=== PATIENT | male | born 1945 | race Caucasian/White ===

== ENCOUNTER → 2017-06-14 13:21 | Outpatient (CLI) | payer MEDICARE, SELFPAY ==
--- NOTE | 2017-06-14 13:23 | RAD_ITS ---
STUDY: X-RAY - PELVIS AND RIGHT HIP REASON FOR EXAM: Male, 72 years old. Follow-up after right hip surgery. TECHNIQUE: Radiological exam, hip, unilateral, with pelvis when performed; 2 or 3 views. COMPARISON: January 19, 2017 FINDINGS: There is a non-specific bowel gas pattern. There are phleboliths in the pelvis. There is stable generalized osteopenia. Normal bilateral iliac wings, sacroiliac joints and visualized sacrum. Normal bilateral superior and inferior pubic rami. Normal pubic symphysis. Normal bilateral ischial tuberosities. There is a stable intramedullary rishi within the proximal femur with interlocking femoral nail. No complications are noted. There is minimal callus formation at the previously described fracture site. No complications are noted. RAD/Hip 2-3 Views with Pelvis IMPRESSION: Stable osteopenia and postsurgical changes. No complications. Electronically Signed: Constantino Rucker MD at 10:17 EST , Service support ,
== END ==
PROVIDERS: Family Provider Family Medicine; PCP Family Medicine; Visit Provider Orthopaedic Surgery
DX: M85.89 Other specified disorders of bone density and structure, multiple sites (principal)
CPT/HCPCS: 73502

== ENCOUNTER → 2017-10-29 15:59 | Outpatient (CLI) | payer MEDICARE, SELFPAY ==
[2017-10-29 17:07] LABS: Thyroid Stim Hormone (TSH) 0.54 uIU/mL (0.358-3.74)
== END ==
PROVIDERS: Family Provider Family Medicine; PCP Family Medicine; Visit Provider Family Medicine
DX: R53.83 Other fatigue (principal)
CPT/HCPCS: 36415; 84443

== ENCOUNTER → 2017-12-25 10:07 | Outpatient (CLI) | payer MEDICARE, SELFPAY ==
[2017-12-25 11:46] LABS: PSA,Total- Diagnostic 8.17 ng/mL (0.0-4.0)
== END ==
PROVIDERS: Family Provider Family Medicine; PCP Family Medicine; Visit Provider Nurse Practitioner Adult Health
DX: R97.20 Elevated prostate specific antigen [PSA] (principal)
CPT/HCPCS: 36415; 84153

== ENCOUNTER → 2018-01-28 08:03 | Outpatient (CLI) | payer MEDICARE, SELFPAY ==
--- NOTE | 2018-01-28 | IMM_PTH ---
PATIENT: BERNARDA JOSEPH LOC: [facility] U#:[id number] AGE/SX: 79/M ROOM: RE01/28/[address]: Dr. Claudio Garcia MD : 1945 BED: DIS: SPEC #: [id number] RECD: 01/30/18 13:20 STATUS: FABI REQ #: [id number] ATDEO: 01/28/18 00:[address]: Claudio Garcia DEPT: IMMUNOHISTOCHEMISTRY RECD BY: Cailin Rangel ENTERED: 01/30/18 13:23 SP TYPE: IMMUNO OTHR DR: Dr. Luis Medina MD Tissues: B - PROSTATE RIGHT C - PROSTATE RIGHT E - PROSTATE LEFT F - PROSTATE LEFT Procedures: CK8 (add) 34BE12 (add) P40 (add) 34BE12 (initial) PHYSICIAN & INSTITUTION [place] [id number] SPECIMEN INFORMATION: Tissue Source: B - Right prostate mid, C - Right prostate base, E - Left prostate mid, F - Left prostate base Clinical Info: Elevated PSA Specimen Number: [id number] B, C, E, F CPT code: 42005, 88308 x8 METHODOLOGY: Deparaffinized sections of prefer/formalin-fixed tissue or PAP/DQ stained slides are incubated with monoclonal/polyclonal antibodies/oligonucleotide probes. Localization is made via biotin free immunoperoxidase method. Appropriate controls are performed and reacted as expected. Results on target cell population are indicated in the following table: RESULTS: ANTIBODY / CLONE RESULT Block B P40 (BC28) positive 34BE12 (34BE12) positive Block C P40 (BC28) negative 34BE12 (34BE12) negative Block E P40 (BC28) negative 34BE12 (34BE12) negative Block F P40 (BC28) negative 34BE12 (34BE12) negative CK8 (39uozlO70) positive These tests were developed and their performance characteristics determined by [facility]. They may not have been cleared or approved by the U.S. Food and Drug Administration. The FDA has determined that such clearance or approval is not necessary. INTERPRETATION: B. Right prostate, mid, core biopsy: Negative for adenocarcinoma. C. Right prostate, base, core biopsy: Adenocarcinoma. E. Left prostate, mid, core biopsy: Adenocarcinoma. F. Left prostate, base, core biopsy: Adenocarcinoma. SJ:vangie 01/31/18
--- NOTE | 2018-01-28 08:00 | PROSBIL_PTH ---
PATIENT: BERNARDA JOSEPH LOC: [facility] U#:[id number] AGE/SX: 79/M ROOM: RE01/28/[address]: Dr. Claudio Garcia MD : 1945 BED: DIS: SPEC #: [id number] RECD: 01/28/18 17:01 STATUS: FABI PARKER #: [id number] TADEO: 01/28/18 08:[address]: Claudio Garcia DEPT: SURGICAL PATHOLOGY RECD BY: Juan Mahan ENTERED: 01/29/18 13:26 SP TYPE: PROST BX RADHA DR: Dr. Luis Medina MD Tissues: A - PROSTATE RIGHT B - PROSTATE RIGHT C - PROSTATE RIGHT D - PROSTATE LEFT E - PROSTATE LEFT F - PROSTATE LEFT Procedures: PROSTATE BX HEADER OPERATION: Prostate biopsy PRE-OP DIAGNOSIS: Elevated PSA TISSUE SUBMITTED: A - Right apex, B - Right mid, C - Right base, D - Left apex, E - Left mid, F - Left base MICROSCOPIC DIAGNOSIS A. Right prostate, apex, core biopsy: A fragment of fibromuscular tissue, no pathologic diagnosis. B. Right prostate, mid, core biopsy: Prostatic tissue, negative for malignancy. See comment. C. Right prostate, base, core biopsy: Prostatic adenocarcinoma: [place] grade: 3+3=6 Number of cores involved: 1 out 2 Proportion of tissue involved: <5% Perineural invasion: Not identified. Greatest tumor length: <0.1 cm See comment. D. Left prostate, apex, core biopsy: Prostatic tissue, negative for malignancy. E. Left prostate, mid, core biopsy: Prostatic adenocarcinoma: [place] grade: 3+3=6 Number of cores involved: 1 out of 1 Proportion of tissue involved: ~30% Perineural invasion: Not identified. Greatest tumor length: 0.4 cm See comment. F. Left prostate, base, core biopsy: Prostatic adenocarcinoma: [place] grade: 4+3=7 Number of cores involved: 1 out of 2 Proportion of tissue involved: <5% Perineural invasion: Not identified. Greatest tumor length: 0.1 cm Focal atrophy. See comment. SJ:vangie 01/30/18 COMMENT B, C, E & F - Immunohistochemistry ([id number]) supports the above diagnosis. This case has been reviewed in consultation with Dr. Hoang who concurs with the above diagnosis. MICROSCOPIC DESCRIPTION Slides are reviewed. GROSS DESCRIPTION A - Received is one container designated prostate, right apex. The specimen consists of one elongated fragment of light buchanan-white soft tissue measuring 0.7 cm in length and 0.1 cm in diameter. The specimen is totally submitted in one cassette. B - Received is one container designated prostate, right mid. The specimen consists of two elongated fragments of light buchanan-white soft tissue measuring 1 and 1.5 cm in length and 0.1 cm in diameter. The specimen is totally submitted in one cassette. C - Received is one container designated prostate, right base. The specimen consists of two elongated fragments of light buchanan-white soft tissue measuring 1 and 1.5 cm in length and 0.1 cm in diameter. The specimen is totally submitted in one cassette. D - Received is one container designated prostate, left apex. The specimen consists of two elongated fragments of light buchanan-white soft tissue measuring 1 and 2 cm in length and 0.1 cm in diameter. The specimen is totally submitted in one cassette. E - Received is one container designated prostate, left mid. The specimen consists of one elongated fragment of light buchanan-white soft tissue measuring 1.5 cm in length and 0.1 cm in diameter. The specimen is totally submitted in one cassette. F - Received is one container designated prostate, left base. The specimen consists of two elongated fragments of light buchanan-white soft tissue measuring 1.3 and 2 cm in length and 0.1 cm in diameter. The specimen is totally submitted in one cassette. / SJ:rg 01/29/18 TC:0 CPT: G0146
== END ==
PROVIDERS: Family Provider Family Medicine; PCP Family Medicine; Referring Provider Urology; Visit Provider Urology
DX: R97.20 Elevated prostate specific antigen [PSA] (principal)
CPT/HCPCS: 88305; 88341; 88342; G0416

== ENCOUNTER → 2018-02-08 08:20 | Outpatient (CLI) | payer MEDICARE, SELFPAY ==
--- NOTE | 2018-02-08 08:22 | NM_ITS ---
CLINICAL: 72-year-old male with history of recent diagnosis of primary prostate carcinoma. WHOLE BODY 99m Tc MDP RADIONUCLIDE BONE SCINTIGRAPHY COMPARISON: Previous limited three phase bone scintigraphy study dated 01/24/2017 FINDINGS: Following the intravenous administration of 24.7 mCi of 99m Tc MDP, whole body bone images reveal: 1. Increased radiopharmaceutical concentration is redefined in the right proximal femoral metaphysis-intertrochanteric region, proximal femoral diaphysis. The intensity of uptake on the current examination is significantly reduced when compared to the study dated 01/24/2017. 2. An increase in tracer concentration is identified in the sternoclavicular and acromioclavicular compartments of both shoulders, upper-lower lower cervical spine posteriorly on the left and right, second-10th thoracic vertebra posteriorly on the right, 12th thoracic vertebra posteriorly on the left, fifth lumbar vertebra posteriorly on the right, the right wrist. 3. The remaining skeletal structures are scintigraphically unremarkable with normal-appearing renal images and urinary bladder activity identified. A significant thoracic-lumbar scoliosis is defined. Asymmetric increased uptake is visualized in the region of the right frontal orbital calvarium. NM/Bone Scan Whole Body IMPRESSION: 1. The increase in radiopharmaceutical concentration identified in the right proximal femur remains consistent with osteoblastic turnover attributed to trauma-fracture. 2. 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 3. Facilitated uptake noted in the region of the right frontal calvarium may be further investigated with plain film radiography. 4. Overall compared to the previous 3 phase bone scintigraphy study dated 01/24/2017, there is significant interval improvement in the previously defined right proximal femur fracture. 5. There is no definitive typical scintigraphic evidence of diffuse skeletal metastatic disease on the current examination. Electronically Signed: Juan Mcbride DO at 13:07 EDT Tel , Service support ,
== END ==
PROVIDERS: Family Provider Family Medicine; PCP Family Medicine; Referring Provider Urology; Visit Provider Urology
DX: C61 Malignant neoplasm of prostate (principal)
CPT/HCPCS: 78306

== ENCOUNTER → 2018-05-16 14:30 | Outpatient (CLI) | payer MEDICARE, SELFPAY ==
[2018-05-16 16:48] LABS: PSA,Total- Diagnostic 8.91 ng/mL (0.0-4.0)
== END ==
PROVIDERS: Family Provider Family Medicine; PCP Family Medicine; Referring Provider Urology; Visit Provider Urology
DX: C61 Malignant neoplasm of prostate (principal)
CPT/HCPCS: 36415; 84153

== ENCOUNTER → 2018-11-04 | Outpatient (CLI) | payer MEDICARE, SELFPAY ==
[2018-11-04 14:07] LABS: PSA,Total- Diagnostic 9.28 ng/mL (0.0-4.0)
== END | disposition home or self-care (01) ==
LOC: LAB 13:02
PROVIDERS: Family Provider Family Medicine; PCP Family Medicine; Referring Provider Urology; Visit Provider Urology
DX: C61 Malignant neoplasm of prostate (principal)
CPT/HCPCS: 36415; 84153

== ENCOUNTER → 2018-12-03 13:09 | Outpatient (CLI) | payer MEDICARE, SELFPAY ==
--- NOTE | 2018-12-03 | IMM_PTH ---
PATIENT: BERNARDA JOSEPH LOC: [facility] U#:[id number] AGE/SX: 79/M ROOM: RE12/03/[address]: Dr. Claudio Garcia MD : 1945 BED: DIS: SPEC #: [id number] RECD: 12/04/18 11:38 STATUS: FABI RELiu #: [id number] TADEO: 12/03/18 00:[address]: Claudio Garcia DEPT: IMMUNOHISTOCHEMISTRY RECD BY: Cailin Rangel ENTERED: 12/04/18 11:40 SP TYPE: IMMUNO OTHR DR: Dr. Luis Medina MD Tissues: C - PROSTATE RIGHT E - PROSTATE LEFT Procedures: 34BE12 (add) P40 (add) 34BE12 (initial) PHYSICIAN & INSTITUTION [place] [address] SPECIMEN INFORMATION: Tissue Source: C - Right prostate, base, core biopsy, E - Left prostate, mid, core biopsy Clinical Info: Elevated PSA Specimen Number: [id number] C & E CPT code: 48802 METHODOLOGY: Deparaffinized sections of prefer/formalin-fixed tissue or PAP/DQ stained slides are incubated with monoclonal/polyclonal antibodies/oligonucleotide probes. Localization is made via biotin free immunoperoxidase method. Appropriate controls are performed and reacted as expected. Results on target cell population are indicated in the following table: RESULTS: ANTIBODY / CLONE RESULT Block C P40 (BC28) negative 34BE12 (34BE12) negative Block E P40 (BC28) negative 34BE12 (34BE12) negative These tests were developed and their performance characteristics determined by [facility]. They may not have been cleared or approved by the U.S. Food and Drug Administration. The FDA has determined that such clearance or approval is not necessary. INTERPRETATION: C. Right prostate, base, core biopsy: Adenocarcinoma. E. Left prostate, mid, core biopsy: Adenocarcinoma. SJ:vangie 12/04/18
--- NOTE | 2018-12-03 08:00 | PROSBIL_PTH ---
PATIENT: BERNARDA JOSEPH LOC: [facility] U#:[id number] AGE/SX: 79/M ROOM: RE12/03/[address]: Dr. Claudio Garcia MD : 1945 BED: DIS: SPEC #: [id number] RECD: 12/03/18 12:15 STATUS: FABI PARKER #: [id number] TADEO: 12/03/18 08:[address]: Claudio Garcia DEPT: SURGICAL PATHOLOGY RECD BY: Abdias Santos ENTERED: 12/03/18 13:26 SP TYPE: PROST BX RADHA DR: Dr. Luis Medina MD Tissues: A - PROSTATE RIGHT B - PROSTATE RIGHT C - PROSTATE RIGHT D - PROSTATE LEFT E - PROSTATE LEFT F - PROSTATE LEFT Procedures: PROSTATE BX HEADER OPERATION: Prostate biopsy PRE-OP DIAGNOSIS: Elevated PSA TISSUE SUBMITTED: A - Right apex, B - Right mid, C - Right base, D - Left apex, E - Left mid, F - Left base MICROSCOPIC DIAGNOSIS A. Right prostate, apex, core biopsy: Prostatic tissue, negative for malignancy. B. Right prostate, mid, core biopsy: Prostatic tissue, negative for malignancy. C. Right prostate, base, core biopsy: Prostatic adenocarcinoma: Diana grade: 3+4=7 Number of cores involved: 2/2 Proportion of tissue involved: ~5% Perineural invasion: Not identified. Greatest tumor length: 0.2 cm See comment. D. Left prostate, apex, core biopsy: Prostatic tissue, negative for malignancy. See comment. E. Left prostate, mid, core biopsy: Prostatic adenocarcinoma: Diana grade: 3+3=6 Number of cores involved: 2/4, Proportion of tissue involved: ~10% Perineural invasion: Not identified. Greatest tumor length: 0.4 cm. See comment. F. Left prostate, base, core biopsy: Prostatic adenocarcinoma: Diana grade: 4+5=9 Number of cores involved: 1/2 Proportion of tissue involved: ~20% Perineural invasion: Not identified. Greatest tumor length: 0.5 cm Focal atrophy and chronic inflammation. SJ:vangie 12/04/18 COMMENT C. Immunohistochemistry ([id number]) supports the above diagnosis. D. The specimen predominantly consists of skeletal muscle tissue and stromal tissue. E. Immunohistochemistry ([id number]) supports the above diagnosis. Please make reference to previous specimen ([id number]) right prostate, base, left prostate, mid and left prostate, base with diagnosis of prostatic adenocarcinoma. Case has been reviewed in consultation with Dr. Hoang who concurs with the above diagnosis. IDC:AM MICROSCOPIC DESCRIPTION Slides are reviewed. GROSS DESCRIPTION A - Received is one container designated prostate, right apex. The specimen consists of two elongated fragments of light buchanan-white soft tissue each measuring 1 cm in length and 0.1 cm in diameter. The specimen is totally submitted in one cassette. B - Received is one container designated prostate, right mid. The specimen consists of two elongated fragments of light buchanan-white soft tissue each measuring 1.5 cm in length and 0.1 cm in diameter. The specimen is totally submitted in one cassette. C - Received is one container designated prostate, right base. The specimen consists of two elongated fragments of light buchanan-white soft tissue each measuring 1 cm in length and 0.1 cm in diameter. The specimen is totally submitted in one cassette. D - Received is one container designated prostate, left apex. The specimen consists of two elongated fragments of light buchanan-white soft tissue each measuring 1 cm in length and 0.1 cm in diameter. The specimen is totally submitted in one cassette. E - Received is one container designated prostate, left mid. The specimen consists of four elongated fragments of light buchanan-white soft tissue each measuring 0.8 cm in length and 0.1 cm in diameter. The specimen is totally submitted in one cassette. F - Received is one container designated prostate, left base. The specimen consists of two elongated fragments of light buchanan-white soft tissue each measuring 1.5 cm in length and 0.1 cm in diameter. The specimen is totally submitted in one cassette. / AM:vangie 12/03/18 TC:0 CPT: G0146
== END ==
PROVIDERS: Family Provider Family Medicine; PCP Family Medicine; Referring Provider Urology; Visit Provider Urology
DX: R97.20 Elevated prostate specific antigen [PSA] (principal)
CPT/HCPCS: 88305; 88341; 88342; G0416

== ENCOUNTER 2019-01-15 10:51 | Day surgery (SDC) | payer MEDICARE, SELFPAY ==
[2019-01-15 11:10] VITALS: BP 153/83; PULSE 108; RESP 15; TEMP 37; O2SAT 100; BMI 24.7
[2019-01-15] MEDS: Lactated Ringers 1,000 ML 100 ML IV (11:21)
--- NOTE | 2019-01-15 13:40 | DCINST_ITS ---
Discharge Diet: Light diet - advance as tolerated Discharge Activity: Return to Normal Activity Suture Line Care: Avoid Pulling/Pushing, Avoid Pinching/Bending Allergies/Adverse Reactions: Allergies metronidazole [From Flagyl] Adverse Reaction (Verified 01/15/19 11:04) Nausea/Vom/Diarrhea VOMITING DECONGESTANTS Allergy (Uncoded 01/15/19 11:04) TACHYCARDIA Medications to take at Discharge Tamsulosin HCl 1 tab PO DAILY 07/22/15 Imipramine HCl 25 mg PO QHS 01/02/17 multivitamin tablet 1 tab PO QDAY 04/27/17 oxycodone-acetaminophen 5 mg-325 mg tablet 1 tab PO TID 04/27/17 Bicalutamide [Casodex] 50 mg PO DAILY 01/08/19 L.acidoph,Paracasei, B.lactis [Probiotic] 1 ea PO DAILY 01/08/19 Niacin 1,000 mg PO DAILY 01/08/19 Nifedipine [Nifedipine ER] 30 mg PO DAILY 01/08/19 Sennosides [Senna Lax] 8.6 mg PO DAILY 01/08/19 Sulfamethoxazole/Trimethoprim [Sulfamethoxazole-Tmp Ds Tablet] 1 ea PO PRN PRN 01/08/19 Primary Care Physician: Luis Medina MD [Primary Care Provider] - Test Results: Test results from this visit will be discussed in further detail at your follow- up appointment, if applicable. Please Follow Up With: Claudio Garcia MD When: keep next appt
--- NOTE | 2019-01-15 13:41 | OP.PCM_ITS ---
Report of Operation Date of Procedure: 01/15/19 Pre-Operative Diagnosis: Prostate cancer Post-Operative Diagnosis: Same Surgery/Procedure Performed:: Transperineal placement of gold fiducial markers for radiation planning, and transperineal placement of spacer hydrogel organ at risk. Description of Surgical Findings:: 73-year-old male who was found to have prostate cancer elected for observation initially but the PSA kept rising with a follow-up biopsy that showed higher grade cancer so at this point he is going to undergo treatment of his prostate cancer we talked about options of treatment including surgery to remove the prostate or radiation therapy in consultation with his physician he has not had a second opinion with radiation oncology he discussed with me regarding surgery and after weighing the risk and benefits all the procedures he wishes to proceed with radiation therapy. Today were in place gold fiducial markers of the prostate for treatment planning for the radiation and also venous place a hydrogel spacer gel to hopefully separate the rectum off the prostate to create some space for his radiation treatment to spare the rectum of rectal task to see. He understands the risk of the procedure include bleeding and infection and migration of the hydrogel and the gold markers. 73-year-old male taken back to the operating room after smooth induction of anesthesia he was placed in dorsolithotomy position with the legs in stirrups we then placed the brachytherapy template on the table adjusted the template height to the table we used a biplanar ultrasound by SHAHID to perform ultrasonography of the prostate. Identify the prostate base the apex seminal vesicles the right and left aspect of the prostate the spacer Retzius above the prostate and also the space below the prostate that do not be a space was identified the fat plane below the prostate was also identified. Once identifying the proper landmarks I then used the first gold leaf laborer on a 18-gauge needle was advanced on the patient's right side into the prostate mid and then we pulled off the stopper advanced the plunger and deployed the gold leaf laborer into the mid prostate and pulled back in the needle we then did the same procedure on the left side with 2 markers placed in the prostate base and apex once her markers were placed then the spacer hydrogel was prepared in the back table first we mixed the blue container per the kiln charger's instruction that we mixed the clear container we put the Dopplers together as instructed and after constructing the mix of hydrogel in the back table I then marked the bevel on the long needle we flushed it with saline and then used the bevel tip down to advance underneath the prostate into the fat plane in the space below the prostate above the rectum once we are in the proper plane we injected a puff of normal saline you could see the separation between the rectum and the prostate we confirmed our location by ultrasound both trans-rectal view and also biplanar view after the ultrasound confirmed our position then the hydrogel was injected into that space over course of 12 seconds created a nice separation between the rectum and the prostate. The needle was then removed the ultrasound probe was then removed exam of the prostate was performed he could feel the hydrogen gel right below the prostate pushing down the rectum. There is no extravasation of the hydrogel into the rectum. Patient was then cleaned and antiseizure was reversed he was taken back to PACU in good condition and will see him back as planned after his radiation and continue with ADT Type of Anesthesia:: General Drains: none - Admit VTE Documentation VTE Present on Admission: No VTE Mechan Device Prophylaxis: SCD's
[2019-01-15 13:50] VITALS: BP 126/90; BP 153/83; PULSE 92; RESP 16; TEMP 36.5; O2SAT 93
[2019-01-15 14:00] VITALS: BP 111/82; BP 153/83; PULSE 85; RESP 16; O2SAT 95
[2019-01-15 14:15] VITALS: BP 134/90; BP 153/83; PULSE 95; RESP 16; O2SAT 96
[2019-01-15 14:23] VITALS: BP 137/87; BP 153/83; PULSE 97; RESP 16; TEMP 36.4; O2SAT 94
[2019-01-15 15:12] VITALS: BP 130/81; BP 153/83; PULSE 94; RESP 18; TEMP 36.8; O2SAT 98
== END 2019-01-15 15:15 | disposition home health service (06) ==
LOC: SDC 10:51 → AC 10:52
PROVIDERS: Family Provider Family Medicine; PCP Family Medicine; Referring Provider Urology; Visit Provider Urology
PROC: (CPT 55874; principal; 2019-01-15 12:25)
DX: C61 Malignant neoplasm of prostate (principal); N40.1 Benign prostatic hyperplasia with lower urinary tract symptoms; R35.0 Frequency of micturition; R35.1 Nocturia; I10 Essential (primary) hypertension; E78.5 Hyperlipidemia, unspecified; R97.20 Elevated prostate specific antigen [PSA]; Z87.440 Personal history of urinary (tract) infections; Z79.899 Other long term (current) drug therapy
CPT/HCPCS: 55874; 55876; J7120; J2405

== ENCOUNTER → 2019-01-28 09:08 | Outpatient (CLI) | payer MEDICARE, SELFPAY ==
[2019-01-15 11:10] VITALS: BMI 24.7
[2019-01-27 10:18] LABS: Absolute Lymphocyte Count 1.24 X10^3/uL (0.83-4.51); Absolute Neutrophil Count 5.9 X10^3/uL (2.0-7.7); Basophil# 0.07 X10^3/uL; Basophil% 0.9 % (0-1); Eosinophil# 0.12 X10^3/uL; Eosinophils% 1.5 % (0-5); Hematocrit 48.1 % (40-54); Hemoglobin 15.7 g/dL (13.0-16.5); Lymphocyte # 1.24 X10^3/ul (4.0); Lymphocyte % 15.1 % (19-41); Mean Corp Hgb Conc 32.6 g/dL (32-36); Mean Corpuscular Hgb 29.5 pg (27.0-32.0); Mean Corpuscular Volume 90.4 fL (80-94); Mean Platelet Vol. 9.5 fl (6.2-12.0); Monocyte# 0.83 X10^3/uL; Monocyte% 10.1 % (0-10); NRBC Flagged by Analyzer 0 % (0-5); Neutrophil % 71.9 % (47-70); Platelet Count 298 K/mm3 (150-450); RBC Distribution Width CV 12.9 % (11.6-14.6); RBC Distribution Width SD 42.7 fl (35.1-43.9); Red Blood Count 5.32 M/mm3 (4.6-6.2); White Blood Count 8.2 K/mm3 (4.4-11.0)
[2019-01-27 10:57] LABS: Creatinine, Serum 0.69 mg/dL (0.70-1.30); EST Glomerular Filtration Rate 121 mL/min (>60); Est Glom Filt Rate - Afr Amer 146 mL/min (>60); PSA,Total- Diagnostic 4.65 ng/mL (0.0-4.0)
--- NOTE | 2019-01-28 09:16 | CT_ITS ---
STUDY: CT PELVIS WITH CONTRAST REASON FOR EXAM: Male, 73 years old. Prostate cancer radiation planning. RADIATION DOSAGE (If Supplied By Facility): CTDIvol = ( 24.53 ) mGy, DLP = ( 767.47 ) mGycm TECHNIQUE: Transaxial imaging of the pelvis was performed with oral contrast. IV/Oral 100ML ISOVUE 300 100 was administered intravenously. Individualized dose optimization techniques were used for this CT. COMPARISON: None. FINDINGS: Normal urinary bladder. Enlarged prostate gland with calcifications and metallic markers in the periphery. Catheter other device within the urethra. Normal visualized small intestine. There are multiple colonic diverticula of the sigmoid colon consistent with chronic diverticulosis. There is no pelvic fluid. There is no pelvic lymphadenopathy or mass lesion. Normal visualized pelvic arteries. Small umbilical hernia containing fat. Status post right hip arthroplasty which produces streak artifact. Levoscoliosis of the lumbar spine. CT/Abdomen/Pelvis WITH Contrast IMPRESSION: Prostate cancer radiation planning CT. Electronically Signed: Juan Stephenson MD at 13:52 EDT Tel , Service support ,
== END ==
PROVIDERS: Family Provider Family Medicine; PCP Family Medicine; Referring Provider Radiology Radiation Oncology; Visit Provider Radiology Radiation Oncology
DX: Z01.818 Encounter for other preprocedural examination (principal); C61 Malignant neoplasm of prostate
CPT/HCPCS: 36415; 74177; 82565; 84153; 85025; Q9967

== ENCOUNTER → 2019-02-11 13:02 | Outpatient (CLI) | payer MEDICARE, SELFPAY ==
[2019-01-15 11:10] VITALS: BMI 24.7
[2019-02-11 13:15] LABS: Bacteria 0 SEEN /hpf (None Seen); Mucous, Urine 0 SEEN /hpf (<or=2+); Red Blood Cells-Urine 0 SEEN /hpf (0-5); Squamous Epithelial Cells - UA 0 SEEN /hpf (0-5); White Blood Cells 0 SEEN /hpf (0-5)
[2019-02-11 13:46] LABS: Color, Urine Yellow (Yellow); Glucose, Dipstick Normal (Normal); Ketone-Dipstick Negative (Negative); Leukocyte Esterase-Dipstick Negative /ul (Negative); Nitrite-Dipstick Negative (Negative); Occult Blood-Urine Negative /ul (Negative); Protein-Dipstick Negative (Negative); Specific Gravity, Urine 1.015 (1.002-1.030); Urine Bilirubin Dipstick Negative (Negative); Urine Clarity Clear (Clear); Urine Urobilinogen Normal (Normal); Urine pH 6.5 (5.0 - 8.0)
== END ==
PROVIDERS: Family Provider Family Medicine; PCP Family Medicine; Referring Provider Radiology Radiation Oncology; Visit Provider Radiology Radiation Oncology
DX: C61 Malignant neoplasm of prostate (principal); R30.9 Painful micturition, unspecified
CPT/HCPCS: 81001

== ENCOUNTER → 2019-02-27 14:22 | Outpatient (CLI) | payer MEDICARE, SELFPAY ==
[2019-02-27 15:29] LABS: Absolute Lymphocyte Count 0.41 X10^3/uL (0.83-4.51); Absolute Neutrophil Count 5.5 X10^3/uL (2.0-7.7); Basophil# 0.05 X10^3/uL; Basophil% 0.7 % (0-1); Eosinophil# 0.14 X10^3/uL; Hematocrit 42.8 % (40-54); Hemoglobin 13.8 g/dL (13.0-16.5); Lymphocyte # 0.41 X10^3/ul (4.0); Lymphocyte % 5.9 % (19-41); Mean Corp Hgb Conc 32.2 g/dL (32-36); Mean Corpuscular Hgb 29.9 pg (27.0-32.0); Mean Corpuscular Volume 92.8 fL (80-94); Mean Platelet Vol. 9.9 fl (6.2-12.0); Monocyte# 0.85 X10^3/uL; Monocyte% 12.3 % (0-10); NRBC Flagged by Analyzer 0 % (0-5); Neutrophil # 5.45 X10^3/uL (2.7-7.7); Neutrophil % 78.7 % (47-70); POSITIVE DIFFERENTIAL YES; Platelet Count 256 K/mm3 (150-450); RBC Distribution Width CV 12.9 % (11.6-14.6); RBC Distribution Width SD 43.5 fl (35.1-43.9); Red Blood Count 4.61 M/mm3 (4.6-6.2); White Blood Count 6.9 K/mm3 (4.4-11.0)
[2019-02-27 15:46] LABS: Differential Indicated SCAN CRITERIA MET
[2019-02-27 16:15] LABS: Differential Comment SCANNED
== END ==
PROVIDERS: Family Provider Family Medicine; PCP Family Medicine; Referring Provider Radiology Radiation Oncology; Visit Provider Radiology Radiation Oncology
DX: C61 Malignant neoplasm of prostate (principal)
CPT/HCPCS: 36415; 85025

== ENCOUNTER → 2019-03-07 14:11 | Outpatient (CLI) | payer MEDICARE, SELFPAY ==
--- NOTE | 2019-03-07 14:33 | RAD_ITS ---
STUDY: X-RAY CHEST REASON FOR EXAM: Male, 73 years old. Evidence of breath. TECHNIQUE: PA and lateral views of the chest. COMPARISON: 01/02/2017. FINDINGS: There is poor visualization of the right mid upper lung parenchyma due to severe musculoskeletal dystrophy/deformity of the hemithorax. The visualized right mid lower lung field and left hemithorax are clear. There is no demonstrated pleural abnormality. Normal size heart. Normal mediastinum and adrian. Normal visualized pulmonary arteries. There is atherosclerotic calcification of the aortic arch with tortuosity. There are diffuse degenerative changes of the visualized thoracic spine. There is degenerative osteoarthritis of the bilateral shoulders. There is no demonstrated abnormality of the visualized soft tissue structures of the upper abdomen. RAD/Chest PA and Lateral IMPRESSION: No acute cardiopulmonary process seen. Electronically Signed: Francia Aguilar MD at 3:09 EST , Service support ,
== END ==
PROVIDERS: Family Provider Family Medicine; PCP Family Medicine; Referring Provider Family Medicine; Visit Provider Family Medicine
DX: R06.02 Shortness of breath (principal)
CPT/HCPCS: 71046

== ENCOUNTER → 2019-03-10 14:19 | Outpatient (CLI) | payer MEDICARE, SELFPAY ==
[2019-03-10 14:27] LABS: Bacteria 0 SEEN /hpf (None Seen); Mucous, Urine 0 SEEN /hpf (<or=2+); Squamous Epithelial Cells - UA 0 SEEN /hpf (0-5)
[2019-03-10 14:47] LABS: Color, Urine Amber (Yellow); Glucose, Dipstick Normal (Normal); Ketone-Dipstick Negative (Negative); Leukocyte Esterase-Dipstick 25 /ul (Negative); Nitrite-Dipstick Positive (Negative); Occult Blood-Urine 10 /ul (Negative); Protein-Dipstick Negative (Negative); Urine Clarity Sl. Cloudy (Clear); Urine Urobilinogen 8 mg/dl (Normal)
[2019-03-10 14:50] LABS: Urine Bilirubin Dipstick 3 mg/dL (Negative)
[2019-03-10 14:53] LABS: White Blood Cells 0-5 SEEN /hpf (0-5)
[2019-03-10 14:54] LABS: Red Blood Cells-Urine 0-5 SEEN /hpf (0-5)
== END ==
PROVIDERS: Family Provider Family Medicine; PCP Family Medicine; Referring Provider Radiology Radiation Oncology; Visit Provider Radiology Radiation Oncology
DX: C61 Malignant neoplasm of prostate (principal); R30.9 Painful micturition, unspecified
CPT/HCPCS: 36415; 81001

== ENCOUNTER → 2019-03-14 13:00 | Outpatient (CLI) | payer MEDICARE, SELFPAY ==
--- NOTE | 2019-03-14 13:03 | VDLE_ITS ---
Reason For Study: Edema RIGHT LEFT GSV is normal. GSV is normal. CFV is compressible, spontaneous, phasic, CFV is compressible, spontaneous, phasic, competent and demonstrates normal competent, and demonstrates normal augmentation. augmentation. FV is compressible, spontaneous, phasic, FV is compressible, spontaneous, phasic, competent and demonstrates normal competent and demonstrates normal augmentation. augmentation. POP V is compressible, spontaneous, phasic, POP V is compressible, spontaneous, phasic, competent and demonstrates normal competent and demonstrates normal augmentation. augmentation. T/P Trunk is compressible. T/P Trunk is compressible. PTV is compressible. PTV is compressible. RT PerV is compressible. LT PerV is compressible. Procedure Exam performed in department. A preliminary report was called and/or faxed to [facility]. Interpretation Summary Deep veins of the lower extremities are bilaterally patent and compressible segmentally. There is no evidence of deep vein thrombosis on either side. Valvular competence appears intact within the proximal deep venous systems bilaterally. The great saphenous veins appear bilaterally patent and compressible segmentally. Ordering Physician: Luis Medina Referring Physician: Luis Medina Performed By: Kayla Marks RVT
== END ==
PROVIDERS: Family Provider Family Medicine; PCP Family Medicine; Referring Provider Family Medicine; Visit Provider Family Medicine
DX: R60.0 Localized edema (principal)
CPT/HCPCS: 93970

== ENCOUNTER → 2019-03-19 11:24 | Outpatient (CLI) | payer MEDICARE, SELFPAY ==
[2019-03-19 12:03] LABS: Absolute Lymphocyte Count 0.29 X10^3/uL (0.83-4.51); Absolute Neutrophil Count 5.3 X10^3/uL (2.0-7.7); Basophil# 0.06 X10^3/uL; Basophil% 0.9 % (0-1); Eosinophils% 1.5 % (0-5); Hematocrit 35.3 % (40-54); Hemoglobin 11.4 g/dL (13.0-16.5); Lymphocyte # 0.29 X10^3/ul (4.0); Lymphocyte % 4.5 % (19-41); Mean Corp Hgb Conc 32.3 g/dL (32-36); Mean Corpuscular Hgb 30.9 pg (27.0-32.0); Mean Corpuscular Volume 95.7 fL (80-94); Mean Platelet Vol. 9.6 fl (6.2-12.0); Monocyte# 0.73 X10^3/uL; Monocyte% 11.3 % (0-10); NRBC Flagged by Analyzer 0 % (0-5); Neutrophil # 5.26 X10^3/uL (2.7-7.7); Neutrophil % 81.2 % (47-70); POSITIVE DIFFERENTIAL YES; Platelet Count 261 K/mm3 (150-450); RBC Distribution Width CV 13.8 % (11.6-14.6); RBC Distribution Width SD 48.2 fl (35.1-43.9); Red Blood Count 3.69 M/mm3 (4.6-6.2); White Blood Count 6.5 K/mm3 (4.4-11.0)
[2019-03-19 12:04] LABS: Differential Indicated SCAN CRITERIA MET
== END ==
PROVIDERS: Family Provider Family Medicine; PCP Family Medicine; Referring Provider Radiology Radiation Oncology; Visit Provider Radiology Radiation Oncology
DX: C61 Malignant neoplasm of prostate (principal)
CPT/HCPCS: 36415; 85025

== ENCOUNTER → 2019-08-26 09:47 | Outpatient (CLI) | payer MEDICARE, SELFPAY ==
[2019-08-26 11:01] LABS: PSA,Total- Diagnostic < 0.01 ng/mL (0.0-4.0)
== END ==
PROVIDERS: PCP Family Medicine; Referring Provider Urology; Visit Provider Urology
DX: C61 Malignant neoplasm of prostate (principal)
CPT/HCPCS: 36415; 84153

== ENCOUNTER 2020-02-03 00:42 | Emergency (ER) | payer MEDICARE, SELFPAY ==
[2020-02-03 00:43] VITALS: BP 161/107; PULSE 84; RESP 18; TEMP 36.7; O2SAT 94; BMI 24.7
--- NOTE | 2020-02-03 01:00 | RAD_ITS ---
STUDY: X-RAY - RIGHT KNEE REASON FOR EXAM: Male, 74 years old. S/P FALL -- C/O PAIN AREA OF LT GREAT TOE AND LT 1ST METATARSAL, LT LATERAL MALLEOLUS , ANTERIOR BILAT KNEES WITH RT SIDE MORE PAINFUL THAN LEFT -- HX OF POLIO -- BEST IMAGES POSSIBLE, DUE TO PATIENT''S WEAKNESS IN LEGS TECHNIQUE: 3 view(s) of the knee. COMPARISON: None. FINDINGS: There is hardware transfixing the femur, patella and tibia. There is an avulsion fracture tibial tuberosity. There is prepatellar soft tissue swelling. There is a large joint effusion. RAD/Knee 3 Views IMPRESSION: There is an avulsion fracture tibial tuberosity. There is prepatellar soft tissue swelling. There is a large joint effusion. Electronically Signed: Winston Sherman MD at 1:38 EDT , Service support ,
--- NOTE | 2020-02-03 01:00 | RAD_ITS ---
STUDY: X-RAY - LEFT ANKLE REASON FOR EXAM: Male, 74 years old. S/P FALL -- C/O PAIN AREA OF LT GREAT TOE AND LT 1ST METATARSAL, LT LATERAL MALLEOLUS , ANTERIOR BILAT KNEES WITH RT SIDE MORE PAINFUL THAN LEFT -- HX OF POLIO -- BEST IMAGES POSSIBLE, DUE TO PATIENT''S WEAKNESS IN LEGS TECHNIQUE: 3 view(s) of the ankle. COMPARISON: None. FINDINGS: Normal visualized distal tibia and fibula. Normal medial and lateral malleoli. Normal tibiotalar articulation and ankle mortise. Normal visualized talus and calcaneus. The visualized subtalar, talonavicular, calcaneocuboid and tarsal articulations are normal. The soft tissue structures are unremarkable. RAD/Ankle min 3 Views IMPRESSION: Normal x-ray examination of the ankle. Electronically Signed: Winston Sherman MD at 1:30 EDT , Service support ,
--- NOTE | 2020-02-03 01:00 | RAD_ITS ---
STUDY: X-RAY - LEFT KNEE REASON FOR EXAM: Male, 74 years old. S/P FALL -- C/O PAIN AREA OF LT GREAT TOE AND LT 1ST METATARSAL, LT LATERAL MALLEOLUS , ANTERIOR BILAT KNEES WITH RT SIDE MORE PAINFUL THAN LEFT -- HX OF POLIO -- BEST IMAGES POSSIBLE, DUE TO PATIENT''S WEAKNESS IN LEGS TECHNIQUE: 3 view(s) of the knee. COMPARISON: None. FINDINGS: Normal visualized distal femur. Normal visualized proximal tibia and fibula. Normal proximal tibiofibular articulation. Normal medial femorotibial compartment. Normal lateral femorotibial compartment. Normal patellofemoral articulation. There is prepatellar soft tissue swelling. There is NO joint dislocation. RAD/Knee 3 Views IMPRESSION: There is NO acute bony injury. There is prepatellar soft tissue swelling. There is NO joint dislocation. Electronically Signed: Winston Sherman MD at 1:32 EDT , Service support ,
--- NOTE | 2020-02-03 01:00 | RAD_ITS ---
STUDY: X-RAY - LEFT FOOT CLINICAL: Male, 74 years old. S/P FALL -- C/O PAIN AREA OF LT GREAT TOE AND LT 1ST METATARSAL, LT LATERAL MALLEOLUS , ANTERIOR BILAT KNEES WITH RT SIDE MORE PAINFUL THAN LEFT -- HX OF POLIO -- BEST IMAGES POSSIBLE, DUE TO PATIENT''S WEAKNESS IN LEGS TECHNIQUE: 3 view(s) of the foot. COMPARISON: None. FINDINGS: Normal talus, calcaneus, and tarsal bones. Normal visualized subtalar, talonavicular, calcaneocuboid, tarsal and tarsometatarsal articulations. Normal metatarsi. There is degenerative arthrosis of the metatarsophalangeal joint of the hallux with a hallux valgus deformity. Normal tibial and fibular sesamoid bones. Normal interphalangeal joint of the great toe. Normal phalanges of the great toe. Normal second through fifth metatarsophalangeal joints. Normal interphalangeal joints and phalanges of the lesser toes. The soft tissue structures are unremarkable. RAD/Foot min 3 Views IMPRESSION: There is NO acute injury. Electronically Signed: Winston Sherman MD at 1:34 EDT , Service support ,
--- NOTE | 2020-02-03 02:08 | ED.DCSUM_ITS ---
History of Present Illness Chief Complaint: Fall Narrative: Patient presenting for evaluation secondary to a fall. Patient has a underlying history of past polio. He typically ambulates with crutches. He has had multiple orthopedic surgeries specifically of his right lower extremity. Patient states that he was trying to navigate his bathroom, suffered a mechanical fall where he fell onto his knees bilaterally and then actually bent backwards and fell onto his back. Patient states that he did mildly hit his hea d, but there is no loss of consciousness. He is not on any sort of anticoagulants. His main pain is in his bilateral knees and his left ankle and left foot. Pain is moderate worse with palpation. He does have swelling in the right knee. Review of systems otherwise negative. Past Medical History - Allergies and Home Meds Allergies/Adverse Reactions: Allergies metronidazole [From Flagyl] Adverse Reaction (Verified 02/03/20 00:46) Nausea/Vom/Diarrhea VOMITING DECONGESTANTS Allergy (Uncoded 02/03/20 00:46) TACHYCARDIA Primary Care Physician: Luis Medina MD [Primary Care Provider] - Prior records reviewed: Yes Past Medical History: - - Past history of polio Surgical History: - - Right ankle surgery, spine surgery x 2, ORIF right knee. Smoking Status: Never smoker - Family History Maternal Family History: Family History (Last Reviewed 09/23/18 @ 15:14 by Samantha Garcia) Other CVA (cerebral vascular accident) Myocardial infarction Family History: Reports: No pertinent history Review of Systems All systems negative except as indicated General: Denies: Chills, Fever, Sweats Eyes: Denies: Visual changes - bilaterally, Diplopia ENT: Denies: Rhinorrhea, Sore throat Cardiovascular: Denies: Chest pain, Palpitations Respiratory: Denies: Dyspnea, Cough, Dyspnea on exertion Gastrointestinal: Denies: Abdominal pain, Nausea, Vomiting, Diarrhea, Melena, Hematochezia Genitourinary: Denies: Dysuria, Hematuria, Frequency Musculoskeletal: Reports: Extremity Pain Skin: Denies: Rash, Wounds Neurological: Reports: Weakness - Weakness at baseline secondary to polio. Den ies: Headache, Numbness Physical Exam Vital Signs/Narrative: Vital Signs Temp Pulse Resp BP Pulse Ox 02/03/20 00:43 98.1 F 84 18 161/107 H 94 Inital Vital Signs reviewed: Yes General: Well nourished, Well developed Head: Normocephalic, Atraumatic Eyes: Perrl, EOMI Neck: Nontender, Full ROM. Negative for: Spinal Tenderness Cardiovascular: Regular rate, Regular rhythm, No murmurs Respiratory: No distress, CTA bilaterally, Chest nontender Abdomen: Soft, Nontender, Nondistended, Normal bowel sounds Back: Nontender Extremeties: Examination the patient's lower extremities, left extremity shows no outward signs of trauma, minimal anterior joint line pain of the left knee. Normal range of motion. Patient complains of some minimal lateral malleolus tenderness to palpation of the left ankle, normal range of motion. He also complains of some tenderness to palpation over the first metatarsal without any outward signs of deformity. Examination of the right lower extremity shows a large joint effusion to the right knee with multiple surgical scars present, anterior joint line tenderness to palpation. Limited range of motion secondary to pain. Patient's right foot and ankle are fused, so there is no range of motion there but the patient does not complain of any pain. Diagnostic/Tx/Re-eval Clinical Impression(s) from Imaging Studies Ankle X-Ray 02/03/20 01:00 IMPRESSION: Normal x-ray examination of the ankle. Electronically Signed: Winston Sherman MD at 1:30 EDT , Service support , Foot X-Ray 02/03/20 01:00 IMPRESSION: There is NO acute injury. Electronically Signed: Winston Sherman MD at 1:34 EDT , Service support , Knee X-Ray 02/03/20 01:00 IMPRESSION: There is an avulsion fracture tibial tuberosity. There is prepatellar soft tissue swelling. There is a large joint effusion. Electronically Signed: Winston Sherman MD at 1:38 EDT , Service support , Knee X-Ray 02/03/20 01:00 IMPRESSION: There is NO acute bony injury. There is prepatellar soft tissue swelling. There is NO joint dislocation. Electronically Signed: Winston Sherman MD at 1:32 EDT , Service support , - Medical Decision Making Patient presented secondary to a mechanical fall. Primary and secondary surveys showed only injuries to the patient's lower extremities. Radiographs by my personal interpretation as well as radiology are negative in the left leg and were positive in the right leg for a tibial tuberosity avulsion fracture with large joint effusion. Patient already ambulates on crutches, I informed the patient that he will need to be touchdown weightbearing on that leg. Patient already has some ambulatory issues at baseline, I feel that immobilizing him in a knee immobilizer may set him up for another fall in a worse injury, so he will be immobilized with a [place] wrap. Patient has seen Dr. Goldstein in the past, he will follow-up there for further orthopedic evaluation and management. ED Disposition - Plan for ED Patient: Disposition: Home or Assisted Living Diagnosis: Fracture of tibial tuberosity Instructions: ED Mechanical Fall, ED Fracture Lower Extremity Referrals: Jaylyn Mercedes DO [STAFF PHYSICIAN] - As soon as possible
[2020-02-03 02:30] VITALS: BP 159/80; PULSE 85; RESP 16; O2SAT 97
--- NOTE | 2020-02-03 04:32 | ED.RN ---
see down time charting from 0200 until discharge
== END 2020-02-03 02:30 | disposition home or self-care (01) ==
PROVIDERS: Emergency Provider Emergency Medicine; PCP Family Medicine
DX: S82.154A Nondisplaced fracture of right tibial tuberosity, initial encounter for closed fracture (principal); W18.39XA Other fall on same level, initial encounter; Y93.01 Activity, walking, marching and hiking; Y92.002 Bathroom of unspecified non-institutional (private) residence as the place of occurrence of the external cause; Y99.9 Unspecified external cause status
CPT/HCPCS: 73562; 73610; 73630

== ENCOUNTER 2020-02-03 16:27 | Observation (INO) | payer MEDICARE, SELFPAY ==
[2020-02-03 00:43] VITALS: BMI 24.7
[2020-02-03 16:28] VITALS: BP 146/85; BP 154/88; PULSE 102; RESP 17; TEMP 37.2; O2SAT 96; BMI 24.1
--- NOTE | 2020-02-03 16:36 | CT_ITS ---
CT of the right leg without contrast INDICATION: Fall, leg pain. Next COMPARISON: Knee x-ray 02/03/2020 TECHNIQUE: Multiple thin section axial CT images of the right leg were obtained from the knee to ankle without the administration of intravenous contrast and filmed in soft tissue and bone windows. Furthermore, multiple sagittal and coronal reconstructions were performed. Dose limiting techniques were utilized. The findings: Diffuse edema of the subcutaneous fat likely from passive congestion. No loculated fluid collection to suggest abscess or hematoma. Severe muscular atrophy of all compartments. Lipohemarthrosis of the knee joint consistent with an acute fracture. Screws and wire within the patella. Medial plate and screws within the distal metaphysis of the femur. Acute comminuted nondepressed fracture of the anterior aspect of the lateral tibial plateau with an oblique fracture line extending inferiorly into the proximal metaphysis of the tibia with anterior displacement of the tibial tubercle near the proximal edge of the intramedullary rishi within the tibia. Healed fracture the midshaft of the tibia. IMPRESSION: Acute comminuted nondepressed fracture of the anterior aspect of the lateral tibial plateau extending inferiorly into the metaphysis with avulsion of the tibial tubercle at the proximal margin of the intramedullary rishi within the tibia. Electronically Signed: Juan Stephenson MD at 17:38 EDT Tel , Service support , CT/Extremity Lower without Contra
--- NOTE | 2020-02-03 16:37 | ED.VIS.GEN ---
History of Present Illness Chief Complaint: Lower Extremity Injury Onset: Yesterday Narrative: 74-year-old male with past medical history of polio and hypertension presents with concern for right knee pain. Patient presented this emergency department early this morning with concern for fall. States she struck his bilateral knees on the ground. States he bent backwards and landed on his back. Denies any head injury. Patient uses crutches at baseline given a right-sided deficits secondary to polio as a child. States that the pain is significantly worse in his right knee and is having difficulty ambulating. Past Medical History - Allergies and Home Meds Allergies/Adverse Reactions: Allergies metronidazole [From Flagyl] Adverse Reaction (Verified 02/03/20 16:28) Nausea/Vom/Diarrhea VOMITING DECONGESTANTS Allergy (Uncoded 02/03/20 00:46) TACHYCARDIA Prior records reviewed: Yes Past Medical History: - - polio and HTN Surgical History: - - Right ankle surgery, spine surgery x 2, ORIF right knee. Smoking Status: Never smoker Alcohol: None Drugs: None - Family History Maternal Family History: Family History (Last Reviewed 02/03/20 @ 20:[address] Sedrick Mcadams, DO) Other CVA (cerebral vascular accident) Myocardial infarction Family History: Reports: No pertinent history Review of Systems General: Denies: Chills, Fever, Sweats Eyes: Denies: Visual changes - bilaterally, Diplopia ENT: Denies: Rhinorrhea, Sore throat Cardiovascular: Denies: Chest pain, Palpitations Respiratory: Denies: Dyspnea, Cough, Dyspnea on exertion Gastrointestinal: Denies: Abdominal pain, Nausea, Vomiting, Diarrhea, Melena, Hematochezia Genitourinary: Denies: Dysuria, Hematuria, Frequency Musculoskeletal: Reports: Arthralgias. Denies: Back pain, Extremity Pain Skin: Denies: Rash, Wounds Neurological: Denies: Headache, Weakness, Numbness Physical Exam Vital Signs/Narrative: Vital Signs Temp Pulse Resp BP Pulse Ox 02/03/20 16:28 99.0 F 102 H 17 154/88 H 96 General: Well nourished, Well developed, No Acute Distress Head: Normocephalic, Atraumatic Eyes: Perrl, EOMI ENT: Moist mucous membranes, No rhinorrhea Neck: Supple, Nontender Cardiovascular: Regular rate, Regular rhythm, No murmurs Respiratory: No distress, CTA bilaterally, Chest nontender Abdomen: Soft, Nontender, Nondistended, Normal bowel sounds Back: Nontender, Normal Inspection Extremities: - - Edema and overlying ecchymosis to the right knee. TTP. Extensor mechanism intact. Skin: Normal color, No rash Neurological: Alert, Oriented x3, Cranial nerves II-XII grossly intact, Normal Strength, Normal Sensation Psychological: Normal affect, Normal Mood Diagnostic/Tx/Re-eval Clinical Impression(s) from Imaging Studies Lower Extremity CT 02/03/20 16:36 Laboratory Data 02/03/20 02/03/20 02/03/20 18:25 18:25 18:45 WBC 8.4 RBC 4.36 L Hgb 13.4 Hct 40.5 MCV 92.9 MCH 30.7 MCHC 33.1 RDW Std Deviation 41.8 RDW Coeff of Larry 12.1 Plt Count 239 MPV 9.6 Immature Gran % (Auto) 0.400 Neut % (Auto) 76.8 H Lymph % (Auto) 9.9 L [place] % (Auto) 11.7 H Eos % (Auto) 0.7 Baso % (Auto) 0.5 Absolute Neuts (auto) 6.5 Absolute Lymphs (auto) 0.83 Nucleated RBC % 0 Sodium 140 Potassium 3.5 Chloride 105 Carbon Dioxide 32.0 Anion Gap 3 L BUN 17 Creatinine 0.62 L Estim Creat Clear Calc 58.08 Est GFR (MDRD) Af Amer 163 Est GFR (MDRD) Non-Af 135 BUN/Creatinine Ratio 27.3 H Glucose 105 Calcium 9.2 Vitamin D 25-Hydroxy 27.1 - Medical Decision Making Appears well and nontoxic. Vital signs within normal limits. Patient given subcutaneous morphine. CT was done of the right knee which shows comminuted nondepressed tibial plateau fracture with an oblique fracture that extends to the proximal portion of the tibial rishi. Patient is unable to ambulate. I did speak with orthopedic surgery who advised applying knee immobilizer. [place] this is not emergently surgical. Given the patient's inability to ambulate lab work was done which was within normal limits. Spoke with hospitalist and patient will be admitted for physical therapy and possible rehab placement. Patient stable at time of admission. Impression: 1. Acute right tibial plateau fracture 2. Inability to ambulate ED Disposition - Plan for ED Patient: Disposition: Acute Care [facility]
[2020-02-03] MEDS: Morphine 4 MG/ML Syringe IM (17:32)
[2020-02-03 18:36] LABS: Absolute Lymphocyte Count 0.83 X10^3/uL (0.83-4.51); Absolute Neutrophil Count 6.5 X10^3/uL (2.0-7.7); Basophil# 0.04 X10^3/uL; Basophil% 0.5 % (0-1); Eosinophil# 0.06 X10^3/uL; Eosinophils% 0.7 % (0-5); Hematocrit 40.5 % (40-54); Hemoglobin 13.4 g/dL (13.0-16.5); Lymphocyte # 0.83 X10^3/ul (4.0); Lymphocyte % 9.9 % (19-41); Mean Corp Hgb Conc 33.1 g/dL (32-36); Mean Corpuscular Hgb 30.7 pg (27.0-32.0); Mean Corpuscular Volume 92.9 fL (80-94); Mean Platelet Vol. 9.6 fl (6.2-12.0); Monocyte# 0.98 X10^3/uL; Monocyte% 11.7 % (0-10); NRBC Flagged by Analyzer 0 % (0-5); Neutrophil # 6.46 X10^3/uL (2.7-7.7); Neutrophil % 76.8 % (47-70); Platelet Count 239 K/mm3 (150-450); RBC Distribution Width CV 12.1 % (11.6-14.6); RBC Distribution Width SD 41.8 fl (35.1-43.9); Red Blood Count 4.36 M/mm3 (4.6-6.2); White Blood Count 8.4 K/mm3 (4.4-11.0)
[2020-02-03 19:02] LABS: Anion Gap 3 (5-15); BUN 17 mg/dL (7-18); BUN/Creat Ratio 27.3 RATIO (10-20); Calcium,Total 9.2 mg/dL (8.5-10.1); Chloride 105 mmol/L (98-107); Creatinine, Serum 0.62 mg/dL (0.70-1.30); EST Glomerular Filtration Rate 135 mL/min (>60); Est Glom Filt Rate - Afr Amer 163 mL/min (>60); Estimated Creatinine Clearance 58.08 ml/min; Glucose 105 mg/dL (74-106); Potassium 3.5 mmol/L (3.5-5.1); Sodium Level 140 mmol/L (136-145)
[2020-02-03 19:58] VITALS: BMI 24.1
[2020-02-03 20:01] VITALS: BP 144/63; PULSE 66; RESP 17; TEMP 37.1; O2SAT 96
--- NOTE | 2020-02-03 20:14 | PCM.HP.STD ---
Problem List (1) Fracture of right tibia and fibula Status: Acute (2) Knee effusion Status: Acute (3) Failure to thrive Status: Acute (4) Fracture of tibial tuberosity Status: Acute (5) Segmental and somatic dysfunction of pelvic region Status: Chronic (6) Scoliosis Status: Chronic Qualifiers: Scoliosis type: thoracogenic Spinal region: thoracolumbar Qualified Code(s): M41.35 - Thoracogenic scoliosis, thoracolumbar region (7) Segmental dysfunction of thoracic region Status: Chronic (8) Segmental and somatic dysfunction of lumbar region Status: Chronic (9) Right patella fracture Status: Resolved (10) BPH (benign prostatic hypertrophy) Status: Chronic (11) Osteoporosis Status: Chronic (12) Closed fracture of right distal femur Status: Resolved (13) Hyperlipemia Status: Chronic (14) Polio Status: Chronic (15) Closed intertrochanteric fracture of right hip Status: Resolved Qualifiers: Encounter type: initial encounter Fracture alignment: nondisplaced Qualified Code(s): S72.144A - Nondisplaced intertrochanteric fracture of right femur, initial encounter for closed fracture (16) Sinus tachycardia Status: Resolved (17) 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 Patient was in his bathroom and given three quarters, patient was unable to use his crutches and then lost balance and landed directly on both of his knees. Presented to the emergency room earlier today was concerning for a tibial tuberosity avulsion fracture with joint effusion. Patient was placed in immobilizer and sent home. At home, patient was unable to bear weight on either of his legs and presented again to the emergency room. Patient had a CAT scan of his right lower extremity that showed a right tibial plateau fracture. The case was discussed with Dr. Quinones, of orthopedics, who advised immobilization and stated that fracture would be nonoperable at this point in time. Patient does not feel that he is able to manage at home given the swelling in his knees and significant pain that he is experiencing. [] 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) Obstructive sleep apnea (Chronic) Allergies metronidazole [From Flagyl] Adverse Reaction (Verified 02/03/20 16:28) Nausea/Vom/Diarrhea VOMITING DECONGESTANTS Allergy (Uncoded 02/03/20 00:46) TACHYCARDIA Home Medications: Ambulatory Orders Medication Instructions Recorded oxycodone-acetaminophen 5 mg-325 1 tab PO TID 04/27/17 mg tablet Multivit-Min/FA/Lycopen/Lutein 1 ea PO DAILY 02/03/20 [Centrum Silver Men Tablet] Niacin [Niaspan] 500 mg PO DAILY 02/03/20 Nifedipine [Nifedipine ER] 30 mg PO QHS 02/03/20 Tamsulosin HCl [Flomax] 0.4 mg PO DAILY 02/03/20 Venlafaxine XR [Effexor Xr] 37.5 mg PO DAILY 02/03/20 Surgical History: Surgical History (Last Reviewed 02/03/20 @ 20:[address] Sedrick Mcadams DO) H/O spinal fusion Z98.1 Hip fracture, right S72.001A History of open reduction and internal fixation (ORIF) procedure Z98.890 right patella 07/22/15 Right tibial fracture S82.201A Surgical History: - - Right ankle surgery, spine surgery x 2, ORIF right knee. Psychiatric History: No pertinent psych hx Smoking Status: Never smoker Tobacco Use: Non-smoker Alcohol: None Drugs: None - *Family History Maternal Family History: Family History (Last Reviewed 02/03/20 @ 20:[address] Sedrick Mcadams DO) Other CVA (cerebral vascular accident) Myocardial infarction History Items: No pertinent history Review of Systems Constitutional: Denies: Anorexia, Fever Eyes: Denies: Blurred vision, Double vision HEENT: Denies: Head Aches, Sinus Congestion, Sinus Drainage Cardiovascular: Denies: Chest Pain, Palpitations Respiratory: Denies: Cough, Shortness of breath at rest, Sputum production Gastrointestinal: Denies: Abdominal Pain, Nausea, Vomiting Genitourinary: Denies: Dysuria Musculoskeletal: Reports: Joint swelling, Leg Pain Skin: Denies: Rash, Wounds Neurological: Reports: Balance problems, Focal weakness - Right-sided due to his polio Comment: All review of systems were negative except as mentioned above in the history of present illness and the other review of systems. VTE Information - Inpt Only VTE Present on Admission: No VTE Mechan Device Prophylaxis: SCD's VTE Pharm Prophylaxis ordered?: No Reason prophylaxis not ordered:: Medical Contraindication Patient Problems: Active and Suspected Problems (Last Reviewed 09/23/18 @ 15:14 by Samantha Garcia) Fracture of tibial tuberosity (Acute) Fracture of right tibia and fibula (Acute) Knee effusion (Acute) Failure to thrive (Acute) Fall (Acute) - Physical Exam Vitals/I&O's: Vital Signs Temp Pulse Resp BP Pulse Ox 37.1 C 66 17 144/63 H 96 02/03/20 20:01 02/03/20 20:01 02/03/20 20:01 02/03/20 20:01 02/03/20 20:01 Oxygen Delivery Method Room Air Weight: 65.8 kg Body Mass Index (BMI) 24.1 General: Alert, Cooperative, No apparent distress HEENT: Atraumatic, Normocephalic Oral: Moist Mucosa, No Gingival or Mucosal Lesions/ Ulcerations Neck: No Nodes, Thyroid Normal Size and Texture Lungs: Clear to auscultation, Normal air movement, No rhonchi, No wheeze, No rales Cardiovascular: Regular rate, Regular Rhythm, Normal S1, Normal S2, No murmurs Abdomen: Bowel Sounds Present, Soft, Non Tender, Non-Distended, No Hepato-splenomegaly Extremities: No edema, No Calf Tenderness Skin: No rashes, No breakdown Musculoskeletal: - - Patient has pronounced scoliosis with convexity to the right. Patient has bilateral knee effusions with cephalad extension on the right as compared to the left. Neurological: - - Weakness on the right lower extremity. Psych/Mental Status: Normal Affect, Appropriate Laboratory Results 02/03/20 18:25: WBC 8.4, RBC 4.36 L, Hgb 13.4, Hct 40.5, MCV 92.9, MCH 30.7, MCHC 33.1, RDW Std Deviation 41.8, RDW Coeff of Larry 12.1, Plt Count 239, MPV 9.6, Immature Gran % (Auto) 0.400, Neut % (Auto) 76.8 H, Lymph % (Auto) 9.9 L, [place] % (Auto) 11.7 H, Eos % (Auto) 0.7, Baso % (Auto) 0.5, Absolute Neuts (auto) 6.5, Absolute Lymphs (auto) 0.83, Nucleated RBC % 0 02/03/20 18:25: Sodium 140, Potassium 3.5, Chloride 105, Carbon Dioxide 32.0, Anion Gap 3 L, BUN 17, Creatinine 0.62 L, Estim Creat Clear Calc 58.08, Est GFR (MDRD) Af Amer 163, Est GFR (MDRD) Non-Af 135, BUN/Creatinine Ratio 27.3 H, Glucose 105, Calcium 9.2 Clinical Impression(s) from Imaging Studies Lower Extremity CT 02/03/20 16:36 IMPRESSION: Acute comminuted nondepressed fracture of the anterior aspect of the lateral tibial plateau extending inferiorly into the metaphysis with avulsion of the tibial tubercle at the proximal margin of the intramedullary rishi within the tibia. Assessment/Plan All Active Problems (Last Reviewed 09/23/18 @ 15:14 by Samantha Garcia) Fracture of tibial tuberosity (Acute) Fracture of right tibia and fibula (Acute) Knee effusion (Acute) Failure to thrive (Acute) Right patella fracture (Resolved) Closed fracture of right distal femur (Resolved) Closed intertrochanteric fracture of right hip (Resolved) Sinus tachycardia (Resolved) Fall (Acute) 1. Right tibial plateau fracture: Plan is for conservative management this time with immobilizer and partial weightbearing. Check a 25-hydroxy vitamin D level. 2. Bilateral knee effusions: Status post fall. Patient does have very pronounced knee effusions bilaterally. Will consult orthopedics for evaluation to see if patient could benefit from an arthrocentesis. 3. Failure to thrive: Patient just unable to bear weight due to the effusions on his knees and and certainly the tibial plateau fracture. Patient unable to care for himself at home. Patient be evaluated by physical and Occupational Therapy and Case management to facilitate potential transfer to nursing home facility or inpatient rehab facility. 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 5. VTE prophylaxis: Place patient on SCDs for now in case that patient does not require an arthrocentesis. OBSV E&M: [id number] Initial observation care L3
[2020-02-03 20:19] VITALS: BMI 23.3
[2020-02-03 20:23] VITALS: BP 132/74; PULSE 94; RESP 16; TEMP 36.9; O2SAT 99
[2020-02-03 20:52] LABS: Vitamin D,25 Hydroxy 27.1 ng/mL
[2020-02-03] MEDS: oxyCODONE 5 MG Tablet PO (22:39)
[2020-02-03 22:49] VITALS: BP 103/65; PULSE 94; RESP 18; TEMP 36.7; O2SAT 95
[2020-02-04] MEDS: oxyCODONE 5 MG Tablet PO ×3 (04:08→16:03)
[2020-02-04 04:13] VITALS: BP 114/89; PULSE 86; RESP 18; TEMP 36.7; O2SAT 100
[2020-02-04] MEDS: Venlafaxine XR 37.5 MG Capsule PO (09:09)
[2020-02-04] MEDS: Tamsulosin HCl 0.4 MG Capsule PO (09:09)
[2020-02-04] MEDS: Niacin SA 500 MG Tablet PO (09:09)
[2020-02-04] MEDS: Multivitamins,Ther W-Minerals Tablet 1 TABLET PO (09:09)
[2020-02-04] MEDS: Acetaminophen 325 MG Tablet 650 MG PO ×2 (09:54→16:03)
[2020-02-04 10:12] VITALS: BP 106/42; PULSE 99; RESP 14; TEMP 37.2; O2SAT 98
--- NOTE | 2020-02-04 15:14 | CON.PCM_ITS ---
Reason for Consult Date of Consultation: 02/04/20 Reason for Consultation: right tibial plateau fracture left knee effusion. History of Present Illness: The patient is a 74 year old M very pleasant gentleman with history of polio and right-sided weakness who has had multiple injuries to the right lower extremity including right distal femur right patella ORIF right tibia intramedullary rodding right hip pinning who has had inability to extend the right knee for years secondary to weakness who had a recent fall this past Tober 04/11/2020 landing onto both knees he did present to the emergency room where x-rays were taken which demonstrated tibial tubercle avulsion fracture minimally displaced and a nondisplaced lateral tibial plateau fracture. Patient did have significant pain and hemarthrosis. Patient also landed directly onto the left knee and sustained effusion of the left knee with pain. 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) Obstructive sleep apnea (Chronic) Allergies metronidazole [From Flagyl] Adverse Reaction (Verified 02/03/20 16:28) Nausea/Vom/Diarrhea VOMITING DECONGESTANTS Allergy (Uncoded 02/03/20 00:46) TACHYCARDIA Home Medications: Ambulatory Orders Medication Instructions Recorded oxycodone-acetaminophen 5 mg-325 1 tab PO TID 04/27/17 mg tablet Multivit-Min/FA/Lycopen/Lutein 1 ea PO DAILY 02/03/20 [Centrum Silver Men Tablet] Niacin [Niaspan] 500 mg PO DAILY 02/03/20 Nifedipine [Nifedipine ER] 30 mg PO QHS 02/03/20 Tamsulosin HCl [Flomax] 0.4 mg PO DAILY 02/03/20 Venlafaxine XR [Effexor Xr] 37.5 mg PO DAILY 02/03/20 Surgical History: Surgical History (Last Reviewed 02/03/20 @ 20:[address] Sedrick Mcadams, DO) H/O spinal fusion Z98.1 Hip fracture, right S72.001A History of open reduction and internal fixation (ORIF) procedure Z98.890 right patella 07/22/15 Right tibial fracture S82.201A Surgical History: - - Right ankle surgery, spine surgery x 2, ORIF right knee. Psychiatric History: No pertinent psych hx Smoking Status: Never smoker Tobacco Use: Non-smoker Alcohol: None Drugs: None - *Family History Maternal Family History: Family History (Last Reviewed 02/03/20 @ 20:[address] Sedrick Mcadams, DO) Other CVA (cerebral vascular accident) Myocardial infarction History Items: No pertinent history Patient Problems: Active and Suspected Problems (Last Reviewed 09/23/18 @ 15:14 by Samantha Garcia) Fracture of right tibia and fibula (Acute) Knee effusion (Acute) Failure to thrive (Acute) Fall (Acute) Objective: CT right tib-fib demonstrates nondisplaced lateral tibial plateau fracture and avulsion fracture of tibial tubercle, there is no patella karlie to suggest complete disruption of extensor mechanism - Physical Exam Vitals/I&O's: Vital Signs Temp Pulse Resp BP Pulse Ox 99.0 F 99 14 106/42 L 98 02/04/20 10:12 02/04/20 10:12 02/04/20 10:12 02/04/20 10:12 02/04/20 10:12 Oxygen Flow Rate (L/min) 2 Oxygen Delivery Method Room Air Weight: 140 lb Body Mass Index (BMI) 23.3 Intake and Output for Last 24 Hours 02/02/20 02/03/20 02/04/20 23:59 23:59 23:59 Intake Total 400 / 400 1200 / 1200 Output Total 100 / 100 200 / 200 Balance 300 / 300 1000 / 1000 Extremities: - - Compartments soft no open wounds large joint effusion both knees no erythema he is unable to extend the right knee which is unchanged chronically and he is able to the left without gross cruciate or collateral instability. Laboratory Results 02/03/20 18:25: WBC 8.4, RBC 4.36 L, Hgb 13.4, Hct 40.5, MCV 92.9, MCH 30.7, MCHC 33.1, RDW Std Deviation 41.8, RDW Coeff of Larry 12.1, Plt Count 239, MPV 9.6, Immature Gran % (Auto) 0.400, Neut % (Auto) 76.8 H, Lymph % (Auto) 9.9 L, [place] % (Auto) 11.7 H, Eos % (Auto) 0.7, Baso % (Auto) 0.5, Absolute Neuts (auto) 6.5, Absolute Lymphs (auto) 0.83, Nucleated RBC % 0 02/03/20 18:25: Sodium 140, Potassium 3.5, Chloride 105, Carbon Dioxide 32.0, Anion Gap 3 L, BUN 17, Creatinine 0.62 L, Estim Creat Clear Calc 58.08, Est GFR (MDRD) Af Amer 163, Est GFR (MDRD) Non-Af 135, BUN/Creatinine Ratio 27.3 H, Gluc ose 105, Calcium 9.2 02/03/20 18:45: Vitamin D 25-Hydroxy 27.1 Current Medications Acetaminophen (Acetaminophen 325 Mg Tablet) 650 mg PO Q6H PRN PRN PRN Reason: Pain Score 1-10/Temp > 100.7 F Last Admin: 02/04/20 09:54 Dose: 650 mg Documented by: Ketorolac Tromethamine (Ketorolac 15 Mg/Ml Vial) 15 mg IV Q8H PRN PRN PRN Reason: Pain 1-10 Stop: 02/08/20 20:17 Multivitamins/Minerals (Multivitamins,Ther W-Minerals Tablet) 1 tablet PO DAILY@0800 [facility] Last Admin: 02/04/20 09:09 Dose: 1 tablet Documented by: Niacin (Niacin Sa 500 Mg Tablet) 500 mg PO DAILY@0800 [facility] Last Admin: 02/04/20 09:09 Dose: 500 mg Documented by: Nifedipine (Nifedipine 30 Mg Tablet) 30 mg PO QHS [facility] Last Admin: 02/03/20 22:53 Dose: Not Given Documented by: Ondansetron HCl (Ondansetron 4 Mg/2 Ml Vial) 4 mg IV Q8H PRN PRN PRN Reason: NAUSEA/VOMITING Oxycodone HCl (Oxycodone 5 Mg Tablet) 5 mg PO Q4H PRN PRN PRN Reason: Pain Score 4-5 Last Admin: 02/04/20 09:54 Dose: 5 mg Documented by: Oxycodone HCl (Oxycodone 5 Mg Tablet) 10 mg PO Q4H PRN PRN PRN Reason: Pain Score 6-10 Sodium Chloride (0.9% Saline Lock 10 Ml Syringe) 10 - 40 ml IV UD PRN PRN Reason: SALINE FLUSH Tamsulosin HCl (Tamsulosin Hcl 0.4 Mg Capsule) 0.4 mg PO DAILY@0830 [facility] Last Admin: 02/04/20 09:09 Dose: 0.4 mg Documented by: Venlafaxine HCl (Venlafaxine Xr 37.5 Mg Capsule) 37.5 mg PO DAILY [facility] Last Admin: 02/04/20 09:09 Dose: 37.5 mg Documented by: Assessment/Plan All Active Problems (Last Reviewed 09/23/18 @ 15:14 by Samantha Garcia) Fracture of right tibia and fibula (Acute) Knee effusion (Acute) Failure to thrive (Acute) Right patella fracture (Resolved) Closed fracture of right distal femur (Resolved) Closed intertrochanteric fracture of right hip (Resolved) Sinus tachycardia (Resolved) Fall (Acute) Arthrocentesis of right knee pulled 60 cc of rayn blood aspiration with a little pain Jessee wrap applied patient is to be in knee immobilizer without knee flexion for approximately 4 weeks he may remove the immobilizer while the knee is extended and supported he should ice and elevate the extremity he should attempt as best as possible to be nonweightbearing. Arthrocentesis performed of left knee 60 cc of ryan blood. Discussed this could be secondary to occult fracture versus blood vessel rupture from fall versus ACL or meniscal pathology he is moving the knee well and pain is improved. We will see how patient responds over next 2 weeks and depending on his progress may consider MRI of left knee. fu 2 wks
--- NOTE | 2020-02-04 15:26 | DCINST_ITS ---
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) Fall (Acute) Obstructive sleep apnea (Chronic) You will use the following diet at home:: No restrictions Your food should be the consistency of: Regular Your liquids should be the consistency of: Regular/Thin Discharge Activity: Use Crutches Weight Bearing Status: Weight bearing as tolerated Additional Instructions: Use right knee immobilizer Allergies/Adverse Reactions: Allergies metronidazole [From Flagyl] Adverse Reaction (Verified 02/03/20 16:28) Nausea/Vom/Diarrhea VOMITING [employer]GEST[employer]S Allergy (Uncoded 02/03/20 00:46) TACHYCARDIA Medications to take at Discharge oxycodone-acetaminophen 5 mg-325 mg tablet 1 tab PO TID 04/27/17 Multivit-Min/FA/Lycopen/Lutein [Centrum Silver Men Tablet] 1 ea PO DAILY 02/03/20 Niacin [Niaspan] 500 mg PO DAILY 02/03/20 Nifedipine [Nifedipine ER] 30 mg PO QHS 02/03/20 Tamsulosin HCl [Flomax] 0.4 mg PO DAILY 02/03/20 Venlafaxine XR [Effexor Xr] 37.5 mg PO DAILY 02/03/20 Oxycodone [Oxyir] 10 - 15 mg PO Q4H PRN PRN #40 tablet 02/04/20 The following prescriptions were given: Oxycodone [Oxyir] 10 - 15 mg PO Q4H PRN PRN #40 tablet PRN Reason: Pain Score 6-10 Transmission Status: Received by [facility]AN[facility] Primary Care Physician: Luis Medina MD [Primary Care Provider] - Please follow up with your Primary Care Physician in: as scheduled Test Results: Test results from this visit will be discussed in further detail at your follow- up appointment, if applicable. Please Follow Up With: Burt Quinones DO When: in 2 weeks
[2020-02-04 15:27] VITALS: BP 113/54; PULSE 103; RESP 16; TEMP 36.8; O2SAT 98
--- NOTE | 2020-02-06 07:08 | DS.PCM_ITS ---
Discharge Date and Diagnosis - Problem List Patient Problems: Active and Suspected Problems (Last Reviewed 09/23/18 @ 15:14 by Samantha Garcia) Fracture of right tibia and fibula (Acute) Knee effusion (Acute) Failure to thrive (Acute) Fall (Acute) Date of Admission: 02/03/20 Date of Discharge: 02/04/20 - Primary Discharge Diagnosis Acute Problems: Active Problems (Last Reviewed 09/23/18 @ 15:14 by Samantha Garcia) Fracture of right tibia (Acute) Knee effusion (Acute)-bilateral, traumatic in nature Hyperlipidemia Obstructive sleep apnea - Secondary Discharge Diagnosis Chronic Problems: Chronic Problems (Last Reviewed 09/23/18 @ 15:14 by Samantha Garcia) Segmental and somatic dysfunction of pelvic region (Chronic) Scoliosis (Chronic) Segmental dysfunction of thoracic region (Chronic) Segmental and somatic dysfunction of lumbar region (Chronic) BPH (benign prostatic hypertrophy) (Chronic) Osteoporosis (Chronic) Hyperlipemia (Chronic) Polio (Chronic) 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 He had been seen in the emergency room earlier that day and discharged home but was unable to ambulate and came back in for reevaluation. CT scan was done of the right knee which showed a tibial plateau fracture with an oblique fracture that extends into the proximal portion of the tibial rishi. Orthopedic surgery was contacted and agreed to see the patient in consultation, [facility] he was seen by orthopedic surgery who performed bilateral knee aspirations with removal of grossly bloody fluid. Patient was able to ambulate with physical therapy using crutches and a walker, physical therapy recommended a walker but the patient did not want to have a walker [id number] stated that he had an old walker that he could use if needed and he would rather use his crutches as he was used to using crutches due to a past history of polio. On 02/04/2020, patient was seen and examined: On examination he appeared in good health and spirits. Vital signs as documented. Skin warm and dry and without overt rashes. Neck without JVD, neck was supple, trachea midline, thyroid was normal. Lungs clear bilaterally, normal air movement was noted. Heart exam notable for regular rhythm, normal sounds and absence of murmurs, rubs or gallops. Abdomen unremarkable and without evidence of organomegaly, masses, or abdominal aortic enlargement. Bowel sounds are present, abdomen is not distended. Extremities nonedematous, no cyanosis was noted, no clubbing was noted. There are noted to be bilateral knee effusions which are moderate in nature, the his knees are tender to palpation, he has a knee immobilizer on the right knee. Neuro: Cranial nerves II through XII are grossly intact, no focal motor deficits were noted, sensation to light touch and pinprick intact, motor exam 5/5 throughout. Psych: Patient is alert and oriented x3, he does not appear anxious or depressed, he does not appear agitated. Patient was discharged home on 02/04/2020 in stable condition. Patient Problems: Active and Suspected Problems (Last Reviewed 09/23/18 @ 15:14 by Samantha Garcia) Fracture of right tibia and fibula (Acute) Knee effusion (Acute) Failure to thrive (Acute) Fall (Acute) - Physical Exam Vitals/I&O's: Vital Signs Temp Pulse Resp BP Pulse Ox 98.2 F 103 H 16 113/54 L 98 02/04/20 15:27 02/04/20 15:27 02/04/20 15:27 02/04/20 15:27 02/04/20 15:27 Oxygen Flow Rate (L/min) 2 Oxygen Delivery Method Room Air Weight: 63.503 kg Body Mass Index (BMI) 23.3 Intake and Output for Last 24 Hours 02/04/20 02/05/20 02/06/20 23:59 23:59 23:59 Intake Total 1200 / 1200 Output Total 200 / 200 Balance 1000 / 1000 Discharge Activity: Use Crutches Weight Bearing Status: Weight bearing as tolerated Home Medications: Medications to take at Discharge oxycodone-acetaminophen 5 mg-325 mg tablet 1 tab PO TID 04/27/17 Multivit-Min/FA/Lycopen/Lutein [Centrum Silver Men Tablet] 1 ea PO DAILY 02/03/20 Niacin [Niaspan] 500 mg PO DAILY 02/03/20 Nifedipine [Nifedipine ER] 30 mg PO QHS 02/03/20 Tamsulosin HCl [Flomax] 0.4 mg PO DAILY 02/03/20 Venlafaxine XR [Effexor Xr] 37.5 mg PO DAILY 02/03/20 Oxycodone [Oxyir] 10 - 15 mg PO Q4H PRN PRN #40 tab 02/04/20 Following Prescriptions Were Given to Patient: Oxycodone [Oxyir] 10 - 15 mg PO Q4H PRN PRN #40 tab PRN Reason: Pain Score 6-10 Transmission Status: Received by [facility]1952 [facility] Primary Care Physician: Luis Medina MD [Primary Care Provider] - Please follow up with your Primary Care Physician in: as scheduled Please Follow Up With: Burt Quinones DO When: in 2 weeks Disposition: Home Minutes spent on discharge:: 30 Patient Condition:: Stable Medical Necessity - Tobacco Use Smoking Status: Never smoker Tobacco Use: Non-smoker Meaningful Use Info Meaningful Use Diagnoses (Choose all that apply): None applicable OBSV E&M: 30915 Observation care discharge
== END 2020-02-04 16:25 | disposition home or self-care (01) ==
LOC: ED 17:25 → MS3 21:40
PROVIDERS: Emergency Provider Emergency Medicine; PCP Family Medicine; Visit Provider Internal Medicine
CPT/HCPCS: 73562; 73610; 73630; 73700; 80048; 82306; 85025; 96372; 97162; 97166; 99218; 99283; 99284; A4216; G0378

== ENCOUNTER → 2020-03-02 11:47 | Outpatient (CLI) | payer MEDICARE, SELFPAY ==
[2020-03-02 13:16] LABS: PSA,Total- Diagnostic < 0.01 ng/mL (0.0-4.0)
== END ==
PROVIDERS: PCP Family Medicine; Referring Provider Urology; Visit Provider Urology
DX: C61 Malignant neoplasm of prostate (principal)
CPT/HCPCS: 36415; 84153

== ENCOUNTER → 2020-06-15 14:18 | Outpatient (CLI) | payer MEDICARE, SELFPAY ==
[2020-06-15 15:12] LABS: PSA,Total- Diagnostic < 0.01 ng/mL (0.0-4.0)
== END ==
PROVIDERS: PCP Family Medicine; Referring Provider Urology; Visit Provider Urology
DX: C61 Malignant neoplasm of prostate (principal)
CPT/HCPCS: 36415; 84153

== ENCOUNTER 2020-06-21 17:05 | Outpatient (RCR) | payer MEDICARE, SELFPAY | END 2020-06-21 23:59 | LOC: IMMUN 17:05 | PROVIDERS: PCP Family Medicine; Visit Provider Family Medicine | DX: Z23 Encounter for immunization (principal) | CPT/HCPCS: 0011A; 0012A ==

== ENCOUNTER → 2020-12-16 10:18 | Outpatient (CLI) | payer MEDICARE, SELFPAY ==
[2020-12-16 11:04] LABS: Absolute Lymphocyte Count 0.81 X10^3/uL (0.83-4.51); Absolute Neutrophil Count 3.7 X10^3/uL (2.0-7.7); Basophil# 0.05 X10^3/uL; Eosinophils% 1.9 % (0-5); Hematocrit 42.6 % (40-54); Hemoglobin 14.5 g/dL (13.0-16.5); Lymphocyte # 0.81 X10^3/ul (0.83-4.51); Lymphocyte % 15.4 % (19-41); Mean Corpuscular Volume 91.2 fL (80-94); Mean Platelet Vol. 9.9 fl (6.2-12.0); Monocyte# 0.54 X10^3/uL; Monocyte% 10.3 % (0-10); NRBC Flagged by Analyzer 0 % (0-5); Neutrophil # 3.73 X10^3/uL (2.7-7.7); Platelet Count 284 K/mm3 (150-450); RBC Distribution Width CV 12.5 % (11.6-14.6); RBC Distribution Width SD 41.7 fl (35.1-43.9); Red Blood Count 4.67 M/mm3 (4.6-6.2); White Blood Count 5.3 K/mm3 (4.4-11.0)
[2020-12-16 11:31] LABS: ALB/GLOB Ratio 1.3 RATIO (0.9-2.4); AST(SGOT) 19 U/L (15-37); Alanine Aminotransfer ALT/SGPT 36 U/L (16-61); Albumin, Serum 3.9 g/dL (3.2-5.0); Alkaline Phosphatase 77 U/L (45-117); Anion Gap 5 (5-15); BUN 16 mg/dL (7-18); Calcium,Total 8.9 mg/dL (8.5-10.1); Chloride 104 mmol/L (98-107); Cholesterol 219 mg/dL (200); Creatinine, Serum 0.53 mg/dL (0.70-1.30); EST Glomerular Filtration Rate 161 mL/min (>60); Est Glom Filt Rate - Afr Amer 194 mL/min (>60); Globulin 3.1 g/dL (2.2-4.2); Glucose 96 mg/dL (74-106); High Density Lipoprotein 72 mg/dL; PSA,Total- Diagnostic < 0.01 ng/mL (0.0-4.0); Potassium 3.7 mmol/L (3.5-5.1); Sodium Level 139 mmol/L (136-145); Triglycerides 70 mg/dL; Very Low Density Lipoprotein 14 mg/dL (5-40)
== END ==
PROVIDERS: PCP Family Medicine; Referring Provider Urology; Visit Provider Urology
DX: I10 Essential (primary) hypertension (principal); C61 Malignant neoplasm of prostate
CPT/HCPCS: 36415; 80053; 80061; 84153; 85025

== ENCOUNTER → 2020-12-23 15:04 | Outpatient (CLI) | payer MEDICARE, SELFPAY | PROVIDERS: PCP Family Medicine; Referring Provider Urology; Visit Provider Urology | DX: C61 Malignant neoplasm of prostate (principal) | CPT/HCPCS: 36415; 84403 ==

== ENCOUNTER 2021-01-29 18:18 | Emergency (ER) | payer MEDICARE, SELFPAY ==
[2021-01-29 18:19] VITALS: BP 167/108; PULSE 80; RESP 16; TEMP 36.2; O2SAT 98; BMI 25.4
--- NOTE | 2021-01-29 18:35 | RAD_ITS ---
STUDY: X-RAY - RIGHT KNEE REASON FOR EXAM: Male, 75 years old. injury, pain TECHNIQUE: 4 view(s) of the knee. COMPARISON: 05/03/2020 FINDINGS: Diffuse osteopenia. Operative changes of the distal femur with hardware. Medullary rishi and proximal fixation screws of the proximal tibia. Fusion wires and screws of the patella. Fracture of the anterior proximal tibia at the patellar tendon insertion is stable. Normal proximal tibiofibular articulation. Normal medial femorotibial compartment. Normal lateral femorotibial compartment. Normal patellofemoral articulation. There is a soft tissue prominence in the suprapatellar region suggesting a small volume joint effusion. Diffuse soft tissue swelling. RAD/Knee 4 or More Views IMPRESSION: 1. Small joint effusion. Diffuse soft tissue swelling. 2. No destructive bony process. Osseous structures are not significantly changed. Electronically Signed: Kamaljit Jaimes MD ([place]) at 19:22 EDT , Service support ,
--- NOTE | 2021-01-29 20:08 | EDS_ITS ---
HPI History of Present Illness Chief Complaint: Lower Extremity Injury Informant: patient Narrative Narrative: Patient had a mechanical trip and fall today. He landed on his knees. His right one has some soreness. 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 This causes some certain weakness. He uses crutches. Falling is not an uncommon occurrence. This was not syncope. No other injury. He did not hit his head. No blood thinners. Nothing specifically makes better or worse. He has had multiple surgeries around that knee and leg and is concerned is fractures around those surgical implants. [facility] Medical History Sleep apnea Tonsillectomy planned Home Medications oxycodone-acetaminophen 5 mg-325 mg tablet 1 tab PO TID 04/27/17 [History Last Taken 02/03/20 15:00] bpzbgzqy-kya-FY-lycopen-lutein 1 ea PO DAILY 02/03/20 [History Last Taken 02/03/20] niacin 500 mg PO DAILY 02/03/20 [History Last Taken 02/03/20] nifedipine 30 mg PO QHS 02/03/20 [History Last Taken 02/02/20] tamsulosin 0.4 mg PO DAILY 02/03/20 [History Last Taken 02/03/20] venlafaxine 37.5 mg PO DAILY 02/03/20 [History Last Taken 02/03/20] calcium carbonate-vitamin D3 [Calcium 500 + D (D3)] 1 tab PO DAILY 01/29/21 [History Last Taken Unknown] Allergy/AdvReac Type Severity Reaction Status Date / Time metronidazole [From Flagyl] AdvReac Nausea/Vom/ Verified 01/29/21 18:22 Diarrhea DECONGESTANTS Allergy TACHYCARDIA Uncoded 01/29/21 18:22 Family History Other CVA (cerebral vascular accident) Myocardial infarction Surgical History H/O adenoidectomy H/O spinal fusion Hip fracture, right History of open reduction and internal fixation (ORIF) procedure History of uvulectomy Right tibial fracture Social History Smoking Status: Never smoker ROS ROS ED Constitutional Constitutional ED: Denies chills or fever(s) Respiratory/Chest Respiratory/Chest: Denies dyspnea Gastrointestinal Gastrointestinal: Denies nausea or vomiting Musculoskeletal Musculoskeletal: Reports other Details: See history of present illness ; Denies back pain or neck pain Integumentary Denies abscess or rash Neurologic Neurologic: Reports other Details: Patient has some chronic weakness but no new changes. ; Denies paresthesias or weakness Hematologic/Lymphatic Hematologic/Lymphatic: Denies easy bleeding or easy bruising EXAM Physical Exam Const Vital Signs: 01/29/21 18:19 Temperature 97.2 F L Temperature Source Oral Pulse Rate 80 Respiratory Rate 16 Blood Pressure 167/108 H Blood Pressure Mean 127 Pulse Ox 98 Oxygen Delivery Method Room Air Positive well nourished and well developed General Appearance ED: well developed and NAD HEENT normocephalic and atraumatic Resp normal respiratory effort Back/Spine Cervical Spine: Negative for cervical spine tenderness Thoracic Spine / Upper Back: Negative for thoracic spinal tenderness Lumbar Spine / Lower Back: Negative for lumbar spinal tenderness Extremity Extremity Narrative: Patient has chronic deformities. He has signs of prior surgery. Left knee has a slight contusion and slight effusion but is not painful. Right knee has a very slight can contusion and effusion. There is some mild nonspecific tenderness. No deformities seen. Neuro oriented x3 Sensorium / Orientation: alert Psych mental status grossly normal Skin Skin Narrative: Contusion left knee. MDM MDM MDM Narrative Medical decision making narrative: 4 view x-ray of the knee looked at by me and read by radiology shows no sign of acute fracture. Patient is very familiar with ice rest. He would like to go home. I think this is a reasonable option. Radiography Diagnostic Testing: Clinical Impression(s) from Imaging Studies Knee X-Ray 01/29/21 18:35 IMPRESSION: 1. Small joint effusion. Diffuse soft tissue swelling. 2. No destructive bony process. Osseous structures are not significantly changed. Electronically Signed: Kamaljit Jaimes MD ([place]) at 19:22 EDT , Service support , Discharge Plan Triage Chief Complaint: Lower Extremity Injury ED Provider: Mirza Carmichael Dx/Rx/DC Orders Clinical Impression: Fall, Contusion of right knee Instructions: ED Contusion, Lower Extremity Prescriptions: No Action oxycodone-acetaminophen 5-325 mg tablet 1 tab PO TID RF: 0 venlafaxine 37.5 MG capsule 37.5 mg PO DAILY RF: 0 tamsulosin 0.4 MG capsule 0.4 mg PO DAILY RF: 0 nifedipine 30 MG tablet extended release 24hr 30 mg PO QHS RF: 0 niacin 500 MG tablet extended release 24 hr 500 mg PO DAILY RF: 0 iqsjobax-ycn-DN-lycopen-lutein 1 EACH tablet 1 ea PO DAILY RF: 0 calcium carbonate-vitamin D3 [Calcium 500 + D (D3)] 500 mg(1,250mg) -125 unit Tablet 1 tab PO DAILY RF: 0 Primary Care Provider: Luis Medina Referrals: Luis Medina MD [Primary Care Provider] - 3-5 Days Disposition Disposition: Home, Self Care
== END 2021-01-29 20:21 | disposition home or self-care (01) ==
PROVIDERS: Emergency Provider Emergency Medicine; PCP Family Medicine
DX: S80.01XA Contusion of right knee, initial encounter (principal); W01.0XXA Fall on same level from slipping, tripping and stumbling without subsequent striking against object, initial encounter; Y93.9 Activity, unspecified; Y92.9 Unspecified place or not applicable; Y99.9 Unspecified external cause status; R29.6 Repeated falls
CPT/HCPCS: 73564; 99284

== ENCOUNTER 2021-01-30 01:02 | Emergency (ER) | payer MEDICARE, SELFPAY ==
[2021-01-30 01:02] VITALS: BP 126/63; PULSE 99; RESP 18; TEMP 37.1; O2SAT 93; BMI 24.9
--- NOTE | 2021-01-30 02:15 | RAD_ITS ---
EXAM: XR LEFT KNEE COMPLETE, 4 OR MORE VIEWS : 1945 CLINICAL INDICATION: pain, fall TECHNIQUE: Four or more views of the left knee. This report was created using [employer] report generation technology. COMPARISON: None. FINDINGS: BONES/JOINTS: Unremarkable. No acute fracture. No subluxation. Normal alignment. Preservation of the joint space. No sclerotic or destructive changes observed. SOFT TISSUES: Prepatellar soft tissue swelling. No radiopaque foreign body. RAD/Knee 4 or More Views IMPRESSION: Prepatellar soft tissue swelling. No fractures. at 0301 Reported and signed by: Julian Lockwood MD Electronically Signed: Julian Lockwood MD at 3:01 EDT Tel , Service support ,
[2021-01-30] MEDS: Morphine 4 MG/ML Syringe 6 MG IM (02:20)
[2021-01-30 04:15] VITALS: BP 113/67
[2021-01-30 04:22] LABS: Absolute Lymphocyte Count 0.52 X10^3/uL (0.83-4.51); Absolute Neutrophil Count 9.6 X10^3/uL (2.0-7.7); Basophil# 0.06 X10^3/uL; Basophil% 0.5 % (0-1); Eosinophil# 0.02 X10^3/uL; Eosinophils% 0.2 % (0-5); Hematocrit 42.2 % (40-54); Hemoglobin 13.8 g/dL (13.0-16.5); Lymphocyte # 0.52 X10^3/ul (0.83-4.51); Lymphocyte % 4.7 % (19-41); Mean Corp Hgb Conc 32.7 g/dL (32-36); Mean Corpuscular Hgb 30.4 pg (27.0-32.0); Mean Platelet Vol. 9.2 fl (6.2-12.0); Monocyte# 0.79 X10^3/uL; Monocyte% 7.2 % (0-10); NRBC Flagged by Analyzer 0 % (0-5); Neutrophil # 9.59 X10^3/uL (2.7-7.7); Neutrophil % 87.1 % (47-70); POSITIVE DIFFERENTIAL YES; Platelet Count 261 K/mm3 (150-450); RBC Distribution Width CV 12.4 % (11.6-14.6); RBC Distribution Width SD 42.5 fl (35.1-43.9); Red Blood Count 4.54 M/mm3 (4.6-6.2)
[2021-01-30] MEDS: HYDROmorphone 0.5 MG/0.5 ML SYRINGE IV ×2 (04:23→05:15)
[2021-01-30 04:38] LABS: Anion Gap 5 (5-15); BUN 17 mg/dL (7-18); BUN/Creat Ratio 23.5 RATIO (10-20); Calcium,Total 9.4 mg/dL (8.5-10.1); Chloride 100 mmol/L (98-107); Creatinine, Serum 0.72 mg/dL (0.70-1.30); EST Glomerular Filtration Rate 113 mL/min (>60); Est Glom Filt Rate - Afr Amer 137 mL/min (>60); Estimated Creatinine Clearance 57.23 ml/min; Glucose 159 mg/dL (74-106); Potassium 3.7 mmol/L (3.5-5.1); Sodium Level 138 mmol/L (136-145)
[2021-01-30 05:16] VITALS: RESP 16
--- NOTE | 2021-01-30 05:16 | EDS_ITS ---
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 He has associated swelling of his left knee. He denies any numbness or tingling. Patient was seen and evaluated for mechanical fall earlier today. He states he was at the grocery store when he fell and landed on both his knees. He was complaining of more pain in his right knee at that time. When he got home he started having increased pain in the left knee and is worried that he missed fracture. He took his home Percocet with no relief of his pain so he came back to the emergency room. [facility] Medical History Sleep apnea Tonsillectomy planned Home Medications oxycodone-acetaminophen 5 mg-325 mg tablet 1 tab PO TID 04/27/17 [History Last Taken 02/03/20 15:00] wkmhldnb-pkb-IW-lycopen-lutein 1 ea PO DAILY 02/03/20 [History Last Taken 02/03/20] niacin 500 mg PO DAILY 02/03/20 [History Last Taken 02/03/20] nifedipine 30 mg PO QHS 02/03/20 [History Last Taken 02/02/20] tamsulosin 0.4 mg PO DAILY 02/03/20 [History Last Taken 02/03/20] venlafaxine 37.5 mg PO DAILY 02/03/20 [History Last Taken 02/03/20] calcium carbonate-vitamin D3 [Calcium 500 + D (D3)] 1 tab PO DAILY 01/29/21 [History Last Taken Unknown] Allergy/AdvReac Type Severity Reaction Status Date / Time metronidazole [From Flagyl] AdvReac Nausea/Vom/ Verified 01/30/21 01:05 Diarrhea DECONGESTANTS Allergy TACHYCARDIA Uncoded 01/29/21 18:22 Family History Other CVA (cerebral vascular accident) Myocardial infarction Surgical History H/O adenoidectomy H/O spinal fusion Hip fracture, right History of open reduction and internal fixation (ORIF) procedure History of uvulectomy Right tibial fracture Social History Smoking Status: Never smoker ROS ROS ED Constitutional Constitutional ED: Reports frequent falls; Denies fever(s) Eyes Eyes: Denies change in vision or eye pain ENT ENT ED: Denies dental pain, mouth lesions or nasal trauma Cardiovascular Cardiovascular: Denies chest pain or syncope Respiratory/Chest Respiratory/Chest: Denies cough or dyspnea Gastrointestinal Gastrointestinal: Denies abdominal pain or nausea Genitourinary Genitourinary ED: Denies dysuria or hematuria Musculoskeletal Musculoskeletal: Reports other Details: Bilateral knee pain, left worse than right ; Denies back pain Integumentary Reports Abrasions; Denies wounds Neurologic Neurologic: Denies headache(s), paresthesias or weakness Psychiatric Psychiatric: Denies anxiety or depression Hematologic/Lymphatic Hematologic/Lymphatic: Denies easy bleeding or easy bruising EXAM Physical Exam Const Vital Signs: 01/30/21 01:02 01/30/21 04:15 Temperature 98.7 F Temperature Source Oral Pulse Rate 99 Respiratory Rate 18 Blood Pressure 126/63 H 113/67 Blood Pressure Mean 84 82 Pulse Ox 93 Oxygen Delivery Method Room Air Positive well nourished and well developed General Appearance ED: well developed HEENT normocephalic and atraumatic Chest Wall inspection of chest normal Resp normal respiratory effort and clear to auscultation bilaterally Cardio regular rate, regular rhythm and no murmurs GI non-tender Palpation: soft Extremity Extremity Narrative: Patient is atrophy of his lower extremity muscles likely secondary to post polio syndrome. Bilateral knee swelling present. He has prepatellar edema noted of the left knee. Able to straight raise both legs off the bed. No obvious deformity. 2+ bilateral DP pulses. No palpable cords of the calf. Neuro oriented x3 Sensorium / Orientation: alert Skin Skin Narrative: To the left knee. Ecchymosis of the right proximal tibia area present. Rashes: no rashes MDM MDM MDM Narrative Medical decision making narrative: Patient evaluated for worsening left knee pain. He appears nontoxic in no acute distress. Hemodynamically he is stable. He is neuro vastly intact. Do not suspect any patellar tendon or quadricep tendon injury. X-ray obtained of the left knee does not show any acute fracture. He does have prepatellar soft tissue swelling which is consistent with his physical exam. Patient initially given 6 mg IV morphine with no relief of his pain. He is then given 0.5 mg IV Dilaudid. He does have improvement of pain with this. He is given a final dose of IV Dilaudid and will be discharged home with his regular pain medication to take. He is also given IV Toradol. Patient does have normal kidney function. Patient feels comfortable going home and trying home pain medication again. At this time he does not feel that he needs admission for intractable pain. He is counseled if his pain worsens and he cannot get it under control again he might need to be admitted for pain control. Patient is counseled on signs and symptoms requiring return to the emergency room. Patient verbalizes agreement and understand this plan. Patient discharged home in stable and improved condition. Lab Data Labs: Laboratory Results - last 24 hr 01/30/21 04:20 Sodium 138 Potassium 3.7 Chloride 100 Carbon Dioxide 33.0 H Anion Gap 5 BUN 17 Creatinine 0.72 Estim Creat Clear Calc 57.23 Est GFR (MDRD) Af Amer 137 Est GFR (MDRD) Non-Af 113 BUN/Creatinine Ratio 23.5 H Glucose 159 H Calcium 9.4 Radiography Diagnostic Testing: Clinical Impression(s) from Imaging Studies Knee X-Ray 01/30/21 02:15 IMPRESSION: Prepatellar soft tissue swelling. No fractures. at 0301 Reported and signed by: Julian Lockwood MD Electronically Signed: Julian Lockwood MD at 3:01 EDT Tel , Service support , Discharge Plan Triage Chief Complaint: Lower Extremity Injury ED Provider: Donna Zimmerman Dx/Rx/DC Orders Clinical Impression: Contusion of knee, left, Prepatellar effusion of left knee Instructions: ED Contusion, Lower Extremity Prescriptions: No Action oxycodone-acetaminophen 5-325 mg tablet 1 tab PO TID RF: 0 venlafaxine 37.5 MG capsule 37.5 mg PO DAILY RF: 0 tamsulosin 0.4 MG capsule 0.4 mg PO DAILY RF: 0 nifedipine 30 MG tablet extended release 24hr 30 mg PO QHS RF: 0 niacin 500 MG tablet extended release 24 hr 500 mg PO DAILY RF: 0 smquhihd-rml-WZ-lycopen-lutein 1 EACH tablet 1 ea PO DAILY RF: 0 calcium carbonate-vitamin D3 [Calcium 500 + D (D3)] 500 mg(1,250mg) -125 unit Tablet 1 tab PO DAILY RF: 0 Primary Care Provider: Luis Medina Referrals: Luis Medina MD [Primary Care Provider] - Burt Quinones DO [STAFF PHYSICIAN] - Activity Restrictions/Additional Instructions: Take ibuprofen in addition to your home Percocet. Call your primary care doctor to see if it is okay for you to increase your Percocet temporarily for the next few days to help with your pain. Do not take more than 4 within 24 hours. Disposition Disposition: Home, Self Care
[2021-01-30 05:33] LABS: Differential Indicated SCAN CRITERIA MET
[2021-01-30] MEDS: Ibuprofen 600 MG Tablet PO (05:34)
== END 2021-01-30 05:35 | disposition home or self-care (01) ==
PROVIDERS: Emergency Provider Emergency Medicine; PCP Family Medicine
DX: S80.02XA Contusion of left knee, initial encounter (principal); W18.30XA Fall on same level, unspecified, initial encounter; Y93.9 Activity, unspecified; Y92.512 Supermarket, store or market as the place of occurrence of the external cause; Y99.8 Other external cause status; M25.462 Effusion, left knee; G89.29 Other chronic pain
CPT/HCPCS: 73564; 80048; 85025; 96374; 96375; 96376; 99284; A4216

== ENCOUNTER 2021-04-14 12:30 | Outpatient (RCR) | payer MEDICARE, SELFPAY ==
--- NOTE | 2021-03-15 12:58 | HP.PTEVAL_ITS ---
Patient's Visit Information BERNARDA JOSEPH is a 75 year old M referred to Physical Therapy by Dr. Burt Quinones DO with a diagnosis of Degenerative scoilosis and stenosis. Date of Evaluation: 03/15/21 Physical Therapist: Sedrick Underwood, DPT, OCS, CSCS - Visit Plan Frequency: 2x /Week Duration: 4-6 Weeks Plan: 2x/week for 4-6 weeks for instruction in and progression to HEP in the following. 1. LB ROM mat table. 2. core strength mat table. 3. shoulder elevation ROM and postural strength. 4. LE strength knees and hips. All to progress to HEP as safety allows - Subjective H/o Polio iwth leg weakness at age 6. Born prior to vaccine and it effected mostly R side of body. Had braces as a youngster and had surgery. Had two spinal fusions in 4th grade to stop scoliosis and another R leg surgery in 7th grade. No crutches or braces needed after 3rd grade. 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 Things got harder in his 30s. Had post polio syndrome. At age 67 was getting very weak and fell alot and sustained many broken bones. L foot and R tibia and R femur and patella and R hip in last 10 years. Weakness progresses and is effecting balance. 3-4 years ago started getting R LB and he had MRI and has stenosis. Saw pain management for Basali until a couple years ago. Saw Dr. Gonzalez due to pain and will go back to pain management and have PT. No f/u scheduled with Dr. Gonzalez. Pain is comfortable at rest. Sometimes when he gets up in R LB and hip and leg shooting to 8/10 with trasnfers, reaching for something. Avoids activities on certain days if he is hurting. Last fall 1.5 month ago as legs give out at times. Uses B crutches and 4 point gait pattern. Used them for 4 years. Has not fallen with crutches, stepping out of bathroom without them or grocery cart. Basic ADLs are getting done. Live with in one story and 2 small steps to enter. Not employed. Can rake some leaves with one hand, does heavy work, he does housework. Hobbies include: fishing but unable to do that due to pain. No reguar exercises - Pain R LB/leg Pain Intensity (Out of 10): 0 Pain Intensity Range: 0, 8 - Objective Walks with B crutches and 4 point gait pattern back to [facility] room mod I. Trasnfers bed adn chair I Posture in leaned L. 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 scoliosis L thoracic, r rib hump. R scap elevated, R pelvis lowr one inch vs L.. R leg shorter than L with 1/2 inch heel lift.Pt stays flexed in the lumbar and thoracic spine and head looks down at floor. Can correct with cues. L/S AROM L sb hurts right side, ext mod limited and R sb no pain. Cervical aROM WFL limited to 25 ex and 40 rotations. UE AROM WFL with 140 elevation and 45 ext rotation B, hands behind back easily. reflexes 1/3 bi and tri and sensation WNL to gross light touch. Strength is 3+ R shoulder and 4- L. Elbows 4- R and 4 L. Functional wrist and hand strength. LE reflexes 0/3 patella and achilles. sensation WNL to gross light touch. Strength R LE ankle 1 and it is fused, knee 3 HS nad 1 quad, hip abd 3 R and flexion 3+ and ext 3. L hip 3 abd and ext, 4- flexion, knee is 3+ ext and 4- curl, ankle has AFO due to foot drop and just slight AROM. Healed scars on back form fusion long time ago. toightness palpable R scap muscles. Flexion OK. unable to walk safely without crutches due to R leg weakness. Can stand with crutches for short durations but poor balance dynamically. - Balance/Special Test Scores Oswestry Low Back Score: 24 - Goals Goal 1:: I approp HEP of core strength, UE elevation ROM and postural strength, LE strength to tolerance and LB ROM. Goal Time Frame: 4-6 Weeks Goal 2:: LBP 0-1/10 at most and manageable Goal Time Frame: 4-6 Weeks Goal 3:: Pt feel 50% better in overall mobility and pain levels. Goal Time Frame: 4-6 Weeks Goal 4:: < 20 oswestry score to show improved pain. - Rehabilitation Potential Physical Therapy Diagnosis: Chronic care home postural deficits leading to degneration in LB and core weakness. Rehabilitation Potential: Questionable - Anticipated Interventions Patient/Client Instruction: Educate patient on: Condition, Plan of Care For the Purpose of:: To decrease pain, To increase ROM, To improve muscle performance and motor function, To increase tolerance to activity/condition/position Therapeutic Exercise to Include: Strength training, Postural training, Passive ROM, Active ROM, Dynamic Lumbar Stabilization, Scapular Strength/Stabilization For the Purpose of:: To decrease pain, To increase ROM, To improve muscle performance and motor function, To increase tolerance to activity/condition/position, To improve ability of physical actions for home/community/work/leisure TENS: Yes For the Purpose of:: To decrease pain Thank you for the opportunity to evaluate your patient. For Medicare and Medicare HMO plans, please review the plan of care and approve it. It will need to be FAXED BACK to us at [phone] for Medicare purposes. For Medicare only, by signing this I certify the plan of care. Please let me know if there are questions or concerns regarding this plan of care. Physician Signature: Date:
--- NOTE | 2021-04-14 13:09 | HP.PTREVAL ---
Dr. Burt Quinones, DO, It has been my pleasure to treat BERNARDA JOSEPH over the last 8 visits for Degenerative scoilosis and stenosis. Please see the progress note below for an update on the physical therapy plan of care! Subjective: No pain. Ready to be done and on his own. Will continue via HEP. Movign better adn better strength. No pain lately since injection. Injection was 2 weeks ago. will see Basali on 04/18. Objective/Function: Walks with 2 crutches 4 point pattern I. ROM lowback doing well and not painful. Limited by his weakness and dysfunction, not pain. Moving well without pain,. new goal set and fair prognosis. Plan Plan: 2x/week for 2-4 weeks as needed to get I with machine based gym workout for core, posture adn LE and then d/c to [employer] program. Balance/Gait/Functional tests - Balance/Special Test Scores Oswestry Low Back Score: 14 Goals Goal 1:: I approp HEP of core strength, UE elevation ROM and postural strength, LE strength to tolerance and LB ROM. Goal Time Frame: 4-6 Weeks Goal Progress: Goal Met Goal 2:: LBP 0-1/10 at most and manageable Goal Time Frame: 4-6 Weeks Goal Progress: Goal Met since injection Goal 3:: Pt feel 50% better in overall mobility and pain levels. Goal Time Frame: 4-6 Weeks Goal Progress: 90% Goal 4:: < 20 oswestry score to show improved pain. Goal Progress: Goal Met Goal 5:: I gym ex for [employer] performance. Goal Time Frame: 2-4 Weeks Goal Progress: NEW GOAL Anticipated Interventions Patient/Client Instruction: Educate patient on: Condition, Plan of Care For the Purpose of:: To decrease pain, To increase ROM, To improve muscle performance and motor function, To increase tolerance to activity/condition/position Therapeutic Exercise to Include: Strength training, Postural training, Passive ROM, Active ROM, Dynamic Lumbar Stabilization, Scapular Strength/Stabilization For the Purpose of:: To decrease pain, To increase ROM, To improve muscle performance and motor function, To increase tolerance to activity/condition/position, To improve ability of physical actions for home/community/work/leisure TENS: Yes For the Purpose of:: To decrease pain Please do not hesitate to contact me at [phone] by phone or if you have questions or concerns regarding this new plan of care! Sincerely, Sedrick Underwood, DPT, OCS, CSCS
--- NOTE | 2021-06-07 12:39 | HP.PT.NRP ---
BERNARDA JOSEPH was seen in my office for initial evaluation on 03/15/21. The following Plan of Care was established for this patient: Initial Frequency: 2x /Week Initial Duration: 4-6 Weeks Patient/Client Instruction: Educate patient on: Condition, Plan of Care For the Purpose of:: To decrease pain, To increase ROM, To improve muscle performance and motor function, To increase tolerance to activity/condition/position Therapeutic Exercise to Include: Strength training, Postural training, Passive ROM, Active ROM, Dynamic Lumbar Stabilization, Scapular Strength/Stabilization For the Purpose of:: To decrease pain, To increase ROM, To improve muscle performance and motor function, To increase tolerance to activity/condition/position, To improve ability of physical actions for home/community/work/leisure TENS: Yes For the Purpose of:: To decrease pain This patient was last seen in our office 04/14/21. Pertinent comments regarding their Physical therapy will appear below: Pt seen 8 visits of POC and was 90% better.. The plan was to continue one more month but patient did not schedule or attend. at this point, it has been over 6 weeks and I will discontinue her from my care. At this point I will be discontinuing this patient from physical therapy. I would be happy to see this patient again in the future if found appropriate by the physician. Thank you! Sedrick Underwood, DPT, OCS, CSCS Balance/Gait/Functional tests - Balance/Special Test Scores Oswestry Low Back Score: 14
== END 2021-04-14 19:00 | disposition home or self-care (01) ==
LOC: PT 12:30
PROVIDERS: PCP Family Medicine; Referring Provider Orthopaedic Surgery; Visit Provider Orthopaedic Surgery
DX: M41.9 Scoliosis, unspecified (principal)
CPT/HCPCS: 97110; 97163; 97164

== ENCOUNTER 2021-06-16 10:45 | Emergency (ER) | payer MEDICARE, SELFPAY ==
[2021-06-16 10:46] VITALS: BP 178/89; PULSE 111; RESP 18; TEMP 36.6; O2SAT 98; BMI 24.6
--- NOTE | 2021-06-16 10:56 | RAD_ITS ---
STUDY: X-RAY - RIGHT KNEE REASON FOR EXAM: Male, 76 years old. Injury/Pain TECHNIQUE: 4 view(s) of the knee. COMPARISON: Comparison is made with prior study dated 01/29/2021. FINDINGS: The patient is status post open reduction and internal fixation of the distal femoral fracture. Intramedullary rishi fixation device is seen in the tibia. Old avulsion fracture of the anterior tibial tuberosity. Prior fixation of a patellar fracture. Normal medial femorotibial compartment. Normal lateral femorotibial compartment. Normal patellofemoral articulation. Diffuse soft tissue swelling. RAD/Knee 4 or More Views IMPRESSION: Postoperative changes. Soft tissue swelling. Electronically Signed: Jv Burrows MD at 11:58 EST ,
--- NOTE | 2021-06-16 10:56 | ED.VIS.FALL ---
HPI HPI - Fall History of Present Illness Chief Complaint: Lower Extremity Injury Detail of Chief Complaint: Right knee pain status post fall Informant: patient Occured/Mechanism Occurred: Yesterday Mechanism/Context: Yes same level fall and Yes trip Narrative: Leg gave out and landed on knee Fall from Height (ft): Standing Fall down steps #: Not applicable Usually ambulates: - (Has a brace which she did not wear yesterday) Pain/Injury Pain Location: lower extremity Quality of Pain: Dull and Aching Current Severity: Mild Maximum Severity: Moderate Worsened by: Movement and weightbearing Relieved by: Better if extended Associated Symptoms Associated Symptoms: Negative for Parasthesias, Weakness, Loss of function, Inability to ambulate and Loss of consciousness Narrative Narrative: Patient is a 76-year-old male with history of polio and post polio syndrome who presents with right knee pain status post fall. He has a brace which he did not wear yesterday. Patient states he tripped/lost his balance landed on his knee. He is status post knee surgery. He denies paresthesia, anesthesia or motor weakness. He denies any other injury or pain. Tetanus Immunization: Unknown Prior similar symptoms: No Recent Illness/Hospitalization: No PFSH PFSH Medical History Degenerative scoliosis Lumbar radicular pain Sleep apnea Tonsillectomy planned Home Medications oxycodone-acetaminophen 5 mg-325 mg tablet 1 tab PO TID 04/27/17 [History Last Taken 02/03/20 15:00] qsotqzuf-xsy-RN-lycopen-lutein 1 ea PO DAILY 02/03/20 [History Last Taken 02/03/20] niacin 500 mg PO DAILY 02/03/20 [History Last Taken 02/03/20] nifedipine 30 mg PO QHS 02/03/20 [History Last Taken 02/02/20] tamsulosin 0.4 mg PO DAILY 02/03/20 [History Last Taken 02/03/20] venlafaxine 37.5 mg PO DAILY 02/03/20 [History Last Taken 02/03/20] calcium carbonate-vitamin D3 [Calcium 500 + D (D3)] 1 tab PO DAILY 01/29/21 [History Last Taken Unknown] hydrocodone-acetaminophen 1 tab PO Q6H PRN PRN 3 Days #10 tablet 06/16/21 [Rx Last Taken Unknown] Allergy/AdvReac Type Severity Reaction Status Date / Time metronidazole [From Flagyl] AdvReac Nausea/Vom/ Verified 06/16/21 10:47 Diarrhea DECONGESTANTS Allergy TACHYCARDIA Uncoded 06/16/21 10:47 Family History Other CVA (cerebral vascular accident) Myocardial infarction Surgical History H/O adenoidectomy H/O spinal fusion Hip fracture, right History of open reduction and internal fixation (ORIF) procedure History of uvulectomy Right tibial fracture Social History (Updated 06/16/21 @ 11:[address] Derrick Dawn MD) household members: spouse housing: house Smoking Status: Never smoker substance use type: does not use ROS ROS ED Musculoskeletal Musculoskeletal: Reports other Details: Right knee pain ; Denies arthralgias, back pain, myalgias or neck pain Integumentary Denies abscess, Abrasions or rash Neurologic Neurologic: Reports paresthesias and weakness; Denies headache(s) Hematologic/Lymphatic Hematologic/Lymphatic: Denies easy bleeding or easy bruising EXAM Physical Exam Const Vital Signs: 06/16/21 10:46 Temperature 97.9 F Temperature Source Temporal Pulse Rate 111 H Respiratory Rate 18 Blood Pressure 178/89 H Blood Pressure Mean 118 Pulse Ox 98 Oxygen Delivery Method Room Air Positive well nourished and well developed General Appearance ED: well developed and NAD HEENT Reports normocephalic atraumatic Eyes PERRL and EOMs intact bilaterally Eyes Narrative: Ears normal. Nares patent. General Eye ED: Negative for pale conjunctiva or scleral icterus Neck full ROM and supple Resp normal respiratory effort and clear to auscultation bilaterally Cardio regular rate, regular rhythm, S1 normal heart sound, S2 normal heart sound and no murmurs Extremity normal capillary refill, no clubbing, cyanosis or edema, no calf tenderness and no pedal edema; Negative for normal to inspection, full ROM or no joint enlargement Extremity Narrative: Patient right leg is smaller than the left leg due to polio syndrome. Patient's right knee is larger than the left knee. The patella is not ballotable. There is an effusion. He does have joint line tenderness. The tenderness is greater on the medial side compared to the lateral. Valgus stress testing reveals slight laxity compared to the uninjured side. Varus stress testing elicits no laxity. Josselyn's test does reveal laxity. This may be due to his prior surgeries. Difficult to perform modified Abdifatah's test. There is no pain to palpation of the popliteal fossa. There is slight fullness. There is no palpable mass or pulsatile mass. Neuro oriented x3 and CN's II-XII intact bilaterally [place] Coma Scale: document GCS findings Spontaneous Obeys Commands Oriented 15 Sensorium / Orientation: alert Psych mental status grossly normal and thought process normal Skin Lesions: no lesions Rashes: no rashes MDM MDM MDM Narrative Medical decision making narrative: Patient was medicated with hydrocodone and acetaminophen and x-ray was obtained to determine if patient has fracture. Radiography Diagnostic Testin view x-ray of the right knee reveals prior repairs. There is significant degenerative changes. There is no obvious effusion. There is no evidence of fracture, subluxation or dislocation. Discharge Plan Triage Chief Complaint: Lower Extremity Injury ED Provider: Derrick Dawn Dx/Rx/DC Orders Clinical Impression: Contusion of right knee, initial encounter Instructions: ED Contusion, Lower Extremity Prescriptions: New hydrocodone-acetaminophen [hydrocodone-acetaminophen] 1 TABLET tablet 1 tab PO Q6H PRN PRN (Reason: Pain) 3 Days Qty: 10 RF: 0 No Action oxycodone-acetaminophen 5-325 mg tablet 1 tab PO TID RF: 0 venlafaxine 37.5 MG capsule 37.5 mg PO DAILY RF: 0 tamsulosin 0.4 MG capsule 0.4 mg PO DAILY RF: 0 nifedipine 30 MG tablet extended release 24hr 30 mg PO QHS RF: 0 niacin 500 MG tablet extended release 24 hr 500 mg PO DAILY RF: 0 cbjkfavh-ybf-UO-lycopen-lutein 1 EACH tablet 1 ea PO DAILY RF: 0 calcium carbonate-vitamin D3 [Calcium 500 + D (D3)] 500 mg(1,250mg) -125 unit Tablet 1 tab PO DAILY RF: 0 Primary Care Provider: Luis Medina Referrals: Luis Medina MD [Primary Care Provider] - Disposition Disposition: Home, Self Care
[2021-06-16] MEDS: HYDROcodone Bitartrate/Apap 5/325 Tablet PO (11:04)
== END 2021-06-16 11:46 | disposition home or self-care (01) ==
PROVIDERS: Emergency Provider Emergency Medicine; PCP Family Medicine; Visit Provider Emergency Medicine
DX: S80.01XA Contusion of right knee, initial encounter (principal); W01.0XXA Fall on same level from slipping, tripping and stumbling without subsequent striking against object, initial encounter
CPT/HCPCS: 73564; 99283

== ENCOUNTER 2021-06-21 09:44 | Outpatient (CLI) | payer MEDICARE, SELFPAY | END 2021-06-21 23:59 | disposition home or self-care (01) | LOC: LAB 09:46 | PROVIDERS: PCP Family Medicine; Referring Provider Urology; Visit Provider Urology | DX: C61 Malignant neoplasm of prostate (principal) | CPT/HCPCS: 36415; 84153; 84403 ==

== ENCOUNTER 2021-06-28 07:40 | Outpatient (CLI) | payer MEDICARE, SELFPAY ==
--- NOTE | 2021-06-28 07:43 | CT_ITS ---
STUDY: CT RIGHT KNEE WITHOUT CONTRAST REASON FOR EXAM: Right knee pain, recent fall, evaluate for occult fracture. TECHNIQUE: Transaxial CT imaging of the knee was performed. Coronal, sagittal and 3-D images were reformatted. Individualized dose optimization techniques were used for this CT. COMPARISON: Radiographs 06/16/2021. FINDINGS: There is osteopenia. There is an orthopedic plate and screws transfixing healed fracture deformity of the distal femur. There is an intramedullary rishi and orthopedic screws in the tibia with a remote avulsion fracture of the anterior tibial tubercle without osseous bridging (sagittal reconstructions 13-18). There is orthopedic hardware in the patella with healed patellar fracture. There is osseous bridging at the anterior aspect of the proximal tibiofibular articulation (sagittal reconstructions 14, 15). There is mild joint space narrowing of the patellofemoral articulation (axial image 23). There is preservation of joint space of the medial and lateral femorotibial compartments. There is a small joint effusion. There is a small corticated ossicle at the inferior pole of the patella (sagittal reconstructions 15). There is muscle atrophy. CT/Extremity Lower without Contra IMPRESSION: Postoperative changes of the distal femur, proximal tibia and patella with remote avulsion fracture of the anterior tibial tubercle without demonstrated recent fracture. Mild arthrosis of the patellofemoral articulation. Small joint effusion. Electronically Signed: Bismark Ventura MD at 12:25 EST ,
== END 2021-06-28 23:59 | disposition home or self-care (01) ==
LOC: CT 07:41
PROVIDERS: PCP Family Medicine; Referring Provider Orthopaedic Surgery; Visit Provider Orthopaedic Surgery
DX: M25.469 Effusion, unspecified knee (principal); M25.561 Pain in right knee
CPT/HCPCS: 73700

== ENCOUNTER → 2021-12-20 | Outpatient (CLI) | payer MEDICARE, SELFPAY ==
--- NOTE | 2021-12-20 14:58 | PFTCOMP ---
COMPLETE PULMONARY FUNCTION TEST INTERPRETATION Brief HPI: Patient is a 76-year-old male, currently under the care of Dr. Medina, who presents to [facility] for complete pulmonary function tests secondary to diagnosis of dyspnea. Respiratory therapist reports good effort and reproducible results. Interpretation: Forced expiration spirometry shows no large airways obstructive ventilatory defect with an FEV1 of 42% predicted. There is no significant bronchodilator response by strict ATS criteria. Spirograms are of good quality and plateau normally. The respiratory flow volume loop shows a normal pattern. Lung volumes by body plethysmography show a moderately decreased total lung capacity at 3.59 L, 68% predicted. FRC and RV are elevated out of proportion. Lung volume measurements are consistent with air-trapping. Diffusion capacity by carbon monoxide is normal at 86% predicted. The airway resistance is slightly elevated. No previous pulmonary function tests were available for review. Impression: Moderate restrictive ventilatory defect with some stigmata of possible concomitant small airways disease, and a pattern consistent with musculoskeletal restriction.
== END | disposition home or self-care (01) ==
LOC: PSN 12:50
PROVIDERS: PCP Family Medicine; Referring Provider Family Medicine; Visit Provider Family Medicine
DX: R06.02 Shortness of breath (principal)
CPT/HCPCS: 94060; 94726; 94729

== ENCOUNTER → 2021-12-29 | Outpatient (CLI) | payer MEDICARE, SELFPAY ==
[2021-12-29 14:56] LABS: PSA,Total- Diagnostic 0.17 ng/mL (0.0-4.0)
== END | disposition home or self-care (01) ==
LOC: LAB 14:23
PROVIDERS: PCP Family Medicine; Visit Provider Registered Nurse
DX: C61 Malignant neoplasm of prostate (principal)
CPT/HCPCS: 36415; 84153; 84403

== ENCOUNTER 2022-01-21 13:48 | Emergency (ER) | payer MEDICARE, SELFPAY ==
[2022-01-21] VITALS (9 sets, daily range): BP systolic 144–161; BP diastolic 94–103; PULSE 98–119; RESP 18–35; TEMP 36.6–36.7; O2SAT 91–95; BMI 24.6
--- NOTE | 2022-01-21 14:34 | ED.VIS.DYS ---
HPI History of Present Illness Chief Complaint: Shortness of Breath Informant: patient Onset/Context/Timing Onset: Month(s) Context: gradual Timing: Continuous Quality: Positive for Orthopnea Worsened by: Lying flat Relieved by: Nothing Associated Symptoms Negative for cough, rhinorrhea, post nasal drip, ear pain, fever, sore throat, chills, sweats, clear sputum, white sputum, yellow sputum or green sputum Chest Pain: Positive for Sharp (Left lower chest) Narrative Narrative: Patient presents with shortness of breath that has been getting worse over the past few months. Patient states it is gradually getting worse. Patient states he has a history of polio as a child and that his lungs are approximately half the size that they should be. Patient states his breathing is worse with laying flat. Patient states his breathing is also worse with prolonged sitting. Patient denies any cough. Patient denies any fevers or chills. Patient admits to some left lower chest pain. Patient describes this as sharp. Patient states nothing makes it worse and nothing makes it better. [facility] Medical History Degenerative scoliosis Hypertension Lumbar radicular pain Sleep apnea Tonsillectomy planned Home Medications oxycodone-acetaminophen 5 mg-325 mg tablet 1 tab PO TID pain 04/27/17 [History Last Taken 02/03/20 15:00] cpokqmgc-oeu-lksyw acid 300 mcg-lycopene 600 mcg-lutein 300 mcg tablet 1 ea PO DAILY supplement 02/03/20 [History Last Taken 02/03/20] niacin 500 mg tablet,extended release 24 hr 500 mg PO DAILY supplement 02/03/20 [History Last Taken 02/03/20] nifedipine 30 mg tablet,extended release 24 hr 60 mg PO QHS blood pressure 02/03/20 [History Last Taken 02/02/20] tamsulosin 0.4 mg capsule 0.4 mg PO BID prostate 02/03/20 [History Last Taken 02/03/20] venlafaxine 37.5 mg capsule,extended release 24 hr 75 mg PO DAILY mental health 02/03/20 [History Last Taken 02/03/20] calcium carbonate 500 mg-vitamin D3 3.125 mcg (125 unit) tablet 1 tab PO DAILY 01/29/21 [History Last Taken Unknown] albuterol sulfate 90 mcg/actuation aerosol inhaler (Ventolin HFA) 1 - 2 puff inhalation Q4H PRN PRN Wheezing ##1 01/21/22 [Rx Last Taken Unknown] Allergy/AdvReac Type Severity Reaction Status Date / Time metronidazole [From Flagyl] AdvReac Nausea/Vom/ Verified 01/21/22 13:48 Diarrhea DECONGESTANTS Allergy TACHYCARDIA Uncoded 06/16/21 10:47 Family History Other CVA (cerebral vascular accident) Myocardial infarction Surgical History H/O adenoidectomy H/O spinal fusion Hip fracture, right History of open reduction and internal fixation (ORIF) procedure History of uvulectomy Right tibial fracture Social History household members: spouse housing: house Smoking Status: Never smoker substance use type: does not use ROS ROS ED Constitutional Constitutional ED: Denies chills or fever(s) Eyes Eyes: Denies blurry vision or change in vision ENT ENT ED: Denies rhinorrhea or sore throat Cardiovascular Cardiovascular: Reports chest pain; Denies palpitations Respiratory/Chest Respiratory/Chest: Reports dyspnea; Denies cough Gastrointestinal Gastrointestinal: Reports nausea; Denies vomiting Genitourinary Genitourinary ED: Denies dysuria or hematuria Musculoskeletal Musculoskeletal: Reports back pain and neck pain Integumentary Denies abscess or rash Neurologic Neurologic: Denies headache(s) or weakness Allergic/Immunologic Allergic/Immunologic ED: Denies mouth swelling or urticaria EXAM Physical Exam Const Vital Signs: 01/21/22 13:49 01/21/22 13:51 01/21/22 13:58 Temperature 97.8 F 97.8 F Temperature Source Temporal Temporal Pulse Rate 112 H 112 H Respiratory Rate 18 18 Respiratory Effort Normal Non-Labored Respiratory Depth Normal Respiratory Pattern Normal Blood Pressure 160/98 H 160/98 H Blood Pressure Mean 118 118 Pulse Ox 95 95 Oxygen Delivery Method Room Air Room Air Room Air 01/21/22 14:56 01/21/22 14:56 01/21/22 15:09 Temperature 97.9 F Temperature Source Oral Pulse Rate 104 H 98 Respiratory Rate 26 H 22 H Respiratory Effort Respiratory Depth Respiratory Pattern Blood Pressure 144/101 H Blood Pressure Mean 115 Pulse Ox 94 93 Oxygen Delivery Method Room Air Room Air 01/21/22 15:54 01/21/22 16:14 01/21/22 16:47 Temperature 98.0 F Temperature Source Oral Pulse Rate 119 H 109 H 111 H Respiratory Rate 22 H 20 H 35 H Respiratory Effort Respiratory Depth Respiratory Pattern Blood Pressure 154/102 H 153/97 H 161/94 H Blood Pressure Mean 119 115 116 Pulse Ox 91 91 92 Oxygen Delivery Method Room Air Room Air Room Air Positive well nourished and well developed General Appearance ED: well developed and NAD HEENT Reports moist mucous membranes Neck supple and no JVD Resp normal respiratory effort Auscultation: diminished lung sounds bilateral lower Cardio regular rate, regular rhythm and no murmurs GI normal to inspection, nondistended, normoactive bowel sounds and non-tender Palpation: soft Extremity normal to inspection General Extremety ED: Negative for edema or tenderness General Extremity: Negative for edema Neuro oriented x3, CN's II-XII intact bilaterally and no sensory deficits noted Sensorium / Orientation: alert Motor Exam: strength 5/5 throughout Psych mental status grossly normal Skin no rashes or lesions noted MDM MDM MDM Narrative Medical decision making narrative: Patient was given a DuoNeb aerosol here. Portable 1 view chest x-ray was obtained. On my interpretation, lung maced[place] are clear. There is normal cardiac silhouette. Bony thorax is normal. There is no acute process noted. Radiologist also interpreted the x-ray and agrees. CBC was within normal limits. PT with INR and PTT were within normal limits. D-dimer was normal. Comprehensive metabolic profile was within normal limits. Patient is feeling better on reevaluation. Patient was given a prescription for an albuterol inhaler. Patient was instructed to follow-up with his primary care physician in 5 to 7 days. Patient understood and was agreeable with the plan. All questions were answered. Lab Data Attestation: I reviewed the patient's lab results. Labs: Laboratory Results - last 24 hr 01/21/22 01/21/22 01/21/22 14:52 14:52 14:52 WBC 6.6 RBC 4.97 Hgb 15.0 Hct 46.7 MCV 94.0 MCH 30.2 MCHC 32.1 RDW Std Deviation 46.3 H RDW Coeff of Larry 13.4 Plt Count 282 MPV 9.7 Immature Gran % (Auto) 0.300 Neut % (Auto) 77.1 H Lymph % (Auto) 10.2 L [place] % (Auto) 10.9 H Eos % (Auto) 0.6 Baso % (Auto) 0.9 Absolute Neuts (auto) 5.1 Absolute Lymphs (auto) 0.67 L Nucleated RBC % 0 PT 12.5 INR 1.0 APTT 30.2 D-Dimer Quant (PE/DVT) 0.29 Sodium 142 Potassium 4.1 Chloride 101 Carbon Dioxide 35.0 H Anion Gap 6 BUN 22 H Creatinine 0.63 L Estim Creat Clear Calc 56.38 Est GFR (MDRD) Af Amer 159 Est GFR (MDRD) Non-Af 131 BUN/Creatinine Ratio 34.8 H Glucose 96 Calcium 9.6 Total Bilirubin 0.30 AST 18 ALT 36 Alkaline Phosphatase 69 Troponin I High Sens 14 Total Protein 7.2 Albumin 3.7 Globulin 3.5 Albumin/Globulin Ratio 1.1 Radiography Chest X-Ray - ED: 1 View, Read by ED Physician, Read by Radiologist and No Acute Disease Diagnostic Testing: Clinical Impression(s) from Imaging Studies Chest X-Ray 01/21/22 14:38 IMPRESSION: No acute cardiopulmonary abnormality. No interval change. Electronically Signed: Felton Pavon MD at 15:19 EDT , EKG Initial EKG: Attestation: I personally reviewed and interpreted this EKG as follows: Interpretation: Sinus Tachycardia (104) and Non-Specific ST Changes Prior EKG tracings: available for review Prior: Unchanged (01/02/2017) Discharge Plan Triage Chief Complaint: Shortness of Breath ED Provider: Sedrick Mann Dx/Rx/DC Orders Clinical Impression: Dyspnea, Polio Instructions: ED Dyspnea Prescriptions: New albuterol sulfate [Ventolin HFA] 90 mcg/actuation HFA aerosol inhaler 1 - 2 puff inhalation Q4H PRN PRN (Reason: Wheezing) Qty: 1 0RF No Action oxycodone-acetaminophen 5-325 mg tablet 1 tab PO TID venlafaxine 37.5 MG capsule 75 mg PO DAILY tamsulosin 0.4 MG capsule 0.4 mg PO BID nifedipine 30 MG tablet extended release 24hr 60 mg PO QHS niacin 500 MG tablet extended release 24 hr 500 mg PO DAILY odymibrl-pgt-AX-lycopen-lutein 1 EACH tablet 1 ea PO DAILY calcium carbonate-vitamin D3 [Calcium 500 + D (D3)] 500 mg(1,250mg) -125 unit Tablet 1 tab PO DAILY Primary Care Provider: Luis Medina Referrals: Luis Medina MD [Primary Care Provider] - 3-5 Days Disposition Disposition: Home, Self Care
--- NOTE | 2022-01-21 14:38 | RAD_ITS ---
EXAM: XR CHEST, 1 VIEW CLINICAL INDICATION: Dyspnea TECHNIQUE: Frontal view of the chest. This report was created using [employer] report generation technology. COMPARISON: XR Chest dated 03/07/2019 FINDINGS: LUNGS AND PLEURAL SPACES: Thoracic deformity results in some volume loss change of the right lung. Stable right apical pleural thickening. No pneumothorax. No effusion. HEART: Normal heart size. MEDIASTINUM: No mediastinal or hilar mass. BONES/JOINTS: Deformity of the bony thorax related to severe scoliosis. SOFT TISSUES: Normal. RAD/Chest 1 View (Portable) IMPRESSION: No acute cardiopulmonary abnormality. No interval change. Electronically Signed: Felton Pavon MD at 15:19 EDT ,
--- NOTE | 2022-01-21 14:38 | EKG12_ITS ---
Test Reason : SOB Blood Pressure : / mmHG Vent. Rate : 104 BPM Atrial Rate : 104 BPM P-R Int : 166 ms QRS Dur : 060 ms QT Int : 328 ms P-R-T Axes : 071 -02 063 degrees QTc Int : 431 ms Sinus tachycardia Septal infarct , age undetermined Cannot rule out Inferior infarct , age undetermined Abnormal ECG Confirmed by DENA HERNANDEZ, ALEXIS ([id number]), deputy editor in chief DELMIS CORREA ([id number]) on 01/24/2022 12:39:08 PM Referred By: Confirmed By:ALEXIS FERNANDES MD
[2022-01-21] MEDS: Ipratropium/Albuterol Sulfate 3 ML AMPUL.NEB INHALATION (14:55)
[2022-01-21 15:06] LABS: Absolute Lymphocyte Count 0.67 X10^3/uL (0.83-4.51); Absolute Neutrophil Count 5.1 X10^3/uL (2.0-7.7); Basophil# 0.06 X10^3/uL; Basophil% 0.9 % (0-1); Eosinophil# 0.04 X10^3/uL; Eosinophils% 0.6 % (0-5); Hematocrit 46.7 % (40-54); Lymphocyte # 0.67 X10^3/ul (0.83-4.51); Lymphocyte % 10.2 % (19-41); Mean Corp Hgb Conc 32.1 g/dL (32-36); Mean Corpuscular Hgb 30.2 pg (27.0-32.0); Mean Platelet Vol. 9.7 fl (6.2-12.0); Monocyte# 0.72 X10^3/uL; Monocyte% 10.9 % (0-10); NRBC Flagged by Analyzer 0 % (0-5); Neutrophil # 5.07 X10^3/uL (2.7-7.7); Neutrophil % 77.1 % (47-70); Platelet Count 282 K/mm3 (150-450); RBC Distribution Width CV 13.4 % (11.6-14.6); RBC Distribution Width SD 46.3 fl (35.1-43.9); Red Blood Count 4.97 M/mm3 (4.6-6.2); White Blood Count 6.6 K/mm3 (4.4-11.0)
[2022-01-21 15:15] LABS: D-Dimer Quantitative (DVT/PE) 0.29 FEU/ug/m (0.27-0.49)
[2022-01-21 15:18] LABS: ALB/GLOB Ratio 1.1 RATIO (0.9-2.4); AST(SGOT) 18 U/L (15-37); Alanine Aminotransfer ALT/SGPT 36 U/L (16-61); Albumin, Serum 3.7 g/dL (3.2-5.0); Alkaline Phosphatase 69 U/L (45-117); Anion Gap 6 (5-15); BUN 22 mg/dL (7-18); BUN/Creat Ratio 34.8 RATIO (10-20); Calcium,Total 9.6 mg/dL (8.5-10.1); Chloride 101 mmol/L (98-107); Creatinine, Serum 0.63 mg/dL (0.70-1.30); EST Glomerular Filtration Rate 131 mL/min (>60); Est Glom Filt Rate - Afr Amer 159 mL/min (>60); Estimated Creatinine Clearance 56.38 ml/min; Globulin 3.5 g/dL (2.2-4.2); Glucose 96 mg/dL (74-106); Potassium 4.1 mmol/L (3.5-5.1); Protein, Total 7.2 g/dL (6.4-8.2); Sodium Level 142 mmol/L (136-145); Troponin-I HS 14 pg/mL (3.0-78.0)
[2022-01-21 15:22] LABS: Prothrombin Time (Protime)PT. 12.5 SECONDS (11.7-14.9)
[2022-01-21 15:23] LABS: Partial Thromboplast Time 30.2 Seconds (24.1-36.2)
== END 2022-01-21 17:17 | disposition home or self-care (01) ==
PROVIDERS: Emergency Provider Emergency Medicine; PCP Family Medicine; Visit Provider Emergency Medicine
DX: R06.02 Shortness of breath (principal); I10 Essential (primary) hypertension; Z79.899 Other long term (current) drug therapy; Z86.12 Personal history of poliomyelitis
CPT/HCPCS: 71045; 80053; 84484; 85025; 85379; 85610; 85730; 87428; 93005; 94640; 99285; A4216

== ENCOUNTER → 2022-02-02 | Outpatient (CLI) | payer MEDICARE, SELFPAY ==
[2022-02-02 10:19] LABS: Absolute Lymphocyte Count 0.79 X10^3/uL (0.83-4.51); Absolute Neutrophil Count 4.4 X10^3/uL (2.0-7.7); Basophil# 0.05 X10^3/uL; Basophil% 0.8 % (0-1); Eosinophil# 0.09 X10^3/uL; Eosinophils% 1.5 % (0-5); Hematocrit 46.8 % (40-54); Hemoglobin 15.2 g/dL (13.0-16.5); Lymphocyte # 0.79 X10^3/ul (0.83-4.51); Lymphocyte % 13.3 % (19-41); Mean Corp Hgb Conc 32.5 g/dL (32-36); Mean Corpuscular Hgb 31.1 pg (27.0-32.0); Mean Corpuscular Volume 95.7 fL (80-94); Mean Platelet Vol. 10.3 fl (6.2-12.0); Monocyte# 0.63 X10^3/uL; Monocyte% 10.6 % (0-10); NRBC Flagged by Analyzer 0 % (0-5); Neutrophil # 4.37 X10^3/uL (2.7-7.7); Neutrophil % 73.5 % (47-70); Platelet Count 295 K/mm3 (150-450); RBC Distribution Width CV 13.3 % (11.6-14.6); RBC Distribution Width SD 47.5 fl (35.1-43.9); Red Blood Count 4.89 M/mm3 (4.6-6.2)
[2022-02-02 10:46] LABS: Anion Gap 4 (5-15); BUN 16 mg/dL (7-18); BUN/Creat Ratio 28.4 RATIO (10-20); Calcium,Total 9.2 mg/dL (8.5-10.1); Chloride 100 mmol/L (98-107); Cholesterol 186 mg/dL (200); Creatinine, Serum 0.56 mg/dL (0.70-1.30); EST Glomerular Filtration Rate 150 mL/min (>60); Est Glom Filt Rate - Afr Amer 182 mL/min (>60); Glucose 100 mg/dL (74-106); High Density Lipoprotein 81 mg/dL; Potassium 3.9 mmol/L (3.5-5.1); Sodium Level 140 mmol/L (136-145); Triglycerides 64 mg/dL; Very Low Density Lipoprotein 13 mg/dL (5-40); Vitamin D,25 Hydroxy 43.8 ng/mL
[2022-02-02 13:45] VITALS: PULSE 108; PULSE 114; PULSE 119; PULSE 120; PULSE 75; O2SAT 91; O2SAT 92; O2SAT 93; O2SAT 94; O2SAT 96
--- NOTE | 2022-02-02 14:33 | PCM.PSN.6M ---
PSN 6 Minute Walk Test 6 Minute Walk Test 6 Minute Walk Test: 6 Minute Walk Test PSN:6-Minute Walk Test Start: 02/02/22 14:07 Freq: Status: Active Protocol: [id number].[id number] Document 02/02/22 13:45 EW (Rec: 02/02/22 14:10 EW [id number]) 6 Minute Walk Test Date Performed 02/02/22 Time Performed 13:45 Height 5 ft 5 in Weight: 67.132 kg Weight in Pounds 148.[address]: Luis Medina Assistive device used: Crutches Pre-test Oxygen Delivery Method Room Air Pulse Ox (%) 96 Pulse Rate (60-100 beats/min) 75 Dyspnea Mihir Scale (0-10) 2 Exertion Mihir Scale (6-20) 10 1st minute Oxygen Delivery Method Room Air Pulse Ox (%) 92 Pulse Rate (60-100 beats/min) 114 H 2nd minute Oxygen Delivery Method Room Air Pulse Ox (%) 91 Pulse Rate (60-100 beats/min) 120 H 3rd minute Oxygen Delivery Method Room Air Pulse Ox (%) 91 Pulse Rate (60-100 beats/min) 119 H 4th minute Oxygen Delivery Method Room Air Pulse Ox (%) 93 Pulse Rate (60-100 beats/min) 120 H 5th minute Oxygen Delivery Method Room Air Pulse Ox (%) 94 Pulse Rate (60-100 beats/min) 120 H 6th minute Oxygen Delivery Method Room Air Pulse Ox (%) 92 Pulse Rate (60-100 beats/min) 108 H Post-test Oxygen Delivery Method Room Air Pulse Ox (%) 94 Pulse Rate (60-100 beats/min) 108 H Dyspnea Mihir Scale (0-10) 3 Exertion Mihir Scale (6-20) 11 Full Laps Walked 10 Partial Lap, Number of Tiles Walked 0 Total Distance Walked (ft) 590 Interpretation Interpretation: The patient was able to ambulate only 590 feet over the course of 6 minutes on room air with the assistance of crutches. Patient did have significant tachycardia with a peak heart rate of 120 bpm. Oxygen aarti was noted to be 91%. These findings are consistent with a multifactorial etiology to reduced exercise tolerance. Recommendations Recommendations: No supplemental oxygen is indicated at this time, but patient will need to be followed closely given level of desaturation.
== END | disposition home or self-care (01) ==
PROVIDERS: PCP Family Medicine; Referring Provider Family Medicine; Visit Provider Family Medicine
DX: E55.9 Vitamin D deficiency, unspecified (principal); I10 Essential (primary) hypertension
CPT/HCPCS: 36415; 80048; 80061; 82306; 85025; 94618

== ENCOUNTER → 2022-05-23 | Outpatient (CLI) | payer MEDICARE, SELFPAY ==
--- NOTE | 2022-05-23 15:48 | CT_ITS ---
INDICATION: SOB. PATIENT HAD POLIO AT AGE 6, WAS IN IRON LUNG EXAMINATION: CT CHEST WITHOUT CONTRAST - CT Chest W/O Contrast Injection TECHNIQUE: Helically acquired images were obtained of the chest. A radiation dose optimization technique was used for this scan. IV Contrast dosage and agent: None. COMPARISON: None. FINDINGS: LUNGS, PLEURA AND LARGE AIRWAYS: Bilateral perihilar interstitial thickening more pronounced in the lower lobes. No focal infiltration or pulmonary nodule. No pleural effusion or thickening. No pneumothorax. THYROID: No thyroid lesions. HEART AND PERICARDIUM: Heart is upper normal size and there is a small pericardial effusion as well as mild coronary artery calcification . CORONARY ARTERIES: Coronary artery calcification VESSELS: Atherosclerotic changes of the aorta without evidence for aneurysm. A right-sided descending aorta is observed MEDIASTINUM AND KEVIN: No mediastinal or hilar adenopathy. Esophagus is unremarkable. No hiatal hernia. UPPER ABDOMEN: No acute pathology. BONES: Dorsal spine demonstrates severe dextroscoliosis and degenerative change No suspicious lytic or blastic abnormality. CT/Chest without Contrast IMPRESSION: Mild bilateral interstitial thickening more pronounced the lower lobes.. ASHD without evidence for aortic aneurysm. Electronically Signed: Veto Martin MD at 16:21 EST ,
== END | disposition home or self-care (01) ==
LOC: CT 15:47
PROVIDERS: PCP Family Medicine; Referring Provider Internal Medicine Pulmonary Disease; Visit Provider Internal Medicine Pulmonary Disease
DX: R06.02 Shortness of breath (principal)
CPT/HCPCS: 71250

== ENCOUNTER → 2022-05-25 | Outpatient (CLI) | payer MEDICARE, SELFPAY ==
--- NOTE | 2022-05-25 11:45 | RAD_ITS ---
PROCEDURE: Sniff test. DATE OF EXAMINATION: 05/25/2022. INDICATION: Male, 77 years old. Recent onset of increased shortness of breath. Marked degree of a dextroscoliosis of the thoracic spine and levoscoliosis of the lumbar spine. FLUOROSCOPY TIME (if supplied): (16 seconds.) minutes/seconds. 2 images were obtained. RAD/Chest Sniff Test Fluoro Only IMPRESSION: Normal translation of the right and left hemidiaphragms. No evidence of paralysis. Electronically Signed: Jv Burrows MD at 12:53 EST ,
== END | disposition home or self-care (01) ==
LOC: RAD 11:43
PROVIDERS: PCP Family Medicine; Referring Provider Internal Medicine Pulmonary Disease; Visit Provider Internal Medicine Pulmonary Disease
DX: R06.02 Shortness of breath (principal)
CPT/HCPCS: 76000

== ENCOUNTER → 2022-05-26 | Outpatient (CLI) | payer MEDICARE, SELFPAY ==
--- NOTE | 2022-05-26 12:54 | VDLE_ITS ---
Reason For Study: Shortness of Breath RIGHT LEFT GSV is normal. GSV is normal. CFV is compressible, spontaneous, competent CFV is compressible, spontaneous, competent, and demonstrates pulsatile venous flow. and demonstrates pulsatile venous flow. FV is compressible, spontaneous, competent FV is compressible, spontaneous, competent and demonstrates pulsatile venous flow. and demonstrates pulsatile venous flow. POP V is compressible, spontaneous, competent POP V is compressible, spontaneous, competent and demonstrates pulsatile venous flow. and demonstrates pulsatile venous flow. T/P Trunk is compressible. T/P Trunk is compressible. PTV is compressible. PTV is compressible. RT PerV is compressible. LT PerV is compressible. Procedure This is a venous duplex using B-mode, color flow and spectral Doppler. Exam performed in department. The exam was diagnostic. VL/Venous Duplex US - Vilma Extrem Interpretation Summary Deep veins of the lower extremities are bilaterally patent and compressible seg mentally. There is no evidence of deep vein thrombosis on either side. Valvular competence appears in tact within the proximal deep venous systems bilaterally. The great saphenous veins appear bila terally patent and compressible segmentally. Pulsatile flow is noted in the deep venous system vilma aterally, which may be indicative of elevated central venous pressure (i.e. congestive heart failur e, pulmonary hypertension, etc.). Clinical correlation is advised. Ordering Physician: Vidal Gallagher V Referring Physician: Vidal Gallagher V Performed By: Jung Agarwal RVT
== END | disposition home or self-care (01) ==
LOC: CVS 12:54
PROVIDERS: PCP Family Medicine; Referring Provider Internal Medicine Pulmonary Disease; Visit Provider Internal Medicine Pulmonary Disease
DX: R06.02 Shortness of breath (principal)
CPT/HCPCS: 93970; J7040; A4216

== ENCOUNTER 2022-05-31 11:42 | Inpatient (IN) | payer MEDICARE, SELFPAY ==
[2022-05-31] VITALS (19 sets, daily range): BP systolic 95–183; BP diastolic 59–123; PULSE 99–117; RESP 12–29; TEMP 36.1–36.9; O2SAT 82–100; BMI 25.3; BMI 23.8
--- NOTE | 2022-05-31 12:56 | EKG12_ITS ---
Test Reason : SOB Blood Pressure : / mmHG Vent. Rate : 116 BPM Atrial Rate : 116 BPM P-R Int : 160 ms QRS Dur : 074 ms QT Int : 316 ms P-R-T Axes : 062 -32 070 degrees QTc Int : 439 ms Sinus tachycardia Biatrial enlargement Left axis deviation Inferior infarct , age undetermined Abnormal ECG Confirmed by DENA HERNANDEZ, ALEXIS ([id number]), editor school photograph DELMIS CORREA ([id number]) on 06/02/2022 10:09:33 AM Referred By: GAGANDEEP Confirmed By:ALEXIS FERNANDES MD
[2022-05-31 13:40] LABS: Absolute Lymphocyte Count 0.56 X10^3/uL (0.83-4.51); Absolute Neutrophil Count 4.9 X10^3/uL (2.0-7.7); Basophil# 0.04 X10^3/uL; Basophil% 0.7 % (0-1); Eosinophil# 0.03 X10^3/uL; Eosinophils% 0.5 % (0-5); Hematocrit 44.5 % (40-54); Lymphocyte # 0.56 X10^3/ul (0.83-4.51); Lymphocyte % 9.2 % (19-41); Mean Corp Hgb Conc 31.5 g/dL (32-36); Mean Corpuscular Hgb 30.6 pg (27.0-32.0); Mean Corpuscular Volume 97.2 fL (80-94); Mean Platelet Vol. 9.3 fl (6.2-12.0); Monocyte# 0.54 X10^3/uL; Monocyte% 8.9 % (0-10); NRBC Flagged by Analyzer 0 % (0-5); Neutrophil # 4.91 X10^3/uL (2.7-7.7); Neutrophil % 80.4 % (47-70); POSITIVE DIFFERENTIAL YES; Platelet Count 227 K/mm3 (150-450); RBC Distribution Width SD 50.1 fl (35.1-43.9); Red Blood Count 4.58 M/mm3 (4.6-6.2); White Blood Count 6.1 K/mm3 (4.4-11.0)
--- NOTE | 2022-05-31 13:40 | RAD_ITS ---
STUDY: X-RAY CHEST REASON FOR EXAM: Male, 77 years old. Sob TECHNIQUE: Single AP portable view of the chest. COMPARISON: Comparison is made with prior examination 01/21/2022. FINDINGS: EKG electrodes are seen. Persistent volume loss in the right lung apex with stable mild increased markings at the right lung base. Blunting of the right costophrenic angle. Normal size heart. Normal mediastinum and adrian. Normal visualized pulmonary arteries. Normal visualized aortic arch and descending thoracic aorta. There is a marked degree of a dextroscoliosis of the thoracic spine. Normal visualized ribs, clavicles, and shoulders. There is no demonstrated abnormality of the visualized soft tissue structures of the upper abdomen. RAD/Chest PA and Lateral IMPRESSION: Moderate degree of dextroconvex scoliosis. Stable volume loss in the right hemithorax. Mild increased markings at the right lung base suggestive of atelectasis. Electronically Signed: Jv Burrows MD at 14:05 EST ,
[2022-05-31 13:41] LABS: Differential Indicated SCAN CRITERIA MET
[2022-05-31 13:51] LABS: D-Dimer Quantitative (DVT/PE) 0.33 FEU/ug/m (0.27-0.49)
[2022-05-31 13:58] LABS: Anion Gap 2 (5-15); BUN 17 mg/dL (7-18); BUN/Creat Ratio 32.6 RATIO (10-20); Calcium,Total 9.4 mg/dL (8.5-10.1); Chloride 100 mmol/L (98-107); Creatinine, Serum 0.52 mg/dL (0.70-1.30); EST Glomerular Filtration Rate 164 mL/min (>60); Est Glom Filt Rate - Afr Amer 198 mL/min (>60); Estimated Creatinine Clearance 55.52 ml/min; Glucose 135 mg/dL (74-106); Potassium 4.1 mmol/L (3.5-5.1); Sodium Level 140 mmol/L (136-145); Troponin-I HS 15 pg/mL (3.0-78.0)
--- NOTE | 2022-05-31 15:04 | PCM.HP.STD ---
HPI - General General Date of Admission: 05/31/22 Date of Service: 05/31/22 Chief Complaint: Worsening dyspnea, hypoxia per EMS. 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 Gallagher with outpatient evaluation and again suspected underlying restrictive lung disease secondary to history of poliomyelitis previously with sudden onset on day of presentation while in the shower severe dyspnea and per report increased lower extremity swelling distally especially in his feet prompting EMS call with noted oxygenation at that time 82% prompting transition to the ED for evaluation. Patient denies any recent significant orthopnea or weight gain, cough, upper respiratory type symptoms, fevers or chills. Work-up in the ED included T 98, heart rate 114, BP 134/77, respiratory rate 18, initially 82% on room air with improvement to 97% on 3 L nasal cannula, CBC with WC 6.1, hemoglobin 14, platelet 227 with lymphopenia, D-dimer 0.33, BMP with carbon dioxide 38, BUN/creatinine 17/0.52, glucose 135, troponin 15, BNP 18, chest x-ray with moderate degree dextroconvex scoliosis, stable volume loss of the right hemithorax, mild increased markings at the right lung base suggestive of atelectasis. In the ED patient administered Lasix 40 mg IV x1 secondary to concerns for possible overload although BNP normal range. While in the emergency room just prior to evaluation patient was noted to be more confused than he had been previously although he was able to answer all orientation questions but was frequently leaning forward and rocking and picking in his feet therefore to be cautious especially given increasing hypoxia and oxygen requirement in the ED ABG was obtained and significantly abnormal with pH 7.17, bicarb 43.9, PCO2 120.2, PO2 110 performed on 6 L nasal cannula therefore requested that patient be placed on BiPAP with planned ICU admission instead of initial plan for telemetry. [facility] Medical History Degenerative scoliosis Hypertension Lumbar radicular pain Sleep apnea Tonsillectomy planned Home Medications oxycodone-acetaminophen 5 mg-325 mg tablet 1 tab PO TID pain 04/27/17 [History Last Taken 05/31/22 05:30] snkhsxac-uzq-frxhd acid 300 mcg-lycopene 600 mcg-lutein 300 mcg tablet 1 ea PO DAILY supplement 02/03/20 [History Last Taken 05/31/22] tamsulosin 0.4 mg capsule 0.4 mg PO BID prostate 02/03/20 [History Last Taken 05/31/22 07:30] calcium carbonate 500 mg-vitamin D3 3.125 mcg (125 unit) tablet 1 tab PO DAILY SUPPLEMENT 01/29/21 [History Last Taken 05/31/22] diphenhydramine HCl 25 mg capsule (Benadryl) 25 mg PO QHS PRN Runny Nose 05/31/22 [History Last Taken 05/30/22] losartan 25 mg tablet 25 mg PO DAILY BP 05/31/22 [History Last Taken 05/30/22 22:30] nifedipine 90 mg tablet,extended release 90 mg PO DAILY HEART 05/31/22 [History Last Taken 05/30/22 22:30] venlafaxine 75 mg capsule,extended release 24 hr 75 mg PO DAILY MOOD 05/31/22 [History Last Taken 05/31/22 07:30] Allergy/AdvReac Type Severity Reaction Status Date / Time metronidazole [From Flagyl] AdvReac Nausea/Vom/ Verified 05/31/22 11:43 Diarrhea DECONGESTANTS Allergy TACHYCARDIA Uncoded 05/31/22 11:43 Family History (Updated 05/31/22 @ 21:[address] Stacie Damico MD) Father Myocardial infarction Heart disease Mother Shy-Drager syndrome Other CVA (cerebral vascular accident) Surgical History H/O adenoidectomy H/O spinal fusion Hip fracture, right History of open reduction and internal fixation (ORIF) procedure History of uvulectomy Right tibial fracture Social History household members: spouse housing: house Smoking Status: Never smoker substance use type: does not use ROS ROS Narrative Admission Review of Systems: CONSTITUTIONAL: No weight loss, fever, chills, + weakness or fatigue. HEENT: Eyes: No visual loss, blurred vision, double vision or yellow sclerae. Ears, Nose, Throat: No hearing loss, sneezing, congestion, runny nose or sore throat. SKIN: No rash or itching, lesions, wounds. CARDIOVASCULAR: + Pedal edema. No chest pain, chest pressure or chest discomfort, palpitations, edema, orthopnea, syncopal events. RESPIRATORY: +shortness of breath, No cough or sputum, wheezing, hemoptysis. GASTROINTESTINAL: No anorexia, nausea, vomiting or diarrhea, abdominal pain, melena, BRBPR. GENITOURINARY: No dysuria, frequency, urgency or retention. NEUROLOGICAL: + Confusion. No headache, dizziness, syncope, paralysis, ataxia, numbness or tingling in the extremities, focal weakness, change in bowel or bladder control, seizure. MUSCULOSKELETAL: + muscle, back pain, joint pain or stiffness. HEMATOLOGIC: No anemia, bleeding or bruising. LYMPHATICS: No enlarged nodes. No history of splenectomy. PSYCHIATRIC: No history of depression or anxiety. ENDOCRINOLOGIC: No reports of sweating, cold or heat intolerance. No polyuria or polydipsia. ALLERGIES: No history of asthma, hives, eczema or rhinitis. Vital Signs Vital Signs Vital Signs: 05/31/22 11:43 05/31/22 11:47 05/31/22 11:48 Temperature 98 F Temperature Source Temporal Pulse Rate 114 H Respiratory Rate 18 18 Respiratory Effort Normal Non-Labored Respiratory Depth Normal Respiratory Pattern Normal Blood Pressure 134/77 H Blood Pressure Mean 96 Pulse Ox 82 Oxygen Delivery Method Room Air Room Air Oxygen Flow Rate (L/min) 05/31/22 11:50 Temperature Temperature Source Pulse Rate Respiratory Rate Respiratory Effort Respiratory Depth Respiratory Pattern Blood Pressure Blood Pressure Mean Pulse Ox 97 Oxygen Delivery Method Nasal Cannula Oxygen Flow Rate (L/min) 3 Weight Weight: 152 lb 1.903 oz Body Mass Index (BMI) 25.3 Physical Exam Narrative Physical Examination: General: Awake, alert, oriented x 3 including recent events, person, place, month and year despite hypercapnia but again continued worsening respiratory status with increasing oxygen requirements, remained cooperative, seated upright in the ED bed but was agitated. Skin: Normal color, normal turgor, no icterus, no cyanosis except for mild peripheral stasis skin changes. HEENT: AT/NC, EOMI, PERRLA, dry MM, no carotid bruits or JVD noted. Lungs: Notably diminished, greater bases, mild crackles, no specific rales, rhonchi or wheezing, increased respiratory rate, agitated as noted. Heart: Tachycardic with regular rhythm; no gallop, rub audible. Abdomen: Soft, thin habitus, NTTP, ND, distant normal BS, no HSM. Extremities: No cyanosis, no clubbing, mild distal grajeda and pedal 1+ pitting edema. Neurological: Patient awake, alert, oriented as noted, cognitive function with orientation questions intact however patient acting abnormal compared to his baseline with agitation, rocking and picking; pupils equally reactive to light and accommodation, cranial nerves grossly normal, moving all 4 extremities, no focal deficits, strength severely global decrease secondary to acute presentation and complaints. Psychiatric: Affect appears agitated, no acute evidence of depressive or anxiety feelings. Results Lab / Micro Data Result Diagrams: 05/31/22 13:30 05/31/22 13:30 Labs: Laboratory Results - last 24 hr 05/31/22 13:30: WBC 6.1, RBC 4.58 L, Hgb 14.0, Hct 44.5, MCV 97.2 H, MCH 30.6, MCHC 31.5 L, RDW Std Deviation 50.1 H, RDW Coeff of Larry 14.0, Plt Count 227, MPV 9.3, Immature Gran % (Auto) 0.300, Neut % (Auto) 80.4 H, Lymph % (Auto) 9.2 L, Jay % (Auto) 8.9, Eos % (Auto) 0.5, Baso % (Auto) 0.7, Absolute Neuts (auto) 4.9, Absolute Lymphs (auto) 0.56 L, Nucleated RBC % 0, Differential Comment COMMENT 05/31/22 13:30: D-Dimer Quant (PE/DVT) 0.33 05/31/22 13:30: Sodium 140, Potassium 4.1, Chloride 100, Carbon Dioxide 38.0 H, Anion Gap 2 L, BUN 17, Creatinine 0.52 L, Estim Creat Clear Calc 55.52, Est GFR (MDRD) Af Amer 198, Est GFR (MDRD) Non-Af 164, BUN/Creatinine Ratio 32.6 H, Glucose 135 H, Calcium 9.4, Troponin I High Sens 15 05/31/22 13:30: B-Natriuretic Peptide 18.0 Radiology Impression Chest X-Ray 05/31/22 13:40 IMPRESSION: Moderate degree of dextroconvex scoliosis. Stable volume loss in the right hemithorax. Mild increased markings at the right lung base suggestive of atelectasis. 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 Gallagher with outpatient evaluation and again suspected underlying restrictive lung disease secondary to history of poliomyelitis previously with sudden onset on day of presentation while in the shower severe dyspnea and per report increased lower extremity swelling distally especially in his feet prompting EMS call with noted oxygenation at that time 82% prompting transition to the ED for evaluation. #1. Acute Hypoxic Respiratory Failure, unclear etiology, potentially multifactorial with hypercapnia significantly evident however certainly could be component of progressively worsening restrictive lung disease with severe prior poliomyelitis and significant degenerative scoliosis: Will admit to the ICU, will administer sodium bicarb amps given ABG findings, will maintain BiPAP in place, will plan repeat ABG in approximately 1 hour following transition, given not marked history of orthopnea or recent weight gain we will hold on further IV Lasix but may resume if further concerns arise, will request echocardiogram, although D-dimer is unremarkable we will request CT of the chest to further assess his anatomy, discussed and reviewed case with pulmonary medicine who will evaluate Dr. Monsivais while in the intensive care unit and once patient transitions to the floor when at that time plan placement of consultation with Dr. Gallagher pulmonary medicine whom patient had failed outpatient and is aware of his current presentation and admission, maintain on fall and aspiration precautions, sputum culture if able to produce, urine antigens as well as procalcitonin requested and in addition to full respiratory panel. We will hold on antibiotic therapies however if concerns based on this work-up more notable for potential bacterial infection low threshold to add. #2. Chronic lumbar back pain with radiculopathy, degenerative scoliosis: Greatly likely contributing to patient's underlying restrictive disease, encourage frequent positional changes, therapies will be consulted, case management consulted for discharge planning, will continue patient's home as needed narcotic therapy with hold for sedation. #3. Hypertension: Continue home regimen including losartan, nifedipine, PRN hydralazine. #4. Anxiety and depression: We will continue patient home venlafaxine regimen. #5. LAKISHA: We will continue BiPAP given current present. #6. BPH: We will continue patient on Flomax regimen. #7. GERD: We will maintain on PPI. #8. DVT prophylaxis: SCDs, Lovenox. #9. CODE status: Patient does not have healthcare power of resistor tester nor living will in place. present for discussions. Discussed CODE status at length including difference between FULL code, DNR-CCA and DNR-CC status. Following discussions about the differences in these status, requested Full Code status. Advanced Care Planning Face to Face Time: 17 minutes. Admission Evaluation Time spent evaluating chart, patient history, patient evaluation, care planning and discussion with specialists: 75 minutes. Charges/Coding Visit Charges Inpatient E&M: 50923 Init Hosp L3 Procedures Hospitalists Procedures: 09025 Advncd Care Plan 30 Min
--- NOTE | 2022-05-31 15:16 | ED.VIS.DYS ---
HPI History of Present Illness Chief Complaint: Shortness of Breath Informant: patient and spouse/S.O. Narrative Narrative: Patient is a 77-year-old male with history of restrictive lung disease secondary to polio, scoliosis and obstructive sleep apnea presenting with worsening shortness of breath and leg swelling. Patient states has had some progressive shortness of breath for the past few months and just feels like he cannot get enough air. He is currently undergoing an outpatient work-up with Dr. Frausto, and just had a venous duplex of his legs earlier this week as well as a start of what he describes as an echocardiogram however they had to stop because his heart wall was too thick. While patient was taking a shower today he notes his legs are more swollen and he felt more short of breath. Message was made to call EMS. Patient not wear any home O2. Denies any cough. Is not aware of any weight changes but does not take his weight regularly. No other complaints at this time. [facility] Medical History Degenerative scoliosis Hypertension Lumbar radicular pain Sleep apnea Tonsillectomy planned Home Medications oxycodone-acetaminophen 5 mg-325 mg tablet 1 tab PO TID pain 04/27/17 [History Last Taken 05/31/22 05:30] mvnefqkp-zyc-dovon acid 300 mcg-lycopene 600 mcg-lutein 300 mcg tablet 1 ea PO DAILY supplement 02/03/20 [History Last Taken 05/31/22] tamsulosin 0.4 mg capsule 0.4 mg PO BID prostate 02/03/20 [History Last Taken 05/31/22 07:30] calcium carbonate 500 mg-vitamin D3 3.125 mcg (125 unit) tablet 1 tab PO DAILY SUPPLEMENT 01/29/21 [History Last Taken 05/31/22] diphenhydramine HCl 25 mg capsule (Benadryl) 25 mg PO QHS PRN Runny Nose 05/31/22 [History Last Taken 05/30/22] losartan 25 mg tablet 25 mg PO DAILY BP 05/31/22 [History Last Taken 05/30/22 22:30] nifedipine 90 mg tablet,extended release 90 mg PO DAILY HEART 05/31/22 [History Last Taken 05/30/22 22:30] venlafaxine 75 mg capsule,extended release 24 hr 75 mg PO DAILY MOOD 05/31/22 [History Last Taken 05/31/22 07:30] Allergy/AdvReac Type Severity Reaction Status Date / Time metronidazole [From Flagyl] AdvReac Nausea/Vom/ Verified 05/31/22 11:43 Diarrhea DECONGESTANTS Allergy TACHYCARDIA Uncoded 05/31/22 11:43 Family History Other CVA (cerebral vascular accident) Myocardial infarction Surgical History H/O adenoidectomy H/O spinal fusion Hip fracture, right History of open reduction and internal fixation (ORIF) procedure History of uvulectomy Right tibial fracture Social History household members: spouse housing: house Smoking Status: Never smoker substance use type: does not use ROS ROS ED Constitutional Constitutional ED: Denies chills, fever(s) or sweats Eyes Eyes: Denies change in vision ENT ENT ED: Denies rhinorrhea Cardiovascular Cardiovascular: Denies chest pain or palpitations Respiratory/Chest Respiratory/Chest: Reports dyspnea and dyspnea on exertion; Denies cough Gastrointestinal Gastrointestinal: Denies abdominal pain, nausea or vomiting Musculoskeletal Musculoskeletal: Denies arthralgias or myalgias Integumentary Denies rash Neurologic Neurologic: Denies weakness Hematologic/Lymphatic Hematologic/Lymphatic: Denies easy bleeding or easy bruising EXAM Physical Exam Const Vital Signs: 05/31/22 11:43 05/31/22 11:47 05/31/22 11:48 Temperature 98 F Temperature Source Temporal Pulse Rate 114 H Respiratory Rate 18 18 Respiratory Effort Normal Non-Labored Respiratory Depth Normal Respiratory Pattern Normal Blood Pressure 134/77 H Blood Pressure Mean 96 Pulse Ox 82 Oxygen Delivery Method Room Air Room Air Oxygen Flow Rate (L/min) 05/31/22 11:50 05/31/22 15:04 Temperature Temperature Source Pulse Rate 116 H Respiratory Rate 29 H Respiratory Effort Respiratory Depth Respiratory Pattern Blood Pressure 183/95 H Blood Pressure Mean 124 Pulse Ox 97 93 Oxygen Delivery Method Nasal Cannula Nasal Cannula Oxygen Flow Rate (L/min) 3 3 Positive well nourished and well developed General Appearance ED: well developed and NAD HEENT Reports moist mucous membranes Eyes PERRL and EOMs intact bilaterally Neck supple Neck Narrative: + JVD Chest Wall Chest Narrative: scoliosis and deformity of the thoracic chest wall with significantly diminished movement of the right chest Resp Resp Narrative: Diminished breath sounds at the bases bilaterally. Questionable crackles at the left lung base. Cardio regular rhythm Rate: tachycardic GI non-tender and non-distended Back/Spine no CVA tenderness Extremity General Extremety ED: Yes edema General Extremity: edema Neuro oriented x3 Neuro Narrative: No focal deficits Sensorium / Orientation: alert Motor Exam: Negative for general weakness Psych mental status grossly normal Mood & Affect: anxious Skin no wounds MDM MDM MDM Narrative Medical decision making narrative: Evaluated for increased work of breathing. He has acute hypoxia for EMS. He he does have JVD on exam and differential includes fluid overload, new onset of CHF, cardiomyopathy, pulmonary emboli, restrictive lung disease and pulmonary fibrosis. EMS report independently reviewed and patient was 85% on room air upon arrival. He went up to 96% with supplemental oxygen. He is also tachycardic with a heart rate of 121 and then 115. Patient is requiring 3 L of oxygen in the emergency room well with improvement of his work of breathing and his hypoxia. Patient's venous duplex from 05/26/2022 independently reviewed by myself which did not show any acute process. It looks like he also had a sniff test ordered which showed normal translation of the right and left hemidiaphragm and no evidence of paralysis. I do not see an echocardiogram that was performed. Lab work is largely unremarkable including high-sensitivity troponin, D-dimer, CBC and BMP. His BNP is 18. The patient is diuresed with some IV Lasix. His chest x-ray shows moderate degree of dextro convex scoliosis and mild increased markings in the right lung base suggestive of atelectasis. This is interpreted by myself as well as radiology. Went to reevaluate the patient and go over results and patient is becoming more tachycardic and tachypneic. He is feeling more short of breath. End-tidal CO2 was checked and it is significantly elevated. Patient placed on BiPAP and an ABG was obtained. ABG shows respiratory acidosis. Given patient's significant respiratory acidosis with unknown obvious cause will be admitted to the ICU. Patient is given IV Lasix. Lab Data Attestation: I reviewed the patient's lab results. Labs: Laboratory Results - last 24 hr 05/31/22 05/31/22 05/31/22 13:30 13:30 13:30 WBC 6.1 RBC 4.58 L Hgb 14.0 Hct 44.5 MCV 97.2 H MCH 30.6 MCHC 31.5 L RDW Std Deviation 50.1 H RDW Coeff of Larry 14.0 Plt Count 227 MPV 9.3 Immature Gran % (Auto) 0.300 Neut % (Auto) 80.4 H Lymph % (Auto) 9.2 L Howard % (Auto) 8.9 Eos % (Auto) 0.5 Baso % (Auto) 0.7 Absolute Neuts (auto) 4.9 Absolute Lymphs (auto) 0.56 L Nucleated RBC % 0 Differential Comment COMMENT D-Dimer Quant (PE/DVT) 0.33 Sodium 140 Potassium 4.1 Chloride 100 Carbon Dioxide 38.0 H Anion Gap 2 L BUN 17 Creatinine 0.52 L Estim Creat Clear Calc 55.52 Est GFR (MDRD) Af Amer 198 Est GFR (MDRD) Non-Af 164 BUN/Creatinine Ratio 32.6 H Glucose 135 H Calcium 9.4 Troponin I High Sens 15 B-Natriuretic Peptide 05/31/22 13:30 WBC RBC Hgb Hct MCV MCH MCHC RDW Std Deviation RDW Coeff of Larry Plt Count MPV Immature Gran % (Auto) Neut % (Auto) Lymph % (Auto) Howard % (Auto) Eos % (Auto) Baso % (Auto) Absolute Neuts (auto) Absolute Lymphs (auto) Nucleated RBC % Differential Comment D-Dimer Quant (PE/DVT) Sodium Potassium Chloride Carbon Dioxide Anion Gap BUN Creatinine Estim Creat Clear Calc Est GFR (MDRD) Af Amer Est GFR (MDRD) Non-Af BUN/Creatinine Ratio Glucose Calcium Troponin I High Sens B-Natriuretic Peptide 18.0 Radiography Chest X-Ray - ED: 1 View, Read by ED Physician, Read by Radiologist and No Acute Disease Diagnostic Testing: Clinical Impression(s) from Imaging Studies Chest X-Ray 05/31/22 13:40 IMPRESSION: Moderate degree of dextroconvex scoliosis. Stable volume loss in the right hemithorax. Mild increased markings at the right lung base suggestive of atelectasis. Electronically Signed: Jv Burrows MD at 14:05 EST , Rhythm Strip Rhythm Strip: Sinus Tach Rate: 116 Ectopy: None EKG Initial EKG: Attestation: I personally reviewed and interpreted this EKG as follows: Interpretation: Sinus Tachycardia Comments: Sinus tachycardia rate of 116 bpm Left axis deviation Biatrial enlargement Normal ST segments Compared to prior EKG on 01/21/2022, no significant change Critical Care Time Critical Care Time: Yes Critical care time (excluding procedures): 30-74 minutes, Discussing w/Patient &/or Family/Horse Stud Manager, Arranging Admission or Transfer and Performing Direct Patient Care at Bedside Discharge Plan Triage Chief Complaint: Shortness of Breath ED Provider: Donna Zimmerman Dx/Rx/DC Orders Clinical Impression: Acute on chronic respiratory failure with hypoxia and hypercapnia, Restrictive lung disease due to polio Primary Care Provider: Luis Medina Disposition Disposition: Acute Care Hospital [facility]
[2022-05-31] MEDS: Furosemide 40 MG/4 ML Vial IV (15:28)
--- NOTE | 2022-05-31 15:34 | ED.RN ---
RN CALLED TO ROOM FOR PT NOT ACTING RIGHT. PT A & O X 3 BUT NOW PULLING GOWN OFF AND STATES HE IS JUST TIRED. PER , PT SOMETIMES SLEEPS DURING THE DAY AND USES CPAP. BGS 157, OXYGEN TURNED TO 4L. CAPNOGRAPHY NC APPLIED AND CO2 62. DR HOOVER AND GALLITO MADE AWARE. ABG AND BIPAP ORDERED AT THIS TIME
[2022-05-31 15:50] LABS: Bedside Glucose 157 mg/dL (74-106)
[2022-05-31 15:56] LABS: Allen Test Positive; Base Excess 15 mmol/L (-2 to +2); Bicarbonate 43.9 mmol/L (22-26); Blood Gas Specimen Type ART; O2 Delivery Device Cannula; PO2 110 mmHG (75-100); SITE R Radial; SO2 96 % (95-99); Total Carbon Dioxide 48 mmol/L; pCO2 120.2 mmHg (35-45); pH 7.17 (7.35-7.45)
--- NOTE | 2022-05-31 16:58 | CT_ITS ---
STUDY: CTA CHEST REASON FOR EXAM: Male, 77 years old. He is treated for hypertension prior polio. Dyspnea for 2 months. Now worsening. Question PE. RADIATION DOSAGE (If Supplied By Facility): CTDIvol = ( 16.46 ) mGy, DLP = ( 530.07 ) mGycm TECHNIQUE: The examination was performed with the intravenous administration of IV 100mL Isovue-370. Post-processing of the angiographic images was performed, with multiplanar reformation and 3D reconstruction. Individualized dose optimization techniques were used for this CT. COMPARISON: Chest, May 31, 2022. CT of the chest without contrast, May 13, 2022. FINDINGS: Normal enhancement of the main pulmonary artery and right pulmonary arteries. 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 Normal enhancement of the bilateral peripheral pulmonary arteries. There is no demonstrated pulmonary embolism. Atherosclerotic tortuosity of the thoracic aorta without aneurysm. There is no demonstrated aortic dissection. The heart is normal in size. There is pericardial thickening versus small pericardial effusion. Mediastinum is displaced into the left chest due to scoliosis. Normal mediastinum. Normal hilar regions. Normal visualized trachea and bronchi. The lungs are well expanded. Normal pulmonary parenchyma. Normal pleura. There is deformity of the chest wall due to marked dextroscoliosis of the thoracic spine. Soft tissues and chest wall are grossly normal. Scoliosis and degenerative changes of the thoracic spine. Normal visualized upper abdomen. CT/CTA Chest W/WO Contrast IMPRESSION: 1. No evidence of pulmonary emboli. 2. Again seen is some focal dilatation of the distal left main pulmonary artery unchanged from the prior CT. 3. No aortic dissection or aneurysm. 4. Pericardial effusion. 5. No acute pulmonary disease. 6. Marked abnormality of the chest wall due to severe dextroscoliosis of the thoracic spine. Electronically Signed: Bryon Leal DO at 21:15 EST ,
--- NOTE | 2022-05-31 17:06 | ECHOD_ITS ---
Reason For Study: CHF Procedure This was a 2D Doppler, Color Flow transthoracic echocardiogram. The study was technically difficult. Due to arrhythmia. Exam performed portable in ICU/CCU. Left Ventricle Normal LV size. The estimated ejection fraction is 70 %. No evidence for diastolic dysfunction. No regional wall motion abnormalities noted. Right Ventricle Normal RV size. Normal systolic function. Atria Normal left atrium. Normal right atrium. No doppler evidence for ASD. Mitral Valve There is no mitral valve stenosis. No mitral valve insufficiency. Tricuspid Valve There is no tricuspid stenosis. Trivial tricuspid valve insufficiency. Unable to estimate RV systolic pressure due to insufficient tricuspid regurgitant envelope. Aortic Valve Trisinus/trileaflet aortic valve. There is no aortic stenosis. No aortic valve insufficiency. Pulmonic Valve There is no pulmonic valvular stenosis. No pulmonic valve insufficiency. Great Vessels Normal aortic root. Pericardium/Pleural Small pericardial effusion. MMode/2D Measurements & Calculations LVIDd: 3.8 cm IVSd: 0.95 cm Ao root diam: 3.6 cm LVIDs: 2.5 cm LVPWd: 0.95 cm FS: 35.6 % LAV(MOD-bp): 37.2 ml LA A4 area: 14.4 cm2 LA dimension(2D): 4.2 cm LAV(MOD-bp) Indexed: 21.7 ml/m2 LAV(MOD-sp2): 39.1 ml LAV(MOD-sp4): 34.2 ml RA A4 area: 18.2 cm2 Doppler Measurements & Calculations MV E max sophie: 122.9 cm/sec Ao V2 max: 145.4 cm/sec LV V1 max: 135.3 cm/sec Ao max P.5 mmHg LV V1 max P.3 mmHg Ao V2 mean: 103.9 cm/sec LV V1 mean P.5 mmHg Ao mean P.9 mmHg LV V1 mean: 101.5 cm/sec Ao V2 VTI: 27.2 cm LV V1 VTI: 26.3 cm AV (velocity ratio): 0.97 PA V2 max: 139.0 cm/sec TR max sophie: 291.9 cm/sec TR max P.1 mmHg ECHO/Echo Complete Interpretation Summary The estimated ejection fraction is 70 %. No evidence for diastolic dysfunction. Small pericardial effusion. Ordering Physician: Stacie Damico Referring Physician: Luis Medina Performed By: Kaci Dixon, KATIE, RVT
[2022-05-31] MEDS: Sodium Bicarbonate 8.4% 50 ML Syringe 50 MEQ IV (17:42)
[2022-05-31 18:06] LABS: Magnesium 1.8 mg/dL (1.6-2.6); Troponin-I HS 17 pg/mL (3.0-78.0)
[2022-05-31] MEDS: Ipratropium/Albuterol Sulfate 3 ML AMPUL.NEB INHALATION (18:50)
[2022-05-31 19:11] LABS: Troponin-I HS 16 pg/mL (3.0-78.0)
[2022-05-31 19:17] LABS: Procalcitonin 0.07 ng/mL (0.00-0.09)
[2022-05-31 21:31] LABS: Allen Test Positive; Base Excess 23 mmol/L (-2 to +2); Bicarbonate 49.8 mmol/L (22-26); Blood Gas Specimen Type ART; Comment avaps; FI02 50; PEEP 8; PO2 143 mmHG (75-100); RR 16; SITE L Radial; SO2 99 % (95-99); Total Carbon Dioxide > 50 mmol/L; Vt 450; pCO2 107.4 mmHg (35-45); pH 7.27 (7.35-7.45)
[2022-05-31] MEDS: oxyCODONE 5 MG Tablet PO (22:08)
[2022-05-31] MEDS: NIFEdipine 90 MG Tablet PO (22:08)
[2022-05-31] MEDS: Losartan Potassium 25 MG Tablet PO (22:08)
[2022-05-31] MEDS: Tamsulosin HCl 0.4 MG Capsule PO (22:08)
[2022-05-31] MEDS: Acetaminophen 325 MG Tablet 650 MG PO (22:09)
[2022-06-01] VITALS (15 sets, daily range): BP systolic 90–123; BP diastolic 48–74; PULSE 90–112; RESP 14–29; TEMP 36.7–37.1; O2SAT 22–98
[2022-06-01 04:30] LABS: Absolute Lymphocyte Count 0.54 X10^3/uL (0.83-4.51); Absolute Neutrophil Count 4.6 X10^3/uL (2.0-7.7); Basophil# 0.03 X10^3/uL; Basophil% 0.5 % (0-1); Eosinophil# 0.01 X10^3/uL; Eosinophils% 0.2 % (0-5); Hematocrit 40.9 % (40-54); Hemoglobin 12.6 g/dL (13.0-16.5); Lymphocyte # 0.54 X10^3/ul (0.83-4.51); Lymphocyte % 9.3 % (19-41); Mean Corp Hgb Conc 30.8 g/dL (32-36); Mean Corpuscular Hgb 30.3 pg (27.0-32.0); Mean Corpuscular Volume 98.3 fL (80-94); Mean Platelet Vol. 9.6 fl (6.2-12.0); Monocyte# 0.62 X10^3/uL; Monocyte% 10.6 % (0-10); NRBC Flagged by Analyzer 0 % (0-5); Neutrophil # 4.61 X10^3/uL (2.7-7.7); Neutrophil % 79.1 % (47-70); POSITIVE DIFFERENTIAL YES; Platelet Count 226 K/mm3 (150-450); RBC Distribution Width CV 14.1 % (11.6-14.6); RBC Distribution Width SD 51.3 fl (35.1-43.9); Red Blood Count 4.16 M/mm3 (4.6-6.2); White Blood Count 5.8 K/mm3 (4.4-11.0)
[2022-06-01 04:39] LABS: Differential Indicated SCAN CRITERIA MET
[2022-06-01 04:58] LABS: AST(SGOT) 19 U/L (15-37); Alanine Aminotransfer ALT/SGPT 29 U/L (16-61); Alkaline Phosphatase 52 U/L (45-117); Anion Gap 5 (5-15); BUN 19 mg/dL (7-18); BUN/Creat Ratio 28.5 RATIO (10-20); Calcium,Total 8.5 mg/dL (8.5-10.1); Chloride 95 mmol/L (98-107); Cholesterol 158 mg/dL (200); Creatinine, Serum 0.67 mg/dL (0.70-1.30); EST Glomerular Filtration Rate 124 mL/min (>60); Est Glom Filt Rate - Afr Amer 150 mL/min (>60); Estimated Creatinine Clearance 53.44 ml/min; Globulin 2.9 g/dL (2.2-4.2); Glucose 78 mg/dL (74-106); High Density Lipoprotein 74 mg/dL; Potassium 3.9 mmol/L (3.5-5.1); Protein, Total 5.9 g/dL (6.4-8.2); Sodium Level 142 mmol/L (136-145); Triglycerides 45 mg/dL; Very Low Density Lipoprotein 9 mg/dL (5-40)
--- NOTE | 2022-06-01 06:04 | CON.PCM.CC_ITS ---
Assessment & Plan Assessment/Plan (1) Acute respiratory failure with hypoxia: PLAN: Plan RECOMMENDATIONS: 1. Continue AVAPS therapy with naps and nightly. 2. Obtain echocardiogram. 3. Discontinue scheduled bronchodilators. 4. Continue appropriate DVT prophylaxis. 5. Encourage incentive spirometer use and mobilize patient as tolerated. 6. The patient is medically stable for transfer out of the intensive care unit. IMPRESSIONS: 1. Acute respiratory failure with hypercapnia and hypoxemia The patient does appear to to have baseline CO2 retention in the setting of restrictive lung mechanics, likely related to his significant scoliosis and history of poliomyelitis. He is currently being followed by Dr. Gallagher on an outpatient basis. Recent PFTs confirmed a moderate restrictive impairment. 6- minute walk test failed to demonstrate need for supplemental oxygen with exertion. CT imaging of the chest failed to demonstrate any significant acute cardiopulmonary process. In light of the patient's presenting symptoms, I agree with obtaining an echocardiogram. While the patient does have a history of sleep apnea and is currently prescribed nocturnal CPAP therapy, he may eventually need to be transition to some form of AVAPS therapy to provide additional ventilatory support on an outpatient basis. However, I will defer this decision to his primary land law examiner. I would plan to continue to wean supplemental oxygen as tolerated and encourage incentive spirometer use and early mobilization. 2. History of obstructive sleep apnea Continue nocturnal PAP therapy with naps and nightly. 3. History of chronic lumbar back pain/degenerative scoliosis/anxiety/depression/GERD Complicates care, management, recovery and prognosis. Continue home medications as indicated. This note was generated with qunb dictation software. It may contain incorrect words, spelling, and punctuation that were not noted in checking the note before signing. HPI Consult Data Date of Consult: 06/01/22 HPI Narrative Reason for Consultation: Respiratory failure HPI Narrative: The patient is a 77-year-old male, with a history as outlined below, who presented to the emergency department via EMS on May 31 with shortness of breath. The patient has reported history of restrictive lung disease related to scoliosis and obstructive sleep apnea. The patient is currently being followed by Dr. Gallagher of pulmonary medicine on an outpatient basis with clinical concern for underlying restrictive lung disease related to a history of poliomyelitis and scoliosis. The patient is a lifelong non-smoker without any significant secondhand smoke exposure. He does not utilize supplemental oxygen at his baseline. He does report a history of obstructive sleep apnea, for which he is currently prescribed nocturnal CPAP therapy. He does report compliance with his nocturnal PAP therapy. 6-minute walk test completed in January 2022 failed to demonstrate the need for supplemental oxygen with exertion. Pulmonary function studies from November 2021 demonstrated a moderate restrictive ventilatory impairment. On presentation to the emergency department, the patient was noted to be afebrile and hemodynamically stable. He was initially documented to be saturating 82% on room air. Initial laboratory evaluation revealed no evidence of a leukocytosis. D-dimer was unremarkable. Chemistry profile was notable for a bicarbonate of 38 and normal creatinine. Preliminary arterial blood gas demonstrated a pH of 7.17 with a PCO2 of 120 and PO2 of 110. CTA chest showed no evidence for pulmonary embolism. No active pulmonary disease was identified. BNP and troponin were unremarkable. Prior lower extremity Doppler study from May 26 demonstrated no evidence of DVT. [facility] Medical History Degenerative scoliosis Hypertension Lumbar radicular pain Sleep apnea Tonsillectomy planned Home Medications oxycodone-acetaminophen 5 mg-325 mg tablet 1 tab PO TID pain 04/27/17 [History Last Taken 05/31/22 05:30] ipiswxcr-rue-drsqp acid 300 mcg-lycopene 600 mcg-lutein 300 mcg tablet 1 ea PO DAILY supplement 02/03/20 [History Last Taken 05/31/22] tamsulosin 0.4 mg capsule 0.4 mg PO BID prostate 02/03/20 [History Last Taken 05/31/22 07:30] calcium carbonate 500 mg-vitamin D3 3.125 mcg (125 unit) tablet 1 tab PO DAILY SUPPLEMENT 01/29/21 [History Last Taken 05/31/22] diphenhydramine HCl 25 mg capsule (Benadryl) 25 mg PO QHS PRN Runny Nose 05/31 [History Last Taken 05/30/22] losartan 25 mg tablet 25 mg PO DAILY BP 05/31/22 [History Last Taken 05/30/22 22:30] nifedipine 90 mg tablet,extended release 90 mg PO DAILY HEART 05/31/22 [History Last Taken 05/30/22 22:30] venlafaxine 75 mg capsule,extended release 24 hr 75 mg PO DAILY MOOD 05/31/22 [History Last Taken 05/31/22 07:30] Allergy/AdvReac Type Severity Reaction Status Date / Time metronidazole [From Flagyl] AdvReac Nausea/Vom/ Verified 05/31/22 11:43 Diarrhea DECONGESTANTS Allergy TACHYCARDIA Uncoded 05/31/22 11:43 Family History (Updated 05/31/22 @ 21:[address] Stacie Damico MD) Father Myocardial infarction Heart disease Mother Shy-Drager syndrome Other CVA (cerebral vascular accident) Surgical History H/O adenoidectomy H/O spinal fusion Hip fracture, right History of open reduction and internal fixation (ORIF) procedure History of uvulectomy Right tibial fracture Social History household members: spouse housing: house Smoking Status: Never smoker substance use type: does not use ROS ROS Narrative 10 systems reviewed with pertinent positives as noted in the HPI above. Physical Exam Const alert, oriented x3 and no apparent distress General Appearance: cooperative HEENT normocephalic, head/scalp atraumatic and moist oral mucous membranes Eyes PERRL, EOMs intact bilaterally and conjunctivae normal Neck supple General: trachea midline Resp normal respiratory effort Resp Narrative: Diminished air movement, right greater than left. No wheezes, rales or rhonchi. Cardio regular rate and regular rhythm GI normal to inspection, nondistended, normoactive bowel sounds Back/Spine Back/Spine Narrative: Significant scoliotic curvature of the spine Extremity no clubbing, cyanosis or edema Skin no rashes or lesions noted Neuro oriented x3, CN's II-XII intact bilaterally, moves all extremities and no focal motor deficits Psych cooperative and affect normal Lab / Micro Data Result Diagrams: 06/01/22 04:20 06/01/22 04:20 Labs: Laboratory Results - last 24 hr 05/31/22 13:30: WBC 6.1, RBC 4.58 L, Hgb 14.0, Hct 44.5, MCV 97.2 H, MCH 30.6, MCHC 31.5 L, RDW Std Deviation 50.1 H, RDW Coeff of Larry 14.0, Plt Count 227, MPV 9.3, Immature Gran % (Auto) 0.300, Neut % (Auto) 80.4 H, Lymph % (Auto) 9.2 L, [place] % (Auto) 8.9, Eos % (Auto) 0.5, Baso % (Auto) 0.7, Absolute Neuts (auto) 4.9, Absolute Lymphs (auto) 0.56 L, Nucleated RBC % 0, Differential Comment COMMENT 05/31/22 13:30: D-Dimer Quant (PE/DVT) 0.33 05/31/22 13:30: Sodium 140, Potassium 4.1, Chloride 100, Carbon Dioxide 38.0 H, Anion Gap 2 L, BUN 17, Creatinine 0.52 L, Estim Creat Clear Calc 55.52, Est GFR (MDRD) Af Amer 198, Est GFR (MDRD) Non-Af 164, BUN/Creatinine Ratio 32.6 H, Glucose 135 H, Calcium 9.4, Troponin I High Sens 15 05/31/22 13:30: B-Natriuretic Peptide 18.0 05/31/22 15:29: POC Glucose 157 H 05/31/22 17:35: Magnesium 1.8, Troponin I High Sens 17 05/31/22 18:45: Troponin I High Sens 16 05/31/22 18:45: Procalcitonin 0.07 06/01/22 04:20: WBC 5.8, RBC 4.16 L, Hgb 12.6 L, Hct 40.9, MCV 98.3 H, MCH 30.3, MCHC 30.8 L, RDW Std Deviation 51.3 H, RDW Coeff of Larry 14.1, Plt Count 226, MPV 9.6, Immature Gran % (Auto) 0.300, Neut % (Auto) 79.1 H, Lymph % (Auto) 9.3 L, [place] % (Auto) 10.6 H, Eos % (Auto) 0.2, Baso % (Auto) 0.5, Absolute Neuts (auto) 4.6, Absolute Lymphs (auto) 0.54 L, Nucleated RBC % 0 06/01/22 04:20: Sodium 142, Potassium 3.9, Chloride 95 L, Carbon Dioxide 42.0 H, Anion Gap 5, BUN 19 H, Creatinine 0.67 L, Estim Creat Clear Calc 53.44, Est GFR (MDRD) Af Amer 150, Est GFR (MDRD) Non-Af 124, BUN/Creatinine Ratio 28.5 H, Glucose 78, Calcium 8.5, Total Bilirubin 0.50, AST 19, ALT 29, Alkaline Phosphatase 52, Total Protein 5.9 L, Albumin 3.0 L, Globulin 2.9, Albumin/Globulin Ratio 1.0, Triglycerides 45, Cholesterol 158, LDL Cholesterol 75, VLDL Cholesterol 9, HDL Cholesterol 74, TSH 0.50 Micro: Microbiology 05/31/22 18:50 Mucosa - Nasopharyngeal Respiratory Panel (PCR) - Final ABG Data ABG results: ABG 05/31/22 05/31/22 15:52 17:56 Specimen Type ART ART Sample Site R Radial L Radial pH 7.17 L* 7.27 L Bicarbonate Actual 43.9 H 49.8 H Total CO2 48 > 50 Base Excess 15 H 23 H O2 Saturation 96 99 O2 % 50 ABG pCO2 120.2 H* 107.4 H* ABG pO2 110 H 143 H Stephane Test Positive Positive Respiration Rate 16 O2 Delivery Device Cannula Liter Flow 6.0 Tidal Volume 450 POC PEEP 8 Crit Call To/Read Back Yes Yes Blood Gas Notified Whom laura Betancourt Clinical Comments avaps Rhythm Strip Rhythm Strip: Sinus Tach Rate: 116 Ectopy: None Radiology Impression Chest X-Ray 05/31/22 13:40 IMPRESSION: Moderate degree of dextroconvex scoliosis. Stable volume loss in the right hemithorax. Mild increased markings at the right lung base suggestive of atelectasis. Electronically Signed: Jv Burrows MD at 14:05 EST , Chest CTA 05/31/22 16:58 IMPRESSION: 1. No evidence of pulmonary emboli. 2. Again seen is some focal dilatation of the distal left main pulmonary artery unchanged from the prior CT. 3. No aortic dissection or aneurysm. 4. Pericardial effusion. 5. No acute pulmonary disease. 6. Marked abnormality of the chest wall due to severe dextroscoliosis of the thoracic spine. Electronically Signed: Bryon Leal DO at 21:15 EST , Charges/Coding Visit Charges Inpatient E&M: 03222 Init Hosp L3
[2022-06-01] MEDS: oxyCODONE 5 MG Tablet PO ×2 (06:17→20:53)
[2022-06-01] MEDS: Acetaminophen 325 MG Tablet 650 MG PO (06:17)
[2022-06-01 07:20] LABS: Allen Test Positive; Base Excess 18 mmol/L (-2 to +2); Bicarbonate 44.1 mmol/L (22-26); Blood Gas Specimen Type ART; O2 Delivery Device Cannula; PO2 93 mmHG (75-100); SITE L Radial; SO2 96 % (95-99); Total Carbon Dioxide 47 mmol/L; pCO2 89.3 mmHg (35-45)
[2022-06-01] MEDS: Ipratropium/Albuterol Sulfate 3 ML AMPUL.NEB INHALATION (07:34)
[2022-06-01 09:47] LABS: Hemoglobin A1c 6.1 % (3.8-5.6)
[2022-06-01] MEDS: Tamsulosin HCl 0.4 MG Capsule PO ×2 (10:42→20:54)
[2022-06-01] MEDS: Venlafaxine XR 75 MG Capsule PO (10:42)
[2022-06-01] MEDS: Enoxaparin 40 MG/0.4 ML Syringe SC (10:42)
[2022-06-01] MEDS: Senna Tablet 1 TABLET PO (14:28)
--- NOTE | 2022-06-01 14:38 | PN.HOSP_ITS ---
Reason for Visit Reason for Visit: Diagnoses Acute respiratory failure with hypoxia (05/31/22) Subjective Subjective Patient seen and examined. He was admitted with a complaint of acute shortness of breath. He is off BIPAP and feels much better now. Review of systems is otherwise negative. Objective Data Objective Data Vital Signs: Vital Signs Temp Pulse Resp BP Pulse Ox O2 Del Method O2 Flow Rate 98.5 F 112 H 20 H 116/72 96 Nasal Cannula 2 06/01/22 14:00 06/01/22 14:00 06/01/22 14:00 06/01/22 14:00 06/01/22 14:00 06/01/22 14:00 06/01/22 14:12 FiO2 35 06/01/22 06:00 Oxygen Flow Rate (L/min) 2 Oxygen Delivery Method Nasal Cannula Weight: 142 lb 10.225 oz Body Mass Index (BMI) 23.8 Intake & Output: Intake and Output for Last 24 Hours 05/30/22 05/31/22 06/01/22 23:59 23:59 23:59 Intake Total 260 / 260 470 / 470 Output Total 1100 / 1500 800 / 800 Balance -840 / -1240 -330 / -330 Lab / Micro Data Result Diagrams: 06/01/22 04:20 06/01/22 04:20 Labs: Laboratory Results - last 24 hr 05/31/22 15:29: POC Glucose 157 H 05/31/22 17:35: Magnesium 1.8, Troponin I High Sens 17 05/31/22 18:45: Troponin I High Sens 16 05/31/22 18:45: Procalcitonin 0.07 06/01/22 04:20: WBC 5.8, RBC 4.16 L, Hgb 12.6 L, Hct 40.9, MCV 98.3 H, MCH 30.3, MCHC 30.8 L, RDW Std Deviation 51.3 H, RDW Coeff of Larry 14.1, Plt Count 226, MPV 9.6, Immature Gran % (Auto) 0.300, Neut % (Auto) 79.1 H, Lymph % (Auto) 9.3 L, [place] % (Auto) 10.6 H, Eos % (Auto) 0.2, Baso % (Auto) 0.5, Absolute Neuts (auto) 4.6, Absolute Lymphs (auto) 0.54 L, Nucleated RBC % 0 06/01/22 04:20: Sodium 142, Potassium 3.9, Chloride 95 L, Carbon Dioxide 42.0 H, Anion Gap 5, BUN 19 H, Creatinine 0.67 L, Estim Creat Clear Calc 53.44, Est GFR (MDRD) Af Amer 150, Est GFR (MDRD) Non-Af 124, BUN/Creatinine Ratio 28.5 H, Glucose 78, Calcium 8.5, Total Bilirubin 0.50, AST 19, ALT 29, Alkaline Phosphatase 52, Total Protein 5.9 L, Albumin 3.0 L, Globulin 2.9, Albumin/Globulin Ratio 1.0, Triglycerides 45, Cholesterol 158, LDL Cholesterol 75, VLDL Cholesterol 9, HDL Cholesterol 74, TSH 0.50 06/01/22 04:20: Hemoglobin A1c 6.1 H Micro: Microbiology 05/31/22 18:50 Mucosa - Nasopharyngeal Respiratory Panel (PCR) - Final ABG Data ABG results: ABG 05/31/22 05/31/22 06/01/22 15:52 17:56 07:04 Specimen Type ART ART ART Sample Site R Radial L Radial L Radial pH 7.17 L* 7.27 L 7.30 L Bicarbonate Actual 43.9 H 49.8 H 44.1 H Total CO2 48 > 50 47 Base Excess 15 H 23 H 18 H O2 Saturation 96 99 96 O2 % 50 ABG pCO2 120.2 H* 107.4 H* 89.3 H* ABG pO2 110 H 143 H 93 Stephane Test Positive Positive Positive Respiration Rate 16 O2 Delivery Device Cannula Cannula Liter Flow 6.0 3.0 Tidal Volume 450 POC PEEP 8 Crit Call To/Read Back Yes Yes Yes Blood Gas Notified Whom laura MACK Clinical Comments avaps Radiography Diagnostic Testing: Radiology Impression Chest CTA 05/31/22 16:58 IMPRESSION: 1. No evidence of pulmonary emboli. 2. Again seen is some focal dilatation of the distal left main pulmonary artery unchanged from the prior CT. 3. No aortic dissection or aneurysm. 4. Pericardial effusion. 5. No acute pulmonary disease. 6. Marked abnormality of the chest wall due to severe dextroscoliosis of the thoracic spine. Electronically Signed: Bryon Leal DO at 21:15 EST Reading Location ID and State: [address] [place] [address] Tel [phone], Service support , Echocardiogram 05/31/22 17:06 Interpretation Summary The estimated ejection fraction is 70 %. No evidence for diastolic dysfunction. Small pericardial effusion. Ordering Physician: Stacie Damico Referring Physician: Luis Medina Performed By: Kaci Dixon, KATIE, RVT Rhythm Strip Rhythm Strip: Sinus Tach Rate: 116 Ectopy: None Physical Exam Const alert, oriented x3 and no apparent distress HEENT head/scalp atraumatic and moist oral mucous membranes Head and Scalp: normocephalic Mouth: oral and palatal mucosa normal Eyes PERRL, EOMs intact bilaterally and conjunctivae normal Neck no lymphadenopathy and supple Resp Resp Narrative: mildly diminished breath sounds bibasally, no wheezes or crackles. On 2L of oxygen. Cardio regular rate, regular rhythm, S1 normal heart sound, S2 normal heart sound and no murmurs GI normal to inspection, nondistended, normoactive bowel sounds, soft to palpation, non-tender and non-distended Extremity normal to inspection, full ROM and no clubbing, cyanosis or edema Neuro oriented x3, CN's II-XII intact bilaterally, moves all extremities and no focal motor deficits Sensorium / Orientation: awake and alert Motor Exam: strength 5/5 throughout Psych affect normal Assessment & Plan Assessment/Plan (1) Acute respiratory failure with hypoxia: PLAN: Plan #Acute hypoxic and hypercapnic respiratory failure * patient known to have restrictive lung disease and scoliosis due to history of polio * ABG showed pH of 7.17, pCO2 of 120 and pO2 of 110. * BNP was not elevated and troponins were not elevated. * repeat ABG this morning showed pH of 7.,3, pCO2 of 89.3 and pO2 of 93. * CT chest showed no acute cardiopulmonary process * he was initially on BIPAP on admission, but now off BIPAP and now on 2L of oxygen. * critical care on board * 2D echo ordered and pending * breathing treatment with bronchodilators * titrate oxygen to maintain sats >90% * #History of LAKISHA: on CPAP qhs #History of scoliosis and chronic lumbar back pain * stable. * PT.OT on board * #GERD: on PPI #Hypertension: on losartan and nifedipine. #Anxiety and depression: on venlafaxine DVT prophylaxis:lovenox Charges/Coding Visit Charges Inpatient E&M: 73917 Subs Hosp L2
--- NOTE | 2022-06-01 15:00 | CASEMGMT ---
KRISHNA ABBOTT DC Planning Assessment: Face to Face with patient for initial transition planning/care coordination assessment. Pt alert, Ox4, sitting up in chair. KRISHNA ABBOTT introduced self and role at [facility], pt voices understanding and is agreeable to participating in assessment with his present.? Care providers, pharmacy,?and demographics verified. Admittin dx: Hypoxia, restrictive lung disease PCP: Adam Specialists: Aileen (pulmonology), Zbigniew (pain mgmt), Radha (urology) Preferred Pharmacy: [facility] Insurance: [employer] [facility] Prescription Benefit:?yes Living Will/HPOA: No but is interested in completing these. MARISELA Juan notified LNOK: Karen Living Arrangements: Pt lives with his in single story home with two small steps to enter. Pt is independent with ADLs and uses crutches to ambulate. Pt's assists with household tasks. Transportation: Pt's able to assist with transportation DME: crutches, step in shower, shower chair, grab bars, hand held shower, lift chair, bipap from [employer], pulse oximeter HHC: none SNF: TCU ? Plan: Pt plans to return home with the support of his at discharge. Discussed possible need for home O2. Reviewed O2 providers available and pt and his agree that [facility] is their first choice. Will continue to monitor and assist with DC needs as determined. Beatriz Campos RN CM
[2022-06-01] MEDS: Ensure Plus High Protein 120 ML LIQUID PO (17:29)
[2022-06-01] MEDS: NIFEdipine 90 MG Tablet PO (20:54)
[2022-06-01] MEDS: Losartan Potassium 25 MG Tablet PO (20:54)
[2022-06-02] VITALS (9 sets, daily range): BP systolic 109–145; BP diastolic 54–93; PULSE 98–107; RESP 14–20; TEMP 36.5–36.7; O2SAT 81–97
[2022-06-02] MEDS: Acetaminophen 325 MG Tablet 650 MG PO ×3 (03:03→23:07)
[2022-06-02 03:26] LABS: Absolute Lymphocyte Count 0.81 X10^3/uL (0.83-4.51); Absolute Neutrophil Count 5.5 X10^3/uL (2.0-7.7); Basophil# 0.04 X10^3/uL; Basophil% 0.6 % (0-1); Eosinophil# 0.06 X10^3/uL; Eosinophils% 0.8 % (0-5); Hematocrit 41.9 % (40-54); Hemoglobin 13.2 g/dL (13.0-16.5); Lymphocyte # 0.81 X10^3/ul (0.83-4.51); Lymphocyte % 11.2 % (19-41); Mean Corp Hgb Conc 31.5 g/dL (32-36); Mean Corpuscular Hgb 30.8 pg (27.0-32.0); Mean Corpuscular Volume 97.9 fL (80-94); Mean Platelet Vol. 9.5 fl (6.2-12.0); Monocyte# 0.88 X10^3/uL; Monocyte% 12.1 % (0-10); NRBC Flagged by Analyzer 0 % (0-5); Neutrophil # 5.46 X10^3/uL (2.7-7.7); Neutrophil % 75.2 % (47-70); Platelet Count 225 K/mm3 (150-450); RBC Distribution Width SD 50.6 fl (35.1-43.9); Red Blood Count 4.28 M/mm3 (4.6-6.2); White Blood Count 7.3 K/mm3 (4.4-11.0)
[2022-06-02 03:40] LABS: Anion Gap 3 (5-15); BUN 33 mg/dL (7-18); BUN/Creat Ratio 48.3 RATIO (10-20); Chloride 95 mmol/L (98-107); Creatinine, Serum 0.68 mg/dL (0.70-1.30); EST Glomerular Filtration Rate 120 mL/min (>60); Est Glom Filt Rate - Afr Amer 145 mL/min (>60); Estimated Creatinine Clearance 53.44 ml/min; Glucose 95 mg/dL (74-106); Sodium Level 142 mmol/L (136-145)
[2022-06-02] MEDS: oxyCODONE 5 MG Tablet PO ×3 (05:26→22:59)
--- NOTE | 2022-06-02 08:29 | PN.CC_ITS ---
Assessment & Plan Assessment/Plan (1) Acute on chronic respiratory failure with hypoxia and hypercapnia: PLAN: Sub-acute respiratory failure was likely related to gradually worsening hypoventilation due to a combination of physiologic thoracic restriction from scoliosis and neuromuscular weakness post-polio, it probably resulted in hypoxia at home that spurred the heart failure and leg edema that brought him to the hospital. This has improved on AVAPS at IPAP 22/12 and EPAP 8, respirations 14, FiO2 30%, tidal volume 450. However, he does not tolerate the high pressure or our mask. - Dr. Walker consulted today to resume care as patient transfers out of ICU, for further ventilator adjustments. - Meanwhile, I have empirically changed his AVAPS settings to PS max 18, PS minimum 12, EPAP 4, rate 14. He will have a trial on those settings while awake for NIV acclimatization, ABG, and do further adjustments as needed -Home machine download requested - check TSH, phospnate - ABG in AM on AVAPS, adjust settings as needed - Dr. Walker can arrange a AVAPS titration polysomnography with end tidal CO2 monitoring to be done urgently as an outpatient. - optimize NIV mask for patient comfort and tolerance - NIV download in 30 days post discharge (2) Post-poliomyelitis syndrome: PLAN: as above, stable (3) Scoliosis: QUALIFIERS: Scoliosis type: thoracogenic Spinal region: thoracolumbar Qualified Code(s): M41.35 - Thoracogenic scoliosis, thoracolumbar region PLAN: as above, stable PLAN: Plan [facility] will continue to follow this patient actively until his care is resumed during a visit with Dr. Gallagher Critical care time spent with patient at bedside, review of documentation, lab results, radiology and other test results, discussion with colleagues and ancillary staff, clinical management of patient, bedside ventilator management and direct observation, and updating family if applicable, was 65 minutes. This time does not include any procedures, if performed. Critical care [place] today [place] 59084. Subjective Subjective The patient and his were encountered during today's visit. His 's name is Karen. This pleasant 77-year-old man had polio at age 6 and was in an iron lung for about 2 months. He gradually improved and was able to breathe spontaneously, required multiple surgeries to walk again. He had been doing well and was on CPAP, which was changed to BiPAP about 2 years ago with no adjustment in his settings. His current worsening seem to have been a gradual downward slide, and development of leg edema was what precipitated his presentation. He knew that leg edema is a sign of heart trouble. On presentation his blood gas had a PCO2 of 120. He was placed on noninvasive ventilation at the current settings and his PCO2 was 89. He has awakened and is very conversant, able to hold a conversation. He usually tolerates a full facemask at home, states that the mask care is harder and more rigid and more uncomfortable than at home. He only worked his AVAPS for 3 hours last night. He was sitting up in a chair, confused, he had just taken his oxygen off that the respiratory therapist had put on less than 15 minutes earlier. The cannula was sitting on the floor and his O2 saturation, after I reattached it, was 80%. After a few deep breaths it came up to 88 to 92%. He was unaware he had removed it. This is apparently common during this admission. His said that for perhaps 2 months prior to admission he had periods of being very lethargic and confused, falling asleep in his chair, even though he does wear his noninvasive ventilation every night. There is no compliance information available yet from his DME but was requested today. His current noninvasive settings are IPAP 11 EPAP 7 rate 14. His sleep physician for the past [address] Gallagher. The patient has not had a sleep study in years. He has not had his machine adjusted for possibly 20 years. He stated he has good mask cleaning techniques and described it today. 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 His corroborated that. He stated he does not tolerate the settings in the hospital which are IPAP 22 max 12 minimum EPAP 8 respirations 14. FiO2 30%, tidal volume 450. He thinks the pressure is too much and the leak is too great. Objective Data Objective Data Vital Signs: Vital Signs Temp Pulse Resp BP Pulse Ox O2 Del Method O2 Flow Rate 97.7 F L 98 20 H 109/54 L 97 Nasal Cannula 4 06/02/22 03:00 06/02/22 03:00 06/02/22 03:00 06/02/22 03:00 06/02/22 03:00 06/02/22 03:00 06/02/22 03:00 FiO2 30 06/02/22 02:12 ABG on admission: pH of 7.17 with a PCO2 of 120 and PO2 of 110 Oxygen Flow Rate (L/min) 4 Oxygen Delivery Method Nasal Cannula Weight: 143 lb 11.862 oz Body Mass Index (BMI) 23.8 Today, under direct observation, he had desaturated to 80% on room air after removing his nasal cannula prior to my entering the room. Nursing and respiratory also reported the same issue. He therefore needs to be watched closely to keep his oxygen on, preferably in the ICU or next to a nursing station on the floor. He is not aware that he takes his oxygen off. There is no NIV download available from his [employer] company. This will be requested today. His will bring his machine from home which can be reset with more adequate settings prior to his discharge. Dr. Gallagher has been consulted on this patient today. I called the office p ersonally. Intake & Output: Intake and Output for Last 24 Hours 05/31/22 06/01/22 06/02/22 23:59 23:59 23:59 Intake Total 260 / 260 860 / 860 Output Total 1100 / 1500 1100 / 1450 425 / 425 Balance -840 / -1240 -240 / -590 -425 / -425 Well-developed well-nourished Lab / Micro Data Attestation: I reviewed the patient's lab results. Result Diagrams: 06/02/22 03:10 06/02/22 03:10 Labs: Laboratory Results - last 24 hr 06/01/22 04:20: Hemoglobin A1c 6.1 H 06/02/22 03:10: WBC 7.3, RBC 4.28 L, Hgb 13.2, Hct 41.9, MCV 97.9 H, MCH 30.8, MCHC 31.5 L, RDW Std Deviation 50.6 H, RDW Coeff of Larry 14.0, Plt Count 225, MPV 9.5, Immature Gran % (Auto) 0.100, Neut % (Auto) 75.2 H, Lymph % (Auto) 11.2 L, [place] % (Auto) 12.1 H, Eos % (Auto) 0.8, Baso % (Auto) 0.6, Absolute Neuts (auto) 5.5, Absolute Lymphs (auto) 0.81 L, Nucleated RBC % 0 06/02/22 03:10: Sodium 142, Potassium 4.0, Chloride 95 L, Carbon Dioxide 44.0 H, Anion Gap 3 L, BUN 33 H, Creatinine 0.68 L, Estim Creat Clear Calc 53.44, Est GFR (MDRD) Af Amer 145, Est GFR (MDRD) Non-Af 120, BUN/Creatinine Ratio 48.3 H, Glucose 95, Calcium 9.0 Micro: Microbiology 05/31/22 18:50 Mucosa - Nasopharyngeal Respiratory Panel (PCR) - Final negative for respiratory pathogens Echocardiogram June 01 showed a left ventricular ejection fraction of 70%, normal wall motion, normal right ventricle with trivial tricuspid regurgitation. There was insufficient quantity of tricuspid regurgitation to calculate an RVSP. Patient states his home settings are 02/27. Ambulatory oximetry on O2 by the nursing staff showed no desaturation in the room on 2 L ABG Data Attestation: I personally reviewed and interpreted this ABG as follows: Interpretation: Severe acute on chronic respiratory acidosis on presentation, improved after NIV Radiography Diagnostic Testing: Radiology Impression Echocardiogram 05/31/22 17:06 Interpretation Summary The estimated ejection fraction is 70 %. No evidence for diastolic dysfunction. Small pericardial effusion. Ordering Physician: Stacie Damico Referring Physician: Luis Medina Performed By: Kaci Dixon, RDCS, RVT Rhythm Strip Rhythm Strip: Sinus Tach Rate: 116 Ectopy: None Physical Exam Narrative Initially confused and dusky appearing gentleman sitting restless in his chair with his oxygen cannula on the floor, sitting in his bed. HEENT: His color improved to normal after reapplication of his oxygen cannula with improvement in saturation from 80% to 92%. Mucous membranes are moist, no thrush, speech is articulate. Chest has bibasilar crackles a third [address] the way both lung [place]. No wheezes or rhonchi. Patient is more comfortable sitting up in a slightly tripod position. Posterior chest has surgical scar from previous polio related surgery, unable to take a deep breath due to neuromuscular issues, chronic. Some chronic use of accessory muscles during conversation. Heart normal S1-S2 with no murmurs rubs or gallop , positive bowel sounds , Nondistended, nontender. Extremities have 2+ pitting edema right greater than left. No lesions Neuro is grossly nonfocal, Skin is unremarkable after resolution of initial cyanosis. Charges/Coding Procedures Hospitalists Procedures: 14915 Critial Care 1st Hr
--- NOTE | 2022-06-02 09:51 | PN.HOSP_ITS ---
Reason for Visit Reason for Visit: Diagnoses Acute respiratory failure with hypoxia (05/31/22) Subjective Subjective Patient seen and examined. He has no active complaints. He denies any fever, chills, cough, chest pain, palpitations, dizziness, nausea, vomiting or diarrhea. Review of systems is otherwise negative. Objective Data Objective Data Vital Signs: Vital Signs Temp Pulse Resp BP Pulse Ox O2 Del Method O2 Flow Rate 97.7 F L 98 20 H 109/54 L 97 Nasal Cannula 4 06/02/22 03:00 06/02/22 03:00 06/02/22 03:00 06/02/22 03:00 06/02/22 03:00 06/02/22 03:00 06/02/22 03:00 FiO2 30 06/02/22 02:12 Oxygen Flow Rate (L/min) 4 Oxygen Delivery Method Nasal Cannula Weight: 143 lb 11.862 oz Body Mass Index (BMI) 23.8 Intake & Output: Intake and Output for Last 24 Hours 05/31/22 06/01/22 06/02/22 23:59 23:59 23:59 Intake Total 260 / 260 860 / 860 Output Total 1100 / 1500 1100 / 1450 425 / 425 Balance -840 / -1240 -240 / -590 -425 / -425 Lab / Micro Data Result Diagrams: 06/02/22 03:10 06/02/22 03:10 Labs: Laboratory Results - last 24 hr 06/02/22 03:10: WBC 7.3, RBC 4.28 L, Hgb 13.2, Hct 41.9, MCV 97.9 H, MCH 30.8, MCHC 31.5 L, RDW Std Deviation 50.6 H, RDW Coeff of Larry 14.0, Plt Count 225, MPV 9.5, Immature Gran % (Auto) 0.100, Neut % (Auto) 75.2 H, Lymph % (Auto) 11.2 L, [place] % (Auto) 12.1 H, Eos % (Auto) 0.8, Baso % (Auto) 0.6, Absolute Neuts (auto) 5.5, Absolute Lymphs (auto) 0.81 L, Nucleated RBC % 0 06/02/22 03:10: Sodium 142, Potassium 4.0, Chloride 95 L, Carbon Dioxide 44.0 H, Anion Gap 3 L, BUN 33 H, Creatinine 0.68 L, Estim Creat Clear Calc 53.44, Est GFR (MDRD) Af Amer 145, Est GFR (MDRD) Non-Af 120, BUN/Creatinine Ratio 48.3 H, Glucose 95, Calcium 9.0 Micro: Microbiology 05/31/22 18:50 Mucosa - Nasopharyngeal Respiratory Panel (PCR) - Final Radiography Diagnostic Testing: Radiology Impression Echocardiogram 05/31/22 17:06 Interpretation Summary The estimated ejection fraction is 70 %. No evidence for diastolic dysfunction. Small pericardial effusion. Ordering Physician: Stacie Damico Referring Physician: Luis Medina Performed By: Kaci Dixon, KATIE, RVT Rhythm Strip Rhythm Strip: Sinus Tach Rate: 116 Ectopy: None Physical Exam Const alert, oriented x3 and no apparent distress HEENT head/scalp atraumatic and moist oral mucous membranes Head and Scalp: normocephalic Mouth: oral and palatal mucosa normal Eyes PERRL, EOMs intact bilaterally and conjunctivae normal Neck no lymphadenopathy and supple Resp Resp Narrative: mildly diminished breath sounds bibasally, no wheezes or crackles. On 4L of oxygen. Cardio regular rate, regular rhythm, S1 normal heart sound, S2 normal heart sound and no murmurs GI normal to inspection, nondistended, normoactive bowel sounds, soft to palpation, non-tender and non-distended Extremity normal to inspection, full ROM and no clubbing, cyanosis or edema Neuro oriented x3, CN's II-XII intact bilaterally, moves all extremities and no focal motor deficits Sensorium / Orientation: awake and alert Motor Exam: strength 5/5 throughout Psych affect normal Assessment & Plan Assessment/Plan (1) Acute respiratory failure with hypoxia: PLAN: Plan #Acute hypoxic and hypercapnic respiratory failure * feels much better. 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 * PT.OT on board * #GERD: on PPI #Hypertension: on losartan and nifedipine. #Anxiety and depression: on venlafaxine DVT prophylaxis:lovenox Disposition: for likely Dc home tomorrow. Will need walking pulse ox prior to discharge. Charges/Coding Visit Charges Inpatient E&M: 41478 Subs Hosp L2
[2022-06-02] MEDS: Venlafaxine XR 75 MG Capsule PO (10:56)
[2022-06-02] MEDS: Enoxaparin 40 MG/0.4 ML Syringe SC (10:56)
[2022-06-02] MEDS: Tamsulosin HCl 0.4 MG Capsule PO ×2 (10:58→22:59)
--- NOTE | 2022-06-02 13:24 | CASEMGMT ---
KRISHNA ABBOTT Follow-up: Face to face with pt. Pt has been transferred from ICU to Med/Surg. Discussed continued O2 need with expected discharge with O2. Pt continues to request this be setup with [facility]. Pt states they are to adjust his CPAP settings tonight. Pt denies any additional dc needs or concerns at this time. Green sheet placed on chart for weekend oxygen set-up. Beatriz Campos RN CM
[2022-06-02 15:10] LABS: Allen Test Positive; Base Excess 17 mmol/L (-2 to +2); Bicarbonate 42.4 mmol/L (22-26); Blood Gas Specimen Type ART; O2 Delivery Device BiPAP; PO2 68 mmHG (75-100); SITE R Radial; SO2 91 % (95-99); Total Carbon Dioxide 45 mmol/L; pCO2 75.5 mmHg (35-45); pH 7.36 (7.35-7.45)
--- NOTE | 2022-06-02 15:53 | PCM.PN.INT ---
Assessment & Plan Assessment/Plan (1) Acute on chronic respiratory failure with hypoxia and hypercapnia: PLAN: The patient's BiPAP download suggest that he has been chronically hypoventilated at night, possibly at least partially explaining his severe hypercarbia. PLAN: Plan Today's adjusted meds and his trilogy machine have met at goal of pH 7.35-7.45. To improve comfort and tolerance of his higher pressure settings, I will adjust to IPAP 14, EPAP 4, rate 22, and titrate oxygen to keep saturation greater than 90% at all times. ABG in the morning just before discontinuing NIV for the night I have contacted [facility] to get the above information, we will contact them again to make the final changes on his home machine prior to discharge. He will need to have supplemental oxygen arranged NIV titration polysomnography as an outpatient Subjective Subjective Today was spent optimizing his NIV settings, with improved ABG of 7.35, PCO2 75, PO2 68 on settings of IPAP 18 maximum, 12 minimum, and EPAP 4. FiO2 is 30%, tidal volume 450 on the hospital trilogy machine. Unfortunately, he hates the machine and the pressure his brought the machine from home, but the tubing is incompatible, so he cannot use his mask with our machine. The next goal in optimizing his machine is to decrease the pressures, increased rate, giving the same minute ventilation, improve comfort and slightly improved ABG. My goal is a pH in the normal range and mild further reduction in his PCO2 while maintaining adequate oxygenation. The patient's Karen stated that they both want to switch his pulmonary/sleep care to [facility], and switch to [facility] [place] for DME equipment. I recommended she advise Dr. Medina and her hospitalist of this, and appropriate arrangements can be made at discharge. I would be happy to accept him in my practice. Objective Data Objective Data Vital Signs: Vital Signs Temp Pulse Resp BP Pulse Ox O2 Del Method O2 Flow Rate 98.0 F 104 H 18 133/72 H 94 Nasal Cannula 2 06/02/22 13:50 06/02/22 13:51 06/02/22 13:50 06/02/22 13:50 06/02/22 13:50 06/02/22 13:51 06/02/22 13:51 FiO2 30 06/02/22 02:12 Oxygen Flow Rate (L/min) 2 Oxygen Delivery Method Nasal Cannula Weight: 143 lb 11.862 oz Body Mass Index (BMI) 23.8 Intake & Output: Intake and Output for Last 24 Hours 05/31/22 06/01/22 06/02/22 23:59 23:59 23:59 Intake Total 260 / 260 860 / 860 310 / 310 Output Total 1100 / 1500 1100 / 1450 425 / 425 Balance -840 / -1240 -240 / -590 -115 / -115 Lab / Micro Data Result Diagrams: 06/02/22 03:10 06/02/22 03:10 Labs: Laboratory Results - last 24 hr 06/02/22 03:10: WBC 7.3, RBC 4.28 L, Hgb 13.2, Hct 41.9, MCV 97.9 H, MCH 30.8, MCHC 31.5 L, RDW Std Deviation 50.6 H, RDW Coeff of Larry 14.0, Plt Count 225, MPV 9.5, Immature Gran % (Auto) 0.100, Neut % (Auto) 75.2 H, Lymph % (Auto) 11.2 L, [place] % (Auto) 12.1 H, Eos % (Auto) 0.8, Baso % (Auto) 0.6, Absolute Neuts (auto) 5.5, Absolute Lymphs (auto) 0.81 L, Nucleated RBC % 0 06/02/22 03:10: Sodium 142, Potassium 4.0, Chloride 95 L, Carbon Dioxide 44.0 H, Anion Gap 3 L, BUN 33 H, Creatinine 0.68 L, Estim Creat Clear Calc 53.44, Est GFR (MDRD) Af Amer 145, Est GFR (MDRD) Non-Af 120, BUN/Creatinine Ratio 48.3 H, Glucose 95, Calcium 9.0 Micro: Microbiology 05/31/22 18:50 Mucosa - Nasopharyngeal Respiratory Panel (PCR) - Final ABG Data ABG results: ABG 06/02/22 15:05 Specimen Type ART Sample Site R Radial pH 7.36 Bicarbonate Actual 42.4 H Total CO2 45 Base Excess 17 H O2 Saturation 91 L ABG pCO2 75.5 H* ABG pO2 68 L Stephane Test Positive O2 Delivery Device BiPAP Crit Call To/Read Back Yes Blood Gas Notified Whom LANCE Clinical Comments BiPAP compliance report from [facility] [employer] (DME for [facility]), [employer], 30-day BiPAP download, between 05/01/2022 and 05/30/2022, the machine is a Resmed air curve 10 S BiPAP machine on spontaneous mode. Settings are IPAP 11 EPAP 7 Excellent compliance: Days used more than 4 hours: 100%. average usage, 7 hours 20 minutes, median usage 7 hours 30 minutes. Acceptable leak: Median is 4.1 L/min maximum 16.7 on his current full face mask. AHI was 3.3 with 1.2 apneas and 2.1 hypopneas. There was a 0.7 central apnea index and obstructive apnea index 0.4. Review of his [place] timelines show that his use was very consistent. The AHI was also fairly consistent between the range reported. Maximum AHI was 8 or less Tidal volume averaged 211 cc, with a 95th percentile 303 cc. His average respiratory rate was 30, with a maximum of 39 and the 95th percentile of 36 breaths/min. The minute ventilation median was 6.6 L/min, with a maximum of 11 point 3-1/95 percentile of 8.2. This test is suggestive of chronic nocturnal hypoventilation while on BiPAP which is used with excellent compliance, with low tidal volumes and compensatory tachypnea and a machine that does not Initiate breaths. Interpretation: Severe chronic respiratory acidosis, with Adequate metabolic compensation, and adequate oxygenation. The blood gas was done while on trilogy AVAPS mode, full facemask, with IPAP 12-18, EPAP 4, rate 14, FiO2 30%. Rhythm Strip Rhythm Strip: Sinus Tach Rate: 116 Ectopy: None
--- NOTE | 2022-06-02 16:56 | CASEMGMT ---
Social Work SW met with pt and assisted in completing HCPOA naming his Karen Ervin. Pt choosing not to complete living will at this time but did accept information to take and consider. Copy of HCPOA on chart and original given to pt. MARISELA Boo
[2022-06-02] MEDS: NIFEdipine 90 MG Tablet PO (22:59)
[2022-06-02] MEDS: Pantoprazole Sodium 40 MG Tablet PO (22:59)
[2022-06-02] MEDS: Losartan Potassium 25 MG Tablet PO (22:59)
[2022-06-02] MEDS: 0.9% Saline Lock 10 ML Syringe IV (23:13)
[2022-06-03] VITALS (20 sets, daily range): BP systolic 105–148; BP diastolic 62–92; PULSE 64–104; RESP 18–29; TEMP 36.4–37.1; O2SAT 79–95
[2022-06-03 04:10] LABS: Allen Test Positive; Base Excess 19 mmol/L (-2 to +2); Bicarbonate 44.1 mmol/L (22-26); Blood Gas Specimen Type ART; FI02 30; O2 Delivery Device BiPAP; PO2 92 mmHG (75-100); SITE R Radial; SO2 96 % (95-99); Total Carbon Dioxide 47 mmol/L; pH 7.35 (7.35-7.45)
--- NOTE | 2022-06-03 04:11 | CPS ---
Based on ABG results, Bilevel settings increased to 16/6 due to CO2 reading 80.0mmHg.
[2022-06-03] MEDS: oxyCODONE 5 MG Tablet PO ×3 (06:07→21:50)
[2022-06-03] MEDS: Acetaminophen 325 MG Tablet 650 MG PO ×3 (06:07→21:50)
[2022-06-03 07:48] LABS: Absolute Lymphocyte Count 0.48 X10^3/uL (0.83-4.51); Absolute Neutrophil Count 4.1 X10^3/uL (2.0-7.7); Basophil# 0.03 X10^3/uL; Basophil% 0.5 % (0-1); Eosinophil# 0.09 X10^3/uL; Eosinophils% 1.6 % (0-5); Hematocrit 39.5 % (40-54); Hemoglobin 12.3 g/dL (13.0-16.5); Lymphocyte # 0.48 X10^3/ul (0.83-4.51); Lymphocyte % 8.8 % (19-41); Mean Corp Hgb Conc 31.1 g/dL (32-36); Mean Corpuscular Hgb 30.5 pg (27.0-32.0); Monocyte% 14.7 % (0-10); NRBC Flagged by Analyzer 0 % (0-5); Neutrophil # 4.05 X10^3/uL (2.7-7.7); Neutrophil % 74.2 % (47-70); POSITIVE DIFFERENTIAL YES; Platelet Count 196 K/mm3 (150-450); RBC Distribution Width CV 13.7 % (11.6-14.6); RBC Distribution Width SD 50.4 fl (35.1-43.9); Red Blood Count 4.03 M/mm3 (4.6-6.2); White Blood Count 5.5 K/mm3 (4.4-11.0)
[2022-06-03 08:09] LABS: Differential Indicated SCAN CRITERIA MET
[2022-06-03 08:24] LABS: Anion Gap 4 (5-15); BUN 23 mg/dL (7-18); BUN/Creat Ratio 45.1 RATIO (10-20); Calcium,Total 8.7 mg/dL (8.5-10.1); Chloride 93 mmol/L (98-107); Creatinine, Serum 0.51 mg/dL (0.70-1.30); EST Glomerular Filtration Rate 168 mL/min (>60); Est Glom Filt Rate - Afr Amer 204 mL/min (>60); Estimated Creatinine Clearance 53.44 ml/min; Glucose 103 mg/dL (74-106); Potassium 4.1 mmol/L (3.5-5.1); Sodium Level 139 mmol/L (136-145)
[2022-06-03] MEDS: Tamsulosin HCl 0.4 MG Capsule PO ×2 (08:36→21:51)
[2022-06-03] MEDS: Pantoprazole Sodium 40 MG Tablet PO ×2 (08:36→21:51)
[2022-06-03] MEDS: Venlafaxine XR 75 MG Capsule PO (08:36)
[2022-06-03] MEDS: Enoxaparin 40 MG/0.4 ML Syringe SC (08:36)
[2022-06-03] MEDS: Ensure Plus High Protein 120 ML LIQUID PO ×2 (08:36→13:59)
--- NOTE | 2022-06-03 08:47 | PN.CC_ITS ---
Assessment & Plan Assessment/Plan (1) Post-poliomyelitis syndrome: PLAN: No acute worsening of neuromuscular weakness; the patient's deterioration was gradual and likely caused by onset of hypoxia related acute right heart failure, which caused his hypoxemia to spiral and developed respiratory failure requiring hospitalization. (2) Acute on chronic respiratory failure with hypoxia and hypercapnia: PLAN: As above (3) Scoliosis: QUALIFIERS: Scoliosis type: thoracogenic Spinal region: thoracolumbar Qualified Code(s): M41.35 - Thoracogenic scoliosis, thoracolumbar region PLAN: Chronic (4) Segmental dysfunction of thoracic region: PLAN: Chronic (5) On mechanically assisted ventilation: PLAN: 16/4 with a respiratory rate of 24 and decrease FiO2 to 25% with goal SPO2 88% or more. [facility] can change his home vent settings to the above as soon as they are available, probably Sunday. Check for home oxygen needs just prior to discharge Overnight titration showed that the patient is stable and improved on BiPAP alone and does not need AVAPS. Therefore he can return to using his own machine and be discharged as soon as his DME can change the settings on his machine to those above. If he must stay over the weekend due to logistical problems -I ordered 20 mg of Lasix IV x1 now - I ordered have him get another blood gas tomorrow morning on the above settings. Subjective Subjective Patient tolerated BiPAP at 14/4 and respiratory rate 22, 30% FiO2 overnight. Arterial blood gas this morning at 5 AM was 7.35/80/90 1.8. I recommended changing to 16/4 with a respiratory rate of 24 and decrease FiO2 to 25% with goal SPO2 88% or more. Patient tolerated the machine mask and settings much better last night. He slept until the blood gas was drawn at about 5 AM, then put his mask back on and slept for another 4 hours! Objective Data Objective Data Vital Signs: Vital Signs Temp Pulse Resp BP Pulse Ox O2 Del Method O2 Flow Rate 97.9 F 83 22 H 131/69 H 92 Bi-pap 2 06/03/22 06:05 06/03/22 06:41 06/03/22 06:41 06/03/22 06:05 06/03/22 06:41 06/03/22 06:41 06/03/22 04:34 FiO2 30 06/03/22 06:41 Oxygen Flow Rate (L/min) 2 Oxygen Delivery Method Bi-pap Weight: 144 lb 13.499 oz Body Mass Index (BMI) 23.8 Intake & Output: Intake and Output for Last 24 Hours 06/01/22 06/02/22 06/03/22 23:59 23:59 23:59 Intake Total 860 / 860 1060 / 1060 Output Total 1100 / 1450 425 / 425 Balance -240 / -590 635 / 635 Lab / Micro Data Attestation: I reviewed the patient's lab results. Result Diagrams: 06/03/22 06:34 06/03/22 06:34 Labs: Laboratory Results - last 24 hr 06/03/22 06:34: WBC 5.5, RBC 4.03 L, Hgb 12.3 L, Hct 39.5 L, MCV 98.0 H, MCH 30.5, MCHC 31.1 L, RDW Std Deviation 50.4 H, RDW Coeff of Larry 13.7, Plt Count 196, MPV 10.0, Immature Gran % (Auto) 0.200, Neut % (Auto) 74.2 H, Lymph % (Auto) 8.8 L, [place] % (Auto) 14.7 H, Eos % (Auto) 1.6, Baso % (Auto) 0.5, Absolute Neuts (auto) 4.1, Absolute Lymphs (auto) 0.48 L, Nucleated RBC % 0 06/03/22 06:34: Sodium 139, Potassium 4.1, Chloride 93 L, Carbon Dioxide 42.0 H, Anion Gap 4 L, BUN 23 H, Creatinine 0.51 L, Estim Creat Clear Calc 53.44, Est GFR (MDRD) Af Amer 204, Est GFR (MDRD) Non-Af 168, BUN/Creatinine Ratio 45.1 H, Glucose 103, Calcium 8.7 Micro: Microbiology 05/31/22 18:50 Mucosa - Nasopharyngeal Respiratory Panel (PCR) - Final ABG Data ABG results: ABG 06/02/22 06/03/22 15:05 03:59 Specimen Type ART ART Sample Site R Radial R Radial pH 7.36 7.35 Bicarbonate Actual 42.4 H 44.1 H Total CO2 45 47 Base Excess 17 H 19 H O2 Saturation 91 L 96 O2 % 30 ABG pCO2 75.5 H* 80.0 H* ABG pO2 68 L 92 Stephane Test Positive Positive O2 Delivery Device BiPAP BiPAP Crit Call To/Read Back Yes Yes Blood Gas Notified Whom LANCE BALL Clinical Comments 04/08 RR18 30% This was done at 04/08 FiO2 30%. Recommended new settings 5:30 AM: NIV nightly 06/08 with a respiratory rate of 24 and decrease FiO2 to 25% with goal SPO2 88% or more. Patient may use his own machine and be discharged as soon as [facility], his usual DME, can be onsite to make the changes. Prior to discharge. Attestation: I personally reviewed and interpreted this ABG as follows: Interpretation: Severe chronic respiratory acidosis, with adequate metabolic compensation and adequate external respiratory compensation by use of noninvasive ventilation; normal oxygenation on 30% FiO2. Rhythm Strip Rhythm Strip: Sinus Tach Rate: 116 Ectopy: None Physical Exam Narrative Well-developed well-nourished developed, no acute distress. Neuro: Alert oriented, well rested. No focality except for chronic weakness from his polio, unchanged. Chest: He did use accessory muscles of respiration when moving and with conversation, on 1 L/min. This is his norm. No cough, sputum. Lungs are clear bilaterally Extremities: His leg edema is still present and still more than at home. He will get some Lasix this evening. Cardiac exam is normal Otherwise unchanged. Skin warm and dry Charges/Coding Visit Charges Inpatient E&M: 09634 Init Hosp L3
[2022-06-03 10:03] LABS: Differential Comment SCANNED
--- NOTE | 2022-06-03 12:07 | PN.HOSP_ITS ---
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 was by his bedside. He became hypercapnic yesterday and had to be placed on BIPAP. He was off BIPAP this morning. He denied feeling short of breath and denied any fever, chills, cough, chest pain, palpitations, dizziness, nausea, vomiting or diarrhea. Review of systems is otherwise negative. Objective Data Objective Data Vital Signs: Vital Signs Temp Pulse Resp BP Pulse Ox O2 Del Method O2 Flow Rate 98.7 F 98 22 H 105/62 95 Nasal Cannula 3 06/03/22 09:40 06/03/22 11:48 06/03/22 11:13 06/03/22 09:40 06/03/22 11:48 06/03/22 11:48 06/03/22 11:48 FiO2 30 06/03/22 06:41 Oxygen Flow Rate (L/min) 3 Oxygen Delivery Method Nasal Cannula Weight: 144 lb 13.499 oz Body Mass Index (BMI) 23.8 Intake & Output: Intake and Output for Last 24 Hours 06/01/22 06/02/22 06/03/22 23:59 23:59 23:59 Intake Total 860 / 860 1060 / 1060 Output Total 1100 / 1450 425 / 425 Balance -240 / -590 635 / 635 Lab / Micro Data Result Diagrams: 06/03/22 06:34 06/03/22 06:34 Labs: Laboratory Results - last 24 hr 06/03/22 06:34: WBC 5.5, RBC 4.03 L, Hgb 12.3 L, Hct 39.5 L, MCV 98.0 H, MCH 30.5, MCHC 31.1 L, RDW Std Deviation 50.4 H, RDW Coeff of Larry 13.7, Plt Count 196, MPV 10.0, Immature Gran % (Auto) 0.200, Neut % (Auto) 74.2 H, Lymph % (Auto) 8.8 L, [place] % (Auto) 14.7 H, Eos % (Auto) 1.6, Baso % (Auto) 0.5, Absolute Neuts (auto) 4.1, Absolute Lymphs (auto) 0.48 L, Nucleated RBC % 0, Differential Comment SCANNED 06/03/22 06:34: Sodium 139, Potassium 4.1, Chloride 93 L, Carbon Dioxide 42.0 H, Anion Gap 4 L, BUN 23 H, Creatinine 0.51 L, Estim Creat Clear Calc 53.44, Est GFR (MDRD) Af Amer 204, Est GFR (MDRD) Non-Af 168, BUN/Creatinine Ratio 45.1 H, Glucose 103, Calcium 8.7 Micro: Microbiology 05/31/22 18:50 Mucosa - Nasopharyngeal Respiratory Panel (PCR) - Final ABG Data ABG results: ABG 06/02/22 06/03/22 15:05 03:59 Specimen Type ART ART Sample Site R Radial R Radial pH 7.36 7.35 Bicarbonate Actual 42.4 H 44.1 H Total CO2 45 47 Base Excess 17 H 19 H O2 Saturation 91 L 96 O2 % 30 ABG pCO2 75.5 H* 80.0 H* ABG pO2 68 L 92 Stephane Test Positive Positive O2 Delivery Device BiPAP BiPAP Crit Call To/Read Back Yes Yes Blood Gas Notified Whom LANCE BALL Clinical Comments 04/08 RR18 30% Rhythm Strip Rhythm Strip: Sinus Tach Rate: 116 Ectopy: None Physical Exam Const alert, oriented x3 and no apparent distress HEENT head/scalp atraumatic and moist oral mucous membranes Head and Scalp: normocephalic Mouth: oral and palatal mucosa normal Eyes PERRL, EOMs intact bilaterally and conjunctivae normal Neck no lymphadenopathy and supple Resp Resp Narrative: mildly diminished breath sounds bibasally, no wheezes or crackles. On 3L of oxygen. Cardio regular rate, regular rhythm, S1 normal heart sound, S2 normal heart sound and no murmurs GI normal to inspection, nondistended, normoactive bowel sounds, soft to palpation, non-tender and non-distended Extremity normal to inspection, full ROM and no clubbing, cyanosis or edema Neuro oriented x3, CN's II-XII intact bilaterally, moves all extremities and no focal motor deficits Sensorium / Orientation: awake and alert Motor Exam: strength 5/5 throughout Psych affect normal Assessment & Plan Assessment/Plan (1) Acute respiratory failure with hypoxia: PLAN: Plan #Acute hypoxic and hypercapnic respiratory failure * feels much better. 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 this needs to be adjusted to a setting of 16/4 with a respiratory rate of 24 and decrease FiO2 to 25% with goal SpO2 of at least 88%. This will help with his breathing and help prevent any such recurrence of hypercapnia and hypoxia. * * #History of LAKISHA: on CPAP qhs #History of scoliosis and chronic lumbar back pain * stable. * PT.OT on board * #GERD: on PPI #Hypertension: on losartan and nifedipine. #Anxiety and depression: on venlafaxine DVT prophylaxis:lovenox Disposition:for DC home once home CPAP has been recalibrated by the company that supplies the machine Charges/Coding Visit Charges Inpatient E&M: 48541 Subs Hosp L2
--- NOTE | 2022-06-03 16:14 | NURSING ---
MARISOL in [facility] informed of need for sputum induction for this pt
--- NOTE | 2022-06-03 18:28 | NURSING ---
awaiting [facility]PS for sputum induction per policy
[2022-06-03] MEDS: NIFEdipine 90 MG Tablet PO (21:50)
[2022-06-03] MEDS: Losartan Potassium 25 MG Tablet PO (22:06)
[2022-06-04] VITALS (16 sets, daily range): BP systolic 113–157; BP diastolic 59–85; PULSE 88–106; RESP 18–28; TEMP 36.5–37.2; O2SAT 2–98
[2022-06-04 06:07] LABS: Absolute Lymphocyte Count 0.59 X10^3/uL (0.83-4.51); Absolute Neutrophil Count 3.8 X10^3/uL (2.0-7.7); Basophil# 0.04 X10^3/uL; Basophil% 0.8 % (0-1); Eosinophil# 0.12 X10^3/uL; Eosinophils% 2.3 % (0-5); Hematocrit 41.3 % (40-54); Hemoglobin 12.6 g/dL (13.0-16.5); Lymphocyte # 0.59 X10^3/ul (0.83-4.51); Lymphocyte % 11.2 % (19-41); Mean Corp Hgb Conc 30.5 g/dL (32-36); Mean Corpuscular Hgb 29.9 pg (27.0-32.0); Mean Corpuscular Volume 98.1 fL (80-94); Mean Platelet Vol. 9.9 fl (6.2-12.0); Monocyte# 0.74 X10^3/uL; Monocyte% 14.1 % (0-10); NRBC Flagged by Analyzer 0 % (0-5); Neutrophil # 3.75 X10^3/uL (2.7-7.7); Neutrophil % 71.2 % (47-70); POSITIVE DIFFERENTIAL YES; Platelet Count 203 K/mm3 (150-450); RBC Distribution Width CV 13.8 % (11.6-14.6); RBC Distribution Width SD 49.6 fl (35.1-43.9); Red Blood Count 4.21 M/mm3 (4.6-6.2); White Blood Count 5.3 K/mm3 (4.4-11.0)
[2022-06-04 06:22] LABS: Differential Indicated SCAN CRITERIA MET
[2022-06-04 06:33] LABS: Anion Gap 2 (5-15); BUN 19 mg/dL (7-18); BUN/Creat Ratio 30.3 RATIO (10-20); Calcium,Total 8.7 mg/dL (8.5-10.1); Chloride 97 mmol/L (98-107); Creatinine, Serum 0.63 mg/dL (0.70-1.30); EST Glomerular Filtration Rate 133 mL/min (>60); Est Glom Filt Rate - Afr Amer 161 mL/min (>60); Estimated Creatinine Clearance 53.44 ml/min; Glucose 98 mg/dL (74-106); Potassium 4.2 mmol/L (3.5-5.1); Sodium Level 141 mmol/L (136-145)
[2022-06-04] MEDS: oxyCODONE 5 MG Tablet PO ×3 (06:39→21:22)
[2022-06-04] MEDS: Acetaminophen 325 MG Tablet 650 MG PO ×3 (06:39→21:22)
[2022-06-04] MEDS: Furosemide 20 MG/2 ML VIAL IV (06:42)
[2022-06-04] MEDS: 0.9% Saline Lock 10 ML Syringe IV ×2 (06:45→19:58)
[2022-06-04 06:46] LABS: Differential Comment SCANNED
[2022-06-04 06:51] LABS: Allen Test Positive; Base Excess 18 mmol/L (-2 to +2); Bicarbonate 43.7 mmol/L (22-26); Blood Gas Specimen Type ART; Comment 16/4; FI02 30; Mode BiLevel; O2 Delivery Device BiPAP; PEEP 4; PO2 70 mmHG (75-100); RR 22; SITE L Radial; SO2 92 % (95-99); Total Carbon Dioxide 46 mmol/L; pCO2 75.8 mmHg (35-45); pH 7.37 (7.35-7.45)
--- NOTE | 2022-06-04 09:55 | PN_ITS ---
- Physical Exam Vitals/I&O's: Vital Signs Temp Pulse Resp BP Pulse Ox O2 Del Method O2 Flow Rate 97.9 F 92 28 H 118/74 95 Bi-pap 2 06/04/22 06:32 06/04/22 06:32 06/04/22 06:32 06/04/22 06:32 06/04/22 06:32 06/04/22 06:32 06/03/22 21:58 FiO2 30 06/04/22 03:29 Oxygen Flow Rate (L/min) 2 Oxygen Delivery Method Bi-pap Weight: 66.2 kg Body Mass Index (BMI) 23.8 Intake and Output for Last 24 Hours 06/02/22 06/03/22 06/04/22 23:59 23:59 23:59 Intake Total 1060 / 1060 904 / 1104 200 / 200 Output Total 425 / 425 200 / 200 Balance 635 / 635 904 / 1104 0 / 0 General: Alert, Oriented x3, Cooperative HEENT: Atraumatic, PERRLA, EOMI, Normocephalic Oral: Moist Mucosa Neck: Supple, No JVD, Negative Carotid Bruits Lungs: Clear to auscultation, No rhonchi, No wheeze - resolved egophony post r base. Cardiovascular: No murmurs, Irregular Rate Abdomen: Bowel Sounds Present, Soft, Non Tender Extremities: No edema, Capillary Refill Less than 3 Seconds Skin: No rashes, No breakdown Musculoskeletal: No Tenderness to Palpation of Joints or Extremities Neurological: Cranial nerves II-XII grossly intact Psych/Mental Status: Normal Affect, Appropriate Laboratory Results 06/03/22 06:34: Differential Comment SCANNED 06/04/22 05:37: WBC 5.3, RBC 4.21 L, Hgb 12.6 L, Hct 41.3, MCV 98.1 H, MCH 29.9, MCHC 30.5 L, RDW Std Deviation 49.6 H, RDW Coeff of Larry 13.8, Plt Count 203, MPV 9.9, Immature Gran % (Auto) 0.400, Neut % (Auto) 71.2 H, Lymph % (Auto) 11.2 L, [place] % (Auto) 14.1 H, Eos % (Auto) 2.3, Baso % (Auto) 0.8, Absolute Neuts (auto) 3.8, Absolute Lymphs (auto) 0.59 L, Nucleated RBC % 0, Differential Comment SCANNED 06/04/22 05:37: Sodium 141, Potassium 4.2, Chloride 97 L, Carbon Dioxide 42.0 H, Anion Gap 2 L, BUN 19 H, Creatinine 0.63 L, Estim Creat Clear Calc 53.44, Est GFR (MDRD) Af Amer 161, Est GFR (MDRD) Non-Af 133, BUN/Creatinine Ratio 30.3 H, Glucose 98, Calcium 8.7 06/04/22 06:43: Specimen Type ART, Sample Site L Radial, pH 7.37, Bicarbonate Actual 43.7 H, Total CO2 46, Base Excess 18 H, O2 Saturation 92 L, O2 % 30, ABG pCO2 75.8 H*, ABG pO2 70 L, Stephane Test Positive, Respiration Rate 22, O2 Delivery Device BiPAP, Vent Mode BiLevel, POC PEEP 4, Crit Call To/Read Back Yes, Blood Gas Notified Whom Harsh, Clinical Comments 06/08 Current Medications Acetaminophen (Acetaminophen 650 Mg Suppository) 650 mg RC Q4H PRN PRN PRN Reason: Fever, pain 1-10 Acetaminophen (Acetaminophen 325 Mg Tablet) 650 mg PO Q4H PRN PRN PRN Reason: Fever, pain 1-10 Last Admin: 06/04/22 06:39 Dose: 650 mg Albuterol Sulfate (Albuterol 2.5 Mg/3 Ml Vial.Neb.) 2.5 mg INHALATION Q2H PRN PRN PRN Reason: Dyspnea, wheezing Enoxaparin Sodium (Enoxaparin 40 Mg/0.4 Ml Syringe) 40 mg SC DAILY [facility] Last Admin: 06/03/22 08:36 Dose: 40 mg Hydralazine HCl (Hydralazine 20 Mg/Ml Vial) 10 mg IV Q4H PRN PRN PRN Reason: SBP > 160 Sodium Chloride () 250 mls @ 15 mls/hr IV .[id number] PRN PRN Reason: Saline Flush Sodium Chloride () 250 mls @ 15 mls/hr IV .[id number] PRN PRN Reason: Additional IVPB Infusion Losartan Potassium (Losartan Potassium 25 Mg Tablet) 25 mg PO HS [facility] Last Admin: 06/03/22 22:06 Dose: 25 mg Nifedipine (Nifedipine 90 Mg Tablet) 90 mg PO QHS [facility] Last Admin: 06/03/22 21:50 Dose: 90 mg Nutritional Formula (Lactose Free) (Ensure Plus High Protein 120 Ml Liquid) 120 ml PO 4X/DAY [facility] Last Admin: 06/03/22 21:43 Dose: Not Given Ondansetron HCl (Ondansetron 4 Mg/2 Ml Vial) 4 mg IV Q8H PRN PRN PRN Reason: NAUSEA/VOMITING Oxycodone HCl (Oxycodone 5 Mg Tablet) 5 mg PO TID [facility] Last Admin: 06/04/22 06:39 Dose: 5 mg Pantoprazole Sodium (Pantoprazole Sodium 40 Mg Tablet) 40 mg PO BID [facility] Last Admin: 06/03/22 21:51 Dose: 40 mg Prochlorperazine Edisylate (Prochlorperazine 10 Mg/2 Ml Vial) 5 mg IV Q4H PRN PRN PRN Reason: Breakthrough Nausea/Vomiting Senna (Senna Tablet) 1 tablet PO DAILY PRN PRN PRN Reason: CONSTIPATION Last Admin: 06/01/22 14:28 Dose: 1 tablet Sodium Chloride (0.9% Saline Lock 10 Ml Syringe) 10 - 40 ml IV UD PRN PRN Reason: SALINE FLUSH Last Admin: 06/04/22 06:45 Dose: 10 ml Tamsulosin HCl (Tamsulosin Hcl 0.4 Mg Capsule) 0.4 mg PO BID [facility] Last Admin: 06/03/22 21:51 Dose: 0.4 mg Venlafaxine HCl (Venlafaxine Xr 75 Mg Capsule) 75 mg PO DAILY [facility] Last Admin: 06/03/22 08:36 Dose: 75 mg Patient Problems: Active and Suspected Problems (Last Updated 06/03/22 @ 08:[address] Serafin Moreno MD) On mechanically assisted ventilation (Acute) BiPAP ventilator settings as of 06/03/2022 after in-hospital titration of settings with ABG guidance: 16/4 with a respiratory rate of 24 and FiO2 to 25% with goal SPO2 88% or more Post-poliomyelitis syndrome (Acute) Acute respiratory failure with hypoxia (Acute) Medical Necessity - Tobacco Use Smoking Status: Never smoker Tobacco Use: Non-smoker Assessment/Plan Resp failure, REstriction Pt is having improved dysnpea pt is using bipap pt has improved ventilation Pt had partial w/u as out patient but is planning on f/u w/ Dr Sosa Call for questions. All Active Problems (Last Updated 06/03/22 @ 08:[address] Serafin Moreno MD) On mechanically assisted ventilation (Acute) Post-poliomyelitis syndrome (Acute) Acute respiratory failure with hypoxia (Acute) Right patella fracture (Resolved) Closed fracture of right distal femur (Resolved) Closed intertrochanteric fracture of right hip (Resolved) Sinus tachycardia (Resolved) Fall (Acute) Fracture of right tibia and fibula (Acute) Knee effusion (Acute) Failure to thrive (Acute) Prepatellar effusion of left knee (Acute) Right knee pain (Acute) Right knee injury (Acute) Contusion of right knee (Acute) Edema of right lower leg (Acute) Knee effusion, right (Acute) Muscle spasm (Acute) Lumbar radicular pain (Acute) Degenerative scoliosis (Acute)
[2022-06-04] MEDS: Venlafaxine XR 75 MG Capsule PO (10:19)
[2022-06-04] MEDS: Pantoprazole Sodium 40 MG Tablet PO ×2 (10:19→21:21)
[2022-06-04] MEDS: Enoxaparin 40 MG/0.4 ML Syringe SC (10:19)
[2022-06-04] MEDS: Tamsulosin HCl 0.4 MG Capsule PO ×2 (10:19→21:21)
--- NOTE | 2022-06-04 10:28 | PN.HOSP_ITS ---
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 He had no active complaints and had an uneventful night. Review of systems is otherwise negative. He is awaiting the recalibration of his CPAP machine by the CPAP company tomorrow. Objective Data Objective Data Vital Signs: Vital Signs Temp Pulse Resp BP Pulse Ox O2 Del Method O2 Flow Rate 97.9 F 92 28 H 118/74 95 Bi-pap 2 06/04/22 06:32 06/04/22 06:32 06/04/22 06:32 06/04/22 06:32 06/04/22 06:32 06/04/22 06:32 06/03/22 21:58 FiO2 30 06/04/22 03:29 Oxygen Flow Rate (L/min) 2 Oxygen Delivery Method Bi-pap Weight: 145 lb 15.136 oz Body Mass Index (BMI) 23.8 Intake & Output: Intake and Output for Last 24 Hours 06/02/22 06/03/22 06/04/22 23:59 23:59 23:59 Intake Total 1060 / 1060 904 / 1104 200 / 200 Output Total 425 / 425 200 / 200 Balance 635 / 635 904 / 1104 0 / 0 Lab / Micro Data Result Diagrams: 06/04/22 05:37 06/04/22 05:37 Labs: Laboratory Results - last 24 hr 06/04/22 05:37: WBC 5.3, RBC 4.21 L, Hgb 12.6 L, Hct 41.3, MCV 98.1 H, MCH 29.9, MCHC 30.5 L, RDW Std Deviation 49.6 H, RDW Coeff of Larry 13.8, Plt Count 203, MPV 9.9, Immature Gran % (Auto) 0.400, Neut % (Auto) 71.2 H, Lymph % (Auto) 11.2 L, [place] % (Auto) 14.1 H, Eos % (Auto) 2.3, Baso % (Auto) 0.8, Absolute Neuts (auto) 3.8, Absolute Lymphs (auto) 0.59 L, Nucleated RBC % 0, Differential Comment SCANNED 06/04/22 05:37: Sodium 141, Potassium 4.2, Chloride 97 L, Carbon Dioxide 42.0 H, Anion Gap 2 L, BUN 19 H, Creatinine 0.63 L, Estim Creat Clear Calc 53.44, Est GFR (MDRD) Af Amer 161, Est GFR (MDRD) Non-Af 133, BUN/Creatinine Ratio 30.3 H, Glucose 98, Calcium 8.7 Micro: Microbiology 05/31/22 18:50 Mucosa - Nasopharyngeal Respiratory Panel (PCR) - Final ABG Data ABG results: ABG 06/04/22 06:43 Specimen Type ART Sample Site L Radial pH 7.37 Bicarbonate Actual 43.7 H Total CO2 46 Base Excess 18 H O2 Saturation 92 L O2 % 30 ABG pCO2 75.8 H* ABG pO2 70 L Stephane Test Positive Respiration Rate 22 O2 Delivery Device BiPAP Vent Mode BiLevel POC PEEP 4 Crit Call To/Read Back Yes Blood Gas Notified Whom Geovannytt Clinical Comments 06/08 Rhythm Strip Rhythm Strip: Sinus Tach Rate: 116 Ectopy: None Physical Exam Const alert, oriented x3 and no apparent distress HEENT head/scalp atraumatic and moist oral mucous membranes Eyes PERRL, EOMs intact bilaterally and conjunctivae normal Neck no lymphadenopathy and supple Resp Resp Narrative: mildly diminished breath sounds bibasally, no wheezes or crackles. On 3L of oxygen. Cardio regular rate, regular rhythm, S1 normal heart sound, S2 normal heart sound and n o murmurs GI normal to inspection, nondistended, normoactive bowel sounds, soft to palpation, non-tender and non-distended Extremity normal to inspection, full ROM and no clubbing, cyanosis or edema Neuro oriented x3, CN's II-XII intact bilaterally, moves all extremities and no focal motor deficits Neuro Narrative: Scoliosis of the spine Sensorium / Orientation: awake and alert Motor Exam: strength 5/5 throughout Psych affect normal Assessment & Plan Assessment/Plan (1) Acute respiratory failure with hypoxia: PLAN: Plan #Acute hypoxic and hypercapnic respiratory failure due to 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 this needs to be adjusted to a setting of 16/4 with a respiratory rate of 24 and decrease FiO2 to 25% with goal SpO2 of at least 88%. This will help with his breathing and help prevent any such recurrence of hypercapnia and hypoxia. * CPAP to be adjusted by CPAP company tomorrow * * #History of LAKISHA: on CPAP qhs #History of scoliosis and chronic lumbar back pain * stable. * PT.OT on board * #GERD: on PPI #Hypertension: on losartan and nifedipine. #Anxiety and depression: on venlafaxine DVT prophylaxis:lovenox Disposition:for DC home once home CPAP has been recalibrated by the company that supplies the machine, likely tomorrow Charges/Coding Visit Charges Inpatient E&M: 69134 Subs Hosp L2
[2022-06-04] MEDS: Ensure Plus High Protein 120 ML LIQUID PO (13:39)
--- NOTE | 2022-06-04 14:14 | PN.CC_ITS ---
Assessment & Plan Assessment/Plan (1) On mechanically assisted ventilation: PLAN: The patient has decided to change to [facility] for his oxygen and sleep needs. - The patient and his have requested to change their DME to [employer] which can provide both oxygen and NIV - He will use his own BiPAP machine with the settings changed to16/4 with a respiratory rate of 24 and decrease FiO2 to 25% until his sleep study can be completed - Oxygen 2 L/min at rest and sleep, 4 L/min with exertion - Follow-up in [facility] within a month after discharge I will arrange the appointment. - Dr. Gallagher has signed off. (2) Post-poliomyelitis syndrome: PLAN: Stable (3) Acute on chronic respiratory failure with hypoxia and hypercapnia: PLAN: ABG is now at goal on BiPAP at the above settings. (4) Scoliosis: QUALIFIERS: Scoliosis type: thoracogenic Spinal region: thoracolumbar Qualified Code(s): M41.35 - Thoracogenic scoliosis, thoracolumbar region PLAN: Chronic PLAN: Plan The patient may be discharged as soon as his home BiPAP machine settings can be changed to the above settings (16/4 with a respiratory rate of 24 and decrease FiO2 to 25%; note that 25% is about 1-1/4 L/min bled in or nasal O2.). He will need a machine that provides at least 24 breaths/min, however his previous download shows his spontaneous respiratory rate at night is not compromised. Subjective Subjective Patient stated that he slept well on his BiPAP last night. ABG on those settings were at goal. Objective Data Objective Data Patient was encountered standing up with his usual crutches walking to his room chair, present. On 1 L/min his O2 saturation was 83%. He was increased to 4 L/min which improved his saturation to 89% with ambulating in the room. He will likely need to be discharged on supplemental oxygen, 2 L at rest and 4 L with exertion. I will defer to respiratory's final evaluation just prior to discharge. Vital Signs: Vital Signs Temp Pulse Resp BP Pulse Ox O2 Del Method O2 Flow Rate 98.1 F 94 20 H 125/59 H 94 Nasal Cannula 2 06/04/22 11:00 06/04/22 11:00 06/04/22 12:00 06/04/22 11:00 06/04/22 12:00 06/04/22 12:00 06/04/22 12:00 FiO2 30 06/04/22 03:29 Oxygen Flow Rate (L/min) 2 Oxygen Delivery Method Nasal Cannula Weight: 145 lb 15.136 oz Body Mass Index (BMI) 23.8 Intake & Output: Intake and Output for Last 24 Hours 06/02/22 06/03/22 06/04/22 23:59 23:59 23:59 Intake Total 1060 / 1060 904 / 1104 800 / 800 Output Total 425 / 425 600 / 600 Balance 635 / 635 904 / 1104 200 / 200 Lab / Micro Data Result Diagrams: 06/04/22 05:37 06/04/22 05:37 Labs: Laboratory Results - last 24 hr 06/04/22 05:37: WBC 5.3, RBC 4.21 L, Hgb 12.6 L, Hct 41.3, MCV 98.1 H, MCH 29.9, MCHC 30.5 L, RDW Std Deviation 49.6 H, RDW Coeff of Larry 13.8, Plt Count 203, MPV 9.9, Immature Gran % (Auto) 0.400, Neut % (Auto) 71.2 H, Lymph % (Auto) 11.2 L, [place] % (Auto) 14.1 H, Eos % (Auto) 2.3, Baso % (Auto) 0.8, Absolute Neuts (auto) 3.8, Absolute Lymphs (auto) 0.59 L, Nucleated RBC % 0, Differential Comment SCANNED 06/04/22 05:37: Sodium 141, Potassium 4.2, Chloride 97 L, Carbon Dioxide 42.0 H, Anion Gap 2 L, BUN 19 H, Creatinine 0.63 L, Estim Creat Clear Calc 53.44, Est G FR (MDRD) Af Amer 161, Est GFR (MDRD) Non-Af 133, BUN/Creatinine Ratio 30.3 H, Glucose 98, Calcium 8.7 Micro: Microbiology 05/31/22 18:50 Mucosa - Nasopharyngeal Respiratory Panel (PCR) - Final ABG Data ABG results: ABG 06/04/22 06:43 Specimen Type ART Sample Site L Radial pH 7.37 Bicarbonate Actual 43.7 H Total CO2 46 Base Excess 18 H O2 Saturation 92 L O2 % 30 ABG pCO2 75.8 H* ABG pO2 70 L Stephane Test Positive Respiration Rate 22 O2 Delivery Device BiPAP Vent Mode BiLevel POC PEEP 4 Crit Call To/Read Back Yes Blood Gas Notified Whom Harsh Clinical Comments 06/08 Interpretation: BiPAP settings are at goal indicated by the above ABG, on settings of16/4 with a respiratory rate of 24 and decrease FiO2 to 25%, which should be arranged as an outpatient. Radiography Diagnostic Testing: Reviewed Rhythm Strip Rhythm Strip: Sinus Tach Rate: 116 Ectopy: None Physical Exam Narrative No change from yesterday. Charges/Coding Visit Charges Inpatient E&M: 32541 Subs Hosp L2
[2022-06-04] MEDS: NIFEdipine 90 MG Tablet PO (21:21)
[2022-06-04] MEDS: Losartan Potassium 25 MG Tablet PO (21:21)
[2022-06-05] VITALS (8 sets, daily range): BP systolic 134–146; BP diastolic 75–91; PULSE 82–105; RESP 12–24; TEMP 36.5–36.8; O2SAT 77–95
--- NOTE | 2022-06-05 03:45 | NURSING ---
Continued education given to patient regarding putting nasal canula on when up to the bathroom after removing BiPap.
[2022-06-05 06:23] LABS: Absolute Lymphocyte Count 0.66 X10^3/uL (0.83-4.51); Absolute Neutrophil Count 3.8 X10^3/uL (2.0-7.7); Basophil# 0.05 X10^3/uL; Basophil% 0.9 % (0-1); Eosinophil# 0.14 X10^3/uL; Eosinophils% 2.6 % (0-5); Hematocrit 41.2 % (40-54); Hemoglobin 12.6 g/dL (13.0-16.5); Lymphocyte # 0.66 X10^3/ul (0.83-4.51); Lymphocyte % 12.1 % (19-41); Mean Corp Hgb Conc 30.6 g/dL (32-36); Mean Corpuscular Hgb 30.1 pg (27.0-32.0); Mean Corpuscular Volume 98.6 fL (80-94); Mean Platelet Vol. 10.4 fl (6.2-12.0); Monocyte# 0.83 X10^3/uL; Monocyte% 15.2 % (0-10); NRBC Flagged by Analyzer 0 % (0-5); Neutrophil # 3.77 X10^3/uL (2.7-7.7); Platelet Count 209 K/mm3 (150-450); RBC Distribution Width CV 13.9 % (11.6-14.6); RBC Distribution Width SD 50.6 fl (35.1-43.9); Red Blood Count 4.18 M/mm3 (4.6-6.2); White Blood Count 5.5 K/mm3 (4.4-11.0)
[2022-06-05] MEDS: oxyCODONE 5 MG Tablet PO (06:35)
[2022-06-05] MEDS: Acetaminophen 325 MG Tablet 650 MG PO (06:36)
[2022-06-05 06:48] LABS: Anion Gap 2 (5-15); BUN 18 mg/dL (7-18); BUN/Creat Ratio 31.3 RATIO (10-20); Calcium,Total 9.1 mg/dL (8.5-10.1); Chloride 95 mmol/L (98-107); Creatinine, Serum 0.58 mg/dL (0.70-1.30); EST Glomerular Filtration Rate 147 mL/min (>60); Est Glom Filt Rate - Afr Amer 177 mL/min (>60); Estimated Creatinine Clearance 53.44 ml/min; Glucose 104 mg/dL (74-106); Sodium Level 139 mmol/L (136-145)
--- NOTE | 2022-06-05 08:34 | PN.CC_ITS ---
Assessment & Plan Assessment/Plan (1) Post-poliomyelitis syndrome: (2) Acute on chronic respiratory failure with hypoxia and hypercapnia: (3) Scoliosis: QUALIFIERS: Scoliosis type: thoracogenic Spinal region: thoracolumbar Qualified Code(s): M41.35 - Thoracogenic scoliosis, thoracolumbar region PLAN: Plan RECOMMENDATIONS: 1. Confirm exertional oxygen requirements 2. Verify BiPAP at home prior to discharge 3. Follow-up in 2 weeks with nurse practitioner 4. Okay to continue with baseline medications 5. Okay to discharge from a pulmonary perspective once home support is in place IMPRESSIONS: 1. 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 This is complicated by patient's concomitant scoliosis. Patient appears to be responding well to BiPAP 16 over 4 cm of water with a backup rate of 24. This is being arranged as an outpatient. Patient will likely need an ABG in the future to ensure that the CO2 retention is improving. Patient had a walking oximetry yesterday showing 2 L at rest and 4 L with exertion. Patient likely can be discharged from a pulmonary perspective with follow-up in 2 weeks with nurse practitioner. Patient is requesting transfer to our office. 2. Osteoporosis/history of fractures and falls/scoliosis/advanced age Complicates care, management, recovery and prognosis. Okay to continue with baseline medications. Patient would likely benefit from ongoing therapies to avoid falls. Opiates will complicate problem #1 and should be limited if possible. Subjective Subjective Patient did okay overnight. No acute issues were reported. Patient subjectively feels slightly improved compared to yesterday. Patient did have a walking oximetry yesterday requiring 3 L/min. Did verify with the outpatient office and they are working on home respiratory equipment. Objective Data Objective Data Vital Signs: Vital Signs Temp Pulse Resp BP Pulse Ox O2 Del Method O2 Flow Rate 36.8 C 105 H 20 H 134/91 H 93 Nasal Cannula 2 06/05/22 08:00 06/05/22 08:00 06/05/22 08:00 06/05/22 08:00 06/05/22 08:14 06/05/22 08:14 06/05/22 08:14 FiO2 30 06/05/22 04:36 Oxygen Flow Rate (L/min) [ 3 AMBULATING with Oxygen #2] Oxygen Flow Rate (L/min) [ 2 AMBULATING with Oxygen #1] Oxygen Flow Rate (L/min) [At 94 REST with Oxygen] Oxygen Flow Rate (L/min) 2 Oxygen Delivery Method Nasal Cannula Weight: 65.9 kg Body Mass Index (BMI) 23.8 Intake & Output: Intake and Output for Last 24 Hours 06/03/22 06/04/22 06/05/22 23:59 23:59 23:59 Intake Total 904 / 1104 1150 / 1150 Output Total 600 / 600 Balance 904 / 1104 550 / 550 Lab / Micro Data Attestation: I reviewed the patient's lab results. Result Diagrams: 06/05/22 05:25 06/05/22 05:25 Labs: Laboratory Results - last 24 hr 06/05/22 05:25: WBC 5.5, RBC 4.18 L, Hgb 12.6 L, Hct 41.2, MCV 98.6 H, MCH 30.1, MCHC 30.6 L, RDW Std Deviation 50.6 H, RDW Coeff of Larry 13.9, Plt Count 209, MPV 10.4, Immature Gran % (Auto) 0.200, Neut % (Auto) 69.0, Lymph % (Auto) 12.1 L, [place] % (Auto) 15.2 H, Eos % (Auto) 2.6, Baso % (Auto) 0.9, Absolute Neuts (auto) 3.8, Absolute Lymphs (auto) 0.66 L, Nucleated RBC % 0 06/05/22 05:25: Sodium 139, Potassium 4.0, Chloride 95 L, Carbon Dioxide 42.0 H, Anion Gap 2 L, BUN 18, Creatinine 0.58 L, Estim Creat Clear Calc 53.44, Est GFR (MDRD) Af Amer 177, Est GFR (MDRD) Non-Af 147, BUN/Creatinine Ratio 31.3 H, Glucose 104, Calcium 9.1 Micro: Microbiology 05/31/22 18:50 Mucosa - Nasopharyngeal Respiratory Panel (PCR) - Final Rhythm Strip Rhythm Strip: Sinus Rhythm Rate: 82 Ectopy: None Physical Exam Const alert, oriented x3 and no apparent distress HEENT head/scalp atraumatic and moist oral mucous membranes Eyes PERRL, EOMs intact bilaterally and conjunctivae normal Neck no lymphadenopathy and supple Resp Auscultation: diminished lung sounds; Negative for rales, rhonchi or wheezes Cardio regular rate, regular rhythm, S1 normal heart sound and S2 normal heart sound Heart Sounds: murmur systolic III/ crescendo mid right sternal border GI normal to inspection, nondistended, normoactive bowel sounds, soft to palpation, non-tender and non-distended Extremity normal to inspection, full ROM and no clubbing, cyanosis or edema Neuro oriented x3, CN's II-XII intact bilaterally, moves all extremities and no focal motor deficits Neuro Narrative: Scoliosis of the spine Sensorium / Orientation: awake and alert Psych cooperative and affect normal Charges/Coding Visit Charges Inpatient E&M: 89032 Subs Hosp L2
--- NOTE | 2022-06-05 10:08 | DCINST_ITS ---
Discharge Instructions Diet Discharge Diet: Low fat / Low cholesterol Activity Discharge Activity: Return to Normal Activity Dressing / Incision Call your doctor if you observe: Fever of 101 or Higher, Shortness of breath, Dizziness, Fainting spells, Swelling in the ankles, Chest pain and Increased palpitations (irregular heartbeat) Follow Up Care Test Results: Test results from this visit will be discussed in further detail at your follow- up appointment, if applicable. Discharge Plan Admission Admit Date/Time: 05/31/22 15:13 Attending Provider: Lorenzo Kitchen Primary Care Provider: Luis Medina Consulting Providers: Stacie Damico ; Eron Monsivais ; Johana Bryant Discharge Orders/Prescriptions Prescriptions: Continued oxycodone-acetaminophen 5-325 mg tablet 1 tab PO TID tamsulosin 0.4 MG capsule 0.4 mg PO BID pfxedkun-qej-FR-lycopen-lutein 1 EACH tablet 1 ea PO DAILY calcium carbonate-vitamin D3 500 mg(1,250mg) -125 unit Tablet 1 tab PO DAILY losartan 25 mg Tablet 25 mg PO DAILY diphenhydramine HCl [Benadryl] 25 mg Capsule 25 mg PO QHS PRN (Reason: Runny Nose) venlafaxine 75 mg capsule,extended release 24hr 75 mg PO DAILY nifedipine 90 mg tablet extended release 90 mg PO DAILY Referrals / Follow Up: Luis Medina MD [Primary Care Provider] - 06/15/22 11:00 am Serafin Moreno MD [Med Staff - Active Staff] - 07/04/22 7:00 am Disposition Disposition (needs filled in before D/C Order can be placed): Home, Self Care
[2022-06-05] MEDS: Venlafaxine XR 75 MG Capsule PO (10:09)
[2022-06-05] MEDS: Tamsulosin HCl 0.4 MG Capsule PO (10:10)
[2022-06-05] MEDS: Pantoprazole Sodium 40 MG Tablet PO (10:10)
[2022-06-05] MEDS: Enoxaparin 40 MG/0.4 ML Syringe SC (10:10)
--- NOTE | 2022-06-05 10:19 | PHA.DC.MR ---
Pharmacy Service has performed discharge medication reconciliation for this patient. The patient's discharge medication list was reviewed for discrepancies and discrepancies were resolved. Home Medications oxycodone-acetaminophen 5 mg-325 mg tablet 1 tab PO TID pain 04/27/17 gqqcmzpv-nqy-qdtzn acid 300 mcg-lycopene 600 mcg-lutein 300 mcg tablet 1 ea PO DAILY supplement 02/03/20 tamsulosin 0.4 mg capsule 0.4 mg PO BID prostate 02/03/20 calcium carbonate 500 mg-vitamin D3 3.125 mcg (125 unit) tablet 1 tab PO DAILY SUPPLEMENT 01/29/21 diphenhydramine HCl 25 mg capsule (Benadryl) 25 mg PO QHS PRN Runny Nose 05/31/22 losartan 25 mg tablet 25 mg PO DAILY BP 05/31/22 nifedipine 90 mg tablet,extended release 90 mg PO DAILY HEART 05/31/22 venlafaxine 75 mg capsule,extended release 24 hr 75 mg PO DAILY MOOD 05/31/22
--- NOTE | 2022-06-05 11:33 | CASEMGMT ---
Addendum entered by Severiano Dee 06/05/22 13:10: TC to Ivone @ [employer]. She will deliver portable O2 tank to pt's room shortly. Original Note: KRISHNA ABBOTT NOTE: Per Jaylene @ Dr Moreno's office/pulmonary, she has received a script for updated BIPAP settings and will fax to [facility] today. KRISHNA ABBOTT spoke w/Valencia @ [facility]. She states they will change the settings on pt's BIPAP remotely once they receive the script and they will notify pt once it has been done. Pt made aware. Pt also qualifies for O2 @ 2 l/m continuously. Script for O2 received from Dr Kitchen and referral sent to [facility] via [employer]. KRISHNA ABBOTT spoke w/Osmar @ [facility]. He was made aware pt discharging home today w/O2 and has a BIPAP from [facility] and has new order w/new BIPAP settings. Osmar asked for new BIPAP settings be sent to [facility] as well. Script w/updated BIPAP settings obtained from Jaylene @ Dr Moreno's office and sent to [facility] via [employer] at this time. Francisco BARROS RN, CM
--- NOTE | 2022-06-05 13:54 | DS.PCM_ITS ---
Providers Date of Admission: 05/31/22 Primary Care Physician: Dr. Luis Medina MD Consultations 05/31/22 17:06 Consult: Recreation Director / Pulmonary Medicine Routine Consulting Provider: Eron Monsivais Reason for Consult: Hypoxia, acute, underlying restrictive airway disease EMERGENT Consult: No MD Notified: Yes Date Notified: 05/31/22 Time Notified: 16:50 Method of Notification: Text Reason For Visit: HYPOXIA, RESTRICTIVE LUNG DISEASE Diagnosis Discharge Diagnosis (1) Post-poliomyelitis syndrome: Status: Acute Code(s): G14 - Postpolio syndrome (2) Acute on chronic respiratory failure with hypoxia and hypercapnia: Status: Chronic Code(s): J96.21 - Acute and chronic respiratory failure with hypoxia; J96.22 - Acute and chronic respiratory failure with hypercapnia (3) Scoliosis: Status: Chronic Code(s): M41.9 - Scoliosis, unspecified Qualifiers: Scoliosis type: thoracogenic Spinal region: thoracolumbar Qualified Co de(s): M41.35 - Thoracogenic scoliosis, thoracolumbar region Medications at Discharge Home Medications oxycodone-acetaminophen 5 mg-325 mg tablet 1 tab PO TID pain 04/27/17 aqmcvuiy-bzk-ioikb acid 300 mcg-lycopene 600 mcg-lutein 300 mcg tablet 1 ea PO DAILY supplement 02/03/20 tamsulosin 0.4 mg capsule 0.4 mg PO BID prostate 02/03/20 calcium carbonate 500 mg-vitamin D3 3.125 mcg (125 unit) tablet 1 tab PO DAILY SUPPLEMENT 01/29/21 diphenhydramine HCl 25 mg capsule (Benadryl) 25 mg PO QHS PRN Runny Nose 05/31/22 losartan 25 mg tablet 25 mg PO DAILY BP 05/31/22 nifedipine 90 mg tablet,extended release 90 mg PO DAILY HEART 05/31/22 venlafaxine 75 mg capsule,extended release 24 hr 75 mg PO DAILY MOOD 05/31/22 Hospital Course Operations None Procedures 2-D Echocardiogram Summary of Care Provided Minutes Spent on Discharge: 42 Hospital Course: Per HPI: The patient is a 77 y/o M w/ PMHx: Anxiety and Depression, LAKISHA, HTN, Chronic lumbar back pain with radiculopathy and degenerative scoliosis, BPH, 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 Gallagher with outpatient evaluation and again suspected underlying restrictive lung disease secondary to history of poliomyelitis previously with sudden onset on day of presentation while in the shower severe dyspnea and per report increased lower extremity swelling distally especially in his feet prompting EMS call with noted oxygenation at that time 82% prompting transition to the ED for evaluation.? Patient denies any recent significant orthopnea or weight gain, cough, upper respiratory type symptoms, fevers or chills. Work-up in the ED included T 98, heart rate 114, BP 134/77, respiratory rate 18, initially 82% on room air with improvement to 97% on 3 L nasal cannula, CBC with WC 6.1, hemoglobin 14, platelet 227 with lymphopenia, D- dimer 0.33, BMP with carbon dioxide 38, BUN/creatinine 17/0.52, glucose 135, troponin 15, BNP 18, chest x-ray with moderate degree dextroconvex scoliosis, stable volume loss of the right hemithorax, mild increased markings at the right lung base suggestive of atelectasis.? In the ED patient administered Lasix 40 mg IV x1 secondary to concerns for possible overload although BNP normal range.? While in the emergency room just prior to evaluation patient was noted to be more confused than he had been previously although he was able to answer all orientation questions but was frequently leaning forward and rocking and picking in his feet therefore to be cautious especially given increasing hypoxia and oxygen requirement in the ED ABG was obtained and significantly abnormal with pH 7.17, bicarb 43.9, PCO2 120.2, PO2 110 performed on 6 L nasal cannula therefore requested that patient be placed on BiPAP with planned ICU admission instead of initial plan for telemetry. Hospital Course: 1. Acute hypoxic and hypercapnic respiratory failure secondary to restrictive lung disease from childhood polio/LAKISHA?77-year-old male presented to the hospital with shortness of breath. He has been having worsening dyspnea over the last 2 months following with his news correspondent. He is now currently on 2 to 3 L nasal cannula which she is tolerating fairly well and he needs increased oxygen with ambulation. The news correspondent here recommended changing his home CPAP settings and will follow him as an outpatient. I discussed with him the possibility for discharge today he expressed understanding of the risks and benefits of going home and he would like to go home today. Of note there is no signs of infection and his respiratory panel was unremarkable. 2. History of scoliosis, chronic lumbar back pain, GERD, hypertension, anxiety, depression all chronic medical conditions which complicate her. His home medications were continued where appropriate Physical Exam Narrative General: Alert, Oriented x3, Cooperative, No apparent distress HEENT: Atraumatic, PERRLA, EOMI, Normocephalic Oral: Moist Mucosa Neck: Supple, No JVD Lungs: Diminished, Normal air movement, No rhonchi, No wheeze, No rales Cardiovascular: Regular rate, Regular Rhythm, Normal S1, Normal S2, No murmurs Abdomen: Soft, Non Tender, Non-Distended, No Hepato-splenomegaly Extremities: No edema, Capillary Refill Less than 3 Seconds Skin: No rashes, No breakdown Musculoskeletal: No Tenderness to Palpation of Joints or Extremities Neurological: Cranial nerves II-XII grossly intact, Motor Exam 5/5 strength throughout, Sensory exam intact to light touch and pain Psych/Mental Status: Normal Affect, Appropriate Weight / BMI Weight Weight: 145 lb 4.554 oz Body Mass Index (BMI) 23.8 ABG / Lab / Microbiology Data Result Diagrams: 06/05/22 05:25 06/05/22 05:25 Laboratory: Laboratory Results - last 24 hr 06/05/22 05:25: WBC 5.5, RBC 4.18 L, Hgb 12.6 L, Hct 41.2, MCV 98.6 H, MCH 30.1, MCHC 30.6 L, RDW Std Deviation 50.6 H, RDW Coeff of Larry 13.9, Plt Count 209, MPV 10.4, Immature Gran % (Auto) 0.200, Neut % (Auto) 69.0, Lymph % (Auto) 12.1 L, Johnson % (Auto) 15.2 H, Eos % (Auto) 2.6, Baso % (Auto) 0.9, Absolute Neuts (auto) 3.8, Absolute Lymphs (auto) 0.66 L, Nucleated RBC % 0 06/05/22 05:25: Sodium 139, Potassium 4.0, Chloride 95 L, Carbon Dioxide 42.0 H, Anion Gap 2 L, BUN 18, Creatinine 0.58 L, Estim Creat Clear Calc 53.44, Est GFR (MDRD) Af Amer 177, Est GFR (MDRD) Non-Af 147, BUN/Creatinine Ratio 31.3 H, Glucose 104, Calcium 9.1 Microbiology: Microbiology 05/31/22 18:50 Mucosa - Nasopharyngeal Respiratory Panel (PCR) - Final D/C Instructions Discharge Diet: Low fat / Low cholesterol Call your doctor if you observe: Fever of 101 or Higher, Shortness of breath, Dizziness, Fainting spells, Swelling in the ankles, Chest pain and Increased palpitations (irregular heartbeat) Meaningful Use Info Meaningful Use Diagnoses (Choose all that apply): None applicable Discharge Plan Admission Admit Date/Time: 05/31/22 15:13 Attending Provider: Lorenzo Kitchen Primary Care Provider: Luis Medina Consulting Providers: Stacie Damico ; Eron Monsivais ; Johana Bryant Discharge Orders/Prescriptions Prescriptions: Continued oxycodone-acetaminophen 5-325 mg tablet 1 tab PO TID tamsulosin 0.4 MG capsule 0.4 mg PO BID lambrhof-pjw-QD-lycopen-lutein 1 EACH tablet 1 ea PO DAILY calcium carbonate-vitamin D3 500 mg(1,250mg) -125 unit Tablet 1 tab PO DAILY losartan 25 mg Tablet 25 mg PO DAILY diphenhydramine HCl [Benadryl] 25 mg Capsule 25 mg PO QHS PRN (Reason: Runny Nose) venlafaxine 75 mg capsule,extended release 24hr 75 mg PO DAILY nifedipine 90 mg tablet extended release 90 mg PO DAILY Referrals / Follow Up: Luis Medina MD [Primary Care Provider] - 06/15/22 11:00 am Serafin Moreno MD [Med Staff - Active Staff] - 07/04/22 7:00 am Disposition Disposition (needs filled in before D/C Order can be placed): Home, Self Care Charges/Coding Visit Charges Inpatient E&M: 10460 Disch Hosp >30min
--- NOTE | 2022-06-28 14:28 | CASEMGMT ---
KRISHNA CM: Pt returned previously left VM from discharge follow-up call made by KRISHNA Cole. Pt states he was set up with his O2 thru [employer] without any issues and he attended his f/u appointment with Dr. Moreno yesterday. Pt denies any questions or concerns related to his discharge and states he has been doing well. Beatriz Campos RN CM
== END 2022-06-05 13:51 | disposition home or self-care (01) | DRG 91 ==
LOC: ED 14:47 → ICU 18:08 → MS3 06-02 12:25
PROVIDERS: Student in an Organized Health Care Education/Training Program; Admitting Provider Family Medicine; Emergency Provider Emergency Medicine; PCP Family Medicine; Visit Provider Family Medicine
DX: G14 Postpolio syndrome (principal); J96.01 Acute respiratory failure with hypoxia; J96.02 Acute respiratory failure with hypercapnia; M41.35 Thoracogenic scoliosis, thoracolumbar region; I10 Essential (primary) hypertension; K21.9 Gastro-esophageal reflux disease without esophagitis; G47.33 Obstructive sleep apnea (adult) (pediatric); F41.9 Anxiety disorder, unspecified; N40.0 Benign prostatic hyperplasia without lower urinary tract symptoms; F32.A Depression, unspecified; G89.29 Other chronic pain; R29.6 Repeated falls; Z79.899 Other long term (current) drug therapy
CPT/HCPCS: 36415; 36600; 71046; 71275; 80048; 80053; 80061; 82803; 82962; 83036; 83735; 83880; 84145; 84443; 84484; 85025; 85379; 87633; 93005; 93306; 94002; 94003; 94640; 94668; 94762; 97162; 97165; 97530; 97802; 99252; 99285; Q9967; A4216; G0463; J1940

== ENCOUNTER → 2022-07-04 | Outpatient (CLI) | payer MEDICARE, SELFPAY ==
[2022-07-04 16:23] LABS: PSA,Total- Diagnostic 0.15 ng/mL (0.0-4.0)
== END | disposition home or self-care (01) ==
LOC: LAB 14:57
PROVIDERS: PCP Family Medicine; Visit Provider Registered Nurse
DX: C61 Malignant neoplasm of prostate (principal)
CPT/HCPCS: 36415; 84153

== ENCOUNTER → 2022-07-05 | Outpatient (CLI) | payer MEDICARE, SELFPAY ==
--- NOTE | 2022-07-06 10:14 | PFTCOMP_ITS ---
COMPLETE PULMONARY FUNCTION TEST INTERPRETATION Brief HPI: Patient is a 77-year-old male, currently under the care of Dr. Moreno, who presents to [facility] for complete pulmonary function tests secondary to diagnosis of postpolio syndrome. Respiratory therapist reports good effort and reproducible results. Interpretation: Lung volumes by body plethysmography show a severely decreased total lung capacity at 2.34 L, 45% predicted. All other lung volumes are reduced symmetrically. MIP and MEP are significantly reduced at 46 and 55% predicted No previous pulmonary function tests were available for review. Impression: Severe restrictive ventilatory defect with evidence of proportional muscle weakness
== END | disposition home or self-care (01) ==
PROVIDERS: PCP Family Medicine; Referring Provider Internal Medicine; Visit Provider Internal Medicine
DX: J96.11 Chronic respiratory failure with hypoxia (principal); J96.12 Chronic respiratory failure with hypercapnia; G14 Postpolio syndrome; G47.33 Obstructive sleep apnea (adult) (pediatric)
CPT/HCPCS: 94726; 97162

== ENCOUNTER → 2022-07-31 | Outpatient (CLI) | payer MEDICARE, SELFPAY | END | disposition home or self-care (01) | LOC: SL 21:02 | PROVIDERS: PCP Family Medicine; Referring Provider Internal Medicine; Visit Provider Internal Medicine | DX: G47.33 Obstructive sleep apnea (adult) (pediatric) (principal) | CPT/HCPCS: 95811 ==

== ENCOUNTER → 2022-08-15 | Outpatient (CLI) | payer MEDICARE, SELFPAY | END | disposition home or self-care (01) | PROVIDERS: PCP Family Medicine; Referring Provider Urology; Visit Provider Urology | DX: R31.29 Other microscopic hematuria (principal) | CPT/HCPCS: 87086 ==

== ENCOUNTER → 2022-08-23 | Outpatient (CLI) | payer MEDICARE, SELFPAY ==
--- NOTE | 2022-08-23 17:03 | CT_ITS ---
STUDY: CT ABDOMEN AND PELVIS WITHOUT CONTRAST REASON FOR EXAM: Male, 77 years old. HEMATURIA RADIATION DOSAGE (If Supplied By Facility): CTDIvol = ( 17.63 ) mGy, DLP = ( 717.83 ) mGycm TECHNIQUE: Transaxial images were obtained from the dome of the diaphragm to the symphysis pubis without oral contrast, and without intravenous contrast. Sagittal and coronal images were reconstructed. Individualized dose optimization techniques were used for this CT. COMPARISON: None. FINDINGS: Minor bibasilar atelectasis.. The visualized portions of the heart are within normal limits. Mild coronary artery calcification and small pericardial effusion. Normal liver. Contracted thick-walled gallbladder without calcified stones likely no significance.. Normal spleen. Normal pancreas. Normal bilateral adrenal glands. No evidence for renal obstruction or definitive evidence for renal mass given the limited unenhanced nature of the study . Nonspecific diffuse gastric distention and ileus with fecal retention in the colon. Diverticular disease of the descending and sigmoid colon without evidence for acute diverticulitis. No evidence for acute appendicitis. . . Mild atherosclerotic change of the aorta without evidence for. Normal inferior vena cava. Normal retroperitoneum. There is diffusely thick-walled bladder in association with prostatic enlargement There are multiple layering tiny left renal calculi or calcification of the dependent portion of the bladder wall. Normal abdominal wall. Lumbar spine demonstrates scoliosis and degenerative change. Postsurgical changes of the right hip No significant change since prior exam CT/Abdomen/Pelvis without Cont IMPRESSION: Tiny calcifications along the dependent wall of the bladder or possibly bladder wall calcification. No evidence for renal obstruction or ureteral calculus Nonspecific gastric distention and diffuse ileus.. Diverticular disease of the colon without evidence for acute diverticulitis Electronically Signed: Veto Martin MD at 22:30 EDT Reading Location ID and State: [facility] / [place] , Service support ,
== END | disposition home or self-care (01) ==
PROVIDERS: PCP Family Medicine; Referring Provider Urology; Visit Provider Urology
DX: R31.29 Other microscopic hematuria (principal)
CPT/HCPCS: 74176

== ENCOUNTER → 2022-09-01 | Outpatient (CLI) | payer MEDICARE, SELFPAY ==
[2022-09-01 09:06] LABS: Allen Test Positive; Base Excess 17 mmol/L (-2 to +2); Bicarbonate 41.8 mmol/L (22-26); Blood Gas Specimen Type ART; O2 Delivery Device Cannula; PO2 51 mmHG (75-100); SITE R Brach; SO2 84 % (95-99); Total Carbon Dioxide 44 mmol/L; pCO2 67.5 mmHg (35-45)
== END | disposition home or self-care (01) ==
LOC: PSN 08:24
PROVIDERS: PCP Family Medicine; Referring Provider Internal Medicine; Visit Provider Internal Medicine
DX: J96.11 Chronic respiratory failure with hypoxia (principal); J96.12 Chronic respiratory failure with hypercapnia; G14 Postpolio syndrome; G47.33 Obstructive sleep apnea (adult) (pediatric)
CPT/HCPCS: 36600; 82803

== ENCOUNTER 2022-10-11 06:21 | Day surgery (SDC) | payer MEDICARE, SELFPAY ==
[2022-10-11] VITALS (7 sets, daily range): BP systolic 111–137; BP diastolic 66–91; PULSE 89–101; RESP 16–19; TEMP 36–36.6; O2SAT 95–100; BMI 22.7
[2022-10-11] MEDS: Lactated Ringers 1,000 ML 15 ML IV (07:03)
--- NOTE | 2022-10-11 08:03 | HP.PCM_ITS ---
HPI - General General Date of Service: 10/11/22 Chief Complaint: Bladder stones HPI Narrative BERNARDA JOSEPH, is a 77 M who presents for removal of multiple large bladder stones [facility] Medical History (Updated 10/04/22 @ 10:23 by Fior Roa) Acute on chronic respiratory failure with hypoxia and hypercapnia Alcohol use Anxiety Arthritis Back pain BiPAP (biphasic positive airway pressure) dependence Bladder disease Cancer Chronic respiratory failure with hypoxia and hypercapnia Claustrophobia Degenerative scoliosis Depression History of CHF (congestive heart failure) History of diverticulitis History of echocardiogram History of edema History of pain when walking History of stress test Hypertension Lumbar radicular pain Non-smoker On home oxygen therapy On mechanically assisted ventilation Post-polio syndrome Post-poliomyelitis syndrome Redness of skin Scoliosis Segmental dysfunction of thoracic region Uses crutches Wears glasses Home Medications oxycodone-acetaminophen 5 mg-325 mg tablet 1 tab PO TID pain 04/27/17 [History Last Taken 05/31/22 05:30] etglrtyf-hpp-bddal acid 300 mcg-lycopene 600 mcg-lutein 300 mcg tablet 1 ea PO DAILY supplement 02/03/20 [History Last Taken 05/31/22] tamsulosin 0.4 mg capsule 0.4 mg PO BID prostate 02/03/20 [History Last Taken 05/31/22 07:30] calcium carbonate 500 mg-vitamin D3 3.125 mcg (125 unit) tablet 1 tab PO DAILY SUPPLEMENT 01/29/21 [History Last Taken 05/31/22] diphenhydramine HCl 25 mg capsule (Benadryl) 25 mg PO QHS PRN Runny Nose 05/31/22 [History Last Taken 05/30/22] losartan 25 mg tablet 25 mg PO QHS BP 05/31/22 [History Last Taken 05/30/22 22:30] nifedipine 90 mg tablet,extended release 90 mg PO QHS HEART 05/31/22 [History Last Taken 05/30/22 22:30] venlafaxine 75 mg capsule,extended release 24 hr 75 mg PO DAILY MOOD 05/31/22 [History Last Taken 05/31/22 07:30] Allergy/AdvReac Type Severity Reaction Status Date / Time metronidazole [From Flagyl] AdvReac Nausea/Vom/ Verified 10/11/22 07:01 Diarrhea DECONGESTANTS Allergy TACHYCARDIA Uncoded 10/04/22 10:05 Family History Father Myocardial infarction Heart disease Mother Shy-Drager syndrome Other CVA (cerebral vascular accident) Surgical History (Updated 10/04/22 @ 10:23 by Fior Roa) H/O adenoidectomy H/O spinal fusion Hip fracture, right History of cardiac catheterization History of open reduction and internal fixation (ORIF) procedure History of uvulectomy Hx of cystoscopy Hx of lithotripsy Right tibial fracture Social History household members: spouse housing: house Smoking Status: Never smoker substance use type: does not use Vital Signs Vital Signs Vital Signs: 10/11/22 07:04 10/11/22 07:04 Temperature 96.8 F L Temperature Source Temporal Pulse Rate 89 Respiratory Rate 19 H Respiratory Pattern Normal Blood Pressure 131/77 H Blood Pressure Mean 95 Blood Pressure Source Monitor Blood Pressure Position Semi-Fowlers Blood Pressure Location Left Arm Pulse Ox 95 Oxygen Delivery Method Room Air Weight Weight: 62 kg Body Mass Index (BMI) 22.7
--- NOTE | 2022-10-11 08:04 | DCINST_ITS ---
Discharge Instructions Diet Discharge Diet: No restrictions Activity Discharge Activity: Return to Normal Activity Follow Up Care Please Follow Up With: Claudio Garcia MD When: 4 weeks for post op check Test Results: Test results from this visit will be discussed in further detail at your follow- up appointment, if applicable. Discharge Plan Admission Primary Reason for Your Visit: Removal of bladder stones Attending Provider: Claudio Garcia Primary Care Provider: Luis Medina Discharge Orders/Prescriptions Prescriptions: Continued oxycodone-acetaminophen 5-325 mg tablet 1 tab PO TID tamsulosin 0.4 MG capsule 0.4 mg PO BID ayrxjdgx-gia-KN-lycopen-lutein 1 EACH tablet 1 ea PO DAILY calcium carbonate-vitamin D3 500 mg(1,250mg) -125 unit Tablet 1 tab PO DAILY losartan 25 mg Tablet 25 mg PO QHS diphenhydramine HCl [Benadryl] 25 mg Capsule 25 mg PO QHS PRN (Reason: Runny Nose) venlafaxine 75 mg capsule,extended release 24hr 75 mg PO DAILY nifedipine 90 mg tablet extended release 90 mg PO QHS Referrals / Follow Up: Luis Medina MD [Primary Care Provider] - Claudio Garcia MD [Med Staff - Active Staff] - Disposition Disposition (needs filled in before D/C Order can be placed): Home, Self Care
[2022-10-11] MEDS: Cefazolin 2 GM in 0.9% Normal Saline 100 ML IV (08:25)
--- NOTE | 2022-10-11 08:50 | PCM.OPRPT ---
Report of Operation Date of Procedure: 10/11/22 Pre-Operative Diagnosis: Bladder stones BPH with obstruction and trabeculated bladder Post-Operative Diagnosis: The same Surgery/Procedure Performed:: Cystoscopy and cystolitholapaxy Description of Surgical Findings:: This is a 77-year-old male with a history of BPH with obstruction history of prostate cancer treated with radiation therapy in the past who presents with difficulty with urination frequency recurrent infections. On cystoscopy examination he was found to have multiple stones within the base of the bladder. 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 So discussing risk and benefits we decided not to do a TURP and is can do a cystolitholapaxy Patient was taken back to the operating room at a smooth induction of MAC local he was placed in dorsolithotomy position. Went to the bladder with a 21 Japanese rigid cystourethroscope the penis and testicles were prepped and draped in usual sterile fashion he was in dorsolithotomy position along the course of the urethra I went in when a 21 Japanese cystoscope little bit tight in the beginning but then it was opened up but there was no strictures along the channel. 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 Is very possible he can get more stones again if he does we could consider doing a like a limited TURP to open up the prostate channel. Bladder was drained the cystoscope scope was removed cystolitholapaxy with was performed all the stones were removed and he was taken back to the PACU in good condition he will follow-up in about a month for checkup. Surgeon: Claudio Garcia Type of Anesthesia: General Drains: none Estimated Blood Loss (mL): 0 Admit VTE Documentation VTE Present on Admission: No VTE Mechan Device Prophylaxis: SCD's VTE Pharm Prophylaxis ordered?: No
== END 2022-10-11 10:25 | disposition home or self-care (01) ==
LOC: SDC 06:22 → AC 06:23
PROVIDERS: PCP Family Medicine; Referring Provider Urology; Visit Provider Urology
PROC: (CPT 52317; principal; 2022-10-11 08:15)
DX: N21.0 Calculus in bladder (principal); I11.0 Hypertensive heart disease with heart failure; I50.9 Heart failure, unspecified; N40.1 Benign prostatic hyperplasia with lower urinary tract symptoms; N13.8 Other obstructive and reflux uropathy; N32.89 Other specified disorders of bladder; M41.80 Other forms of scoliosis, site unspecified; F41.9 Anxiety disorder, unspecified; F32.A Depression, unspecified; Z79.899 Other long term (current) drug therapy; Z99.81 Dependence on supplemental oxygen
CPT/HCPCS: 52317; 00910; J7120; J2405

== ENCOUNTER → 2022-10-31 | Outpatient (CLI) | payer MEDICARE, SELFPAY ==
[2022-10-31 13:55] LABS: PSA,Total- Diagnostic 0.19 ng/mL (0.0-4.0)
== END | disposition home or self-care (01) ==
PROVIDERS: PCP Family Medicine; Referring Provider Registered Nurse; Visit Provider Registered Nurse
DX: C61 Malignant neoplasm of prostate (principal)
CPT/HCPCS: 36415; 84153

== ENCOUNTER 2023-04-19 08:19 | Day surgery (SDC) | payer MEDICARE, SELFPAY ==
--- NOTE | 2023-04-18 09:47 | NURSING ---
anesthesia aware that pt may need bipap after colonoscopy- dr rodríguez wanted resp therapy to be called and they were called and made aware that a bipap may be needed
--- OUTSIDE RECORDS SUMMARY | 2023-04-19 08:22 | XMS RPT_ITS | CCD ---
Author Name Unknown Address [address] [place] [address] Organization [facility] Care Team Providers Care Classroom Instructor Name Role Phone Jo Bartlett Unavailable Jo Bartlett Unavailable Jaylyn Mercedes Unavailable Adam Luis Armando Unavailable Unavailable Adam, Luis Armando L Unavailable Unavailable Adam, Luis Armando Unavailable Unavailable Brian Saucedo Unavailable Unavailable Adam, Luis Armando L Unavailable Unavailable Unavailable Unavailable Unavailable Adam Luis Armando Serafin Primary Care Unavailable Adam, Luis Armando Serafin Attending Unavailable Adam, Luis Armando Serafin Referring Unavailable Adam, Luis Armando Serafin Primary Care Unavailable Adam, Luis Armando Serafin Attending Unavailable Adam, Luis Armando Serafin Referring Unavailable Adam, Luis Armando Serafin Primary Care Unavailable Adam, Luis Armando Serafin Attending Unavailable Adam, Luis Armando Serafin Referring Unavailable Adam, Luis Armando Serafin Primary Care Unavailable Adam, Luis Armando Serafin Attending Unavailable Adam, Luis Armando Serafin Referring Unavailable Adam, Luis Armando Serafin Primary Care Unavailable Adam, Luis Armando Serafin Attending Unavailable Adam, Luis Armando Serafin Referring Unavailable Luis Armando Medina MD Primary Care Provider Luis Armando Medina MD Unavailable [phone] ADAMJERSON RANKINLAS L Attending Unavailable ADAM, LUIS ARMANDO L Referring Unavailable ADAM, LUIS ARMANDO L Primary Care Unavailable JERSON MEDINALAS L Attending Unavailable ADAM, LUIS ARMANDO L Primary Care Unavailable ADAM, LUIS ARMANDO L Attending Unavailable LUIS ARMANDO MEDINA Primary Care Unavailable Allergies Allergy Classification Reported Allergen(s) Allergy Type Date of Onset Reaction(s) Facility Nitroimidazoles (antibiotic) (5 sources) metroNIDAZOLE; Translations: [Flagyl] Drug Allergy Nausea [facility] Work Phone: NSAIDs (5 sources) meloxicam; Translations: [meloxicam] Drug Allergy Chest Pain [facility] Work Phone: (7 sources) metroNIDAZOLE Drug Allergy 6 Nausea [facility] Work Phone: (20 sources) meloxicam; Translations: [meloxicam] Drug Allergy 3 Chest Pain, Other [facility] (20 sources) metroNIDAZOLE; Translations: [Flagyl] Drug Allergy 3 Nausea Only [facility] Work Phone: (1 source) metroNIDAZOLE; Translations: [METRONIDAZOLE] Drug Allergy 3 [facility] 3 Repository Medications Current Medications Medication Drug Class(es) Dates Sig (Normalized) Sig (Original) acetaminophen 325 mg / oxyCODONE hydrochloride 5 mg oral tablet (20 sources) Opioid Agonist Start: 12-05-2022 take 1 tablet by mouth three times daily oxyCODONE-acetami nophen (Percocet) 5-325 mg tablet Indications: Post-polio syndrome Take 1 tablet by mouth 3 times a day. 90 tablet 0 12/05/2022 Active Completed/Discontinued Medications Medication Drug Class(es) Dates Sig (Normalized) Sig (Original) [id number] 200 actuat albuterol 0.09 mg/actuat metered dose inhaler (6 sources) beta2-Adrenergic Agonist Start: 01-21-2022 Albuterol Sulfate HFA 108 (90 Base) MCG/ACT Inhalation Aerosol Solution Quantity: 8 Refills: 0 Ordered: 22-Jan-2022 DO Start : 21-Jan-2022 Active bicalutamide 50 mg oral tablet (1 source) Androgen Receptor Inhibitor take 1 tablet by mouth once daily Bicalutamide 50 MG Oral Tablet Take 1 tablet daily Refills: 0 DO Active ZyrTEC Allergy TABS (3 sources) Histamine-1 Receptor Antagonist ZyrTEC Allergy TABS Take 1 tablet daily Refills: 0 DO Active Disability Placard (20 sources) Start: 02-24-2020 End: 03-22-2022 Disability Placard new requisition for 5 years Quantity: 1 Refills: 0 Ordered: 24-Feb-2020 Luis Armando Medina MD Start : 24-Feb-2020 End : 22-Mar-2022 Complete Problems Active Problems Problem Classification Problem Date Documented Date Episodic/Chronic Cancer of prostate (20 sources) Malignant tumor of prostate; Translations: [Malignant neoplasm of prostate] Chronic Disorders of lipid metabolism (20 sources) Serum cholesterol raised ; Translations: [Unspecified disorder of lipoid metabolism] Chronic Diverticulosis and diverticulitis (20 sources) Diverticulitis of colon; Translations: [Diverticulitis of colon (without mention of hemorrhage)] Chronic Essential hypertension (20 sources) Hypertensive disorder; Translations: [Unspecified essential hypertension] Onset: 09-07-2022 12-15-2022 Chronic Mood disorders (20 sources) Mild major depression, single episode; Translations: [Major depressive affective disorder, single episode, mild] Onset: 09-07-2022 09-07-2022 Chronic Nutritional deficiencies (20 sources) Vitamin D deficiency; Translations: [Unspecified vitamin D deficiency] Chronic Osteoporosis (4 sources) Osteoporosis; Translations: [Age-related osteoporosis without current pathological fracture] Onset: 08-13-2015 08-13-2015 Chronic Other acquired deformities (4 sources) Scoliosis deformity of spine; Translations: [Other forms of scoliosis, thoracolumbar region] Onset: 12-06-2015 12-06-2015 Chronic Other circulatory disease (20 sources) Raynaud's disease; Translations: [Raynaud's syndrome] Chronic Other [employer] infection and poliomyelitis (20 sources) Post poliomyelitis syndrome; 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] Onset: 12-15-2022 12-15-2022 Chronic Other connective tissue disease (20 sources) Triggering of digit; Translations: [Trigger finger (acquired)] Episodic Other diseases of bladder and urethra (20 sources) Spasm of bladder; Translations: [Other specified disorders of bladder] Onset: 09-07-2022 09-07-2022 Chronic Other diseases of bladder and urethra (2 sources) Other specified disorders of bladder; Translations: [Other specified disorders of bladder] Onset: 09-07-2022 Chronic Other diseases of bladder and urethra (3 sources) Spasm of bladder; Translations: [Spastic bladder] Episodic Other hereditary and degenerative nervous system conditions (2 sources) Hereditary essential tremor; Translations: [Essential and other specified forms of tremor] Chronic Other injuries and conditions due to external causes (20 sources) H/O: fracture; Translations: [Personal history of traumatic fracture] Episodic Other lower respiratory disease (11 sources) Dyspnea; Translations: [Shortness of breath] Episodic Other lower respiratory disease (8 sources) Restrictive lung disease; Translations: [Other diseases of lung, not elsewhere classified] Episodic Other male genital disorders (2 sources) Impotence; Translations: [Erectile dysfunction] Chronic Other male genital disorders (20 sources) Male erectile dysfunction, unspecified; Translations: [Erectile dysfunction] Chronic Other screening for suspected conditions (not mental disorders or infectious disease) (20 sources) Patient encounter status; Translations: [Special screening for malignant neoplasms of colon] Onset: 12-15-2022 12-15-2022 Episodic Other upper respiratory disease (20 sources) Allergic rhinitis; Translations: [Allergic rhinitis, cause unspecified] Chronic Residual codes; unclassified (20 sources) Obstructive sleep apnea syndrome; Translations: [Obstructive sleep apnea (adult)(pediatric)] Chronic Residual codes; unclassified (20 sources) Body mass index 20-24 - normal; Translations: [Body Mass Index between 19-24, adult] Episodic Unclassified (8 sources) Aftercare ; Translations: [Encounter for other orthopedic aftercare] Onset: 08-13-2015 08-25-2015 Unclassified (4 sources) Postoperative physical examination; Translations: [Encounter for other specified surgical aftercare] Onset: 01-30-2017 01-30-2017 Past or Other Problems Problem Classification Problem Date Documented Date Episodic/Chronic Complication of device; implant or graft (4 sources) Other mechanical complication of other internal orthopedic devices, implants and grafts, initial encounter; Translations: [Other mechanical complication of other internal orthopedic devices, implants and grafts, initial encounter] Onset: 6 01-06-2016 Episodic Fracture of lower limb (8 sources) Nondisplaced fracture of medial condyle of right femur, initial encounter for closed fracture; Translations: [Displaced transverse fracture of right patella, initial encounter for closed fracture] Onset: 6 07-21-2015 Episodic Fracture of neck of femur (hip) (8 sources) Displaced intertrochanteric fracture of right femur, subsequent encounter for closed fracture with routine healing; Translations: [Displaced intertrochanteric fracture of right femur, initial encounter for closed fracture] Onset: 7 01-30-2017 Episodic Joint disorders and dislocations; trauma-related (8 sources) Subluxation complex (vertebral); Translations: [Subluxation complex (vertebral) of lumbar region] Onset: 6 Resolved: 6 03-02-2016 Episodic Other aftercare (2 sources) Encounter for therapeutic drug level monitoring; Translations: [Encounter for therapeutic drug level monitoring] Onset: 3 Episodic Other bone disease and musculoskeletal deformities (12 sources) Segmental and somatic dysfunction; Translations: [Segmental and somatic dysfunction of lumbar region] Onset: 6 03-02-2016 Episodic Other [employer] infection and poliomyelitis (4 sources) H/O: poliomyelitis; Translations: [Personal history of poliomyelitis] Onset: 6 07-21-2015 Episodic Other connective tissue disease (4 sources) Bursitis of knee; Translations: [Other bursitis of knee, right knee] Onset: 6 01-06-2016 Episodic Other non-traumatic joint disorders (8 sources) Knee pain; Translations: [Hip pain] Onset: 6 12-23-2015 Episodic Spondylosis; intervertebral disc disorders; other back problems (4 sources) Low back pain; Translations: [Low back pain] Onset: 7 01-25-2017 Episodic Unclassified (4 sources) Patient encounter status; Translations: [Medicare annual wellness visit, initial] Unclassified (1 source) Onset: 3 09-07-2022 NEGATED: Highlighted row has not occurred!Residual codes; unclassified (18 sources) Disease Episodic Results Test Name Value Interpretation Reference Range Facil ity Vital Signs Date Time Vital Sign Value Performing Clinician Facility 12-15-2022 15:31-0400 Body height 162.6 cm Luis Armando Medina MD Work Phone: [facility] 12-15-2022 15:31-0400 Body mass index (BMI) [Ratio] 24.37 kg/m2 Luis Armando Medina MD Work Phone: [facility] 12-15-2022 15:31-0400 Body weight 64.41 kg Luis Armando Medina MD Work Phone: [facility] 12-15-2022 15:31-0400 Diastolic blood pressure 90 mm[Hg] Luis Armando Medina MD Work Phone: [facility] 12-15-2022 15:31-0400 Heart rate 103 /min Luis Armando Medina MD Work Phone: [facility] 12-15-2022 15:31-0400 SaO2% (BldA) [Mass fraction] 93 % Luis Armando Medina MD Work Phone: [facility] 12-15-2022 15:31-0400 Systolic blood pressure 162 mm[Hg] Luis Armando Medina MD Work Phone: [facility] 06-08-2022 15:10-0500 Body height 165.1 cm Luis Armando L Adam Work Phone: [facility] Work Phone: 06-08-2022 15:10-0500 Body mass index (BMI) [Ratio] 24.91 kg/m2 Luis Armando Smith Adam Work Phone: [facility] Work Phone: 06-08-2022 15:10-0500 Body surface area Derived from formula 1.75 m2 Luis Armando Medina Work Phone: [facility] Work Phone: 06-08-2022 15:10-0500 Body weight 67.9 kg Luis Armando L Adam Work Phone: [facility] Work Phone: 06-08-2022 15:10-0500 Diastolic blood pressure 80 mm[Hg] Luis Armando Medina Work Phone: [facility] Work Phone: 06-08-2022 15:10-0500 Heart rate 102 /min Luis Armando L Adam Work Phone: [facility] Work Phone: 06-08-2022 15:10-0500 Systolic blood pressure 128 mm[Hg] Luis Armando L Adam Work Phone: [facility] Work Phone: 03-09-2022 15:14-0500 Body height 165.1 cm Luis Aramndo L Adam Work Phone: [facility] Work Phone: 03-09-2022 15:14-0500 Body mass index (BMI) [Ratio] 24.73 kg/m2 Luis Armando L Adam Work Phone: [facility] Work Phone: 03-09-2022 15:14-0500 Body surface area Derived from formula 1.74 m2 Luis Armando L Adam Work Phone: [facility] Work Phone: 03-09-2022 15:14-0500 Body weight 67.4 kg Luis Armando L Adam Work Phone: [facility] Work Phone: 03-09-2022 15:14-0500 Diastolic blood pressure 100 mm[Hg] Luis Armando L Adam Work Phone: [facility] Work Phone: 03-09-2022 15:14-0500 Heart rate 78 /min Luis Armando L Adam Work Phone: [facility] Work Phone: 03-09-2022 15:14-0500 Systolic blood pressure 138 mm[Hg] Luis Armando L Adam Work Phone: [facility] Work Phone: 01-24-2022 13:53-0400 Body height 165.1 cm Luis Armando L Adam Work Phone: [facility] Work Phone: 01-24-2022 13:53-0400 Body mass index (BMI) [Ratio] 25.13 kg/m2 Luis Armando L Adam Work Phone: [facility] Work Phone: 01-24-2022 13:53-0400 Body surface area Derived from formula 1.76 m2 Luis Armando L Adam Work Phone: [facility] Work Phone: 01-24-2022 13:53-0400 Body weight 68.49 kg Luis Armando L Adam Work Phone: [facility] Work Phone: 01-24-2022 13:53-0400 Diastolic blood pressure 90 mm[Hg] Luis Armando L Adam Work Phone: [facility] Work Phone: 01-24-2022 13:53-0400 Heart rate 98 /min Luis Armando L Adam Work Phone: [facility] Work Phone: 01-24-2022 13:53-0400 Systolic blood pressure 148 mm[Hg] Luis Armando L Adam Work Phone: [facility] Work Phone: 12-08-2021 14:32-0400 Body height 165.1 cm Luis Armando L Adam Work Phone: [facility] Work Phone: 12-08-2021 14:32-0400 Body mass index (BMI) [Ratio] 25.19 kg/m2 Luis Armando L Adam Work Phone: [facility] Work Phone: 12-08-2021 14:32-0400 Body surface area Derived from formula 1.76 m2 Luis Armando L Adam Work Phone: [facility] Work Phone: 12-08-2021 14:32-0400 Body weight 68.67 kg Luis Armando L Adam Work Phone: [facility] Work Phone: 12-08-2021 14:32-0400 Diastolic blood pressure 90 mm[Hg] Luis Armando L Adam Work Phone: [facility] Work Phone: 12-08-2021 14:32-0400 Heart rate 73 /min Luis Armando L Adam Work Phone: [facility] Work Phone: 12-08-2021 14:32-0400 Systolic blood pressure 140 mm[Hg] Luis Armando L Adam Work Phone: [facility] Work Phone: 07-29-2021 14:39-0400 Body height 165.1 cm Luis Armando L Adam Work Phone: [facility] Work Phone: 07-29-2021 14:39-0400 Body mass index (BMI) [Ratio] 24.83 kg/m2 Luis Armando L Adam Work Phone: [facility] Work Phone: 07-29-2021 14:39-0400 Body surface area Derived from formula 1.75 m2 Luis Armando L Adam Work Phone: [facility] Work Phone: 07-29-2021 14:39-0400 Body weight 67.67 kg Luis Armando L Adam Work Phone: [facility] Work Phone: 07-29-2021 14:39-0400 Diastolic blood pressure 90 mm[Hg] Luis Armando L Adam Work Phone: [facility] Work Phone: 07-29-2021 14:39-0400 Heart rate 98 /min Luis Armando L Adam Work Phone: [facility] Work Phone: 07-29-2021 14:39-0400 Systolic blood pressure 162 mm[Hg] Luis Armando L Adam Work Phone: [facility] Work Phone: 04-29-2021 15:19-0500 Body height 165.1 cm Luis Armando L Adam Work Phone: [facility] Work Phone: 04-29-2021 15:19-0500 Body mass index (BMI) [Ratio] 24.76 kg/m2 Luis Armando L Adam Work Phone: [facility] Work Phone: 04-29-2021 15:19-0500 Body surface area Derived from formula 1.74 m2 Luis Armando L Adam Work Phone: [facility] Work Phone: 04-29-2021 15:19-0500 Body temperature 96 [degF] Luis Armando L Adam Work Phone: [facility] Work Phone: 04-29-2021 15:19-0500 Body weight 67.49 kg Luis Armando L Adam Work Phone: [facility] Work Phone: 04-29-2021 15:19-0500 Diastolic blood pressure 80 mm[Hg] Luis Armando L Adam Work Phone: [facility] Work Phone: 04-29-2021 15:19-0500 Heart rate 98 /min Luis Armando L Adam Work Phone: [facility] Work Phone: 04-29-2021 15:19-0500 Systolic blood pressure 128 mm[Hg] Luis Armando L Adam Work Phone: [facility] Work Phone: 01-21-2021 15:22-0400 Body height 165.1 cm Luis Armando L Adam Work Phone: [facility] Work Phone: 01-21-2021 15:22-0400 Body mass index (BMI) [Ratio] 24.46 kg/m2 Luis Armando L Adam Work Phone: [facility] Work Phone: 01-21-2021 15:22-0400 Body surface area Derived from formula 1.74 m2 Luis Armando L Adam Work Phone: [facility] Work Phone: 01-21-2021 15:22-0400 Body temperature 97.1 [degF] Luis Armando L Adam Work Phone: [facility] Work Phone: 01-21-2021 15:22-0400 Body weight 66.68 kg Luis Armando L Adam Work Phone: [facility] Work Phone: 01-21-2021 15:22-0400 Diastolic blood pressure 93 mm[Hg] Luis Armando L Adam Work Phone: [facility] Work Phone: 01-21-2021 15:22-0400 Heart rate 84 /min Luis Armando L Adam Work Phone: [facility] Work Phone: 01-21-2021 15:22-0400 Systolic blood pressure 138 mm[Hg] Luis Armando L Adam Work Phone: [facility] Work Phone: 11-12-2020 15:38-0400 Body height 165.1 cm Luis Armando L Adam Work Phone: [facility] Work Phone: 11-12-2020 15:38-0400 Body mass index (BMI) [Ratio] 25.24 kg/m2 Luis Armando L Adam Work Phone: [facility] Work Phone: 11-12-2020 15:38-0400 Body surface area Derived from formula 1.76 m2 Luis Armando L Adam Work Phone: [facility] Work Phone: 11-12-2020 15:38-0400 Body temperature 96.5 [degF] Luis Armando Smither Work Phone: [facility] Work Phone: 11-12-2020 15:38-0400 Body weight 68.81 kg Luisa Rmando L Adam Work Phone: [facility] Work Phone: 11-12-2020 15:38-0400 Diastolic blood pressure 90 mm[Hg] Luis Armando Smith Adam Work Phone: [facility] Work Phone: 11-12-2020 15:38-0400 Heart rate 91 /min Luis Armando Smith Adam Work Phone: [facility] Work Phone: 11-12-2020 15:38-0400 Systolic blood pressure 142 mm[Hg] Luis Armando L Adam Work Phone: [facility] Work Phone: 05-14-2020 16:40-0500 BMI (Body Mass Index) 24.89 kg/m2 Luis Armando Adam [facility] Work Phone: 05-14-2020 16:40-0500 Body weight 67.84 kg Luis Armando Smither [facility] Work Phone: 05-14-2020 16:40-0500 BP Diastolic 100 mm[Hg] Luis Armando Smither [facility] Work Phone: 05-14-2020 16:40-0500 BP Systolic 166 mm[Hg] Luis Armando Medina [facility] Work Phone: 05-14-2020 16:40-0500 BSA (Body Surface Area) 1.75 m2 Luis Armando Medina [facility] Work Phone: 05-14-2020 16:40-0500 Height 165.1 cm Luis Armando Medina [facility] Work Phone: 05-14-2020 16:40-0500 Pulse (Heart Rate) 105 /min Luis Armando Medina [facility] Work Phone: 07-21-2015 15:47-0400 BMI (Body Mass Index) 22.59 kg/m2 [facility] Work Phone: 07-21-2015 15:47-0400 Height 167.64 cm [facility] Work Phone: 07-21-2015 15:47-0400 Weight 63.5 kg [facility] Work Phone: Encounters Encounter Date Encounter Type Care Provider Facility Start: 03-22-2023 End: 03-22-2023 ambulatory [facility] Start: 12-15-2022 End: 12-15-2022 ambulatory [facility] Start: 12-15-2022 End: 12-15-2022 Office outpatient visit 25 minutes Luis Armando Medina MD Work Phone: [facility] Procedures Date Procedure Procedure Detail Performing Clinician Start: 12-15-2022 OPIATE/OPIOID/BENZO EXTENDED PRESCRIPTION COMPLIANCE LUIS ARMANDO MEDINA Start: 12-15-2022 OPIATE/OPIOID/BENZO PRESCRIPTION COMPLIANCE LUIS ARMANDO MEDINA Start: 12-15-2022 FOLLOW UP IN FAMILY MEDICINE LUIS ARMANDO MEDINA Start: 09-12-2019 Lipid 1996 panel - S rut or Plasma Luis Armando Medina MD Work Phone: Start: 08-09-2018 [object Object] Plan of Treatment Date Care Activity Detail Author Start: 09-11-2024 Lipid panel Lipid Panel [facility] Start: 06-09-2023 Medicare Annual Wellness Visit Medicare Annual Wellness Visit (AWV) [facility] Start: 12-22-2022 Influenza vaccination Influenza Vacc ine (#1) [facility] Start: 12-15-2022 End: 12-16-2023 CBC panel - Blood by Automated count CBC Lab Routine Hypertension, unspecified type Expected: 12/15/2022 (Approximate), Expires: 12/16/2023 [facility] Work Phone: Immunizations Immunization Date Immunization Notes Care Provider Fa cili 02-20-2022 Fluad Quadrivalent 0 .5 ML Intramuscular Prefilled Syringe Luis Armando Medina Work Phone: [facility] Work Phone: 02-20-2022 influenza virus vaccine, unspecified formulation Luis Armando Medina MD Work Phone: [facility] Work Phone: 02-06-2022 Pfizer COVID-19 Vac Bivalent 30 MCG/0.3ML Intramuscular Suspension Luis Armando Medina Work Phone: [facility] Work Phone: Payers Date Payer Category Payer Medicare [employer] MEDICARE A ETNA HANDLEY MEDICARE [id number] 2021-Present [address] [place] [address] [id number] 2021 Private Health Insurance 101 [id number] 1945 Unknown [id number] 1945 Unknown [id number] 1945 Unknown [id number] 1945 Unknown [id number] 1945 Unknown [id number] 1945 Unknown [id number] 1945 Unknown [id number] 1945 Unknown [id number] Unknown [employer] Social History Date Type Detail Facility Assertion Tobacco smoking consumption unknown (finding) [facility] Work Phone: Start: 09-07-2022 Occasional alcohol use Occasional al cohol use [facility] Work Phone: Functional Status Date Assessment Result Facility NEGATED: Highlighted row Functional performance Functional status health issues are not documented Disease [facility] Work Phone: Mental Status Date Assessment Result Facility NEGATED: Highlighted row Cognitive function [Interpretation] Cognitive status health issues are not documented Disease [facility] Work Phone: History of Present illness Narrative 12-15-2022 Luis Armando Medina MD - 12/15/2022 3:20 PM EDT Note Date & Type Note Facility 12-15-2022 History of Present illness Narrative Subjective Patient ID: Bernarda Ervin is a 77 y.o. male who presents for 90 days.. OARRS: Luis Armando Medina MD on 12/15/22 Yes, I feel it is clincially indicated to continue the medication and have discussed with the patient risks/benefits/alternatives. Is the patient prescribed a combination of a benzodiazepine and opioid? No Last Urine Drug Screen / ordered today: yes last percocet 3 ago Recent Results Recent Results (from the past 07299 hour(s)) OPIATE/OPIOID/BENZO PRESCRIPTION COMPLIANCE Collection Time: 12/08/21 3:12 PM Result Value Ref Range DRUG SCREEN COMMENT URINE SEE BELOW Creatine, Urine 56.9 mg/dL Amphetamine Screen, Urine PRESUMPTIVE NEGATIVE NEGATIVE Barbiturate Screen, Urine PRESUMPTIVE NEGATIVE NEGATIVE Cannabinoid Screen, Urine PRESUMPTIVE NEGATIVE NEGATIVE Cocaine Screen, Urine PRESUMPTIVE NEGATIVE NEGATIVE PCP Screen, Urine PRESUMPTIVE NEGATIVE NEGATIVE 7-Aminoclonazepam <25 Cutoff <25 ng/mL Alpha-Hydroxyalprazolam <25 Cutoff <25 ng/mL Alpha-Hydroxymidazolam <25 Cutoff <25 ng/mL Alprazolam <25 Cutoff <25 ng/mL Chlordiazepoxide <25 Cutoff <25 ng/mL Clonazepam <25 Cutoff <25 ng/mL Diazepam <25 Cutoff <25 ng/mL Lorazepam <25 Cutoff <25 ng/mL Midazolam <25 Cutoff <25 ng/mL Nordiazepam <25 Cutoff <25 ng/mL Oxazepam <25 Cutoff <25 ng/mL Temazepam <25 Cutoff <25 ng/mL Zolpidem <25 Cutoff <25 ng/mL Zolpidem Metabolite (ZCA) <25 Cutoff <25 ng/mL 6-Acetylmorphine <25 Cutoff <25 ng/mL Codeine <50 Cutoff <50 ng/mL Hydrocodone <25 Cutoff <25 ng/mL Hydromorphone <25 Cutoff <25 ng/mL Morphine Urine <50 Cutoff <50 ng/mL Norhydrocodone <25 Cutoff <25 ng/mL Noroxycodone >1000 (A) Cutoff <25 ng/mL Oxycodone 325 (A) Cutoff <25 ng/mL Oxymorphone 644 (A) Cutoff <25 ng/mL Tramadol <50 Cutoff <50 ng/mL O-Desmethyltramadol <50 Cutoff <50 ng/mL Fentanyl <2.5 Cutoff<2.5 ng/mL Norfentanyl <2.5 Cutoff<2.5 ng/mL METHADONE CONFIRMATION,URINE <25 Cutoff <25 ng/mL EDDP <25 Cutoff <25 ng/mL Results are as expected. Controlled Substance Agreement: Date of the Last Agreement: September 07, 2022 Reviewed Controlled Substance Agreement including but not limited to the benefits, risks, and alternatives to treatment with a Controlled Substance medication(s). Opioids: What is the patient's goal of therapy? 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 Yes I have calculated the patient's Morphine Dose Equivalent (MED): I have considered referral to Pain Management and/or a specialist, and do not feel it is necessary at this time. I feel that it is clinically indicated to continue this current medication regimen after consideration of alternative therapies, and other non-opioid treatment. Opioid Risk Screening: Family History of Substance Abuse Alcohol: 0 (09/07/2022 3:00 PM) Illegal Drugs: 0 (09/07/2022 3:00 PM) Prescription Drugs: 0 (09/07/2022 3:00 PM) Personal History of Substance Abuse Alcohol: 0 (09/07/2022 3:00 PM) Illegal Drugs: 0 (09/07/2022 3:00 PM) Prescription Drugs: 0 (09/07/2022 3:00 PM) Patient Age (16-45) Age (16-45): 0 (09/07/2022 3:00 PM) History of Preadolescent Sexual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 form and reviewed each line item with the patient and the patient has verbalized understanding.Date of the last Controlled Substance Agreement: 12/08/21OPIOIDWhat is the patient s goal of therapy? to pain free to function better.Is this being achieved with current treatment? yes.Attestation statement: I feel that it is clinically indicated to continue this current medication regimen after consideration of alternative therapies, and other non-opioid treatments.Opioid Risk Screening:Opioid Risk Tool-OUDLast opioid risk screening date/ordered today: 05/14/2020Family history of substance abuse: Alcohol = 0, Illegal Drugs = 0, Prescription Drugs = 0Personal history of substance abuse: Alcohol = 0, Illegal Drugs = 0, Prescription Drugs = 0Age: is between 16-45 years old = 0History of preadolescent sexual abuse: Positive History = 0Psychological disease: Positive History of Attention Deficit Disorder/Obsessive Compulsive Disorder/Bipolar/Schizophrenia = 0, Positive History of Depression = 0Patient's total score is 0, within range of Low Risk (0-2).Pain Scale Screening:Pain Assessment and Documentation Tool (PADT)Date of Assessment: 12/08/2021nalgesia:Patient reports his pain level on average during the past week is 3 on a 0 - 10 scale.Patient reports that his pain level at its worst during the past week was 8 on a 0 -10 scale.90 % of pain has been relieved during the past week per patientPatient states that the amount of pain relief he is now obtaining from his current pain reliever(s) is enough to make a real difference in his life.Query to clinician: Is the patient's pain relief clinically significant? YesActivities of Daily Living:Physical functioning: BetterFamily relationships: SameSocial relationships: SameMood: BetterSleep patterns: BetterOverall functioning: BetterAdverse Events:No, BERNARDA JAKE is experiencing following side effects from current pain reliever.a. Nausea: Noneb. Vomiting: Nonec. Constipation: Milde. Mental cloudiness: NonePatients overall severity of side effect: NoneIs your overall impression that this patient is benefiting (e.g., benefits, such as pain relief, outweigh side effects) from opioid therapy? YesSpecific Analgesic Plan: Continue present regimen. 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 [facility] Work Phone: History of Present illness Narrative Note Date & Type Note Facility History of Present illness Narrative The patient is being seen for the subsequent annual wellness visit.Past Medical, Surgical and Family History: reviewed and updated in chart.Medications and Supplements: Review of all medications by a prescribing practitioner or clinical pharmacist (such as prescriptions, OTCs, herbal therapies and supplements) documented in the medical record.Yes, the patient is using opioids.Patient Self Assessment of Health Status: poor.Tobacco use: Non-UserAlcohol use: Non-UserIllicit drug use: Non-UserCurrent diet: does consume caffeine.Exercise Frequency: the patient does not exercise.Depression/Suicide Screening: Patient has a current diagnosis of depression .During the past 2 weeks, the patient felt down, depressed or hopeless.During the past 2 weeks, the patient felt little interest or pleasure in doing things.PHQ-9 Depression Scale:1. Little interest or pleasure in doing things - more than half the days2. Feeling down, depressed or hopeless - more than half the days3. Trouble falling asleep or sleeping too much - not at all4. Feeling tired or having little energy - nearly every day5. Poor appetite or overeating - not at all6. Feeling bad about self or failure or letting others down - several days7. Trouble concentrating on things - nearly every day8. Moving / speaking slowly or fidgety / restless - nearly every day9. Thought would be better off or hurting self - not at allTotal Score: 14Severity of depression is moderate.How difficult have these problems made it for you to do your work, take care of things at home, or get along with people? Very Difficult.Hearing Impairment: Patient has slight hearing impairment, bilaterally.Cognitive Impairment: No cognitive impairment observed.Bathing: performs independently.Dressing: performs independently.Walking: needs assistance.Bladder: continent.Managing Finances: performs independently.Shopping: performs independently.Managing Medications: performs independently.Housework / Basic Home Maintenance: performs independently.Falls Risk Screening:. His fall did not result in injury.Home safety risk factors: none.Advance directives:. Advanced Care Planning discussed and documented advance care plan or surrogate decision maker documented in the medical record. Patient has living will. Patient has healthcare POA.Patient's End of Life Decisions: End of life decisions were reviewed with the patient. I agree to follow the patient's decisions. Concerns with the patient's end of life decisions: Full code.HTN with raynaudswill add losartanno cp no palpitationsrecent Dr Bar longer seeing Dr Askew was 11/7hosp did not show any reason for resp distresswas taking longer and longer to get things donehad swelling in legs and had echo and no chfchronic constipation takes otc senokotdepressionhas been on 6 monthsprostate cancer remissioncurrently no treatmentwooster comm now part of the [facility] Dr Garcia and sees in marchtremor in hands and lipsworse with shavingand holding a glassconcerns about parkinsonswhile sitting has joltsmay consider primidonefxhx mother had shy dragerrough patch of skinnot itcingwears aforestrictive lung disease2 l nc continuousbut the bipap does not fit well over oxygenOARRS Report Last Screening Date: 06/08/22I have personally reviewed the OARRS report for EBRNARDA ERVIN. I have considered the risks of abuse, dependence, addiction and diversion.I have calculated the patient's Morphine Dose Equivalent (MED):I have considered referral to Pain Management and/or a specialist, and do not feel it is necessary at this time.Is the patient prescribed a combination of a benzodiazepine and opioid? No.Last urine drug screening date/ordered today: 12/08/2021ontrolled Substance Agreement:I have printed this form and reviewed each line item with the patient and the patient has verbalized understanding.Date of the last Controlled Substance Agreement: 12/08/21OPIOIDWhat is the patient s goal of therapy? to pain free to function better.Is this being achieved with current treatment? yes.Attestation statement: I feel that it is clinically indicated to continue this current medication regimen after consideration of alternative therapies, and other non-opioid treatments.Opioid Risk Screening:Opioid Risk Tool-OUDLast opioid risk screening date/ordered today: 05/14/2020Family history of substance abuse: Alcohol = 0, Illegal Drugs = 0, Prescription Drugs = 0Personal history of substance abuse: Alcohol = 0, Illegal Drugs = 0, Prescription Drugs = 0Age: is between 16-45 years old = 0History of preadolescent sexual abuse: Positive History = 0Psychological disease: Positive History of Attention Deficit Disorder/Obsessive Compulsive Disorder/Bipolar/Schizophrenia = 0, Positive History of Depression = 0Patient's total score is 0, within range of Low Risk (0-2).Pain Scale Screening:Pain Assessment and Documentation Tool (PADT)Date of Assessment: 06/08/22Analgesia:Patient reports his pain level on average during the past week is 2 on a 0 - 10 scale.Patient reports that his pain level at its worst during the past week was 8 on a 0 -10 scale.100 % of pain has been relieved during the past week per patientPatient states that the amount of pain relief he is now obtaining from his current pain reliever(s) is enough to make a real difference in his life.Query to clinician: Is the patient's pain relief clinically significant? YesActivities of Daily Living:Physical functioning: BetterMood: BetterSleep patterns: BetterOverall functioning: BetterAdverse Events:No, BERNARDA ERVIN is experiencing following side effects from current pain reliever.c. Constipation: ModeratePatients overall severity of side effect: NoneIs your overall impression that this patient is benefiting (e.g., benefits, such as pain relief, outweigh side effects) from opioid therapy? YesSpecific Analgesic Plan: Continue present regimen. 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 [facility] Work Phone: History of Present illness Narrative Note Date & Type Note Facility History of Present illness Narrative The patient is being seen for the subsequent annual wellness visit.Past Medical, Surgical and Family History: reviewed and updated in chart.Medications and Supplements: Review of all medications by a prescribing practitioner or clinical pharmacist (such as prescriptions, OTCs, herbal therapies and supplements) documented in the medical record.Yes, the patient is using opioids.Patient Self Assessment of Health Status: poor.Tobacco use: Non-UserAlcohol use: Non-UserIllicit drug use: Non-UserCurrent diet: does consume caffeine.Exercise Frequency: the patient does not exercise.Depression/Suicide Screening: Patient has a current diagnosis of depression .During the past 2 weeks, the patient felt down, depressed or hopeless.During the past 2 weeks, the patient felt little interest or pleasure in doing things.PHQ-9 Depression Scale:1. Little interest or pleasure in doing things - more than half the days2. Feeling down, depressed or hopeless - more than half the days3. Trouble falling asleep or sleeping too much - not at all4. Feeling tired or having little energy - nearly every day5. Poor appetite or overeating - not at all6. Feeling bad about self or failure or letting others down - several days7. Trouble concentrating on things - nearly every day8. Moving / speaking slowly or fidgety / restless - nearly every day9. Thought would be better off or hurting self - not at allTotal Score: 14/27Severity of depression is moderate.How difficult have these problems made it for you to do your work, take care of things at home, or get along with people? Very Difficult.Hearing Impairment: Patient has slight hearing impairment, bilaterally.Cognitive Impairment: No cognitive impairment observed.Bathing: performs independently.Dressing: performs independently.Walking: needs assistance.Bladder: continent.Managing Finances: performs independently.Shopping: performs independently.Managing Medications: performs independently.Housework / Basic Home Maintenance: performs independently.Falls Risk Screening:. His fall did not result in injury.Home safety risk factors: none.Advance directives:. Advanced Care Planning discussed and documented advance care plan or surrogate decision maker documented in the medical record. Patient has living will. Patient has healthcare POA.Patient's End of Life Decisions: End of life decisions were reviewed with the patient. I agree to follow the patient's decisions. Concerns with the patient's end of life decisions: Full code.HTN with raynaudswill add losartanno cp no palpitationsrecent Dr Karina torres Dr, AM and stats able to bleed in o2 to bipapno longer seeing Dr Askew was 11/7hosp did not show any reason for resp distresswas taking longer and longer to get things donehad swelling in legs and had echo and no chfchronic constipation takes otc senokotdepressionhas been on 6 monthsprostate cancer remissioncurrently no treatmentwooster comm now part of the [facility] Dr Garcia and sees in marchtremor in hands and lipsworse with shavingand holding a glassconcerns about parkinsonswhile sitting has joltsmay consider primidonefxhx mother had shy dragerrough patch of skinnot itcingwears aforestrictive lung disease2 l nc continuousbut the bipap does not fit well over oxygenOARRS Report Last Screening Date: 06/08/22I have personally reviewed the OARRS report for BERNARDA ERVIN. I have considered the risks of abuse, dependence, addiction and diversion.I have calculated the patient's Morphine Dose Equivalent (MED):I have considered referral to Pain Management and/or a specialist, and do not feel it is necessary at this time.Is the patient prescribed a combination of a benzodiazepine and opioid? No.Last urine drug screening date/ordered today: 2Controlled Substance Agreement:I have printed this form and reviewed each line item with the patient and the patient has verbalized understanding.Date of the last Controlled Substance Agreement: 12/08/21OPIOIDWhat is the patient s goal of therapy? to pain free to function better.Is this being achieved with current treatment? yes.Attestation statement: I feel that it is clinically indicated to continue this current medication regimen after consideration of alternative therapies, and other non-opioid treatments.Opioid Risk Screening:Opioid Risk Tool-OUDLast opioid risk screening date/ordered today: 05/14/2020Family history of substance abuse: Alcohol = 0, Illegal Drugs = 0, Prescription Drugs = 0Personal history of substance abuse: Alcohol = 0, Illegal Drugs = 0, Prescription Drugs = 0Age: is between 16-45 years old = 0History of preadolescent sexual abuse: Positive History = 0Psychological disease: Positive History of Attention Deficit Disorder/Obsessive Compulsive Disorder/Bipolar/Schizophrenia = 0, Positive History of Depression = 0Patient's total score is 0, within range of Low Risk (0-2).Pain Scale Screening:Pain Assessment and Documentation Tool (PADT)Date of Assessment: 06/08/22Analgesia:Patient reports his pain level on average during the past week is 2 on a 0 - 10 scale.Patient reports that his pain level at its worst during the past week was 8 on a 0 -10 scale.100 % of pain has been relieved during the past week per patientPatient states that the amount of pain relief he is now obtaining from his current pain reliever(s) is enough to make a real difference in his life.Query to clinician: Is the patient's pain relief clinically significant? YesActivities of Daily Living:Physical functioning: BetterMood: BetterSleep patterns: BetterOverall functioning: BetterAdverse Events:No, BERNARDA ERVIN is experiencing following side effects from current pain reliever.c. Constipation: ModeratePatients overall severity of side effect: NoneIs your overall impression that this patient is benefiting (e.g., benefits, such as pain relief, outweigh side effects) from opioid therapy? YesSpecific Analgesic Plan: Continue present regimen. 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 [facility] Work Phone: Summary Purpose Family History No Family History Records FoundUnknown Family Member Name Dates Details Family history of hypothyroi dism(V18.19, Z83.49) Comments:Other Status:Active Sibling Name Dates Details Family history of thyroid di sease(V18.19, Z83.49) Status:Active Father Name Dates Details Family history of cardiac di sorder(V17.49, Z82.49) Status:Active Brother Name Dates Details Family history of hypothyroi dism(V18.19, Z83.49) Status:Active Unknown Family Member Name Dates Details Family history of hypothyroi dism(V18.19, Z83.49) Comments:Other Status:Active Sibling Name Dates Details Family history of thyroid di sease(V18.19, Z83.49) Status:Active Father Name Dates Details Family history of cardiac di sorder(V17.49, Z82.49) Status:Active Brother Name Dates Details Family history of hypothyroi dism(V18.19, Z83.49) Status:Active Unknown Family Member Name Dates Details Family history of hypothyroi dism(V18.19, Z83.49) Comments:Other Status:Active Sibling Name Dates Details Family history of thyroid di sease(V18.19, Z83.49) Status:Active Father Name Dates Details Family history of cardiac di sorder(V17.49, Z82.49) Status:Active Brother Name Dates Details Family history of hypothyroi dism(V18.19, Z83.49) Status:Active Unknown Family Member Name Dates Details Family history of cardiac di sorder: Father(V17.49, Z82.49) Status:Active Family history of thyroid di sease: Sibling(V18.19, Z83.49) Status:Active Family history of hypothyroi dism: Brother, Other(V18.19, Z83.49) Status:Active Unknown Family Member Name Dates Details Family history of hypothyroi dism: Brother, Other(V18.19, Z83.49) Status:Active Family history of thyroid di sease: Sibling(V18.19, Z83.49) Status:Active Family history of cardiac di sorder: Father(V17.49, Z82.49) Status:Active Unknown Family Member Name Dates Details Family history of cardiac di sorder: Father(V17.49, Z82.49) Status:Active Family history of thyroid di sease: Sibling(V18.19, Z83.49) Status:Active Family history of hypothyroi dism: Brother, Other(V18.19, Z83.49) Status:Active Unknown Family Member Name Dates Details Family history of cardiac di sorder: Father(V17.49, Z82.49) Status:Active Family history of thyroid di sease: Sibling(V18.19, Z83.49) Status:Active Family history of hypothyroi dism: Brother, Other(V18.19, Z83.49) Status:Active Unknown Family Member Name Dates Details Family history of cardiac di sorder: Father(V17.49, Z82.49) Status:Active Family history of thyroid di sease: Sibling(V18.19, Z83.49) Status:Active Family history of hypothyroi dism: Brother, Other(V18.19, Z83.49) Status:Active Unknown Family Member Name Dates Details Family history of cardiac di sorder: Father(V17.49, Z82.49) Status:Active Family history of thyroid di sease: Sibling(V18.19, Z83.49) Status:Active Family history of hypothyroi dism: Brother, Other(V18.19, Z83.49) Status:Active Unknown Family Member Name Dates Details Family history of cardiac di sorder: Father(V17.49, Z82.49) Status:Active Family history of thyroid di sease: Sibling(V18.19, Z83.49) Status:Active Family history of hypothyroi dism: Brother, Other(V18.19, Z83.49) Status:Active Unknown Family Member Name Dates Details Family history of cardiac di sorder: Father(V17.49, Z82.49) Status:Active Family history of thyroid di sease: Sibling(V18.19, Z83.49) Status:Active Family history of hypothyroi dism: Brother, Other(V18.19, Z83.49) Status:Active Unknown Family Member Name Dates Details Family history of hypothyroi dism: Brother, Other(V18.19, Z83.49) Status:Active Family history of thyroid di sease: Sibling(V18.19, Z83.49) Status:Active Family history of cardiac di sorder: Father(V17.49, Z82.49) Status:Active Unknown Family Member Name Dates Details Family history of hypothyroi dism: Brother, Other(V18.19, Z83.49) Status:Active Family history of thyroid di sease: Sibling(V18.19, Z83.49) Status:Active Family history of cardiac di sorder: Father(V17.49, Z82.49) Status:Active Unknown Family Member Name Dates Details Family history of hypothyroi dism: Brother, Other(V18.19, Z83.49) Status:Active Family history of thyroid di sease: Sibling(V18.19, Z83.49) Status:Active Family history of cardiac di sorder: Father(V17.49, Z82.49) Status:Active Unknown Family Member Name Dates Details Family history of hypothyroi dism: Brother, Other(V18.19, Z83.49) Status:Active Family history of thyroid di sease: Sibling(V18.19, Z83.49) Status:Active Family history of cardiac di sorder: Father(V17.49, Z82.49) Status:Active Unknown Family Member Name Dates Details Family history of cardiac di sorder: Father(V17.49, Z82.49) Status:Active Family history of thyroid di sease: Sibling(V18.19, Z83.49) Status:Active Family history of hypothyroi dism: Brother, Other(V18.19, Z83.49) Status:Active Unknown Family Member Name Dates Details Family history of cardiac di sorder: Father(V17.49, Z82.49) Status:Active Family history of thyroid di sease: Sibling(V18.19, Z83.49) Status:Active Family history of hypothyroi dism: Brother, Other(V18.19, Z83.49) Status:Active Unknown Family Member Name Dates Details Family history of cardiac di sorder: Father(V17.49, Z82.49) Status:Active Family history of thyroid di sease: Sibling(V18.19, Z83.49) Status:Active Family history of hypothyroi dism: Brother, Other(V18.19, Z83.49) Status:Active Unknown Family Member Name Dates Details Family history of hypothyroi dism: Brother, Other(V18.19, Z83.49) Status:Active Family history of thyroid di sease: Sibling(V18.19, Z83.49) Status:Active Family history of cardiac di sorder: Father(V17.49, Z82.49) Status:Active Unknown Family Member Name Dates Details Family history of cardiac di sorder: Father(V17.49, Z82.49) Status:Active Family history of thyroid di sease: Sibling(V18.19, Z83.49) Status:Active Family history of hypothyroi dism: Brother, Other(V18.19, Z83.49) Status:Active Unknown Family Member Name Dates Details Family history of hypothyroi dism: Brother, Other(V18.19, Z83.49) Status:Active Family history of thyroid di sease: Sibling(V18.19, Z83.49) Status:Active Family history of cardiac di sorder: Father(V17.49, Z82.49) Status:Active Unknown Family Member Name Dates Details Family history of hypothyroi dism: Brother, Other(V18.19, Z83.49) Status:Active Family history of thyroid di sease: Sibling(V18.19, Z83.49) Status:Active Family history of cardiac di sorder: Father(V17.49, Z82.49) Status:Active Unknown Family Member Name Dates Details Family history of hypothyroi dism: Brother, Other(V18.19, Z83.49) Status:Active Family history of thyroid di sease: Sibling(V18.19, Z83.49) Status:Active Family history of cardiac di sorder: Father(V17.49, Z82.49) Status:Active Unknown Family Member Name Dates Details Family history of hypothyroi dism: Brother, Other(V18.19, Z83.49) Status:Active Family history of thyroid di sease: Sibling(V18.19, Z83.49) Status:Active Family history of cardiac di sorder: Father(V17.49, Z82.49) Status:Active Unknown Family Member Name Dates Details Family history of hypothyroi dism: Brother, Other(V18.19, Z83.49) Status:Active Family history of thyroid di sease: Sibling(V18.19, Z83.49) Status:Active Family history of cardiac di sorder: Father(V17.49, Z82.49) Status:Active Unknown Family Member Name Dates Details Family history of cardiac di sorder: Father(V17.49, Z82.49) Status:Active Family history of thyroid di sease: Sibling(V18.19, Z83.49) Status:Active Family history of hypothyroi dism: Brother, Other(V18.19, Z83.49) Status:Active Unknown Family Member Name Dates Details Family history of hypothyroi dism: Brother, Other(V18.19, Z83.49) Status:Active Family history of thyroid di sease: Sibling(V18.19, Z83.49) Status:Active Family history of cardiac di sorder: Father(V17.49, Z82.49) Status:Active Unknown Family Member Name Dates Details Family history of cardiac di sorder: Father(V17.49, Z82.49) Status:Active Family history of thyroid di sease: Sibling(V18.19, Z83.49) Status:Active Family history of hypothyroi dism: Brother, Other(V18.19, Z83.49) Status:Active Unknown Family Member Name Dates Details Family history of hypothyroi dism: Brother, Other(V18.19, Z83.49) Status:Active Family history of thyroid di sease: Sibling(V18.19, Z83.49) Status:Active Family history of cardiac di sorder: Father(V17.49, Z82.49) Status:Active Unknown Family Member Name Dates Details Family history of cardiac di sorder: Father(V17.49, Z82.49) Status:Active Family history of thyroid di sease: Sibling(V18.19, Z83.49) Status:Active Family history of hypothyroi dism: Brother, Other(V18.19, Z83.49) Status:Active Unknown Family Member Name Dates Details Family history of hypothyroi dism: Brother, Other(V18.19, Z83.49) Status:Active Family history of thyroid di sease: Sibling(V18.19, Z83.49) Status:Active Family history of cardiac di sorder: Father(V17.49, Z82.49) Status:Active Unknown Family Member Name Dates Details Family history of hypothyroi dism: Brother, Other(V18.19, Z83.49) Status:Active Family history of thyroid di sease: Sibling(V18.19, Z83.49) Status:Active Family history of cardiac di sorder: Father(V17.49, Z82.49) Status:Active Unknown Family Member Name Dates Details Family history of cardiac di sorder: Father(V17.49, Z82.49) Status:Active Family history of thyroid di sease: Sibling(V18.19, Z83.49) Status:Active Family history of hypothyroi dism: Brother, Other(V18.19, Z83.49) Status:Active Advance Directives No Advanced Directives Records FoundNo Advanced Directives Records FoundNo Advanced Directives Records FoundNo Advanced Directives Records FoundNo Advanced Directives Records Found Chief Complaint 90 days.10-11 WK OV, MED CHK90 days,.ER f/u SOB.3 mth ov* 90 days. * AWV * 90 days. * AWV Additional Source Comments (unrecognized sect ion and content) No Status Records FoundNo Status Records FoundNo Status Records FoundNo Status Records FoundNo Status Records Found INFORMATION SOURCE (unrecogn ized section and content) DATE CREATED AUTHOR AUTHOR'S ORGANIZ ATION 11/18/2020 [facility] DATE CREATED AUTHOR AUTHOR'S ORGANIZ ATION 06/09/2022 [facility] DATE CREATED AUTHOR AUTHOR'S ORGANIZ ATION 06/09/2022 [facility] DATE CREATED AUTHOR AUTHOR'S ORGANIZ ATION 03/25/2023 [facility] Ambulatory Reason for Visit (unrecogniz ed section and content) Specialty Diagnoses / Procedures Referred By Contac t Referred To Contact Primary Care Procedures Follow Up In Primary Care Luis Armando Medina MD [address] [facility], [place] [id number] Referral ID Status Reason Start Date Expiration Date V isits Requested Visits Authorized [id number] Authorized 09/07/2022 03/06/2023 1 1 Care Teams (unrecognized sec tion and content) FOR RECORDS PERTAINING TO PATIENTS WHO ARE OR HAVE BEEN ENROLLED IN A CHEMICAL DEPENDENCY/SUBSTANCEABUSE PROGRAM, SOME INFORMATION MAY BE OMITTED. This clinical summary was aggregated from multiple sources. Caution should be exercised in using it in the provision of clinical care. This summary normalizes information from multiple sources, and as a consequence, information in this document may materially change the coding, format and clinical context of patient data. In addition, data may be omitted in some cases. CLINICAL DECISIONS SHOULD BE BASED ON THE PRIMARY CLINICAL RECORDS. [facility] [employer] [facility]. provides no warranty or guarantee of the accuracy or completeness of information in this document.
[2023-04-19 08:43] VITALS: BP 130/79; PULSE 116; RESP 16; TEMP 37.1; O2SAT 100; BMI 23.4
[2023-04-19] MEDS: Lactated Ringers 1,000 ML 15 ML IV (08:47)
--- NOTE | 2023-04-19 08:49 | PCM.HP.BLA ---
History and Physical Date of Admission: 04/19/23 Visit Reasons: SCREENING COLONOSCOPY Chief Complaint: increased gas, change in bowel habits Buzzle Buffer Required: No Is patient in pain?: No Allergies metronidazole [From Flagyl] Adverse Reaction (Verified 02/08/23 14:33) Nausea/Vom/DiarrheaDECONGESTANTS Adverse Reaction (Uncoded 02/08/23 14:33) TACHYCARDIA Medications oxycodone-acetaminophen 5 mg-325 mg tablet 1 tab PO TID pain 04/27/17 [History Confirmed 02/08/23] gfvqzyzj-ce-rvwye 300 mcg-K 60 mcg-lycop 600 mcg-lutein 300 mcg tablet 1 ea PO DAILY supplement 02/03/20 [History Confirmed 02/08/23] tamsulosin 0.4 mg capsule 0.4 mg PO BID prostate 02/03/20 [History Confirmed 02/08/23] diphenhydramine HCl 25 mg capsule (Benadryl) 25 mg PO QHS PRN Runny Nose 05/31/22 [History Confirmed 02/08/23] nifedipine 90 mg tablet,extended release 90 mg PO QHS HEART 05/31/22 [History Confirmed 02/08/23] venlafaxine 75 mg capsule,extended release 24 hr 75 mg PO DAILY MOOD 05/31/22 [History Confirmed 02/08/23] losartan 25 mg tablet 50 mg PO QHS BP 02/08/23 [History Confirmed 02/08/23] PFSH Medical History Acute on chronic respiratory failure with hypoxia and hypercapnia Alcohol use Anxiety Arthritis Back pain BiPAP (biphasic positive airway pressure) dependence Bladder disease Cancer Chronic respiratory failure with hypoxia and hypercapnia Claustrophobia Degenerative scoliosis 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 Depression History of CHF (congestive heart failure) History of diverticulitis History of echocardiogram History of edema History of pain when walking History of stress test Hypertension Lumbar radicular pain Non-smoker On home oxygen therapy On mechanically assisted ventilation Post-polio syndrome Post-poliomyelitis syndrome Redness of skin Scoliosis Segmental dysfunction of thoracic region Uses crutches Wears glasses Surgical History H/O adenoidectomy H/O spinal fusion Hip fracture, right History of cardiac catheterization History of open reduction and internal fixation (ORIF) procedure History of uvulectomy Hx of cystoscopy Hx of lithotripsy Right tibial fracture Family History Father Myocardial infarction Heart diseaseMother Shy-Drager syndromeOther CVA (cerebral vascular accident) Social History household members: spouse housing: house Smoking Status: Never smoker substance use type: does not use HPI HPI HPI: 77-year-old gentleman is being referred by Dr. Luis Medina for surgical consultation regarding screening colonoscopy and a written copy of my surgical consult recommendations will return to him. The patient presents and his main concern is excessive flatus. He goes on to tell me that at age 6 he had polio. He has had decreased pulmonary functions since that time. Currently he is on 5 L/min of nasal prong oxygen. This was increased in June 2022 when he claims he had an episode of hospitalization when he had hypercarbia. He was started on CPAP. He has not had a recent check but states that he likely still runs high. He does note that he has had significant decreased pulmonary function. Regarding his bowel habits he claims that throughout the day he will have excessive gas. Sometimes he cannot tell the difference doing that and moving his bowels. Sometimes the bowel movements will be formed and other times not. Going back through charting it was evident that he had a colonoscopy January 2009 which was unremarkable at that time. 2019 he had prostate cancer diagnosed and he was treated with radiation therapy. He thinks that some of his bowel changes may have started at that time. I have records from most recent pulmonary office visit on December 20, 2002 regarding central sleep apnea. The patient is using oxygen to maintain 89 to 92%. He denies any bright red blood per rectum or melena ROS General General: Yes fatigue; No weight change, appetite, colon cancer, breast cancer or weakness HEENT HEENT: No difficulty swallowing, eye injury, eye surgery, swollen glands or hoarseness Endo Endocrine: No thyroid disease, diabetes mellitus, thyroid cancer, Hair loss, heat intolerance or cold intolerance Skin Skin: No rash or changing moles Musc Musculoskeletal: Yes back problems and arthritis; No rheumatoid arthritis, gout or joint pain Cardio Cardiovascular: Yes high blood pressure; No murmur, pacemaker, heart disease, atrial fibrillation, heart attack, heart stent, palpitations, shortness of breat with exertion or chest pain Psych Psychiatric: Yes depression and anxiety; No hearing voices Resp Respiratory: Yes shortness of breath, Yes sleep apnea, No cough, No COPD, No asthma, No emphysema and No wheezing Gastro Gastrointestinal: No abdominal pain, No nausea or vomiting, No diarrhea, Yes constipation, No blood in stool, No acid reflux, No hemorrhoids, No ulcers, No gallbladder problem and No black,tarry stools Walter Hematologic: No blood thinners, No blood disorders, No bleeding, No anemia and No blood clots Neuro Neurologic: No weakness Exam Const General: cooperative HENMT Head: normal to inspection Eyes General: appearance normal, both eyes and all related structures Neck Other: Evidence of accessory muscle respiration Chest Other: Scoliotic chest with diminished breath sounds right base Resp Other: Exaggerated respiratory expansion Cardio Rate: regular rate Rhythm: regular rhythm GI Other: Soft, nontender Skin General: no rashes or lesions noted Neuro General: patient alert, patient awake and patient oriented x3 Extrem General: no calf tenderness Psych Appearance: grossly normal Assessment and Plan Assessment and Plan (1) Screening for intestinal cancer: Status: Acute Plan: The patient is complaining of a change in bowel habits with increased flatulence. I suspect this may be due to the now the high flow nasal prong oxygen and air aphasia. Unfortunately he describes what sounds like episode of hypercarbia requiring hospitalization. This point we discussed the technique benefit risk complications of a colonoscopy. He states that if he has had a remote awake colonoscopy would not pursue that. However I do have significant concerns about IV sedation to pursue a colonoscopy at this setting. I have requested him that we have him again follow-up with pulmonology Dr. Erno Monsivais with the [place] question in mind as to whether this patient could tolerate sedation to proceed with a colonoscopy. He is aware that I consider him high risk. If he is not felt to be a candidate then might consider getting CT enterography with oral contrast. He has had an opportunity to ask and have questions answered. We will await pulmonary review and recommendations. I appreciate the ongoing assistance. Copy: Dr. Luis Medina and Dr. Eron Pinto M.D., F.A.C.S. (2) Flatulence: The patient was evaluated by pulmonology Dr. Eron Monsivais and has been cleared to proceed with colonoscopy with monitored anesthesia care. The patient is aware of the technique, benefit, risk, alternatives. Health is otherwise remained steady. We will proceed as noted. Vidal Pinto M.D., F.A.C.S.
--- NOTE | 2023-04-19 09:30 | COLBX_PTH ---
PATHOLOGY RESULTS PATIENT: BERNARDA JOSEPH LOC: EN U#:[id number] AGE/SX: 77/M ROOM: RE04/19/[address]: Dr. Vidal Pinto MD : 1945 BED: DIS: 04/19/2023 SPEC #: [id number] RECD: 04/19/23 11:00 STATUS: FABI CANALES #: [id number] TADEO: 04/19/23 09:[address]: Vidal Pinto DEPT: SURGICAL PATHOLOGY RECD BY: Antonette Gregg ENTERED: 04/19/23 11:00 SP TYPE: COLON BX OTHR DR: Dr. Luis Medina MD Tissues: SPLENIC FLEXURE Descending colon Sigmoid colon biopsy Procedures: Surgery Specimen Level IV HEADER OPERATION: Colonoscopy with biopsies and polypectomy PRE-OP DIAGNOSIS: Screening for intestinal cancer TISSUE SUBMITTED: A - Splenic flexure polyp pelvic lymph node x2, B - Descending colon polyp biopsy, C - Proximal sigmoid polyp MICROSCOPIC DIAGNOSIS A. Colonic polyp at splenic flexure, biopsy: Tubular adenoma. B. Descending colon polyp, biopsy: Tubular adenoma. C. Proximal sigmoid colon polyp, biopsy: Tubular adenoma. AM:vangie 04/20/2023 MICROSCOPIC DESCRIPTION Slides are reviewed. GROSS DESCRIPTION A - Received in fixative is one container labeled with the patient's name and designated splenic flexure polyp x2 biopsy. The specimen consists of two irregular fragments of light buchanan soft tissue that in aggregate measure 0.4 x 0.3 x 0.1 cm. The specimen is totally submitted in one cassette. B - Received in fixative is one container labeled with the patient's name and designated descending colon polyp biopsy. The specimen consists of one irregular fragment of light buchanan soft tissue that measures 0.3 x 0.3 x 0.1 cm. The specimen is totally submitted in one cassette. C - Received in fixative is one container labeled with the patient's name and designated proximal sigmoid polyp. The specimen consists of a buchanan-pink polyp measuring 0.6 x 0.7 x 0.3 cm. The specimen is totally submitted in one cassette. / AALIYAH:vangie 04/19/2023 TC:5 CPT: 49006 x3
[2023-04-19 09:55] VITALS: BP 121/69; BP 130/79; PULSE 106; RESP 16; TEMP 36.3; O2SAT 97
--- NOTE | 2023-04-19 09:55 | OP.COLON_ITS ---
Patient Name: Andrew Ervin Procedure Date: 04/19/2023 9:24 AM Date of : 1945 Age: 77 Procedure: Colonoscopy Indications: Screening for colorectal malignant neoplasm Providers: Vidal Pinto MD Medicines: See the Anesthesia note for documentation of the administered medications Patient Profile: Last Colonoscopy: 2008. Complications: No immediate complications. Procedure: Pre-Anesthesia Assessment: - Prior to the procedure, a History and Physical was performed, and patient medications and allergies were reviewed. The patient's tolerance of previous anesthesia was also reviewed. The risks and benefits of the procedure and the sedation options and risks were discussed with the patient. All questions were answered, and informed consent was obtained. Prior Anticoagulants: The patient has taken no anticoagulant or antiplatelet agents. ASA Grade Assessment: III - A patient with severe systemic disease. After reviewing the risks and benefits, the patient was deemed in satisfactory condition to undergo the procedure. After I obtained informed consent, the scope was passed under direct vision. Throughout the procedure, the patient's blood pressure, pulse, and oxygen saturations were monitored continuously. The colonoscope was introduced through the anus and advanced to the cecum, identified by appendiceal orifice and ileocecal valve. The colonoscopy was performed without difficulty. The patient tolerated the procedure well. The quality of the bowel preparation was good. The ileocecal valve and the appendiceal orifice were photographed. Scope In: 9:30:02 AM Scope Withdrawal Time 0 hours 13 minutes 25 seconds Scope Out: 9:47:12 AM Total Procedure Duration Time 0 hours 17 minutes 10 seconds Findings: The digital rectal exam findings include decreased sphincter tone, non-thrombosed external hemorrhoids, non-thrombosed internal hemorrhoids and internal hemorrhoids that prolapse with straining, but spontaneously regress to the resting position (Grade II). Two sessile polyps were found in the splenic flexure. The polyps were 2 to 3 mm in size. These polyps were removed with a cold biopsy forceps. Resection and retrieval were complete. A 3 mm polyp was found in the mid descending colon. The polyp was sessile. The polyp was removed with a cold biopsy forceps. Resection and retrieval were complete. An 8 mm polyp was found in the proximal sigmoid colon. The polyp was semi-pedunculated. The polyp was removed with a hot snare. Resection and retrieval were complete. Multiple diverticula were found in the sigmoid colon. Impression: - Decreased sphincter tone, non-thrombosed external hemorrhoids, non-thrombosed internal hemorrhoids and internal hemorrhoids that prolapse with straining, but spontaneously regress to the resting position (Grade II) found on digital rectal exam. - Two 2 to 3 mm polyps at the splenic flexure, removed with a cold biopsy forceps. Resected and retrieved. - One 3 mm polyp in the mid descending colon, removed with a cold biopsy forceps. Resected and retrieved. - One 8 mm polyp in the proximal sigmoid colon, removed with a hot snare. Resected and retrieved. - Diverticulosis in the sigmoid colon. Recommendation: - Discharge patient to home. - Resume previous diet. - Continue present medications. - Repeat colonoscopy in 5 years for surveillance based on pathology results. - Telephone my office for pathology results in 1 week. I suspect the patient's increased flatus is secondary to his supplemental oxygen therapy. He has change of bowel habits likely also secondary to COPD and dietary changes. Increased fiber and fiber supplementation will be recommended. Procedure Code(s): --- Professional --- 14644, Colonoscopy, flexible; with removal of tumor(s), polyp(s), or other lesion(s) by snare technique 86131, 59, Colonoscopy, flexible; with biopsy, single or multiple Diagnosis Code(s): --- Professional --- Z12.11, Encounter for screening for malignant neoplasm of colon K62.89, Other specified diseases of anus and rectum D12.3, Benign neoplasm of transverse colon (hepatic flexure or splenic flexure) D12.4, Benign neoplasm of descending colon D12.5, Benign neoplasm of sigmoid colon K64.1, Second degree hemorrhoids K64.4, Residual hemorrhoidal skin tags K57.30, Diverticulosis of large intestine without perforation or abscess without bleeding CPT copyright 2021 [employer]. All rights reserved. The codes documented in this report are preliminary and upon mental health aide review may be revised to meet current compliance requirements. Vidal Pinto MD 04/19/2023 9:55:28 AM This report has been signed electronically. Number of Addenda: 0 Note Initiated On: 04/19/2023 9:24 AM
--- NOTE | 2023-04-19 09:55 | OP.CCLET_ITS ---
04/19/2023 Luis Medina Md Re : Colonoscopy procedure for Andrew Ervin Dear Adam This procedure was performed on March. My impressions and recommendations are as follows: Impressions : - Decreased sphincter tone, non-thrombosed external hemorrhoids, non-thrombosed internal hemorrhoids and internal hemorrhoids that prolapse with straining, but spontaneously regress to the resting position (Grade II) found on digital rectal exam. - Two 2 to 3 mm polyps at the splenic flexure, removed with a cold biopsy forceps. Resected and retrieved. - One 3 mm polyp in the mid descending colon, removed with a cold biopsy forceps. Resected and retrieved. - One 8 mm polyp in the proximal sigmoid colon, removed with a hot snare. Resected and retrieved. - Diverticulosis in the sigmoid colon. Recommendations : - Discharge patient to home. - Resume previous diet. - Continue present medications. - Repeat colonoscopy in 5 years for surveillance based on pathology results. - Telephone my office for pathology results in 1 week. I suspect the patient's increased flatus is secondary to his supplemental oxygen therapy. He has change of bowel habits likely also secondary to COPD and dietary changes. Increased fiber and fiber supplementation will be recommended. My findings are described in the full procedure note, which is enclosed. If I can be of further assistance, please feel free to contact me at Doctor phone number(s): Work: . Sincerely, Vidal Pinto MD 04/19/2023 9:55:28 AM This report has been signed electronically.
[2023-04-19 10:00] VITALS: BP 121/65; BP 130/79; PULSE 106; RESP 16; O2SAT 99
[2023-04-19 10:05] VITALS: BP 111/74; BP 130/79; PULSE 103; RESP 16; O2SAT 100
[2023-04-19 10:10] VITALS: BP 113/73; BP 130/79; PULSE 100; RESP 16; TEMP 37.1; O2SAT 100
[2023-04-19 10:23] VITALS: BP 130/79
== END 2023-04-19 10:57 | disposition home or self-care (01) ==
LOC: EN 08:19 → AC 08:23
PROVIDERS: PCP Family Medicine; Referring Provider Family Medicine; Visit Provider Surgery
PROC: 0DJD8ZZ Inspection of Lower Intestinal Tract, Via Natural or Artificial Opening Endoscopic (ICD-10-PCS; CPT 45378; principal; 2023-04-19 09:25)
DX: Z12.11 Encounter for screening for malignant neoplasm of colon (principal); J96.21 Acute and chronic respiratory failure with hypoxia; J96.22 Acute and chronic respiratory failure with hypercapnia; D12.3 Benign neoplasm of transverse colon; D12.4 Benign neoplasm of descending colon; D12.5 Benign neoplasm of sigmoid colon; K64.1 Second degree hemorrhoids; K64.4 Residual hemorrhoidal skin tags; K57.30 Diverticulosis of large intestine without perforation or abscess without bleeding; K62.89 Other specified diseases of anus and rectum; I10 Essential (primary) hypertension; G47.31 Primary central sleep apnea; G14 Postpolio syndrome; F32.A Depression, unspecified; R19.4 Change in bowel habit; Z99.81 Dependence on supplemental oxygen; Z79.899 Other long term (current) drug therapy; Z85.46 Personal history of malignant neoplasm of prostate
CPT/HCPCS: 45380; 45385; 88305; J7120; J2405

== ENCOUNTER → 2023-05-04 | Outpatient (CLI) | payer MEDICARE, SELFPAY ==
--- OUTSIDE RECORDS SUMMARY | 2023-05-04 11:42 | XMS RPT_ITS | CCD ---
Author Name Unknown Address [email or web address] [place] [address] Organization [facility] Care Team Providers Care Combo Welder Name Role Phone Jo Bartlett Unavailable Jo Bartlett Unavailable Jaylyn Mercedes Unavailable [phone] Adam Luis Armando Unavailable Unavailable Adam, Luis [...] Care Provider Luis Armando Medina MD Unavailable DAAMJERSON RANKINLAS L Attending Unavailable ADAM, LUIS ARMANDO L Referring Unavailable ADAM, LUIS ARMANDO L Primary Care Unavailable JERSON MEDINALAS L Attending Unavailable ADAM, LUIS ARMANDO L Primary Care Unavailable ADAM, LUIS ARMANDO L Attending Unavailable LUIS ARMANDO MEDINA Primary Care Unavailable Allergies Allergy Classification Reported Allergen(s) Allergy Type Date of Onset Reaction(s) Facility Nitroimidazoles (antibiotic) (5 sources) metroNIDAZOLE; Translations: [Flagyl] Drug Allergy Nausea [facility] Work Phone: NSAIDs (5 sources) meloxicam; Translations: [meloxicam] Drug Allergy Chest Pain [facility] Work Phone: (7 sources) metroNIDAZOLE Drug Allergy 6 Nausea [facility] Work Phone: (20 sources) meloxicam; Translations: [meloxicam] Drug Allergy 3 Chest Pain, Other [facility] (20 sources) metroNIDAZOLE; Translations: [Flagyl] Drug Allergy 3 Nausea Only [facility] Work Phone: (1 source) metroNIDAZOLE; Translations: [METRONIDAZOLE] Drug Allergy 3 [facility] 3 Repository Medications Current Medications Medication [...] Drug Class(es) Dates Sig (Normalized) Sig (Original) [id number] 200 actuat albuterol 0.09 mg/actuat metered dose [...] Raynaud's disease; Translations: [Raynaud's syndrome] Chronic 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 and poliomyelitis (20 sources) Post poliomyelitis [...] lumbar region] Onset: 6 03-02-2016 Episodic 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 and poliomyelitis (4 sources) H/O: poliomyelitis; [...] cm Luis Armando Medina MD Work Phone: [facility] 12-15-2022 15:31-0400 Body mass index (BMI) [Ratio] 24.37 kg/m2 Luis Armando Medina MD Work Phone: [facility] 12-15-2022 15:31-0400 Body weight 64.41 kg Luis Armando Medina MD Work Phone: [facility] 12-15-2022 15:31-0400 Diastolic blood pressure 90 mm[Hg] Luis Armando Medina MD Work Phone: [facility] 12-15-2022 15:31-0400 Heart rate 103 /min Luis Armando Medina MD Work Phone: [facility] 12-15-2022 15:31-0400 SaO2% (BldA) [Mass fraction] 93 % Luis Armando Medina MD Work Phone: [facility] 12-15-2022 15:31-0400 Systolic blood pressure 162 mm[Hg] Luis Armando Medina MD Work Phone: [facility] 06-08-2022 15:10-0500 Body height 165.1 cm Luis Armando L Adam Work Phone: [facility] Work Phone: 06-08-2022 15:10-0500 Body mass index (BMI) [Ratio] 24.91 kg/m2 Luis Armando Smith Adam Work Phone: [facility] Work Phone: 06-08-2022 15:10-0500 Body surface area Derived from formula 1.75 m2 Luis Armando Medina Work Phone: [facility] Work Phone: 06-08-2022 15:10-0500 Body weight 67.9 kg Luis Armando L Adam Work Phone: [facility] Work Phone: 06-08-2022 15:10-0500 Diastolic blood pressure 80 mm[Hg] Luis Armando Medina Work Phone: [facility] Work Phone: 06-08-2022 15:10-0500 Heart rate 102 /min Luis Armando L Adam Work Phone: [facility] Work Phone: 06-08-2022 15:10-0500 Systolic blood pressure 128 mm[Hg] Luis Armando L Adam Work Phone: [facility] Work Phone: 03-09-2022 15:14-0500 Body height 165.1 cm Luis Armando L Adam Work Phone: [facility] Work Phone: 03-09-2022 15:14-0500 Body mass index (BMI) [Ratio] 24.73 kg/m2 Luis Armando L Adam Work Phone: [facility] Work Phone: 03-09-2022 15:14-0500 Body surface area Derived from formula 1.74 m2 Luis Armando L Adam Work Phone: [facility] Work Phone: 03-09-2022 15:14-0500 Body weight 67.4 kg Luis Armando L Adam Work Phone: [facility] Work Phone: 03-09-2022 15:14-0500 Diastolic blood pressure 100 mm[Hg] Luis Armando L Adam Work Phone: [facility] Work Phone: 03-09-2022 15:14-0500 Heart rate 78 /min Luis Armando L Adam Work Phone: [facility] Work Phone: 03-09-2022 15:14-0500 Systolic blood pressure 138 mm[Hg] Luis Armando L Adam Work Phone: [facility] Work Phone: 01-24-2022 13:53-0400 Body height 165.1 cm Luis Armando L Adam Work Phone: [facility] Work Phone: 01-24-2022 13:53-0400 Body mass index (BMI) [Ratio] 25.13 kg/m2 Luis Armando L Adam Work Phone: [facility] Work Phone: 01-24-2022 13:53-0400 Body surface area Derived from formula 1.76 m2 Luis Armando L Adam Work Phone: [facility] Work Phone: 01-24-2022 13:53-0400 Body weight 68.49 kg Luis Armando L Adam Work Phone: [facility] Work Phone: 01-24-2022 13:53-0400 Diastolic blood pressure 90 mm[Hg] Luis Armando L Adam Work Phone: [facility] Work Phone: 01-24-2022 13:53-0400 Heart rate 98 /min Luis Armando L Adam Work Phone: [facility] Work Phone: 01-24-2022 13:53-0400 Systolic blood pressure 148 mm[Hg] Luis Armando L Adam Work Phone: [facility] Work Phone: 12-08-2021 14:32-0400 Body height 165.1 cm Luis Armando L Adam Work Phone: [facility] Work Phone: 12-08-2021 14:32-0400 Body mass index (BMI) [Ratio] 25.19 kg/m2 Luis Armando L Adam Work Phone: [facility] Work Phone: 12-08-2021 14:32-0400 Body surface area Derived from formula 1.76 m2 Luis Armando L Adam Work Phone: [facility] Work Phone: 12-08-2021 14:32-0400 Body weight 68.67 kg Luis Armando L Adam Work Phone: [facility] Work Phone: 12-08-2021 14:32-0400 Diastolic blood pressure 90 mm[Hg] Luis Armando L Adam Work Phone: [facility] Work Phone: 12-08-2021 14:32-0400 Heart rate 73 /min Luis Armando L Adam Work Phone: [facility] Work Phone: 12-08-2021 14:32-0400 Systolic blood pressure 140 mm[Hg] Luis Armando L Adam Work Phone: [facility] Work Phone: 07-29-2021 14:39-0400 Body height 165.1 cm Luis Armando L Adam Work Phone: [facility] Work Phone: 07-29-2021 14:39-0400 Body mass index (BMI) [Ratio] 24.83 kg/m2 Luis Armando L Adam Work Phone: [facility] Work Phone: 07-29-2021 14:39-0400 Body surface area Derived from formula 1.75 m2 Luis Armando L Adam Work Phone: [facility] Work Phone: 07-29-2021 14:39-0400 Body weight 67.67 kg Luis Armando L Adam Work Phone: [facility] Work Phone: 07-29-2021 14:39-0400 Diastolic blood pressure 90 mm[Hg] Luis Armando L Adam Work Phone: [facility] Work Phone: 07-29-2021 14:39-0400 Heart rate 98 /min Luis Armando L Adam Work Phone: [facility] Work Phone: 07-29-2021 14:39-0400 Systolic blood pressure 162 mm[Hg] Luis Armando L Adam Work Phone: [facility] Work Phone: 04-29-2021 15:19-0500 Body height 165.1 cm Luis Armando L Adam Work Phone: [facility] Work Phone: 04-29-2021 15:19-0500 Body mass index (BMI) [Ratio] 24.76 kg/m2 Luis Armando L Adam Work Phone: [facility] Work Phone: 04-29-2021 15:19-0500 Body surface area Derived from formula 1.74 m2 Luis Armando L Adam Work Phone: [facility] Work Phone: 04-29-2021 15:19-0500 Body temperature 96 [degF] Luis Armando L Adam Work Phone: [facility] Work Phone: 04-29-2021 15:19-0500 Body weight 67.49 kg Luis Armando L Adam Work Phone: [facility] Work Phone: 04-29-2021 15:19-0500 Diastolic blood pressure 80 mm[Hg] Luis Armando L Adam Work Phone: [facility] Work Phone: 04-29-2021 15:19-0500 Heart rate 98 /min Luis Armando L Adam Work Phone: [facility] Work Phone: 04-29-2021 15:19-0500 Systolic blood pressure 128 mm[Hg] Luis Armando L Adam Work Phone: [facility] Work Phone: 01-21-2021 15:22-0400 Body height 165.1 cm Luis Armando L Adam Work Phone: [facility] Work Phone: 01-21-2021 15:22-0400 Body mass index (BMI) [Ratio] 24.46 kg/m2 Luis Armando L Adam Work Phone: [facility] Work Phone: 01-21-2021 15:22-0400 Body surface area Derived from formula 1.74 m2 Luis Armando L Adam Work Phone: [facility] Work Phone: 01-21-2021 15:22-0400 Body temperature 97.1 [degF] Luis Armando L Adam Work Phone: [facility] Work Phone: 01-21-2021 15:22-0400 Body weight 66.68 kg Luis Armando L Adam Work Phone: [facility] Work Phone: 01-21-2021 15:22-0400 Diastolic blood pressure 93 mm[Hg] Luis Armando L Adam Work Phone: [facility] Work Phone: 01-21-2021 15:22-0400 Heart rate 84 /min Luis Armando L Adam Work Phone: [facility] Work Phone: 01-21-2021 15:22-0400 Systolic blood pressure 138 mm[Hg] Luis Armando L Adam Work Phone: [facility] Work Phone: 11-12-2020 15:38-0400 Body height 165.1 cm Luis Armando L Adam Work Phone: [facility] Work Phone: 11-12-2020 15:38-0400 Body mass index (BMI) [Ratio] 25.24 kg/m2 Luis Armando L Adam Work Phone: [facility] Work Phone: 11-12-2020 15:38-0400 Body surface area Derived from formula 1.76 m2 Luis Armando L Adam Work Phone: [facility] Work Phone: 11-12-2020 15:38-0400 Body temperature 96.5 [degF] Luis Armando Smither Work Phone: [facility] Work Phone: 11-12-2020 15:38-0400 Body weight 68.81 kg Luis Armando L Adam Work Phone: [facility] Work Phone: 11-12-2020 15:38-0400 Diastolic blood pressure 90 mm[Hg] Luis Armando Smith Adam Work Phone: [facility] Work Phone: 11-12-2020 15:38-0400 Heart rate 91 /min Luis Armando Smith Adam Work Phone: [facility] Work Phone: 11-12-2020 15:38-0400 Systolic blood pressure 142 mm[Hg] Luis Armando L Adam Work Phone: [facility] Work Phone: 05-14-2020 16:40-0500 BMI (Body Mass Index) 24.89 kg/m2 Luis Armando Adam [facility] Work Phone: 05-14-2020 16:40-0500 Body weight 67.84 kg Luis Armando Smither [facility] Work Phone: 05-14-2020 16:40-0500 BP Diastolic 100 mm[Hg] Luis Armando Smither [facility] Work Phone: 05-14-2020 16:40-0500 BP Systolic 166 mm[Hg] Luis Armando Medina [facility] Work Phone: 05-14-2020 16:40-0500 BSA (Body Surface Area) 1.75 m2 Luis Armando Medina [facility] Work Phone: 05-14-2020 16:40-0500 Height 165.1 cm Luis Armando Medina [facility] Work Phone: 05-14-2020 16:40-0500 Pulse (Heart Rate) 105 /min Luis Armando Medina [facility] Work Phone: 07-21-2015 15:47-0400 BMI (Body Mass Index) 22.59 kg/m2 [facility] Work Phone: 07-21-2015 15:47-0400 Height 167.64 cm [facility] Work Phone: 07-21-2015 15:47-0400 Weight 63.5 kg [facility] Work Phone: Encounters Encounter Date Encounter Type Care Provider Facility Start: 03-22-2023 End: 03-22-2023 ambulatory [facility] Ambulatory Start: 12-15-2022 End: 12-15-2022 ambulatory [facility] Ambulatory Start: 12-15-2022 End: 12-15-2022 Office outpatient visit 25 minutes Luis Armando Medina MD Work Phone: [facility] Procedures Date Procedure Procedure Detail Performing [...] Author Start: 09-11-2024 Lipid panel Lipid Panel [facility] Start: 06-09-2023 Medicare Annual Wellness Visit Medicare Annual Wellness Visit (AWV) [facility] Start: 12-22-2022 Influenza vaccination Influenza Vacc ine (#1) [facility] Start: 12-15-2022 End: 12-16-2023 CBC panel - Blood by Automated count CBC Lab Routine Hypertension, unspecified type Expected: 12/15/2022 (Approximate), Expires: 12/16/2023 [facility] Work Phone: Immunizations Immunization Date Immunization Notes Care Provider Fa cili 02-20-2022 Fluad Quadrivalent 0 .5 ML Intramuscular Prefilled Syringe Luis Armando Medina Work Phone: [facility] Work Phone: 02-20-2022 influenza virus vaccine, unspecified formulation Luis Armando Medina MD Work Phone: [facility] Work Phone: 02-06-2022 Pfizer COVID-19 Vac Bivalent 30 MCG/0.3ML Intramuscular Suspension Luis Armando Medina Work Phone: [facility] Work Phone: Payers Date Payer Category Payer Medicare [employer] MEDICARE A ETNA HANDLEY MEDICARE [id number] 2021-Present [address] [place] [address] [id number] 2021 Private Health Insurance 101 [id number] 1945 Unknown [id number] 1945 Unknown [id number] 1945 Unknown [id number] 1945 Unknown [id number] 56 1945 Unknown [id number] 56 1945 Unknown [id number] 1945 Unknown [id number] 1947 Unknown [id number] Unknown [employer] Social History Date Type Detail Facility Assertion Tobacco smoking consumption unknown (finding) [facility] Work Phone: Start: 09-07-2022 Occasional alcohol use Occasional al cohol use [facility] Work Phone: Functional Status Date Assessment Result Facility NEGATED: Highlighted row Functional performance Functional status health issues are not documented Disease [facility] Work Phone: Mental Status Date Assessment Result Facility NEGATED: Highlighted row Cognitive function [Interpretation] Cognitive status health issues are not documented Disease [facility] Work Phone: History of Present illness [...] Recent Results Recent Results (from the past 85878 hour(s)) OPIATE/OPIOID/BENZO PRESCRIPTION COMPLIANCE Collection Time: 12/08/21 [...] In Primary Care documented in this encounter [facility] Work Phone: History of Present illness [...] productiveon cpap no pnd no orthopneano edema [facility] Work Phone: History of Present illness [...] oskar malagonDr Carlos HERNANDEZ ortho met in [id number] welldoubled vitamin d and calicumwalks permanently with [...] 2020may need to go to 90[place] after [id number] mintues after eatingMedicare questionsPatient takes medications regularlyAlcohol: [...] Medication: NSAID, Antihistamines, Gabapentin, Tricyclic Antidepressant (TCA). -[facility] Work Phone: History of Present illness [...] or strengthno oskar HERNANDEZ ortho met in [id number] welldoubled vitamin d and calicumwalks permanently with [...] no better after fodmaps and gluten will [id number] mintues after eatingMedicare questionsPatient takes medications regularlyAlcohol: [...] Assessment and Documentation Tool (PADT)Date of Assessment: [id number]:Patient reports his pain level on average during [...] Medication: NSAID, Antihistamines, Gabapentin, Tricyclic Antidepressant (TCA). [facility] Work Phone: History of Present illness [...] Medication: NSAID, Antihistamines, Gabapentin, Tricyclic Antidepressant (TCA). [facility] Work Phone: Evaluation note Note Date & Type Note Facility documented in this encounter [facility] Work Phone: History of Present illness [...] no better after fodmaps and gluten will [id number] mintues after eatingno n/v no abd painbm [...] Medication: NSAID, Antihistamines, Gabapentin, Tricyclic Antidepressant (TCA). [facility] Work Phone: History of Present illness [...] Medication: NSAID, Antihistamines, Gabapentin, Tricyclic Antidepressant (TCA). [facility] Work Phone: History of Present illness [...] no treatmentwooster comm now part of the [facility] Dr Garcia and sees in marchtremor in [...] Medication: NSAID, Antihistamines, Gabapentin, Tricyclic Antidepressant (TCA). [facility] Work Phone: History of Present illness [...] no treatmentwooster comm now part of the [facility] Dr Garcia and sees in marchtremor in [...] Medication: NSAID, Antihistamines, Gabapentin, Tricyclic Antidepressant (TCA). [facility] Work Phone: Summary Purpose Family History [...] DATE CREATED AUTHOR AUTHOR'S ORGANIZ ATION 11/18/2020 [facility] DATE CREATED AUTHOR AUTHOR'S ORGANIZ ATION 06/09/2022 [facility] DATE CREATED AUTHOR AUTHOR'S ORGANIZ ATION 06/09/2022 [facility] DATE CREATED AUTHOR AUTHOR'S ORGANIZ ATION 03/25/2023 [facility] Ambulatory Reason for Visit (unrecogniz ed section and content) Specialty Diagnoses / Procedures Referred By Contac t Referred To Contact Primary Care Procedures Follow Up In Primary Care Luis Armando Medina MD [address] [facility] [place], [place] [address] [id number] Referral ID Status Reason Start Date Expiration Date V isits Requested Visits Authorized [id number] Authorized 09/07/2022 03/06/2023 1 1 Care Teams [...] BE BASED ON THE PRIMARY CLINICAL RECORDS. [facility]. provides no warranty or guarantee of the accuracy or completeness of information in this document.
[2023-05-04 13:23] LABS: PSA,Total- Diagnostic 0.26 ng/mL (0.0-4.0)
== END | disposition home or self-care (01) ==
PROVIDERS: PCP Family Medicine; Referring Provider Nurse Practitioner; Visit Provider Nurse Practitioner
DX: C61 Malignant neoplasm of prostate (principal)
CPT/HCPCS: 36415; 84153

== ENCOUNTER 2023-07-17 10:29 | Outpatient (CLI) | payer MEDICARE, SELFPAY ==
[2023-07-17 10:54] LABS: Allen Test Positive; Base Excess 15 mmol/L (-2 to +2); Bicarbonate 38.2 mmol/L (22-26); Blood Gas Specimen Type ART; Mode Not entered; O2 Delivery Device Cannula; PO2 71 mmHG (75-100); SITE L Radial; SO2 95 % (95-99); Total Carbon Dioxide 40 mmol/L; pCO2 51.4 mmHg (35-45); pH 7.48 (7.35-7.45)
== END 2023-07-17 23:59 | disposition home or self-care (01) ==
LOC: PSN 10:30
PROVIDERS: PCP Family Medicine; Referring Provider Nurse Practitioner Acute Care; Visit Provider Nurse Practitioner Acute Care
DX: Z00.00 Encounter for general adult medical examination without abnormal findings (principal)
CPT/HCPCS: 36600; 82803

== ENCOUNTER → 2023-11-13 | Outpatient (CLI) | payer MEDICARE, SELFPAY ==
[2023-11-13 11:33] LABS: PSA,Total- Diagnostic 0.26 ng/mL (0.0-4.0)
== END | disposition home or self-care (01) ==
LOC: LAB 10:25
PROVIDERS: PCP Family Medicine; Referring Provider Urology; Visit Provider Urology
DX: C61 Malignant neoplasm of prostate (principal)
CPT/HCPCS: 36415; 84153

== ENCOUNTER 2024-03-24 13:55 | Outpatient (RCR) | payer MEDICARE, SELFPAY ==
--- NOTE | 2024-03-24 15:20 | HP.SP.EV_ITS ---
Visit History Visit Info Date of Eval: 03/24/24 Visit: 1 Bruise Trimmer: [facility] History Attending Doctor: Referring Doctor: Reason for Referral: SWALLOW TEST. RX HERE Medical Diagnosis: Dysphagia Date of Onset of Diagnosis: December 2023 Previous speech therapy: No Other Relevant Medical History/Diagnoses/Surgery: Polio as a child. Patient has had respiratory issues since then with reduced capacity. 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 Surgeries in 3 and 4th grade for right leg and two spinal fusions/surgeries in 4th grade. Patient is currently on oxygen and has been the last two years. Tonsillectomy and adenoidectomy along with uvula removed due to breathing issues. In the last two months patient reported that he has had 2-3 choking episodes where he had difficulty with coughing while eating/drinking. One time he had a greater time in catching his breath. MBS is pending. Medications related to this diagnosis: Percocet (pain) , Nifedipine ( blood pressure), Venlafaxine ( depression), Losartan ( blood pressure), Flomax. Smoking Status: Never smoker Diagnosis Diagnosis: Dysphagia Pain Is pain an issue with your current prescribed condition?: No Personal Preferred language: Cambodian Patient Allergies Allergies Allergies: Allergies metronidazole (From Flagyl) Adverse Reaction (Verified 03/03/24 13:51) Nausea/Vom/Diarrhea VOMITING DECONGESTANTS Adverse Reaction (Uncoded 03/03/24 13:51) TACHYCARDIA Subjective Dysphagia Symptoms Reported Symptoms/Problems with: Choking Current Diet Solids Current Diet: Regular Current Diet Liquids Current Liquids: Thin Objective Dysphagia Administered by Administered by: Self Thin Liquids Administred via: Cup Oral Transit: WNL Bolus clearance: significant clearance/minimal residue Gagging: No Cough: none observed/unable to assess Patient Report: Patient had no complaints today. Pureed Oral Preparation: WNL Oral Transit: WNL Bolus clearance: fully cleared Gagging: No Cough: none observed/unable to assess Patient Report: Patient had no complaints today. Regular Oral Preparation: WNL Oral Transit: WNL Bolus clearance: significant clearance/minimal residue Gagging: No Cough: none observed/unable to assess Patient Report: Patient had no complaints today. Objective Oral Motor Oral Status Dentition: WNL Labial Impairment: WNL Closure: WNL Pucker: WNL Retraction: WNL Alternating Pucker/Retraction: WNL Involuntary Movement noted: No Lingual Impairment: WNL Protrusion: WNL Retraction: WNL Lateralization: WNL Involuntary Movement: No Jaw Impairment: WNL Opening: WNL Closing: WNL Involuntary Movement: No Respiratory Status Respiratory Status: Nasal Cannula Comments: Last two years. Swallowing Performance Scale Swallowing Performance Scale Swallowing Performance Scale Result: 2 Within Functional Limit Reference: Neuro-QoL instrument Radiation Oncology Patient Plan Plan Plan: No deficits observed today, however, question whether pt is having intermittent aspiration/penetration due to weakness that is unable to be obs erved at bedside. Patient has reported coughing episodes while eating/drinking. MBSS is pending and patient requested to call himself to schedule. Goals will be added after MBS as warranted. Goal #1-5 Goal #1: Goals are pending after MBS. Education Patient has Indicated that the Following Identified Educational Needs: None The Patient has indicated that they have no educational or learning abilities that may effect their care.: Yes Patient Instruction Patient Education: Diagnosis and Treatment Plan Person Taught: Patient Teaching Method: Discussion Response to teaching: Verbalize Understanding
== END 2024-03-24 19:00 | disposition home or self-care (01) ==
LOC: SP 13:55
PROVIDERS: PCP Family Medicine; Referring Provider Family Medicine; Visit Provider Family Medicine
DX: R13.10 Dysphagia, unspecified (principal)
CPT/HCPCS: 92610

== ENCOUNTER → 2024-05-20 | Outpatient (CLI) | payer MEDICARE, SELFPAY ==
[2024-05-20 18:50] LABS: PSA,Total- Diagnostic 0.22 ng/mL (0.0-4.0)
== END | disposition home or self-care (01) ==
LOC: LAB 15:47
PROVIDERS: PCP Family Medicine; Referring Provider Nurse Practitioner; Visit Provider Nurse Practitioner
DX: C61 Malignant neoplasm of prostate (principal)
CPT/HCPCS: 36415; 84153

== ENCOUNTER 2024-07-10 09:20 | Emergency (ER) | payer MEDICARE, SELFPAY ==
[2024-07-10 09:21] VITALS: BP 117/65; PULSE 108; RESP 16; TEMP 36.7; O2SAT 97
[2024-07-10 09:32] VITALS: BMI 23.6
--- NOTE | 2024-07-10 09:50 | EKG12_ITS ---
Test Reason : Blood Pressure : */* mmHG Vent. Rate : 108 BPM Atrial Rate : 108 BPM P-R Int : 166 ms QRS Dur : 60 ms QT Int : 314 ms P-R-T Axes : 62 -1 58 degrees QTcB Int : 420 ms Sinus tachycardia with Premature atrial complexes Possible Left atrial enlargement Borderline ECG When compared with ECG of 31-May-2022 13:13, Premature atrial complexes are now Present QRS axis Shifted right Criteria for Inferior infarct are no longer Present Confirmed by DENA HERNANDEZ, ALEXIS ([id number]), web editor DELMIS CORREA ([id number]) on 07/14/2024 7:33:02 AM Referred By: MISHA Confirmed By: ALEXIS FERNANDES MD
--- NOTE | 2024-07-10 09:51 | RAD_ITS ---
PROCEDURE: CHEST PA AND LATERAL 07/10/2024 REASON FOR EXAM: SOB Dizziness and weakness. TECHNIQUE: AP and lateral views of the chest were obtained. COMPARISON: Comparison is made with prior study dated May 31, 2022. FINDINGS: EKG electrodes are seen. Stable loss of volume in the right hemithorax with shift of the heart and mediastinal structures towards the right hemithorax. Stable increased markings at the left lung base suggestive of atelectasis. Marked degree of dextroscoliosis with deformity of the chest. RAD/Chest PA and Lateral IMPRESSION: Stable examination. Marked degree of dextroconvex scoliosis with volume loss i n the right hemithorax with shift of the heart and mediastinal structures into the right hemithorax. Stable mild increased markings at the lung bases. Reading Location: [place] [address]
--- NOTE | 2024-07-10 09:51 | EX.ED.DYSGE1 ---
HPI History of Present Illness Chief Complaint: Abn Labs Narrative Narrative: Patient is a 79-year-old male with a past medical history of acute on chronic respiratory failure chronically wears 5 L nasal cannula, CHF, polio, anxiety, hypertension, scoliosis who presents to the emergency department from the outpatient setting with concern for elevated carbon dioxide level. Patient states that for the past several weeks he has felt lightheaded and had not been feeling well. He states that he followed up with his pulmonology team and they kumar a blood gas and notes that they called him after a short period time advised him to go to the emergency department as his CO2 level was high. Patient states that he was admitted in the past. Patient states that he feels overall weak but this has been going on for several weeks as well. In the triage noted states that the patient was complaining of dizziness he is not complaining of dizziness after discussion with him he states that he is lightheaded and things are not spinning and he is not spinning. 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 Wears glasses Cancer Depression Claustrophobia Anxiety Alcohol use Redness of skin Uses crutches Arthritis Bladder disease Back pain History of edema History of diverticulitis Post-polio syndrome Non-smoker BiPAP (biphasic positive airway pressure) dependence History of CHF (congestive heart failure) On home oxygen therapy History of pain when walking History of stress test History of echocardiogram Chronic respiratory failure with hypoxia and hypercapnia On mechanically assisted ventilation Post-poliomyelitis syndrome Acute on chronic respiratory failure with hypoxia and hypercapnia Hypertension Lumbar radicular pain Degenerative scoliosis Scoliosis Segmental dysfunction of thoracic region Home Medications ?Medication ?Instructions ?Recorded ?Last Taken ?Type tamsulosin 0.4 mg capsule 0.4 mg PO BID prostate 02/03/20 04/18/23 History diphenhydramine HCl 25 mg capsule 25 mg PO QHS PRN Runny Nose 05/31/22 04/18/23 History (Benadryl) nifedipine 90 mg tablet,extended 90 mg PO QHS HEART 05/31/22 04/18/23 History release venlafaxine 75 mg capsule,extended 75 mg PO DAILY MOOD 05/31/22 04/18/23 History release 24 hr losartan 25 mg tablet 50 mg PO QHS BP 02/08/23 04/18/23 History cyanocobalamin (vitamin B-12) 500 500 mcg PO QDAY 07/10/24 Unknown History mcg tablet Allergy/AdvReac Type Severity Reaction Status Date / Time metronidazole (From Flagyl) AdvReac Nausea/Vom/ Verified 07/10/24 09:21 Diarrhea DECONGESTANTS AdvReac TACHYCARDIA Uncoded 07/10/24 07:42 Family History Father Myocardial infarction Heart disease Mother Shy-Drager syndrome Other CVA (cerebral vascular accident) Surgical History History of selective injection of anesthetic agent around lumbar nerve root Hx of lithotripsy History of cardiac catheterization Hx of cystoscopy H/O adenoidectomy History of uvulectomy Hip fracture, right History of open reduction and internal fixation (ORIF) procedure Right tibial fracture H/O spinal fusion Social History household members: spouse housing: house Smoking Status: Never smoker substance use type: does not use ROS ROS ED ROS Narrative Constitutional: Complains of lightheadedness as noted above denies headache, dizziness, fevers or chills Eyes: Denies change in vision double vision blurry vision Cardiovascular: Denies chest pain palpitations Respiratory: Denies cough or wheezing shortness of breath Abdomen: Denies abdominal pain nausea vomit diarrhea : Denies urinary symptoms Neurological: Complains of generalized weakness as noted above denies numbness or tingling Skin: Denies rashes or lesions EXAM Physical Exam Narrative Exam Narrative: General: Patient is lying bed rest comfortably did not appear to be in acute distress Head: Atraumatic, normocephalic Eyes: PERRL bilaterally, EOMI bilateral, no conjunctival injection noted Neck: Soft, supple, trachea midline Cardiovascular: Regular rate and rhythm no murmurs gallops rubs noted Respiratory: Clear to auscultation bilaterally Abdomen: Soft, distended, nontender to palpation Extremities: +3/5 strength noted in bilateral lower extremities, +4/5 strength noted in the bilateral upper extremities, no pedal edema on exam. NIH of 0 GCS 15 Neurological: Patient following commands knew that he was at [facility] year is 2024 Skin: Warm, dry, intact no rashes or lesions noted Const Vital Signs: 07/10/24 09:21 07/10/24 09:33 07/10/24 09:50 Temperature 98.1 F Temperature Source Temporal Pulse Rate 108 H Respiratory Rate 16 Respiratory Effort Short of Breath Respiratory Pattern Normal Blood Pressure 117/65 Blood Pressure Mean 82 Pulse Ox 97 Oxygen Delivery Method Nasal Cannula Room Air Oxygen Flow Rate (L/min) 07/10/24 11:21 07/10/24 13:00 Temperature Temperature Source Pulse Rate 104 H 103 H Respiratory Rate 16 18 Respiratory Effort Respiratory Pattern Blood Pressure 103/57 L 123/55 H Blood Pressure Mean 72 77 Pulse Ox 98 97 Oxygen Delivery Method Nasal Cannula Nasal Cannula Oxygen Flow Rate (L/min) 5 5 MDM MDM MDM Narrative Medical decision making narrative: Patient is a 79-year-old male who presented to the emergency department with concern for hypercapnia after a arterial blood gas was obtained in the outpatient setting. On the differential diagnose includes but O2 acute on chronic hypoxic hypercapnic respiratory failure, UTI, pneumonia, ACS, CHF exacerbation. Once workup is obtained reviewed he will be reevaluated. Patient's arterial blood gas was reviewed that was obtained earlier today that showed a normal pH 7.38 with a pCO2 of 68. Patient's echocardiogram from 06/01/2022 was reviewed as well which showed ejection fraction of 70% with no evidence of diastolic dysfunction. Patient's echocardiogram from 01/03/2017 was reviewed that showed a ejection fraction of 65 to 75% with stage I diastolic dysfunction which was likely his diagnosis of CHF at that point time, but based on last echo as noted above here his EF normalized and no diastolic dysfunction was noted. Patient is CBC was largely unremarkable no evidence leukocytosis white blood count 5.6, hemoglobin stable 13.4, plate count was noted be 255. Patient's sodium normal 141, potassium normal 4.2, creatinine normal at 0.48. Patient's AST and ALT were 24 and 27 respectively. Patient troponin was noted be 25 with a delta troponin obtained at 20. Patient proBNP normal at 38. Patient's EKG showed sinus tachycardia with premature atrial complexes at a rate of 108 beats per minutes. Patient's TSH normal at 0.68 with a free T4 and T3 of 1.10 and 3 respectively. Patient urinalysis showed no evidence of infection. Patient chest x-ray reviewed by myself and by radiology which showed stable exam marked degree of dextroconvex scoliosis with volume loss in the right hemithorax with shift of the heart and mediastinal structures into the right hemithorax stable mild increased markings of the lung bases. I reached out to the nurse practitioner at Dr. Monsivais's office that sent the patient in and she states that they will see him early next week. We had discussion that with the patient's pH normal and his pCO2 of 68 and this been going on for several weeks the patient is compensated and does not require admission for hypercapnia. Patient does have a sleep study on Sunday as well. Patient got up and ambulated to the bathroom few times while in the emergency department without any difficulty. Discussed results with the patient and family members at bedside they like to go home at this point time all question concerns answered he was discharged home in stable condition. Lab Data Labs: Laboratory Results - last 24 hr 07/10/24 07/10/24 07/10/24 10:10 12:22 12:45 WBC 5.6 RBC 4.44 L Hgb 13.4 Hct 41.9 MCV 94.4 H MCH 30.2 MCHC 32.0 RDW Std Deviation 44.1 H RDW Coeff of Larry 12.8 Plt Count 255 MPV 9.7 Immature Gran % (Auto) 0.400 Neut % (Auto) 73.0 H Lymph % (Auto) 11.6 L [place] % (Auto) 11.1 H Eos % (Auto) 3.2 Baso % (Auto) 0.7 Absolute Neuts (auto) 4.1 Absolute Lymphs (auto) 0.65 L Nucleated RBC % 0 Sodium 141 Potassium 4.2 Chloride 99 Carbon Dioxide 34.3 H Anion Gap 9 BUN 23 H Creatinine 0.48 L Estim Creat Clear Calc 67.27 Est GFR (MDRD) Non-Af 106 BUN/Creatinine Ratio 47.7 H Glucose 116 H Calcium 9.7 Total Bilirubin 0.31 Direct Bilirubin 0.13 AST 24 ALT 27 Alkaline Phosphatase 67 Troponin T High Sens 25 H Troponin T Hi Sens 2 Hr 20 NT pro BNP II 38 Total Protein 7.0 Albumin 4.4 Globulin 2.6 TSH 0.688 Free T4 1.10 Free T3 pg/dL 3.0 Urine Color Yellow Urine Clarity Clear Urine pH 6.5 Ur Specific Almond 1.015 Urine Protein 30 H Urine Glucose (UA) Normal Urine Ketones Negative Urine Occult Blood 10 H Urine Nitrite Negative Urine Bilirubin Negative Urine Urobilinogen Normal Ur Leukocyte Esterase 25 H Urine RBC 0 SEEN Urine WBC 0-5 SEEN Ur Squamous Epith Cells 0 SEEN Urine Bacteria 0 SEEN Urine Mucus 0 SEEN Radiography Diagnostic Testing: Clinical Impression(s) from Imaging Studies Chest X-Ray 07/10/24 09:51 IMPRESSION: Stable examination. Marked degree of dextroconvex scoliosis with volume loss in the right hemithorax with shift of the heart and mediastinal structures into the right hemithorax. Stable mild increased markings at the lung bases. Reading Location: [id number] Discharge Plan Triage Chief Complaint: Abn Labs ED Provider: Gareth Dent Dx/Rx/DC Orders Clinical Impression: Generalized weakness, Light-headed Prescriptions: No Action cyanocobalamin (vitamin B-12) 500 mcg tablet 500 mcg PO QDAY tamsulosin 0.4 MG capsule 0.4 mg PO BID diphenhydramine HCl [Benadryl] 25 mg Capsule 25 mg PO QHS PRN (Reason: Runny Nose) venlafaxine 75 mg capsule,extended release 24hr 75 mg PO DAILY nifedipine 90 mg tablet extended release 90 mg PO QHS losartan 25 mg tablet 50 mg PO QHS Primary Care Provider: Luis Medina Referrals: Luis Medina MD [Primary Care Provider] - Activity Restrictions/Additional Instructions: Follow-up with Dr. Monsivais and team at your next scheduled appointment. Return with worsening symptoms or other concerns. Chest x-ray today did not show any evidence of pneumonia. Your CO2 was elevated however it is chronically elevated based on your underlying lung pathology your pH was normal. Print Language: Kinyarwanda Disposition Disposition: Home, Self Care
[2024-07-10 10:28] LABS: Absolute Lymphocyte Count 0.65 X10^3/uL (0.83-4.51); Absolute Neutrophil Count 4.1 X10^3/uL (2.0-7.7); Basophil# 0.04 X10^3/uL; Basophil% 0.7 % (0-1); Eosinophil# 0.18 X10^3/uL; Eosinophils% 3.2 % (0-5); Hematocrit 41.9 % (40-54); Hemoglobin 13.4 g/dL (13.0-16.5); Lymphocyte # 0.65 X10^3/ul (0.83-4.51); Lymphocyte % 11.6 % (19-41); Mean Corpuscular Hgb 30.2 pg (27.0-32.0); Mean Corpuscular Volume 94.4 fL (80-94); Mean Platelet Vol. 9.7 fl (6.2-12.0); Monocyte# 0.62 X10^3/uL; Monocyte% 11.1 % (0-10); NRBC Flagged by Analyzer 0 % (0-5); Neutrophil # 4.08 X10^3/uL (2.7-7.7); Platelet Count 255 K/mm3 (150-450); RBC Distribution Width CV 12.8 % (11.6-14.6); RBC Distribution Width SD 44.1 fl (35.1-43.9); Red Blood Count 4.44 M/mm3 (4.6-6.2); White Blood Count 5.6 K/mm3 (4.4-11.0)
[2024-07-10 11:00] LABS: AST(SGOT) 24 U/L (<=37); Alanine Aminotransfer ALT/SGPT 27 U/L (<=46); Albumin, Serum 4.4 g/dL (3.4-4.8); Alkaline Phosphatase 67 U/L (40-129); Anion Gap 9 (5-15); BUN 23 mg/dL (4-19); BUN/Creat Ratio 47.7 RATIO (10-20); Bilirubin, Direct 0.13 mg/dL (0.00-0.30); Calcium,Total 9.7 mg/dL (7.6-11.0); Carbon Dioxide 34.3 mmol/L (21.0-32.0); Chloride 99 mmol/L (98-108); Creatinine, Serum 0.48 mg/dL (0.70-1.20); EST Glomerular Filtration Rate 106 (>60); Estimated Creatinine Clearance 67.27 ml/min (50-250); Globulin 2.6 g/dL (2.2-4.2); Glucose 116 mg/dL (70-99); Potassium 4.2 mmol/L (3.3-5.1); Sodium Level 141 mmol/L (133-145); Total Bilirubin 0.31 mg/dL (0.00-1.30)
[2024-07-10 11:21] VITALS: BP 103/57; PULSE 104; RESP 16; O2SAT 98
[2024-07-10 11:37] LABS: Pro- Brain NATRIURETIC PEPTIDE 38 pg/mL (<=1800); Thyroid Stim Hormone (TSH) 0.688 uIU/mL (0.300-4.200); Troponin T High Sensitivity 25 ng/L (<=22)
[2024-07-10 12:57] LABS: Bacteria 0 SEEN /hpf (None Seen); Color, Urine Yellow (Yellow); Glucose, Dipstick Normal (Normal); Ketone-Dipstick Negative (Negative); Leukocyte Esterase-Dipstick 25 /ul (Negative); Mucous, Urine 0 SEEN /hpf (<or=2+); Nitrite-Dipstick Negative (Negative); Occult Blood-Urine 10 /ul (Negative); Protein-Dipstick 30 mg/dl (Negative); Specific Gravity, Urine 1.015 (1.002-1.030); Squamous Epithelial Cells - UA 0 SEEN /hpf (0-5); Urine Bilirubin Dipstick Negative (Negative); Urine Clarity Clear (Clear); Urine Urobilinogen Normal (Normal); Urine pH 6.5 (5.0 - 8.0)
[2024-07-10 13:00] VITALS: BP 123/55; PULSE 103; RESP 18; O2SAT 97
[2024-07-10 13:03] LABS: Red Blood Cells-Urine 0 SEEN /hpf (0-5); White Blood Cells 0-5 SEEN /hpf (0-5)
[2024-07-10 13:25] LABS: Troponin T High Sens 2 HR 20 ng/L (<=22)
[2024-07-10 14:25] VITALS: BP 120/76; PULSE 107; RESP 25; TEMP 36.2; O2SAT 97
== END 2024-07-10 14:26 | disposition home or self-care (01) ==
PROVIDERS: Emergency Provider Emergency Medicine; PCP Family Medicine; Visit Provider Emergency Medicine
DX: R53.1 Weakness (principal); I50.9 Heart failure, unspecified; I11.0 Hypertensive heart disease with heart failure; R42 Dizziness and giddiness
CPT/HCPCS: 71046; 80048; 80076; 81001; 83880; 84439; 84443; 84481; 84484; 85025; 87086; 93005; 99284; A4216

== ENCOUNTER → 2024-07-10 | Outpatient (CLI) | payer MEDICARE, SELFPAY ==
[2024-07-10 09:00] LABS: Allen Test Positive; Base Excess 15 mmol/L (-2 to +2); Bicarbonate 40.4 mmol/L (22-26); Blood Gas Specimen Type ART; Mode Not entered; O2 Delivery Device Cannula; PO2 53 mmHG (75-100); SITE L Radial; SO2 85 % (95-99); Total Carbon Dioxide 43 mmol/L; pH 7.38 (7.35-7.45)
== END | disposition home or self-care (01) ==
LOC: PSN 08:35
PROVIDERS: PCP Family Medicine; Referring Provider Nurse Practitioner Acute Care; Visit Provider Nurse Practitioner Acute Care
DX: J96.11 Chronic respiratory failure with hypoxia (principal)
CPT/HCPCS: 36600; 82803

== ENCOUNTER → 2024-07-15 | Outpatient (CLI) | payer MEDICARE, SELFPAY | END | disposition home or self-care (01) | LOC: SL 12:01 | PROVIDERS: PCP Family Medicine; Referring Provider Nurse Practitioner Acute Care; Visit Provider Nurse Practitioner Acute Care | DX: Z46.89 Encounter for fitting and adjustment of other specified devices (principal); J96.11 Chronic respiratory failure with hypoxia; J96.12 Chronic respiratory failure with hypercapnia | CPT/HCPCS: 98960; G0463 ==

== ENCOUNTER 2024-07-20 23:29 | Emergency (ER) | payer MEDICARE, SELFPAY ==
[2024-07-20 23:30] VITALS: BP 123/106; PULSE 111; RESP 20; TEMP 36.9; O2SAT 93
[2024-07-20 23:31] VITALS: BMI 23.7
[2024-07-21] VITALS (11 sets, daily range): BP systolic 75–131; BP diastolic 40–75; PULSE 90–111; RESP 12–28; TEMP 36.2–36.8; O2SAT 96–99
--- NOTE | 2024-07-21 | EKG12_ITS ---
Test Reason : DYSP Blood Pressure : */* mmHG Vent. Rate : 114 BPM Atrial Rate : 114 BPM P-R Int : 146 ms QRS Dur : 72 ms QT Int : 306 ms P-R-T Axes : 14 -4 61 degrees QTcB Int : 421 ms Sinus tachycardia with Premature atrial complexes Possible Left atrial enlargement Borderline ECG Confirmed by DENA HERNANDEZ, ALEXIS ([id number]), managing editor DELMIS CORREA ([id number]) on 07/22/2024 8:29:06 AM Referred By: Confirmed By: ALEXIS FERNANDES MD
--- NOTE | 2024-07-21 00:01 | RAD_ITS ---
PROCEDURE: CHEST 1 VIEW (PORTABLE) 07/21/2024 REASON FOR EXAM: DYSPNEA TECHNIQUE: Frontal view of the chest. COMPARISON: 07/10/[address] of the chest 05/31/2022 FINDINGS: Marked rightward curvature, scoliosis with resulting deformity of the right hemithorax and shift of mediastinal structures to the right again noted. Mild streaky retrocardiac markings noted at the left base not significantly changed and may represent atelectasis. The lungs otherwise appear clear. Atherosclerotic changes again noted at the aortic arch. RAD/Chest 1 View (Portable) IMPRESSION: No evidence of acute disease. Reading Location: [id number]
[2024-07-21 00:17] LABS: Absolute Lymphocyte Count 0.83 X10^3/uL (0.83-4.51); Absolute Neutrophil Count 6.6 X10^3/uL (2.0-7.7); Basophil# 0.05 X10^3/uL; Basophil% 0.6 % (0-1); Eosinophil# 0.09 X10^3/uL; Eosinophils% 1.1 % (0-5); Hematocrit 39.4 % (40-54); Hemoglobin 12.8 g/dL (13.0-16.5); Lymphocyte # 0.83 X10^3/ul (0.83-4.51); Lymphocyte % 9.8 % (19-41); Mean Corp Hgb Conc 32.5 g/dL (32-36); Mean Corpuscular Hgb 30.5 pg (27.0-32.0); Mean Corpuscular Volume 93.8 fL (80-94); Mean Platelet Vol. 9.1 fl (6.2-12.0); Monocyte# 0.92 X10^3/uL; Monocyte% 10.8 % (0-10); NRBC Flagged by Analyzer 0 % (0-5); Neutrophil # 6.56 X10^3/uL (2.7-7.7); Neutrophil % 77.2 % (47-70); Platelet Count 208 K/mm3 (150-450); RBC Distribution Width CV 12.8 % (11.6-14.6); RBC Distribution Width SD 43.8 fl (35.1-43.9); White Blood Count 8.5 K/mm3 (4.4-11.0)
[2024-07-21 00:22] LABS: Blood Gas Specimen Type VEN; O2 Delivery Device Cannula; SITE Not entered; VBG BASE EXCESS 15 mmol/L (-1.0-3.5); VBG Bicarbonate 40 mmol/L (22-26); VBG PO2 114 mmHg (25-40); VBG SO2 98 % (50-70); VBG TCO2 42 mmol/L (23-33); VBG pH 7.36 (7.32-7.42)
[2024-07-21 00:39] LABS: Anion Gap 12 (5-15); BUN 22 mg/dL (4-19); BUN/Creat Ratio 43.4 RATIO (10-20); Calcium,Total 9.3 mg/dL (7.6-11.0); Carbon Dioxide 30.7 mmol/L (21.0-32.0); Chloride 97 mmol/L (98-108); EST Glomerular Filtration Rate 105 (>60); Estimated Creatinine Clearance 67.27 ml/min (50-250); Glucose 103 mg/dL (70-99); Magnesium 1.9 mg/dL (1.5-2.2); Potassium 4.1 mmol/L (3.3-5.1); Sodium Level 140 mmol/L (133-145)
[2024-07-21 00:41] LABS: Pro- Brain NATRIURETIC PEPTIDE < 36 pg/mL (<=1800)
[2024-07-21 01:49] LABS: Blood Gas Specimen Type VEN; O2 Delivery Device BiPAP; SITE Not entered; VBG BASE EXCESS 13 mmol/L (-1.0-3.5); VBG Bicarbonate 37 mmol/L (22-26); VBG PO2 37 mmHg (25-40); VBG SO2 72 % (50-70); VBG TCO2 39 mmol/L (23-33); VBG pCO2 53.2 mmHg (41-51); VBG pH 7.45 (7.32-7.42)
--- NOTE | 2024-07-21 02:00 | EDS_ITS ---
HPI History of Present Illness Chief Complaint: Shortness of Breath Informant: patient and spouse/S.O. Narrative Narrative: Patient is a 79-year-old male with past medical history of polio and severe scoliosis leading to restrictive lung disease and need for chronic supplemental oxygen. He states he wears 5 L by nasal cannula throughout the day. He states he wears BiPAP at night. He states that in the past his CO2 climbed to a max of 135. Since that time he states that when he begins to feel short of breath he is concerned that his CO2 is elevating. He states has been wearing his BiPAP as directed but he also reports that he believes he needs a better fitting mask. 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 Wears glasses Cancer Depression Claustrophobia Anxiety Alcohol use Redness of skin Uses crutches Arthritis Bladder disease Back pain History of edema History of diverticulitis Post-polio syndrome Non-smoker BiPAP (biphasic positive airway pressure) dependence History of CHF (congestive heart failure) On home oxygen therapy History of pain when walking History of stress test History of echocardiogram Chronic respiratory failure with hypoxia and hypercapnia On mechanically assisted ventilation Post-poliomyelitis syndrome Acute on chronic respiratory failure with hypoxia and hypercapnia Hypertension Lumbar radicular pain Degenerative scoliosis Scoliosis Segmental dysfunction of thoracic region Home Medications ?Medication ?Instructions ?Recorded ?Last Taken ?Type tamsulosin 0.4 mg capsule 0.4 mg PO BID prostate 02/0204/18/23 History diphenhydramine HCl 25 mg capsule 25 mg PO QHS PRN Run ny Nose 05/31/22 04/18/23 History (Benadryl) nifedipine 90 mg tablet,extended 90 mg PO QHS HEART 04/18/23 History release venlafaxine 75 mg capsule,extended 75 mg PO DAILY MOOD 05/31/22 04/18/23 History release 24 hr losartan 25 mg tablet 50 mg PO QHS BP 02/08/23 History cyanocobalamin (vitamin B-12) 500 500 mcg PO QDAY 06/22 Unknown History mcg tablet Allergy/AdvReac Type Severity Reaction Status Date / Time metronidazole (From Flagyl) AdvReac Nausea/Vom/ Verified 07/20/24 23:30 Diarrhea DECONGESTANTS AdvReac TACHYCARDIA Uncoded 07/10/24 07:42 Family History Father Myocardial infarction Heart disease Mother Shy-Drager syndrome Other CVA (cerebral vascular accident) Surgical History History of selective injection of anesthetic agent around lumbar nerve root Hx of lithotripsy History of cardiac catheterization Hx of cystoscopy H/O adenoidectomy History of uvulectomy Hip fracture, right History of open reduction and internal fixation (ORIF) procedure Right tibial fracture H/O spinal fusion Social History household members: spouse housing: house Smoking Status: Never smoker substance use type: does not use ROS ROS ED Constitutional Constitutional ED: Denies chills or fever(s) Eyes Eyes: Denies blurry vision or change in vision ENT ENT ED: Denies rhinorrhea or sore throat Cardiovascular Cardiovascular: Reports racing heartbeat; Denies chest pain or palpitations Respiratory/Chest Respiratory/Chest: Reports dyspnea; Denies cough Gastrointestinal Gastrointestinal: Denies abdominal pain, diarrhea, nausea or vomiting Genitourinary Genitourinary ED: Denies dysuria Musculoskeletal Musculoskeletal: Denies myalgias Integumentary Denies rash Neurologic Neurologic: Denies headache(s) Hematologic/Lymphatic Hematologic/Lymphatic: Denies easy bleeding or easy bruising Allergic/Immunologic Allergic/Immunologic ED: Denies mouth swelling or tongue swelling EXAM Physical Exam Const Vital Signs: 07/20/24 23:30 07/21/24 00:30 07/21/24 00:30 Temperature 98.5 F Temperature Source Temporal Pulse Rate 111 H 109 H 111 H Respiratory Rate 20 H 21 H 27 H Respiratory Pattern Blood Pressure 123/106 H 125/71 H 125/71 H Blood Pressure Mean 111 89 89 Pulse Ox 93 98 97 Oxygen Delivery Method Nasal Cannula Bi-pap Oxygen Flow Rate (L/min) 5 30 Fraction of Inspired Oxygen (FIO2) 07/21/24 00:31 07/21/24 00:35 07/21/24 00:45 Temperature 97.2 F L Temperature Source Temporal Pulse Rate 102 H 105 H 100 Respiratory Rate 20 H 22 H 18 Respiratory Pattern Tachypnea Blood Pressure 125/71 H 93/43 L Blood Pressure Mean 89 59 Pulse Ox 98 97 96 Oxygen Delivery Method Bi-pap Oxygen Flow Rate (L/min) 30 Fraction of Inspired Oxygen (FIO2) 30 07/21/24 01:00 07/21/24 01:00 07/21/24 01:15 Temperature 98.0 F Temperature Source Temporal Pulse Rate 106 H 101 H Respiratory Rate 23 H 28 H Respiratory Pattern Blood Pressure 131/70 H 131/70 H 75/40 L Blood Pressure Mean 90 90 51 Pulse Ox 96 98 Oxygen Delivery Method Bi-pap Oxygen Flow Rate (L/min) 30 Fraction of Inspired Oxygen (FIO2) 07/21/24 01:31 07/21/24 01:45 Temperature Temperature Source Pulse Rate 90 91 Respiratory Rate 19 H Respiratory Pattern Blood Pressure 79/47 L 76/48 L Blood Pressure Mean 57 57 Pulse Ox 98 Oxygen Delivery Method Bi-pap Bi-pap Oxygen Flow Rate (L/min) Fraction of Inspired Oxygen (FIO2) Positive well nourished Constitutional Narrative: Chronic lower extremity changes secondary to history of polio General Appearance ED: Negative for pallor HEENT HEENT Narrative: No tongue or lip swelling no oral lesions no airway edema or compromise No secondary findings in the posterior pharynx to suggest infection Eyes PERRL and EOMs intact bilaterally General Eye ED: Negative for pale conjunctiva or scleral icterus Neck supple and no JVD Neck Narrative: No nuchal rigidity or meningeal signs Chest Wall palpation of chest normal Chest Narrative: No subcutaneous emphysema noted Resp Resp Narrative: Breath sounds are diminished throughout with faint rhonchi mainly in the right lower lobe. There is slight accessory muscle use as well. No nasal flaring or retractions. No dyspnea with speech Cardio regular rhythm Rate: tachycardic and other Other Details: Tachycardic rate with regular rhythm Radial and carotid pulses are equal and symmetric GI normal to inspection, nondistended, normoactive bowel sounds, non-tender, non- distended and no masses Auscultation: normoactive bowel sounds Palpation: soft Back/Spine Back/Spine Narrative: Patient has severe dextroscoliosis which is chronic in nature Extremity Extremity Narrative: Chronic changes to the bilateral lower extremities secondary to history of polio but no asymmetric edema or pitting edema and negative Homans' sign bilaterally Neuro oriented x3 and CN's II-XII intact bilaterally Sensorium / Orientation: alert Psych Mood & Affect: anxious Skin no rashes or lesions noted and no wounds General Skin Exam: Negative for jaundice or pallor MDM MDM MDM Narrative Medical decision making narrative: Patient arrived to the ER tachycardic but otherwise was satting 93 to 95% on his normal 5 L. He reported concern for hypercarbia. With his report of shortness of breath there is potential for pneumonia versus congestive heart failure exacerbation versus viral infection such as COVID influenza or RSV. Patient also could have acute blood loss anemia or cardiac dysrhythmia. An EKG was obtained which showed sinus tachycardia without ischemic findings or dysrhythmia finding. Lab work showed a stable H&H without signs of acute kidney injury or elevation to his proBNP. COVID test was negative. Chest x-ray confirmed his scoliosis without obvious infiltrate. VBG showed his CO2 was elevated at 70 the chart review reveals that on July 10 he was in the ER for similar event and his CO2 at that time was 68. He was placed on BiPAP at settings of 16/8 and a proper fitting mask. While this is on his pulse ox remained 95 to 100%. After wearing it for approximately 2 hours repeat VBG was performed which shows a CO2 of 53. Therefore at this time we approved the patient that a proper fitting mask and settings of 16/8 will control his hypercarbia. He has BiPAP at home as well as oxygen he does not have signs of pneumonia or sepsis or CHF/volume overload therefore there is no need for admission and he is otherwise safe for discharge with outpatient follow-up History & Record Review Discussion w/independent historian: Patient and Significant other Lab Data Attestation: I reviewed the patient's lab results. Labs: Laboratory Results - last 24 hr 07/21/24 00:12 WBC 8.5 RBC 4.20 L Hgb 12.8 L Hct 39.4 L MCV 93.8 MCH 30.5 MCHC 32.5 RDW Std Deviation 43.8 RDW Coeff of Larry 12.8 Plt Count 208 MPV 9.1 Immature Gran % (Auto) 0.500 Neut % (Auto) 77.2 H Lymph % (Auto) 9.8 L [place] % (Auto) 10.8 H Eos % (Auto) 1.1 Baso % (Auto) 0.6 Absolute Neuts (auto) 6.6 Absolute Lymphs (auto) 0.83 Nucleated RBC % 0 Sodium 140 Potassium 4.1 Chloride 97 L Carbon Dioxide 30.7 Anion Gap 12 BUN 22 H Creatinine 0.50 L Estim Creat Clear Calc 67.27 Est GFR (MDRD) Non-Af 105 BUN/Creatinine Ratio 43.4 H Glucose 103 H Calcium 9.3 Magnesium 1.9 NT pro BNP II < 36 ABG Data ABG results: ABG 07/21/24 07/21/24 00:19 01:45 Specimen Type ROMINA ROMINA Sample Site Not entered Not entered O2 % 5.0 30.0 VBG pH 7.36 7.45 H VBG pO2 114 H 37 VBG HCO3 40 H 37 H VBG Total CO2 42 H 39 H VBG O2 Sat (Calc) 98 H 72 H VBG Base Excess 15 H 13 H POC Mix VBG pCO2 Pt Tmp 70.0 H 53.2 H O2 Delivery Device Cannula BiPAP Clinical Comments 16. 8. 30% Radiography Diagnostic Testing: Clinical Impression(s) from Imaging Studies Chest X-Ray 07/21/24 00:01 IMPRESSION: No evidence of acute disease. 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, Restrictive airway disease, Scoliosis Instructions: ED Dyspnea Prescriptions: No Action cyanocobalamin (vitamin B-12) 500 mcg tablet 500 mcg PO QDAY tamsulosin 0.4 MG capsule 0.4 mg PO BID diphenhydramine HCl [Benadryl] 25 mg Capsule 25 mg PO QHS PRN (Reason: Runny Nose) venlafaxine 75 mg capsule,extended release 24hr 75 mg PO DAILY nifedipine 90 mg tablet extended release 90 mg PO QHS losartan 25 mg tablet 50 mg PO QHS Primary Care Provider: Luis Medina Referrals: Luis Medina MD [Primary Care Provider] - Activity Restrictions/Additional Instructions: Your workup today displayed that with BiPAP settings of 16/8 and a proper fitting mask that you are elevated CO2 is essentially normal after use. The remainder of your testing revealed no clinically significant changes from your evaluation on July 10. Talk to your family doctor about changing the BiPAP settings and ensuring that you have a proper fitting mask and return to the ER should you have any further concerns Print Language: Estonian Disposition Disposition: Home, Self Care
== END 2024-07-21 02:44 | disposition home or self-care (01) ==
PROVIDERS: Emergency Provider Emergency Medicine; PCP Family Medicine; Visit Provider Emergency Medicine
DX: G47.31 Primary central sleep apnea (principal); I11.0 Hypertensive heart disease with heart failure; I50.9 Heart failure, unspecified; M41.9 Scoliosis, unspecified; J98.4 Other disorders of lung; Z79.899 Other long term (current) drug therapy
CPT/HCPCS: 99283; 71045; 80048; 82803; 83735; 83880; 85025; 87631; 93005; 94002; A4216

== ENCOUNTER 2024-07-22 12:43 | Observation (INO) | payer MEDICARE, SELFPAY ==
[2024-07-22] VITALS (9 sets, daily range): BP systolic 89–116; BP diastolic 65–80; PULSE 66–107; RESP 17–24; TEMP 36.6–36.9; O2SAT 91–99; BMI 21.4; BMI 20.7
--- NOTE | 2024-07-22 13:04 | EKG12_ITS ---
Test Reason : SOB Blood Pressure : */* mmHG Vent. Rate : 116 BPM Atrial Rate : 116 BPM P-R Int : 158 ms QRS Dur : 60 ms QT Int : 294 ms P-R-T Axes : 28 -2 59 degrees QTcB Int : 408 ms Sinus tachycardia with Premature atrial complexes with Aberrant conduction Possible Left atrial enlargement Cannot rule out Inferior infarct , age undetermined Abnormal ECG Confirmed by Matt Machado ([id number]), video tape editor ОЛЬГА MARQUEZ ([id number]) on 07/23/2024 7:50:11 AM Referred By: Confirmed By: Matt Machado
--- NOTE | 2024-07-22 13:04 | EKG12_ITS ---
Test Reason : SOB Blood Pressure : */* mmHG Vent. Rate : 179 BPM Atrial Rate : 159 BPM P-R Int : 192 ms QRS Dur : 70 ms QT Int : 262 ms P-R-T Axes : -67 -7 67 degrees QTcB Int : 452 ms Critical Test Result: High HR afib with RVR Nonspecific ST and T wave abnormality Abnormal ECG Confirmed by Matt Machado ([id number]), group sales manager ОЛЬГА MARQUEZ ([id number]) on 07/23/2024 7:48:18 AM Referred By: Confirmed By: Matt Machado
--- NOTE | 2024-07-22 13:07 | EDS_ITS ---
HPI History of Present Illness Chief Complaint: Dizziness Detail of Chief Complaint: Dizziness/syncope Informant: patient and spouse/S.O. Onset/Context/Timing Onset: Today Context: Sudden Onset Timing: Intermittent Quality: Was getting close out of a drawer when he passed out Location: Home Current Severity: Mild Maximum Severity: Severe Worsened by: Suspect due to narrow complex tachycardia rate 150-2 30 Relieved by: Spontaneous resolution Associated Symptoms Associated Symptoms: Lightheadedness Narrative Narrative: Patient is a 79-year-old male. He has history of hypertension on nifedipine 90 mg at nighttime and losartan 25 mg in the morning 50 mg at nighttime. He presents because of syncopal episode. He does not have history of coronary disease, dysrhythmia and presently denies chest pain. 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 He denies infectious symptoms. He does have history of inflammatory bowel disorder. He has had 2 episodes of diarrhea since yesterday. He noted mucus in his stool. He denies any new medications or change in doses of his present medications. He denies headache, visual, ocular auditory symptoms. No trouble speech or swallowing. He denies abdominal pain. He denies nausea or vomiting. He denies dysuria, frequency, urgency or hematuria. 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 Wears glasses Cancer Depression Claustrophobia Anxiety Alcohol use Redness of skin Uses crutches Arthritis Bladder disease Back pain History of edema History of diverticulitis Post-polio syndrome Non-smoker BiPAP (biphasic positive airway pressure) dependence History of CHF (congestive heart failure) On home oxygen therapy History of pain when walking History of stress test History of echocardiogram Chronic respiratory failure with hypoxia and hypercapnia On mechanically assisted ventilation Post-poliomyelitis syndrome Acute on chronic respiratory failure with hypoxia and hypercapnia Hypertension Lumbar radicular pain Degenerative scoliosis Scoliosis Segmental dysfunction of thoracic region Home Medications ?Medication ?Instructions ?Recorded ?Last Taken ?Type tamsulosin 0.4 mg capsule 0.4 mg PO BID prostate 02/0204/18/23 History nifedipine 90 mg tablet,extended 90 mg PO QHS HEART 02 /08/23 12/27/23 History release venlafaxine 75 mg capsule,extended 75 mg PO DAILY MOOD 05/31/22 04/18/23 History release 24 hr losartan 25 mg tablet 50 mg PO QHS BP 02/08/23 History cyanocobalamin (vitamin B-12) 500 500 mcg PO QDAY 06/22 Unknown History mcg tablet Allergy/AdvReac Type Severity Reaction Status Date / Time metronidazole (From Flagyl) AdvReac Nausea/Vom/ Verified 07/22/24 12:52 Diarrhea Family History Father Myocardial infarction Heart disease Mother Shy-Drager syndrome Other CVA (cerebral vascular accident) Surgical History History of selective injection of anesthetic agent around lumbar nerve root Hx of lithotripsy History of cardiac catheterization Hx of cystoscopy H/O adenoidectomy History of uvulectomy Hip fracture, right History of open reduction and internal fixation (ORIF) procedure Right tibial fracture H/O spinal fusion Social History household members: spouse housing: house Smoking Status: Never smoker substance use type: does not use ROS ROS ED Constitutional Constitutional ED: Denies chills, fever(s), subjective or sweats Eyes Eyes: Denies blurry vision or change in vision ENT ENT ED: Denies ear pain, rhinorrhea or sore throat Cardiovascular Cardiovascular: Denies chest pain, palpitations, paroxysmal nocturnal dyspnea or racing heartbeat Respiratory/Chest Respiratory/Chest: Denies cough, dyspnea, dyspnea on exertion or paroxysmal nocturnal dyspnea Gastrointestinal Gastrointestinal: Reports diarrhea; Denies abdominal pain, nausea or vomiting Genitourinary Genitourinary ED: Denies dysuria, hematuria or urinary frequency Musculoskeletal Musculoskeletal: Denies arthralgias or neck pain Integumentary Denies rash Neurologic Neurologic: Reports weakness; Denies headache(s) or paresthesias Psychiatric Psychiatric: Reports anxiety Endocrine Endocrinology: Denies cold intolerance or heat intolerance Hematologic/Lymphatic Hematologic/Lymphatic: Reports systems reviewed and no addt'l complaints, except as documented EXAM Physical Exam Const Vital Signs: 07/22/24 12:44 07/22/24 12:47 07/22/24 13:44 Temperature 98.0 F Temperature Source Oral Pulse Rate 107 H 102 H 96 Respiratory Rate 18 17 24 H Blood Pressure 114/65 114/65 103/79 Blood Pressure Mean 81 81 87 Pulse Ox 92 96 97 Oxygen Delivery Method Room Air Room Air Nasal Cannula Oxygen Flow Rate (L/min) 5 Positive well nourished and well developed Constitutional Narrative: Patient appears tachypneic. This is due to his restrictive lung disease. General Appearance ED: well developed; Negative for NAD or pallor HEENT Reports moist mucous membranes HEENT Narrative: Head is atraumatic normocephalic. Ears normal. Nares patent Eyes PERRL and EOMs intact bilaterally General Eye ED: Negative for pale conjunctiva or scleral icterus Neck no lymphadenopathy and no JVD Chest Wall inspection of chest normal and palpation of chest normal Resp No normal respiratory effort and clear to auscultation bilaterally Resp Narrative: Diminished breath sounds. Breath sounds are symmetric. Cardio regular rate, regular rhythm, S1 normal heart sound, S2 normal heart sound and no murmurs Rate: tachycardic and other Other Details: Rhythm changes. He has a narrow complex tachycardia. At times it appears to be A-fib. At times uncertain. GI normal to inspection, nondistended, normoactive bowel sounds, non-tender, non- distended and no masses; Negative for hepatosplenomegaly Back/Spine no CVA tenderness Extremity normal to inspection Neuro oriented x3, CN's II-XII intact bilaterally and no sensory deficits noted Sensorium / Orientation: alert Motor Exam: strength 5/5 throughout Psych Mood & Affect: anxious Skin no rashes or lesions noted, no wounds and skin turgor normal General Skin Exam: Negative for jaundice or pallor MDM MDM MDM Narrative Medical decision making narrative: Patient with narrow complex symptomatic tachycardia. This may represent a PSVT versus A-fib with RVR, which would be new onset, question of a flutter since at 1 point the monitor revealed a rate of 150. In light of his pulmonary disease due to polio amiodarone is not recommended. Case was discussed with Dr. Matt thompson. Plan is sotalol 80 mg twice daily. He will receive his first dose in the emergency department. He states patient will need to be admitted. Lab Data Attestation: I reviewed the patient's lab results. Lab results narrative: CBC reveals an elevated white count with slight shift. Electrolyte panel is remarked for CO2 of 33.1. Troponin is elevated 25 which is his baseline. Labs: Laboratory Results - last 24 hr 07/22/24 07/22/24 07/22/24 12:59 12:59 13:20 WBC Cancelled 14.1 H Corrected WBC Cancelled RBC Cancelled 4.28 L Hgb Cancelled 12.9 L Hct Cancelled 40.3 MCV Cancelled 94.2 H MCH Cancelled 30.1 MCHC Cancelled 32.0 RDW Std Deviation Cancelled 44.2 H RDW Coeff of Larry Cancelled 12.9 Plt Count Cancelled 205 MPV Cancelled 10.1 Immature Gran % (Auto) Cancelled 0.700 Neut % (Auto) Cancelled 85.4 H Lymph % (Auto) Cancelled 3.6 L [place] % (Auto) Cancelled 9.6 Eos % (Auto) Cancelled 0.3 Baso % (Auto) Cancelled 0.4 Absolute Neuts (auto) Cancelled 12.0 H Absolute Lymphs (auto) Cancelled 0.51 L Total Counted Cancelled Neutrophils % (Manual) Cancelled Band Neutrophils % Cancelled Lymphocytes % (Manual) Cancelled Monocytes % (Manual) Cancelled Eosinophils % (Manual) Cancelled Basophils % (Manual) Cancelled Metamyelocytes % Cancelled Myelocytes % Cancelled Promyelocytes % Cancelled Blast Cells % Cancelled Plasma Cell % (Manual) Cancelled Other Cells % Cancelled Nucleated RBC % Cancelled 0 Nucleated RBCs/100 WBC Cancelled Differential Comment Cancelled Diff Path Review Cancelled Hypersegmented Neuts Cancelled Atypical Lymphocytes Cancelled Reactive Lymphocytes Cancelled Smudge Cells Cancelled Toxic Granulation Cancelled Toxic Vacuolation Cancelled Dohle Bodies Cancelled Alondra Rods Cancelled Platelet Estimate Cancelled Plt Morphology Comment Cancelled RBC Morphology Cancelled Cancelled Polychromasia Cancelled Hypochromasia Cancelled Basophilic Stippling Cancelled Anisocytosis Cancelled Microcytosis Cancelled Macrocytosis Cancelled Spherocytes Cancelled Sickle Cells Cancelled Target Cells Cancelled Tear Drop Cells Cancelled Ovalocytes Cancelled Stomatocytes Cancelled Kaplan-[place] Bodies Cancelled Hayley Cells Cancelled Bite Cells Cancelled Crenated Cell Cancelled Acanthocytes (Spur) Cancelled Rouleaux Cancelled Schistocytes Cancelled Sodium 141 Potassium 4.3 Chloride 96 L Carbon Dioxide 33.1 H Anion Gap 12 BUN 17 Creatinine 0.55 L Estim Creat Clear Calc 63.90 Est GFR (MDRD) Non-Af 102 BUN/Creatinine Ratio 31.0 H Glucose 114 H Calcium 9.5 Troponin T High Sens 25 H Radiography Chest X-Ray - ED: 1 View, Read by ED Physician (Chronic changes and unchanged from July 21. Patient's lung volume is significantly restricted on the right. There are some chronic changes noted. There is some evidence of degenerative change of the osseous structures.) and Chronic Changes Diagnostic Testing: Clinical Impression(s) from Imaging Studies Chest X-Ray 07/22/24 13:25 IMPRESSION: Stable examination. Reading Location: [facility] EKG Initial EKG: Attestation: I personally reviewed and interpreted this EKG as follows: Interpretation: Sinus Tachycardia (Rate is 116. There are premature atrial complexes. Parables under 58 ms. Cures duration 60 ms. QT duration 294 ms. [place] is normal. There may be left atrial enlargement.) Follow-up EKG: Attestation: I personally reviewed and interpreted this EKG as follows: Interpretation: - (Narrow complex tachycardia rate of 179. This probably represents A-fib. QRS duration 70 ms. QT duration 262 ms. [place] is normal. There is no obvious ischemic changes.) Management Discussion w/another healthcare provider: Hospitalist (History physical and discussion had with Dr. Feng use was related to the hospitalist Dr. Bryant. Full admit PCU) and Director Channel (Spoke with Dr. Jung Machado regarding patient's history, physical and findings. After discussion recommended sotalol. He recommended 80 mg twice daily. 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
--- NOTE | 2024-07-22 13:25 | RAD_ITS ---
PROCEDURE: CHEST 1 VIEW (PORTABLE) 07/22/2024 REASON FOR EXAM: DYSPNEA TECHNIQUE: Frontal view of the chest. COMPARISON: Comparison is made with prior study dated July 21, 2024. FINDINGS: Hardware: EKG electrodes are seen. Heart: Heart size is mildly enlarged. Lungs: There is loss of volume in the right hemithorax due to the marked degree of dextroconvex scoliosis. Stable mild linear atelectasis at the lung bases slightly more prominent on the left side. Bones: Marked dextroconvex scoliosis. Other: Calcification of the aortic arch. RAD/Chest 1 View (Portable) IMPRESSION: Stable examination. Reading Location: [facility]
[2024-07-22] MEDS: Sotalol Hydrochloride 80 MG Tablet PO ×2 (13:27→20:32)
[2024-07-22 13:44] LABS: Absolute Lymphocyte Count 0.51 X10^3/uL (0.83-4.51); Basophil# 0.06 X10^3/uL; Basophil% 0.4 % (0-1); Eosinophil# 0.04 X10^3/uL; Eosinophils% 0.3 % (0-5); Hematocrit 40.3 % (40-54); Hemoglobin 12.9 g/dL (13.0-16.5); Lymphocyte # 0.51 X10^3/ul (0.83-4.51); Lymphocyte % 3.6 % (19-41); Mean Corpuscular Hgb 30.1 pg (27.0-32.0); Mean Corpuscular Volume 94.2 fL (80-94); Mean Platelet Vol. 10.1 fl (6.2-12.0); Monocyte# 1.35 X10^3/uL; Monocyte% 9.6 % (0-10); NRBC Flagged by Analyzer 0 % (0-5); Neutrophil % 85.4 % (47-70); POSITIVE DIFFERENTIAL YES; Platelet Count 205 K/mm3 (150-450); RBC Distribution Width CV 12.9 % (11.6-14.6); RBC Distribution Width SD 44.2 fl (35.1-43.9); Red Blood Count 4.28 M/mm3 (4.6-6.2); White Blood Count 14.1 K/mm3 (4.4-11.0)
[2024-07-22 13:46] LABS: Anion Gap 12 (5-15); BUN 17 mg/dL (4-19); Calcium,Total 9.5 mg/dL (7.6-11.0); Carbon Dioxide 33.1 mmol/L (21.0-32.0); Chloride 96 mmol/L (98-108); Creatinine, Serum 0.55 mg/dL (0.70-1.20); EST Glomerular Filtration Rate 102 (>60); Glucose 114 mg/dL (70-99); Potassium 4.3 mmol/L (3.3-5.1); Sodium Level 141 mmol/L (133-145); Troponin T High Sensitivity 25 ng/L (<=22)
--- NOTE | 2024-07-22 14:13 | HP.PCM.HOS_ITS ---
HPI - General General Date of Admission: 07/22/24 Date of Service: 07/22/24 Chief Complaint: dizziness HPI Narrative BERNARDA JOSEPH, is a 79 M with a PMH as outlined who presents via the ED on 07/22/2024 with a complaint of dizziness and syncope. He denied any chest pain, nausea, vomiting or any other symptoms. He does have a history of restrictive lung disease due to polio and also does inflammatory bowel disorder. He admitted to diarrhea also x 2 since yesterday. Review of systems was otherwise negative. He has not had such dizziness or lightheadedness in the past before. Vitals in the ED were BP of 103/79, [place] of 96, RR of 24 and he was saturating at 97% on 5L of oxygen. CBC showed Hb of 12.9, wbc of 14.1 qnd platelets of 205. Chemistry showed sodium of 141, potassium of 4.3, bicarb of 33.1 and Cr of 0.55. Initial high sensitivity troponin was 25. Chest xray showed loss of volume in right hemithorax due to dextroconvex scoliosis, but showed no acute pathology. He was noted to be in narrow complex tachycardia in the ED. He was given sotalol in the ED per cardiology rec's, and he is being admitted to be managed for syncope due to narrow complex tachycardia. 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 Wears glasses Cancer Depression Claustrophobia Anxiety Alcohol use Redness of skin Uses crutches Arthritis Bladder disease Back pain History of edema History of diverticulitis Post-polio syndrome Non-smoker BiPAP (biphasic positive airway pressure) dependence History of CHF (congestive heart failure) On home oxygen therapy History of pain when walking History of stress test History of echocardiogram Chronic respiratory failure with hypoxia and hypercapnia On mechanically assisted ventilation Post-poliomyelitis syndrome Acute on chronic respiratory failure with hypoxia and hypercapnia Hypertension Lumbar radicular pain Degenerative scoliosis Scoliosis Segmental dysfunction of thoracic region Home Medications ?Medication ?Instructions ?Recorded ?Last Taken ?Type tamsulosin 0.4 mg capsule 0.4 mg PO BID prostate 02/0207/22/24 History nifedipine 90 mg tablet,extended 90 mg PO QHS HEART 07/21/24 History release venlafaxine 75 mg capsule,extended 75 mg PO DAILY MOOD 05/31/22 07/22/24 History release 24 hr cyanocobalamin (vitamin B-12) 500 500 mcg PO DAILY sup plement 07/10/24 07/22/24 History mcg tablet diphenhydramine HCl 25 mg capsule 25 mg PO QHS allergi es 07/22/24 07/21/24 History (Allergy (diphenhydramine)) losartan 50 mg tablet 50 mg PO QHS blood pressure 07/22/24 07/21/24 History Allergy/AdvReac Type Severity Reaction Status Date / Time metronidazole (From Flagyl) AdvReac Nausea/Vom/ Verified 07/22/24 12:52 Diarrhea Family History Father Myocardial infarction Heart disease Mother Shy-Drager syndrome Other CVA (cerebral vascular accident) Surgical History History of selective injection of anesthetic agent around lumbar nerve root Hx of lithotripsy History of cardiac catheterization Hx of cystoscopy H/O adenoidectomy History of uvulectomy Hip fracture, right History of open reduction and internal fixation (ORIF) procedure Right tibial fracture H/O spinal fusion Social History household members: spouse housing: house Smoking Status: Never smoker substance use type: does not use ROS Constitutional Constitutional: Reports fatigue, malaise and weakness; Denies anorexia, chills or fever(s) Eyes Eyes: Denies change in vision ENT HEENT: Denies dysphagia or headache(s) Cardiovascular Cardiovascular: Reports dyspnea on exertion, lightheadedness, palpitations, rapid heart rate and syncope; Denies chest pain, edema, orthopnea or paroxysmal nocturnal dyspnea Respiratory/Chest Respiratory/Chest: Reports shortness of breath at rest and shortness of breath with exertion; Denies cough, dyspnea, productive cough or wheezing Gastrointestinal Gastrointestinal: Denies abdominal pain, nausea or vomiting Genitourinary Genitourinary: Denies burning urination or dysuria Neurologic Neurologic: Denies confusion, dizziness, focal weakness, headache(s), seizure- like activity or seizures Psychiatric Psychiatric: Denies anxiety or depression Vital Signs Vital Signs Vital Signs: 07/22/24 12:44 07/22/24 12:47 07/22/24 13:44 Temperature 98.0 F Temperature Source Oral Pulse Rate 107 H 102 H 96 Respiratory Rate 18 17 24 H Blood Pressure 114/65 114/65 103/79 Blood Pressure Mean 81 81 87 Pulse Ox 92 96 97 Oxygen Delivery Method Room Air Room Air Nasal Cannula Oxygen Flow Rate (L/min) 5 Weight Weight: 128 lb 12.8 oz Body Mass Index (BMI) 21.4 Physical Exam Const alert, oriented x3 and no apparent distress General Appearance: Negative for cooperative HEENT normocephalic, hearing grossly normal bilaterally, moist oral mucous membranes and oropharynx normal Mouth: oral and palatal mucosa normal Eyes PERRL, EOMs intact bilaterally and conjunctivae normal Neck no lymphadenopathy, supple and no JVD Resp Resp Narrative: mildly diminished breath sounds bibasally, worse on the right side. no wheezes or crackles. On 4L of oxygen by nasal canula Cardio regular rate, regular rhythm, S1 normal heart sound, S2 normal heart sound and no murmurs Cardio Narrative: episodic tachycardia GI normal to inspection, nondistended, normoactive bowel sounds, soft to palpation, non-tender and non-distended Extremity normal to inspection, full ROM and no clubbing, cyanosis or edema Extremity Narrative: has scoliosis of the spine Neuro oriented x3, CN's II-XII intact bilaterally, moves all extremities and no focal motor deficits Motor Exam: strength 5/5 throughout Psych affect normal Results Lab / Micro Data 07/22/24 13:20 07/22/24 12:59 Labs: Laboratory Results - last 24 hr 07/22/24 12:59: WBC Cancelled, Corrected WBC Cancelled, RBC Cancelled, Hgb Cancelled, Hct Cancelled, MCV Cancelled, MCH Cancelled, MCHC Cancelled, RDW Std Deviation Cancelled, RDW Coeff of Larry Cancelled, Plt Count Cancelled, MPV Cancelled, Immature Gran % (Auto) Cancelled, Neut % (Auto) Cancelled, Lymph % (Auto) Cancelled, [place] % (Auto) Cancelled, Eos % (Auto) Cancelled, Baso % (Auto) Cancelled, Absolute Neuts (auto) Cancelled, Absolute Lymphs (auto) Cancelled, Total Counted Cancelled, Neutrophils % (Manual) Cancelled, Band Neutrophils % Cancelled, Lymphocytes % (Manual) Cancelled, Monocytes % (Manual) Cancelled, Eosinophils % (Manual) Cancelled, Basophils % (Manual) Cancelled, Metamyelocytes % Cancelled, Myelocytes % Cancelled, Promyelocytes % Cancelled, Blast Cells % Cancelled, Plasma Cell % (Manual) Cancelled, Other Cells % Cancelled, Nucleated RBC % Cancelled, Nucleated RBCs/100 WBC Cancelled, Differential Comment Cancelled, Diff Path Review Cancelled, Hypersegmented Neuts Cancelled, Atypical Lymphocytes Cancelled, Reactive Lymphocytes Cancelled, Smudge Cells Cancelled, Toxic Granulation Cancelled, Toxic Vacuolation Cancelled, Dohle Bodies Cancelled, Alondra Rods Cancelled, Platelet Estimate Cancelled, Plt Morphology Comment Cancelled, RBC Morphology Cancelled 07/22/24 12:59: RBC Morphology Cancelled, Polychromasia Cancelled, Hypochromasia Cancelled, Basophilic Stippling Cancelled, Anisocytosis Cancelled, Microcytosis Cancelled, Macrocytosis Cancelled, Spherocytes Cancelled, Sickle Cells Cancelled, Target Cells Cancelled, Tear Drop Cells Cancelled, Ovalocytes Cancelled, Stomatocytes Cancelled, Kaplan-[place] Bodies Cancelled, Hayley Cells Cancelled, Bite Cells Cancelled, Crenated Cell Cancelled, Acanthocytes (Spur) Cancelled, Rouleaux Cancelled, Schistocytes Cancelled, Sodium 141, Potassium 4.3, Chloride 96 L, Carbon Dioxide 33.1 H, Anion Gap 12, BUN 17, Creatinine 0.55 L, Estim Creat Clear Calc 63.90, Est GFR (MDRD) Non-Af 102, BUN/Creatinine Ratio 31.0 H, Glucose 114 H, Calcium 9.5, Troponin T High Sens 25 H 07/22/24 13:20: WBC 14.1 H, RBC 4.28 L, Hgb 12.9 L, Hct 40.3, MCV 94.2 H, MCH 30.1, MCHC 32.0, RDW Std Deviation 44.2 H, RDW Coeff of Larry 12.9, Plt Count 205, MPV 10.1, Immature Gran % (Auto) 0.700, Neut % (Auto) 85.4 H, Lymph % (Auto) 3.6 L, [place] % (Auto) 9.6, Eos % (Auto) 0.3, Baso % (Auto) 0.4, Absolute Neuts (auto) 12.0 H, Absolute Lymphs (auto) 0.51 L, Nucleated RBC % 0 Imaging Radiology Impression Chest X-Ray 07/22/24 13:25 IMPRESSION: Stable examination. Reading Location: [facility] Assessment & Plan Assessment/Plan (1) Syncope, cardiogenic: (2) Narrow complex tachycardia: PLAN: Plan #Syncope probably due to narrow complex tachycardia * admit to PCU * Admitted with a complaint of syncope and palpitations. Was found to be narrow complex ventricular tachycardia on admission. * EKG showed no acute ST changes. Chest x-ray showed no acute cardiopulmonary pathology. * Cardiology was consulted from ED recommended that patient be started on sotalol 80 mg twice daily. He did receive a dose of sotalol in the ED and heart rate has improved. * Order 2D echo. Consult cardiology. * Cycle troponins. * #Hypertension: On losartan and nifedipine. Hold these due to BP running low after he received the sotalol #BPH: On Flomax #History of restrictive lung disease due to childhood polio * Wears oxygen at home. Titrate oxygen to maintain saturation above 90%. * says he has an external ventilator device that he uses at home at night to help with his respiration and prevent CO2 buildup. Patient advised to have the external ventilator brought in to be used in the hospital. * Says he was told about a week ago when he came into the ED with similar symptoms that the settings on his external ventilator will need to be adjusted to prevent buildup of his CO2. Patient counseled that he could follow-up with pulmonology for this but if during the hospital stay he was noticed that his CO2 had gone up then pulmonology could be consulted. #History of degenerative scoliosis: due to childhood polio. Has the external ventilator device he uses at night. DVT prophylaxis: Lovenox Code status: full code * Patient counseled extensively about different types of CODE STATUS including full code, DNR CCA and DNR CCA. Patient elects to be full code. * Total [id number] time 17 minutes. Charges/Coding Visit Charges Inpatient E&M: 65698 Init Hosp L3 Procedures Hospitalists Procedures: 19179 Advncd Care Plan 30 Min
[2024-07-22] MEDS: APIXABAN 5 MG TABLET PO ×2 (14:30→20:37)
--- NOTE | 2024-07-22 15:23 | ECHOCS_ITS ---
Reason For Study Reason For Study: Arrhythmia Procedure This was a 2D Doppler, Color Flow transthoracic echocardiogram. Contrast injection was performed. Exam performed portable in patient room. Left Ventricle Normal LV size. Left ventricular systolic function is normal. The left ventricular ejection fraction is 55 %. No regional wall motion abnormalities noted. Right Ventricle Normal RV size. Normal systolic function. Atria Normal left atrium. Normal right atrium. Mitral Valve Normal mitral valve. Tricuspid Valve Normal tricuspid valve. Mild (1+) tricuspid valve insufficiency. Pulmonary artery systolic pressure is 35 mmHg. Aortic Valve Trisinus/trileaflet aortic valve. Pulmonic Valve Normal pulmonic valve. Great Vessels Normal aortic root. The pulmonary artery is normal size. Inferior vena cava collapse with sniff. Pericardium/Pleural No pericardial effusion. Medication Diluted definity 1ml given slow IV push to enhance endocardial definition. MMode/2D Measurements & Calculations LVIDd: 3.3 cm IVSd: 0.74 cm Ao root diam: 3.4 cm LVIDs: 2.7 cm LVPWd: 0.70 cm RVDd: 4.0 cm FS: 18.9 % LAV(MOD-bp): 52.3 ml LVAd ap4: 30.2 cm2 SV(MOD-sp4): 46.6 ml LAV(MOD-bp) Indexed: 31.8 ml/m2 LVLd ap4: 8.4 cm SI(MOD-sp4): 28.4 ml/m2 LAV(MOD-sp2): 46.3 ml EDV(MOD-sp4): 92.8 ml LAV(MOD-sp4): 59.9 ml EDV(sp4-el): 92.0 ml LVAs ap4: 19.1 cm2 LVLs ap4: 7.0 cm ESV(MOD-sp4): 46.2 ml ESV(sp4-el): 44.3 ml EF(MOD-sp4): 50.2 % EF(sp4-el): 51.9 % SV(sp4-el): 47.8 ml LA A4 area: 19.9 cm2 LA dimension(2D): 3.3 cm RA A4 area: 18.9 cm2 TAPSE: 1.5 cm Time Measurements MV dec time: 0.20 sec Doppler Measurements & Calculations MV E max jensen: 86.7 cm/sec Lat Peak E' Jensen: 14.1 cm/sec Med Peak E' Jensen: 12.3 cm/sec MV A max jensen: 76.0 cm/sec E/E' lat: 6.2 E/E' med: 7.1 MV E/A: 1.1 MV V2 max: 95.2 cm/sec MV P1/2t max jensen: 95.8 cm/sec Ao V2 max: 107.2 cm/sec MV max P.6 mmHg MV P1/2t: 67.9 msec Ao max P.7 mmHg MV V2 mean: 61.3 cm/sec MV dec slope: 413.3 cm/sec2 MV mean P.7 mmHg MVA(P1/2t): 3.2 cm2 MV V2 VTI: 26.5 cm LV V1 max: 77.7 cm/sec TR max jensen: 284.2 cm/sec LV V1 max P.4 mmHg TR max P.3 mmHg ECHO/Echo Complete W/ Contrast Interpretation Summary Normal LV size. Left ventricular systolic function is normal. The left ventricular ejection fraction is 55 %. Pulmonary artery systolic pressure is 35 mmHg. Contrast injection was performed. Ordering Physician: Johana Bryant Performed By: Clayton Hsieh RCS
--- NOTE | 2024-07-22 16:11 | PCM.CONS.C ---
Assessment & Plan Assessment/Plan (1) Syncope, cardiogenic: PLAN: Patient's syncope was preceded by a dizzy sensation and a hot sensation in his face. He has been having multiple episodes like this 8-10 today prior to his admission. The one that prompted his admission as he was standing on his crutches and did not get into a seated position and fell back onto a carpeted floor. He did not lose consciousness and did not have any significant head trauma or other physical trauma. This was witnessed by his . The patient presented to the emergency department in atrial fibrillation with a heart rate of 177 on his EKG. He subsequently converted to sinus rhythm with PACs. But had recurrent episodes of atrial fibrillation in the emergency department associated with dizziness. Patient was given a dose of Eliquis 5 mg and sotalol 80 mg. The patient has remained in sinus rhythm on telemetry QT interval was approximately 400 ms on his sinus rhythm ECG after he spontaneously converted from the atrial fibrillation in the ED. Recommend we continue the Eliquis 5 mg twice daily and the sotalol 80 mg twice daily. Will check QT interval every morning x 2 days. (2) History of hypertension: PLAN: Patient's blood pressure is on the low side since his admission. He is on nifedipine 90 mg daily. And losartan 50 mg daily. We will hold both of these medicines until we can adjudicate his rate control and rhythm control with sotalol. (3) Chronic respiratory failure with hypoxia and hypercapnia: PLAN: Patient is on BiPAP with 5 L nasal cannula at night and is on nasal cannula during the day continuous oxygen at home. (4) Central sleep apnea: PLAN: Treated with BiPAP. (5) Paroxysmal atrial fibrillation: PLAN: Patient is new onset paroxysmal atrial fibrillation was documented in the ER today and it coincided with the dizzy hot sensations he was feeling in the home environment. These have been going on for some time but lasting only 30 seconds at a time. PLAN: Plan 1. Continue sotalol 80 mg twice daily. 2. Check daily ECG for QT interval. 3. Recommend start Eliquis 5 mg twice daily and monitor closely for fall risk. 4. Recommend hold nifedipine and losartan. Will reintroduce losartan as blood pressure tolerates and then nifedipine and/or diltiazem depending on the echo results and heart rate response. 5. Will check echocardiogram for LV function and any occult valvular heart disease as well as atrial sizes. HPI Consult Data Date of Consult: 07/22/24 HPI Narrative Reason for Consultation: Paroxysmal atrial fibrillation and syncope HPI Narrative: BERNARDA JOSEPH, is a 79 M who presents to [facility] after a syncopal episode this morning. The patient reports that he has been having dizzy spells for some time that last about 30 seconds and resolve spontaneously. Today while standing in the bathroom door he had one of the spells and lost consciousness and fell back onto a carpeted floor. He did not have any significant trauma. He does walk with crutches due to having polio at age 6 and progressive weakness of his lower extremities over the last several years. 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 He had prior history of syncope related to hypercapnia. He has been on home oxygen therapy since that episode 2 years ago. Patient is treated with nocturnal BiPAP and 5 L nasal cannula. The patient was documented to be in atrial fibrillation with a rapid ventricular rate of 170 bpm when he was symptomatic with dizziness in the emergency department. He was episodically going in and out of atrial fibrillation. His blood pressure was 90?115 systolic. He was primarily in sinus rhythm with frequent PACs in the emergency department. The patient does not have any history of heart failure denies any prior history of coronary artery disease or ischemic events. There is no family history of coronary artery disease or cardiac issues. The patient reports that he has chronic pain that had been controlled for about 12 years with Percocet but he stopped this about 2 years ago to try and live without it. The patient has no history of GI bleeds or any type of bleeding risk. He does have a risk of falls. Patient denies any history of diabetes. [facility], [facility] Medical History 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 Wears glasses Cancer Depression Claustrophobia Anxiety Alcohol use Redness of skin Uses crutches Arthritis Bladder disease Back pain History of edema History of diverticulitis Post-polio syndrome Non-smoker BiPAP (biphasic positive airway pressure) dependence History of CHF (congestive heart failure) On home oxygen therapy History of pain when walking History of stress test History of echocardiogram Chronic respiratory failure with hypoxia and hypercapnia On mechanically assisted ventilation Post-poliomyelitis syndrome Acute on chronic respiratory failure with hypoxia and hypercapnia Hypertension Lumbar radicular pain Degenerative scoliosis Scoliosis Segmental dysfunction of thoracic region Home Medications ?Medication ?Instructions ?Recorded ?Last Taken ?Type tamsulosin 0.4 mg capsule 0.4 mg PO BID prostate 02/03/20 07/22/24 History nifedipine 90 mg tablet,extended 90 mg PO QHS HEART 05/31/22 07/21/24 History release venlafaxine 75 mg capsule,extended 75 mg PO DAILY MOOD 05/31/22 07/22/24 History release 24 hr cyanocobalamin (vitamin B-12) 500 500 mcg PO DAILY supplement 07/10/24 07/22/24 History mcg tablet diphenhydramine HCl 25 mg capsule 25 mg PO QHS allergies 07/22/24 07/21/24 History (Allergy (diphenhydramine)) losartan 50 mg tablet 50 mg PO QHS blood pressure 07/22/24 07/21/24 History Allergy/AdvReac Type Severity Reaction Status Date / Time metronidazole (From Flagyl) AdvReac Nausea/Vom/ Verified 07/22/24 12:52 Diarrhea Family History Father Myocardial infarction Heart disease Mother Shy-Drager syndrome Other CVA (cerebral vascular accident) Surgical History History of selective injection of anesthetic agent around lumbar nerve root Hx of lithotripsy History of cardiac catheterization Hx of cystoscopy H/O adenoidectomy History of uvulectomy Hip fracture, right History of open reduction and internal fixation (ORIF) procedure Right tibial fracture H/O spinal fusion Social History household members: spouse housing: house Smoking Status: Never smoker substance use type: does not use ROS Constitutional Constitutional: Reports as per HPI Eyes Eyes: Reports systems reviewed and no addt'l complaints, except as documented ENT HEENT: Reports systems reviewed and no addt'l complaints, except as documented Cardiovascular Cardiovascular: Reports as per HPI Respiratory/Chest Respiratory/Chest: Reports as per HPI Gastrointestinal Gastrointestinal: Reports as per HPI Genitourinary Genitourinary: Reports systems reviewed and no addt'l complaints, except as documented Musculoskeletal Musculoskeletal: Reports as per HPI Integumentary Integumentary: Reports systems reviewed and no addt'l complaints, except as documented Neurologic Neurologic: Reports as per HPI Psychiatric Psychiatric: Reports systems reviewed and no addt'l complaints, except as documented Endocrine Endocrinology: Reports as per HPI Hematologic/Lymphatic Hematologic/Lymphatic: Reports systems reviewed and no addt'l complaints, except as documented Allergic/Immunologic Allergic/Immunologic: Reports systems reviewed and no addt'l complaints, except as documented Physical Exam Const alert and oriented x3 HEENT normocephalic Neck no JVD and no carotid bruits Chest Chest Narrative: Patient is has significant scoliosis and deformation of his thoracic cavity. Resp Resp Narrative: Decreased breath sounds on the right side and some scant crackles in the bases bilaterally. Auscultation: crackles bilateral base Cardio Cardio Narrative: Distant heart tones Rate: regular rate Rhythm: regular rhythm and other Other Details: Occasional extrasystole Heart Sounds: S1 normal and S2 normal; Negative for click, gallop or murmur GI soft to palpation Extremity no pedal edema Extremity Narrative: Decreased muscle tone in the lower extremities Neuro Neuro Narrative: Alert and oriented x 3 Psych mental status grossly normal Risk Stratification Risk Stratification Applicable: Yes Age >/= 65: Yes >/= 3 CAD Risk Factors (HTN, HLD, DM, family hx of CAD, or current smoker): No Aspirin Use in the Past 7 Days: No Severe Angina (>/= episodes in 24 hours): No EKG ST Changes >/= 0.5mm: No Positive Cardiac Marker: Yes YUDITH Risk Stratification Score: 2 YUDITH % Risk: 8% Risk Charges/Coding Visit Charges Inpatient E&M: 63384 Init Hosp L3 Objective Data Vital Signs: Vital Signs Temp Pulse Resp BP Pulse Ox O2 Del Method O2 Flow Rate 98.4 F 81 18 89/71 L 98 Nasal Cannula 4 07/22/24 15:20 07/22/24 15:20 07/22/24 15:20 07/22/24 15:20 07/22/24 15:20 07/22/24 15:47 07/22/24 15:47 Oxygen Flow Rate (L/min) 4 Oxygen Delivery Method Nasal Cannula Weight: 124 lb 8.979 oz Body Mass Index (BMI) 20.7 Lab / Micro Data Attestation: I reviewed the patient's lab results. 07/22/24 13:20 07/22/24 12:59 Labs: Laboratory Results - last 24 hr 07/22/24 12:59: WBC Cancelled, Corrected WBC Cancelled, RBC Cancelled, Hgb Cancelled, Hct Cancelled, MCV Cancelled, MCH Cancelled, MCHC Cancelled, RDW Std Deviation Cancelled, RDW Coeff of Larry Cancelled, Plt Count Cancelled, MPV Cancelled, Immature Gran % (Auto) Cancelled, Neut % (Auto) Cancelled, Lymph % (Auto) Cancelled, Mcdonough % (Auto) Cancelled, Eos % (Auto) Cancelled, Baso % (Auto) Cancelled, Absolute Neuts (auto) Cancelled, Absolute Lymphs (auto) Cancelled, Total Counted Cancelled, Neutrophils % (Manual) Cancelled, Band Neutrophils % Cancelled, Lymphocytes % (Manual) Cancelled, Monocytes % (Manual) Cancelled, Eosinophils % (Manual) Cancelled, Basophils % (Manual) Cancelled, Metamyelocytes % Cancelled, Myelocytes % Cancelled, Promyelocytes % Cancelled, Blast Cells % Cancelled, Plasma Cell % (Manual) Cancelled, Other Cells % Cancelled, Nucleated RBC % Cancelled, Nucleated RBCs/100 WBC Cancelled, Differential Comment Cancelled, Diff Path Review Cancelled, Hypersegmented Neuts Cancelled, Atypical Lymphocytes Cancelled, Reactive Lymphocytes Cancelled, Smudge Cells Cancelled, Toxic Granulation Cancelled, Toxic Vacuolation Cancelled, Dohle Bodies Cancelled, Alondra Rods Cancelled, Platelet Estimate Cancelled, Plt Morphology Comment Cancelled, RBC Morphology Cancelled 07/22/24 12:59: RBC Morphology Cancelled, Polychromasia Cancelled, Hypochromasia Cancelled, Basophilic Stippling Cancelled, Anisocytosis Cancelled, Microcytosis Cancelled, Macrocytosis Cancelled, Spherocytes Cancelled, Sickle Cells Cancelled, Target Cells Cancelled, Tear Drop Cells Cancelled, Ovalocytes Cancelled, Stomatocytes Cancelled, [place] Bodies Cancelled, [place] Cells Cancelled, Bite Cells Cancelled, Crenated Cell Cancelled, Acanthocytes (Spur) Cancelled, Rouleaux Cancelled, Schistocytes Cancelled, Sodium 141, Potassium 4.3, Chloride 96 L, Carbon Dioxide 33.1 H, Anion Gap 12, BUN 17, Creatinine 0.55 L, Estim Creat Clear Calc 63.90, Est GFR (MDRD) Non-Af 102, BUN/Creatinine Ratio 31.0 H, Glucose 114 H, Calcium 9.5, Troponin T High Sens 25 H 07/22/24 13:20: WBC 14.1 H, RBC 4.28 L, Hgb 12.9 L, Hct 40.3, MCV 94.2 H, MCH 30.1, MCHC 32.0, RDW Std Deviation 44.2 H, RDW Coeff of Larry 12.9, Plt Count 205, MPV 10.1, Immature Gran % (Auto) 0.700, Neut % (Auto) 85.4 H, Lymph % (Auto) 3.6 L, Mcdonough % (Auto) 9.6, Eos % (Auto) 0.3, Baso % (Auto) 0.4, Absolute Neuts (auto) 12.0 H, Absolute Lymphs (auto) 0.51 L, Nucleated RBC % 0 Rhythm Strip Rhythm Strip: Sinus Rhythm Rate: 80 Ectopy: PAC(s) Cardiology Labs/Tests 07/22/24 12:59: WBC Cancelled, Corrected WBC Cancelled, RBC Cancelled, Hgb Cancelled, Hct Cancelled, MCV Cancelled, MCH Cancelled, MCHC Cancelled, Plt Count Cancelled, MPV Cancelled, Immature Gran % (Auto) Cancelled, Neut % (Auto) Cancelled, Lymph % (Auto) Cancelled, Mcdonough % (Auto) Cancelled, Eos % (Auto) Cancelled, Baso % (Auto) Cancelled, Absolute Neuts (auto) Cancelled, Total Counted Cancelled, Neutrophils % (Manual) Cancelled, Band Neutrophils % Cancelled, Lymphocytes % (Manual) Cancelled, Monocytes % (Manual) Cancelled, Eosinophils % (Manual) Cancelled, Basophils % (Manual) Cancelled, Metamyelocytes % Cancelled, Myelocytes % Cancelled, Promyelocytes % Cancelled, Blast Cells % Cancelled, Plasma Cell % (Manual) Cancelled, Other Cells % Cancelled, Nucleated RBC % Cancelled, Sodium 141, Potassium 4.3, Chloride 96 L, Carbon Dioxide 33.1 H, Anion Gap 12, BUN 17, Creatinine 0.55 L, Est GFR (MDRD) Non-Af 102, BUN/Creatinine Ratio 31.0 H, Glucose 114 H, Calcium 9.5 07/22/24 13:20: WBC 14.1 H, RBC 4.28 L, Hgb 12.9 L, Hct 40.3, MCV 94.2 H, MCH 30.1, MCHC 32.0, Plt Count 205, MPV 10.1, Immature Gran % (Auto) 0.700, Neut % (Auto) 85.4 H, Lymph % (Auto) 3.6 L, Mcdonough % (Auto) 9.6, Eos % (Auto) 0.3, Baso % (Auto) 0.4, Absolute Neuts (auto) 12.0 H, Nucleated RBC % 0 Rhythm: EKG: ECHO: Stress Test: Cardiac Cath: PCI: CT Surgery: Holter monitor: EPS: PPM: CXR: Chest CT Scan: Radiography Diagnostic Testing: Radiology Impression Chest X-Ray 07/22/24 13:25 IMPRESSION: Stable examination. Reading Location: [facility] EKG Initial EKG: Attestation: I personally reviewed and interpreted this EKG as follows: (Heart rate was 177 bpm with a narrow complex QRS consistent with atrial fibrillation.)
--- NOTE | 2024-07-22 16:38 | CASEMGMT ---
Care Management Face to Face with patient for initial transition planning/care coordination assessment in the ED.? This sheet writer introduced self and role at [facility]. Patient alert and oriented. Patient willing to participate in assessment and is able to answer all questions appropriately.? Care providers, pharmacy, and demographics verified. Admitting Diagnosis:? dizziness and syncope Other diagnosis history: ?cancer, arthritis, back pain, CHF, hypertension PCP: belinda Specialists: santi gomez Preferred Pharmacy: [facility] Insurance: [employer] Prescription Benefit: yes Living Will/HPOA: ?yes, family to bring in LNOK: Living Arrangements: Lives with in one story, independent with ADLS and IADLS Transportation: drives DME: grab bars, shower bench, blood pressure cuff, pulse ox Oxygen :? 5 Lts continuous, has concentrator and portable.? Supplies through [employer] HHC: ?None SNF/Rehab: TCU Community Resources: ?None Behavioral Health History: ?Depression , takes Effexor Patient goals: Patient wishes to discharge home. Disposition Plan: admission to acute; RN CM/SW to follow for discharge planning needs that may arise. Claudine Condon, OLEOMARGARINE MAKER, ENGLISH TUTOR
[2024-07-22] MEDS: oxyCODONE 5 MG Tablet PO (18:14)
[2024-07-22] MEDS: Acetaminophen 325 MG Tablet 650 MG PO (18:15)
[2024-07-22] MEDS: Tamsulosin HCl 0.4 MG Capsule PO (20:32)
[2024-07-22] MEDS: DiphenhydrAMINE 25 MG Capsule PO (20:32)
[2024-07-22] MEDS: Losartan Potassium 50 MG Tablet PO (20:32)
--- NOTE | 2024-07-22 21:46 | CPS ---
Pt brought in NIV from home for night time use. It is set up and ready for use with O2 bled in @ 4L.
[2024-07-23] VITALS (8 sets, daily range): BP systolic 91–136; BP diastolic 46–86; PULSE 66–93; RESP 16–18; TEMP 36.6–37.1; O2SAT 94–99
[2024-07-23] MEDS: oxyCODONE 5 MG Tablet PO ×3 (03:24→22:18)
[2024-07-23 06:59] LABS: Absolute Lymphocyte Count 0.52 X10^3/uL (0.83-4.51); Absolute Neutrophil Count 7.2 X10^3/uL (2.0-7.7); Basophil# 0.06 X10^3/uL; Basophil% 0.7 % (0-1); Eosinophils% 1.1 % (0-5); Hemoglobin 12.2 g/dL (13.0-16.5); Lymphocyte # 0.52 X10^3/ul (0.83-4.51); Lymphocyte % 5.8 % (19-41); Mean Corp Hgb Conc 31.3 g/dL (32-36); Mean Corpuscular Hgb 30.1 pg (27.0-32.0); Mean Corpuscular Volume 96.3 fL (80-94); Mean Platelet Vol. 10.1 fl (6.2-12.0); Monocyte# 1.04 X10^3/uL; Monocyte% 11.7 % (0-10); NRBC Flagged by Analyzer 0 % (0-5); Neutrophil # 7.18 X10^3/uL (2.7-7.7); Neutrophil % 80.5 % (47-70); POSITIVE DIFFERENTIAL YES; Platelet Count 235 K/mm3 (150-450); RBC Distribution Width CV 12.9 % (11.6-14.6); RBC Distribution Width SD 45.8 fl (35.1-43.9); Red Blood Count 4.05 M/mm3 (4.6-6.2); White Blood Count 8.9 K/mm3 (4.4-11.0)
[2024-07-23 07:23] LABS: Anion Gap 11 (5-15); BUN 30 mg/dL (4-19); BUN/Creat Ratio 35.1 RATIO (10-20); Calcium,Total 8.7 mg/dL (7.6-11.0); Carbon Dioxide 31.4 mmol/L (21.0-32.0); Chloride 94 mmol/L (98-108); Creatinine, Serum 0.86 mg/dL (0.70-1.20); EST Glomerular Filtration Rate 89 (>60); Estimated Creatinine Clearance 57.49 ml/min (50-250); Glucose 113 mg/dL (70-99); Potassium 4.8 mmol/L (3.3-5.1); Sodium Level 137 mmol/L (133-145)
--- NOTE | 2024-07-23 07:48 | EKG12_ITS ---
Test Reason : ARRYTH Blood Pressure : */* mmHG Vent. Rate : 72 BPM Atrial Rate : 72 BPM P-R Int : 160 ms QRS Dur : 76 ms QT Int : 402 ms P-R-T Axes : 53 30 64 degrees QTcB Int : 440 ms Sinus rhythm with Premature atrial complexes Possible Left atrial enlargement Borderline ECG When compared with ECG of 22-Jul-2024 13:00, Previous ECG has undetermined rhythm, needs review Confirmed by Matt Machado ([id number]), supervising film or videotape editor ОЛЬГА MARQUEZ ([id number]) on 07/24/2024 7:53:10 AM Referred By: Confirmed By: Matt Machado
--- NOTE | 2024-07-23 08:18 | PCM.PN.CARD ---
Subjective Subjective Patient reports that he slept very well last evening. He is on his BiPAP machine. He did have 2 short episodes around 1930 and 1999 hrs. of SVT which appeared to be 8-10 beats. He did not have any symptoms. The patient's blood pressure remains low in the 95 systolic range he did receive his losartan tablet last evening. His losartan and amlodipine have now been placed on hold. He continues with sotalol 80 mg twice daily. We are awaiting EKG despond to check his QT interval. Objective Data Vital Signs: Vital Signs Temp Pulse Resp BP Pulse Ox O2 Del Method O2 Flow Rate 97.8 F 67 16 93/62 96 Nasal Cannula 4 07/23/24 06:00 07/23/24 06:00 07/23/24 06:00 07/23/24 06:00 07/23/24 06:00 07/23/24 06:00 07/23/24 06:00 Oxygen Flow Rate (L/min) 4 Oxygen Delivery Method Nasal Cannula Weight: 124 lb 8.979 oz Body Mass Index (BMI) 20.7 Intake & Output: Intake and Output for Last 24 Hours 07/21/24 07/22/24 07/23/24 23:59 23:59 23:59 Intake Total 440 / 540 100 / 100 Output Total 0 / 0 Balance 440 / 540 100 / 100 Lab / Micro Data Attestation: I reviewed the patient's lab results. 07/23/24 06:08 07/23/24 06:08 Labs: Laboratory Results - last 24 hr 07/22/24 12:59: WBC Cancelled, Corrected WBC Cancelled, RBC Cancelled, Hgb Cancelled, Hct Cancelled, MCV Cancelled, MCH Cancelled, MCHC Cancelled, RDW Std Deviation Cancelled, RDW Coeff of Larry Cancelled, Plt Count Cancelled, MPV Cancelled, Immature Gran % (Auto) Cancelled, Neut % (Auto) Cancelled, Lymph % (Auto) Cancelled, [place] % (Auto) Cancelled, Eos % (Auto) Cancelled, Baso % (Auto) Cancelled, Absolute Neuts (auto) Cancelled, Absolute Lymphs (auto) Cancelled, Total Counted Cancelled, Neutrophils % (Manual) Cancelled, Band Neutrophils % Cancelled, Lymphocytes % (Manual) Cancelled, Monocytes % (Manual) Cancelled, Eosinophils % (Manual) Cancelled, Basophils % (Manual) Cancelled, Metamyelocytes % Cancelled, Myelocytes % Cancelled, Promyelocytes % Cancelled, Blast Cells % Cancelled, Plasma Cell % (Manual) Cancelled, Other Cells % Cancelled, Nucleated RBC % Cancelled, Nucleated RBCs/100 WBC Cancelled, Differential Comment Cancelled, Diff Path Review Cancelled, Hypersegmented Neuts Cancelled, Atypical Lymphocytes Cancelled, Reactive Lymphocytes Cancelled, Smudge Cells Cancelled, Toxic Granulation Cancelled, Toxic Vacuolation Cancelled, Dohle Bodies Cancelled, Alondra Rods Cancelled, Platelet Estimate Cancelled, Plt Morphology Comment Cancelled, RBC Morphology Cancelled 07/22/24 12:59: RBC Morphology Cancelled, Polychromasia Cancelled, Hypochromasia Cancelled, Basophilic Stippling Cancelled, Anisocytosis Cancelled, Microcytosis Cancelled, Macrocytosis Cancelled, Spherocytes Cancelled, Sickle Cells Cancelled, Target Cells Cancelled, Tear Drop Cells Cancelled, Ovalocytes Cancelled, Stomatocytes Cancelled, Kaplan-Hazen Bodies Cancelled, Hayley Cells Cancelled, Bite Cells Cancelled, Crenated Cell Cancelled, Acanthocytes (Spur) Cancelled, Rouleaux Cancelled, Schistocytes Cancelled, Sodium 141, Potassium 4.3, Chloride 96 L, Carbon Dioxide 33.1 H, Anion Gap 12, BUN 17, Creatinine 0.55 L, Estim Creat Clear Calc 63.90, Est GFR (MDRD) Non-Af 102, BUN/Creatinine Ratio 31.0 H, Glucose 114 H, Calcium 9.5, Troponin T High Sens 25 H 07/22/24 13:20: WBC 14.1 H, RBC 4.28 L, Hgb 12.9 L, Hct 40.3, MCV 94.2 H, MCH 30.1, MCHC 32.0, RDW Std Deviation 44.2 H, RDW Coeff of Larry 12.9, Plt Count 205, MPV 10.1, Immature Gran % (Auto) 0.700, Neut % (Auto) 85.4 H, Lymph % (Auto) 3.6 L, [place] % (Auto) 9.6, Eos % (Auto) 0.3, Baso % (Auto) 0.4, Absolute Neuts (auto) 12.0 H, Absolute Lymphs (auto) 0.51 L, Nucleated RBC % 0 07/23/24 06:08: WBC 8.9, RBC 4.05 L, Hgb 12.2 L, Hct 39.0 L, MCV 96.3 H, MCH 30.1, MCHC 31.3 L, RDW Std Deviation 45.8 H, RDW Coeff of Larry 12.9, Plt Count 235, MPV 10.1, Immature Gran % (Auto) 0.200, Neut % (Auto) 80.5 H, Lymph % (Auto) 5.8 L, [place] % (Auto) 11.7 H, Eos % (Auto) 1.1, Baso % (Auto) 0.7, Absolute Neuts (auto) 7.2, Absolute Lymphs (auto) 0.52 L, Nucleated RBC % 0, Sodium 137, Potassium 4.8, Chloride 94 L, Carbon Dioxide 31.4, Anion Gap 11, BUN 30 H, Creatinine 0.86, Estim Creat Clear Calc 57.49, Est GFR (MDRD) Non-Af 89, BUN/Creatinine Ratio 35.1 H, Glucose 113 H, Calcium 8.7 Rhythm Strip Rhythm Strip: Sinus Rhythm Rate: 70 Ectopy: PAC(s) and - (2 short runs of SVT lasting 8-10 beats last evening.) Cardiology Labs/Tests 07/22/24 12:59: WBC Cancelled, Corrected WBC Cancelled, RBC Cancelled, Hgb Cancelled, Hct Cancelled, MCV Cancelled, MCH Cancelled, MCHC Cancelled, Plt Count Cancelled, MPV Cancelled, Immature Gran % (Auto) Cancelled, Neut % (Auto) Cancelled, Lymph % (Auto) Cancelled, [place] % (Auto) Cancelled, Eos % (Auto) Cancelled, Baso % (Auto) Cancelled, Absolute Neuts (auto) Cancelled, Total Counted Cancelled, Neutrophils % (Manual) Cancelled, Band Neutrophils % Cancelled, Lymphocytes % (Manual) Cancelled, Monocytes % (Manual) Cancelled, Eosinophils % (Manual) Cancelled, Basophils % (Manual) Cancelled, Metamyelocytes % Cancelled, Myelocytes % Cancelled, Promyelocytes % Cancelled, Blast Cells % Cancelled, Plasma Cell % (Manual) Cancelled, Other Cells % Cancelled, Nucleated RBC % Cancelled, Sodium 141, Potassium 4.3, Chloride 96 L, Carbon Dioxide 33.1 H, Anion Gap 12, BUN 17, Creatinine 0.55 L, Est GFR (MDRD) Non-Af 102, BUN/Creatinine Ratio 31.0 H, Glucose 114 H, Calcium 9.5 07/22/24 13:20: WBC 14.1 H, RBC 4.28 L, Hgb 12.9 L, Hct 40.3, MCV 94.2 H, MCH 30.1, MCHC 32.0, Plt Count 205, MPV 10.1, Immature Gran % (Auto) 0.700, Neut % (Auto) 85.4 H, Lymph % (Auto) 3.6 L, [place] % (Auto) 9.6, Eos % (Auto) 0.3, Baso % (Auto) 0.4, Absolute Neuts (auto) 12.0 H, Nucleated RBC % 0 07/23/24 06:08: WBC 8.9, RBC 4.05 L, Hgb 12.2 L, Hct 39.0 L, MCV 96.3 H, MCH 30.1, MCHC 31.3 L, Plt Count 235, MPV 10.1, Immature Gran % (Auto) 0.200, Neut % (Auto) 80.5 H, Lymph % (Auto) 5.8 L, [place] % (Auto) 11.7 H, Eos % (Auto) 1.1, Baso % (Auto) 0.7, Absolute Neuts (auto) 7.2, Nucleated RBC % 0, Sodium 137, Potassium 4.8, Chloride 94 L, Carbon Dioxide 31.4, Anion Gap 11, BUN 30 H, Creatinine 0.86, Est GFR (MDRD) Non-Af 89, BUN/Creatinine Ratio 35.1 H, Glucose 113 H, Calcium 8.7 Rhythm: EKG: ECHO: Stress Test: Cardiac Cath: PCI: CT Surgery: Holter monitor: EPS: PPM: CXR: Chest CT Scan: Radiography Diagnostic Testing: Radiology Impression Chest X-Ray 07/22/24 13:25 IMPRESSION: Stable examination. Reading Location: [facility] Physical Exam Const alert and oriented x3 HEENT normocephalic Eyes EOMs intact bilaterally Neck Neck Narrative: BiPAP machine in place Chest Chest Narrative: Significant scoliosis and thoracic deformity noted. Resp clear to auscultation bilaterally Cardio regular rate, regular rhythm, S1 normal heart sound, S2 normal heart sound, no murmurs, no rub and no gallops Cardio Narrative: Distant heart tones. 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 Extremity no pedal edema Psych mental status grossly normal Assessment & Plan Assessment/Plan (1) Paroxysmal atrial fibrillation: PLAN: Patient's had no recurrence of his paroxysmal atrial fibrillation since his initial dose of sotalol. EKG this morning is pending. Provide the QTc remains acceptable he will continue with sotalol 80 mg twice daily. From an antiarrhythmic loading perspective he should be able to be discharged tomorrow morning provided his blood pressure is stabilized. (2) Syncope, cardiogenic: PLAN: Patient's syncope may be multifactorial. He has lost significant muscle tone over the last several years related to his polio. He is now having to walk with crutches. His blood pressures been persistently low even avoiding some of his antihypertensives since admission. It raises the possibility that the paroxysmal atrial fibrillation may have been part of the reason of his syncope yesterday. I would recommend we continue to hold all of his antihypertensives as sotalol does have a mild antihypertensive effect. Patient should be cautiously ambulated with his crutches as tolerated. (3) History of hypertension: PLAN: Patient's blood pressure has been low his antihypertensives are on hold at this point in time. (4) Chronic respiratory failure with hypoxia and hypercapnia: PLAN: Patient is tolerating his BiPAP without incident. 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 PLAN: Plan 1. Continue to hold amlodipine and losartan. 2. Monitor blood pressure for rebound. 3. Continue with sotalol 80 mg twice daily as long as QT interval is acceptable. 4. The patient should be able to be discharged tomorrow morning provided his QT interval remains acceptable. This should be less than 450 ms. 5. Patient should follow-up in the [facility] office in 7 to 10 days with our advanced practitioner for an EKG and blood pressure heart rate monitoring. Charges/Coding Visit Charges Inpatient E&M: 69617 Subs Hosp L2
[2024-07-23] MEDS: Sotalol Hydrochloride 80 MG Tablet PO ×2 (09:01→22:19)
[2024-07-23] MEDS: Tamsulosin HCl 0.4 MG Capsule PO ×2 (09:01→22:20)
[2024-07-23] MEDS: Venlafaxine XR 75 MG Capsule PO (09:01)
[2024-07-23] MEDS: APIXABAN 5 MG TABLET PO ×2 (09:01→22:20)
[2024-07-23] MEDS: Cyanocobalamin 500 MCG Tablet PO (09:01)
--- NOTE | 2024-07-23 09:21 | PN.HOSP_ITS ---
Reason for Visit Reason for Visit: Diagnoses Primary central sleep apnea (07/22/24) Other supraventricular tachycardia (07/22/24) Paroxysmal atrial fibrillation (07/22/24) Chronic respiratory failure with hypoxia (07/22/24) Chronic respiratory failure with hypercapnia (07/22/24) Syncope and collapse (07/22/24) Personal history of other diseases of the circulatory system (07/22/24) Subjective Subjective Patient is a 79-year-old gentleman who presented with syncopal episode EKG did showed a narrow complex tachycardia. Patient was later found to be in A-fib with RVR converted to sinus rhythm with PACs admitted to monitored bed for further management Objective Data Objective Data Vital Signs: Vital Signs Temp Pulse Resp BP Pulse Ox O2 Del Method O2 Flow Rate 98.2 F 79 17 119/75 98 Nasal Cannula 4 07/23/24 08:57 07/23/24 08:57 07/23/24 08:57 07/23/24 08:57 07/23/24 08:57 07/23/24 08:57 07/23/24 08:57 Oxygen Flow Rate (L/min) 4 Oxygen Delivery Method Nasal Cannula Weight: 56.5 kg Body Mass Index (BMI) 20.7 Intake & Output: Intake and Output for Last 24 Hours 07/21/24 07/22/24 07/23/24 23:59 23:59 23:59 Intake Total 440 / 540 100 / 100 Output Total 0 / 0 Balance 440 / 540 100 / 100 Lab / Micro Data 07/23/24 06:08 07/23/24 06:08 Labs: Laboratory Results - last 24 hr 07/22/24 12:59: WBC Cancelled, Corrected WBC Cancelled, RBC Cancelled, Hgb Cancelled, Hct Cancelled, MCV Cancelled, MCH Cancelled, MCHC Cancelled, RDW Std Deviation Cancelled, RDW Coeff of Larry Cancelled, Plt Count Cancelled, MPV Cancelled, Immature Gran % (Auto) Cancelled, Neut % (Auto) Cancelled, Lymph % (Auto) Cancelled, [place] % (Auto) Cancelled, Eos % (Auto) Cancelled, Baso % (Auto) Cancelled, Absolute Neuts (auto) Cancelled, Absolute Lymphs (auto) Cancelled, Total Counted Cancelled, Neutrophils % (Manual) Cancelled, Band Neutrophils % Cancelled, Lymphocytes % (Manual) Cancelled, Monocytes % (Manual) Cancelled, Eosinophils % (Manual) Cancelled, Basophils % (Manual) Cancelled, Metamyelocytes % Cancelled, Myelocytes % Cancelled, Promyelocytes % Cancelled, Blast Cells % Cancelled, Plasma Cell % (Manual) Cancelled, Other Cells % Cancelled, Nucleated RBC % Cancelled, Nucleated RBCs/100 WBC Cancelled, Differential Comment Cancelled, Diff Path Review Cancelled, Hypersegmented Neuts Cancelled, Atypical Lymphocytes Cancelled, Reactive Lymphocytes Cancelled, Smudge Cells Cancelled, Toxic Granulation Cancelled, Toxic Vacuolation Cancelled, Dohle Bodies Cancelled, Alondra Rods Cancelled, Platelet Estimate Cancelled, Plt Morphology Comment Cancelled, RBC Morphology Cancelled 07/22/24 12:59: RBC Morphology Cancelled, Polychromasia Cancelled, Hypochromasia Cancelled, Basophilic Stippling Cancelled, Anisocytosis Cancelled, Microcytosis Cancelled, Macrocytosis Cancelled, Spherocytes Cancelled, Sickle Cells Cancelled, Target Cells Cancelled, Tear Drop Cells Cancelled, Ovalocytes Cancelled, Stomatocytes Cancelled, Kaplan-Mabscott Bodies Cancelled, Hayley Cells Cancelled, Bite Cells Cancelled, Crenated Cell Cancelled, Acanthocytes (Spur) Cancelled, Rouleaux Cancelled, Schistocytes Cancelled, Sodium 141, Potassium 4.3, Chloride 96 L, Carbon Dioxide 33.1 H, Anion Gap 12, BUN 17, Creatinine 0.55 L, Estim Creat Clear Calc 63.90, Est GFR (MDRD) Non-Af 102, BUN/Creatinine Ratio 31.0 H, Glucose 114 H, Calcium 9.5, Troponin T High Sens 25 H 07/22/24 13:20: WBC 14.1 H, RBC 4.28 L, Hgb 12.9 L, Hct 40.3, MCV 94.2 H, MCH 30.1, MCHC 32.0, RDW Std Deviation 44.2 H, RDW Coeff of Larry 12.9, Plt Count 205, MPV 10.1, Immature Gran % (Auto) 0.700, Neut % (Auto) 85.4 H, Lymph % (Auto) 3.6 L, [place] % (Auto) 9.6, Eos % (Auto) 0.3, Baso % (Auto) 0.4, Absolute Neuts (auto) 12.0 H, Absolute Lymphs (auto) 0.51 L, Nucleated RBC % 0 07/23/24 06:08: WBC 8.9, RBC 4.05 L, Hgb 12.2 L, Hct 39.0 L, MCV 96.3 H, MCH 30.1, MCHC 31.3 L, RDW Std Deviation 45.8 H, RDW Coeff of Larry 12.9, Plt Count 235, MPV 10.1, Immature Gran % (Auto) 0.200, Neut % (Auto) 80.5 H, Lymph % (Auto) 5.8 L, [place] % (Auto) 11.7 H, Eos % (Auto) 1.1, Baso % (Auto) 0.7, Absolute Neuts (auto) 7.2, Absolute Lymphs (auto) 0.52 L, Nucleated RBC % 0, Sodium 137, Potassium 4.8, Chloride 94 L, Carbon Dioxide 31.4, Anion Gap 11, BUN 30 H, Creatinine 0.86, Estim Creat Clear Calc 57.49, Est GFR (MDRD) Non-Af 89, B UN/Creatinine Ratio 35.1 H, Glucose 113 H, Calcium 8.7 Radiography Diagnostic Testing: Radiology Impression Chest X-Ray 07/22/24 13:25 IMPRESSION: Stable examination. Reading Location: [facility] Rhythm Strip Rhythm Strip: Sinus Rhythm Rate: 70 Ectopy: PAC(s) and - (2 short runs of SVT lasting 8-10 beats last evening.) Physical Exam Narrative GENERAL: cooperative HEENT: Atraumatic; normocephalic EYES; Anicteric, Normal Conjunctiva NECK; supple, normal thyroid, RESPIRATORY: Diminished to auscultation CARDIOVASCULAR: Regular S1 S2, GI: soft, normoactive bowel sounds, : No Renal angle tenderness; EXTREMITIES: No edema, no clubbing, MUSCULOSKELETAL: Dextroscoliosis NEURO: Awake; no lateralizing signs. SKIN: No Rash PSYCH; Flat affect Assessment & Plan Assessment/Plan (1) Syncope, cardiogenic: (2) Narrow complex tachycardia: PLAN: Plan Patient is a 79-year-old gentleman who presented with syncopal episode EKG did showed a narrow complex tachycardia. Patient was later found to be in A-fib with RVR converted to sinus rhythm with PACs admitted to monitored bed for further management 1. Paroxysmal A-fib with RVR ? Patient was started on antiarrhythmic?sotalol placed on telemetry with daily QT monitoring. Was also started on systemic anticoagulation with apixaban 2. Essential hypertension ? Patient antihypertensives held patient blood pressure was apparently on the low side on admission we will continue with monitoring and reintroduce when blood pressure allows 3. BPH with lower urinary obstructive symptoms - Patient treated with tamsulosin 4. 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 5. Depression ? Patient is on venlafaxine 6. Central sleep apnea ? Patient uses BiPAP at night 7. Chronic hypoxic and hypercapnic respiratory failure ? Patient is on continuous home oxygen during the day 8. DVT prophylaxis ? On enoxaparin Time spent in the patient's overall evaluation,decision-making process, review of diagnostic data, adjustment of management, discussion with other providers, nursing nursing and ancillary staff involved in patient's care documentation, 52 minutes Charges/Coding Visit Charges Inpatient E&M: 87862 [facility] Hosp L3
[2024-07-23] MEDS: Ensure Plus High Protein 120 ML LIQUID PO ×2 (14:58→18:38)
--- NOTE | 2024-07-23 17:00 | CASEMGMT ---
RN CM note: Therapy evals reviewed. Pt ambulated 200 ft w/therapy today w/use of crutches, which is pt's baseline d/t polio. No additional therapy recommended. RN CM to room. Pt sitting up in chair, @ bedside. Introduced self and role. Discussed dc planning. Pt wishes to get any new Rx's from [facility] retail pharmacy @ dc. He wears O2 @ 5 L/M continuously and bleeds-in via [employer]. can bring in portable O2 tank @ dc. Pt has a pulse ox @ home. Pt sees Dr Eron Monsivais, pulmonology as an OP. Pt qualifies for palliative referral per [facility] screening tool. Discussed palliative care w/pt and and information provided. Pt interested in a referral. Order received from Dr Michel and referral sent to [facility] [employer] [employer] via secure e-mail. Pt and deny having any further discharge needs/concerns at this time. Instructed to ask for CM if any needs arise. Francisco BARROS RN CM
[2024-07-23] MEDS: Acetaminophen 325 MG Tablet 650 MG PO (22:18)
[2024-07-23] MEDS: DiphenhydrAMINE 25 MG Capsule PO (22:19)
[2024-07-24] VITALS (8 sets, daily range): BP systolic 110–141; BP diastolic 64–95; PULSE 74–95; RESP 15–20; TEMP 36.4–37.1; O2SAT 88–99
--- NOTE | 2024-07-24 01:30 | NURSING ---
pt found on floor at approx 0125. denies loc. denies hitting head. denies syncopal episode. believes his crutch slipped on the floor. pt denies any injury or pain outside of baseline. assessment neg. no wounds, no change in mentation, no bruising or swelling noted. neuro assessment consistent with assessment completed prior to the fall. pt reminded to call for assistance to bathroom. bed exit turned on. md and hs notified. pt refused to have notified.
[2024-07-24 01:54] LABS: Bedside Glucose 122 mg/dL (74-106)
--- NOTE | 2024-07-24 01:58 | PCM.HOSP.N ---
Hospitalist Note Patient accidentally lost balance and slid to his bottom, no trauma, no pain, stable VS and BS.
--- NOTE | 2024-07-24 05:31 | EKG12_ITS ---
Test Reason : AM EKG Blood Pressure : */* mmHG Vent. Rate : 76 BPM Atrial Rate : 76 BPM P-R Int : 166 ms QRS Dur : 80 ms QT Int : 388 ms P-R-T Axes : 67 11 60 degrees QTcB Int : 436 ms Normal sinus rhythm Possible Left atrial enlargement Borderline ECG No previous ECGs available Confirmed by DENA HERNADNEZ, ALEXIS ([id number]), editorial clerk ОЛЬГА MARQUEZ ([id number]) on 07/25/2024 11:23:44 AM Referred By: LILLIANA Confirmed By: ALEXIS FERNANDES MD
--- NOTE | 2024-07-24 05:32 | NURSING ---
pt's o2 79-83% on 5L w/home bipap and asleep. RT notified. bipap o2 increase to 15L, pt now@93%
[2024-07-24 05:40] LABS: Absolute Lymphocyte Count 0.54 X10^3/uL (0.83-4.51); Absolute Neutrophil Count 5.7 X10^3/uL (2.0-7.7); Basophil# 0.05 X10^3/uL; Basophil% 0.7 % (0-1); Eosinophil# 0.23 X10^3/uL; Eosinophils% 3.1 % (0-5); Hematocrit 38.8 % (40-54); Hemoglobin 12.1 g/dL (13.0-16.5); Lymphocyte # 0.54 X10^3/ul (0.83-4.51); Lymphocyte % 7.2 % (19-41); Mean Corp Hgb Conc 31.2 g/dL (32-36); Mean Corpuscular Hgb 30.2 pg (27.0-32.0); Mean Corpuscular Volume 96.8 fL (80-94); Mean Platelet Vol. 9.8 fl (6.2-12.0); Monocyte# 0.84 X10^3/uL; Monocyte% 11.3 % (0-10); NRBC Flagged by Analyzer 0 % (0-5); Neutrophil # 5.74 X10^3/uL (2.7-7.7); POSITIVE DIFFERENTIAL YES; Platelet Count 201 K/mm3 (150-450); RBC Distribution Width CV 12.6 % (11.6-14.6); RBC Distribution Width SD 45.5 fl (35.1-43.9); Red Blood Count 4.01 M/mm3 (4.6-6.2); White Blood Count 7.5 K/mm3 (4.4-11.0)
[2024-07-24 06:05] LABS: Anion Gap 7 (5-15); BUN 38 mg/dL (4-19); Calcium,Total 9.4 mg/dL (7.6-11.0); Carbon Dioxide 36.3 mmol/L (21.0-32.0); Chloride 96 mmol/L (98-108); Creatinine, Serum 0.78 mg/dL (0.70-1.20); EST Glomerular Filtration Rate 92 (>60); Glucose 130 mg/dL (70-99); Magnesium 2.2 mg/dL (1.5-2.2); Sodium Level 139 mmol/L (133-145)
--- NOTE | 2024-07-24 08:57 | PCM.PN.CARD ---
Subjective Subjective Patient seen and evaluated. Appears to doing well. No complaints at this time. Objective Data Vital Signs: Vital Signs Temp Pulse Resp BP Pulse Ox O2 Del Method O2 Flow Rate 98.2 F 74 16 124/69 H 98 CPAP 8 07/24/24 05:12 07/24/24 05:12 07/24/24 05:12 07/24/24 05:12 07/24/24 08:00 07/24/24 08:00 07/24/24 08:00 Oxygen Flow Rate (L/min) 8 Oxygen Delivery Method CPAP Weight: 124 lb 8.979 oz Body Mass Index (BMI) 20.7 Intake & Output: Intake and Output for Last 24 Hours 07/22/24 07/23/24 07/24/24 23:59 23:59 23:59 Intake Total 440 / 540 1100 / 1100 400 / 400 Output Total 0 / 0 Balance 440 / 540 1100 / 1100 400 / 400 Lab / Micro Data 07/24/24 05:22 07/24/24 05:22 Labs: Laboratory Results - last 24 hr 07/24/24 01:32: POC Glucose 122 H 07/24/24 05:22: WBC 7.5, RBC 4.01 L, Hgb 12.1 L, Hct 38.8 L, MCV 96.8 H, MCH 30.2, MCHC 31.2 L, RDW Std Deviation 45.5 H, RDW Coeff of Larry 12.6, Plt Count 201, MPV 9.8, Immature Gran % (Auto) 0.700, Neut % (Auto) 77.0 H, Lymph % (Auto) 7.2 L, [place] % (Auto) 11.3 H, Eos % (Auto) 3.1, Baso % (Auto) 0.7, Absolute Neuts (auto) 5.7, Absolute Lymphs (auto) 0.54 L, Nucleated RBC % 0, Sodium 139, Potassium 5.0, Chloride 96 L, Carbon Dioxide 36.3 H, Anion Gap 7, BUN 38 H, Creatinine 0.78, Estim Creat Clear Calc 61.80, Est GFR (MDRD) Non-Af 92, BUN/Creatinine Ratio 49.0 H, Glucose 130 H, Calcium 9.4, Phosphorus 3.0, Magnesium 2.2 Rhythm Strip Rhythm Strip: Sinus Rhythm Rate: 70 Ectopy: PAC(s) and - (2 short runs of SVT lasting 8-10 beats last evening.) Cardiology Labs/Tests 07/24/24 05:22: WBC 7.5, RBC 4.01 L, Hgb 12.1 L, Hct 38.8 L, MCV 96.8 H, MCH 30.2, MCHC 31.2 L, Plt Count 201, MPV 9.8, Immature Gran % (Auto) 0.700, Neut % (Auto) 77.0 H, Lymph % (Auto) 7.2 L, [place] % (Auto) 11.3 H, Eos % (Auto) 3.1, Baso % (Auto) 0.7, Absolute Neuts (auto) 5.7, Nucleated RBC % 0, Sodium 139, Potassium 5.0, Chloride 96 L, Carbon Dioxide 36.3 H, Anion Gap 7, BUN 38 H, Creatinine 0.78, Est GFR (MDRD) Non-Af 92, BUN/Creatinine Ratio 49.0 H, Glucose 130 H, Calcium 9.4, Phosphorus 3.0, Magnesium 2.2 Rhythm: EKG: ECHO: Stress Test: Cardiac Cath: PCI: CT Surgery: Holter monitor: EPS: PPM: CXR: Chest CT Scan: Radiography Diagnostic Testing: Radiology Impression Echocardiogram 07/22/24 15:23 Interpretation Summary Normal LV size. Left ventricular systolic function is normal. The left ventricular ejection fraction is 55 %. Pulmonary artery systolic pressure is 35 mmHg. Contrast injection was performed. Ordering Physician: Johana Bryant Performed By: Clayton Hsieh RCS Physical Exam Const alert, oriented x3 and no apparent distress General Appearance: cooperative HEENT hearing grossly normal bilaterally Head and Scalp: atraumatic Eyes EOMs intact bilaterally Neck General: normal visual inspection Chest inspection of chest normal and palpation of chest normal Resp normal respiratory effort Auscultation: clear to auscultation bilaterally Cardio regular rate, regular rhythm, S1 normal heart sound and S2 normal heart sound Jugular Venous Distention: JVD GI normal to inspection, nondistended, normoactive bowel sounds Extremity normal capillary refill and no pedal edema Peripheral Pulses: Yes pulses 2+ throughout and femoral pulses present Skin no rashes or lesions noted Neuro oriented x3 and CN's II-XII intact bilaterally Psych Appearance: grossly normal and appropriate Assessment & Plan Assessment/Plan (1) Paroxysmal atrial fibrillation: PLAN: He does have a history of paroxysmal atrial fibrillation. He is maintaining sinus rhythm at this time. EKG done today demonstrated a corrected QT interval of 438 ms. The above is acceptable. He can continue home on his sotalol as previously prescribed and follow-up at the [facility] offices in 7 to 10 days. He will also continue his anticoagulation. (2) History of hypertension: PLAN: His blood pressure is under good control at this time. We will continue to hold his losartan and amlodipine. This can be added on as an outpatient. His ejection fraction was noted to be normal.
[2024-07-24] MEDS: Ensure Plus High Protein 120 ML LIQUID PO ×2 (09:35→14:11)
[2024-07-24] MEDS: Sotalol Hydrochloride 80 MG Tablet PO ×2 (09:36→21:27)
[2024-07-24] MEDS: Cyanocobalamin 500 MCG Tablet PO (09:36)
[2024-07-24] MEDS: APIXABAN 5 MG TABLET PO ×2 (09:36→21:28)
[2024-07-24] MEDS: Tamsulosin HCl 0.4 MG Capsule PO ×2 (09:36→21:28)
[2024-07-24] MEDS: Venlafaxine XR 75 MG Capsule PO (09:36)
--- NOTE | 2024-07-24 10:39 | DS.PCM_ITS ---
Providers Date of Admission: 07/22/24 Date of Discharge: 07/24/24 Primary Care Physician: Dr. Luis Medina MD Consultations 07/22/24 15:23 Consult: Cardiology Routine Consulting Provider: Matt Machado Reason for Consult: syncope, narrow complex v tach. EMERGENT Consult: No MD Notified: Yes Date Notified: 07/22/24 Time Notified: 14:29 Method of Notification: Text Reason For Visit: SYNCOPE, NARROW COMPLEX V TACH Diagnosis Discharge Diagnosis (1) Paroxysmal atrial fibrillation: Status: Acute Code(s): I48.0 - Paroxysmal atrial fibrillation (2) History of hypertension: Status: Acute Code(s): Z86.79 - Personal history of other diseases of the circulatory system Plan Patient is a 79-year-old gentleman who presented with syncopal episode EKG did showed a narrow complex tachycardia. Patient was later found to be in A-fib with RVR converted to sinus rhythm with PACs admitted to monitored bed for further management 1. Paroxysmal A-fib with RVR ? Patient was started on antiarrhythmic?sotalol placed on telemetry with daily QT monitoring. Was also started on systemic anticoagulation with apixaban ? 07/24/2024; patient did remain in sinus rhythm QTc at the time of discharge was 438. Plans for patient to follow-up with cardiology and primary care physician as 2. Essential hypertension ? Patient antihypertensives held patient blood pressure was apparently on the low side on admission we will continue with monitoring and reintroduce when blood pressure allows 3. BPH with lower urinary obstructive symptoms - Patient treated with tamsulosin 4. 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 5. Depression ? Patient is on venlafaxine 6. Central sleep apnea ? Patient uses BiPAP at night 7. Chronic hypoxic and hypercapnic respiratory failure ? Patient is on continuous home oxygen during the day 8. DVT prophylaxis ? On enoxaparin Time spent in the patient's overall evaluation,decision-making process, review of diagnostic data, adjustment of management, discussion with other providers, nursing nursing and ancillary staff involved in patient's care documentation, 36 minutes Medications at Discharge Home Medications tamsulosin 0.4 mg capsule 0.4 mg PO BID prostate 02/03/20 venlafaxine 75 mg capsule,extended release 24 hr 75 mg PO DAILY MOOD 05/31/22 cyanocobalamin (vitamin B-12) 500 mcg tablet 500 mcg PO DAILY supplement 07/10/24 diphenhydramine HCl 25 mg capsule (Allergy (diphenhydramine)) 25 mg PO QHS allergies 07/22/24 apixaban 5 mg tablet (Eliquis) 5 mg PO BID 60 days #120 tabs 07/24/24 sotalol 80 mg tablet 80 mg PO BID 60 days #120 tabs 07/24/24 Physical Exam Narrative GENERAL: cooperative HEENT: Atraumatic; normocephalic EYES; Anicteric, Normal Conjunctiva NECK; supple, normal thyroid, RESPIRATORY: Diminished to auscultation CARDIOVASCULAR: Regular S1 S2, GI: soft, normoactive bowel sounds, : No Renal angle tenderness; EXTREMITIES: No edema, no clubbing, MUSCULOSKELETAL: Dextroscoliosis NEURO: Awake; no lateralizing signs. SKIN: No Rash PSYCH; Flat affect Weight / BMI Weight Weight: 56.5 kg Body Mass Index (BMI) 20.7 ABG / Lab / Microbiology Data 07/24/24 05:22 07/24/24 05:22 Laboratory: Laboratory Results - last 24 hr 07/24/24 01:32: POC Glucose 122 H 07/24/24 05:22: WBC 7.5, RBC 4.01 L, Hgb 12.1 L, Hct 38.8 L, MCV 96.8 H, MCH 30.2, MCHC 31.2 L, RDW Std Deviation 45.5 H, RDW Coeff of Larry 12.6, Plt Count 201, MPV 9.8, Immature Gran % (Auto) 0.700, Neut % (Auto) 77.0 H, Lymph % (Auto) 7.2 L, [place] % (Auto) 11.3 H, Eos % (Auto) 3.1, Baso % (Auto) 0.7, Absolute Neuts (auto) 5.7, Absolute Lymphs (auto) 0.54 L, Nucleated RBC % 0, Sodium 139, Potassium 5.0, Chloride 96 L, Carbon Dioxide 36.3 H, Anion Gap 7, BUN 38 H, Creatinine 0.78, Estim Creat Clear Calc 61.80, Est GFR (MDRD) Non-Af 92, B UN/Creatinine Ratio 49.0 H, Glucose 130 H, Calcium 9.4, Phosphorus 3.0, Magnesium 2.2 Radiography Diagnostic Testing: Radiology Impression Echocardiogram 07/22/24 15:23 Interpretation Summary Normal LV size. Left ventricular systolic function is normal. The left ventricular ejection fraction is 55 %. Pulmonary artery systolic pressure is 35 mmHg. Contrast injection was performed. Ordering Physician: Johana Bryant Performed By: Clayton Hsieh RCS D/C Instructions Discharge Diet: No restrictions Discharge Activity: Return to Normal Activity Call your doctor if you observe: Fever of 101 or Higher, Shortness of breath, Fainting spells and Chest pain DC O2, CPAP, BIPAP Needs Home O2 Discharge instructions: Yes Type of respiratory needs?: Oxygen Oxygen frequency: Continuous Continuous oxygen liters per minute: 4 DC home with Oxygen: Yes Home O2 MD Review: I have reviewed the oxygen testing, and the patient qualifies for home oxygen equipment and portability. The patient is mobile in the home and the community. Meaningful Use Info Meaningful Use Meaningful Use Diagnoses (Choose all that apply): None applicable Ischemic Stroke Statin Dosing Therapy Reference: STATIN DOSE THERAPY REFERENCE: * Patients > 75 years receive moderate or high dose statin therapy. * Patients 75 years or YOUNGER should receive HIGH intensity statin dose unless contraindicated. You will be required to document reason for non-treatment if statin daily dose does not meet guidelines. HIGH DOSE STATIN THERAPY DAILY Atorvastatin > than or = to 40 mg Rosuvastatin > than or = to 20 mg Amlodipine + Atorvastatin > than or = to 2.5/40 mg Ezetimibe + Simvastatin 10/80 mg Simvastatin 80mg Discharge Plan Admission Admit Date/Time: 07/22/24 14:26 Attending Provider: Familia Michel Primary Care Provider: Luis Medina Consulting Providers: Matt Machado; Johana Bryant Discharge Orders/Prescriptions Prescriptions: New sotalol 80 mg Tablet 80 mg PO BID 60 Days Qty: 120 0RF Eliquis 5 mg Tablet 5 mg PO BID 60 Days Qty: 120 0RF Continued cyanocobalamin (vitamin B-12) 500 mcg tablet 500 mcg PO DAILY tamsulosin 0.4 MG capsule 0.4 mg PO BID venlafaxine 75 mg capsule,extended release 24hr 75 mg PO DAILY diphenhydramine HCl [Allergy (diphenhydramine)] 25 mg capsule 25 mg PO QHS Discontinued nifedipine 90 mg tablet extended release 90 mg PO QHS losartan 50 mg tablet 50 mg PO QHS Referrals / Follow Up: Luis Medina MD [Primary Care Provider] - Within 2 Weeks Matt Machado MD [Med Staff - Active Staff] - Within 2 Weeks Disposition Disposition (needs filled in before D/C Order can be placed): Home, Self Care Charges/Coding Visit Charges Inpatient E&M: 55575 Disch Hosp >30min
--- NOTE | 2024-07-24 12:20 | CASEMGMT ---
Addendum entered by Severiano Dee 07/24/24 13:23: Pt had an appt scheduled w/PCP, Dr Luis Medina for tomorrow morning. KRISHNA ABBOTT placed call to their office and appt cx'd. Addendum entered by Severiano Dee 07/24/24 13:11: Discharge has been cancelled. Original Note: KRISHNA ABBOTT NOTE: Discharge order is in. KRISHNA ABBOTT to room. Pt sitting up in chair in room. He is aware he is being discharged home today. He states is feeling tired and would like to sleep for a little while before going home, stating he is falling asleep in his chair. Fior KELLER, made aware. Staff will assist pt to lay down for awhile. Home o2 amb testing to be completed prior to dc. KRISHNA Childress, aware. Eliquis and Sotalol have been e-scribed to [facility] retail pharmacy. Call placed to Vianca in the pharmacy. Eliquis 30-day free-trial offer card will be applied. Pt made aware this is a [id number]-lifetime use card and to f/u with PCP or cardiology if refills are not affordable to discuss possible options. He voices understanding. Cost of Sotalol is $19.79. Pt made aware and states this is affordable. Pt would like meds delivered to delivered to his room. [facility] pharmacy made aware. Pt states feels that his strength is @ his baseline. He denies need of HHC, stating he is just feeling tired today. Pt denies having any other discharge needs or concerns. Francisco BARROS RN, CM
--- NOTE | 2024-07-24 14:00 | PHA.DC.MC.R ---
Pharmacy [facility] has performed discharge medication reconciliation and counseling for this patient. The patient's discharge medication list was reviewed for discrepancies and discrepancies were resolved. The patient was counseled on the following discharge medications and changes in medications for homegoing were reviewed. 1. ELIQUIS 2. SOTALOL 3. DC LOSARTAN, NIFEDIPINE The Reason for Use, instructions for use, and potential side effects were reviewed for all new medications. The patient's questions regarding all of their medications were answered. The patient was able to verbally demonstrate an understanding of their discharge medications. patient counselled by Moise Tate PharmD candidate Medications at Discharge Home Medications tamsulosin 0.4 mg capsule 0.4 mg PO BID prostate 02/03/20 venlafaxine 75 mg capsule,extended release 24 hr 75 mg PO DAILY MOOD 05/31/22 cyanocobalamin (vitamin B-12) 500 mcg tablet 500 mcg PO DAILY supplement 07/10/24 diphenhydramine HCl 25 mg capsule (Allergy (diphenhydramine)) 25 mg PO QHS allergies 07/22/24 apixaban 5 mg tablet (Eliquis) 5 mg PO BID 60 days #120 tabs 07/24/24 sotalol 80 mg tablet 80 mg PO BID 60 days #120 tabs 07/24/24
[2024-07-24] MEDS: Acetaminophen 325 MG Tablet 650 MG PO (14:23)
[2024-07-24] MEDS: oxyCODONE 5 MG Tablet PO (14:23)
--- NOTE | 2024-07-24 14:56 | PN.HOSP_ITS ---
Reason for Visit Reason for Visit: Diagnoses Primary central sleep apnea (07/22/24) Other supraventricular tachycardia (07/22/24) Paroxysmal atrial fibrillation (07/22/24) Chronic respiratory failure with hypoxia (07/22/24) Chronic respiratory failure with hypercapnia (07/22/24) Syncope and collapse (07/22/24) Personal history of other diseases of the circulatory system (07/22/24) Subjective Subjective Plan was for patient will be discharged home he however complained of not feeling well and significantly weak. Subsequently ordered urinalysis checks x- ray viral respiratory panel and SARS-CoV-2 assay patient discharged subsequently discontinued Objective Data Objective Data Vital Signs: Vital Signs Temp Pulse Resp BP Pulse Ox O2 Del Method O2 Flow Rate 98.2 F 78 15 141/64 H 99 Nasal Cannula 4 07/24/24 09:31 07/24/24 12:30 07/24/24 12:30 07/24/24 12:30 07/24/24 12:30 07/24/24 14:43 07/24/24 14:43 Oxygen Flow Rate (L/min) 4 Oxygen Delivery Method Nasal Cannula Weight: 56.5 kg Body Mass Index (BMI) 20.7 Intake & Output: Intake and Output for Last 24 Hours 07/22/24 07/23/24 07/24/24 23:59 23:59 23:59 Intake Total 440 / 540 1100 / 1100 800 / 800 Output Total 0 / 0 Balance 440 / 540 1100 / 1100 800 / 800 Lab / Micro Data 07/24/24 05:22 07/24/24 05:22 Labs: Laboratory Results - last 24 hr 07/24/24 01:32: POC Glucose 122 H 07/24/24 05:22: WBC 7.5, RBC 4.01 L, Hgb 12.1 L, Hct 38.8 L, MCV 96.8 H, MCH 30.2, MCHC 31.2 L, RDW Std Deviation 45.5 H, RDW Coeff of Larry 12.6, Plt Count 201, MPV 9.8, Immature Gran % (Auto) 0.700, Neut % (Auto) 77.0 H, Lymph % (Auto) 7.2 L, [place] % (Auto) 11.3 H, Eos % (Auto) 3.1, Baso % (Auto) 0.7, Absolute Neuts (auto) 5.7, Absolute Lymphs (auto) 0.54 L, Nucleated RBC % 0, Sodium 139, Potassium 5.0, Chloride 96 L, Carbon Dioxide 36.3 H, Anion Gap 7, BUN 38 H, Creatinine 0.78, Estim Creat Clear Calc 61.80, Est GFR (MDRD) Non-Af 92, B UN/Creatinine Ratio 49.0 H, Glucose 130 H, Calcium 9.4, Phosphorus 3.0, Magnesium 2.2 Radiography Diagnostic Testing: Radiology Impression Echocardiogram 07/22/24 15:23 Interpretation Summary Normal LV size. Left ventricular systolic function is normal. The left ventricular ejection fraction is 55 %. Pulmonary artery systolic pressure is 35 mmHg. Contrast injection was performed. Ordering Physician: Johana Bryant Performed By: Clayton Hsieh RCS Rhythm Strip Rhythm Strip: Sinus Rhythm Rate: 70 Ectopy: PAC(s) and - (2 short runs of SVT lasting 8-10 beats last evening.) Physical Exam Narrative GENERAL: cooperative HEENT: Atraumatic; normocephalic EYES; Anicteric, Normal Conjunctiva NECK; supple, normal thyroid, RESPIRATORY: Diminished to auscultation CARDIOVASCULAR: Regular S1 S2, GI: soft, normoactive bowel sounds, : No Renal angle tenderness; EXTREMITIES: No edema, no clubbing, MUSCULOSKELETAL: Dextroscoliosis NEURO: Awake; no lateralizing signs. SKIN: No Rash PSYCH; Flat affect Assessment & Plan Assessment/Plan (1) Paroxysmal atrial fibrillation: (2) History of hypertension: PLAN: Plan Patient is a 79-year-old gentleman who presented with syncopal episode EKG did showed a narrow complex tachycardia. Patient was later found to be in A-fib with RVR converted to sinus rhythm with PACs admitted to monitored bed for further management 1. Paroxysmal A-fib with RVR ? Patient was started on antiarrhythmic?sotalol placed on telemetry with daily QT monitoring. Was also started on systemic anticoagulation with apixaban ? 07/24/2024; patient did remain in sinus rhythm QTc at the time of discharge was 438. Plans for patient to follow-up with cardiology and primary care physician as 2. Essential hypertension ? Patient antihypertensives held patient blood pressure was apparently on the low side on admission we will continue with monitoring and reintroduce when blood pressure allows 3. BPH with lower urinary obstructive symptoms - Patient treated with tamsulosin 4. 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 5. Depression ? Patient is on venlafaxine 6. Central sleep apnea ? Patient uses BiPAP at night 7. Chronic hypoxic and hypercapnic respiratory failure ? Patient is on continuous home oxygen during the day 8. DVT prophylaxis ? On enoxaparin 9. Lethargy ? Ordered chest x-ray, urinalysis, viral respiratory panel as well as SARS-CoV-2 to rule out infectious etiology Time spent in the patient's overall evaluation,decision-making process, review of diagnostic data, adjustment of management, discussion with other providers, nursing nursing and ancillary staff involved in patient's care documentation, 36 minutes
--- NOTE | 2024-07-24 15:00 | RAD_ITS ---
PROCEDURE: CHEST 1 VIEW (PORTABLE) 07/24/2024 REASON FOR EXAM: SOB TECHNIQUE: Frontal view of the chest. COMPARISON: Chest radiograph 07/22/24. FINDINGS: Hardware: None Heart: Heart size is mildly enlarged.Calcific plaque of the aortic arch. Lungs: There is stable volume loss in the right hemithorax due to severe degree of dextroconvex scoliosis. Stable mild linear atelectasis at the lung bases slightly more prominent on the left side. Bones: Marked dextroconvex scoliosis. RAD/Chest 1 View (Portable) IMPRESSION: Stable examination. Reading Location: [id number]
--- NOTE | 2024-07-24 15:13 | CHAPLAIN ---
Type of Pastoral Visit _x__ Initial Visit ___ Follow-up Visit ___ On-call Visit ___ General Patient Visit ___ Spiritual Assessment ___ Family Conference ___ Bereavement ___ Rapid Response ___ Code Blue ___ Other (describe below) Pastoral Care Referral From _x__ Patient ___ Family ___ Nurse ___ Physician ___ Front Office Coordinator ___ Entry Level Sales Consultant ___ Other (describe below) Sacrament/Intervention _x__ Active listening ___ Anointing ___ Congregation ___ Bereavement ___ Communion ___ Rossi exploration ___ ___ Life review _x__ Prayer ___ Reconciliation ___ Sacrament of Sick _x__ Supportive presence ___ Wedding ___ Other (describe below) Pastoral Comments patient is sitting in a chair but fidgeting and acknowledging pain; spouse is with him in the room; pt describes his situation; pt cannot think of anything that would help him at this time; prayer is offered and accepted
[2024-07-24 18:48] LABS: Color, Urine Yellow (Yellow); Glucose, Dipstick Normal (Normal); Ketone-Dipstick Negative (Negative); Leukocyte Esterase-Dipstick 25 /ul (Negative); Nitrite-Dipstick Negative (Negative); Occult Blood-Urine 150 /ul (Negative); Protein-Dipstick 30 mg/dl (Negative); Urine Bilirubin Dipstick Negative (Negative); Urine Clarity Sl. Cloudy (Clear); Urine Urobilinogen Normal (Normal)
[2024-07-24 19:28] LABS: Red Blood Cells-Urine 50-100 SEEN /hpf (0-5)
[2024-07-24 19:29] LABS: Hyaline Cast 0-5 SEEN /lpf (0-5); Mucous, Urine 1+ /hpf (<or=2+); Squamous Epithelial Cells - UA 0-5 SEEN /hpf (0-5); White Blood Cells 0-5 SEEN /hpf (0-5)
[2024-07-24 19:31] LABS: Bacteria 1+ /hpf (None Seen)
[2024-07-24] MEDS: 0.9% Saline Lock 10 ML Syringe IV (21:28)
[2024-07-24] MEDS: DiphenhydrAMINE 25 MG Capsule PO (21:28)
[2024-07-25] MEDS: Acetaminophen 325 MG Tablet 650 MG PO ×2 (02:40→22:53)
[2024-07-25] MEDS: oxyCODONE 5 MG Tablet PO ×2 (02:40→22:53)
[2024-07-25 02:45] VITALS: BP 99/62; PULSE 81; RESP 20; TEMP 36.9; O2SAT 96
[2024-07-25 05:55] VITALS: BP 115/72; PULSE 73; RESP 16; TEMP 36.4; O2SAT 94
[2024-07-25 05:57] LABS: Absolute Lymphocyte Count 0.62 X10^3/uL (0.83-4.51); Absolute Neutrophil Count 4.5 X10^3/uL (2.0-7.7); Basophil# 0.02 X10^3/uL; Basophil% 0.3 % (0-1); Eosinophil# 0.15 X10^3/uL; Eosinophils% 2.4 % (0-5); Hemoglobin 11.3 g/dL (13.0-16.5); Lymphocyte # 0.62 X10^3/ul (0.83-4.51); Lymphocyte % 9.9 % (19-41); Mean Corp Hgb Conc 30.5 g/dL (32-36); Mean Corpuscular Volume 98.1 fL (80-94); Mean Platelet Vol. 9.8 fl (6.2-12.0); Monocyte# 0.98 X10^3/uL; Monocyte% 15.7 % (0-10); NRBC Flagged by Analyzer 0 % (0-5); Neutrophil # 4.45 X10^3/uL (2.7-7.7); Neutrophil % 71.2 % (47-70); Platelet Count 202 K/mm3 (150-450); RBC Distribution Width CV 12.6 % (11.6-14.6); RBC Distribution Width SD 45.5 fl (35.1-43.9); Red Blood Count 3.77 M/mm3 (4.6-6.2); White Blood Count 6.3 K/mm3 (4.4-11.0)
[2024-07-25 06:53] LABS: Anion Gap 5 (5-15); BUN 30 mg/dL (4-19); BUN/Creat Ratio 47.4 RATIO (10-20); Calcium,Total 9.4 mg/dL (7.6-11.0); Carbon Dioxide 39.9 mmol/L (21.0-32.0); Chloride 97 mmol/L (98-108); Creatinine, Serum 0.64 mg/dL (0.70-1.20); EST Glomerular Filtration Rate 98 (>60); Glucose 113 mg/dL (70-99); Sodium Level 142 mmol/L (133-145)
[2024-07-25 07:16] VITALS: O2SAT 97
--- NOTE | 2024-07-25 09:07 | PN.HOSP_ITS ---
Reason for Visit Reason for Visit: Diagnoses Primary central sleep apnea (07/22/24) Other supraventricular tachycardia (07/22/24) Paroxysmal atrial fibrillation (07/22/24) Chronic respiratory failure with hypoxia (07/22/24) Chronic respiratory failure with hypercapnia (07/22/24) Syncope and collapse (07/22/24) Personal history of other diseases of the circulatory system (07/22/24) Subjective Subjective Plan was for patient to be discharged the day prior he however complained of lethargy subsequent evaluation demonstrated presence of UTI started on ceftriaxone awaiting culture result Objective Data Objective Data Vital Signs: Vital Signs Temp Pulse Resp BP Pulse Ox O2 Del Method O2 Flow Rate 97.6 F L 73 16 115/72 97 Nasal Cannula 4 07/25/24 05:55 07/25/24 05:55 07/25/24 05:55 07/25/24 05:55 07/25/24 07:16 07/25/24 07:16 07/25/24 07:16 Oxygen Flow Rate (L/min) 4 Oxygen Delivery Method Nasal Cannula Weight: 56.5 kg Body Mass Index (BMI) 20.7 Intake & Output: Intake and Output for Last 24 Hours 07/23/24 07/24/24 07/25/24 23:59 23:59 23:59 Intake Total 1100 / 1100 1780 / 1780 240 / 240 Output Total 0 / 0 Balance 1100 / 1100 1780 / 1780 240 / 240 Lab / Micro Data 07/25/24 05:07 07/25/24 05:07 Labs: Laboratory Results - last 24 hr 07/24/24 18:30: Urine Color Yellow, Urine Clarity Sl. Cloudy, Urine pH 6.0, Ur Specific [place] 1.020, Urine Protein 30 H, Urine Glucose (UA) Normal, Urine Ketones Negative, Urine Occult Blood 150 H, Urine Nitrite Negative, Urine Bilirubin Negative, Urine Urobilinogen Normal, Ur Leukocyte Esterase 25 H, Urine RBC 50-100 SEEN, Urine WBC 0-5 SEEN, Ur Squamous Epith Cells 0-5 SEEN, Urine Bacteria 1+, Hyaline Casts 0-5 SEEN, Urine Mucus 1+ 07/25/24 05:07: WBC 6.3, RBC 3.77 L, Hgb 11.3 L, Hct 37.0 L, MCV 98.1 H, MCH 30.0, MCHC 30.5 L, RDW Std Deviation 45.5 H, RDW Coeff of Larry 12.6, Plt Count 202, MPV 9.8, Immature Gran % (Auto) 0.500, Neut % (Auto) 71.2 H, Lymph % (Auto) 9.9 L, [place] % (Auto) 15.7 H, Eos % (Auto) 2.4, Baso % (Auto) 0.3, Absolute Neuts (auto) 4.5, Absolute Lymphs (auto) 0.62 L, Nucleated RBC % 0, Sodium 142, Potassium 5.0, Chloride 97 L, Carbon Dioxide 39.9 H, Anion Gap 5, BUN 30 H, C reatinine 0.64 L, Estim Creat Clear Calc 61.80, Est GFR (MDRD) Non-Af 98, B UN/Creatinine Ratio 47.4 H, Glucose 113 H, Calcium 9.4 Micro: Microbiology 07/24/24 15:58 Mucosa - Nasopharyngeal Respiratory Panel (PCR) - Final 07/24/24 17:36 Mucosa - Nasopharyngeal Coronavirus COVID-19 PCR - Final Radiography Diagnostic Testing: Radiology Impression Chest X-Ray 07/24/24 15:00 IMPRESSION: Stable examination. Reading Location: [facility] Rhythm Strip Rhythm Strip: Sinus Rhythm Rate: 70 Ectopy: PAC(s) and - (2 short runs of SVT lasting 8-10 beats last evening.) Physical Exam Narrative GENERAL: cooperative HEENT: Atraumatic; normocephalic EYES; Anicteric, Normal Conjunctiva NECK; supple, normal thyroid, RESPIRATORY: Diminished to auscultation CARDIOVASCULAR: Regular S1 S2, GI: soft, normoactive bowel sounds, : No Renal angle tenderness; EXTREMITIES: No edema, no clubbing, MUSCULOSKELETAL: Dextroscoliosis NEURO: Awake; no lateralizing signs. SKIN: No Rash PSYCH; Flat affect Resp Resp Narrative: mildly diminished breath sounds bibasally, worse on the right side. no wheezes or crackles. On 4L of oxygen by nasal canula Cardio Cardio Narrative: episodic tachycardia Extremity Extremity Narrative: has scoliosis of the spine Assessment & Plan Assessment/Plan (1) Paroxysmal atrial fibrillation: (2) History of hypertension: PLAN: Plan Patient is a 79-year-old gentleman who presented with syncopal episode EKG did showed a narrow complex tachycardia. Patient was later found to be in A-fib with RVR converted to sinus rhythm with PACs admitted to monitored bed for further management 1. Paroxysmal A-fib with RVR ? Patient was started on antiarrhythmic?sotalol placed on telemetry with daily QT monitoring. Was also started on systemic anticoagulation with apixaban ? 07/24/2024; patient did remain in sinus rhythm QTc at the time of discharge was 438. Plans for patient to follow-up with cardiology and primary care physician as 2. Essential hypertension ? Patient antihypertensives held patient blood pressure was apparently on the low side on admission we will continue with monitoring and reintroduce when blood pressure allows 3. BPH with lower urinary obstructive symptoms - Patient treated with tamsulosin 4. 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 5. Depression ? Patient is on venlafaxine 6. Central sleep apnea ? Patient uses BiPAP at night 7. Chronic hypoxic and hypercapnic respiratory failure ? Patient is on continuous home oxygen during the day 8. DVT prophylaxis ? On enoxaparin 9. Acute cystitis ? Patient urinalysis obtained came back positive following workup for lethargy came back positive subsequently started on ceftriaxone awaiting culture result Time spent in the patient's overall evaluation,decision-making process, review of diagnostic data, adjustment of management, discussion with other providers, nursing nursing and ancillary staff involved in patient's care documentation, 36 minutes Charges/Coding Visit Charges Inpatient E&M: 40351 Subs Hosp L2
[2024-07-25] MEDS: APIXABAN 5 MG TABLET PO ×2 (10:38→22:53)
[2024-07-25] MEDS: Venlafaxine XR 75 MG Capsule PO (10:38)
[2024-07-25] MEDS: Tamsulosin HCl 0.4 MG Capsule PO ×2 (10:38→22:53)
[2024-07-25] MEDS: Sotalol Hydrochloride 80 MG Tablet PO ×2 (10:38→22:53)
[2024-07-25] MEDS: Cyanocobalamin 500 MCG Tablet PO (10:39)
[2024-07-25] MEDS: 0.9% Saline Lock 10 ML Syringe IV ×2 (10:40→22:54)
[2024-07-25] MEDS: Ceftriaxone 1 GM/50 ML BAG IV (10:54)
[2024-07-25] MEDS: 0.9% Normal Saline (100mL Bag) 100 ML 15 ML IV (10:55)
[2024-07-25 11:55] VITALS: BP 139/76; PULSE 86; RESP 18; TEMP 36.6; O2SAT 96
--- NOTE | 2024-07-25 16:31 | CASEMGMT ---
Addendum entered by Severiano Dee 07/25/24 16:43: KRISHNA ABBOTT spoke w/Meron @ [facility]. She is not sure if they will be able to accept pt. They will f/u with either L[employer] INDUSTRI[employer] SUPERVISOR CM, Kayla, on Sunday or dl Alexander dental assistant instructor on Sunday. Pt made aware. Original Note: KRISHNA ABBOTT NOTE: Pt states he is feeling weaker than usual and is not at his baseline physically. Discussed HHC and OP therapy & questions answered. Pt and both made aware of [facility]'s criteria of being homebound. Pt states he will be homebound for awhile, stating even for the past couple weeks before coming to the hospital he has not been getting around as well and is feeling even more weak today. Pt asked for KRISHNA ABBOTT to call his to discuss this w/her as well. KRISHNA ABBOTT call while in the room w/pt. Pt and both feel pt would benefit from therapy and would like C. Pt and would like [facility] and decline wanting list of other HHC options unless [facility] unable to accept him. Call placed to Meron @ [facility] and referral made. She was made aware anticipate pt will be medically ready to discharge home tomorrow. Francisco BARROS RN, CM
[2024-07-25 16:40] VITALS: BP 134/74; PULSE 76; RESP 16; TEMP 36.9; O2SAT 99
[2024-07-25 22:45] VITALS: BP 128/90; PULSE 87; RESP 16; TEMP 36.9; O2SAT 97
[2024-07-25] MEDS: DiphenhydrAMINE 25 MG Capsule PO (22:52)
[2024-07-26] VITALS (8 sets, daily range): BP systolic 117–151; BP diastolic 83–94; PULSE 72–86; RESP 14–20; TEMP 36.5–36.9; O2SAT 95–98
[2024-07-26 06:37] LABS: NRBC Flagged by Analyzer 0 % (0-5)
[2024-07-26 07:09] LABS: Anion Gap 8 (5-15); BUN 21 mg/dL (4-19); BUN/Creat Ratio 33.4 RATIO (10-20); Calcium,Total 9.8 mg/dL (7.6-11.0); Carbon Dioxide 41.2 mmol/L (21.0-32.0); Chloride 92 mmol/L (98-108); Creatinine, Serum 0.64 mg/dL (0.70-1.20); EST Glomerular Filtration Rate 98 (>60); Glucose 101 mg/dL (70-99); Potassium 4.7 mmol/L (3.3-5.1); Sodium Level 141 mmol/L (133-145)
--- NOTE | 2024-07-26 07:50 | PN.HOSP_ITS ---
Reason for Visit Reason for Visit: Diagnoses Primary central sleep apnea (07/22/24) Other supraventricular tachycardia (07/22/24) Paroxysmal atrial fibrillation (07/22/24) Chronic respiratory failure with hypoxia (07/22/24) Chronic respiratory failure with hypercapnia (07/22/24) Syncope and collapse (07/22/24) Personal history of other diseases of the circulatory system (07/22/24) Subjective Subjective Patient seen complaining of shortness of breath and asking for breathing treatment. Ordered chest x-ray for subsequent eval. Objective Data Objective Data Vital Signs: Vital Signs Temp Pulse Resp BP Pulse Ox O2 Del Method O2 Flow Rate 97.7 F L 73 20 H 137/94 H 95 CPAP 4 07/26/24 04:30 07/26/24 04:30 07/26/24 04:30 07/26/24 04:30 07/26/24 04:30 07/26/24 04:36 07/25/24 23:02 Oxygen Flow Rate (L/min) 4 Oxygen Delivery Method CPAP Weight: 56.5 kg Body Mass Index (BMI) 20.7 Intake & Output: Intake and Output for Last 24 Hours 07/24/24 07/25/24 07/26/24 23:59 23:59 23:59 Intake Total 1780 / 1780 1635.25 / 1635.25 0 / 0 Output Total 3 / 3 Balance 1780 / 1780 1632.25 / 1632.25 0 / 0 Lab / Micro Data 07/26/24 05:00 07/26/24 05:00 Labs: Laboratory Results - last 24 hr 07/26/24 05:00: WBC 4.2 L, RBC 5.28, Hgb 16.2, Hct 50.6, MCV 95.8 H, MCH 30.7, MCHC 32.0, RDW Std Deviation 44.1 H, RDW Coeff of Larry 12.3, Plt Count 151, MPV 10.6, Immature Gran % (Auto) 0.500, Neut % (Auto) 71.4 H, Lymph % (Auto) 12.3 L, [place] % (Auto) 11.8 H, Eos % (Auto) 3.1, Baso % (Auto) 0.9, Absolute Neuts (auto) 3.0, Absolute Lymphs (auto) 0.52 L, Nucleated RBC % 0, Sodium 141, Potassium 4.7, Chloride 92 L, Carbon Dioxide 41.2 H, Anion Gap 8, BUN 21 H, Creatinine 0.64 L, Estim Creat Clear Calc 61.80, Est GFR (MDRD) Non-Af 98, BUN/Creatinine Ratio 33.4 H, Glucose 101 H, Calcium 9.8 Micro: Microbiology 07/24/24 15:58 Mucosa - Nasopharyngeal Respiratory Panel (PCR) - Final 07/24/24 17:36 Mucosa - Nasopharyngeal Coronavirus COVID-19 PCR - Final Rhythm Strip Rhythm Strip: Sinus Rhythm Rate: 70 Ectopy: PAC(s) and - (2 short runs of SVT lasting 8-10 beats last evening.) Physical Exam Narrative GENERAL: cooperative HEENT: Atraumatic; normocephalic EYES; Anicteric, Normal Conjunctiva NECK; supple, normal thyroid, RESPIRATORY: Diminished to auscultation CARDIOVASCULAR: Regular S1 S2, GI: soft, normoactive bowel sounds, : No Renal angle tenderness; EXTREMITIES: No edema, no clubbing, MUSCULOSKELETAL: Dextroscoliosis NEURO: Awake; no lateralizing signs. SKIN: No Rash PSYCH; Flat affect Assessment & Plan Assessment/Plan (1) Paroxysmal atrial fibrillation: (2) History of hypertension: PLAN: Plan Patient is a 79-year-old gentleman who presented with syncopal episode EKG did showed a narrow complex tachycardia. Patient was later found to be in A-fib with RVR converted to sinus rhythm with PACs admitted to monitored bed for further management 1. Paroxysmal A-fib with RVR ? Patient was started on antiarrhythmic?sotalol placed on telemetry with daily QT monitoring. Was also started on systemic anticoagulation with apixaban ? 07/24/2024; patient did remain in sinus rhythm QTc at the time of discharge was 438. Plans for patient to follow-up with cardiology and primary care physician as 2. Essential hypertension ? Patient antihypertensives held patient blood pressure was apparently on the low side on admission we will continue with monitoring and reintroduce when blood pressure allows 3. BPH with lower urinary obstructive symptoms - Patient treated with tamsulosin 4. 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 5. Depression ? Patient is on venlafaxine 6. Central sleep apnea ? Patient uses BiPAP at night 7. Chronic hypoxic and hypercapnic respiratory failure ? Patient is on continuous home oxygen during the day 8. DVT prophylaxis ? On enoxaparin 9. Acute cystitis ? Patient urinalysis obtained came back positive following workup for lethargy came back positive subsequently started on ceftriaxone awaiting culture result ? 07/26/2024; urine cultures pending 10. Acute dyspnea ? Patient treated symptomatically with albuterol as needed ordered chest x-ray for subsequent eval Time spent in the patient's overall evaluation,decision-making process, review of diagnostic data, adjustment of management, discussion with other providers, nursing nursing and ancillary staff involved in patient's care documentation, 36 minutes Charges/Coding Visit Charges Inpatient E&M: 40040 Subs Hosp L2
[2024-07-26] MEDS: 0.9% Saline Lock 10 ML Syringe IV ×3 (09:03→20:30)
[2024-07-26] MEDS: Ceftriaxone 1 GM/50 ML BAG IV (09:03)
[2024-07-26] MEDS: Sotalol Hydrochloride 80 MG Tablet PO ×2 (09:05→21:55)
[2024-07-26] MEDS: Tamsulosin HCl 0.4 MG Capsule PO ×2 (09:05→21:55)
[2024-07-26] MEDS: Venlafaxine XR 75 MG Capsule PO (09:06)
[2024-07-26] MEDS: Cyanocobalamin 500 MCG Tablet PO (09:06)
[2024-07-26] MEDS: APIXABAN 5 MG TABLET PO ×2 (09:07→21:55)
[2024-07-26 09:18] LABS: White Blood Count 5.6 K/mm3 (4.4-11.0)
[2024-07-26 09:19] LABS: Hematocrit 40.4 % (40-54); Hemoglobin 12.6 g/dL (13.0-16.5); Mean Corpuscular Hgb 29.9 pg (27.0-32.0); Red Blood Count 4.21 M/mm3 (4.6-6.2)
[2024-07-26 09:20] LABS: Mean Corp Hgb Conc 31.2 g/dL (32-36); Mean Platelet Vol. 10.3 fl (6.2-12.0); POSITIVE DIFFERENTIAL NO; Platelet Count 225 K/mm3 (150-450); RBC Distribution Width CV 12.4 % (11.6-14.6); RBC Distribution Width SD 43.5 fl (35.1-43.9)
[2024-07-26 09:21] LABS: Basophil% 1.2 % (0-1); Eosinophils% 2.9 % (0-5); Lymphocyte % 12.8 % (19-41); Monocyte% 14.4 % (0-10); Neutrophil % 68.3 % (47-70)
[2024-07-26 09:22] LABS: Absolute Lymphocyte Count 0.72 X10^3/uL (0.83-4.51); Absolute Neutrophil Count 3.8 X10^3/uL (2.0-7.7); Basophil# 0.07 X10^3/uL; Eosinophil# 0.16 X10^3/uL; Lymphocyte # 0.72 X10^3/ul (0.83-4.51); Monocyte# 0.81 X10^3/uL; Neutrophil # 3.83 X10^3/uL (2.7-7.7)
[2024-07-26] MEDS: Albuterol 2.5 MG/3 ML VIAL.NEB. INHALATION (09:33)
--- NOTE | 2024-07-26 11:40 | RAD_ITS ---
PROCEDURE: CHEST 1 VIEW (PORTABLE) 07/26/2024 REASON FOR EXAM: DYSPNEA TECHNIQUE: Frontal view of the chest. COMPARISON: 07/24/2024 chest radiograph FINDINGS: Hardware: None Heart: Upper limits normal size. Lungs: Diffuse haziness without focal airspace consolidation Bones: Scoliosis and deformity of the thoracic cage limits sensitivity of the exam Other: RAD/Chest 1 View (Portable) IMPRESSION: Possible pneumonia manifested as diffuse haziness without focal airspace consol idation Reading [facility]
--- NOTE | 2024-07-26 12:05 | CT_ITS ---
PROCEDURE: CT CHEST, ABD, PEL W/CONTRAST 07/26/2024 REASON FOR EXAM: 79 yo M, PMH restrictive lung disease, LEFT FLANK PAIN TECHNIQUE: Chest, abdomen and pelvis CT with intravenous contrast. Coronal and Sagittal reconstruction series were provided. One or more dose reduction techniques were used (e.g., Automated exposure control, adjustment of the mA and/or kV according to patient size, use of iterative reconstruction technique. PATIENT PREPARATION: Per protocol ORAL CONTRAST TYPE: None. CONTRAST: Isovue 370 VOLUME: 100mL RADIATION DOSE SUMMARY: CTDlvol: 60 mGy DLP: 1400 mGycm COMPARISON: CTA chest 05/31/2022 FINDINGS: CT CHEST: Hardware: None. Lymph nodes: No axillary, mediastinal or hilar lymphadenopathy. Heart and Vasculature: The heart is normal in size without pericardial effusion. Minimal coronary artery calcifications. 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 Aberrant right subclavian artery. Lungs and Airways: The central airways are patent. Bibasilar atelectasis/scarring. Mild consolidation along the right major fissure and within the right upper lobe, likely secondary to severe chest deformity. No pleural effusion or pneumothorax. Bones: Stable severe deformity of the chest wall due to marked dextroscoliosis of the thoracic spine. CT ABDOMEN/PELVIS: Liver: The liver is normal in size without obvious hepatic mass. The major portal veins are patent. No intrahepatic biliary ductal dilation. Mild extrahepatic biliary ductal dilation. Gallbladder: No radiopaque stones within the decompressed gallbladder. Spleen: Unremarkable. Pancreas: Unremarkable. Adrenals: No adrenal mass. Kidneys: Left mid pole indeterminate renal lesion measuring 1.8 x 1.7 cm (series 3, image 38). No hydronephrosis or nephrolithiasis. Bladder: Distended with small diverticula along the bladder dome. Reproductive Organs: Enlarged prostate with brachytherapy seeds. Bowel: The bowel loops are normal in caliber. No ascites or pneumoperitoneum. Normal appendix. Moderate distal colonic diverticulosis. Lymph nodes: No suspicious lymphadenopathy. Vasculature: Mild calcific plaque of the aortoiliac vessels. Bones: There is reciprocal leftward curvature of the upper lumbar spine. Thoracolumbar spondylosis. Prior ORIF of the right femur. Sclerotic lesion within the superior aspect of the right iliac bone, likely benign. Diffuse osseous demineralization. CT/CT Chest, Abd, Pel w/Contrast IMPRESSION: CT chest: 1. No acute thoracic abnormality. 2. Stable chronic findings as described. CT abdomen pelvis: 1. No acute abdominopelvic finding. 2. Indeterminate left renal lesion. Nonemergent, outpatient CT abdomen (renal protocol) is recommended for further evaluation if not recently performed. Reading Location: [id number]
[2024-07-26] MEDS: oxyCODONE 5 MG Tablet PO (20:30)
[2024-07-26] MEDS: Acetaminophen 325 MG Tablet 650 MG PO (20:30)
[2024-07-26] MEDS: DiphenhydrAMINE 25 MG Capsule PO (21:55)
[2024-07-27] VITALS (7 sets, daily range): BP systolic 118–163; BP diastolic 74–100; PULSE 62–92; RESP 14–18; TEMP 36.1–36.6; O2SAT 92–100
--- NOTE | 2024-07-27 08:57 | PCM.PN.HOSP ---
Reason for Visit Reason for Visit: Diagnoses Primary central sleep apnea (07/22/24) Other supraventricular tachycardia (07/22/24) Paroxysmal atrial fibrillation (07/22/24) Chronic respiratory failure with hypoxia (07/22/24) Chronic respiratory failure with hypercapnia (07/22/24) Syncope and collapse (07/22/24) Personal history of other diseases of the circulatory system (07/22/24) Subjective Subjective Patient seen complains of being fatigued this a.m. He also did complain of left flank pain the day prior, CT of the abdomen and pelvis obtained did show Left mid pole indeterminate renal lesion measuring 1.8 x 1.7 cm . No hydronephrosis or nephrolithiasis.. Patient urine culture still pending Objective Data Objective Data Vital Signs: Vital Signs Temp Pulse Resp BP Pulse Ox O2 Del Method O2 Flow Rate 97.9 F 76 16 118/74 92 Nasal Cannula 4 07/27/24 02:25 07/27/24 05:16 07/27/24 02:25 07/27/24 02:25 07/27/24 02:25 07/27/24 02:25 07/27/24 02:25 Oxygen Flow Rate (L/min) 4 Oxygen Delivery Method Nasal Cannula Weight: 56.5 kg Body Mass Index (BMI) 20.7 Intake & Output: Intake and Output for Last 24 Hours 07/25/24 07/26/24 07/27/24 23:59 23:59 23:59 Intake Total 1635.25 / 1635.25 920.5 / 920.5 300 / 300 Output Total / 3 / Balance 1632.25 / 1632.25 917.5 / 917.5 300 / 300 Lab / Micro Data 07/26/24 05:00 07/26/24 05:00 Labs: Laboratory Results - last 24 hr 07/26/24 05:00: WBC 5.6, RBC 4.21 L, Hgb 12.6 L, Hct 40.4, MCV 96.0 H, MCH 29.9, MCHC 31.2 L, RDW Std Deviation 43.5, RDW Coeff of Larry 12.4, Plt Count 225, MPV 10.3, Immature Gran % (Auto) 0.400, Neut % (Auto) 68.3, Lymph % (Auto) 12.8 L, [place] % (Auto) 14.4 H, Eos % (Auto) 2.9, Baso % (Auto) 1.2 H, Absolute Neuts (auto) 3.8, Absolute Lymphs (auto) 0.72 L Micro: Microbiology 07/24/24 15:58 Mucosa - Nasopharyngeal Respiratory Panel (PCR) - Final 07/24/24 17:36 Mucosa - Nasopharyngeal Coronavirus COVID-19 PCR - Final Radiography Diagnostic Testing: Radiology Impression Chest X-Ray 07/26/24 11:40 IMPRESSION: Possible pneumonia manifested as diffuse haziness without focal airspace consolidation Reading [facility] Chest/Abdomen/Pelvis CT 07/26/24 12:05 IMPRESSION: CT chest: 1. No acute thoracic abnormality. 2. Stable chronic findings as described. CT abdomen pelvis: 1. No acute abdominopelvic finding. 2. Indeterminate left renal lesion. Nonemergent, outpatient CT abdomen (renal protocol) is recommended for further evaluation if not recently performed. Reading Location: [facility] Rhythm Strip Rhythm Strip: Sinus Rhythm Rate: 70 Ectopy: PAC(s) and - (2 short runs of SVT lasting 8-10 beats last evening.) Physical Exam Narrative GENERAL: cooperative HEENT: Atraumatic; normocephalic EYES; Anicteric, Normal Conjunctiva NECK; supple, normal thyroid, RESPIRATORY: Diminished to auscultation CARDIOVASCULAR: Regular S1 S2, GI: soft, normoactive bowel sounds, : No Renal angle tenderness; EXTREMITIES: No edema, no clubbing, MUSCULOSKELETAL: Dextroscoliosis NEURO: Awake; no lateralizing signs. SKIN: No Rash PSYCH; Flat affect Assessment & Plan Assessment/Plan (1) Paroxysmal atrial fibrillation: (2) History of hypertension: PLAN: Plan Patient is a 79-year-old gentleman who presented with syncopal episode EKG did showed a narrow complex tachycardia. Patient was later found to be in A-fib with RVR converted to sinus rhythm with PACs admitted to monitored bed for further management 1. Paroxysmal A-fib with RVR ? Patient was started on antiarrhythmic?sotalol placed on telemetry with daily QT monitoring. Was also started on systemic anticoagulation with apixaban ? 07/24/2024; patient did remain in sinus rhythm QTc at the time of discharge was 438. Plans for patient to follow-up with cardiology and primary care physician as outpatient 2. Essential hypertension ? Patient antihypertensives held patient blood pressure was apparently on the low side on admission we will continue with monitoring and reintroduce when blood pressure allows 3. BPH with lower urinary obstructive symptoms - Patient treated with tamsulosin 4. 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 5. Depression ? Patient is on venlafaxine 6. Central sleep apnea ? Patient uses BiPAP at night 7. Chronic hypoxic and hypercapnic respiratory failure ? Patient is on continuous home oxygen during the day 8. DVT prophylaxis ? On enoxaparin 9. Acute cystitis ? Patient urinalysis obtained came back positive following workup for lethargy came back positive subsequently started on ceftriaxone awaiting culture result ? 07/26/2024; urine cultures pending - 07/27/2024; Patient urine culture still pending 10. Acute dyspnea ? Patient treated symptomatically with albuterol as needed ordered chest x-ray for subsequent eval ? Checks x-ray was questionable for pneumonia patient is already on antibiotic therapy 11. Left flank pain Patient did complain of left flank pain. CT of the abdomen and pelvis obtained did show Left mid pole indeterminate renal lesion measuring 1.8 x 1.7 cm . No hydronephrosis or nephrolithiasis. Plan is for patient to undergo subsequent outpatient evaluation with a nonemergent CT renal protocol Time spent in the patient's overall evaluation,decision-making process, review of diagnostic data, adjustment of management, discussion with other providers, nursing nursing and ancillary staff involved in patient's care documentation, 36 minutes Charges/Coding Visit Charges Inpatient E&M: 42400 Subs Hosp L2
[2024-07-27] MEDS: Cyanocobalamin 500 MCG Tablet PO (08:59)
[2024-07-27] MEDS: Ceftriaxone 1 GM/50 ML BAG IV (08:59)
[2024-07-27] MEDS: Sotalol Hydrochloride 80 MG Tablet PO ×2 (09:00→21:11)
[2024-07-27] MEDS: Tamsulosin HCl 0.4 MG Capsule PO ×2 (09:00→21:11)
[2024-07-27] MEDS: Venlafaxine XR 75 MG Capsule PO (09:00)
[2024-07-27] MEDS: APIXABAN 5 MG TABLET PO ×2 (09:01→21:11)
[2024-07-27] MEDS: oxyCODONE 5 MG Tablet PO ×2 (15:43→22:13)
[2024-07-27] MEDS: Acetaminophen 325 MG Tablet 650 MG PO ×2 (15:46→22:13)
[2024-07-27] MEDS: DiphenhydrAMINE 25 MG Capsule PO (21:11)
--- NOTE | 2024-07-28 01:48 | CPS ---
patient wears 5L oxygen bled in through ASV machine HS
[2024-07-28 03:20] VITALS: BP 127/60; PULSE 78; RESP 18; TEMP 36.1; O2SAT 96
[2024-07-28 08:10] VITALS: O2SAT 99
[2024-07-28 08:33] VITALS: BP 150/84; PULSE 80; RESP 18; TEMP 36.9; O2SAT 100
[2024-07-28] MEDS: Ensure Plus High Protein 120 ML LIQUID PO (08:44)
[2024-07-28] MEDS: 0.9% Saline Lock 10 ML Syringe IV (08:44)
[2024-07-28] MEDS: Tamsulosin HCl 0.4 MG Capsule PO (08:45)
[2024-07-28] MEDS: Venlafaxine XR 75 MG Capsule PO (08:45)
[2024-07-28] MEDS: Ceftriaxone 1 GM/50 ML BAG IV (08:45)
[2024-07-28] MEDS: Sotalol Hydrochloride 80 MG Tablet PO (08:45)
[2024-07-28] MEDS: APIXABAN 5 MG TABLET PO (08:45)
[2024-07-28] MEDS: Cyanocobalamin 500 MCG Tablet PO (08:46)
[2024-07-28 09:20] VITALS: BP 150/84; PULSE 80; RESP 18; TEMP 36.9; O2SAT 100
--- NOTE | 2024-07-28 10:22 | CASEMGMT ---
Discharge Planning A list of?SNF providers including quality and resource use data and consistent with the patient's preferred geographic region, medical needs, and insurance network was created in [employer] Guide.? This list was provided to the SW. Catherine Bridges Discharge Planning Asst.
--- NOTE | 2024-07-28 10:32 | CASEMGMT ---
SW was informed that patient was interested in SNF and in completing advance directives. SW met with patient. Introduced self and role at [facility]. Patient confirmed he and his spoke and they would like patient to go to a SNF. SW explained SW can print a list of facilities that take his insurance. He and his can look over the list and choose 3-4 preferences. SW also notified patient that he has a Healthcare Power of [employer] on file. SW will print patient a copy so he can review it to make sure it is accurate. PERRY asked Catherine for a SNF list. SW went back to patient's room and gave him a copy of his Healthcare Power of [employer] and he said it was accurate. SW gave patient the SNF list. Patient said his will be in to see him in a little bit and he asked if SW could return. SW told patient to use his call button and ask for SW when his gets here. Graciela ROBERTS
--- NOTE | 2024-07-28 12:05 | CASEMGMT ---
Addendum entered by Graciela Gaxiola 07/28/24 14:58: PERRY notified patient that [facility] can take him pending approval by his insurance. Graciela ROBERTS Original Note: SW spoke with patient and his Karen. Introduced self to Karen. SW explained the process for going to a prison. SW also went over the Healthcare Living Will and patient would like to complete the document. SW assisted patient in completing the document. Copies made and given to patient. Patient and his chose 3 facilities [facility], [facility] and [facility]. SW made a referral to TCU. TCU can take patient. SW will notify patient. Graciela ROBERTS
[2024-07-28 13:52] VITALS: BP 130/69; PULSE 81; RESP 18; TEMP 36.4; O2SAT 97
--- NOTE | 2024-07-28 15:06 | TREXTCAR_ITS ---
Diet Diet Order/Speech Therapy: 07/28/24 14:23 Diet: Regular - General Dietary Modifications:: No Added Salt Routine Orders/Code Status Suppository Type: Dulcolax 10mg Suppository Frequency: Daily PRN Code Status: Full Code DC O2, CPAP, BIPAP needs Home O2 Discharge instructions: Yes Type of respiratory needs?: Oxygen Oxygen frequency: Continuous Continuous oxygen liters per minute: 4 and BiPAP BiPAP instructions: Pt wears bipap chronically Therapies Physical Therapy: Eval and Treat Occupational Therapy: Eval and Treat Problem/Diagnosis (1) Paroxysmal atrial fibrillation: Status: Acute Code(s): I48.0 - Paroxysmal atrial fibrillation (2) History of hypertension: Status: Acute Code(s): Z86.79 - Personal history of other diseases of the circulatory system Plan # syncope secondary to A-fib with RVR #Chronic hypoxic respiratory failure secondary to due to polio # hypertension # BPH # degenerative scoliosis #Central sleep apnea 79-year-old male with history as above presented to [facility] ED 07/22/2024 with multiple syncopal episodes. He was noted to be in A-fib with RVR with rate up in the 170s and was given a dose of sotalol by cardiology which improved this and converted him to sinus rhythm with PACs. Patient admitted and monitored on sotalol 80 mg twice daily and Eliquis 5 mg twice daily. He had echocardiogram which showed PASP of 35 and an LVEF of 55%. Ultimately patient improved however on plan day of discharge 08/20/2024 patient became very altered and somnolent, CT of the abdomen and pelvis showed a left kidney lesion recommended nonemergent outpatient scan but was otherwise negative, UA with mixed organisms suspected be contaminant. Did have chest x-ray concerning for pneumonia and was started on antibiotics, mental status did improve and patient overall did much better. On day of discharge patient reported that he was feeling generally weak and requiring assistance getting around since he been in the hospital for multiple days and was worried about going home, he was agreeable to placement and had no new or acute complaints, patient accepted to TCU and discharged to TCU 07/28/2024 in stable condition. Discharge instructions as follows: DISCHARGE INSTRUCTIONS PLEASE READ *Please take this with you to your next doctors appointment* - You will be discharged on Eliquis and sotalol -Please follow-up with cardiology upon discharge. You have an appointment scheduled on 08/07/2024 in the cardiology office at 11:30 AM -You will be discharged on 4 more days of antibiotics, Augmentin, for suspected pneumonia -You had a CT scan done during your admission that showed a small spot on your left kidney and it is recommended that you follow-up with your primary care physician for an outpatient nonemergent CT with kidney protocol - Your losartan has been resumed but due to somewhat lower blood pressures your nifedipine has been held on discharge, ultimately this may need to be added back but would hold at this time -Please call your primary care provider's office upon discharge to schedule a hospital follow up within 1 week. -For any concerning signs or symptoms please call 911 or proceed to the nearest emergency department Allergies/Procedures Done in Hospital Allergies metronidazole (From Flagyl) Adverse Reaction (Verified 07/22/24 12:52) Nausea/Vom/Diarrhea VOMITING Type of Care/Length of Stay Estimated LOS: Convalescent Care Less Than 30 days Type of Care Needed: Skilled Rehab Potential: Fair Prognosis: Fair Additional Orders/Day of Discharge Day of Discharge: 07/28/24 Dietary and Speech Recommendations Dietitian Recommendations/Changes: Adjust to liberal regular, no added salt diet due to decreased PO intake. Continue 120ml EPHP 4x daily with medpass, prefers strawberry or vanilla. Will monitor weight trends. Discharge Plan Admission Admit Date/Time: 07/22/24 14:26 Primary Reason for Your Visit: Dizziness Attending Provider: Zakiya Frausto Primary Care Provider: Luis Medina Consulting Providers: Matt Machado; Johana Bryant; Familia Michel Instructions Patient Instructions: Sotalol, AFib Dc Additional Instructions / Restrictions: DISCHARGE INSTRUCTIONS PLEASE READ *Please take this with you to your next doctors appointment* - You will be discharged on Eliquis and sotalol -Please follow-up with cardiology upon discharge. You have an appointment scheduled on 08/07/2024 in the cardiology office at 11:30 AM -You will be discharged on 4 more days of antibiotics, Augmentin, for suspected pneumonia -You had a CT scan done during your admission that showed a small spot on your left kidney and it is recommended that you follow-up with your primary care physician for an outpatient nonemergent CT with kidney protocol - Your losartan has been resumed but due to somewhat lower blood pressures your nifedipine has been held on discharge, ultimately this may need to be added back but would hold at this time -Please call your primary care provider's office upon discharge to schedule a hospital follow up within 1 week. -For any concerning signs or symptoms please call 911 or proceed to the nearest emergency department Discharge Orders/Prescriptions Prescriptions: New sotalol 80 mg Tablet 80 mg PO BID 60 Days Qty: 120 0RF Eliquis 5 mg Tablet 5 mg PO BID 60 Days Qty: 120 0RF amoxicillin-pot clavulanate 875-125 mg tablet 1 tab PO BID 4 Days Qty: 8 0RF losartan 50 mg Tablet 50 mg PO QHS Qty: 0 0RF Continued cyanocobalamin (vitamin B-12) 500 mcg tablet 500 mcg PO DAILY tamsulosin 0.4 MG capsule 0.4 mg PO BID venlafaxine 75 mg capsule,extended release 24hr 75 mg PO DAILY diphenhydramine HCl [Allergy (diphenhydramine)] 25 mg capsule 25 mg PO QHS Discontinued nifedipine 90 mg tablet extended release 90 mg PO QHS losartan 50 mg tablet 50 mg PO QHS Referrals / Follow Up: Luis Medina MD [Primary Care Provider] - Matt Machado MD [Med Staff - Active Staff] - 08/07/24 11:30 am (Appt will be with Roberta Foreman NP. ) Disposition Disposition (needs filled in before D/C Order can be placed): [facility]
--- NOTE | 2024-07-28 15:09 | CASEMGMT ---
Patient was approved to go to TCU today. SW notified physician and patient that patient was approved and can go to TCU today. Plan: d/c to [facility] under skilled level of care. Graciela ROBERTS
[2024-07-28 15:18] VITALS: BP 148/84; PULSE 80; RESP 18; TEMP 36.5; O2SAT 99
--- NOTE | 2024-07-28 15:22 | DS.PCM_ITS ---
Providers Date of Admission: 07/22/24 Date of Discharge: 07/28/24 Primary Care Physician: Dr. Luis Medina MD Consultations 07/22/24 15:23 Consult: Cardiology Routine Consulting Provider: Matt Machado Reason for Consult: syncope, narrow complex v tach. 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 # hypertension # BPH # degenerative scoliosis #Central sleep apnea Medications at Discharge Home Medications tamsulosin 0.4 mg capsule 0.4 mg PO BID prostate 02/03/20 venlafaxine 75 mg capsule,extended release 24 hr 75 mg PO DAILY MOOD 05/31/22 cyanocobalamin (vitamin B-12) 500 mcg tablet 500 mcg PO DAILY supplement 07/10/24 diphenhydramine HCl 25 mg capsule (Allergy (diphenhydramine)) 25 mg PO QHS allergies 07/22/24 apixaban 5 mg tablet (Eliquis) 5 mg PO BID 60 days #120 tabs 07/24/24 sotalol 80 mg tablet 80 mg PO BID 60 days #120 tabs 07/24/24 amoxicillin 875 mg-potassium clavulanate 125 mg tablet 1 tab PO BID 4 days #8 tabs 07/28/24 losartan 50 mg tablet 50 mg PO QHS #0 tabs 07/28/24 Hospital Course Procedures Transthoracic echo Summary of Care Provided Minutes Spent on Discharge: 33 Hospital Course: # syncope secondary to A-fib with RVR #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 He was noted to be in A-fib with RVR with rate up in the 170s and was given a dose of sotalol by cardiology which improved this and converted him to sinus rhythm with PACs. Patient admitted and monitored on sotalol 80 mg twice daily and Eliquis 5 mg twice daily. He had echocardiogram which showed PASP of 35 and an LVEF of 55%. Ultimately patient improved however on plan day of discharge 08/20/2024 patient became very altered and somnolent, CT of the abdomen and pelvis showed a left kidney lesion recommended nonemergent outpatient scan but was otherwise negative, UA with mixed organisms suspected be contaminant. Did have chest x-ray concerning for pneumonia and was started on antibiotics, mental status did improve and patient overall did much better. On day of discharge patient reported that he was feeling generally weak and requiring assistance getting around since he been in the hospital for multiple days and was worried about going home, he was agreeable to placement and had no new or acute complaints, patient accepted to TCU and discharged to TCU 07/28/2024 in stable condition. Discharge instructions as follows: DISCHARGE INSTRUCTIONS PLEASE READ *Please take this with you to your next doctors appointment* - You will be discharged on Eliquis and sotalol -Please follow-up with cardiology upon discharge. You have an appointment scheduled on 08/07/2024 in the cardiology office at 11:30 AM -You will be discharged on 4 more days of antibiotics, Augmentin, for suspected pneumonia -You had a CT scan done during your admission that showed a small spot on your left kidney and it is recommended that you follow-up with your primary care physician for an outpatient nonemergent CT with kidney protocol - Your losartan has been resumed but due to somewhat lower blood pressures your nifedipine has been held on discharge, ultimately this may need to be added back but would hold at this time -Please call your primary care provider's office upon discharge to schedule a hospital follow up within 1 week. -For any concerning signs or symptoms please call 911 or proceed to the nearest emergency department Physical Exam Narrative General: Alert, oriented, no apparent distress HEENT: Atraumatic, normocephalic Eyes: Anicteric, normal conjunctiva, extraocular movements grossly intact Neck: Supple Respiratory: Clear to auscultation bilaterally, normal respiratory effort Cardiovascular: Regular rate and rhythm GI: Soft, nontender, nondistended Extremities: No edema Musculoskeletal: Moving all extremities, has an obvious scoliosis Neuro: No overt focal neurological deficits Skin: No rashes appreciated Psych: Cooperative Weight / BMI Weight Weight: 56.5 kg Body Mass Index (BMI) 20.7 ABG / Lab / Microbiology Data 07/26/24 05:00 07/26/24 05:00 Microbiology: Microbiology 07/24/24 18:30 Urine, Clean Catch Urine Culture - Final Mixed Gram Positive Organisms 07/24/24 15:58 Mucosa - Nasopharyngeal Respiratory Panel (PCR) - Final 07/24/24 17:36 Mucosa - Nasopharyngeal Coronavirus COVID-19 PCR - Final D/C Instructions Discharge Diet: No restrictions Call your doctor if you observe: Fever of 101 or Higher, Shortness of breath, Fainting spells and Chest pain DC O2, CPAP, BIPAP Needs Home O2 Discharge instructions: Yes Type of respiratory needs?: Oxygen Oxygen frequency: Continuous Continuous oxygen liters per minute: 4 and BiPAP BiPAP instructions: Pt wears bipap chronically DC home with Oxygen: Yes Home O2 MD Review: I have reviewed the oxygen testing, and the patient qualifies for home oxygen equipment and portability. The patient is mobile in the home and the community. Meaningful Use Info Meaningful Use Meaningful Use Diagnoses (Choose all that apply): None applicable Ischemic Stroke Statin Dosing Therapy Reference: STATIN DOSE THERAPY REFERENCE: * Patients > 75 years receive moderate or high dose statin therapy. * Patients 75 years or YOUNGER should receive HIGH intensity statin dose unless contraindicated. You will be required to document reason for non-treatment if statin daily dose does not meet guidelines. HIGH DOSE STATIN THERAPY DAILY Atorvastatin > than or = to 40 mg Rosuvastatin > than or = to 20 mg Amlodipine + Atorvastatin > than or = to 2.5/40 mg Ezetimibe + Simvastatin 10/80 mg Simvastatin 80mg Discharge Plan Admission Admit Date/Time: 07/22/24 14:26 Primary Reason for Your Visit: Dizziness Attending Provider: Zakiya Frausto Primary Care Provider: Luis Medina Consulting Providers: Matt Machado; Johana Bryant; Familia Michel Instructions Patient Instructions: Sotalol, AFib Dc Additional Instructions / Restrictions: DISCHARGE INSTRUCTIONS PLEASE READ *Please take this with you to your next doctors appointment* - You will be discharged on Eliquis and sotalol -Please follow-up with cardiology upon discharge. You have an appointment scheduled on 08/07/2024 in the cardiology office at 11:30 AM -You will be discharged on 4 more days of antibiotics, Augmentin, for suspected pneumonia -You had a CT scan done during your admission that showed a small spot on your left kidney and it is recommended that you follow-up with your primary care physician for an outpatient nonemergent CT with kidney protocol - Your losartan has been resumed but due to somewhat lower blood pressures your nifedipine has been held on discharge, ultimately this may need to be added back but would hold at this time -Please call your primary care provider's office upon discharge to schedule a hospital follow up within 1 week. -For any concerning signs or symptoms please call 911 or proceed to the nearest emergency department Discharge Orders/Prescriptions Prescriptions: New sotalol 80 mg Tablet 80 mg PO BID 60 Days Qty: 120 0RF Eliquis 5 mg Tablet 5 mg PO BID 60 Days Qty: 120 0RF amoxicillin-pot clavulanate 875-125 mg tablet 1 tab PO BID 4 Days Qty: 8 0RF losartan 50 mg Tablet 50 mg PO QHS Qty: 0 0RF Continued cyanocobalamin (vitamin B-12) 500 mcg tablet 500 mcg PO DAILY tamsulosin 0.4 MG capsule 0.4 mg PO BID venlafaxine 75 mg capsule,extended release 24hr 75 mg PO DAILY diphenhydramine HCl [Allergy (diphenhydramine)] 25 mg capsule 25 mg PO QHS Discontinued nifedipine 90 mg tablet extended release 90 mg PO QHS losartan 50 mg tablet 50 mg PO QHS Referrals / Follow Up: Luis Medina MD [Primary Care Provider] - Matt Machado MD [Med Staff - Active Staff] - 08/07/24 11:30 am (Appt will be with Roberta Foreman NP. ) Disposition Disposition (needs filled in before D/C Order can be placed): [facility] Facility Charges/Coding Multi Select Codes Visit Charges Visit Charges: 02681 Disch Hosp
--- NOTE | 2024-07-28 15:22 | PHA.DC.MR.R ---
Pharmacy [place] Med Reconciliation Pharmacy Service has performed discharge medication reconciliation for this patient. The patient's discharge medication list was reviewed for discrepancies and discrepancies were resolved. Medications at Discharge Home Medications tamsulosin 0.4 mg capsule 0.4 mg PO BID prostate 02/03/20 venlafaxine 75 mg capsule,extended release 24 hr 75 mg PO DAILY MOOD 05/31/22 cyanocobalamin (vitamin B-12) 500 mcg tablet 500 mcg PO DAILY supplement 07/10/24 diphenhydramine HCl 25 mg capsule (Allergy (diphenhydramine)) 25 mg PO QHS allergies 07/22/24 apixaban 5 mg tablet (Eliquis) 5 mg PO BID 60 days #120 tabs 07/24/24 sotalol 80 mg tablet 80 mg PO BID 60 days #120 tabs 07/24/24 amoxicillin 875 mg-potassium clavulanate 125 mg tablet 1 tab PO BID 4 days #8 tabs 07/28/24 losartan 50 mg tablet 50 mg PO QHS #0 tabs 07/28/24
--- NOTE | 2024-07-28 16:32 | NURSING ---
Report called to TCU
== END 2024-07-28 18:12 | disposition skilled nursing facility (03) ==
LOC: ED 14:21 → PCU 07-23 06:16
PROVIDERS: Internal Medicine; Admitting Provider Student in an Organized Health Care Education/Training Program; Emergency Provider Emergency Medicine; PCP Family Medicine; Visit Provider Internal Medicine
DX: I48.0 Paroxysmal atrial fibrillation (principal); G14 Postpolio syndrome; J96.12 Chronic respiratory failure with hypercapnia; J96.11 Chronic respiratory failure with hypoxia; I11.0 Hypertensive heart disease with heart failure; I50.9 Heart failure, unspecified; I47.29 Other ventricular tachycardia; N30.00 Acute cystitis without hematuria; M41.44 Neuromuscular scoliosis, thoracic region; F32.A Depression, unspecified; G47.31 Primary central sleep apnea; N40.1 Benign prostatic hyperplasia with lower urinary tract symptoms; Z79.899 Other long term (current) drug therapy; R55 Syncope and collapse; N13.8 Other obstructive and reflux uropathy; Z99.81 Dependence on supplemental oxygen; N28.9 Disorder of kidney and ureter, unspecified; J18.9 Pneumonia, unspecified organism
CPT/HCPCS: 36415; 71045; 71260; 74177; 80048; 81001; 82803; 82962; 83735; 83880; 84100; 84484; 85025; 87086; 87088; 87631; 87633; 87635; 93005; 93306; 94002; 94640; 96365; 96366; 97116; 97162; 97166; 97168; 97530; 97802; 97803; 99221; 99283; 99285; Q9957; Q9967; A4216; C8929; G0378

== ENCOUNTER 2024-07-28 18:49 | Inpatient (IN) | payer MEDICARE, SELFPAY ==
[2024-07-28 18:36] VITALS: BP 165/80; PULSE 81; RESP 18; TEMP 36.8; O2SAT 98
[2024-07-28 18:38] VITALS: BMI 23.7
--- NOTE | 2024-07-28 19:56 | HP.PCM_ITS ---
HPI - General General Date of Admission: 07/28/24 Date of Service: 07/29/24 Chief Complaint: Here for rehabilitation. HPI Narrative BERNARDA JOSEPH, is a 79 Male who presents with followin07/22/2024 [facility] ED dizziness/syncope. Syncope, chronic shortness of breath 2/2 restrictive lung disease, polio. Diarrhea x 2 episodes yesterday, mucous in stool. PSVT versus atrial fibrillation with RVR, Sotalol 80mg bid started. 07/22/2024 Admit [facility]. Syncope 2/2 narrow complex tachycardia. Sotalol 80mg po bid, Echo, Cycle troponins, cardiology consult for narrow complex tachycardia. Hold Losartan, Hold Nifedipine for hypotension fro Sotalol. 07/22/2024 Dr. Machado syncope 22 new onset atrial fibrillation with RVR. Start Sotalol 80mg po bid, Eliquis 5mg bid. 07/23/2024 Echo LVSF normal. LVEF 55%. PASP 35mm HG. 07/24/2024 Lost balance, slid to bottom, no injury. 07/24/2024 Not feeling well, weak. Check Chest X-ray urinalysis, respiratory panel, covid-19. 07/25/2024 Urinalysis c/w UTI, Rocephin IV given, urine culture pending. Sotalol 80mg bid, Eliquis 5mg bid for atrial fibrillation with RVR. 07/26/2024 short of breath, asking for aerosol treatment, check CXR. 07/27/2024 CT A/P showed left kidney indeterminate lesion 1.8cm x 1.7cm. Rocephin IV for UTI, urine culture pending. Chest X-ray showed pneumonia, already on Rocephin IV. 07/28/2024 Admit to TCU with debility, here for rehabilitation, strengthening, prior to discharge home with . [facility] Medical History (Updated 07/29/24 @ 00:01 by Background Mauricio) 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 Wears glasses Cancer Depression Claustrophobia Anxiety Alcohol use Redness of skin Uses crutches Arthritis Bladder disease Back pain History of edema History of diverticulitis Post-polio syndrome Non-smoker BiPAP (biphasic positive airway pressure) dependence History of CHF (congestive heart failure) On home oxygen therapy History of pain when walking History of stress test History of echocardiogram Chronic respiratory failure with hypoxia and hypercapnia On mechanically assisted ventilation Post-poliomyelitis syndrome Acute on chronic respiratory failure with hypoxia and hypercapnia Hypertension Lumbar radicular pain Degenerative scoliosis Scoliosis Segmental dysfunction of thoracic region Home Medications ?Medication ?Instructions ?Recorded ?Last Taken ?Type tamsulosin 0.4 mg capsule 0.4 mg PO BID prostate 02/0207/28/24 History venlafaxine 75 mg capsule,extended 75 mg PO DAILY MOOD 05/31/22 07/28/24 History release 24 hr cyanocobalamin (vitamin B-12) 500 500 mcg PO DAILY sup plement 07/10/24 07/28/24 History mcg tablet diphenhydramine HCl 25 mg capsule 25 mg PO QHS allergi es 07/22/24 07/21/24 History (Allergy (diphenhydramine)) Held on 07/28/24. Instructions: MD Ordered apixaban 5 mg tablet (Eliquis) 5 mg PO BID Blood thinn er 60 days 07/24/24 Rx #120 tabs sotalol 80 mg tablet 80 mg PO BID BP 60 days #120 tabs 07/24/24 07/28/24 Rx amoxicillin 875 mg-potassium 1 tab PO BID Antibiotic 4 days #8 07/28/24 Unknown Rx clavulanate 125 mg tablet tabs losartan 50 mg tablet 50 mg PO QHS BP #0 tabs 11/14 Unknown Rx Allergy/AdvReac Type Severity Reaction Status Date / Time metronidazole (From Flagyl) AdvReac Nausea/Vom/ Verified 07/22/24 12:52 Diarrhea Family History Father Myocardial infarction Heart disease Mother Shy-Drager syndrome Other CVA (cerebral vascular accident) Surgical History History of selective injection of anesthetic agent around lumbar nerve root Hx of lithotripsy History of cardiac catheterization Hx of cystoscopy H/O adenoidectomy History of uvulectomy Hip fracture, right History of open reduction and internal fixation (ORIF) procedure Right tibial fracture H/O spinal fusion Social History household members: spouse housing: house Smoking Status: Never smoker substance use type: does not use ROS Constitutional Constitutional: Reports weakness; Denies chills, fever(s) or weight gain ENT HEENT: Denies headache(s), nasal congestion or nasal discharge Cardiovascular Cardiovascular: Denies chest pain or palpitations Respiratory/Chest Respiratory/Chest: Denies cough, excessive phlegm production or shortness of breath with exertion Gastrointestinal Gastrointestinal: Denies abdominal pain, nausea or vomiting Genitourinary Genitourinary: Denies dysuria Musculoskeletal Musculoskeletal: Denies joint pain or joint swelling Integumentary Integumentary: Denies rash or wounds Neurologic Neurologic: Denies focal weakness, numbness or tingling Psychiatric Psychiatric: Denies anxiety, auditory hallucinations, depression, homicidal ideation or suicidal ideation Vital Signs Vital Signs Vital Signs: 07/28/24 18:36 07/28/24 18:48 Temperature 98.3 F Temperature Source Temporal Pulse Rate 81 Pulse Strength Normal (2+) Respiratory Rate 18 Blood Pressure 165/80 H Blood Pressure Mean 108 Blood Pressure Source Monitor Blood Pressure Position Sitting Blood Pressure Location Left Arm Pulse Ox 98 Oxygen Delivery Method Nasal Cannula Oxygen Flow Rate (L/min) 5 Weight Weight: 64.728 kg Body Mass Index (BMI) 23.7 Physical Exam Const alert General Appearance: cooperative HEENT normocephalic Eyes PERRL and EOMs intact bilaterally Neck supple, no JVD and no carotid bruits Resp normal respiratory effort, normal air movement and clear to auscultation bilaterally Cardio regular rate and regular rhythm GI normal to inspection, nondistended, normoactive bowel sounds, non-tender and non-distended Extremity normal capillary refill General Extremity: Negative for edema Skin no rashes or lesions noted General Skin Exam: no breakdown Psych affect normal Appearance: appropriate Assessment & Plan Assessment/Plan (1) Debility: (2) Syncope, cardiogenic: (3) Atrial fibrillation with rapid ventricular response: (4) Urinary tract infection: (5) Pneumonia: (6) Obstructive sleep apnea: (7) BPH (benign prostatic hypertrophy): (8) Vitamin D deficiency: (9) Essential (primary) hypertension: (10) Hypokalemia: (11) Restrictive lung disease: (12) Post-poliomyelitis syndrome: (13) Depression: PLAN: Plan 79 year old male with below past medical history hospitalized for syncope 2/2 atrial fibrillation with rapid ventricular response, complicated by urinary tract infection, pneumonia, admitted to TCU with debility, here for amando abilitation, strengthening, prior to discharge home with . * Debility - PT/OT. * Pain - Tylenol 1000mg q6 prn pain (1-10). * Bowel - senna/colace 1 tablet bid, Magnesium citrate 300mL daily prn. * Adult immunization - Administer pneumonia vaccine, covid vaccine, flu vaccine as appropriate. * DVT prophylaxis - Eliquis. * UTI/Pneumonia - Augmentin 875ng bid thru 08/01/2024. * Atrial fibrillation - Sotalol 80mg bid, Eliquis 5mg bid. * Vitamin B12 deficiency - B12 500mcg daily * Nutrition - Ensure Plus 120mL 4x/day. * Hypertension - Sotalol 80mg bid, Losartan 50mg qhs. * BPH - Tamsulosin 0.4mg bid. 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
[2024-07-28 21:52] VITALS: BP 154/76; PULSE 83; RESP 16
[2024-07-28] MEDS: Ensure Plus High Protein 120 ML LIQUID PO (21:54)
[2024-07-28] MEDS: APIXABAN 5 MG TABLET PO (21:54)
[2024-07-28] MEDS: Tamsulosin HCl 0.4 MG Capsule PO (21:54)
[2024-07-28] MEDS: Amox/Clavulanate 875 MG Tablet PO (21:54)
[2024-07-28] MEDS: Losartan Potassium 50 MG Tablet PO (21:54)
[2024-07-28] MEDS: Sotalol Hydrochloride 80 MG Tablet PO (21:54)
[2024-07-29 08:21] VITALS: BP 138/88; PULSE 88; RESP 18; TEMP 36.9; O2SAT 99
--- NOTE | 2024-07-29 08:23 | PCM.PN.DRR ---
Documented by User: Haseeb Ray 07/29/24 08:48 TCU RX Drug Regimen Review Subjective/Objective Subjective/Objective Subjective: TCU admission note. 79 year old male with below past medical history hospitalized for syncope 2/2 atrial fibrillation with rapid ventricular response, complicated by urinary tract infection, pneumonia, admitted to TCU with debility, here for rehabilitation, strengthening, prior to discharge home with . Objective: Allergies metronidazole (From Flagyl) Adverse Reaction (Verified 07/22/24 12:52) Nausea/Vom/Diarrhea VOMITING Current Medications Generic Name Dose Route Start Last Admin Trade Name Freq PRN Reason Stop Dose Admin Acetaminophen 1,000 mg 07/28/24 20:09 Acetaminophen 500 Mg Tablet PO Q6H PRN PRN Pain Score 1-10 Amoxicillin/Clavulanate Potassium 875 mg 07/28/24 22:00 07/28/24 21:54 Amox/Clavulanate 875 Mg Tablet PO 08/01/24 08:01 875 mg BIDCM NIURKA Administration Apixaban 5 mg 07/28/24 22:00 07/28/24 21:54 Apixaban 5 Mg Tablet PO 5 mg BID NIURKA Administration Cyanocobalamin 500 mcg 07/29/24 10:00 Cyanocobalamin 500 Mcg Tablet PO DAILY NIURKA Losartan Potassium 50 mg 07/28/24 22:00 07/28/24 21:54 Losartan Potassium 50 Mg Tablet PO 50 mg QHS NIURKA Administration Protocol Magnesium Citrate 300 ml 07/28/24 20:09 Magnesium Citrate 300 Ml PO DAILY PRN Constipation Nutritional Formula (Lactose Free) 120 ml 07/28/24 22:00 07/29/24 05:17 Ensure Plus High Protein 120 Ml Liquid PO Not Given 4X/DAY NIURKA Senna/Docusate Sodium 1 tablet 07/28/24 22:00 07/28/24 21:54 Senna/Docusate Sodium 1 Tablet PO Not Given BID NIURKA Sodium Chloride 10 - 40 ml 07/28/24 18:40 0.9% Saline Lock 10 Ml Syringe IV UD PRN SALINE FLUSH Sotalol HCl 80 mg 07/28/24 22:00 07/28/24 21:54 Sotalol Hydrochloride 80 Mg Tablet PO 80 mg BID NIURKA Administration Protocol Tamsulosin HCl 0.4 mg 07/28/24 22:00 07/28/24 21:54 Tamsulosin Hcl 0.4 Mg Capsule PO 0.4 mg BID NIURKA Administration Tuberculin PPD 0.1 ml 07/29/24 10:00 Tuberculin,Purif.Prot.Deriv. 50 Tu/Ml Vial ID 07/29/24 10:01 X1 ONE Tuberculin PPD 0.1 ml 08/05/24 10:00 Tuberculin,Purif.Prot.Deriv. 50 Tu/Ml Vial ID 08/05/24 10:01 X1 ONE Venlafaxine HCl 75 mg 07/29/24 10:00 Venlafaxine Xr 75 Mg Capsule PO DAILY [facility] Problem List Depression (Acute) Restrictive lung disease (Acute) Hypokalemia (Acute) Essential (primary) hypertension (Acute) Vitamin D deficiency (Acute) Pneumonia (Acute) Urinary tract infection (Acute) Atrial fibrillation with rapid ventricular response (Acute) Debility (Acute) Obstructive sleep apnea (Chronic) BPH (benign prostatic hypertrophy) (Chronic) Post-poliomyelitis syndrome (Chronic) Vital Signs Temp Pulse Resp BP Pulse Ox O2 Del Method O2 Flow Rate 98.3 F 83 16 154/76 H 98 Nasal Cannula 5 07/28/24 18:36 07/28/24 21:52 07/28/24 21:52 07/28/24 21:52 07/28/24 18:36 07/28/24 22:00 07/28/24 22:00 Oxygen Flow Rate (L/min) 5 Oxygen Delivery Method Nasal Cannula Weight: 64.728 kg Body Mass Index (BMI) 23.7 Assessment/Plan: 1. Pain: acetaminophen 1000 mg PO Q6H PRN pain (1-10). The patient has not required any PRN doses of acetaminophen so far this admission. Please continue to monitor for PRN medication usage, pain levels, and LFTs (AST/ALT = 24/27 U/L on 07/10/24). 2. Bowel: senna/docusate 1 tablet PO BID, magnesium citrate 300 mL PO daily PRN constipation. The patient has not required any PRN uses of magnesium citrate so far this admission and the patient's last bowel movement was on 07/29/24. Please continue to monitor for bowel movements, PRN medication usage, constipation and diarrhea. 3. UTI/Pneumonia: amoxicillin/clavulanate 875 mg PO BID with meals through 08/01/24. Please continue to monitor for s/s of UTI/PNA including dysuria, frequency, shortness of breath, fevers (Temp = 98.1 F on 07/29/24), chills, diarrhea, renal function (serum creatinine = 0.64 mg/dL with creatinine clearance ~ 62 mL/min on 07/26/24), WBC counts (WBC = 5.6 K/mm3 on 07/26/24), and for GI distress with Augmentin administration. 4. Atrial fibrillation: sotalol 80mg PO BID, apixaban 5 mg PO BID. Please continue to monitor for s/s of stroke, for bleeding/excessive bruising, serum creatinine (creatinine = 0.64 mg/dL on 07/26/24), hemoglobin levels (Hgb = 12.6 mg/dL on 07/26/24), platelet counts (plt = 225 K/mm3 on 07/26/24), QTC levels (QTc = 436 ms), and heart rates (recent range = 78-92 beats/min). 5. Hypertension: losartan 50 mg PO QHS. Please continue to monitor blood pressures (recent range = 127-165/60-100 mmHg), renal function (serum creatinine = 0.64 mg/dL with creatinine clearance ~ 62 mL/min on 07/26/24), potassium levels (K = 4.7 mmol/L on 07/26/24), and sodium levels (Na = 141 mmol/L on 07/26/24). The patient's blood pressures have been elevated over the past couple days, please consider increasing the patient's losartan to 100 mg PO daily. 6. BPH: tamsulosin 0.4 mg PO BID. Please continue to monitor for urinary retention, and for s/s of orthostasis. 7. Vitamin B12 deficiency: cyanocobalamin 500 mcg PO daily. Please continue to monitor for s/s of vitamin B12 deficiency, as well as vitamin B12 levels (no recent vitamin B12 levels documented). 8. Nutrition: ensure plus high protein 120 mL PO 4x/day. Please continue to monitor overall nutritional status. Assessment/Plan for indications treated with psychotropic medications: 1. Depression: venlafaxine 75 mg XR PO daily. Please see provider note regarding stable chronic long-term use, GDR recommended. Please continue to monitor for depression, SI, s/s of serotonin syndrome, blood pressures (recent range = 127-165/60-100 mmHg), sodium levels (Na = 141 mmol/L on 07/26/24), and nausea/dry mouth. Medical chart and medication regimen reviewed. The following medication irregularities or issues were identified: 1. Hypertension: losartan 50 mg PO QHS. The patient's blood pressures have been elevated over the past couple days, please consider increasing the patient's losartan to 100 mg PO daily. Date Date of Note: 07/29/24 Documented by User: Dr. Ezekiel Fitch MD 07/29/24 09:07 TCU RX Drug Regimen Review Provider Comments Provider responsibility Provider Comments to Recommendations by Pharmacy Agree
[2024-07-29 08:24] VITALS: BP 154/74; PULSE 87; RESP 18; TEMP 36.7; O2SAT 100
[2024-07-29] MEDS: Amox/Clavulanate 875 MG Tablet PO ×2 (08:26→17:21)
[2024-07-29] MEDS: Cyanocobalamin 500 MCG Tablet PO (08:26)
[2024-07-29] MEDS: Venlafaxine XR 75 MG Capsule PO (08:26)
[2024-07-29] MEDS: Tamsulosin HCl 0.4 MG Capsule PO ×2 (08:26→21:24)
[2024-07-29] MEDS: Sotalol Hydrochloride 80 MG Tablet PO ×2 (08:26→21:23)
[2024-07-29] MEDS: APIXABAN 5 MG TABLET PO ×2 (08:27→21:24)
[2024-07-29 09:48] LABS: Absolute Lymphocyte Count 0.44 X10^3/uL (0.83-4.51); Absolute Neutrophil Count 5.6 X10^3/uL (2.0-7.7); Basophil# 0.04 X10^3/uL; Basophil% 0.6 % (0-1); Eosinophil# 0.08 X10^3/uL; Eosinophils% 1.2 % (0-5); Hematocrit 40.5 % (40-54); Hemoglobin 13.1 g/dL (13.0-16.5); Lymphocyte # 0.44 X10^3/ul (0.83-4.51); Lymphocyte % 6.4 % (19-41); Mean Corp Hgb Conc 32.3 g/dL (32-36); Mean Corpuscular Hgb 30.6 pg (27.0-32.0); Mean Corpuscular Volume 94.6 fL (80-94); Mean Platelet Vol. 9.5 fl (6.2-12.0); Monocyte# 0.65 X10^3/uL; Monocyte% 9.4 % (0-10); NRBC Flagged by Analyzer 0 % (0-5); Neutrophil # 5.63 X10^3/uL (2.7-7.7); Neutrophil % 81.7 % (47-70); POSITIVE DIFFERENTIAL YES; Platelet Count 228 K/mm3 (150-450); RBC Distribution Width CV 12.4 % (11.6-14.6); RBC Distribution Width SD 42.8 fl (35.1-43.9); Red Blood Count 4.28 M/mm3 (4.6-6.2); White Blood Count 6.9 K/mm3 (4.4-11.0)
[2024-07-29] MEDS: Tuberculin,Purif.prot.deriv. 50 TU/ML Vial 0.1 ML ID (10:34)
--- NOTE | 2024-07-29 10:55 | NURSING ---
Concern from resident that external ventilator system not working correctly. Per our RT they don't manage those. Called [facility] number on device, RN spoke with rep and explained situation then let resident explain his concerns. Per rep they can see the settings and all looks good form their end, nothing has changed. They will send him a new mask.
[2024-07-29 11:47] LABS: Anion Gap 10 (5-15); BUN 13 mg/dL (4-19); Carbon Dioxide 40.1 mmol/L (21.0-32.0); Chloride 92 mmol/L (98-108); Creatinine, Serum 0.51 mg/dL (0.70-1.20); EST Glomerular Filtration Rate 104 (>60); Estimated Creatinine Clearance 67.27 ml/min (50-250); Glucose 188 mg/dL (70-99); Potassium 3.9 mmol/L (3.3-5.1); Sodium Level 142 mmol/L (133-145)
[2024-07-29 14:03] VITALS: O2SAT 96
--- NOTE | 2024-07-29 15:42 | CHAPLAIN ---
Type of Pastoral Visit _x__ Initial Visit ___ Follow-up Visit ___ On-call Visit ___ General Patient Visit ___ Spiritual Assessment ___ Family Conference ___ Bereavement ___ Rapid Response ___ Code Blue ___ Other (describe below) Pastoral Care Referral From _x__ Patient ___ Family ___ Nurse ___ Physician ___ K 12 Principal ___ Business Writer ___ Other (describe below) Sacrament/Intervention _x__ Active listening ___ Anointing ___ Druze ___ Bereavement ___ Communion ___ Rossi exploration ___ _x__ Life review ___ Prayer ___ Reconciliation ___ Sacrament of Sick _x__ Supportive presence ___ Wedding ___ Other (describe below) Pastoral Comments patient was seen last week in the PCU; pt is more involved in conversation today and speaks of his health history and of the current events that led to this hospitalization and now therapy; pt speaks of good support from family and friends; pt is somewhat embarrassed that he was setting off the bed alarm by mistake earlier in his admission; pt is receptive to visit but declines any other interventions at this time
[2024-07-29 15:45] VITALS: BP 132/83; PULSE 75; RESP 18; TEMP 37; O2SAT 5
[2024-07-29] MEDS: Ensure Plus High Protein 120 ML LIQUID PO ×2 (17:22→21:23)
[2024-07-29] MEDS: Losartan Potassium 100 MG Tablet PO (21:24)
[2024-07-29 21:29] VITALS: PULSE 79; RESP 16; O2SAT 96
[2024-07-30 08:15] VITALS: BP 186/98; PULSE 84; RESP 20; O2SAT 95
[2024-07-30 08:54] VITALS: BP 142/62; PULSE 82; RESP 16; TEMP 37; O2SAT 94
[2024-07-30] MEDS: APIXABAN 5 MG TABLET PO ×2 (08:58→20:36)
[2024-07-30] MEDS: Amox/Clavulanate 875 MG Tablet PO ×2 (08:58→17:21)
[2024-07-30] MEDS: Tamsulosin HCl 0.4 MG Capsule PO ×2 (08:59→20:36)
[2024-07-30] MEDS: Venlafaxine XR 75 MG Capsule PO (08:59)
[2024-07-30] MEDS: Cyanocobalamin 500 MCG Tablet PO (08:59)
[2024-07-30] MEDS: Sotalol Hydrochloride 80 MG Tablet PO ×2 (09:03→20:36)
--- NOTE | 2024-07-30 12:10 | NS ---
Res only wanting vanilla EPHP - currently out of stock with this flavor. Will provide 8 oz vanilla CIB w/ breakfast and dinner for increased nutrition if consumed.
[2024-07-30 13:36] VITALS: O2SAT 94
--- NOTE | 2024-07-30 13:36 | CASEMGMT ---
Social Work- SW met with pt to complete initial assessment. SW introduced self and role; pt agreeable to meeting. Pt was pleasant and conversive, fully engaged in conversation with normal affect and free speech. Pt frequently paused to recall names of streets, reporting that he has recently noticed that he needs to make an effort with recall, whereas that has not typically been an issue for him prior. Pt was observed to be a reliable historian and shared information freely. Pt confirmed code status. SW verified contacts. Pt scored 14/15 on BIMS and 0/2 on PHQ9. Pt reports that he lives with his in a single story home with two small dogs that they keep in a three-seasons room. Pt has six siblings, all alive and whom live within a short radius of pt. Pt spoke reportedly of how much he values his family and the time they have spent together. Pt reports that he is uncertain if he will be able to return home, but would like to if safely possible. Pt is open to discharge to an assisted living if needed. SW will continue to follow for discharge planning needs. MARISELA Lara
[2024-07-30] MEDS: Losartan Potassium 100 MG Tablet PO (20:36)
[2024-07-30 20:40] VITALS: BP 117/49; PULSE 70
[2024-07-31] MEDS: Acetaminophen 500 MG Tablet 1000 MG PO (02:04)
[2024-07-31 08:57] VITALS: BP 129/68; RESP 18; TEMP 36.4; O2SAT 99
[2024-07-31] MEDS: Amox/Clavulanate 875 MG Tablet PO ×2 (09:00→17:48)
[2024-07-31] MEDS: Sotalol Hydrochloride 80 MG Tablet PO ×2 (09:00→21:22)
[2024-07-31] MEDS: Cyanocobalamin 500 MCG Tablet PO (09:01)
[2024-07-31] MEDS: APIXABAN 5 MG TABLET PO ×2 (09:01→21:22)
[2024-07-31] MEDS: Tamsulosin HCl 0.4 MG Capsule PO ×2 (09:01→21:22)
[2024-07-31] MEDS: Venlafaxine XR 75 MG Capsule PO (09:01)
--- NOTE | 2024-07-31 10:00 | NURSING ---
Addendum entered by Kristina Denis 07/31/24 17:27: dr kent ordered xray of abdomen & PRN imodium Original Note: pt c/o loose stools since admit to hospital. stool softeners held d/t pt refusing them. message left with dr kent.
[2024-07-31 11:57] VITALS: PULSE 88; RESP 18; O2SAT 99
--- NOTE | 2024-07-31 12:52 | NURSING ---
Benzene Worker Note; Activity Asset: Dejah Morales prefers to be called David. He is independent in his choice of daily activities. will bring him items he may need or want. St this time he is good w/tv and reading the paper. Staff will remind him of weekly activities and respect his right o say no.
[2024-07-31 13:41] VITALS: O2SAT 94
--- NOTE | 2024-07-31 17:22 | NURSING ---
pt off floor to xray at this time.
--- NOTE | 2024-07-31 17:25 | RAD_ITS ---
PROCEDURE: ABDOMEN SINGLE VIEW 07/31/2024 REASON FOR EXAM: LOOSE STOOLS. TECHNIQUE: Single view abdomen. COMPARISON: CT of the abdomen/pelvis dated 07/26/2024. FINDINGS: Status post right transfemoral nailing. There are scattered phleboliths within the pelvis. Moderate colonic stool is present. There is no evidence of bowel obstruction. S shaped scoliosis is present. Atheromatous calcification seen within the thoracoabdominal aorta. RAD/Abdomen Single View IMPRESSION: No evidence to suggest bowel obstruction at this time. Reading Location: [id number]
[2024-07-31] MEDS: Magnesium Citrate 300 ML PO (18:57)
--- NOTE | 2024-07-31 18:59 | NURSING ---
dr kent notified of xray results, new order to DC imodium. pt drinking PRN mag citrate 300ml now
--- NOTE | 2024-07-31 20:19 | CPS ---
Patient set up with own PAP machine brought in from home for the night.
[2024-07-31] MEDS: Losartan Potassium 100 MG Tablet PO (21:22)
[2024-07-31 21:26] VITALS: BP 160/91; PULSE 85
[2024-08-01 09:09] VITALS: BP 136/73; PULSE 86; RESP 18; TEMP 36.4; O2SAT 98
[2024-08-01] MEDS: Tamsulosin HCl 0.4 MG Capsule PO ×2 (09:11→21:17)
[2024-08-01] MEDS: APIXABAN 5 MG TABLET PO ×2 (09:11→21:17)
[2024-08-01] MEDS: Amox/Clavulanate 875 MG Tablet PO (09:11)
[2024-08-01] MEDS: Sotalol Hydrochloride 80 MG Tablet PO ×2 (09:11→21:17)
[2024-08-01] MEDS: Cyanocobalamin 500 MCG Tablet PO (09:11)
[2024-08-01] MEDS: Venlafaxine XR 75 MG Capsule PO (09:11)
--- NOTE | 2024-08-01 09:44 | NURSING ---
pt did get mag citrate 300ml late evening yesterday and states he did have 2 good bowel movements, pt very tired today.
--- NOTE | 2024-08-01 10:00 | NURSING ---
night shift supervisor left message for dr kent that pt c/o not sleeping well, new order for doxepin, pt updated.
--- NOTE | 2024-08-01 10:11 | CASEMGMT ---
Social Work SW completed BIMS () and PHQ-9 () for MDS assessment. SW explored positive responses. pt reports lack of ability to sleep, lack of energy, and feeling depressed d/t those reasons. Pt reports to taking antidepressant. SW inquired about asking Dr for medication to help with sleep. Pt agreed. Pt had to use the restroom and discussion was cut short. SW offered ongoing support as pt needs. - SW left written communication for Dr. Bárbara Perez INTERRELATED SPECIAL EDUCATION TEACHER MEDICAL LABORATORY SPECIALIST
[2024-08-01 11:59] VITALS: PULSE 86; RESP 16; O2SAT 98
[2024-08-01 13:13] VITALS: O2SAT 95
[2024-08-01 13:30] VITALS: O2SAT 95
[2024-08-01 21:15] VITALS: BP 143/72; PULSE 75; O2SAT 98
[2024-08-01] MEDS: Doxepin Hydrochloride 10 MG Capsule PO (21:17)
[2024-08-01] MEDS: Losartan Potassium 100 MG Tablet PO (21:17)
[2024-08-02] VITALS (9 sets, daily range): BP systolic 121–153; BP diastolic 72–85; PULSE 65–88; RESP 15–22; TEMP 36.4; O2SAT 90–98
[2024-08-02] MEDS: Sotalol Hydrochloride 80 MG Tablet PO ×2 (09:28→22:33)
[2024-08-02] MEDS: Venlafaxine XR 75 MG Capsule PO (09:28)
[2024-08-02] MEDS: APIXABAN 5 MG TABLET PO ×2 (09:29→22:34)
[2024-08-02] MEDS: Tamsulosin HCl 0.4 MG Capsule PO ×2 (09:29→22:34)
[2024-08-02] MEDS: Cyanocobalamin 500 MCG Tablet PO (09:29)
--- NOTE | 2024-08-02 14:50 | NURSING ---
Addendum entered by Kiah Alvarez 08/02/24 18:18: Patient off bipap for dinner. O2 decreased to 3L via NC. Patient at 92-93%. Patient O2 decreased to 2L via NC. Will monitor. Addendum entered by Kiah Alvarez 08/02/24 17:15: Updated Dr. Fitch on ABG results. CO2 remains critical however decreased from previous draw. Per Dr. Fitch, continue with bipap. Recheck ABG in 2 hours. VORB. Addendum entered by Kiah Alvarez 08/02/24 15:49: Call placed to Dr. Fitch with critical CO2. Per Dr. Fitch wean to 90% on NC and recheck ABG. Patient was then placed on bipap by respiratory per respiratory orders. Updated Dr. Fitch via secure text, and new order to repeat ABG in 1 hour. Order confirmed by secure text. Original Note: Patient called nurse to room to assess. Patient stating he's feeling off. Patient states he has retained CO2 in the past and he feels that same way. Patient requesting ABG. Call placed to Dr. Fitch, new order for ABG, d/c doxepin, add melatonin 10mg PO PRN QHS for sleep. VORB.
[2024-08-02 15:16] LABS: Allen Test Positive; Base Excess 21 mmol/L (-2 to +2); Bicarbonate 47.7 mmol/L (22-26); Blood Gas Specimen Type ART; Mode Not entered; O2 Delivery Device Cannula; PO2 155 mmHG (75-100); SITE L Radial; SO2 99 % (95-99); Time Given 15:14:41; Total Carbon Dioxide > 50 mmol/L; pCO2 97.5 mmHg (35-45)
[2024-08-02 16:56] LABS: Allen Test Positive; Base Excess 25 mmol/L (-2 to +2); Bicarbonate 49.6 mmol/L (22-26); Blood Gas Specimen Type ART; Mode Not entered; O2 Delivery Device BiPAP; PO2 61 mmHG (75-100); RR 15; SITE L Radial; SO2 89 % (95-99); Time Given 16:54:36; Total Carbon Dioxide > 50 mmol/L; pCO2 83.1 mmHg (35-45); pH 7.38 (7.35-7.45)
--- NOTE | 2024-08-02 19:29 | CPS ---
talked to nurse and pt -abg not done because pt off bipap at this time-sats 92% on 2.5 l/m-pt wants to wear own machine with o2 bleed in tonight.
--- NOTE | 2024-08-02 19:36 | NURSING ---
Patient declined BiPAP. Respiratory aware.
[2024-08-02] MEDS: Losartan Potassium 100 MG Tablet PO (22:34)
[2024-08-02] MEDS: MELATONIN 10 MG TABLET PO (22:38)
--- NOTE | 2024-08-03 00:49 | NURSING ---
Patient has own CPAP on with O2 bleed in of 3L.
[2024-08-03 07:36] VITALS: O2SAT 93
[2024-08-03] MEDS: Venlafaxine XR 75 MG Capsule PO (07:59)
[2024-08-03] MEDS: Sotalol Hydrochloride 80 MG Tablet PO ×2 (07:59→21:53)
[2024-08-03] MEDS: Cyanocobalamin 500 MCG Tablet PO (08:00)
[2024-08-03] MEDS: Tamsulosin HCl 0.4 MG Capsule PO ×2 (08:00→21:54)
[2024-08-03] MEDS: APIXABAN 5 MG TABLET PO ×2 (08:00→21:54)
[2024-08-03 14:29] VITALS: BP 138/70; PULSE 75; RESP 20; TEMP 36.7; O2SAT 91
--- NOTE | 2024-08-03 16:45 | NURSING ---
Patient request to walk in [place] this afternoon. This nurse walks with patient and he remains on 1L and lowest SP02 89%. Reports being SOB after walking, but no drop in SPO2.
[2024-08-03 21:45] VITALS: BP 160/89; PULSE 87; O2SAT 93
[2024-08-03] MEDS: Losartan Potassium 100 MG Tablet PO (21:53)
[2024-08-03 22:00] VITALS: PULSE 88; O2SAT 93
[2024-08-04 06:52] VITALS: PULSE 72; O2SAT 93
[2024-08-04 07:05] VITALS: O2SAT 93
--- NOTE | 2024-08-04 07:05 | CPS ---
Pt on own NIV w/2lpm O2 bled-in.
--- NOTE | 2024-08-04 08:41 | NURSING ---
Electric Spot Welder Note; MDS for 08/04/2024 Complete
[2024-08-04] MEDS: Tamsulosin HCl 0.4 MG Capsule PO ×2 (08:44→22:29)
[2024-08-04] MEDS: Venlafaxine XR 75 MG Capsule PO (08:44)
[2024-08-04] MEDS: Cyanocobalamin 500 MCG Tablet PO (08:44)
[2024-08-04] MEDS: Sotalol Hydrochloride 80 MG Tablet PO ×2 (08:44→22:29)
[2024-08-04] MEDS: APIXABAN 5 MG TABLET PO ×2 (08:44→22:29)
[2024-08-04 11:08] VITALS: O2SAT 93
[2024-08-04] MEDS: Acetaminophen 500 MG Tablet 1000 MG PO (11:47)
[2024-08-04 16:00] VITALS: BP 157/90; PULSE 77; RESP 24; TEMP 36.7; O2SAT 91
[2024-08-04 22:28] VITALS: BP 175/75; PULSE 83
[2024-08-04] MEDS: Losartan Potassium 100 MG Tablet PO (22:28)
[2024-08-04] MEDS: MELATONIN 10 MG TABLET PO (22:29)
[2024-08-04 23:33] VITALS: BP 156/88; PULSE 66
--- NOTE | 2024-08-05 02:52 | NURSING ---
Patient reports to this nurse he feels his external ventilator device is not giving him enough pressure to be effective. This nurse had STATE TROOPER call respiratory while this nurse assessed patient. Patient's SpO2 94% on 2L O2. Lung sounds clear. Patient not as responsive and alert as previous round. Patient states I don't know how I can be restless yet also lethargic. Respiratory spoke with patient, checked external ventilator device settings, and educated patient on settings and reasons he may feel it's not as pressurized. Respiratory stressed to patient that sleep is super important and that the external ventilator device should provide him adequate pressure throughout his sleep. Patient stated to respiratory and this nurse that he had not been getting enough sleep during his hospitalization here. Patient stated, I used to take percocet at home, have been for 12 years. Patient understands that medication is not a reasonable solution, however he feels the PRN melatonin is not working for him. Patient reports he has been anxious here and that is contributing to him not being able to rest, he is scared he is not getting enough sleep. This nurse consulted Dr. Fitch via telephone. New order for Ativan 1mg PO Q4H PRN for anxiety/restlessness/sleep. Telephone order read back and verified via Dr. Fitch.
[2024-08-05] MEDS: LORazepam 1 MG Tablet PO (03:16)
[2024-08-05 05:58] LABS: Absolute Lymphocyte Count 0.72 X10^3/uL (0.83-4.51); Absolute Neutrophil Count 8.6 X10^3/uL (2.0-7.7); Basophil# 0.08 X10^3/uL; Basophil% 0.8 % (0-1); Eosinophil# 0.18 X10^3/uL; Eosinophils% 1.7 % (0-5); Hematocrit 42.5 % (40-54); Hemoglobin 13.5 g/dL (13.0-16.5); Lymphocyte # 0.72 X10^3/ul (0.83-4.51); Lymphocyte % 6.8 % (19-41); Mean Corp Hgb Conc 31.8 g/dL (32-36); Mean Corpuscular Hgb 30.1 pg (27.0-32.0); Mean Corpuscular Volume 94.7 fL (80-94); Mean Platelet Vol. 9.7 fl (6.2-12.0); Monocyte% 8.5 % (0-10); NRBC Flagged by Analyzer 0 % (0-5); Neutrophil # 8.61 X10^3/uL (2.7-7.7); Neutrophil % 81.5 % (47-70); Platelet Count 304 K/mm3 (150-450); RBC Distribution Width CV 12.7 % (11.6-14.6); RBC Distribution Width SD 43.7 fl (35.1-43.9); Red Blood Count 4.49 M/mm3 (4.6-6.2); White Blood Count 10.6 K/mm3 (4.4-11.0)
[2024-08-05 08:17] LABS: Anion Gap 11 (5-15); BUN 16 mg/dL (4-19); BUN/Creat Ratio 35.7 RATIO (10-20); Calcium,Total 9.3 mg/dL (7.6-11.0); Carbon Dioxide 37.7 mmol/L (21.0-32.0); Chloride 92 mmol/L (98-108); Creatinine, Serum 0.46 mg/dL (0.70-1.20); EST Glomerular Filtration Rate 108 (>60); Estimated Creatinine Clearance 67.27 ml/min (50-250); Glucose 151 mg/dL (70-99); Potassium 4.4 mmol/L (3.3-5.1); Sodium Level 140 mmol/L (133-145)
[2024-08-05 08:48] LABS: Bedside Glucose 163 mg/dL (74-106)
--- NOTE | 2024-08-05 08:49 | NURSING ---
0825-Went in room to check on resident, unable to arouse even to sternal rub. 02 sat 96% on 2L NC, BP 152/103. Rapid response called, medical team to room. Determined he needed transferred to ER d/t inability to arouse. Taken to ER, handoff given at bedside to RN and physician. SW reached out to resident's .
[2024-08-05 08:53] LABS: Base Excess 18 mmol/L (-2 to +2); Bicarbonate 46.5 mmol/L (22-26); Blood Gas Specimen Type ART; Mode Not entered; O2 Delivery Device Cannula; PO2 73 mmHG (75-100); SITE R Radial; SO2 87 % (95-99); Total Carbon Dioxide > 50 mmol/L; pCO2 130.6 mmHg (35-45); pH 7.16 (7.35-7.45)
[2024-08-05 09:04] VITALS: BP 111/68
--- NOTE | 2024-08-05 09:20 | DS.PCM_ITS ---
Providers Date of Admission: 07/28/24 Primary Care Physician: Dr. Luis Medina MD Reason For Visit: SYNCOPE Diagnosis Discharge Diagnosis (1) Debility: Status: Acute Code(s): R53.81 - Other malaise (2) Syncope, cardiogenic: Status: Resolved Code(s): R55 - Syncope and collapse (3) Atrial fibrillation with rapid ventricular response: Status: Acute Code(s): I48.91 - Unspecified atrial fibrillation (4) Urinary tract infection: Status: Acute Code(s): N39.0 - Urinary tract infection, site not specified (5) Pneumonia: Status: Acute Code(s): J18.9 - Pneumonia, unspecified organism (6) Obstructive sleep apnea: Status: Chronic Code(s): G47.33 - Obstructive sleep apnea (adult) (pediatric) (7) BPH (benign prostatic hypertrophy): Status: Chronic Code(s): N40.0 - Benign prostatic hyperplasia without lower urinary tract symptoms (8) Vitamin D deficiency: Status: Acute Code(s): E55.9 - Vitamin D deficiency, unspecified (9) Essential (primary) hypertension: Status: Acute Code(s): I10 - Essential (primary) hypertension (10) Hypokalemia: Status: Acute Code(s): E87.6 - Hypokalemia (11) Restrictive lung disease: Status: Acute Code(s): J98.4 - Other disorders of lung (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 * Debility - PT/OT. * Pain - Tylenol 1000mg q6 prn pain (1-10). * Bowel - senna/colace 1 tablet bid, Magnesium citrate 300mL daily prn. * Adult immunization - Administer pneumonia vaccine, covid vaccine, flu vaccine as appropriate. * DVT prophylaxis - Eliquis. * UTI/Pneumonia - Augmentin 875ng bid thru 08/01/2024. * Atrial fibrillation - Sotalol 80mg bid, Eliquis 5mg bid. * Vitamin B12 deficiency - B12 500mcg daily * Nutrition - Ensure Plus 120mL 4x/day. * Hypertension - Sotalol 80mg bid, Losartan 50mg qhs. * BPH - Tamsulosin 0.4mg bid. * Depression - Venlafaxine xr 75mg daily, stable chronic usp use, GDR not recommended. Medications at Discharge Home Medications tamsulosin 0.4 mg capsule 0.4 mg PO BID prostate 02/03/20 venlafaxine 75 mg capsule,extended release 24 hr 75 mg PO DAILY MOOD 05/31/22 cyanocobalamin (vitamin B-12) 500 mcg tablet 500 mcg PO DAILY supplement 07/10/24 diphenhydramine HCl 25 mg capsule (Allergy (diphenhydramine)) 25 mg PO QHS allergies 07/22/24 Held on 07/28/24. Instructions: Ordered apixaban 5 mg tablet (Eliquis) 5 mg PO BID Blood thinner 60 days #120 tabs 07/24/24 sotalol 80 mg tablet 80 mg PO BID BP 60 days #120 tabs 07/24/24 amoxicillin 875 mg-potassium clavulanate 125 mg tablet 1 tab PO BID Antibiotic 4 days #8 tabs 07/28/24 losartan 50 mg tablet 50 mg PO QHS BP #0 tabs 07/28/24 Hospital Course Operations None Procedures None Summary of Care Provided Minutes Spent on Discharge: 15 Hospital Course: 79 year old male with below past medical history hospitalized for syncope 2/2 atrial fibrillation with rapid ventricular response, complicated by urinary tract infection, pneumonia, admitted to TCU with debility, here for rehabilitation, strengthening, prior to discharge home with . 08/05/2024 2:46AM Resident c/o inability to sleep, he has not slept for 3 days, failed Melatonin 10mg qhs, failed Doxepin 10mg qhs, Lorazepam 1mg po given. 08/05/2024 Resident unresponsive, SOUVENIR ASSEMBLER called, resident has history of CO2 retention. Discharge to [facility] ED 08/05/2024 for evaluation, admission to hospital. Weight / BMI Weight Weight: 64.728 kg Body Mass Index (BMI) 23.7 ABG / Lab / Microbiology Data 08/05/24 05:40 08/05/24 05:40 Laboratory: Laboratory Results - last 24 hr 08/05/24 05:40: WBC 10.6, RBC 4.49 L, Hgb 13.5, Hct 42.5, MCV 94.7 H, MCH 30.1, MCHC 31.8 L, RDW Std Deviation 43.7, RDW Coeff of Larry 12.7, Plt Count 304, MPV 9.7, Immature Gran % (Auto) 0.700, Neut % (Auto) 81.5 H, Lymph % (Auto) 6.8 L, Hart % (Auto) 8.5, Eos % (Auto) 1.7, Baso % (Auto) 0.8, Absolute Neuts (auto) 8.6 H, Absolute Lymphs (auto) 0.72 L, Nucleated RBC % 0, Sodium 140, Potassium 4.4, Chloride 92 L, Carbon Dioxide 37.7 H, Anion Gap 11, BUN 16, Creatinine 0.46 L, Estim Creat Clear Calc 67.27, Est GFR (MDRD) Non-Af 108, BUN/Creatinine Ratio 35.7 H, Glucose 151 H, Calcium 9.3 08/05/24 08:30: POC Glucose 163 H ABG: ABG 08/05/24 08:48 Specimen Type ART Sample Site R Radial pH 7.16 L* Bicarbonate Actual 46.5 H Total CO2 > 50 Base Excess 18 H O2 Saturation 87 L O2 % 2.0 ABG pCO2 130.6 H* ABG pO2 73 L Stephane Test N/A O2 Delivery Device Cannula Vent Mode Not entered Crit Call To/Read Back Yes Blood Gas Notified Whom Dawn Blood Gas Notified Time 08:50:58 D/C Instructions Discharge Diet: No restrictions Discharge Activity: Return to Normal Activity, May Shower and Use Walker Weight Bearing Status: Weight bearing as tolerated Call your doctor if you observe: Fever of 101 or Higher, Inability to urinate, Inability to have a bowel movement, Shortness of breath, Dizziness, Fainting spells, Swelling in the ankles, Chest pain and Uncontrolled pain DC O2, CPAP, BIPAP Needs Home O2 Discharge instructions: No Additional Instructions: Discharge to [facility] ED 08/05/2024 for evaluation, admission to hospital. Please Follow Up With: Dr Freedman Meaningful Use Info Meaningful Use Meaningful Use Diagnoses (Choose all that apply): None applicable Ischemic Stroke Statin Dosing Therapy Reference: STATIN DOSE THERAPY REFERENCE: * Patients > 75 years receive moderate or high dose statin therapy. * Patients 75 years or YOUNGER should receive HIGH intensity statin dose unless contraindicated. You will be required to document reason for non-treatment if statin daily dose does not meet guidelines. HIGH DOSE STATIN THERAPY DAILY Atorvastatin > than or = to 40 mg Rosuvastatin > than or = to 20 mg Amlodipine + Atorvastatin > than or = to 2.5/40 mg Ezetimibe + Simvastatin 10/80 mg Simvastatin 80mg Discharge Plan Admission Admit Date/Time: 07/28/24 18:49 Primary Reason for Your Visit: Debility. Attending Provider: Ezekiel Fitch Chi Primary Care Provider: Luis Medina Instructions Additional Instructions / Restrictions: Discharge to [facility] ED 08/05/2024 for evaluation, admission to hospital. Discharge Orders/Prescriptions Prescriptions: No Action cyanocobalamin (vitamin B-12) 500 mcg tablet 500 mcg PO DAILY tamsulosin 0.4 MG capsule 0.4 mg PO BID venlafaxine 75 mg capsule,extended release 24hr 75 mg PO DAILY diphenhydramine HCl [Allergy (diphenhydramine)] 25 mg capsule 25 mg PO QHS sotalol 80 mg Tablet 80 mg PO BID 60 Days Qty: 120 0RF Eliquis 5 mg Tablet 5 mg PO BID 60 Days Qty: 120 0RF amoxicillin-pot clavulanate 875-125 mg tablet 1 tab PO BID 4 Days Qty: 8 0RF losartan 50 mg Tablet 50 mg PO QHS Qty: 0 0RF Referrals / Follow Up: Luis Medina MD [Primary Care Provider] - Disposition Disposition (needs filled in before D/C Order can be placed): Acute Care Hospital [facility]
--- NOTE | 2024-08-05 09:27 | CASEMGMT ---
Social Work SW responded to PRODUCE MANAGER. Pt unresponsive to this worker and staff. Responding decided pt admit to ED. SW phoned to notify pt had a change in condition, will be transferring to the ED, and requested to present to the ED. agreed. - SW met in the ED. Provided ongoing emotional support. Educated to change in condition within this worker's scope. contacted several other family members, including brother and sister. SW provided ongoing emotional support to family. Provided ongoing medical updates from treating staff to family. Assisted with family visiting pt at bedside once appropriate. Plan: Admit to ICU - SW provided written hand off to acute SW/CM Updated appropriate IDT. Bárbara Perez ELECTRIC METER INSPECTOR CHANGE MANAGEMENT LEAD
--- NOTE | 2024-08-06 08:51 | MDS.RN ---
Information for the MDS was obtained from review of the clinical record, interview of resident, staff, and direct observation of resident?s care.
== END 2024-08-05 08:40 | disposition short-term general hospital (02) | DRG 308 ==
PROVIDERS: Admitting Provider Family Medicine Geriatric Medicine; PCP Family Medicine; Referring Provider Family Medicine Geriatric Medicine; Visit Provider Family Medicine Geriatric Medicine
DX: I48.91 Unspecified atrial fibrillation (principal); J18.9 Pneumonia, unspecified organism; J96.12 Chronic respiratory failure with hypercapnia; E87.29 Other acidosis; J96.11 Chronic respiratory failure with hypoxia; N39.0 Urinary tract infection, site not specified; I11.0 Hypertensive heart disease with heart failure; I50.9 Heart failure, unspecified; F32.A Depression, unspecified; G14 Postpolio syndrome; G47.33 Obstructive sleep apnea (adult) (pediatric); E53.8 Deficiency of other specified B group vitamins; E55.9 Vitamin D deficiency, unspecified; J98.4 Other disorders of lung; F41.9 Anxiety disorder, unspecified; Z99.81 Dependence on supplemental oxygen; N40.0 Benign prostatic hyperplasia without lower urinary tract symptoms; N28.9 Disorder of kidney and ureter, unspecified; Z79.899 Other long term (current) drug therapy; G47.00 Insomnia, unspecified
CPT/HCPCS: 36415; 36600; 74018; 80048; 82803; 82962; 85025; 94002; 94762; 97110; 97116; 97162; 97166; 97530; 97535

== ENCOUNTER 2024-08-05 08:42 | Inpatient (IN) | payer MEDICARE, SELFPAY ==
[2024-08-05] VITALS (27 sets, daily range): BP systolic 83–238; BP diastolic 50–185; PULSE 58–86; RESP 12–27; TEMP 35.9–38.4; O2SAT 84–100; BMI 26.5; BMI 23.8
--- NOTE | 2024-08-05 08:44 | EKG12_ITS ---
Test Reason : UNRESPONSIVE Blood Pressure : */* mmHG Vent. Rate : 63 BPM Atrial Rate : 63 BPM P-R Int : 166 ms QRS Dur : 58 ms QT Int : 424 ms P-R-T Axes : 59 40 66 degrees QTcB Int : 433 ms Sinus rhythm with Premature atrial complexes Possible Left atrial enlargement Low voltage QRS Early repolarization Nonspecific ST abnormality Abnormal ECG Confirmed by Matt Machado ([id number]), video editor DELMIS CORREA ([id number]) on 08/08/2024 6:50:00 AM Referred By: GORDO Confirmed By: Matt Machado
[2024-08-05] MEDS: Succinylcholine Chloride 200 MG/10 ML Vial 75 MG IV (08:46)
--- NOTE | 2024-08-05 08:48 | CT_ITS ---
PROCEDURE: BRAIN/HEAD WITHOUT CONTRAST 08/05/2024 REASON FOR EXAM: GCS 3, PINPOINT PUPILS, ON ANTICOAGULANT TECHNIQUE: Head CT without intravenous contrast. Coronal and Sagittal reconstruction series were provided. One or more dose reduction techniques were used (e.g., Automated exposure control, adjustment of the mA and/or kV according to patient size, use of iterative reconstruction technique. RADIATION DOSE SUMMARY: CTDlvol: 44.99 mGy DLP: 745.49 mGycm COMPARISON: None FINDINGS: Brain: No intracranial hemorrhage, mass effect, midline shift. Mendoza-white matter differentiation maintained without CT findings of acute infarct. No cerebral edema or sulcal effacement. CSF Spaces: Normal Sinuses/Mastoids: Clear at visualized levels Bones: Calvarium appears intact. CT/Brain/Head without Contrast IMPRESSION: NO ACUTE FINDINGS Reading Location: [facility]
--- NOTE | 2024-08-05 08:55 | EX.ED.DYSGE1 ---
HPI History of Present Illness Chief Complaint: Unresponsive Detail of Chief Complaint: Patient arrived unresponsive from TCU. Informant: other (Surgical Instrument Repair Specialist and nurse from TCU) Onset/Context/Timing Onset: Hours Context: Sudden Onset Timing: Continuous Quality: GCS 3 Location: Not applicable Current Severity: Severe Maximum Severity: Severe Worsened by: Unknown, could be due to Ativan that was administered at 0300 Relieved by: Nothing Associated Symptoms Associated Symptoms: Patient with pinpoint pupils Narrative Narrative: Patient is a 79-year-old male. He was admitted to [facility] on July 22 for dizziness/syncope. 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 He also was noted to have PSVT versus atrial fibrillation with rapid response treated with sotalol. Reading Dr. Machado note patient was diagnosed with atrial fibrillation with RVR. He agreed with sotalol. Patient had an echo on July 23 which revealed ejection fraction 55%. Pulmonary arterial systolic pressure was 35. He was admitted on July 28 for debility. Review of the recent labs indicate patient has hypercapnia. He has history of depression, claustrophobia, anxiety, alcohol use, postpolio syndrome, he is BiPAP dependent, history of congestive heart failure, on chronic oxygen at home. I was informed the patient received a dose of Ativan, 1 mg at 0300 for insomnia. He has not slept well for the past couple of days. Patient does have history of obstructive sleep apnea. He has a trilogy device which he has not been using. This probably contributed to his hypercapnia. Prior similar symptoms: No Recent Illness/Hospitalization: Yes [facility] Medical History 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 Wears glasses Cancer Depression Claustrophobia Anxiety Alcohol use Redness of skin Uses crutches Arthritis Bladder disease Back pain History of edema History of diverticulitis Post-polio syndrome Non-smoker BiPAP (biphasic positive airway pressure) dependence History of CHF (congestive heart failure) On home oxygen therapy History of pain when walking History of stress test History of echocardiogram Chronic respiratory failure with hypoxia and hypercapnia On mechanically assisted ventilation Post-poliomyelitis syndrome Acute on chronic respiratory failure with hypoxia and hypercapnia Hypertension Lumbar radicular pain Degenerative scoliosis Scoliosis Segmental dysfunction of thoracic region Home Medications ?Medication ?Instructions ?Recorded ?Last Taken ?Type tamsulosin 0.4 mg capsule 0.4 mg PO BID prostate 02/03/20 07/28/24 History venlafaxine 75 mg capsule,extended 75 mg PO DAILY MOOD 05/31/22 07/28/24 History release 24 hr cyanocobalamin (vitamin B-12) 500 500 mcg PO DAILY supplement 07/10/24 07/28/24 History mcg tablet diphenhydramine HCl 25 mg capsule 25 mg PO QHS allergies 07/22/24 07/21/24 History (Allergy (diphenhydramine)) Held on 07/28/24. Instructions: MD Ordered apixaban 5 mg tablet (Eliquis) 5 mg PO BID Blood thinner 60 days 07/24/24 07/28/24 Rx #120 tabs sotalol 80 mg tablet 80 mg PO BID BP 60 days #120 tabs 07/24/24 07/28/24 Rx amoxicillin 875 mg-potassium 1 tab PO BID Antibiotic 4 days #8 07/28/24 Unknown Rx clavulanate 125 mg tablet tabs losartan 50 mg tablet 50 mg PO QHS BP #0 tabs 07/28/24 Unknown Rx Allergy/AdvReac Type Severity Reaction Status Date / Time metronidazole (From Flagyl) AdvReac Nausea/Vom/ Verified 07/22/24 12:52 Diarrhea Family History Father Myocardial infarction Heart disease Mother Shy-Drager syndrome Other CVA (cerebral vascular accident) Surgical History History of selective injection of anesthetic agent around lumbar nerve root Hx of lithotripsy History of cardiac catheterization Hx of cystoscopy H/O adenoidectomy History of uvulectomy Hip fracture, right History of open reduction and internal fixation (ORIF) procedure Right tibial fracture H/O spinal fusion Social History household members: spouse housing: house Smoking Status: Never smoker substance use type: does not use ROS ROS ED Review of Systems ROS Unobtainable: due to mental status EXAM Physical Exam Const Vital Signs: 08/05/24 08:43 08/05/24 08:46 08/05/24 08:49 Temperature 97.9 F Temperature Source Temporal Pulse Rate 86 Respiratory Rate 27 H Respiratory Depth Respiratory Pattern Grunting Blood Pressure Blood Pressure Mean Pulse Ox 94 Oxygen Delivery Method Nasal Cannula Oxygen Flow Rate (L/min) 2 Fraction of Inspired Oxygen (FIO2) 30 08/05/24 08:52 08/05/24 08:53 08/05/24 09:13 Temperature Temperature Source Core Pulse Rate 63 59 L Respiratory Rate 18 18 Respiratory Depth Shallow Respiratory Pattern Gasping Normal Blood Pressure 126/102 H Blood Pressure Mean 110 Pulse Ox 97 97 96 Oxygen Delivery Method Mechanical Ventilator Mechanical Ventilator Oxygen Flow Rate (L/min) Fraction of Inspired Oxygen (FIO2) 30 30 08/05/24 09:30 Temperature Temperature Source Pulse Rate 62 Respiratory Rate 18 Respiratory Depth Respiratory Pattern Blood Pressure 118/91 H Blood Pressure Mean 100 Pulse Ox 96 Oxygen Delivery Method Mechanical Ventilator Oxygen Flow Rate (L/min) Fraction of Inspired Oxygen (FIO2) Positive well nourished and well developed Constitutional Narrative: Patient is tachypneic and has Akarpine like respiratory effort. General Appearance ED: well developed, NAD and other; Negative for cyanotic, diaphoretic or pallor HEENT Reports dry mucous membranes HEENT Narrative: Head is atraumatic normocephalic. Ears normal. Nares patent. Posterior pharynx is normal Mouth ED: Yes dry mucous membranes Mouth: dry mucous membranes Eyes PERRL and EOMs intact bilaterally Eyes Narrative: Pupils are pinpoint. He does not have a corneal reflex. General Eye ED: Yes scleral icterus; Negative for pale conjunctiva Neck no lymphadenopathy, supple and no JVD Chest Wall inspection of chest normal and palpation of chest normal Resp No normal respiratory effort and No clear to auscultation bilaterally Auscultation: rales bilateral base and diminished lung sounds diffuse Cardio regular rhythm and no murmurs Rhythm: abnormal rhythm irregularly irregular GI normal to inspection, nondistended, normoactive bowel sounds, non-tender, non-distended and no masses; Negative for hepatosplenomegaly GI Narrative: There is a reducible umbilical hernia. Extremity Extremity Narrative: There is no clubbing or cyanosis. Neuro Neuro Narrative: GCS is 3. Patient does not have any response to noxious stimuli (pressure on the supraorbital nerve) Skin no rashes or lesions noted and no wounds General Skin Exam: Negative for jaundice or pallor MDM MDM MDM Narrative Medical decision making narrative: With pinpoint pupils unresponsiveness and the fact that he is on anticoagulant need to entertain possibility of intracranial hemorrhage or other intracranial pathology. With history of hypercapnia will obtain ABG to assess his CO2 and pH. With patient having a GCS of 3 he is not a candidate for BiPAP. He was prepped for orotracheal ovation. Since he has GSF 3 he received 75 mg succinylcholine. He was not placed on sedation medication. Will obtain chest x-ray to confirm ET placement/position. Appropriate blood work was ordered. He will require admission to ICU. History & Record Review Discussion w/independent historian: Family Additional record(s) reviewed:: Prior inpatient record and Prior labs Lab Data Attestation: I reviewed the patient's lab results. Lab results narrative: CBC is unremarkable and unchanged from prior. This would not explain his altered mental status. Labs: Laboratory Results - last 24 hr 08/05/24 08/05/24 08:46 08:49 WBC 10.1 RBC 4.70 Hgb 14.3 Hct 45.0 MCV 95.7 H MCH 30.4 MCHC 31.8 L RDW Std Deviation 45.1 H RDW Coeff of Larry 12.7 Plt Count 288 MPV 9.2 Immature Gran % (Auto) 0.900 Neut % (Auto) 86.1 H Lymph % (Auto) 5.1 L Beauregard % (Auto) 6.6 Eos % (Auto) 0.7 Baso % (Auto) 0.6 Absolute Neuts (auto) 8.7 H Absolute Lymphs (auto) 0.51 L Nucleated RBC % 0 Sodium 139 Potassium 4.6 Chloride 92 L Carbon Dioxide 41.4 H Anion Gap 7 BUN 18 Creatinine 0.55 L Estim Creat Clear Calc 67.27 Est GFR (MDRD) Non-Af 102 BUN/Creatinine Ratio 31.8 H Glucose 175 H Lactic Acid < 1.0 Calcium 9.5 Total Bilirubin 0.31 AST 15 ALT 16 Alkaline Phosphatase 118 Total Protein 7.1 Albumin 4.3 Globulin 2.8 Albumin/Globulin Ratio 1.6 ABG Data Attestation: I personally reviewed and interpreted this ABG as follows: Interpretation: ABG reveals a pH of 7.15, pCO2 130.6, PO2 72.6, bicarb of 46.5, base excess 17.8 with an 86.5% saturation. This is close to what the pulse ox was reading. ABG is consistent with acute on chronic CO2 retention/respiratory acidosis with secondary metabolic alkalosis. Radiography Chest X-Ray - ED: 1 View (Single view portable chest x-ray reveals scoliosis with loss of lung volume on the right small pleural effusion on the left. Endotracheal tube is in proper position. OG is noted. This is unchanged from July 26, 2024.), Read by ED Physician and - (Single view KUB reveals proper position of the orogastric tube.) Diagnostic Testing: Clinical Impression(s) from Imaging Studies Chest X-Ray 08/05/24 09:15 IMPRESSION: The tip of the endotracheal tube is at 3.6 cm proximal to the gail. Orogastric tube is seen with the tip in the stomach. Stable appearance of the lungs as well as the marked dextroscoliosis. Reading Location: [facility] KUB X-Ray 08/05/24 09:15 IMPRESSION: The tip of the nasogastric tube is in the distal portion of the stomach. Reading Location: [facility] CT of the head without contrast reveals no evidence of subdural hematoma, epidural hematoma, subarachnoid hemorrhage or intraparenchymal bleed. In light of this hospitalist was paged for admission to ICU. Rhythm Strip Rhythm Strip: Sinus Rhythm Rate: 86 Ectopy: None Management Discussion w/another healthcare provider: Hospitalist (Case discussed with Dr. Familia Leung. Patient be admitted to ICU. He request that I contact Dr. Monsivais to notify him of the patient) Treatment and Re-Evaluation :: Nurse informed me at 09 with patient starting to move. To help facilitate placement of OG, Ruma he will receive 40 mg of propofol since his blood pressure is stable. Procedures Intubations Intubation Method: orotracheal Intubation Verification: Positive color change and Bilateral breath sounds confirmed Intubation Complications: no complications Critical Care Time Critical Care Time: Yes Critical care time (excluding procedures): 30-74 minutes (32), Including time spent: (History, physical, documentation, review of recent admission, TCU admission and progress notes), Discussing w/Patient &/or Family/Regional Project Manager (Discussion with ) and - (Discussion with TCU nurse, harvest crew supervisor) Discharge Plan Triage Chief Complaint: Unresponsive ED Provider: Derrick Dawn Dx/Rx/DC Orders Clinical Impression: Acute on chronic respiratory failure with hypoxia and hypercapnia, Obstructive sleep apnea, Restrictive lung disease, Hyperlipemia, Central sleep apnea, Post-poliomyelitis syndrome Prescriptions: No Action cyanocobalamin (vitamin B-12) 500 mcg tablet 500 mcg PO DAILY tamsulosin 0.4 MG capsule 0.4 mg PO BID venlafaxine 75 mg capsule,extended release 24hr 75 mg PO DAILY diphenhydramine HCl [Allergy (diphenhydramine)] 25 mg capsule 25 mg PO QHS sotalol 80 mg Tablet 80 mg PO BID 60 Days Qty: 120 0RF Eliquis 5 mg Tablet 5 mg PO BID 60 Days Qty: 120 0RF amoxicillin-pot clavulanate 875-125 mg tablet 1 tab PO BID 4 Days Qty: 8 0RF losartan 50 mg Tablet 50 mg PO QHS Qty: 0 0RF Primary Care Provider: Luis Medina Referrals: Luis Medina MD [Primary Care Provider] - Print Language: Portuguese Disposition Disposition: Acute Care Hospital [facility] [place]
--- NOTE | 2024-08-05 08:57 | ED.RN ---
PT BROUGHT FROM TCU FOR UNRESPONSIVE AFTER RR TEAM CALLED
[2024-08-05 09:04] LABS: Absolute Lymphocyte Count 0.51 X10^3/uL (0.83-4.51); Absolute Neutrophil Count 8.7 X10^3/uL (2.0-7.7); Basophil# 0.06 X10^3/uL; Basophil% 0.6 % (0-1); Eosinophil# 0.07 X10^3/uL; Eosinophils% 0.7 % (0-5); Hemoglobin 14.3 g/dL (13.0-16.5); Lymphocyte # 0.51 X10^3/ul (0.83-4.51); Lymphocyte % 5.1 % (19-41); Mean Corp Hgb Conc 31.8 g/dL (32-36); Mean Corpuscular Hgb 30.4 pg (27.0-32.0); Mean Corpuscular Volume 95.7 fL (80-94); Mean Platelet Vol. 9.2 fl (6.2-12.0); Monocyte# 0.66 X10^3/uL; Monocyte% 6.6 % (0-10); NRBC Flagged by Analyzer 0 % (0-5); Neutrophil # 8.68 X10^3/uL (2.7-7.7); Neutrophil % 86.1 % (47-70); POSITIVE DIFFERENTIAL YES; Platelet Count 288 K/mm3 (150-450); RBC Distribution Width CV 12.7 % (11.6-14.6); RBC Distribution Width SD 45.1 fl (35.1-43.9); White Blood Count 10.1 K/mm3 (4.4-11.0)
[2024-08-05] MEDS: Propofol 200 MG/20 ML Vial 40 MG IV BOLUS ×2 (09:06→11:11)
--- NOTE | 2024-08-05 09:15 | RAD_ITS ---
PROCEDURE: ABDOMEN SINGLE VIEW 08/05/2024 REASON FOR EXAM: NG PLACEMENT TECHNIQUE: Single view abdomen. COMPARISON: None FINDINGS: The tip of the nasogastric tube is in the distal portion of the stomach. Bones: Levoscoliosis of the thoracic spine. Other: RAD/Abdomen Single View IMPRESSION: The tip of the nasogastric tube is in the distal portion of the stomach. Reading Location: [facility]
--- NOTE | 2024-08-05 09:15 | RAD_ITS ---
PROCEDURE: CHEST 1 VIEW (PORTABLE) 08/05/2024 REASON FOR EXAM: RESPIRATORY DISTRESS Endotracheal tube and nasogastric tube placement. TECHNIQUE: Frontal view of the chest. COMPARISON: Comparison is made with prior study dated July 26, 2024. FINDINGS: Hardware: An endotracheal tube is in-situ with the tip at 3.6 cm proximal to the gail. A nasogastric tube is seen with the tip in the body of the stomach. Heart: Cardiac and mediastinal contours are stable. Lungs: Marked degree of dextroconvex scoliosis of the thoracic spine with the loss of volume in the right hemithorax. Stable mild increased markings at the right lung base. Stable mild increased markings at the left lung base. Bones: Marked degree of dextroconvex scoliosis of the thoracic spine. Other: RAD/Chest 1 View (Portable) IMPRESSION: The tip of the endotracheal tube is at 3.6 cm proximal to the gail. Orogastr ic tube is seen with the tip in the stomach. Stable appearance of the lungs as well as the marked dextroscoliosis. Reading Location: [place] [id number]
[2024-08-05 09:37] LABS: ALB/GLOB Ratio 1.6 RATIO (0.9-2.4); AST(SGOT) 15 U/L (<=37); Alanine Aminotransfer ALT/SGPT 16 U/L (<=46); Albumin, Serum 4.3 g/dL (3.4-4.8); Alkaline Phosphatase 118 U/L (40-129); Anion Gap 7 (5-15); BUN 18 mg/dL (4-19); BUN/Creat Ratio 31.8 RATIO (10-20); Calcium,Total 9.5 mg/dL (7.6-11.0); Carbon Dioxide 41.4 mmol/L (21.0-32.0); Chloride 92 mmol/L (98-108); Creatinine, Serum 0.55 mg/dL (0.70-1.20); EST Glomerular Filtration Rate 102 (>60); Estimated Creatinine Clearance 67.27 ml/min (50-250); Globulin 2.8 g/dL (2.2-4.2); Glucose 175 mg/dL (70-99); Potassium 4.6 mmol/L (3.3-5.1); Protein, Total 7.1 g/dL (5.9-8.4); Sodium Level 139 mmol/L (133-145); Total Bilirubin 0.31 mg/dL (0.00-1.30)
[2024-08-05 09:38] LABS: Lactic Acid < 1.0 mmol/L (0.0-2.0)
--- NOTE | 2024-08-05 10:23 | PCM.HP.STD ---
HPI - General General Date of Admission: 08/05/24 Date of Service: 08/05/24 Chief Complaint: Altered mental status HPI Narrative BERNARDA JOSEPH, is a 79 M with past medical history significant for polio with significant complications including severe scoliokyphosis and restrictive lung disease with recent prolonged hospitalization following admission for cystitis and syncopal episode. Patient was discharged to the transitional care unit to continue with recovery. Patient was apparently found barely responsive on the morning of his admission was at the transitional care unit rapid response was called patient was transferred to the ED. Per documentation from the TCU patient had complained of not being able to sleep he did receive lorazepam and apparently did not wear his nightly BiPAP.Workup in the emergency department did show significant hypercarbia with PCO2 of 131. Patient was intubated and subsequently admitted to the intensive care unit [facility] Medical History 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 Wears glasses Cancer Depression Claustrophobia Anxiety Alcohol use Redness of skin Uses crutches Arthritis Bladder disease Back pain History of edema History of diverticulitis Post-polio syndrome Non-smoker BiPAP (biphasic positive airway pressure) dependence History of CHF (congestive heart failure) On home oxygen therapy History of pain when walking History of stress test History of echocardiogram Chronic respiratory failure with hypoxia and hypercapnia On mechanically assisted ventilation Post-poliomyelitis syndrome Acute on chronic respiratory failure with hypoxia and hypercapnia Hypertension Lumbar radicular pain Degenerative scoliosis Scoliosis Segmental dysfunction of thoracic region Home Medications ?Medication ?Instructions ?Recorded ?Last Taken ?Type tamsulosin 0.4 mg capsule 0.4 mg PO BID prostate 02/03/20 07/28/24 History venlafaxine 75 mg capsule,extended 75 mg PO DAILY MOOD 05/31/22 07/28/24 History release 24 hr cyanocobalamin (vitamin B-12) 500 500 mcg PO DAILY supplement 07/10/24 07/28/24 History mcg tablet diphenhydramine HCl 25 mg capsule 25 mg PO QHS allergies 07/22/24 07/21/24 History (Allergy (diphenhydramine)) Held on 07/28/24. Instructions: Ordered apixaban 5 mg tablet (Eliquis) 5 mg PO BID Blood thinner 60 days 07/24/24 07/28/24 Rx #120 tabs sotalol 80 mg tablet 80 mg PO BID BP 60 days #120 tabs 07/24/24 07/28/24 Rx amoxicillin 875 mg-potassium 1 tab PO BID Antibiotic 4 days #8 07/28/24 Unknown Rx clavulanate 125 mg tablet tabs losartan 50 mg tablet 50 mg PO QHS BP #0 tabs 07/28/24 Unknown Rx Allergy/AdvReac Type Severity Reaction Status Date / Time metronidazole (From Flagyl) AdvReac Nausea/Vom/ Verified 07/22/24 12:52 Diarrhea Family History Father Myocardial infarction Heart disease Mother Shy-Drager syndrome Other CVA (cerebral vascular accident) Surgical History History of selective injection of anesthetic agent around lumbar nerve root Hx of lithotripsy History of cardiac catheterization Hx of cystoscopy H/O adenoidectomy History of uvulectomy Hip fracture, right History of open reduction and internal fixation (ORIF) procedure Right tibial fracture H/O spinal fusion Social History household members: spouse housing: house Smoking Status: Never smoker substance use type: does not use ROS ROS Narrative Unable to obtain patient on the vent Vital Signs Vital Signs Vital Signs: 08/05/24 08:43 08/05/24 08:46 08/05/24 08:49 Temperature 97.9 F Temperature Source Temporal Pulse Rate 86 Respiratory Rate 27 H Respiratory Depth Respiratory Pattern Grunting Blood Pressure Blood Pressure Mean Pulse Ox 94 Oxygen Delivery Method Nasal Cannula Oxygen Flow Rate (L/min) 2 Fraction of Inspired Oxygen (FIO2) 30 08/05/24 08:52 08/05/24 08:53 08/05/24 09:13 Temperature Temperature Source Core Pulse Rate 63 59 L Respiratory Rate 18 18 Respiratory Depth Shallow Respiratory Pattern Gasping Normal Blood Pressure 126/102 H Blood Pressure Mean 110 Pulse Ox 97 97 96 Oxygen Delivery Method Mechanical Ventilator Mechanical Ventilator Oxygen Flow Rate (L/min) Fraction of Inspired Oxygen (FIO2) 30 30 08/05/24 09:30 Temperature Temperature Source Pulse Rate 62 Respiratory Rate 18 Respiratory Depth Respiratory Pattern Blood Pressure 118/91 H Blood Pressure Mean 100 Pulse Ox 96 Oxygen Delivery Method Mechanical Ventilator Oxygen Flow Rate (L/min) Fraction of Inspired Oxygen (FIO2) Weight Weight: 72.4 kg Body Mass Index (BMI) 26.5 Physical Exam Narrative GENERAL: Sedated on the vent HEENT: Atraumatic; normocephalic EYES; Anicteric, Normal Conjunctiva NECK; supple, normal thyroid, RESPIRATORY: Diminished to auscultation CARDIOVASCULAR: Regular S1 S2, GI: soft, normoactive bowel sounds, : No Renal angle tenderness; EXTREMITIES: No edema, no clubbing, MUSCULOSKELETAL: scolikyphosis NEURO: Sedated on the vent SKIN: No Rash Results Lab / Micro Data 08/05/24 08:49 08/05/24 08:49 Labs: Laboratory Results - last 24 hr 08/05/24 08:46: Lactic Acid < 1.0 08/05/24 08:49: WBC 10.1, RBC 4.70, Hgb 14.3, Hct 45.0, MCV 95.7 H, MCH 30.4, MCHC 31.8 L, RDW Std Deviation 45.1 H, RDW Coeff of Larry 12.7, Plt Count 288, MPV 9.2, Immature Gran % (Auto) 0.900, Neut % (Auto) 86.1 H, Lymph % (Auto) 5.1 L, Centre % (Auto) 6.6, Eos % (Auto) 0.7, Baso % (Auto) 0.6, Absolute Neuts (auto) 8.7 H, Absolute Lymphs (auto) 0.51 L, Nucleated RBC % 0, Sodium 139, Potassium 4.6, Chloride 92 L, Carbon Dioxide 41.4 H, Anion Gap 7, BUN 18, Creatinine 0.55 L, Estim Creat Clear Calc 67.27, Est GFR (MDRD) Non-Af 102, BUN/Creatinine Ratio 31.8 H, Glucose 175 H, Calcium 9.5, Total Bilirubin 0.31, AST 15, ALT 16, Alkaline Phosphatase 118, Total Protein 7.1, Albumin 4.3, Globulin 2.8, Albumin/Globulin Ratio 1.6 Rhythm Strip Rhythm Strip: Sinus Rhythm Rate: 86 Ectopy: None Imaging Radiology Impression Chest X-Ray 08/05/24 09:15 IMPRESSION: The tip of the endotracheal tube is at 3.6 cm proximal to the gail. Orogastric tube is seen with the tip in the stomach. Stable appearance of the lungs as well as the marked dextroscoliosis. Reading Location: [facility]--1 KUB X-Ray 08/05/24 09:15 IMPRESSION: The tip of the nasogastric tube is in the distal portion of the stomach. Reading Location: [facility]--1 Assessment & Plan Assessment/Plan (1) Acute on chronic respiratory failure with hypoxia and hypercapnia: (2) Restrictive lung disease: PLAN: Plan Patient is a 79-year-old gentleman admitted with altered mental status 1. Acute metabolic encephalopathy ? Secondary to acute hypoxic and hypercapnic respiratory failure. Patient was intubated in the emergency department admitted to the intensive care unit repeat ABGs ordered for initial response to intubation 2. Acute hypercapnic and hypoxic respiratory failure ? Patient was intubated in the emergency department subsequently admitted to the intensive care unit. Initial vent settings written in consultation placed to pulmonary/intensive medicine for ICU management. Repeat checks x-ray ordered for tube placement as well as NG tube position 3. Recently diagnosed A-fib with RVR ? Patient was discharged on sotalol as well as systemic anticoagulation with apixaban. With the patient being on the vent apixaban held 4. 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 Patient has significant complications including restrictive lung disease 5. Essential hypertension ? Patient blood pressure prior to admission was relatively low 83/56. Antihypertensive subsequently held. Admitted to the intensive care unit for close monitoring 6. Depression ? Patient is on venlafaxine, plan is to resume once of the event 7.. Central sleep apnea ? Patient uses BiPAP at night will resume when patient is extubated 8.. Chronic hypoxic and hypercapnic respiratory failure ? Patient is on continuous home oxygen during the day 9. BPH with lower urinary obstructive symptoms - Patient treated with tamsulosin, will resume following extubation 10. DVT prophylaxis ? On enoxaparin Advance planning; had a discussion with patient's family ( and brother) regarding advanced directives as well as CODE STATUS. Did explain the various scenarios involved ( FULL CODE, DNR CCA, DNR CCA with no intubation, and DNR CC and what each meant) patient is already intubated. Patient's did express a desire for CPR in an event of cardiopulmonary arrest. Order placed. Time spent on discussion 16 minutes. Charges/Coding Multi Select Codes Visit Charges Visit Charges: 25831 Init [address]' Procedures Procedures: 72104 Advncd Care Plan 30 Min
--- NOTE | 2024-08-05 10:24 | ED.RN ---
DR CARO MADE AWARE OF A FEW HIGH BP'S BEFORE AND FOLLOWING CT SCAN. PT WAS AGITATED AT CT AND GIVEN 40MG OF PROPOFOL BY VERBAL ORDER. DR CARO PUTTING IN FOR FENTANYL DRIP
[2024-08-05 10:27] LABS: Allen Test Positive; Base Excess 14 mmol/L (-2 to +2); Bicarbonate 34.4 mmol/L (22-26); Blood Gas Specimen Type ART; Mode AC; O2 Delivery Device Adult Vent; PEEP 5; PO2 135 mmHG (75-100); SITE R Radial; SO2 100 % (95-99); Time Given 10:24:54; Total Carbon Dioxide 35 mmol/L; pCO2 31.3 mmHg (35-45); pH 7.65 (7.35-7.45)
[2024-08-05] MEDS: fentaNYL 100 MCG/2 ML Ampul 50 MCG IV (10:28)
[2024-08-05] MEDS: fentaNYL drip 100 ML 5 MCG CONT INF (10:36)
--- NOTE | 2024-08-05 11:08 | ED.RN ---
titrated fentanyl drip to 75 mcg before transport to the icu. pt able to respond to yes and no with pain question and bp elevating again
[2024-08-05] MEDS: Propofol 10MG/Ml 1,000 MG/100 ML Bottle 4.3 MG CONT INF (11:30)
--- NOTE | 2024-08-05 11:35 | EX.PCM.CONCC ---
Assessment & Plan Assessment/Plan (1) Acute on chronic respiratory failure with hypoxia and hypercapnia: PLAN: Plan RECOMMENDATIONS: 1. Continue assist-control mode mechanical ventilation. Wean FiO2 and PEEP as tolerated. 2. Obtain follow-up ABG. 3. Continue fentanyl and propofol for sedation. 4. Continue Lovenox and Protonix for ICU prophylaxis. 5. Plan for spontaneous awakening and breathing trials beginning tomorrow. IMPRESSIONS: 1. Acute on chronic combined respiratory failure Most likely secondary to noncompliance with prescribed PAP therapy coupled with administration of benzodiazepine, leading to CO2 narcosis and need for intubation. The patient has a known medical history significant for chronic respiratory failure with hypoxemia and hypercapnia in the setting of restrictive lung disease due to excessive kyphoscoliosis and history of poliomyelitis. At his baseline, he is prescribed an astral noninvasive ventilator. There were no significant infiltrates or consolidation on chest x-ray to suggest pneumonia. Plan to continue assist-control mode of mechanical ventilation. Wean FiO2 and PEEP as tolerated. Continue fentanyl and propofol for sedation. Plan for paired spontaneous awakening and breathing trials beginning tomorrow. 2. Metabolic encephalopathy Related to acute CO2 retention in the setting of noncompliance with PAP therapy and administration of benzodiazepines. CT head was unremarkable. Continue supportive care as noted above. 3. History of syncope secondary to atrial fibrillation with RVR/hypertension/BPH/sleep apnea Complicates care, management, recovery and prognosis. Continue supportive measures as noted above. TIME: 34 minutes of critical care time, independent of procedures, was spent addressing the patient's acute on chronic combined respiratory failure, metabolic encephalopathy, review of all data and collaboration with the care team. HPI Consult Data Date of Consult: 08/05/24 HPI Narrative Reason for Consultation: Respiratory failure HPI Narrative: The patient is a 79-year-old male, with a history as outlined below, who presented to the emergency department from the transitional care unit in an unresponsive state. The patient has a known medical history significant for chronic respiratory failure with hypoxemia and hypercapnia in the setting of restrictive lung disease due to excessive kyphoscoliosis and history of poliomyelitis. The patient was last seen in the pulmonary medicine office in June 2024. The patient had been hospitalized in July 2024 with syncope related to atrial fibrillation with RVR. He was subsequently discharged to the transitional care unit on July 28 in stable condition. According to TCU documentation, the patient was complaining of an inability to sleep during the manufacturing engineering technician hours of August 05, for which she was given lorazepam 1 mg p.o. A short time later, the patient was found unresponsive and a rapid response team was initiated. He was subsequently taken to the emergency department for evaluation. According to respiratory therapy report, the patient has been noncompliant with his prescribed PAP therapy over the course of the last several days. At his baseline, the patient is maintained on astral noninvasive ventilator. On presentation to the emergency department, the patient was noted to be afebrile and hemodynamically stable. Laboratory evaluation revealed a normal white blood cell count. Arterial blood gas was notable for a pH of 7.16 with a PCO2 of 130 and pO2 of 73. Chemistry profile was notable for a chronically elevated bicarbonate at 41. Given that the patient was obtunded on arrival, the patient was emergently intubated. He was subsequently admitted to the medical intensive care unit for further management. [facility] Medical History 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 Wears glasses Cancer Depression Claustrophobia Anxiety Alcohol use Redness of skin Uses crutches Arthritis Bladder disease Back pain History of edema History of diverticulitis Post-polio syndrome Non-smoker BiPAP (biphasic positive airway pressure) dependence History of CHF (congestive heart failure) On home oxygen therapy History of pain when walking History of stress test History of echocardiogram Chronic respiratory failure with hypoxia and hypercapnia On mechanically assisted ventilation Post-poliomyelitis syndrome Acute on chronic respiratory failure with hypoxia and hypercapnia Hypertension Lumbar radicular pain Degenerative scoliosis Scoliosis Segmental dysfunction of thoracic region Home Medications ?Medication ?Instructions ?Recorded ?Last Taken ?Type tamsulosin 0.4 mg capsule 0.4 mg PO BID prostate 02/03/20 07/28/24 History venlafaxine 75 mg capsule,extended 75 mg PO DAILY MOOD 05/31/22 07/28/24 History release 24 hr cyanocobalamin (vitamin B-12) 500 500 mcg PO DAILY supplement 07/10/24 07/28/24 History mcg tablet diphenhydramine HCl 25 mg capsule 25 mg PO QHS allergies 07/22/24 07/21/24 History (Allergy (diphenhydramine)) Held on 07/28/24. Instructions: Ordered apixaban 5 mg tablet (Eliquis) 5 mg PO BID Blood thinner 60 days 07/24/24 07/28/24 Rx #120 tabs sotalol 80 mg tablet 80 mg PO BID BP 60 days #120 tabs 07/24/24 07/28/24 Rx amoxicillin 875 mg-potassium 1 tab PO BID Antibiotic 4 days #8 07/28/24 Unknown Rx clavulanate 125 mg tablet tabs losartan 50 mg tablet 50 mg PO QHS BP #0 tabs 07/28/24 Unknown Rx Allergy/AdvReac Type Severity Reaction Status Date / Time metronidazole (From Flagyl) AdvReac Nausea/Vom/ Verified 07/22/24 12:52 Diarrhea Family History Father Myocardial infarction Heart disease Mother Shy-Drager syndrome Other CVA (cerebral vascular accident) Surgical History History of selective injection of anesthetic agent around lumbar nerve root Hx of lithotripsy History of cardiac catheterization Hx of cystoscopy H/O adenoidectomy History of uvulectomy Hip fracture, right History of open reduction and internal fixation (ORIF) procedure Right tibial fracture H/O spinal fusion Social History household members: spouse housing: house Smoking Status: Never smoker substance use type: does not use ROS Review of Systems ROS Unobtainable: due to endotracheal tube and due to mental status Physical Exam Const Constitutional Narrative: Intubated, sedated and mechanically ventilated. HEENT normocephalic and head/scalp atraumatic Mouth: endotracheal tube in place Eyes PERRL, EOMs intact bilaterally and conjunctivae normal Neck supple General: trachea midline Chest inspection of chest normal Resp normal respiratory effort Auscultation: rhonchi Cardio regular rate and regular rhythm GI normal to inspection, nondistended, normoactive bowel sounds Extremity no clubbing, cyanosis or edema Skin no rashes or lesions noted Neuro Sensorium / Orientation: sedated on vent Lab / Micro Data 08/05/24 08:49 08/05/24 08:49 Labs: Laboratory Results - last 24 hr 08/05/24 08:46: Lactic Acid < 1.0 08/05/24 08:49: WBC 10.1, RBC 4.70, Hgb 14.3, Hct 45.0, MCV 95.7 H, MCH 30.4, MCHC 31.8 L, RDW Std Deviation 45.1 H, RDW Coeff of Larry 12.7, Plt Count 288, MPV 9.2, Immature Gran % (Auto) 0.900, Neut % (Auto) 86.1 H, Lymph % (Auto) 5.1 L, [place] % (Auto) 6.6, Eos % (Auto) 0.7, Baso % (Auto) 0.6, Absolute Neuts (auto) 8.7 H, Absolute Lymphs (auto) 0.51 L, Nucleated RBC % 0, Sodium 139, Potassium 4.6, Chloride 92 L, Carbon Dioxide 41.4 H, Anion Gap 7, BUN 18, Creatinine 0.55 L, Estim Creat Clear Calc 67.27, Est GFR (MDRD) Non-Af 102, BUN/Creatinine Ratio 31.8 H, Glucose 175 H, Calcium 9.5, Total Bilirubin 0.31, AST 15, ALT 16, Alkaline Phosphatase 118, Total Protein 7.1, Albumin 4.3, Globulin 2.8, Albumin/Globulin Ratio 1.6 ABG Data ABG results: ABG 08/05/24 10:23 Specimen Type ART Sample Site R Radial pH 7.65 H* Bicarbonate Actual 34.4 H Total CO2 35 Base Excess 14 H O2 Saturation 100 H O2 % 30.0 ABG pCO2 31.3 L ABG pO2 135 H Stephane Test Positive Respiration Rate 450 O2 Delivery Device Adult Vent Vent Mode AC Tidal Volume 18.0 POC PEEP 5 Crit Call To/Read Back Yes Blood Gas Notified Whom soria Blood Gas Notified Time 10:24:54 Rhythm Strip Rhythm Strip: Sinus Rhythm Rate: 86 Ectopy: None Imaging Radiology Impression Brain CT 08/05/24 08:48 IMPRESSION: NO ACUTE FINDINGS [facility] Chest X-Ray 08/05/24 09:15 IMPRESSION: The tip of the endotracheal tube is at 3.6 cm proximal to the gail. Orogastric tube is seen with the tip in the stomach. Stable appearance of the lungs as well as the marked dextroscoliosis. Reading Location: [facility]-1 KUB X-Ray 08/05/24 09:15 IMPRESSION: The tip of the nasogastric tube is in the distal portion of the stomach. Reading Location: [facility]--1 Charges/Coding Procedures Hospitalists Procedures: [id number] Critical Care 1st Hr
[2024-08-05 11:56] LABS: Allen Test Positive; Base Excess 19 mmol/L (-2 to +2); Bicarbonate 41.5 mmol/L (22-26); Blood Gas Specimen Type ART; Mode AC; O2 Delivery Device Adult Vent; PEEP 5; PO2 101 mmHG (75-100); RR 12; SITE R Radial; SO2 99 % (95-99); Total Carbon Dioxide 43 mmol/L; pCO2 46.5 mmHg (35-45); pH 7.56 (7.35-7.45)
[2024-08-05] MEDS: Pantoprazole Sodium 40 MG in 0.9% Normal Saline (100mL MB+) 100 ML 330 MG IV (12:44)
[2024-08-05] MEDS: 0.9% Normal Saline (1000mL) 1,000 ML 75 ML IV (12:44)
[2024-08-05] MEDS: Chlorhexidine 15 ML PO ×2 (12:44→21:12)
[2024-08-05] MEDS: fentaNYL drip 100 ML 15 MCG CONT INF ×2 (17:18→23:45)
[2024-08-05] MEDS: Ipratropium/Albuterol Sulfate 3 ML AMPUL.NEB INHALATION ×2 (19:16→22:25)
[2024-08-05] MEDS: Acetaminophen 325 MG Tablet 650 MG PO (21:12)
[2024-08-06] VITALS (28 sets, daily range): BP systolic 91–184; BP diastolic 49–108; PULSE 66–124; RESP 12–26; TEMP 37–38.1; O2SAT 88–100; BMI 23.9
[2024-08-06] MEDS: 0.9% Normal Saline (1000mL) 1,000 ML 75 ML IV (02:28)
[2024-08-06] MEDS: Propofol 10MG/Ml 1,000 MG/100 ML Bottle 4.3 MG CONT INF (03:08)
[2024-08-06 03:25] LABS: Absolute Lymphocyte Count 1.12 X10^3/uL (0.83-4.51); Basophil# 0.05 X10^3/uL; Basophil% 0.4 % (0-1); Eosinophil# 0.03 X10^3/uL; Eosinophils% 0.3 % (0-5); Hematocrit 33.4 % (40-54); Hemoglobin 11.1 g/dL (13.0-16.5); Lymphocyte # 1.12 X10^3/ul (0.83-4.51); Lymphocyte % 9.6 % (19-41); Mean Corp Hgb Conc 33.2 g/dL (32-36); Mean Corpuscular Hgb 30.6 pg (27.0-32.0); Mean Platelet Vol. 9.7 fl (6.2-12.0); Monocyte# 1.39 X10^3/uL; NRBC Flagged by Analyzer 0 % (0-5); Neutrophil # 8.98 X10^3/uL (2.7-7.7); Neutrophil % 77.2 % (47-70); Platelet Count 243 K/mm3 (150-450); RBC Distribution Width CV 13.2 % (11.6-14.6); RBC Distribution Width SD 45.2 fl (35.1-43.9); Red Blood Count 3.63 M/mm3 (4.6-6.2); White Blood Count 11.6 K/mm3 (4.4-11.0)
[2024-08-06] MEDS: Ipratropium/Albuterol Sulfate 3 ML AMPUL.NEB INHALATION ×6 (03:42→23:25)
[2024-08-06 04:04] LABS: Magnesium 1.3 mg/dL (1.5-2.2)
[2024-08-06 04:06] LABS: Anion Gap 10 (5-15); BUN 24 mg/dL (4-19); BUN/Creat Ratio 33.8 RATIO (10-20); Calcium,Total 7.6 mg/dL (7.6-11.0); Chloride 101 mmol/L (98-108); Creatinine, Serum 0.72 mg/dL (0.70-1.20); EST Glomerular Filtration Rate 94 (>60); Estimated Creatinine Clearance 64.75 ml/min (50-250); Glucose 75 mg/dL (70-99); Potassium 3.3 mmol/L (3.3-5.1); Sodium Level 140 mmol/L (133-145)
[2024-08-06 06:36] LABS: RR 18
[2024-08-06] MEDS: fentaNYL drip 100 ML 15 MCG CONT INF (06:46)
--- NOTE | 2024-08-06 07:26 | PCM.PN.HOSP ---
Reason for Visit Reason for Visit: Diagnoses Acute and chronic respiratory failure with hypoxia (08/05/24) Acute and chronic respiratory failure with hypercapnia (08/05/24) Other disorders of lung (08/05/24) Subjective Subjective Patient is a 79-year-old gentleman admitted with altered mental status and assessment of Acute metabolic encephalopathy secondary to acute hypoxic and hypercapnic respiratory failure. Patient was intubated in the emergency department admitted to the intensive care unit Objective Data Objective Data Vital Signs: Vital Signs Temp Pulse Resp BP Pulse Ox O2 Del Method O2 Flow Rate 99.7 F H 87 24 H 112/77 96 Mechanical Ventilator 2 08/06/24 05:00 08/06/24 07:00 08/06/24 07:00 08/06/24 07:00 08/06/24 07:00 08/06/24 07:00 08/05/24 08:43 FiO2 24 08/06/24 07:00 Oxygen Flow Rate (L/min) 2 Oxygen Delivery Method Mechanical Ventilator Weight: 65.091 kg Body Mass Index (BMI) 23.9 Intake & Output: Intake and Output for Last 24 Hours 08/04/24 08/05/24 08/06/24 23:59 23:59 23:59 Intake Total 738.15 / 746.20 744.15 / 744.15 Output Total 200 / 200 150 / 150 Balance 538.15 / 546.20 594.15 / 594.15 Lab / Micro Data 08/06/24 03:15 08/06/24 03:15 Labs: Laboratory Results - last 24 hr 08/05/24 08:46: Lactic Acid < 1.0 08/05/24 08:49: WBC 10.1, RBC 4.70, Hgb 14.3, Hct 45.0, MCV 95.7 H, MCH 30.4, MCHC 31.8 L, RDW Std Deviation 45.1 H, RDW Coeff of Larry 12.7, Plt Count 288, MPV 9.2, Immature Gran % (Auto) 0.900, Neut % (Auto) 86.1 H, Lymph % (Auto) 5.1 L, [place] % (Auto) 6.6, Eos % (Auto) 0.7, Baso % (Auto) 0.6, Absolute Neuts (auto) 8.7 H, Absolute Lymphs (auto) 0.51 L, Nucleated RBC % 0, Sodium 139, Potassium 4.6, Chloride 92 L, Carbon Dioxide 41.4 H, Anion Gap 7, BUN 18, Creatinine 0.55 L, Estim Creat Clear Calc 67.27, Est GFR (MDRD) Non-Af 102, BUN/Creatinine Ratio 31.8 H, Glucose 175 H, Calcium 9.5, Total Bilirubin 0.31, AST 15, ALT 16, Alkaline Phosphatase 118, Total Protein 7.1, Albumin 4.3, Globulin 2.8, Albumin/Globulin Ratio 1.6 08/06/24 03:15: WBC 11.6 H, RBC 3.63 L, Hgb 11.1 L, Hct 33.4 L, MCV 92.0, MCH 30.6, MCHC 33.2, RDW Std Deviation 45.2 H, RDW Coeff of Larry 13.2, Plt Count 243, MPV 9.7, Immature Gran % (Auto) 0.500, Neut % (Auto) 77.2 H, Lymph % (Auto) 9.6 L, [place] % (Auto) 12.0 H, Eos % (Auto) 0.3, Baso % (Auto) 0.4, Absolute Neuts (auto) 9.0 H, Absolute Lymphs (auto) 1.12, Nucleated RBC % 0, Sodium 140, Potassium 3.3, Chloride 101, Carbon Dioxide 29.0, Anion Gap 10, BUN 24 H, Creatinine 0.72, Estim Creat Clear Calc 64.75, Est GFR (MDRD) Non-Af 94, BUN/Creatinine Ratio 33.8 H, Glucose 75, Calcium 7.6, Magnesium 1.3 L ABG Data ABG results: ABG 08/05/24 08/05/24 10:23 11:51 Specimen Type ART ART Sample Site R Radial R Radial pH 7.65 H* 7.56 H Bicarbonate Actual 34.4 H 41.5 H Total CO2 35 43 Base Excess 14 H 19 H O2 Saturation 100 H 99 O2 % 30.0 30.0 ABG pCO2 31.3 L 46.5 H ABG pO2 135 H 101 H Stephane Test Positive Positive Respiration Rate 18 12 O2 Delivery Device Adult Vent Adult Vent Vent Mode AC AC Tidal Volume 450.0 450.0 POC PEEP 5 5 Crit Call To/Read Back Yes Blood Gas Notified Whom soria Blood Gas Notified Time 10:24:54 Radiography Diagnostic Testing: Radiology Impression Brain CT 08/05/24 08:48 IMPRESSION: NO ACUTE FINDINGS Reading Location: [facility] Chest X-Ray 08/05/24 09:15 IMPRESSION: The tip of the endotracheal tube is at 3.6 cm proximal to the gail. Orogastric tube is seen with the tip in the stomach. Stable appearance of the lungs as well as the marked dextroscoliosis. Reading Location: [facility]-IR-1 KUB X-Ray 08/05/24 09:15 IMPRESSION: The tip of the nasogastric tube is in the distal portion of the stomach. Reading Location: [facility]-1 Rhythm Strip Rhythm Strip: Sinus Rhythm Rate: 86 Ectopy: None Physical Exam Narrative GENERAL: Interactive HEENT: Atraumatic; normocephalic EYES; Anicteric, Normal Conjunctiva NECK; supple, normal thyroid, RESPIRATORY: Diminished to auscultation CARDIOVASCULAR: Regular S1 S2, GI: soft, normoactive bowel sounds, : No Renal angle tenderness; EXTREMITIES: No edema, no clubbing, MUSCULOSKELETAL: scolikyphosis NEURO: No lateralizing signs SKIN: No Rash Assessment & Plan Assessment/Plan (1) Acute on chronic respiratory failure with hypoxia and hypercapnia: (2) Restrictive lung disease: PLAN: Plan Patient is a 79-year-old gentleman admitted with altered mental status 1. Acute metabolic encephalopathy ? Secondary to acute hypoxic and hypercapnic respiratory failure. Patient was intubated in the emergency department admitted to the intensive care unit repeat ABGs ordered for initial response to intubation ?; patient level of sensorium improving following mechanical ventilation and subsequent extubation 2. Acute hypercapnic and hypoxic respiratory failure ? Patient was intubated in the emergency department subsequently admitted to the intensive care unit. Initial vent settings written in consultation placed to pulmonary/intensive medicine for ICU management. Repeat checks x-ray ordered for tube placement as well as NG tube position ?; patient successfully weaned off the vent 3. Recently diagnosed A-fib with RVR ? Patient was discharged on sotalol as well as systemic anticoagulation with apixaban. With the patient being on the vent apixaban held 4. 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 Patient has significant complications including restrictive lung disease 5. Essential hypertension ? Patient blood pressure prior to admission was relatively low 83/56. Antihypertensive subsequently held. Admitted to the intensive care unit for close monitoring 6. Depression ? Patient is on venlafaxine, plan is to resume once of the event 7.. Central sleep apnea ? Patient uses BiPAP at night will resume when patient is extubated 8.. Chronic hypoxic and hypercapnic respiratory failure ? Patient is on continuous home oxygen during the day 9. BPH with lower urinary obstructive symptoms - Patient treated with tamsulosin, will resume following extubation 10. Hypokalemia - Potassium this a.m. is 3.3. Corrected per protocol, repeat labs ordered for monitoring unit 11. Hypomagnesemia ? Magnesium 1.3 corrected per protocol repeat labs ordered in a.m. for monitor 12. DVT prophylaxis ? On enoxaparin ?08/06/2024 with patient having been weaned off the vent patient will be started on his apixaban with discontinuation of the Doxy prior Time spent in the patient's overall evaluation,decision-making process, review of diagnostic data, adjustment of management, discussion with other providers, nursing nursing and ancillary staff involved in patient's care documentation, 52 Minutes Charges/Coding Visit Charges Inpatient E&M: 50073 [facility] Hosp L3
--- NOTE | 2024-08-06 07:36 | PCM.PN.INT ---
Assessment & Plan Assessment/Plan (1) Acute on chronic respiratory failure with hypoxia and hypercapnia: PLAN: Plan RECOMMENDATIONS: 1. Proceed with a trial of extubation. 2. Once extubated, wean supplemental oxygen to maintain saturations at or above 90%. 3. Speech therapy evaluation prior to advancement of diet. 4. Continue Lovenox for DVT prophylaxis. 5. Encourage incentive spirometer use and mobilize patient as tolerated. 6. Resume AVAPS therapy with naps and nightly. IMPRESSIONS: 1. Acute on chronic combined respiratory failure Most likely secondary to noncompliance with prescribed PAP therapy coupled with administration of benzodiazepine, leading to CO2 narcosis and need for intubation. The patient has a known medical history significant for chronic respiratory failure with hypoxemia and hypercapnia in the setting of restrictive lung disease due to excessive kyphoscoliosis and history of poliomyelitis. At his baseline, he is prescribed an astral noninvasive ventilator. There were no significant infiltrates or consolidation on chest x-ray to suggest pneumonia. With invasive mechanical ventilatory support, the patient's CO2 retention improved and he was able to be extubated on August 06. Supplemental oxygen will be weaned to maintain saturations at or above 90%. Recommend speech therapy evaluation prior to advancement of diet. 2. Metabolic encephalopathy Resolved. Related to acute CO2 retention in the setting of noncompliance with PAP therapy and administration of benzodiazepines. CT head was unremarkable. Continue supportive care as noted above. 3. History of syncope secondary to atrial fibrillation with RVR/hypertension/BPH/sleep apnea Complicates care, management, recovery and prognosis. Continue supportive measures as noted above. Resume AVAPS therapy with naps and nightly. TIME: 32 minutes of critical care time, independent of procedures, was spent addressing the patient's acute on chronic combined respiratory failure, metabolic encephalopathy, review of all data and collaboration with the care team. Subjective Subjective The patient was seen and examined at the bedside this morning. Events from the last 24 hours have been reviewed. The patient is currently afebrile, hemodynamically stable and maintaining appropriate oxygen saturations on assist-control mode of mechanical ventilation with an FiO2 requirement of 30% and PEEP of 5. After my initial evaluation of the patient, he was placed on a spontaneous breathing trial, which he ultimately completed. Accordingly, the patient was extubated. Blood blood cell count is stable at 11,000. Hemoglobin and platelet count are stable. Creatinine is within normal limits. Objective Data Objective Data The patient's most recent lab work, culture data and imaging studies have all been personally reviewed. Sputum culture is pending. Vital Signs: Vital Signs Temp Pulse Resp BP Pulse Ox O2 Del Method O2 Flow Rate 99.7 F H 87 24 H 112/77 96 Mechanical Ventilator 2 08/06/24 05:00 08/06/24 07:00 08/06/24 07:00 08/06/24 07:00 08/06/24 07:00 08/06/24 07:00 08/05/24 08:43 FiO2 24 08/06/24 07:00 Oxygen Flow Rate (L/min) 2 Oxygen Delivery Method Mechanical Ventilator Weight: 143 lb 8 oz Body Mass Index (BMI) 23.9 Intake & Output: Intake and Output for Last 24 Hours 08/04/24 08/05/24 08/06/24 23:59 23:59 23:59 Intake Total 738.15 / 746.20 744.15 / 744.15 Output Total 200 / 200 150 / 150 Balance 538.15 / 546.20 594.15 / 594.15 Lab / Micro Data Attestation: I reviewed the patient's lab results. 08/06/24 03:15 08/06/24 03:15 Labs: Laboratory Results - last 24 hr 08/05/24 08:46: Lactic Acid < 1.0 08/05/24 08:49: WBC 10.1, RBC 4.70, Hgb 14.3, Hct 45.0, MCV 95.7 H, MCH 30.4, MCHC 31.8 L, RDW Std Deviation 45.1 H, RDW Coeff of Larry 12.7, Plt Count 288, MPV 9.2, Immature Gran % (Auto) 0.900, Neut % (Auto) 86.1 H, Lymph % (Auto) 5.1 L, [place] % (Auto) 6.6, Eos % (Auto) 0.7, Baso % (Auto) 0.6, Absolute Neuts (auto) 8.7 H, Absolute Lymphs (auto) 0.51 L, Nucleated RBC % 0, Sodium 139, Potassium 4.6, Chloride 92 L, Carbon Dioxide 41.4 H, Anion Gap 7, BUN 18, Creatinine 0.55 L, Estim Creat Clear Calc 67.27, Est GFR (MDRD) Non-Af 102, BUN/Creatinine Ratio 31.8 H, Glucose 175 H, Calcium 9.5, Total Bilirubin 0.31, AST 15, ALT 16, Alkaline Phosphatase 118, Total Protein 7.1, Albumin 4.3, Globulin 2.8, Albumin/Globulin Ratio 1.6 08/06/24 03:15: WBC 11.6 H, RBC 3.63 L, Hgb 11.1 L, Hct 33.4 L, MCV 92.0, MCH 30.6, MCHC 33.2, RDW Std Deviation 45.2 H, RDW Coeff of Larry 13.2, Plt Count 243, MPV 9.7, Immature Gran % (Auto) 0.500, Neut % (Auto) 77.2 H, Lymph % (Auto) 9.6 L, [place] % (Auto) 12.0 H, Eos % (Auto) 0.3, Baso % (Auto) 0.4, Absolute Neuts (auto) 9.0 H, Absolute Lymphs (auto) 1.12, Nucleated RBC % 0, Sodium 140, Potassium 3.3, Chloride 101, Carbon Dioxide 29.0, Anion Gap 10, BUN 24 H, Creatinine 0.72, Estim Creat Clear Calc 64.75, Est GFR (MDRD) Non-Af 94, BUN/Creatinine Ratio 33.8 H, Glucose 75, Calcium 7.6, Magnesium 1.3 L ABG Data ABG results: ABG 08/05/24 08/05/24 10:23 11:51 Specimen Type ART ART Sample Site R Radial R Radial pH 7.65 H* 7.56 H Bicarbonate Actual 34.4 H 41.5 H Total CO2 35 43 Base Excess 14 H 19 H O2 Saturation 100 H 99 O2 % 30.0 30.0 ABG pCO2 31.3 L 46.5 H ABG pO2 135 H 101 H Stephane Test Positive Positive Respiration Rate 18 12 O2 Delivery Device Adult Vent Adult Vent Vent Mode AC AC Tidal Volume 450.0 450.0 POC PEEP 5 5 Crit Call To/Read Back Yes Blood Gas Notified Whom soria Blood Gas Notified Time 10:24:54 Radiography Diagnostic Testing: Radiology Impression Brain CT 08/05/24 08:48 IMPRESSION: NO ACUTE FINDINGS [facility]-Ray 08/05/24 09:15 IMPRESSION: The tip of the endotracheal tube is at 3.6 cm proximal to the gail. Orogastric tube is seen with the tip in the stomach. Stable appearance of the lungs as well as the marked dextroscoliosis. Reading Location: [facility]-1 KUB X-Ray 08/05/24 09:15 IMPRESSION: The tip of the nasogastric tube is in the distal portion of the stomach. Reading Location: [facility]-1 Rhythm Strip Rhythm Strip: Sinus Rhythm Rate: 86 Ectopy: None Physical Exam Const Constitutional Narrative: Remains intubated and mechanically ventilated. Alert and able to follow commands. HEENT normocephalic and head/scalp atraumatic Mouth: endotracheal tube in place Eyes PERRL, EOMs intact bilaterally and conjunctivae normal Neck supple General: trachea midline Chest inspection of chest normal Resp Auscultation: diminished lung sounds; Negative for rales, rhonchi or wheezes Cardio regular rate and regular rhythm GI normal to inspection, nondistended, normoactive bowel sounds Extremity no clubbing, cyanosis or edema Skin no rashes or lesions noted Neuro CN's II-XII intact bilaterally and moves all extremities Psych Mood & Affect: anxious Charges/Coding Procedures Hospitalists Procedures: [id number] Critical Care 1st Hr
[2024-08-06] MEDS: Chlorhexidine 15 ML PO (07:53)
[2024-08-06] MEDS: Enoxaparin 40 MG/0.4 ML Syringe SC (07:53)
--- NOTE | 2024-08-06 08:10 | NURSING ---
Patient on breathing trial with propofol and fentanyl drips still running per Dr. Mireles request. Dr Monsivais said to turn the drips off right before extubation. Patient extremely restless and agitated swinging at staff and pinching refusing to follow commands. Dr Monsivais aware. Plan is to extubate patient this AM.
--- NOTE | 2024-08-06 08:35 | NURSING ---
Patient extubated at this time still very restless and agitated, however following more commands and responding more appropriately.
[2024-08-06] MEDS: Potassium Chloride 10mEq/100mL 10 MEQ/100 ML IV.SOLN. 100 MEQ IV BOLUS ×4 (09:24→12:44)
[2024-08-06] MEDS: Magnesium Sulfate 2 GM in Dextrose 5%-Water (100mL Bag) 100 ML IV (09:24)
[2024-08-06 10:48] LABS: Phosphorus 1.5 mg/dL (2.7-4.5)
[2024-08-06 11:00] LABS: CPK Total, Creatine Kinase 42 U/L (24-195); Triglycerides 93 mg/dL
--- NOTE | 2024-08-06 12:09 | CHAPLAIN ---
Type of Pastoral Visit ___ Initial Visit _x__ Follow-up Visit ___ On-call Visit ___ General Patient Visit ___ Spiritual Assessment ___ Family Conference ___ Bereavement ___ Rapid Response ___ Code Blue ___ Other (describe below) Pastoral Care Referral From ___ Patient _x__ Family ___ Nurse ___ Physician ___ Liquor Grinder Mill Operator ___ Ironworker Foreman ___ Other (describe below) Sacrament/Intervention _x__ Active listening ___ Anointing ___ Tenriism ___ Bereavement ___ Communion ___ Rossi exploration ___ ___ Life review _x__ Prayer ___ Reconciliation ___ Sacrament of Sick _x__ Supportive presence ___ Wedding ___ Other (describe below) Pastoral Comments after a significant episode yesterday the patient had been intubated and admitted to ICU from the TCU where he was last seen by this dog daycare provider; this morning the patient was extubated and he is able to sit up and talk; pt is welcoming but does appear to be a bit more deliberate in speaking due to his breathing and maybe some inability to grasp all that he went through in the last 24 hours; pt is however appropriate in answering questions; pt is able to state that he has good family support from and siblings; pt acknowledges that he feels some better today than yesterday although does not explain what that means; pt accepts presence and prayer for his support today
--- NOTE | 2024-08-06 12:11 | RAD_ITS ---
PROCEDURE: CHEST 1 VIEW (PORTABLE) 08/06/2024 REASON FOR EXAM: FEVER TECHNIQUE: Frontal view of the chest. COMPARISON: Comparison is made with prior study dated August 05, 2024. FINDINGS: Hardware: EKG electrodes. The endotracheal tube and orogastric tube have been removed. Heart: Heart size is mildly enlarged. Lungs: Stable mild increased markings at the lung bases suggestive of atelectasis. Volume loss in the right hemithorax due to the marked degree of dextroscoliosis. Bones: Marked dextroscoliosis of the thoracic spine. Other: Calcification of the aortic arch. RAD/Chest 1 View (Portable) IMPRESSION: Interval removal of the endotracheal tube and nasogastric tube. Mild bibasilar atelectasis. Cardiomegaly. Marked dextroscoliosis of the thoracic spine. Reading Location: [place] [address]
--- NOTE | 2024-08-06 12:15 | SEPSISATNOTE ---
Sepsis Attestation Sepsis Alert: Yes Sepsis Attestation: Agree w/Sepsis Date exam was performed: 08/06/24 Time exam was performed: 08:00 Possible Source of Sepsis: Unknown Sepsis Organ Dysfunction Criteria Present: Acute Respiratory Failure (New need for BiPAP/CPAP or MV) Supportive Findings: Patient did not require fluid resuscitation since lactic acid levels came back within normal Fluid Resuscitation Fluid resuscitation indicated?: Yes (Not indicated normal lactic acid) Fluid Resuscitation ordered: Fluids not indicated Reason for lesser fluid bolus:: BP Responded to a lesser volume
[2024-08-06 13:46] LABS: Lactic Acid 1.1 mmol/L (0.0-2.0)
[2024-08-06] MEDS: Pantoprazole Sodium 40 MG in 0.9% Normal Saline (100mL MB+) 100 ML 330 MG IV (14:01)
[2024-08-06] MEDS: Potassium Phosphate 40 MM in 0.9% Normal Saline (500mL Bag) 500 ML 62.5 MM IV (14:27)
--- NOTE | 2024-08-06 15:35 | CASEMGMT ---
Social Work Pt admitted from TCU. PERRY attempted to meet with pt to discuss discharge plan. Pt sleeping soundly at this time. PERRY will follow up tomorrow. MARISELA Boo
--- NOTE | 2024-08-06 16:01 | CASEMGMT ---
Addendum entered by Kelly Caicedo 08/06/24 16:44: TC to [employer] who states that the pt current order states 5L continuous and 3L via NIV in which the pt rents from [employer]. Original Note: Readmission Note: Index: 07/22/24-07/28/24. Dx: Syncope, AFIB RVR Readmission: 08/05/24. Dx: Acute RF The pt has a past medical history significant for polio with significant complications including severe scoliokyphosis and restrictive lung disease. From index admission, the pt was discharged to [facility] TCU. Per the TCU SW, the pt had not slept in days then around 0300 he received a dose of Ativan. The pt was off his oxygen. About 0820 he became unresponsive. A Rapid Response was called and the pt was brought to the ED. Workup in the emergency department did show significant hypercarbia with PCO2 of 131. Patient was intubated and subsequently admitted to the intensive care unit. Moving forward, the plan is TBD. Pt is now extubated and SW attempted to discuss a potential return to the TCU if warranted but the pt was comfortably asleep. Care Management to continue to follow. Joi CAICEDO RN CM
[2024-08-06] MEDS: Sotalol Hydrochloride 80 MG Tablet PO (22:24)
[2024-08-06] MEDS: APIXABAN 5 MG TABLET PO (22:25)
[2024-08-07] VITALS (17 sets, daily range): BP systolic 97–158; BP diastolic 63–113; PULSE 57–93; RESP 10–27; TEMP 35.5–37.2; O2SAT 89–100; BMI 24.5
[2024-08-07] MEDS: Ipratropium/Albuterol Sulfate 3 ML AMPUL.NEB INHALATION ×5 (02:53→23:12)
[2024-08-07 06:22] LABS: Absolute Neutrophil Count 10.6 X10^3/uL (2.0-7.7); Basophil# 0.06 X10^3/uL; Basophil% 0.5 % (0-1); Eosinophil# 0.07 X10^3/uL; Eosinophils% 0.5 % (0-5); Hematocrit 35.1 % (40-54); Hemoglobin 11.4 g/dL (13.0-16.5); Mean Corp Hgb Conc 32.5 g/dL (32-36); Mean Corpuscular Hgb 30.2 pg (27.0-32.0); Mean Corpuscular Volume 93.1 fL (80-94); Mean Platelet Vol. 10.2 fl (6.2-12.0); Monocyte# 1.71 X10^3/uL; Monocyte% 12.8 % (0-10); NRBC Flagged by Analyzer 0 % (0-5); Neutrophil # 10.59 X10^3/uL (2.7-7.7); Neutrophil % 79.6 % (47-70); POSITIVE DIFFERENTIAL YES; Platelet Count 253 K/mm3 (150-450); RBC Distribution Width CV 13.8 % (11.6-14.6); RBC Distribution Width SD 46.4 fl (35.1-43.9); Red Blood Count 3.77 M/mm3 (4.6-6.2); White Blood Count 13.3 K/mm3 (4.4-11.0)
[2024-08-07 06:41] LABS: Differential Indicated SCAN CRITERIA MET
[2024-08-07 06:43] LABS: Anion Gap 11 (5-15); BUN 19 mg/dL (4-19); BUN/Creat Ratio 30.4 RATIO (10-20); Calcium,Total 8.7 mg/dL (7.6-11.0); Carbon Dioxide 32.1 mmol/L (21.0-32.0); Chloride 99 mmol/L (98-108); Creatinine, Serum 0.63 mg/dL (0.70-1.20); EST Glomerular Filtration Rate 98 (>60); Estimated Creatinine Clearance 64.75 ml/min (50-250); Glucose 98 mg/dL (70-99); Potassium 4.5 mmol/L (3.3-5.1); Sodium Level 142 mmol/L (133-145)
[2024-08-07 06:55] LABS: Phosphorus 3.6 mg/dL (2.7-4.5)
--- NOTE | 2024-08-07 07:10 | PCM.PN.HOSP ---
Reason for Visit Reason for Visit: Diagnoses Acute and chronic respiratory failure with hypoxia (08/05/24) Acute and chronic respiratory failure with hypercapnia (08/05/24) Other disorders of lung (08/05/24) Subjective Subjective Patient seen. Appears to be back to his baseline. Apparently did with his Pap therapy gave him n.p.o. sepsis workup undertaken the day prior so far negative to date. WBC count however remains elevated. Plan is for patient to be transferred from ICU to progressive care unit Objective Data Objective Data Vital Signs: Vital Signs Temp Pulse Resp BP Pulse Ox O2 Del Method O2 Flow Rate 99 F 80 21 H 102/82 H 99 Nasal Cannula 4 08/07/24 06:00 08/07/24 06:00 08/07/24 06:00 08/07/24 06:00 08/07/24 06:00 08/07/24 06:00 08/07/24 06:00 FiO2 25 08/07/24 05:18 Oxygen Flow Rate (L/min) 4 Oxygen Delivery Method Nasal Cannula Weight: 66.905 kg Body Mass Index (BMI) 24.5 Intake & Output: Intake and Output for Last 24 Hours 08/05/24 08/06/24 08/07/24 23:59 23:59 23:59 Intake Total 738.15 / 746.20 2764.1833 / 2814.1833 50 / 50 Output Total 200 / 200 975 / 995 90 / 90 Balance 538.15 / 546.20 1789.1833 / 1819.1833 -40 / -40 Lab / Micro Data 08/07/24 05:00 08/07/24 05:00 Labs: Laboratory Results - last 24 hr 08/05/24 08:49: Total Creatine Kinase 42, Triglycerides 93 08/06/24 03:15: Phosphorus 1.5 L 08/06/24 12:54: Lactic Acid 1.1 08/07/24 05:00: WBC 13.3 H, RBC 3.77 L, Hgb 11.4 L, Hct 35.1 L, MCV 93.1, MCH 30.2, MCHC 32.5, RDW Std Deviation 46.4 H, RDW Coeff of Larry 13.8, Plt Count 253, MPV 10.2, Immature Gran % (Auto) 0.600, Neut % (Auto) 79.6 H, Lymph % (Auto) 6.0 L, [place] % (Auto) 12.8 H, Eos % (Auto) 0.5, Baso % (Auto) 0.5, Absolute Neuts (auto) 10.6 H, Absolute Lymphs (auto) 0.80 L, Nucleated RBC % 0, Sodium 142, Potassium 4.5, Chloride 99, Carbon Dioxide 32.1 H, Anion Gap 11, BUN 19, Creatinine 0.63 L, Estim Creat Clear Calc 64.75, Est GFR (MDRD) Non-Af 98, BUN/Creatinine Ratio 30.4 H, Glucose 98, Calcium 8.7, Phosphorus 3.6, Magnesium 2.0 Micro: Microbiology 08/06/24 13:49 Mucosa - Nasopharyngeal Coronavirus COVID-19 PCR - Final 08/06/24 13:49 Mucosa - Nasopharyngeal Respiratory Panel (PCR) - Final 08/05/24 11:40 Sputum, Induced/Lukens Gram Stain - Final 08/05/24 11:40 Sputum, Induced/Lukens Respiratory Culture - Preliminary Appears to be normal respiratory rogelio. Further studies to follow. Radiography Diagnostic Testing: Radiology Impression Chest X-Ray 08/06/24 12:11 IMPRESSION: Interval removal of the endotracheal tube and nasogastric tube. Mild bibasilar atelectasis. Cardiomegaly. Marked dextroscoliosis of the thoracic spine. Reading Location: [place] [address] Rhythm Strip Rhythm Strip: Sinus Rhythm Rate: 86 Ectopy: None Physical Exam Narrative GENERAL: Interactive HEENT: Atraumatic; normocephalic EYES; Anicteric, Normal Conjunctiva NECK; supple, normal thyroid, RESPIRATORY: Diminished to auscultation CARDIOVASCULAR: Regular S1 S2, GI: soft, normoactive bowel sounds, : No Renal angle tenderness; EXTREMITIES: No edema, no clubbing, MUSCULOSKELETAL: scolikyphosis NEURO: No lateralizing signs SKIN: No Rash Assessment & Plan Assessment/Plan (1) Acute on chronic respiratory failure with hypoxia and hypercapnia: (2) Restrictive lung disease: PLAN: Plan Patient is a 79-year-old gentleman admitted with altered mental status 1. Acute metabolic encephalopathy ? Secondary to acute hypoxic and hypercapnic respiratory failure. Patient was intubated in the emergency department admitted to the intensive care unit repeat ABGs ordered for initial response to intubation ?08/06/2024; patient level of sensorium improving following mechanical ventilation and subsequent extubation ? 08/07/2024Patient seen. Appears to be back to his baseline. Apparently did with his Pap therapy gave him n.p.o. sepsis workup undertaken the day prior so far negative to date. WBC count however remains elevated. Plan is for patient to be transferred from ICU to progressive care unit 2. Acute hypercapnic and hypoxic respiratory failure ? Patient was intubated in the emergency department subsequently admitted to the intensive care unit. Initial vent settings written in consultation placed to pulmonary/intensive medicine for ICU management. Repeat checks x-ray ordered for tube placement as well as NG tube position ?08/06/2024; patient successfully weaned off the vent ? 08/07/2024; patient did not wear his PAP therapy during the night. Currently on 4 L flow per minute 3. Recently diagnosed A-fib with RVR ? Patient was discharged on sotalol as well as systemic anticoagulation with apixaban. With the patient being on the vent apixaban held 4. 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 Patient has significant complications including restrictive lung disease 5. Essential hypertension ? Patient blood pressure prior to admission was relatively low 83/56. Antihypertensive subsequently held. Admitted to the intensive care unit for close monitoring 6. Depression ? Patient is on venlafaxine, plan is to resume once of the event 7.. Central sleep apnea ? Patient uses BiPAP at night will resume when patient is extubated 8.. Chronic hypoxic and hypercapnic respiratory failure ? Patient is on continuous home oxygen during the day 9. BPH with lower urinary obstructive symptoms - Patient treated with tamsulosin, will resume following extubation 10. Hypokalemia - Potassium this a.m. is 3.3. Corrected per protocol, repeat labs ordered for monitoring unit 11. Hypomagnesemia ? Magnesium 1.3 corrected per protocol repeat labs ordered in a.m. for monitor 12. DVT prophylaxis ? On enoxaparin ?08/06/2024 with patient having been weaned off the vent patient will be started on his apixaban with discontinuation of the Lovenox Charges/Coding Visit Charges Inpatient E&M: 72220 Subs Hosp L2
--- NOTE | 2024-08-07 07:33 | PN.CC_ITS ---
Assessment & Plan Assessment/Plan (1) Acute on chronic respiratory failure with hypoxia and hypercapnia: PLAN: Plan RECOMMENDATIONS: 1. Supplemental oxygen to maintain saturations at or above 90%. 2. Continue AVAPS therapy with naps and nightly. 3. Dietary advancement per speech therapy. 4. Continue Lovenox for DVT prophylaxis. 5. Encourage incentive spirometer use and mobilize patient as tolerated. 6. The patient is medically stable for transfer out of the intensive care unit. 7. Follow-up in the pulmonary medicine clinic on September 03, as scheduled. IMPRESSIONS: 1. Acute on chronic combined respiratory failure Most likely secondary to noncompliance with prescribed PAP therapy coupled with administration of benzodiazepine, leading to CO2 narcosis and need for intubation. The patient has a known medical history significant for chronic respiratory failure with hypoxemia and hypercapnia in the setting of restrictive lung disease due to excessive kyphoscoliosis and history of poliomyelitis. At his baseline, he is prescribed an astral noninvasive ventilator. There were no significant infiltrates or consolidation on chest x-ray to suggest pneumonia. With invasive mechanical ventilatory support, the patient's CO2 retention improved and he was able to be extubated on August 06. Supplemental oxygen will be weaned to maintain saturations at or above 90%. Recommend dietary advancement per speech therapy recommendations. The patient will be maintained on AVAPS therapy on an ongoing basis with naps and nightly. 2. Metabolic encephalopathy Resolved. Related to acute CO2 retention in the setting of noncompliance with PAP therapy and administration of benzodiazepines. CT head was unremarkable. Continue supportive care as noted above. 3. History of syncope secondary to atrial fibrillation with RVR/hypertension/BPH/sleep apnea Complicates care, management, recovery and prognosis. Continue supportive measures as noted above. Resume AVAPS therapy with naps and nightly. This note was generated with [employer] dictation software. It may contain incorrect words, spelling, and punctuation that were not noted in checking the note before signing. Subjective Subjective The patient was seen and examined at the bedside this morning. Events from the last 24 hours have been reviewed. The patient is currently afebrile, hemodynamically stable and maintaining appropriate oxygen saturations on 4 L/min via nasal cannula. The patient has done well from a respiratory perspective following extubation yesterday. The patient tolerated AVAPS therapy overnight. The patient is currently documented to be overall net +2.2 L for the hospitalization. Objective Data Objective Data The patient's most recent lab work, culture data and imaging studies have all been personally reviewed. Sputum culture has not demonstrated any growth to date. Vital Signs: Vital Signs Temp Pulse Resp BP Pulse Ox O2 Del Method O2 Flow Rate 99 F 81 22 H 149/113 H 99 Nasal Cannula 4 08/07/24 07:00 08/07/24 07:00 08/07/24 07:00 08/07/24 07:00 08/07/24 07:00 08/07/24 07:00 08/07/24 07:00 FiO2 25 08/07/24 05:18 Oxygen Flow Rate (L/min) 4 Oxygen Delivery Method Nasal Cannula Weight: 147 lb 8 oz Body Mass Index (BMI) 24.5 Intake & Output: Intake and Output for Last 24 Hours 08/05/24 08/06/24 08/07/24 23:59 23:59 23:59 Intake Total 738.15 / 746.20 2764.1833 / 2814.1833 50 / 50 Output Total 200 / 200 975 / 995 90 / 90 Balance 538.15 / 546.20 1789.1833 / 1819.1833 -40 / -40 Lab / Micro Data Attestation: I reviewed the patient's lab results. 08/07/24 05:00 08/07/24 05:00 Labs: Laboratory Results - last 24 hr 08/05/24 08:49: Total Creatine Kinase 42, Triglycerides 93 08/06/24 03:15: Phosphorus 1.5 L 08/06/24 12:54: Lactic Acid 1.1 08/07/24 05:00: WBC 13.3 H, RBC 3.77 L, Hgb 11.4 L, Hct 35.1 L, MCV 93.1, MCH 30.2, MCHC 32.5, RDW Std Deviation 46.4 H, RDW Coeff of Larry 13.8, Plt Count 253, MPV 10.2, Immature Gran % (Auto) 0.600, Neut % (Auto) 79.6 H, Lymph % (Auto) 6.0 L, [place] % (Auto) 12.8 H, Eos % (Auto) 0.5, Baso % (Auto) 0.5, Absolute Neuts (auto) 10.6 H, Absolute Lymphs (auto) 0.80 L, Nucleated RBC % 0, Sodium 142, Potassium 4.5, Chloride 99, Carbon Dioxide 32.1 H, Anion Gap 11, BUN 19, C reatinine 0.63 L, Estim Creat Clear Calc 64.75, Est GFR (MDRD) Non-Af 98, B UN/Creatinine Ratio 30.4 H, Glucose 98, Calcium 8.7, Phosphorus 3.6, Magnesium 2.0 Micro: Microbiology 08/06/24 13:49 Mucosa - Nasopharyngeal Coronavirus COVID-19 PCR - Final 08/06/24 13:49 Mucosa - Nasopharyngeal Respiratory Panel (PCR) - Final 08/05/24 11:40 Sputum, Induced/Lukens Gram Stain - Final 08/05/24 11:40 Sputum, Induced/Lukens Respiratory Culture - Preliminary Appears to be normal respiratory rogelio. Further studies to follow. ABG Data ABG results: ABG 08/05/24 08/05/24 10:23 11:51 Specimen Type ART ART Sample Site R Radial R Radial pH 7.65 H* 7.56 H Bicarbonate Actual 34.4 H 41.5 H Total CO2 35 43 Base Excess 14 H 19 H O2 Saturation 100 H 99 O2 % 30.0 30.0 ABG pCO2 31.3 L 46.5 H ABG pO2 135 H 101 H Stephane Test Positive Positive Respiration Rate 18 12 O2 Delivery Device Adult Vent Adult Vent Vent Mode AC AC Tidal Volume 450.0 450.0 POC PEEP 5 5 Crit Call To/Read Back Yes Blood Gas Notified Whom soria Blood Gas Notified Time 10:24:54 Radiography Diagnostic Testing: Radiology Impression Chest X-Ray 08/06/24 12:11 IMPRESSION: Interval removal of the endotracheal tube and nasogastric tube. Mild bibasilar atelectasis. Cardiomegaly. Marked dextroscoliosis of the thoracic spine. Reading Location: [place] [address] Rhythm Strip Rhythm Strip: Sinus Rhythm Rate: 86 Ectopy: None Physical Exam Const alert and no apparent distress General Appearance: cooperative HEENT normocephalic, head/scalp atraumatic and moist oral mucous membranes Eyes PERRL, EOMs intact bilaterally and conjunctivae normal Neck supple General: trachea midline Chest inspection of chest normal Resp Auscultation: diminished lung sounds; Negative for rales, rhonchi or wheezes Cardio regular rate and regular rhythm GI normal to inspection, nondistended, normoactive bowel sounds Extremity no clubbing, cyanosis or edema Skin no rashes or lesions noted Neuro CN's II-XII intact bilaterally, moves all extremities and no focal motor deficits Psych Mood & Affect: flat affect Charges/Coding Visit Charges Inpatient E&M: 93235 Subs Hosp L3
[2024-08-07] MEDS: Sotalol Hydrochloride 80 MG Tablet PO ×2 (08:15→22:10)
[2024-08-07] MEDS: Venlafaxine XR 75 MG Capsule PO (08:15)
[2024-08-07] MEDS: Tamsulosin HCl 0.4 MG Capsule PO ×2 (08:15→17:36)
[2024-08-07] MEDS: APIXABAN 5 MG TABLET PO ×2 (08:16→22:10)
[2024-08-07] MEDS: Pantoprazole Sodium 40 MG in 0.9% Normal Saline (100mL MB+) 100 ML 330 MG IV (08:19)
--- NOTE | 2024-08-07 10:18 | CASEMGMT ---
Social Work SW met with pt and discussed discharge plan. Pt states that he would like to return to TCU to continue his rehab at time of discharge from the hospital. Referral to [facility] in TCU and TCU is able to accept back. Pt will need precert prior to return to TCU and this will be started when pt is medically ready for discharge. Plan: Return to TCU, precert will be needed. MARISELA Aldridge
--- NOTE | 2024-08-07 15:44 | ST.MBS ---
Modified Barium Swallow Patient Information Study Date: 08/07/24 Study Time: 13:45 Direct Billable Minutes: 107 Total Minutes procedure & reportin Diagnosis: Acute respiratory failure w/ hypoxia & hypercapnia J96.21,J96.22 Referring Physician: Familia Michel Reason for Referral: Assess swallow function, assess risk for aspiration, and determine recommendations for least restrictive diet textures and dysphagia interventions. 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 See EMR for full PMH. 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 He had a recent prolonged hospitalization due to cystitis and a syncopal episode, after which he was discharged to the TCU for continued recovery. On the morning of this admission, the patient was found to be minimally responsive, prompting a rapid response and transfer to the emergency department. He was found to have significant hypercarbia, with a PCO2 level of 131 and was subsequently intubated on 08/05/2024. He was admitted to ICU. Pt extubated on 08/06/2024. Chest x-ray did not show any significant infiltrates or consolidation to suggest pneumonia. Speech therapy evaluation was recommended prior to advancing the diet, with speech therapy orders placed for dysphagia assessment. ST recommended Regular textures / Thin liquids w/ plan for MBSS to further assess swallow function and aspiration risk given pt reports of choking on foods, drinks, or even his own spit. He reported his had to give him the Heimlich in the past 1-2 months w/ food ejected. He was unable to recall [employer] what food he choked on. Current Diet Ordered: Regular textures / Thin liquids Dentition: Natural Teeth Mental Status: WNL (Able to follow commands for evaluation w/o difficulty, but unable to recall food from recent choking episode) Respiratory Status: Oxygenating on 4L/M nasal cannula Penetration-Aspiration Scale Penetration-Aspiration Scale: OBJECTIVE ASSESSMENT OF SWALLOW FUNCTION (QUANTITATIVE ? PER TRIAL): PENETRATION / ASPIRATION SCALE (ROBISON): 1 = does not enter airway 2 = enters airway/above vocal folds/ejected 3 = enters airway/above vocal folds/not ejected 4 = enters airway/contacts vocal folds/ejected 5 = enters airway/contacts vocal folds/not ejected 6 = enters airway/below vocal folds/ejected 7 = enters airway/below vocal folds/not ejected despite effort 8 = enters airway/below vocal folds/no effort VIDEOFLOROSCOPIC SCALE SCORE (ROBISON): Grade I = aspiration of material that has penetrated into the laryngeal vestibule, intact cough reflex Grade II = aspiration < 10 % of the bolus, intact cough reflex Grade III = aspiration of < 10 % of the bolus, reduced cough reflex or aspiration of > 10 % of the bolus, intact cough reflex Grade IV = aspiration of > 10 % of the bolus, reduced cough reflex Penetration-Aspiration Scale Score Thin Liquid via teaspoon: Result: 1= does not enter airway Thin Liquid via teaspoon Trial 2: Result: 3= enters airways/above vocal folds/not ejected Thin Liquid via sequential sips: cup: Result: 3= enters airways/above vocal folds/not ejected Thin via small single sip: cup, cued swallow hard and fast: Result: 2= enter airway/above vocal folds/ejected [place] Thick Liquid via small single sip: cup: Result: 2= enter airway/above vocal folds/ejected Pudding via teaspoon: Result: 1= does not enter airway Comment: Esophageal screen - Esophageal retention in the middle and lower esophagus. Thin Liquid via single sip: straw: Result: 3= enters airways/above vocal folds/not ejected Comment: Esophageal screen - Esophageal retention of barium pudding and liquid wash throughout the esophagus w/ retrograde flow of thin liquid barium through the UES to the pyriform sinuses. [employer] discontinued study due to concerns for reflux aspiration and/or regurgitation. Oral Phase Labial Seal: No Labial Escape Tongue Control During Bolus Hold: Posterior escape of less than half of bolus Bolus Transport/Lingual Motion: Delayed initiation of tongue motion Oral Residue: Trace residue lining oral structures Pharyngeal Phase Initiation of Pharyngeal Swallow: Bolus head in pyriforms Soft Palate Elevation: Trace column of contrast/air between soft palate and pharyngeal wall Laryngeal Elevation: Partial superior movement thyroid cart/partial apprx aryt-epig petiole (trace retention in the UES) Anterior Hyoid Excursion: Complete anterior movement Epiglottic Movement: Complete inversion Laryngeal Vestibule Closure at Height of Swallow: Incomplete; narrow column of air/contrast in laryngeal vestibule Pharyngeal Stripping Wave: Present - complete Pharyngoesophageal Segment Opening: Parital distension and partial duration; parital obstruction of flow Tongue Base Retraction: Trace column of contrast between tongue base & post. pharyngeal wall Pharyngeal Residue: Trace residue within or on pharyngeal structures Esophageal Phase Esophageal Clearance: Esophageal retention w/ retrograde flow through pharyngoesophageal seg Diagnosis/Impression Diagnosis: Mild oropharyngeal dysphagia R13.12; Esophageal dysphagia R13.14 Impression: The oral phase is primarily marked by... -Premature posterior loss of <1/2 of thin liquids to the pyriforms prior to swallow onset. -Delayed tongue motion for A-P transport. -Did not assess mastication due to poor esophageal clearance of pudding and thin liquid trials. The pharyngeal phase is primarily marked by... -Mild delay initiating the swallow. -Decreased airway closure during the swallow due to decreased laryngeal elevation. Consistent laryngeal penetration of thin liquids that did not fully eject from the laryngeal vestibule; however, swallowing hard and fast improved timeliness of swallow and ejected penetrated barium from the laryngeal vestibule. No aspiration observed. The esophageal phase is primarily marked by... -Esophageal retention of pudding and thin liquids throughout the esophagus w/ retrograde flow of thin liquid barium through the UES to the pyriform sinuses. [employer] discontinued study due to concerns for reflux aspiration and/or regurgitation. Recommendations Diet: Thin Liquids (Clear liquids prior to GI consult) Comment: Advance diet as recommended by GI following intervention. [employer] to follow for ongoing assessment of diet tolerance. Compensatory Strategies: Small Sips (Swallow hard and fast), Slow Rate, Alternate bites/solids and sips/liquids, Sitting upright and Remain sitting upright for 30 minutes after PO intake Supervision: Distant Supervision Recommend Repeat Modified Barium Swallow: TBD Need for Skilled Speech Therapy Services: Yes Comment: -Train the patient in use of strategies to decrease risk for aspiration and reflux aspiration. -Ongoing assessment of diet tolerance of recommended textures. Ok to advance diet as recommended by GI following GI interventions. -Train the patient in oropharyngeal exercise program (lingual resistance, Sherry, effortful). Recommended Referrals: GI Consult Education Completed: 1. Described result of evaluation., 2. Pt understands evaluation & agrees with goals and treatment plan. and 4. Family/caregivers understand evaluation & agree w/ goals & tx plan. Status Active ST Patient: Active Contact Information [facility] Speech Therapy:: Deborah Fowler M.A. CCC-[employer]? Speech-Language Pathologist?? [facility] [address] [place] [address]? [email or web address]?? [phone]
[2024-08-07] MEDS: Acetaminophen 325 MG Tablet 650 MG PO (22:08)
[2024-08-08] VITALS (13 sets, daily range): BP systolic 90–157; BP diastolic 50–98; PULSE 41–80; RESP 15–30; TEMP 36.6–36.8; O2SAT 95–99; BMI 24.3
[2024-08-08] MEDS: Ipratropium/Albuterol Sulfate 3 ML AMPUL.NEB INHALATION ×5 (02:44→22:50)
[2024-08-08 04:47] LABS: Absolute Lymphocyte Count 0.77 X10^3/uL (0.83-4.51); Absolute Neutrophil Count 6.9 X10^3/uL (2.0-7.7); Basophil# 0.05 X10^3/uL; Basophil% 0.5 % (0-1); Eosinophil# 0.21 X10^3/uL; Eosinophils% 2.3 % (0-5); Hematocrit 33.1 % (40-54); Hemoglobin 10.7 g/dL (13.0-16.5); Lymphocyte # 0.77 X10^3/ul (0.83-4.51); Lymphocyte % 8.3 % (19-41); Mean Corp Hgb Conc 32.3 g/dL (32-36); Mean Corpuscular Hgb 30.1 pg (27.0-32.0); Mean Platelet Vol. 9.9 fl (6.2-12.0); Monocyte# 1.27 X10^3/uL; Monocyte% 13.8 % (0-10); NRBC Flagged by Analyzer 0 % (0-5); Neutrophil # 6.88 X10^3/uL (2.7-7.7); Neutrophil % 74.6 % (47-70); Platelet Count 241 K/mm3 (150-450); RBC Distribution Width CV 13.5 % (11.6-14.6); RBC Distribution Width SD 45.8 fl (35.1-43.9); Red Blood Count 3.56 M/mm3 (4.6-6.2); White Blood Count 9.2 K/mm3 (4.4-11.0)
[2024-08-08 07:06] LABS: Anion Gap 10 (5-15); BUN 13 mg/dL (4-19); BUN/Creat Ratio 24.2 RATIO (10-20); Calcium,Total 8.8 mg/dL (7.6-11.0); Carbon Dioxide 30.5 mmol/L (21.0-32.0); Chloride 97 mmol/L (98-108); Creatinine, Serum 0.53 mg/dL (0.70-1.20); EST Glomerular Filtration Rate 103 (>60); Estimated Creatinine Clearance 64.75 ml/min (50-250); Glucose 105 mg/dL (70-99); Potassium 3.7 mmol/L (3.3-5.1); Sodium Level 138 mmol/L (133-145)
[2024-08-08] MEDS: APIXABAN 5 MG TABLET PO (11:25)
[2024-08-08] MEDS: Sotalol Hydrochloride 80 MG Tablet PO ×2 (11:25→20:17)
[2024-08-08] MEDS: Tamsulosin HCl 0.4 MG Capsule PO ×2 (11:25→16:53)
[2024-08-08] MEDS: Venlafaxine XR 75 MG Capsule PO (11:25)
[2024-08-08] MEDS: Acetaminophen 325 MG Tablet 650 MG PO ×2 (11:33→22:29)
--- NOTE | 2024-08-08 11:48 | CASEMGMT ---
Patient was approved to return to TCU. SW will place a green sheet on patient's chart. Plan: d/c back to TCU under skilled level of care. Graciela ROBERTS
[2024-08-08] MEDS: Pantoprazole Sodium 40 MG Tablet PO (12:52)
--- NOTE | 2024-08-08 15:05 | PCM.PN.HOSP ---
Reason for Visit Reason for Visit: Diagnoses Acute and chronic respiratory failure with hypoxia (08/05/24) Acute and chronic respiratory failure with hypercapnia (08/05/24) Other disorders of lung (08/05/24) Objective Data Objective Data Vital Signs: Vital Signs Temp Pulse Resp BP Pulse Ox O2 Del Method O2 Flow Rate 98.2 F 61 17 157/87 H 97 Nasal Cannula 4 08/08/24 11:19 08/08/24 12:22 08/08/24 12:22 08/08/24 11:19 08/08/24 11:19 08/08/24 11:19 08/08/24 11:19 FiO2 25 08/08/24 07:10 Oxygen Flow Rate (L/min) 4 Oxygen Delivery Method Nasal Cannula Weight: 146 lb 2.664 oz Body Mass Index (BMI) 24.3 Intake & Output: Intake and Output for Last 24 Hours 08/06/24 08/07/24 08/08/24 23:59 23:59 23:59 Intake Total 2764.1833 / 2814.1833 160 / 360 450 / 450 Output Total 975 / 995 90 / 440 650 / 650 Balance 1789.1833 / 1819.1833 70 / -80 -200 / -200 Lab / Micro Data 08/08/24 04:20 08/08/24 04:20 Labs: Laboratory Results - last 24 hr 08/08/24 04:20: WBC 9.2, RBC 3.56 L, Hgb 10.7 L, Hct 33.1 L, MCV 93.0, MCH 30.1, MCHC 32.3, RDW Std Deviation 45.8 H, RDW Coeff of Larry 13.5, Plt Count 241, MPV 9.9, Immature Gran % (Auto) 0.500, Neut % (Auto) 74.6 H, Lymph % (Auto) 8.3 L, [place] % (Auto) 13.8 H, Eos % (Auto) 2.3, Baso % (Auto) 0.5, Absolute Neuts (auto) 6.9, Absolute Lymphs (auto) 0.77 L, Nucleated RBC % 0, Sodium 138, Potassium 3.7, Chloride 97 L, Carbon Dioxide 30.5, Anion Gap 10, BUN 13, Creatinine 0.53 L, Estim Creat Clear Calc 64.75, Est GFR (MDRD) Non-Af 103, BUN/Creatinine Ratio 24.2 H, Glucose 105 H, Calcium 8.8 Micro: Microbiology 08/05/24 11:40 Sputum, Induced/Lukens Gram Stain - Final 08/05/24 11:40 Sputum, Induced/Lukens Respiratory Culture - Preliminary Streptococcus pneumoniae 08/06/24 13:49 Mucosa - Nasopharyngeal Coronavirus COVID-19 PCR - Final 08/06/24 13:49 Mucosa - Nasopharyngeal Respiratory Panel (PCR) - Final Rhythm Strip Rhythm Strip: Sinus Rhythm Rate: 86 Ectopy: None Physical Exam Narrative Seen and examined. Patient has bleeding from the IV line site. He is on Eliquis 5 mg twice daily. Had polio when he was 6-year-old on right lower extremity. Severe kyphoscoliosis. Usually on home O2 4 to 5 L but you are on 4 L of oxygen and BiPAP at night. Physical exam General: Alert, Oriented x3, Cooperative HEENT: Atraumatic, PERRLA, EOMI, Normocephalic Oral: No Gingival or Mucosal Lesions/ Ulcerations Neck: Supple, No JVD, Negative Carotid Bruits Chest wall/Lungs: Kyphoscoliotic chest wall. Air entry diminished in bilateral lung bases. No crepitation/rhonchi Cardiovascular: Regular rate, Regular Rhythm, Normal S1, Normal S2, No M/G/R Abdomen: Bowel Sounds Present, Soft, Non Tender, Non-Distended : No dysuria. No renal angle tenderness. No suprapubic tenderness. Extremities: No edema, Capillary Refill Less than 3 Seconds Skin: No rashes, No breakdown Musculoskeletal: Right lower leg and thigh, muscle atrophy. Left knee and hip 4/5. Neurological: Cranial nerves II-XII grossly intact, DTR 2+/4. No acute focal neurological deficit. Psych/Mental Status: Normal Affect, Appropriate. Assessment & Plan Assessment/Plan (1) Acute on chronic respiratory failure with hypoxia and hypercapnia: (2) Restrictive lung disease: PLAN: Plan Patient is a 79-year-old gentleman admitted with altered mental status 1. Acute metabolic encephalopathy ? Secondary to acute hypoxic and hypercapnic respiratory failure. Patient was intubated in the emergency department admitted to the intensive care unit repeat ABGs ordered for initial response to intubation ?08/06/2024; patient level of sensorium improving following mechanical ventilation and subsequent extubation ? 08/07/2024Patient seen. Appears to be back to his baseline. Apparently did with his Pap therapy gave him n.p.o. sepsis workup undertaken the day prior so far negative to date. WBC count however remains elevated. Plan is for patient to be transferred from ICU to progressive care unit 08/08: Acute encephalopathy resolved 2. Acute hypercapnic and hypoxic respiratory failure ? Patient was intubated in the emergency department subsequently admitted to the intensive care unit. Initial vent settings written in consultation placed to pulmonary/intensive medicine for ICU management. Repeat checks x-ray ordered for tube placement as well as NG tube position ?08/06/2024; patient successfully weaned off the vent ? 08/08/2024; Currently on 4 L flow per minute 3. Recently diagnosed A-fib with RVR ? Patient was discharged on sotalol as well as systemic anticoagulation with apixaban. 08/08: Patient had an episode of bleeding which was mild but but patient took pictures and thought it significant. Eliquis held. H&H ordered 4. 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 Patient has significant complications including restrictive lung disease 5. Essential hypertension ? Patient blood pressure prior to admission was relatively low 83/56. Antihypertensive subsequently held. Admitted to the intensive care unit for close monitoring 6. Depression ? Patient is on venlafaxine, plan is to resume once of the event 7.. Central sleep apnea ? Patient uses BiPAP at night will resume when patient is extubated 8.. Chronic hypoxic and hypercapnic respiratory failure ? Patient is on continuous home oxygen during the day 9. BPH with lower urinary obstructive symptoms - Patient treated with tamsulosin, will resume following extubation 10. Hypokalemia - Potassium this a.m. is 3.3. Corrected per protocol, repeat labs ordered for monitoring unit 08/08: Hypokalemia resolved 11. Hypomagnesemia ? Magnesium 1.3 corrected per protocol repeat labs ordered in a.m. for monitor 08/08: Hypomagnesemia corrected, repeat magnesium 2.0 12. DVT prophylaxis Hold Eliquis as mentioned above. Charges/Coding Visit Charges Inpatient E&M: 92376 Subs Hosp L2
[2024-08-08 16:18] LABS: Hematocrit 36.5 % (40-54); Hemoglobin 12.1 g/dL (13.0-16.5)
[2024-08-09] VITALS (14 sets, daily range): BP systolic 122–149; BP diastolic 78–99; PULSE 67–96; RESP 15–26; TEMP 36.6–36.7; O2SAT 94–100; BMI 24.1
[2024-08-09] MEDS: Ipratropium/Albuterol Sulfate 3 ML AMPUL.NEB INHALATION ×3 (02:33→10:46)
[2024-08-09 05:39] LABS: Absolute Lymphocyte Count 0.84 X10^3/uL (0.83-4.51); Absolute Neutrophil Count 4.6 X10^3/uL (2.0-7.7); Basophil# 0.05 X10^3/uL; Basophil% 0.8 % (0-1); Hematocrit 35.3 % (40-54); Hemoglobin 11.6 g/dL (13.0-16.5); Lymphocyte # 0.84 X10^3/ul (0.83-4.51); Lymphocyte % 12.7 % (19-41); Mean Corp Hgb Conc 32.9 g/dL (32-36); Mean Corpuscular Hgb 30.3 pg (27.0-32.0); Mean Corpuscular Volume 92.2 fL (80-94); Mean Platelet Vol. 10.4 fl (6.2-12.0); Monocyte# 0.84 X10^3/uL; Monocyte% 12.7 % (0-10); NRBC Flagged by Analyzer 0 % (0-5); Neutrophil # 4.64 X10^3/uL (2.7-7.7); Neutrophil % 70.2 % (47-70); Platelet Count 292 K/mm3 (150-450); RBC Distribution Width CV 13.3 % (11.6-14.6); RBC Distribution Width SD 44.8 fl (35.1-43.9); Red Blood Count 3.83 M/mm3 (4.6-6.2); White Blood Count 6.6 K/mm3 (4.4-11.0)
[2024-08-09 06:37] LABS: Anion Gap 8 (5-15); BUN 11 mg/dL (4-19); BUN/Creat Ratio 18.3 RATIO (10-20); Carbon Dioxide 34.2 mmol/L (21.0-32.0); Chloride 96 mmol/L (98-108); EST Glomerular Filtration Rate 100 (>60); Estimated Creatinine Clearance 64.75 ml/min (50-250); Glucose 98 mg/dL (70-99); Potassium 3.7 mmol/L (3.3-5.1); Sodium Level 139 mmol/L (133-145)
--- NOTE | 2024-08-09 07:48 | PCM.PN.HOSP ---
Reason for Visit Reason for Visit: Diagnoses Acute and chronic respiratory failure with hypoxia (08/05/24) Acute and chronic respiratory failure with hypercapnia (08/05/24) Other disorders of lung (08/05/24) Objective Data Objective Data Vital Signs: Vital Signs Temp Pulse Resp BP Pulse Ox O2 Del Method O2 Flow Rate 97.9 F 67 18 122/81 H 99 Bi-pap 2 08/09/24 04:56 08/09/24 04:56 08/09/24 04:56 08/09/24 04:56 08/09/24 04:56 08/09/24 04:57 08/08/24 22:50 FiO2 08/09/24 04:40 Oxygen Flow Rate (L/min) 2 Oxygen Delivery Method Bi-pap Weight: 144 lb 13.499 oz Body Mass Index (BMI) 24.1 Intake & Output: Intake and Output for Last 24 Hours 08/07/24 08/08/24 08/09/24 23:59 23:59 23:59 Intake Total 160 / 360 1150 / 1150 Output Total 90 / 440 2450 / 2450 400 / 400 Balance 70 / -80 -1300 / -1300 -400 / -400 Lab / Micro Data 08/09/24 04:54 08/09/24 04:54 Labs: Laboratory Results - last 24 hr 08/08/24 16:05: Hgb 12.1 L, Hct 36.5 L 08/09/24 04:54: WBC 6.6, RBC 3.83 L, Hgb 11.6 L, Hct 35.3 L, MCV 92.2, MCH 30.3, MCHC 32.9, RDW Std Deviation 44.8 H, RDW Coeff of Larry 13.3, Plt Count 292, MPV 10.4, Immature Gran % (Auto) 0.600, Neut % (Auto) 70.2 H, Lymph % (Auto) 12.7 L, [place] % (Auto) 12.7 H, Eos % (Auto) 3.0, Baso % (Auto) 0.8, Absolute Neuts (auto) 4.6, Absolute Lymphs (auto) 0.84, Nucleated RBC % 0, Sodium 139, Potassium 3.7, Chloride 96 L, Carbon Dioxide 34.2 H, Anion Gap 8, BUN 11, Creatinine 0.60 L, Estim Creat Clear Calc 64.75, Est GFR (MDRD) Non-Af 100, BUN/Creatinine Ratio 18.3, Glucose 98, Calcium 9.0 Micro: Microbiology 08/05/24 11:40 Sputum, Induced/Lukens Gram Stain - Final 08/05/24 11:40 Sputum, Induced/Lukens Respiratory Culture - Preliminary Streptococcus pneumoniae 08/06/24 13:49 Mucosa - Nasopharyngeal Coronavirus COVID-19 PCR - Final 08/06/24 13:49 Mucosa - Nasopharyngeal Respiratory Panel (PCR) - Final Rhythm Strip Rhythm Strip: Sinus Rhythm Rate: 86 Ectopy: None Physical Exam Narrative Seen and examined. Patient has bleeding from the IV line site. He is on Eliquis 5 mg twice daily. Had polio when he was 6-year-old on right lower extremity. Severe kyphoscoliosis. Usually on home O2 4 to 5 L but you are on 4 L of oxygen and BiPAP at night. Physical exam General: Alert, Oriented x3, Cooperative HEENT: Atraumatic, PERRLA, EOMI, Normocephalic Oral: No Gingival or Mucosal Lesions/ Ulcerations Neck: Supple, No JVD, Negative Carotid Bruits Chest wall/Lungs: Kyphoscoliotic chest wall. Air entry diminished in bilateral lung bases. No crepitation/rhonchi Cardiovascular: Regular rate, Regular Rhythm, Normal S1, Normal S2, No M/G/R Abdomen: Bowel Sounds Present, Soft, Non Tender, Non-Distended : No dysuria. No renal angle tenderness. No suprapubic tenderness. Extremities: No edema, Capillary Refill Less than 3 Seconds Skin: No rashes, No breakdown Musculoskeletal: Right lower leg and thigh, muscle atrophy. Left knee and hip 4/5. Neurological: Cranial nerves II-XII grossly intact, DTR 2+/4. No acute focal neurological deficit. Psych/Mental Status: Normal Affect, Appropriate. Assessment & Plan Assessment/Plan (1) Acute on chronic respiratory failure with hypoxia and hypercapnia: (2) Restrictive lung disease: PLAN: Plan Patient is a 79-year-old gentleman admitted with altered mental status 1. Acute metabolic encephalopathy ? Secondary to acute hypoxic and hypercapnic respiratory failure. Patient was intubated in the emergency department admitted to the intensive care unit repeat ABGs ordered for initial response to intubation ?08/06/2024; patient level of sensorium improving following mechanical ventilation and subsequent extubation ? 08/07/2024Patient seen. Appears to be back to his baseline. Apparently did with his Pap therapy gave him n.p.o. sepsis workup undertaken the day prior so far negative to date. WBC count however remains elevated. Plan is for patient to be transferred from ICU to progressive care unit 08/08: Acute encephalopathy resolved 2. Acute hypercapnic and hypoxic respiratory failure ? Patient was intubated in the emergency department subsequently admitted to the intensive care unit. Initial vent settings written in consultation placed to pulmonary/intensive medicine for ICU management. Repeat checks x-ray ordered for tube placement as well as NG tube position ?08/06/2024; patient successfully weaned off the vent ? 08/08/2024; Currently on 4 L flow per minute 3. Recently diagnosed A-fib with RVR ? Patient was discharged on sotalol as well as systemic anticoagulation with apixaban. 08/08: Patient had an episode of bleeding which was mild but but patient took pictures and thought it significant. Eliquis held. H&H ordered 4. 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 Patient has significant complications including restrictive lung disease 5. Essential hypertension ? Patient blood pressure prior to admission was relatively low 83/56. Antihypertensive subsequently held. Admitted to the intensive care unit for close monitoring 6. Depression ? Patient is on venlafaxine, plan is to resume once of the event 7.. Central sleep apnea ? Patient uses BiPAP at night will resume when patient is extubated 8.. Chronic hypoxic and hypercapnic respiratory failure ? Patient is on continuous home oxygen during the day 9. BPH with lower urinary obstructive symptoms - Patient treated with tamsulosin, will resume following extubation 10. Hypokalemia - Potassium this a.m. is 3.3. Corrected per protocol, repeat labs ordered for monitoring unit 08/08: Hypokalemia resolved 11. Hypomagnesemia ? Magnesium 1.3 corrected per protocol repeat labs ordered in a.m. for monitor 08/08: Hypomagnesemia corrected, repeat magnesium 2.0 12. DVT prophylaxis Hold Eliquis as mentioned above.
[2024-08-09] MEDS: Pantoprazole Sodium 40 MG Tablet PO (08:57)
[2024-08-09] MEDS: Tamsulosin HCl 0.4 MG Capsule PO (08:57)
[2024-08-09] MEDS: Venlafaxine XR 75 MG Capsule PO (08:57)
[2024-08-09] MEDS: Sotalol Hydrochloride 80 MG Tablet PO (08:57)
--- NOTE | 2024-08-09 10:45 | TREXTCAR_ITS ---
Diet Diet Order/Speech Therapy: 08/08/24 18:12 Diet: Regular - General Food consistency:: Soft & Bite Sized Liquid Consistency:: Regular/Thin Diet Comments: Distant sup, for liquids swallow hard and fast Routine Orders/Code Status Suppository Type: Dulcolax 10mg Suppository Frequency: Daily PRN DC O2, CPAP, BIPAP needs Home O2 Discharge instructions: Yes Type of respiratory needs?: Oxygen Oxygen frequency: Continuous Continuous oxygen liters per minute: 2 Therapies Extremity Affected:: Bilateral Lower Physical Therapy: Eval and Treat Occupational Therapy: Eval and Treat Speech Therapy: Eval and Treat Problem/Diagnosis (1) Acute on chronic respiratory failure with hypoxia and hypercapnia: Status: Chronic Code(s): J96.21 - Acute and chronic respiratory failure with hypoxia; J96.22 - Acute and chronic respiratory failure with hypercapnia (2) Restrictive lung disease: Status: Acute Code(s): J98.4 - Other disorders of lung Plan Patient is a 79-year-old gentleman admitted with altered mental status 1. Acute metabolic encephalopathy ? Secondary to acute hypoxic and hypercapnic respiratory failure. Patient was intubated in the emergency department admitted to the intensive care unit repeat ABGs ordered for initial response to intubation ?08/06/2024; patient level of sensorium improving following mechanical ventilation and subsequent extubation ? 08/07/2024Patient seen. Appears to be back to his baseline. Apparently did with his Pap therapy gave him n.p.o. sepsis workup undertaken the day prior so far negative to date. WBC count however remains elevated. Plan is for patient to be transferred from ICU to progressive care unit 08/08: Acute encephalopathy resolved 2. Acute hypercapnic and hypoxic respiratory failure ? Patient was intubated in the emergency department subsequently admitted to the intensive care unit. Initial vent settings written in consultation placed to pulmonary/intensive medicine for ICU management. Repeat checks x-ray ordered for tube placement as well as NG tube position ?08/06/2024; patient successfully weaned off the vent ? 08/08/2024; Currently on 4 L flow per minute 3. Recently diagnosed A-fib with RVR ? Patient was discharged on sotalol as well as systemic anticoagulation with apixaban. 08/08: Patient had an episode of bleeding which was mild but but patient took pictures and thought it significant. Kesha galindo. H&H ordered 4. 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 Patient has significant complications including restrictive lung disease 5. Essential hypertension ? Patient blood pressure prior to admission was relatively low 83/56. Antihypertensive subsequently held. Admitted to the intensive care unit for close monitoring 6. Depression ? Patient is on venlafaxine, plan is to resume once of the event 7.. Central sleep apnea ? Patient uses BiPAP at night will resume when patient is extubated 8.. Chronic hypoxic and hypercapnic respiratory failure ? Patient is on continuous home oxygen during the day 9. BPH with lower urinary obstructive symptoms - Patient treated with tamsulosin, will resume following extubation 10. Hypokalemia - Potassium this a.m. is 3.3. Corrected per protocol, repeat labs ordered for monitoring unit 08/08: Hypokalemia resolved 11. Hypomagnesemia ? Magnesium 1.3 corrected per protocol repeat labs ordered in a.m. for monitor 08/08: Hypomagnesemia corrected, repeat magnesium 2.0 12. DVT prophylaxis Hold Eliquis as mentioned above. Allergies/Procedures Done in Hospital Allergies metronidazole (From Flagyl) Adverse Reaction (Verified 07/22/24 12:52) Nausea/Vom/Diarrhea VOMITING Type of Care/Length of Stay Estimated LOS: Convalescent Care Less Than 30 days Type of Care Needed: Skilled Rehab Potential: Good Prognosis: Good Additional Orders/Day of Discharge Day of Discharge: 08/09/24 Dietary and Speech Recommendations Dietitian Recommendations/Changes: Recommend advanced diet as tolerated to regular, no added salt diet with 120ml EPHP 4x daily with medpass per LOGISTICS AND PLANNING MANAGER consistency/texture recommendations. Will monitor weight trends. Discharge Plan Admission Admit Date/Time: 08/05/24 10:13 Primary Reason for Your Visit: Hypercapnic respiratory failure. Attending Provider: Zay Mckenzie Primary Care Provider: Luis Medina Consulting Providers: Familia Michel Instructions Additional Instructions / Restrictions: Workup for esophageal dysphagia, outpatient in GI office. Discharge Orders/Prescriptions Prescriptions: New ipratropium-albuterol 0.5 mg-3 mg(2.5 mg base)/3 mL Solution For Nebulization 3 ml inhalation Q4H.RT PRN (Reason: sob) Qty: 0 0RF Continued cyanocobalamin (vitamin B-12) 500 mcg tablet 500 mcg PO DAILY tamsulosin 0.4 MG capsule 0.4 mg PO BID venlafaxine 75 mg capsule,extended release 24hr 75 mg PO DAILY diphenhydramine HCl [Allergy (diphenhydramine)] 25 mg capsule 25 mg PO QHS sotalol 80 mg Tablet 80 mg PO BID 60 Days Qty: 120 0RF losartan 50 mg Tablet 50 mg PO QHS Qty: 0 0RF Held Eliquis 5 mg Tablet 5 mg PO BID 60 Days Qty: 120 0RF Hold Instructions: Hold for 3 more days. Asked the patient whether he wants. Risk and benefit already explained. Discontinued amoxicillin-pot clavulanate 875-125 mg tablet 1 tab PO BID 4 Days Qty: 8 0RF Referrals / Follow Up: Familia Michel MD [Med Staff - Active Staff] - Luis Medina MD [Primary Care Provider] - Zay Mckenzie MD [Med Staff - Active Staff] - Rey Vázquez DO [Med Staff - Active Staff] - Within 1 Month (Workup for dysphagia) Derrick Dawn MD [Emergency Provider] - Nicole Murphy [Emergency Nurse] - Disposition Disposition (needs filled in before D/C Order can be placed): Nursing Home Facility
[2024-08-09] MEDS: Ensure Plus High Protein 120 ML LIQUID PO (11:46)
[2024-08-09] MEDS: Acetaminophen 325 MG Tablet 650 MG PO (11:46)
[2024-08-09] MEDS: oxyCODONE 5 MG Tablet PO (13:47)
--- NOTE | 2024-08-09 13:53 | PCM.DC.SUM ---
Providers Date of Admission: 08/05/24 Date of Discharge: 08/09/24 Primary Care Physician: Dr. Luis Medina MD Consultations 08/05/24 11:19 Consult: Programming Development Project Manager / Pulmonary Medicine Routine Consulting Provider: Pulmonary Medicine bharath [place] Reason for Consult: Vent management EMERGENT Consult: Yes Notified: Yes Date Notified: 08/05/24 Time Notified: 10:19 Method of Notification: ED Physician Initiated 08/08/24 18:07 Consult: Gastroenterology Routine Consulting Provider: [facility] Reason for Consult: Dysphagia EMERGENT Consult: No Notified: Yes Date Notified: 08/08/24 Time Notified: 18:07 Method of Notification: Verbal Reason For Visit: ACUTE RESPIRATORY FAILURE Diagnosis Discharge Diagnosis (1) Acute on chronic respiratory failure with hypoxia and hypercapnia: Status: Chronic Code(s): J96.21 - Acute and chronic respiratory failure with hypoxia; J96.22 - Acute and chronic respiratory failure with hypercapnia (2) Restrictive lung disease: Status: Acute Code(s): J98.4 - Other disorders of lung Plan Patient is a 79-year-old gentleman admitted with altered mental status 1. Acute metabolic encephalopathy ? Secondary to acute hypoxic and hypercapnic respiratory failure. Patient was intubated in the emergency department admitted to the intensive care unit repeat ABGs ordered for initial response to intubation ?08/06/2024; patient level of sensorium improving following mechanical ventilation and subsequent extubation ? 08/07/2024Patient seen. Appears to be back to his baseline. Apparently did with his Pap therapy gave him n.p.o. sepsis workup undertaken the day prior so far negative to date. WBC count however remains elevated. Plan is for patient to be transferred from ICU to progressive care unit 08/08: Acute encephalopathy resolved 2. Acute hypercapnic and hypoxic respiratory failure ? Patient was intubated in the emergency department subsequently admitted to the intensive care unit. Initial vent settings written in consultation placed to pulmonary/intensive medicine for ICU management. Repeat checks x-ray ordered for tube placement as well as NG tube position ?08/06/2024; patient successfully weaned off the vent ? 08/08/2024; Currently on 4 L flow per minute 08/09: Patient on 2 to 3 L of oxygen. Continued 3. Recently diagnosed A-fib with RVR ? Patient was discharged on sotalol as well as systemic anticoagulation with apixaban. 08/08: Patient had an episode of bleeding which was mild but but patient took pictures and thought it significant. Eliquis held. H&H ordered 08/09: Advised to hold Eliquis for 3 more days. Patient very skeptical of taking Eliquis as he knows he has fall risk, kyphoscoliosis and polio. Risk and benefit explained well including risk for thromboembolic stroke. He has not decided yet. 4. 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 Patient has significant complications including restrictive lung disease 5. Essential hypertension ? Patient blood pressure prior to admission was relatively low 83/56. Antihypertensive subsequently held. Admitted to the intensive care unit for close monitoring 6. Depression ? Patient is on venlafaxine, plan is to resume once of the event 7.. Central sleep apnea ? Patient uses BiPAP at night will resume when patient is extubated 8.. Chronic hypoxic and hypercapnic respiratory failure ? Patient is on continuous home oxygen during the day 9. BPH with lower urinary obstructive symptoms - Patient treated with tamsulosin, will resume following extubation 10. Hypokalemia - Potassium this a.m. is 3.3. Corrected per protocol, repeat labs ordered for monitoring unit 08/08: Hypokalemia resolved 11. Hypomagnesemia ? Magnesium 1.3 corrected per protocol repeat labs ordered in a.m. for monitor 08/08: Hypomagnesemia corrected, repeat magnesium 2.0 12. DVT prophylaxis Oropharyngeal/esophageal dysphagia: Patient states that food stuck at the level of throat at suprasternal notch. Patient had modified barium swallow which shows signs and symptoms of esophageal retention for at least 30 minutes after a meal. Compensatory strategies explained. Dr. Gregory was consulted but has not seen yet. It is chronic symptoms therefore do not think patient has foreign body or obstruction to need emergent EGD. Dr. Vázquez can be consulted in TCU otherwise follow-up in GI office for barium esophagram and esophageal manometry. Hold Eliquis as mentioned above. Medications at Discharge Home Medications tamsulosin 0.4 mg capsule 0.4 mg PO BID prostate 02/03/20 venlafaxine 75 mg capsule,extended release 24 hr 75 mg PO DAILY MOOD 05/31/22 cyanocobalamin (vitamin B-12) 500 mcg tablet 500 mcg PO DAILY supplement 07/10/24 diphenhydramine HCl 25 mg capsule (Allergy (diphenhydramine)) 25 mg PO QHS allergies 07/22/24 apixaban 5 mg tablet (Eliquis) 5 mg PO BID Blood thinner 60 days #120 tabs 07/24/24 Held on 08/09/24. Instructions: Hold for 3 more days. Asked the patient whether he wants. Risk and benefit already explained. sotalol 80 mg tablet 80 mg PO BID BP 60 days #120 tabs 07/24/24 losartan 50 mg tablet 50 mg PO QHS BP #0 tabs 07/28/24 ipratropium 0.5 mg-albuterol 3 mg (2.5 mg base)/3 mL nebulization soln 3 ml inhalation Q4H.RT PRN sob #0 mL 08/09/24 Physical Exam Narrative Seen and examined. IV line was discontinued patient started bleeding. Hypokalemia resolved. Physical exam General: Alert, Oriented x3, Cooperative HEENT: Atraumatic, PERRLA, EOMI, Normocephalic Oral: No Gingival or Mucosal Lesions/ Ulcerations Neck: Supple, No JVD, Negative Carotid Bruits Chest wall/Lungs: Kyphoscoliotic chest wall. Air entry diminished in bilateral lung bases. No crepitation/rhonchi Cardiovascular: Regular rate, Regular Rhythm, Normal S1, Normal S2, No M/G/R Abdomen: Bowel Sounds Present, Soft, Non Tender, Non-Distended : No dysuria. No renal angle tenderness. No suprapubic tenderness. Extremities: No edema, Capillary Refill Less than 3 Seconds Skin: No rashes, No breakdown Musculoskeletal: Right lower leg and thigh, muscle atrophy. Left knee and hip 4/5. Neurological: Cranial nerves II-XII grossly intact, DTR 2+/4. No acute focal neurological deficit. Psych/Mental Status: Normal Affect, Appropriate. Weight / BMI Weight Weight: 144 lb 13.499 oz Body Mass Index (BMI) 24.1 ABG / Lab / Microbiology Data 08/09/24 04:54 08/09/24 04:54 Laboratory: Laboratory Results - last 24 hr 08/08/24 16:05: Hgb 12.1 L, Hct 36.5 L 08/09/24 04:54: WBC 6.6, RBC 3.83 L, Hgb 11.6 L, Hct 35.3 L, MCV 92.2, MCH 30.3, MCHC 32.9, RDW Std Deviation 44.8 H, RDW Coeff of Larry 13.3, Plt Count 292, MPV 10.4, Immature Gran % (Auto) 0.600, Neut % (Auto) 70.2 H, Lymph % (Auto) 12.7 L, Barber % (Auto) 12.7 H, Eos % (Auto) 3.0, Baso % (Auto) 0.8, Absolute Neuts (auto) 4.6, Absolute Lymphs (auto) 0.84, Nucleated RBC % 0, Sodium 139, Potassium 3.7, Chloride 96 L, Carbon Dioxide 34.2 H, Anion Gap 8, BUN 11, Creatinine 0.60 L, Estim Creat Clear Calc 64.75, Est GFR (MDRD) Non-Af 100, BUN/Creatinine Ratio 18.3, Glucose 98, Calcium 9.0 Microbiology: Microbiology 08/05/24 11:40 Sputum, Induced/Lukens Gram Stain - Final 08/05/24 11:40 Sputum, Induced/Lukens Respiratory Culture - Preliminary Streptococcus pneumoniae 08/06/24 13:49 Mucosa - Nasopharyngeal Coronavirus COVID-19 PCR - Final 08/06/24 13:49 Mucosa - Nasopharyngeal Respiratory Panel (PCR) - Final D/C Instructions DC O2, CPAP, BIPAP Needs Home O2 Discharge instructions: Yes Type of respiratory needs?: Oxygen Oxygen frequency: Continuous Continuous oxygen liters per minute: 2 DC home with Oxygen: Yes Home O2 MD Review: I have reviewed the oxygen testing, and the patient qualifies for home oxygen equipment and portability. The patient is mobile in the home and the community. Meaningful Use Info Meaningful Use Meaningful Use Diagnoses (Choose all that apply): None applicable Ischemic Stroke Statin Dosing Therapy Reference: STATIN DOSE THERAPY REFERENCE: * Patients > 75 years receive moderate or high dose statin therapy. * Patients 75 years or YOUNGER should receive HIGH intensity statin dose unless contraindicated. You will be required to document reason for non-treatment if statin daily dose does not meet guidelines. HIGH DOSE STATIN THERAPY DAILY Atorvastatin > than or = to 40 mg Rosuvastatin > than or = to 20 mg Amlodipine + Atorvastatin > than or = to 2.5/40 mg Ezetimibe + Simvastatin 10/80 mg Simvastatin 80mg Discharge Plan Admission Admit Date/Time: 08/05/24 10:13 Primary Reason for Your Visit: Hypercapnic respiratory failure. Attending Provider: Zay Mckenzie Primary Care Provider: Luis Medina Consulting Providers: Familia Michel Instructions Additional Instructions / Restrictions: Workup for esophageal dysphagia, outpatient in GI office. Discharge Orders/Prescriptions Prescriptions: New ipratropium-albuterol 0.5 mg-3 mg(2.5 mg base)/3 mL Solution For Nebulization 3 ml inhalation Q4H.RT PRN (Reason: sob) Qty: 0 0RF Continued cyanocobalamin (vitamin B-12) 500 mcg tablet 500 mcg PO DAILY tamsulosin 0.4 MG capsule 0.4 mg PO BID venlafaxine 75 mg capsule,extended release 24hr 75 mg PO DAILY diphenhydramine HCl [Allergy (diphenhydramine)] 25 mg capsule 25 mg PO QHS sotalol 80 mg Tablet 80 mg PO BID 60 Days Qty: 120 0RF losartan 50 mg Tablet 50 mg PO QHS Qty: 0 0RF Held Eliquis 5 mg Tablet 5 mg PO BID 60 Days Qty: 120 0RF Hold Instructions: Hold for 3 more days. Asked the patient whether he wants. Risk and benefit already explained. Discontinued amoxicillin-pot clavulanate 875-125 mg tablet 1 tab PO BID 4 Days Qty: 8 0RF Referrals / Follow Up: Familia Michel MD [Med Staff - Active Staff] - Luis Medina MD [Primary Care Provider] - Zay Mckenzie MD [Med Staff - Active Staff] - Rey Vázquez DO [Med Staff - Active Staff] - Within 1 Month (Workup for dysphagia) Derrick Dawn MD [Emergency Provider] - Nicole Murphy [Emergency Nurse] - Disposition Disposition (needs filled in before D/C Order can be placed): [facility] Charges/Coding Visit Charges Inpatient E&M: 50811 Disch Hosp >30min
--- NOTE | 2024-08-09 15:30 | NURSING ---
Report called to Dot KELLER, on TCU at 1530.
== END 2024-08-09 16:08 | disposition skilled nursing facility (03) | DRG 208 ==
LOC: ED 10:45 → ICU 10:48 → PCU 08-07 13:12
PROVIDERS: Admitting Provider Internal Medicine; Emergency Provider Emergency Medicine; PCP Family Medicine; Visit Provider Internal Medicine
DX: J96.21 Acute and chronic respiratory failure with hypoxia (principal); G93.41 Metabolic encephalopathy; I10 Essential (primary) hypertension; F32.A Depression, unspecified; I48.91 Unspecified atrial fibrillation; G47.31 Primary central sleep apnea; J96.22 Acute and chronic respiratory failure with hypercapnia; E87.6 Hypokalemia; N40.1 Benign prostatic hyperplasia with lower urinary tract symptoms; Z79.899 Other long term (current) drug therapy
CPT/HCPCS: 31500; 31720; 36415; 36600; 51702; 70450; 71045; 74018; 74230; 80048; 80053; 82550; 82803; 83605; 83735; 84100; 84478; 85014; 85018; 85025; 87070; 87077; 87186; 87205; 87633; 87635; 92526; 92610; 92611; 93005; 94002; 94003; 94640; 94660; 94668; 94762; 97116; 97162; 97163; 97167; 97530; 97535; 97802; 97803; 99252; 99285; A4216; G0463; J0330

== ENCOUNTER 2024-08-09 16:56 | Inpatient (IN) | payer MEDICARE, SELFPAY ==
[2024-08-09 17:04] VITALS: BP 164/135; PULSE 79; RESP 18; TEMP 36.5; O2SAT 96; BMI 26.0
--- NOTE | 2024-08-09 18:31 | HP.PCM_ITS ---
HPI - General General Date of Admission: 08/09/24 Date of Service: 08/11/24 Chief Complaint: Here for rehabilitation. 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 pH 7.15, pCO2 130.6. Patient intubated. 08/05/2024 Admit ICU. Intubated, Ventilated. Hold Eliquis for atrial fibrillation while on ventilator. 08/06/2024 Extubated, Encephalopathy improved. Sotalol, Eliquis for atrial fibrillation with rapid ventricular response. Hold blood pressure medications due to hypotension. Correct potassium, Correct Magnesium. 08/07/2024 Baseline, sepsis workup negative. Transfer from ICU to PCU. Did not wear PAP overnight, oxygen 4 liters per nasal cannula. AVAPS therapy with naps, and overnight. Lovenox for DVT prophylaxis, encourage incentive spirometry, mobilize patient. 08/08/2024 Bleeding from IV site, on Eliquis 5mg bid, Eliquis held, check H&H. Home oxygen 4-5 liters per NC. Current oxygen 4 liters per NC, BiPAP at night. Hypokalemia resolved. Hypomagnesemia resolved. 08/09/2024 Admit to TCU with debility, here for rehabilitation, strengthening, prior to discharge home with . [facility] Medical History 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 Wears glasses Cancer Depression Claustrophobia Anxiety Alcohol use Redness of skin Uses crutches Arthritis Bladder disease Back pain History of edema History of diverticulitis Post-polio syndrome Non-smoker BiPAP (biphasic positive airway pressure) dependence History of CHF (congestive heart failure) On home oxygen therapy History of pain when walking History of stress test History of echocardiogram Chronic respiratory failure with hypoxia and hypercapnia On mechanically assisted ventilation Post-poliomyelitis syndrome Acute on chronic respiratory failure with hypoxia and hypercapnia Hypertension Lumbar radicular pain Degenerative scoliosis Scoliosis Segmental dysfunction of thoracic region Home Medications ?Medication ?Instructions ?Recorded ?Last Taken ?Type tamsulosin 0.4 mg capsule 0.4 mg PO BID prostate 02/0208/09/24 History venlafaxine 75 mg capsule,extended 75 mg PO DAILY MOOD 05/31/22 08/09/24 History release 24 hr cyanocobalamin (vitamin B-12) 500 500 mcg PO DAILY sup plement 07/10/24 07/28/24 History mcg tablet diphenhydramine HCl 25 mg capsule 25 mg PO QHS allergi es 07/22/24 07/21/24 History (Allergy (diphenhydramine)) apixaban 5 mg tablet (Eliquis) 5 mg PO BID Blood thinn er 60 days 07/24/24 08/08/24 Rx Held on 08/09/24. #120 tabs Instructions: Hold for 3 more days. Asked the patient whether he wants. Risk and benefit already explained. sotalol 80 mg tablet 80 mg PO BID BP 60 days #120 tabs 07/24/24 08/09/24 Rx losartan 50 mg tablet 50 mg PO QHS BP #0 tabs 11/14 Unknown Rx ipratropium 0.5 mg-albuterol 3 mg 3 ml inhalation Q4H. RT PRN sob #0 08/09/24 08/09/24 Rx (2.5 mg base)/3 mL nebulization mL soln Allergy/AdvReac Type Severity Reaction Status Date / Time metronidazole (From Flagyl) AdvReac Nausea/Vom/ Verified 07/22/24 12:52 Diarrhea Family History Father Myocardial infarction Heart disease Mother Shy-Drager syndrome Other CVA (cerebral vascular accident) Surgical History History of selective injection of anesthetic agent around lumbar nerve root Hx of lithotripsy History of cardiac catheterization Hx of cystoscopy H/O adenoidectomy History of uvulectomy Hip fracture, right History of open reduction and internal fixation (ORIF) procedure Right tibial fracture H/O spinal fusion Social History household members: spouse housing: house Smoking Status: Never smoker substance use type: does not use ROS Constitutional Constitutional: Reports weakness; Denies chills, fever(s) or weight gain ENT HEENT: Denies headache(s), nasal congestion or nasal discharge Cardiovascular Cardiovascular: Denies chest pain or palpitations Respiratory/Chest Respiratory/Chest: Denies cough, excessive phlegm production or shortness of breath with exertion Gastrointestinal Gastrointestinal: Denies abdominal pain, nausea or vomiting Genitourinary Genitourinary: Denies dysuria Musculoskeletal Musculoskeletal: Denies joint pain or joint swelling Integumentary Integumentary: Denies rash or wounds Neurologic Neurologic: Denies focal weakness, numbness or tingling Psychiatric Psychiatric: Denies anxiety, auditory hallucinations, depression, homicidal ideation or suicidal ideation Vital Signs Vital Signs Vital Signs: 08/09/24 17:04 Temperature 97.7 F L Temperature Source Temporal Pulse Rate 79 Respiratory Rate 18 Blood Pressure 164/135 H Blood Pressure Mean 144 Blood Pressure Source Monitor Pulse Ox 96 Oxygen Delivery Method Room Air Weight Weight: 68.855 kg Body Mass Index (BMI) 26.0 Physical Exam Const alert General Appearance: cooperative HEENT normocephalic HEENT Narrative: AVAPS mask on. Eyes PERRL and EOMs intact bilaterally Neck supple, no JVD and no carotid bruits Resp normal respiratory effort, normal air movement and clear to auscultation bilaterally Cardio regular rate and regular rhythm GI normal to inspection, nondistended, normoactive bowel sounds, non-tender and non-distended Extremity normal capillary refill General Extremity: Negative for edema Skin no rashes or lesions noted General Skin Exam: no breakdown Psych affect normal Appearance: appropriate Results Lab / Micro Data 08/10/24 05:10 08/10/24 05:10 Assessment & Plan Assessment/Plan (1) Debility: (2) Unresponsiveness: (3) Acute encephalopathy: (4) Acute on chronic respiratory failure with hypoxia and hypercapnia: (5) Atrial fibrillation with rapid ventricular response: (6) Vitamin B12 deficiency: (7) Essential (primary) hypertension: (8) BPH (benign prostatic hypertrophy): (9) Depression: (10) 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 * Debility - PT/OT. * Dysphagia - ST. * Pain - Tylenol 1000mg q6 prn pain (1-10). * Bowel - senna/colace 1 tablet bid, Magnesium citrate 300mL daily prn. * Adult immunization - Administer pneumonia vaccine, covid vaccine, flu vaccine as appropriate. * DVT prophylaxis - Eliquis. * Insomnia - Tylenol 1000mg qhs, Melatonin 10mg qhs, avoid sedating medications due to history of CO2 retention. * Atrial fibrillation - Sotalol 80mg bid, Eliquis 5mg bid. * Vitamin B12 deficiency - B12 500mcg daily. 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 * Hypertension - Sotalol 80mg bid, Losartan 50mg qhs. * BPH - Tamsulosin 0.4mg bid. * Depression - Venlafaxine XR 75mg daily, stable chronic intermediate use, GDR not recommended.
[2024-08-09] MEDS: Senna/Docusate Sodium 1 Tablet PO (21:59)
[2024-08-09] MEDS: Acetaminophen 500 MG Tablet 1000 MG PO (22:00)
[2024-08-09] MEDS: Sotalol Hydrochloride 80 MG Tablet PO (22:00)
[2024-08-09] MEDS: MELATONIN 10 MG TABLET PO (22:00)
[2024-08-09] MEDS: Losartan Potassium 50 MG Tablet PO (22:00)
[2024-08-09] MEDS: Tamsulosin HCl 0.4 MG Capsule PO (22:01)
[2024-08-10 05:27] LABS: Absolute Lymphocyte Count 0.71 X10^3/uL (0.83-4.51); Absolute Neutrophil Count 4.8 X10^3/uL (2.0-7.7); Basophil# 0.04 X10^3/uL; Basophil% 0.6 % (0-1); Eosinophil# 0.21 X10^3/uL; Eosinophils% 3.2 % (0-5); Hematocrit 38.6 % (40-54); Hemoglobin 12.5 g/dL (13.0-16.5); Lymphocyte # 0.71 X10^3/ul (0.83-4.51); Lymphocyte % 10.8 % (19-41); Mean Corp Hgb Conc 32.4 g/dL (32-36); Mean Corpuscular Hgb 30.4 pg (27.0-32.0); Mean Corpuscular Volume 93.9 fL (80-94); Mean Platelet Vol. 9.7 fl (6.2-12.0); Monocyte# 0.82 X10^3/uL; Monocyte% 12.5 % (0-10); NRBC Flagged by Analyzer 0 % (0-5); Neutrophil # 4.79 X10^3/uL (2.7-7.7); Neutrophil % 72.7 % (47-70); Platelet Count 311 K/mm3 (150-450); RBC Distribution Width CV 13.1 % (11.6-14.6); RBC Distribution Width SD 44.7 fl (35.1-43.9); Red Blood Count 4.11 M/mm3 (4.6-6.2); White Blood Count 6.6 K/mm3 (4.4-11.0)
[2024-08-10 07:14] LABS: Anion Gap 11 (5-15); BUN 11 mg/dL (4-19); BUN/Creat Ratio 19.9 RATIO (10-20); Calcium,Total 9.3 mg/dL (7.6-11.0); Carbon Dioxide 33.2 mmol/L (21.0-32.0); Chloride 98 mmol/L (98-108); Creatinine, Serum 0.56 mg/dL (0.70-1.20); EST Glomerular Filtration Rate 101 (>60); Estimated Creatinine Clearance 64.75 ml/min (50-250); Glucose 109 mg/dL (70-99); Sodium Level 142 mmol/L (133-145)
[2024-08-10] MEDS: Sotalol Hydrochloride 80 MG Tablet PO ×2 (10:36→22:10)
[2024-08-10] MEDS: Venlafaxine XR 75 MG Capsule PO (10:37)
[2024-08-10] MEDS: Tamsulosin HCl 0.4 MG Capsule PO ×2 (10:37→22:10)
[2024-08-10] MEDS: Tuberculin,Purif.prot.deriv. 50 TU/ML Vial 0.1 ML ID (10:38)
[2024-08-10] MEDS: Senna/Docusate Sodium 1 Tablet PO ×2 (10:38→22:11)
[2024-08-10] MEDS: Cyanocobalamin 500 MCG Tablet PO (10:39)
[2024-08-10 16:00] VITALS: BP 143/43; PULSE 54; RESP 18; TEMP 36.9; O2SAT 3
[2024-08-10 16:51] VITALS: PULSE 54; RESP 16
[2024-08-10] MEDS: Losartan Potassium 50 MG Tablet PO (22:10)
[2024-08-10] MEDS: MELATONIN 10 MG TABLET PO (22:11)
[2024-08-10] MEDS: Acetaminophen 500 MG Tablet 1000 MG PO (22:11)
--- NOTE | 2024-08-10 22:36 | NURSING ---
Patient stated that his Cpap was not working right, and that the hospital machine seemed to help him get better rest. ASSISTANT FARM OPERATIONS MANAGER contacted. Patient on continuous Bipap with Pulse Ox monitoring. ASSISTANT FARM OPERATIONS MANAGER to contact Dr. Monsivais regarding problems with patient's machine.
[2024-08-10 22:50] VITALS: PULSE 75; RESP 14; RESP 17; O2SAT 97
--- NOTE | 2024-08-10 23:02 | CPS ---
[2250] Pt. placed on AVAPS. 450VT, 14RR, EPAP 6, MAXP 24, MINP 16, 30% FiO2
[2024-08-11 04:53] VITALS: PULSE 54; RESP 14; RESP 26; O2SAT 97
[2024-08-11 07:33] VITALS: PULSE 65; RESP 14; RESP 19; O2SAT 97
[2024-08-11] MEDS: Cyanocobalamin 500 MCG Tablet PO (08:57)
[2024-08-11] MEDS: Sotalol Hydrochloride 80 MG Tablet PO ×2 (08:57→22:20)
[2024-08-11] MEDS: Venlafaxine XR 75 MG Capsule PO (08:57)
[2024-08-11] MEDS: Ensure Plus High Protein 120 ML LIQUID PO ×2 (08:57→12:35)
[2024-08-11] MEDS: Senna/Docusate Sodium 1 Tablet PO ×2 (08:57→22:21)
[2024-08-11] MEDS: Tamsulosin HCl 0.4 MG Capsule PO ×2 (08:57→22:21)
--- NOTE | 2024-08-11 09:29 | NURSING ---
Box Worker Note; Activity Asset: Dejah Morales has returned to TCU after a brief stay in the hospital. He prefers to be called David Hernandez is independent in his choice of daily activities. He watches TV, reads, has family visits and welcomes visits from the therapy dog when available. Staff will remind him of weekly activities and respect his right to say no.
[2024-08-11 10:00] VITALS: PULSE 60; RESP 16
[2024-08-11] MEDS: Acetaminophen 500 MG Tablet 1000 MG PO ×2 (12:35→22:21)
--- NOTE | 2024-08-11 14:00 | PCM.PN.DRR ---
Documented by User: Yuliet Lowe 08/11/24 14:14 TCU RX Drug Regimen Review Subjective/Objective Subjective/Objective Subjective: TCU Admission. 79 YOM was on TCU but went to ER due to unresponsiveness. Hospitalized for unresponsiveness 2/2 acute on chronic respiratory failure with hypoxia, hypercapnia requiring intubation, complicated by encephalopathy, hypokalemia, hypomagnesemia. Admitted to TCU with debility for strengthening and rehabilitation. Objective: Allergies metronidazole (From Flagyl) Adverse Reaction (Verified 07/22/24 12:52) Nausea/Vom/Diarrhea VOMITING Current Medications Generic Name Dose Route Start Last Admin Trade Name Freq PRN Reason Stop Dose Admin Acetaminophen 1,000 mg 08/09/24 18:07 08/11/24 12:35 Acetaminophen 500 Mg Tablet PO 1,000 mg Q6H PRN PRN Administration Pain Score 1-10 Acetaminophen 1,000 mg 08/09/24 22:00 08/10/24 22:11 Acetaminophen 500 Mg Tablet PO 1,000 mg QHS NIURKA Administration Albuterol/Ipratropium 3 ml 08/09/24 16:52 Ipratropium/Albuterol Sulfate 3 Ml Ampul.Neb INHALATION Q4H.RT PRN sob Apixaban 5 mg 08/12/24 10:00 Apixaban 5 Mg Tablet PO BID NIURKA Cyanocobalamin 500 mcg 08/10/24 10:00 08/11/24 08:57 Cyanocobalamin 500 Mcg Tablet PO 500 mcg DAILY NIURKA Administration Losartan Potassium 50 mg 08/09/24 22:00 08/10/24 22:10 Losartan Potassium 50 Mg Tablet PO 50 mg QHS NIURKA Administration Protocol Magnesium Citrate 300 ml 08/09/24 18:07 Magnesium Citrate 300 Ml PO DAILY PRN Constipation Melatonin 10 mg 08/09/24 22:00 08/10/24 22:11 Melatonin 10 Mg Tablet PO 10 mg QHS NIURKA Administration Nutritional Formula (Lactose Free) 120 ml 08/10/24 17:45 08/11/24 12:35 Ensure Plus High Protein 120 Ml Liquid PO 120 ml TIDCM NIURKA Administration Senna/Docusate Sodium 1 tablet 08/09/24 22:00 08/11/24 08:57 Senna/Docusate Sodium 1 Tablet PO 1 tablet BID NIURKA Administration Sodium Chloride 10 - 40 ml 08/09/24 17:12 0.9% Saline Lock 10 Ml Syringe IV UD PRN SALINE FLUSH Sotalol HCl 80 mg 08/09/24 22:00 08/11/24 08:57 Sotalol Hydrochloride 80 Mg Tablet PO 80 mg BID NIURKA Administration Protocol Tamsulosin HCl 0.4 mg 08/09/24 22:00 08/11/24 08:57 Tamsulosin Hcl 0.4 Mg Capsule PO 0.4 mg BID NIURKA Administration Tuberculin PPD 0.1 ml 08/17/24 10:00 Tuberculin,Purif.Prot.Deriv. 50 Tu/Ml Vial ID 08/17/24 10:01 X1 ONE Venlafaxine HCl 75 mg 08/10/24 10:00 08/11/24 08:57 Venlafaxine Xr 75 Mg Capsule PO 75 mg DAILY NIURKA Administration Problem List (Updated 08/09/24 @ 18:[address] 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) BPH (benign prostatic hypertrophy) (Chronic) Vital Signs Temp Pulse Resp BP Pulse Ox O2 Del Method O2 Flow Rate 98.5 F 60 16 143/43 H 97 Nasal Cannula 2 08/10/24 16:00 08/11/24 10:00 08/11/24 10:00 08/10/24 16:00 08/11/24 07:33 08/11/24 10:00 08/11/24 13:12 FiO2 30 08/11/24 07:33 Oxygen Flow Rate (L/min) 2 Oxygen Delivery Method Nasal Cannula Weight: 68.855 kg Body Mass Index (BMI) 26.0 Sodium 142 mmol/L (133-145) 08/10/24 05:10 Potassium 4.0 mmol/L (3.3-5.1) 08/10/24 05:10 Chloride 98 mmol/L (98-108) 08/10/24 05:10 Carbon Dioxide 33.2 mmol/L (21.0-32.0) H 08/10/24 05:10 Anion Gap 11 (5-15) 08/10/24 05:10 BUN 11 mg/dL (4-19) 08/10/24 05:10 Creatinine 0.56 mg/dL (0.70-1.20) L 08/10/24 05:10 Est GFR (MDRD) Non-Af 101 (>60) 08/10/24 05:10 BUN/Creatinine Ratio 19.9 RATIO (10-20) 08/10/24 05:10 Glucose 109 mg/dL (70-99) H 08/10/24 05:10 Assessment/Plan: Pain: acetaminophen 1000mg PO Q6H PRN pain (1-10) and acetaminophen 1000mg PO QHS. Resident has had 1 dose of PRN acetaminophen for a pain score of 6 in the ankle. Continue to monitor for increased pain, LFTs (last 08/05/24), and PRN usage. 2. Bowel: senna/docusate 1T PO BID and magnesium Citrate 300mL PO daily PRN constipation. Resident has had no doses of magnesium citrate. Last documented bowel movement 08/08/24. Continue to monitor for constipation and PRN usage. 3. Atrial fibrillation/DVT prophylaxis/Hypertension: apixaban 5mg PO BID, sotalol 80mg PO BID and losartan 50mg PO QHS. Continue to monitor for s/sx of bleeding, hemoglobin (last 12.5g/dL 08/10/24), hematocrit (last 38.6% 08/10/24), QTc 433 msec (08/05/24), renal function (last SCr 0.56mg/dL 08/10/24), potassium (last 4.0mmol/L 08/10/24). 4. Restrictive lung disease s/s Polio: Ipratropium/albuterol 3mL inhaled Q4H PRN shortness of breath. Resident has had no doses of ipratropium/albuterol. Continue to monitor for shortness of breath and PRN usage. 5. BPH: Tamsulosin 0.4mg PO BID. Continue to monitor BP/orthostats (last 143/43mmHg 08/10/24). 6. Insomnia: Acetaminophen 1000mg PO QHS and melatonin 10mg PO QHS. Continue to monitor for insomnia improvement, daytime drowsiness, LFTs (last 08/05/24). Avoid sedating medications due to history of CO2 retention. 7. Vitamin B12 deficiency: cyanocobalamin 500mcg PO daily. Please consider ordering a B12 level as there are not levels in the chart. Thanks. Assessment/Plan for indications treated with psychotropic medications: 1. Depression: venlafaxine XR 75 mg PO daily. Please see physician note regarding GDR. Monitor for diarrhea, nausea, appetite/weight loss, anxiety or drowsiness, suicidal thoughts or behaviors (Boxed Warning), symptoms of bleeding, symptoms of serotonin syndrome (including agitation, confusion, hyperreflexia, rigidity/myoclonus, tremor, tachycardia, tachypnea), sodium levels (last Na = 142mmol/L). Monitor blood pressure. Monitor for orthostatic hypotension, including postural dizziness, syncope or falls. Check orthostatic vital signs if suspicion of orthostasis. Monitor for hepatotoxicity (abdominal pain, nausea, jaundice, dark urine, AST/ALT as clinically indicated). Monitor for efficacy including resident symptoms, behaviors and indications of distress. Monitor for tolerability including mental status, cognition, excessive sleepiness, withdrawal or decreased participation in activities and decline in physical functioning. Maximize use of nonpharmacologic/behavioral interventions to facilitate dose reduction or discontinuation as appropriate. Please evaluate the appropriateness of GDR unless contraindicated. If appropriate, GDR should be attempted in 2 separate quarters within the first year of use or admission to TCU. If GDR attempted, monitor resident symptoms/behaviors. Medical chart and medication regimen reviewed. The following medication irregularities or issues were identified: 1. Cyanocobalamin 500mcg PO daily. Please consider ordering a B12 level as there are not levels in the chart. Thanks. Date Date of Note: 08/11/24 Documented by User: Dr. Ezekiel Fitch MD 08/11/24 14:14 TCU RX Drug Regimen Review Provider Comments Provider responsibility Provider Comments to Recommendations by Pharmacy Agree
[2024-08-11 15:24] VITALS: BP 110/58; PULSE 80; RESP 16; TEMP 37; O2SAT 91
--- NOTE | 2024-08-11 17:09 | CASEMGMT ---
Social Work SW met with patient upon readmission. No changes to assessment. SW spoke with pt about change in medical condition and pt's mental health. Pt states he has memory of what happened, and that is a blessing. Pt is in good spirits, no concerns with mood. Pt expressed concern with returning home at time of DC. Pt states he does not feel like his can care for his needs, but plans for this to be a short-term move. Pt inquired about his options. SW educated extensively to AL with skilled HHC in a respite room and approximate cost monthly; SNF, part B therapies, and approximate cost monthly. Educated to nonskilled GUN NUMBERER for homegoing. SW discussed pt's medical complexities and the pros and cons of home, AL and SNF. Pt expressed understanding. SW provided brief written notes on options for pt. SW also discussed palliative care. Educated to medical services to assist with preventing rehospitalizations and managing chronic medical conditions. Pt expressed interest. SW offered to place referral at time of DC to schedule first visit. Pt has POC meeting scheduled in two days and SW to reiterate for /family. SW will continue to follow for DC planning. Bárbara Perez DOCKET SPECIALIST PARTNER INTEGRATION PLANNER
[2024-08-11] MEDS: Losartan Potassium 50 MG Tablet PO (22:21)
[2024-08-11] MEDS: MELATONIN 10 MG TABLET PO (22:21)
[2024-08-11 22:24] VITALS: BP 162/84; PULSE 67
[2024-08-12] VITALS (10 sets, daily range): BP systolic 142–171; BP diastolic 74–90; PULSE 55–79; RESP 14–24; TEMP 36.2–36.7; O2SAT 93–97; BMI 24.7
[2024-08-12 00:08] LABS: Vitamin B12 1286 pg/mL (180-914)
--- NOTE | 2024-08-12 08:27 | NURSING ---
Addendum entered by Irena Molina 08/12/24 12:42: Call again from Linda, she had Dr. Monsivais and Soni Lopez FINISHED GOODS INSPECTOR look at the reports from residents home machine. They say it is an issue with his mask, it is leaking. Discussed with resident, he says he has new mask since was last on TCU. He said he's used it but still feels like the hospital's Bipap works better. Let him know respiratory would work with him tonight to try to get him on his home unit. Updated his primary RN and RT. Addendum entered by Irena Molina 08/12/24 11:22: Call back from Linda with pulmonology, she let nurse know she could pull some reports and see if they think settings need changed. Will call back if anything needs adjusted. Original Note: Left VM with Dr. Monsivais's office and sleep lab to discuss what is needed for resident upon DC as he's been using the facility Bipap here. Per respiratory he will need a new sleep study to have the settings of his machine adjusted.
[2024-08-12] MEDS: Sotalol Hydrochloride 80 MG Tablet PO ×2 (09:04→22:21)
[2024-08-12] MEDS: Cyanocobalamin 500 MCG Tablet PO (09:04)
[2024-08-12] MEDS: Senna/Docusate Sodium 1 Tablet PO ×2 (09:04→22:21)
[2024-08-12] MEDS: APIXABAN 5 MG TABLET PO ×2 (09:04→22:20)
[2024-08-12] MEDS: Tamsulosin HCl 0.4 MG Capsule PO ×2 (09:04→22:20)
[2024-08-12] MEDS: Venlafaxine XR 75 MG Capsule PO (09:04)
[2024-08-12] MEDS: Ensure Plus High Protein 120 ML LIQUID PO ×2 (09:07→17:48)
--- NOTE | 2024-08-12 15:28 | NURSING ---
O2 removed, pt sating at 92%, rechecked 30 minutes later pt at 93%.
--- NOTE | 2024-08-12 15:42 | CASEMGMT ---
Social Work SW received call from this morning requesting to meet with this worker separately this afternoon prior to scheduled POC meeting tomorrow. explained there is expected to be 7-8 family members present at the meeting and she was going to feel overwhelmed and wanted to ask her questions privately. SW agreed and scheduled meeting. However, explained d/t the patient room not being able to accommodate the large democrat, and the amount of people being overwhelming, to limit the attendees to 4 total people. agreed and appreciative of the direction. to notify pt and pt can choose who to have present. SW offered to call 1-2 people, but as the discussion will be more 'basic' in nature, the extended family does not need to be present. - SW met with in office and answered 's questions. initially asked about medical status and about the change in NIV/Bipap. SW directed to the nurse for those answers. inquired about DC options. SW reiterated conversation had with pt the day prior on home with caregivers, AL, or SNF; pros/cons of each setting. educated to palliative care and also agreeable. SW explained the other updates with therapy will be shared at the POC meeting tomorrow. appreciative. SW will continue to follow. Bárbara CANTU FORESTRY FIRE AIDE
[2024-08-12 18:23] LABS: Color, Urine Straw (Yellow); Glucose, Dipstick Normal (Normal); Ketone-Dipstick Negative (Negative); Leukocyte Esterase-Dipstick Negative /ul (Negative); Nitrite-Dipstick Negative (Negative); Occult Blood-Urine 10 /ul (Negative); Protein-Dipstick 15 mg/dl (Negative); Urine Bilirubin Dipstick Negative (Negative); Urine Clarity Clear (Clear); Urine Urobilinogen Normal (Normal)
[2024-08-12 18:47] LABS: Bacteria 0 SEEN /hpf (None Seen); Mucous, Urine 0 SEEN /hpf (<or=2+); Squamous Epithelial Cells - UA 0 SEEN /hpf (0-5)
[2024-08-12 18:50] LABS: Red Blood Cells-Urine 0-5 SEEN /hpf (0-5); White Blood Cells 0-5 SEEN /hpf (0-5)
[2024-08-12] MEDS: Losartan Potassium 50 MG Tablet PO (22:20)
[2024-08-12] MEDS: Acetaminophen 500 MG Tablet 1000 MG PO (22:21)
[2024-08-12] MEDS: MELATONIN 10 MG TABLET PO (22:21)
[2024-08-12] MEDS: Fluticasone 0.05% 1 SPRAY NASAL.SRY NASAL (22:22)
--- NOTE | 2024-08-12 22:48 | CPS ---
PT ENCOURAGED TO USE OWN MACHINE TONIGHT
--- NOTE | 2024-08-13 02:44 | NURSING ---
Patient A/Ox3, self-transferring to and from bathroom without staff assistance or standby. Patient states, I used my call light, but I just cannot wait, I had to go. Patient gait is unsteady at times and therapy recommendation currently is Ax1 with crutches. Patient educated not to self transfer to promote safety and reduce risk of fall and injury, especially with being on oxygen as the tubing creates another risk of tripping. Patient educated fabrication engineer light to request staff assist and to be patient with staff. Stressed to patient that his safety is number one priority for his care. Patient educated that therapy is to decide if patient is appropriate for up ad pedro. Patient verbalizes understanding. Call light within reach, personal items within reach. Patient denies assistance at this time, sitting up in chair watching television.
[2024-08-13 08:27] VITALS: BP 135/74; PULSE 78; RESP 16; TEMP 37.2; O2SAT 96
[2024-08-13] MEDS: Venlafaxine XR 75 MG Capsule PO (08:28)
[2024-08-13] MEDS: Sotalol Hydrochloride 80 MG Tablet PO ×2 (08:28→22:30)
[2024-08-13] MEDS: Tamsulosin HCl 0.4 MG Capsule PO ×2 (08:28→22:30)
[2024-08-13] MEDS: APIXABAN 5 MG TABLET PO ×2 (08:28→22:30)
[2024-08-13] MEDS: Ensure Plus High Protein 120 ML LIQUID PO (08:28)
[2024-08-13] MEDS: Fluticasone 0.05% 1 SPRAY NASAL.SRY NASAL ×2 (08:29→22:30)
[2024-08-13] MEDS: Cyanocobalamin 500 MCG Tablet PO (08:29)
[2024-08-13 10:00] VITALS: O2SAT 93
--- NOTE | 2024-08-13 10:04 | CASEMGMT ---
Social Work IDT met with patient, , two brothers (Bismark and Naeem) and sister Clotilde, for care plan meeting. Discussed patient's progress in PT/OT/ST/SN. Educated to [facility] insurance with NRD 08/15 and continued stay is not guaranteed with each review. Provided pt/family with written communication of insurance process and copay coverage during stay. Reiterated options for DC are home with caregivers, AL or SNF. SW to refer to palliative care at DC. inquired about AL list. SW provided. SW requested once pt/family decides on DC plan to notify this worker and can assist with planning. Family appreciative. SW will continue to follow. Bárbara Perez ORDER DESK CALLER GLASS RIBBON MACHINE OPERATOR
[2024-08-13 12:01] VITALS: RESP 16; O2SAT 93
[2024-08-13] MEDS: MELATONIN 10 MG TABLET PO (22:30)
[2024-08-13] MEDS: Acetaminophen 500 MG Tablet 1000 MG PO (22:30)
[2024-08-13] MEDS: Losartan Potassium 50 MG Tablet PO (22:30)
[2024-08-14 10:00] VITALS: BP 118/84; PULSE 72; RESP 18; TEMP 36.4; O2SAT 96
[2024-08-14] MEDS: Venlafaxine XR 75 MG Capsule PO (10:06)
[2024-08-14] MEDS: Cyanocobalamin 500 MCG Tablet PO (10:06)
[2024-08-14] MEDS: Sotalol Hydrochloride 80 MG Tablet PO ×2 (10:06→20:08)
[2024-08-14] MEDS: Fluticasone 0.05% 1 SPRAY NASAL.SRY NASAL ×2 (10:06→20:07)
[2024-08-14] MEDS: Tamsulosin HCl 0.4 MG Capsule PO ×2 (10:06→20:08)
[2024-08-14] MEDS: APIXABAN 5 MG TABLET PO ×2 (10:06→20:07)
--- NOTE | 2024-08-14 11:39 | CASEMGMT ---
Social Work SW completed BIMS () and PHQ-2 () for MDS assessment. Pt's mood has improved. Bárbara Perez DIGITAL MEDIA INTERN LEARNING SERVICES COORDINATOR
[2024-08-14 13:51] VITALS: O2SAT 92
[2024-08-14] MEDS: Ensure Plus High Protein 120 ML LIQUID PO (17:19)
[2024-08-14] MEDS: MELATONIN 10 MG TABLET PO (20:07)
[2024-08-14] MEDS: Senna/Docusate Sodium 1 Tablet PO (20:08)
[2024-08-14] MEDS: Losartan Potassium 50 MG Tablet PO (20:08)
[2024-08-14] MEDS: Acetaminophen 500 MG Tablet 1000 MG PO (20:08)
[2024-08-15] MEDS: Sotalol Hydrochloride 80 MG Tablet PO ×2 (08:48→20:55)
[2024-08-15] MEDS: APIXABAN 5 MG TABLET PO ×2 (08:48→20:56)
[2024-08-15] MEDS: Venlafaxine XR 75 MG Capsule PO (08:48)
[2024-08-15] MEDS: Fluticasone 0.05% 1 SPRAY NASAL.SRY NASAL ×2 (08:49→20:57)
[2024-08-15] MEDS: Senna/Docusate Sodium 1 Tablet PO ×2 (08:49→20:55)
[2024-08-15] MEDS: Tamsulosin HCl 0.4 MG Capsule PO ×2 (08:49→20:56)
[2024-08-15] MEDS: Cyanocobalamin 500 MCG Tablet PO (08:49)
--- NOTE | 2024-08-15 11:05 | MDS.RN ---
Pain assessment for MDS complete.
[2024-08-15 11:14] VITALS: PULSE 85; RESP 16; O2SAT 91
[2024-08-15 13:52] VITALS: BP 118/71; PULSE 85; RESP 18; TEMP 36.7; O2SAT 91
--- NOTE | 2024-08-15 14:33 | NURSING ---
Resident returned from GI appt w/ new orders. Orders entered. Order for esophagram, per resident office will call him to schedule of he will follow-up with them after DC.
--- NOTE | 2024-08-15 14:36 | CASEMGMT ---
Social Work Pt and requested to speak with this worker. Pt requested to have referrals placed to [place] [facility], [facility] and [place] [facility] to admit there at [place]. SW agreed. - Referrals placed via [facility]. Bárbara Perez AIRPLANE FLIGHT ATTENDANT SUPERVISOR NEGATIVE RESTORER
[2024-08-15 15:18] VITALS: O2SAT 93
[2024-08-15] MEDS: Polyethylene Glycol 3350 17 GM PACKET 8.5 GM PO (16:37)
[2024-08-15] MEDS: Acetaminophen 500 MG Tablet 1000 MG PO (20:54)
[2024-08-15] MEDS: MELATONIN 10 MG TABLET PO (20:55)
[2024-08-15] MEDS: Losartan Potassium 50 MG Tablet PO (20:55)
[2024-08-16 08:43] VITALS: BP 130/71; PULSE 77; RESP 18; TEMP 36.4; O2SAT 96
[2024-08-16] MEDS: Pantoprazole Sodium 40 MG Tablet PO (08:48)
[2024-08-16] MEDS: APIXABAN 5 MG TABLET PO ×2 (08:48→21:03)
[2024-08-16] MEDS: Cyanocobalamin 500 MCG Tablet PO (08:48)
[2024-08-16] MEDS: Senna/Docusate Sodium 1 Tablet PO ×2 (08:48→21:04)
[2024-08-16] MEDS: Fluticasone 0.05% 1 SPRAY NASAL.SRY NASAL ×2 (08:48→21:01)
[2024-08-16] MEDS: Lactobacillis Acidophilus 1 CAP PO (08:49)
[2024-08-16] MEDS: Sotalol Hydrochloride 80 MG Tablet PO ×2 (08:49→21:03)
[2024-08-16] MEDS: Venlafaxine XR 75 MG Capsule PO (08:49)
[2024-08-16] MEDS: Tamsulosin HCl 0.4 MG Capsule PO ×2 (08:49→21:02)
[2024-08-16] MEDS: Ensure Clear 120 ML Liquid PO (08:52)
[2024-08-16 16:11] VITALS: PULSE 63; RESP 16; O2SAT 94
[2024-08-16] MEDS: Acetaminophen 500 MG Tablet 1000 MG PO (21:02)
[2024-08-16] MEDS: Losartan Potassium 50 MG Tablet PO (21:03)
[2024-08-16] MEDS: MELATONIN 10 MG TABLET PO (21:03)
[2024-08-17] MEDS: Sotalol Hydrochloride 80 MG Tablet PO ×2 (08:22→21:06)
[2024-08-17] MEDS: APIXABAN 5 MG TABLET PO ×2 (08:22→21:05)
[2024-08-17] MEDS: Cyanocobalamin 500 MCG Tablet PO (08:22)
[2024-08-17] MEDS: Pantoprazole Sodium 40 MG Tablet PO (08:23)
[2024-08-17] MEDS: Venlafaxine XR 75 MG Capsule PO (08:23)
[2024-08-17] MEDS: Senna/Docusate Sodium 1 Tablet PO ×2 (08:23→21:05)
[2024-08-17] MEDS: Fluticasone 0.05% 1 SPRAY NASAL.SRY NASAL ×2 (08:23→21:04)
[2024-08-17] MEDS: Tamsulosin HCl 0.4 MG Capsule PO ×2 (08:23→21:04)
[2024-08-17] MEDS: Lactobacillis Acidophilus 1 CAP PO (08:23)
[2024-08-17 09:12] VITALS: BP 124/81; PULSE 63; RESP 17; TEMP 36.5; O2SAT 93
[2024-08-17] MEDS: Ensure Clear 120 ML Liquid PO (13:10)
[2024-08-17] MEDS: Losartan Potassium 50 MG Tablet PO (21:04)
[2024-08-17] MEDS: Acetaminophen 500 MG Tablet 1000 MG PO (21:05)
[2024-08-17] MEDS: MELATONIN 10 MG TABLET PO (21:05)
[2024-08-18 05:49] LABS: Absolute Lymphocyte Count 0.85 X10^3/uL (0.83-4.51); Basophil# 0.05 X10^3/uL; Basophil% 0.9 % (0-1); Eosinophil# 0.23 X10^3/uL; Hematocrit 33.7 % (40-54); Hemoglobin 11.2 g/dL (13.0-16.5); Lymphocyte # 0.85 X10^3/ul (0.83-4.51); Lymphocyte % 14.7 % (19-41); Mean Corp Hgb Conc 33.2 g/dL (32-36); Mean Corpuscular Hgb 30.9 pg (27.0-32.0); Mean Corpuscular Volume 93.1 fL (80-94); Mean Platelet Vol. 9.7 fl (6.2-12.0); Monocyte# 0.67 X10^3/uL; Monocyte% 11.6 % (0-10); NRBC Flagged by Analyzer 0 % (0-5); Neutrophil # 3.95 X10^3/uL (2.7-7.7); Neutrophil % 68.3 % (47-70); Platelet Count 260 K/mm3 (150-450); RBC Distribution Width CV 13.9 % (11.6-14.6); Red Blood Count 3.62 M/mm3 (4.6-6.2); White Blood Count 5.8 K/mm3 (4.4-11.0)
[2024-08-18 06:10] LABS: Anion Gap 8 (5-15); BUN 16 mg/dL (4-19); BUN/Creat Ratio 21.3 RATIO (10-20); Carbon Dioxide 33.6 mmol/L (21.0-32.0); Chloride 98 mmol/L (98-108); Creatinine, Serum 0.76 mg/dL (0.70-1.20); EST Glomerular Filtration Rate 93 (>60); Estimated Creatinine Clearance 64.75 ml/min (50-250); Glucose 100 mg/dL (70-99); Potassium 3.8 mmol/L (3.3-5.1); Sodium Level 140 mmol/L (133-145)
[2024-08-18 08:29] VITALS: BP 135/63; PULSE 68; RESP 18; TEMP 36.8; O2SAT 93
[2024-08-18] MEDS: Sotalol Hydrochloride 80 MG Tablet PO ×2 (08:32→21:32)
[2024-08-18] MEDS: Venlafaxine XR 75 MG Capsule PO (08:32)
[2024-08-18] MEDS: APIXABAN 5 MG TABLET PO ×2 (08:32→21:33)
[2024-08-18] MEDS: Lactobacillis Acidophilus 1 CAP PO (08:32)
[2024-08-18] MEDS: Cyanocobalamin 500 MCG Tablet PO (08:33)
[2024-08-18] MEDS: Pantoprazole Sodium 40 MG Tablet PO (08:33)
[2024-08-18] MEDS: Senna/Docusate Sodium 1 Tablet PO ×2 (08:33→21:33)
[2024-08-18] MEDS: Tamsulosin HCl 0.4 MG Capsule PO ×2 (08:33→21:33)
[2024-08-18] MEDS: Fluticasone 0.05% 1 SPRAY NASAL.SRY NASAL ×2 (08:33→21:31)
--- NOTE | 2024-08-18 08:42 | NURSING ---
pt requesting that his eliquis be dose be decreased d/t bleeding risk, stated that nurse removed IV it took them a while to stop bleeding. Afraid he may cut himself at home and have trouble getting bleeding to stop. pt educated on the importance of taking blood thinner for AFIB and high risk of stroke w/out. pt aware, verbalized that hospitalist told him this on acute side before returning to TCU. message left with dr kent
--- NOTE | 2024-08-18 08:47 | NURSING ---
Semiconductor Manufacturing Technician Note; MDS for 08/16/2024 Complete
--- NOTE | 2024-08-18 10:20 | NURSING ---
Call from GI office, they plan to do esophageal manometry on August 29, unsure what time. If resident still on TCU they will call unit with orders the day before.
[2024-08-18 10:38] VITALS: O2SAT 94
--- NOTE | 2024-08-18 13:50 | NURSING ---
Appt made w/[facility] tomorrow @ 1226. pt wants to discuss how bad his AFIB is and the need for Eliquis. pt updated.
[2024-08-18] MEDS: Acetaminophen 500 MG Tablet 1000 MG PO ×2 (15:10→21:34)
--- NOTE | 2024-08-18 16:26 | CASEMGMT ---
Social Work Insurance issued LCD 08/20, DC 08/21 SW spoke with pt and informed him on DC 08/21. SW provided NOMNC to pt and educated to appeal rights. Pt verbalized understanding and denied appeal. Pt is agreeable to DC. SW inquired about DC plan. pt stated he will DC home. SW inquired about HHC vs OP therapy. Pt prefers [facility]. [facility]. pt received a phone call and this worker exited. - PERRY phoned to confirm DC plans home with palliative at [facility]. confirmed. [facility]. Faxed referral to [facility]. Notified Palliative. IDT updated. Plan: DC home with 08/21, [facility], [facility]. Bárbara STARKEYW
--- NOTE | 2024-08-18 20:01 | DS.PCM_ITS ---
Providers Date of Admission: 08/09/24 Primary Care Physician: Dr. Luis Medina MD Reason For Visit: ACUTE RESPIRATORY FAILURE Diagnosis Discharge Diagnosis (1) Debility: Status: Acute Code(s): R53.81 - Other malaise (2) Unresponsiveness: Status: Acute Code(s): R41.89 - Other symptoms and signs involving cognitive functions and awareness (3) Acute encephalopathy: Status: Acute Code(s): G93.40 - Encephalopathy, unspecified (4) Acute on chronic respiratory failure with hypoxia and hypercapnia: Status: Chronic Code(s): J96.21 - Acute and chronic respiratory failure with hypoxia; J96.22 - Acute and chronic respiratory failure with hypercapnia (5) Atrial fibrillation with rapid ventricular response: Status: Acute Code(s): I48.91 - Unspecified atrial fibrillation (6) Vitamin B12 deficiency: Status: Acute Code(s): E53.8 - Deficiency of other specified B group vitamins (7) Essential (primary) hypertension: Status: Acute Code(s): I10 - Essential (primary) hypertension (8) BPH (benign prostatic hypertrophy): Status: Chronic Code(s): N40.0 - Benign prostatic hyperplasia without lower urinary tract symptoms (9) Depression: Status: Acute Code(s): F32.A - Depression, unspecified (10) Restrictive lung disease due to polio: Status: Chronic Plan 79 year old male with below past medical history hospitalized for unresponsiveness 2/2 acute on chronic respiratory failure with hypoxia, hypercapnia requiring intubation, complicated by encephalopathy, hypokalemia, hypomagnesemia, admitted to TCU with debility, here for rehabilitation, strengthening, prior to discharge home with . * Debility - PT/OT. * Dysphagia - ST. * Pain - Tylenol 1000mg q6 prn pain (1-10). * Bowel - senna/colace 1 tablet bid, Magnesium citrate 300mL daily prn. * Adult immunization - Administer pneumonia vaccine, covid vaccine, flu vaccine as appropriate. * DVT prophylaxis - Eliquis. * Insomnia - Tylenol 1000mg qhs, Melatonin 10mg qhs, avoid sedating medications due to history of CO2 retention. * Atrial fibrillation - Sotalol 80mg bid, Eliquis 5mg bid. * Vitamin B12 deficiency - B12 500mcg daily. 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 * Hypertension - Sotalol 80mg bid, Losartan 50mg qhs. * BPH - Tamsulosin 0.4mg bid. * Depression - Venlafaxine XR 75mg daily, stable chronic terminal gauger use, GDR not recommended. Medications at Discharge Home Medications tamsulosin 0.4 mg capsule 0.4 mg PO BID prostate 02/03/20 venlafaxine 75 mg capsule,extended release 24 hr 75 mg PO DAILY MOOD 05/31/22 cyanocobalamin (vitamin B-12) 500 mcg tablet 500 mcg PO DAILY supplement 07/10/24 apixaban 5 mg tablet (Eliquis) 5 mg PO BID Blood thinner 60 days #120 tabs 07/24/24 sotalol 80 mg tablet 80 mg PO BID BP 60 days #120 tabs 07/24/24 losartan 50 mg tablet 50 mg PO QHS BP #0 tabs 07/28/24 omeprazole 40 mg capsule,delayed release 40 mg PO QDAY #90 caps 08/15/24 polyethylene glycol 3350 17 gram/dose oral powder (Miralax) 8.5 g PO .COMPLEX #510 grams 08/15/24 acetaminophen 500 mg tablet 1,000 mg (2 x 500 mg) PO Q6H PRN PRN Pain Score 1-10 #0 tabs 08/18/24 acetaminophen 500 mg tablet 1,000 mg (2 x 500 mg) PO QHS #0 tabs 08/18/24 fluticasone propionate 50 mcg/actuation nasal spray,suspension 1 spray NASAL BID 30 days #16 grams 08/18/24 melatonin 10 mg sublingual tablet 10 mg PO QHS #0 tabs 08/18/24 Hospital Course Operations None Procedures None Summary of Care Provided Minutes Spent on Discharge: 35 Hospital Course: 79 year old male with below past medical history hospitalized for unresponsiveness 2/2 acute on chronic respiratory failure with hypoxia, hypercapnia requiring intubation, complicated by encephalopathy, hypokalemia, hypomagnesemia, admitted to TCU with debility, here for rehabilitation, strengthening, prior to discharge home with . Discharge home with 08/21/2024, [facility] PT/ST, palliative. Physical Exam Const alert General Appearance: cooperative HEENT normocephalic Eyes PERRL and EOMs intact bilaterally Neck supple, no JVD and no carotid bruits Resp normal respiratory effort, normal air movement and clear to auscultation bilaterally Cardio regular rate and regular rhythm GI normal to inspection, nondistended, normoactive bowel sounds, non-tender and non-distended Extremity normal capillary refill General Extremity: Negative for edema Skin no rashes or lesions noted General Skin Exam: no breakdown Psych affect normal Appearance: appropriate Weight / BMI Weight Weight: 65.499 kg Body Mass Index (BMI) 24.7 ABG / Lab / Microbiology Data 08/18/24 05:26 08/18/24 05:26 Laboratory: Laboratory Results - last 24 hr 08/18/24 05:26: WBC 5.8, RBC 3.62 L, Hgb 11.2 L, Hct 33.7 L, MCV 93.1, MCH 30.9, MCHC 33.2, RDW Std Deviation 47.0 H, RDW Coeff of Larry 13.9, Plt Count 260, MPV 9.7, Immature Gran % (Auto) 0.500, Neut % (Auto) 68.3, Lymph % (Auto) 14.7 L, M phi % (Auto) 11.6 H, Eos % (Auto) 4.0, Baso % (Auto) 0.9, Absolute Neuts (auto) 4.0, Absolute Lymphs (auto) 0.85, Nucleated RBC % 0, Sodium 140, Potassium 3.8, Chloride 98, Carbon Dioxide 33.6 H, Anion Gap 8, BUN 16, Creatinine 0.76, Estim Creat Clear Calc 64.75, Est GFR (MDRD) Non-Af 93, BUN/Creatinine Ratio 21.3 H, G lucose 100 H, Calcium 9.0 Microbiology: Microbiology 08/12/24 17:47 Urine, Catheterized Urine Culture - Final Culture exhibits no growth. D/C Instructions Discharge Diet: No restrictions Discharge Activity: Return to Normal Activity, May Shower and Use Walker Weight Bearing Status: Weight bearing as tolerated Call your doctor if you observe: Fever of 101 or Higher, Inability to urinate, Inability to have a bowel movement, Shortness of breath, Dizziness, Fainting spells, Swelling in the ankles, Chest pain and Uncontrolled pain DC O2, CPAP, BIPAP Needs Home O2 Discharge instructions: Yes Type of respiratory needs?: Oxygen (5) Oxygen frequency: With Sleeping Oxygen liters per minute when sleepin DC home with Oxygen: Yes Home O2 MD Review: I have reviewed the oxygen testing, and the patient qualifies for home oxygen equipment and portability. The patient is mobile in the home and the community. Additional Instructions: Discharge home with 08/21/2024, [facility], palliative. Please Follow Up With: Esophageal Manometry When: Dr. Vázquez. Meaningful Use Info Meaningful Use Meaningful Use Diagnoses (Choose all that apply): None applicable Ischemic Stroke Statin Dosing Therapy Reference: STATIN DOSE THERAPY REFERENCE: * Patients > 75 years receive moderate or high dose statin therapy. * Patients 75 years or YOUNGER should receive HIGH intensity statin dose unless contraindicated. You will be required to document reason for non-treatment if statin daily dose does not meet guidelines. HIGH DOSE STATIN THERAPY DAILY Atorvastatin > than or = to 40 mg Rosuvastatin > than or = to 20 mg Amlodipine + Atorvastatin > than or = to 2.5/40 mg Ezetimibe + Simvastatin 10/80 mg Simvastatin 80mg Discharge Plan Admission Admit Date/Time: 08/09/24 16:56 Primary Reason for Your Visit: Debility. Attending Provider: Ezekiel Fitch Chi Primary Care Provider: Luis Medina Instructions Additional Instructions / Restrictions: Discharge home with 08/21/2024, [facility] PT/ST, palliative. Discharge Orders/Prescriptions Prescriptions: New acetaminophen 500 mg Tablet 1,000 mg PO QHS Qty: 0 0RF acetaminophen 500 mg Tablet 1,000 mg PO Q6H PRN PRN (Reason: Pain Score 1-10) Qty: 0 0RF fluticasone propionate 50 mcg/actuation [place],Suspension 1 spray NASAL BID 30 Days Qty: 16 0RF melatonin 10 mg Tablet, Sublingual 10 mg PO QHS Qty: 0 0RF Continued cyanocobalamin (vitamin B-12) 500 mcg tablet 500 mcg PO DAILY polyethylene glycol 3350 [Miralax] 17 gram/dose powder 8.5 g PO .COMPLEX Qty: 510 0RF Rx Instructions: 8.5 grams orally every other day with dinner; omeprazole 40 mg capsule,delayed release(DR/EC) 40 mg PO QDAY Qty: 90 0RF Rx Instructions: take 30 minutes before breakfast every morning tamsulosin 0.4 MG capsule 0.4 mg PO BID venlafaxine 75 mg capsule,extended release 24hr 75 mg PO DAILY sotalol 80 mg Tablet 80 mg PO BID 60 Days Qty: 120 0RF Eliquis 5 mg Tablet 5 mg PO BID 60 Days Qty: 120 0RF losartan 50 mg Tablet 50 mg PO QHS Qty: 0 0RF Discontinued ipratropium-albuterol 0.5 mg-3 mg(2.5 mg base)/3 mL Solution For Nebulization 3 ml inhalation Q4H.RT PRN (Reason: sob) Qty: 0 0RF diphenhydramine HCl [Allergy (diphenhydramine)] 25 mg capsule 25 mg PO QHS Referrals / Follow Up: Esophageal Manometry [Other] - 08/29/24 (GI office will call with time and instructions ) Luis Medina MD [Primary Care Provider] - Disposition Disposition (needs filled in before D/C Order can be placed): Home, Self Care
[2024-08-18] MEDS: Losartan Potassium 50 MG Tablet PO (21:32)
[2024-08-18] MEDS: MELATONIN 10 MG TABLET PO (21:33)
[2024-08-18 21:53] VITALS: PULSE 63; RESP 16; O2SAT 93
[2024-08-19] MEDS: Sotalol Hydrochloride 80 MG Tablet PO ×2 (10:46→21:39)
[2024-08-19] MEDS: Pantoprazole Sodium 40 MG Tablet PO (10:46)
[2024-08-19] MEDS: Tamsulosin HCl 0.4 MG Capsule PO ×2 (10:46→21:39)
[2024-08-19] MEDS: Lactobacillis Acidophilus 1 CAP PO (10:46)
[2024-08-19] MEDS: APIXABAN 5 MG TABLET PO ×2 (10:47→21:40)
[2024-08-19] MEDS: Senna/Docusate Sodium 1 Tablet PO ×2 (10:47→21:39)
[2024-08-19] MEDS: Fluticasone 0.05% 1 SPRAY NASAL.SRY NASAL ×2 (10:47→21:42)
[2024-08-19] MEDS: Venlafaxine XR 75 MG Capsule PO (10:47)
[2024-08-19] MEDS: Cyanocobalamin 500 MCG Tablet PO (10:47)
[2024-08-19 10:52] VITALS: BP 143/68; PULSE 64; RESP 18; TEMP 36.8; O2SAT 91
--- NOTE | 2024-08-19 11:39 | CASEMGMT ---
Social Work SW completed BIMS () and PHQ-2 () for MDS assessment. Pt's mood has improved. Bárbara Perez PARTS INTERPRETER MAINTENANCE MECHANIC HELPER
[2024-08-19 15:06] VITALS: BMI 23.6
[2024-08-19 17:00] VITALS: O2SAT 94
[2024-08-19] MEDS: Losartan Potassium 50 MG Tablet PO (21:40)
[2024-08-19] MEDS: MELATONIN 10 MG TABLET PO (21:41)
[2024-08-19] MEDS: Acetaminophen 500 MG Tablet 1000 MG PO (21:41)
[2024-08-19 22:15] VITALS: PULSE 61; RESP 16; O2SAT 93
[2024-08-20 09:41] VITALS: BP 124/69; PULSE 67; RESP 18; TEMP 36.8; O2SAT 95
[2024-08-20] MEDS: Lactobacillis Acidophilus 1 CAP PO (09:44)
[2024-08-20] MEDS: Sotalol Hydrochloride 80 MG Tablet PO ×2 (09:44→22:07)
[2024-08-20] MEDS: Venlafaxine XR 75 MG Capsule PO (09:44)
[2024-08-20] MEDS: Cyanocobalamin 500 MCG Tablet PO (09:44)
[2024-08-20] MEDS: Fluticasone 0.05% 1 SPRAY NASAL.SRY NASAL ×2 (09:44→22:07)
[2024-08-20] MEDS: Tamsulosin HCl 0.4 MG Capsule PO ×2 (09:44→22:08)
[2024-08-20] MEDS: APIXABAN 5 MG TABLET PO ×2 (09:44→22:08)
[2024-08-20] MEDS: Senna/Docusate Sodium 1 Tablet PO ×2 (09:44→22:09)
[2024-08-20] MEDS: Pantoprazole Sodium 40 MG Tablet PO (09:44)
[2024-08-20] MEDS: Acetaminophen 500 MG Tablet 1000 MG PO (22:09)
[2024-08-20] MEDS: Losartan Potassium 50 MG Tablet PO (22:09)
[2024-08-20] MEDS: MELATONIN 10 MG TABLET PO (22:09)
[2024-08-21 05:26] VITALS: PULSE 64
[2024-08-21 08:52] VITALS: BP 115/69; PULSE 61; RESP 16; TEMP 36.3; O2SAT 95
[2024-08-21] MEDS: Lactobacillis Acidophilus 1 CAP PO (08:55)
[2024-08-21] MEDS: Sotalol Hydrochloride 80 MG Tablet PO (08:55)
[2024-08-21] MEDS: Pantoprazole Sodium 40 MG Tablet PO (08:56)
[2024-08-21] MEDS: Fluticasone 0.05% 1 SPRAY NASAL.SRY NASAL (08:56)
[2024-08-21] MEDS: APIXABAN 5 MG TABLET PO (08:56)
[2024-08-21] MEDS: Tamsulosin HCl 0.4 MG Capsule PO (08:56)
[2024-08-21] MEDS: Venlafaxine XR 75 MG Capsule PO (08:56)
[2024-08-21] MEDS: Cyanocobalamin 500 MCG Tablet PO (08:57)
[2024-08-21] MEDS: Senna/Docusate Sodium 1 Tablet PO (08:57)
--- NOTE | 2024-08-21 10:49 | NURSING ---
dr kent notified of pt needing scripts for eliquis, omeprazole, pt was not taking prior to admit to hospital.
--- NOTE | 2024-08-21 12:25 | MDS.RN ---
Information for the MDS was obtained from review of the clinical record, interview of resident, staff, and direct observation of resident?s care.
== END 2024-08-21 11:15 | disposition home or self-care (01) | DRG 641 ==
PROVIDERS: Admitting Provider Family Medicine Geriatric Medicine; PCP Family Medicine; Visit Provider Family Medicine Geriatric Medicine
DX: R62.7 Adult failure to thrive (principal); B91 Sequelae of poliomyelitis; I11.0 Hypertensive heart disease with heart failure; I50.9 Heart failure, unspecified; F32.A Depression, unspecified; I48.91 Unspecified atrial fibrillation; J98.4 Other disorders of lung; E53.8 Deficiency of other specified B group vitamins; Z79.01 Long term (current) use of anticoagulants; N40.0 Benign prostatic hyperplasia without lower urinary tract symptoms; G47.00 Insomnia, unspecified; Z99.81 Dependence on supplemental oxygen; Z79.899 Other long term (current) drug therapy
CPT/HCPCS: 36415; 80048; 81001; 82607; 85025; 87086; 92526; 92610; 94002; 94003; 94762; 97110; 97116; 97161; 97166; 97530; 97535; 97802

== ENCOUNTER 2024-08-22 13:00 | Outpatient (RCR) | payer MEDICARE, SELFPAY ==
--- NOTE | 2024-08-22 13:42 | ST ---
[facility] Speech Pathology [address] [place] [address] Modified Barium Swallow Study MR#: [id number] Acct: [id number] Name: BERNARDA JOSEPH Rep #: [id number] : 1945 79 From: Deborah Fowler M.A., [facility]-JEWELRY FACER Modified Barium Swallow Patient Information Study Date: 08/07/24 Study Time: 13:45 Direct Billable Minutes: 107 Total Minutes procedure & reportin Diagnosis: Acute respiratory failure w/ hypoxia & hypercapnia J96.21,J96.22 Referring Physician: Familia Michel Reason for Referral: Assess swallow function, assess risk for aspiration, and determine recommendations for least restrictive diet textures and dysphagia interventions. 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 See EMR for full PMH. 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 He had a recent prolonged hospitalization due to cystitis and a syncopal episode, after which he was discharged to the TCU for continued recovery. On the morning of this admission, the patient was found to be minimally responsive, prompting a rapid response and transfer to the emergency department. He was found to have significant hypercarbia, with a PCO2 level of 131 and was subsequently intubated on 08/05/2024. He was admitted to ICU. Pt extubated on 08/06/2024. Chest x-ray did not show any significant infiltrates or consolidation to suggest pneumonia. Speech therapy evaluation was recommended prior to advancing the diet, with speech therapy orders placed for dysphagia assessment. ST recommended Regular textures / Thin liquids w/ plan for MBSS to further assess swallow function and aspiration risk given pt reports of choking on foods, drinks, or even his own spit. He reported his had to give him the Heimlich in the past 1-2 months w/ food ejected. He was unable to recall JEWELRY FACER what food he choked on. Current Diet Ordered: Regular textures / Thin liquids Dentition: Natural Teeth Mental Status: WNL (Able to follow commands for evaluation w/o difficulty, but unable to recall food from recent choking episode) Respiratory Status: Oxygenating on 4L/M nasal cannula Penetration-Aspiration Scale Penetration-Aspiration Scale: OBJECTIVE ASSESSMENT OF SWALLOW FUNCTION (QUANTITATIVE ? PER TRIAL): PENETRATION / ASPIRATION SCALE (ROBISON): 1 = does not enter airway 2 = enters airway/above vocal folds/ejected 3 = enters airway/above vocal folds/not ejected 4 = enters airway/contacts vocal folds/ejected 5 = enters airway/contacts vocal folds/not ejected 6 = enters airway/below vocal folds/ejected 7 = enters airway/below vocal folds/not ejected despite effort 8 = enters airway/below vocal folds/no effort VIDEOFLOROSCOPIC SCALE SCORE (ROBISON): Grade I = aspiration of material that has penetrated into the laryngeal vestibule, intact cough reflex Grade II = aspiration < 10 % of the bolus, intact cough reflex Grade III = aspiration of < 10 % of the bolus, reduced cough reflex or aspiration of > 10 % of the bolus, intact cough reflex Grade IV = aspiration of > 10 % of the bolus, reduced cough reflexPenetration-Aspiration Scale Score Thin Liquid via teaspoon: Result: 1= does not enter airway Thin Liquid via teaspoon Trial 2: Result: 3= enters airways/above vocal folds/not ejected Thin Liquid via sequential sips: cup: Result: 3= enters airways/above vocal folds/not ejected Thin via small single sip: cup, cued swallow hard and fast: Result: 2= enter airway/above vocal folds/ejected [place] Thick Liquid via small single sip: cup: Result: 2= enter airway/above vocal folds/ejected Pudding via teaspoon: Result: 1= does not enter airway Comment: Esophageal screen - Esophageal retention in the middle and lower esophagus. Thin Liquid via single sip: straw: Result: 3= enters airways/above vocal folds/not ejected Comment: Esophageal screen - Esophageal retention of barium pudding and liquid wash throughout the esophagus w/ retrograde flow of thin liquid barium through the UES to the pyriform sinuses. JEWELRY FACER discontinued study due to concerns for reflux aspiration and/or regurgitation. Oral Phase Labial Seal: No Labial Escape Tongue Control During Bolus Hold: Posterior escape of less than half of bolus Bolus Transport/Lingual Motion: Delayed initiation of tongue motion Oral Residue: Trace residue lining oral structures Pharyngeal Phase Initiation of Pharyngeal Swallow: Bolus head in pyriforms Soft Palate Elevation: Trace column of contrast/air between soft palate and pharyngeal wall Laryngeal Elevation: Partial superior movement thyroid cart/partial apprx aryt-epig petiole (trace retention in the UES) Anterior Hyoid Excursion: Complete anterior movement Epiglottic Movement: Complete inversion Laryngeal Vestibule Closure at Height of Swallow: Incomplete; narrow column of air/contrast in laryngeal vestibule Pharyngeal Stripping Wave: Present - complete Pharyngoesophageal Segment Opening: Parital distension and partial duration; parital obstruction of flow Tongue Base Retraction: Trace column of contrast between tongue base & post. pharyngeal wall Pharyngeal Residue: Trace residue within or on pharyngeal structures Esophageal Phase Esophageal Clearance: Esophageal retention w/ retrograde flow through pharyngoesophageal seg Diagnosis/Impression Diagnosis: Mild oropharyngeal dysphagia R13.12; Esophageal dysphagia R13.14 Impression: The oral phase is primarily marked by... -Premature posterior loss of <1/2 of thin liquids to the pyriforms prior to swallow onset. -Delayed tongue motion for A-P transport. -Did not assess mastication due to poor esophageal clearance of pudding and thin liquid trials. The pharyngeal phase is primarily marked by... -Mild delay initiating the swallow. -Decreased airway closure during the swallow due to decreased laryngeal elevation. Consistent laryngeal penetration of thin liquids that did not fully eject from the laryngeal vestibule; however, swallowing hard and fast improved timeliness of swallow and ejected penetrated barium from the laryngeal vestibule. No aspiration observed. The esophageal phase is primarily marked by... -Esophageal retention of pudding and thin liquids throughout the esophagus w/ retrograde flow of thin liquid barium through the UES to the pyriform sinuses. JEWELRY FACER discontinued study due to concerns for reflux aspiration and/or regurgitation. Recommendations Diet: Thin Liquids (Clear liquids prior to GI consult) Comment: Advance diet as recommended by GI following intervention. JEWELRY FACER to follow for ongoing assessment of diet tolerance. Compensatory Strategies: Small Sips (Swallow hard and fast), Slow Rate, Alternate bites/solids and sips/liquids, Sitting upright and Remain sitting upright for 30 minutes after PO intake Supervision: Distant Supervision Recommend Repeat Modified Barium Swallow: TBD Need for Skilled Speech Therapy Services: Yes Comment: -Train the patient in use of strategies to decrease risk for aspiration and reflux aspiration. -Ongoing assessment of diet tolerance of recommended textures. Ok to advance diet as recommended by GI following GI interventions. -Train the patient in oropharyngeal exercise program (lingual resistance, Sherry, effortful). Recommended Referrals: GI Consult Education Completed: 1. Described result of evaluation., 2. Pt understands evaluation & agrees with goals and treatment plan. and 4. Family/caregivers understand evaluation & agree w/ goals & tx plan. Status Active ST Patient: Active Contact Information [facility] Speech Therapy:: Deborah Fowler M.A. CCC-JEWELRY FACER? Speech-Language Pathologist?? [facility] [address] [place] [id number]? [email or web address]?? [phone] 08/07/24 1872 <Electronically signed by Deborah Fowler M.A. CCC-JEWELRY FACER> Date/Time Deborah Fowler M.A. CCC-JEWELRY FACER
--- NOTE | 2024-08-22 13:42 | ST ---
[facility] Speech Pathology [address] [place] [address] Modified Barium Swallow Study MR#: [id number] Acct: [id number] Name: BERNARDA JOSEPH Rep #: [id number] : 1945 79 From: Deborah Fowler M.A., [facility]-COMMERCIAL ACCOUNT MANAGER Modified Barium Swallow Patient Information Study Date: 08/07/24 Study Time: 13:45 Direct Billable Minutes: 107 Total Minutes procedure & reportin Diagnosis: Acute respiratory failure w/ hypoxia & hypercapnia J96.21,J96.22 Referring Physician: Familia Michel Reason for Referral: Assess swallow function, assess risk for aspiration, and determine recommendations for least restrictive diet textures and dysphagia interventions. 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 See EMR for full PMH. 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 He had a recent prolonged hospitalization due to cystitis and a syncopal episode, after which he was discharged to the TCU for continued recovery. On the morning of this admission, the patient was found to be minimally responsive, prompting a rapid response and transfer to the emergency department. He was found to have significant hypercarbia, with a PCO2 level of 131 and was subsequently intubated on 08/05/2024. He was admitted to ICU. Pt extubated on 08/06/2024. Chest x-ray did not show any significant infiltrates or consolidation to suggest pneumonia. Speech therapy evaluation was recommended prior to advancing the diet, with speech therapy orders placed for dysphagia assessment. ST recommended Regular textures / Thin liquids w/ plan for MBSS to further assess swallow function and aspiration risk given pt reports of choking on foods, drinks, or even his own spit. He reported his had to give him the Heimlich in the past 1-2 months w/ food ejected. He was unable to recall COMMERCIAL ACCOUNT MANAGER what food he choked on. Current Diet Ordered: Regular textures / Thin liquids Dentition: Natural Teeth Mental Status: WNL (Able to follow commands for evaluation w/o difficulty, but unable to recall food from recent choking episode) Respiratory Status: Oxygenating on 4L/M nasal cannula Penetration-Aspiration Scale Penetration-Aspiration Scale: OBJECTIVE ASSESSMENT OF SWALLOW FUNCTION (QUANTITATIVE ? PER TRIAL): PENETRATION / ASPIRATION SCALE (ROBISON): 1 = does not enter airway 2 = enters airway/above vocal folds/ejected 3 = enters airway/above vocal folds/not ejected 4 = enters airway/contacts vocal folds/ejected 5 = enters airway/contacts vocal folds/not ejected 6 = enters airway/below vocal folds/ejected 7 = enters airway/below vocal folds/not ejected despite effort 8 = enters airway/below vocal folds/no effort VIDEOFLOROSCOPIC SCALE SCORE (ROBISON): Grade I = aspiration of material that has penetrated into the laryngeal vestibule, intact cough reflex Grade II = aspiration < 10 % of the bolus, intact cough reflex Grade III = aspiration of < 10 % of the bolus, reduced cough reflex or aspiration of > 10 % of the bolus, intact cough reflex Grade IV = aspiration of > 10 % of the bolus, reduced cough reflexPenetration-Aspiration Scale Score Thin Liquid via teaspoon: Result: 1= does not enter airway Thin Liquid via teaspoon Trial 2: Result: 3= enters airways/above vocal folds/not ejected Thin Liquid via sequential sips: cup: Result: 3= enters airways/above vocal folds/not ejected Thin via small single sip: cup, cued swallow hard and fast: Result: 2= enter airway/above vocal folds/ejected [place] Thick Liquid via small single sip: cup: Result: 2= enter airway/above vocal folds/ejected Pudding via teaspoon: Result: 1= does not enter airway Comment: Esophageal screen - Esophageal retention in the middle and lower esophagus. Thin Liquid via single sip: straw: Result: 3= enters airways/above vocal folds/not ejected Comment: Esophageal screen - Esophageal retention of barium pudding and liquid wash throughout the esophagus w/ retrograde flow of thin liquid barium through the UES to the pyriform sinuses. COMMERCIAL ACCOUNT MANAGER discontinued study due to concerns for reflux aspiration and/or regurgitation. Oral Phase Labial Seal: No Labial Escape Tongue Control During Bolus Hold: Posterior escape of less than half of bolus Bolus Transport/Lingual Motion: Delayed initiation of tongue motion Oral Residue: Trace residue lining oral structures Pharyngeal Phase Initiation of Pharyngeal Swallow: Bolus head in pyriforms Soft Palate Elevation: Trace column of contrast/air between soft palate and pharyngeal wall Laryngeal Elevation: Partial superior movement thyroid cart/partial apprx aryt-epig petiole (trace retention in the UES) Anterior Hyoid Excursion: Complete anterior movement Epiglottic Movement: Complete inversion Laryngeal Vestibule Closure at Height of Swallow: Incomplete; narrow column of air/contrast in laryngeal vestibule Pharyngeal Stripping Wave: Present - complete Pharyngoesophageal Segment Opening: Parital distension and partial duration; parital obstruction of flow Tongue Base Retraction: Trace column of contrast between tongue base & post. pharyngeal wall Pharyngeal Residue: Trace residue within or on pharyngeal structures Esophageal Phase Esophageal Clearance: Esophageal retention w/ retrograde flow through pharyngoesophageal seg Diagnosis/Impression Diagnosis: Mild oropharyngeal dysphagia R13.12; Esophageal dysphagia R13.14 Impression: The oral phase is primarily marked by... -Premature posterior loss of <1/2 of thin liquids to the pyriforms prior to swallow onset. -Delayed tongue motion for A-P transport. -Did not assess mastication due to poor esophageal clearance of pudding and thin liquid trials. The pharyngeal phase is primarily marked by... -Mild delay initiating the swallow. -Decreased airway closure during the swallow due to decreased laryngeal elevation. Consistent laryngeal penetration of thin liquids that did not fully eject from the laryngeal vestibule; however, swallowing hard and fast improved timeliness of swallow and ejected penetrated barium from the laryngeal vestibule. No aspiration observed. The esophageal phase is primarily marked by... -Esophageal retention of pudding and thin liquids throughout the esophagus w/ retrograde flow of thin liquid barium through the UES to the pyriform sinuses. COMMERCIAL ACCOUNT MANAGER discontinued study due to concerns for reflux aspiration and/or regurgitation. Recommendations Diet: Thin Liquids (Clear liquids prior to GI consult) Comment: Advance diet as recommended by GI following intervention. COMMERCIAL ACCOUNT MANAGER to follow for ongoing assessment of diet tolerance. Compensatory Strategies: Small Sips (Swallow hard and fast), Slow Rate, Alternate bites/solids and sips/liquids, Sitting upright and Remain sitting upright for 30 minutes after PO intake Supervision: Distant Supervision Recommend Repeat Modified Barium Swallow: TBD Need for Skilled Speech Therapy Services: Yes Comment: -Train the patient in use of strategies to decrease risk for aspiration and reflux aspiration. -Ongoing assessment of diet tolerance of recommended textures. Ok to advance diet as recommended by GI following GI interventions. -Train the patient in oropharyngeal exercise program (lingual resistance, Sherry, effortful). Recommended Referrals: GI Consult Education Completed: 1. Described result of evaluation., 2. Pt understands evaluation & agrees with goals and treatment plan. and 4. Family/caregivers understand evaluation & agree w/ goals & tx plan. Status Active ST Patient: Active Contact Information [facility] Speech Therapy:: Deborah Fowler M.A. CCC-COMMERCIAL ACCOUNT MANAGER? Speech-Language Pathologist?? [facility] [address] [place] [id number]? [email or web address]?? [phone] 08/07/24 2307 <Electronically signed by Deborah Fowler M.A. CCC-COMMERCIAL ACCOUNT MANAGER> Date/Time Deborah Fowler M.A. CCC-COMMERCIAL ACCOUNT MANAGER
--- NOTE | 2024-08-29 10:55 | ST ---
Modified Barium Swallow Study MR#: [id number] Acct: [id number] Name: BERNARDA JOSEPH Rep #: [id number] : 1945 79 From: Deborah Fowler M.A., [facility]-CLIENT LIAISON Modified Barium Swallow Patient Information Study Date: 08/07/24 Study Time: 13:45 Direct Billable Minutes: 107 Total Minutes procedure & reportin Diagnosis: Acute respiratory failure w/ hypoxia & hypercapnia J96.21,J96.22 Referring Physician: Familia Michel Reason for Referral: Assess swallow function, assess risk for aspiration, and determine recommendations for least restrictive diet textures and dysphagia interventions. 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 See EMR for full PMH. 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 He had a recent prolonged hospitalization due to cystitis and a syncopal episode, after which he was discharged to the TCU for continued recovery. On the morning of this admission, the patient was found to be minimally responsive, prompting a rapid response and transfer to the emergency department. He was found to have significant hypercarbia, with a PCO2 level of 131 and was subsequently intubated on 08/05/2024. He was admitted to ICU. Pt extubated on 08/06/2024. Chest x-ray did not show any significant infiltrates or consolidation to suggest pneumonia. Speech therapy evaluation was recommended prior to advancing the diet, with speech therapy orders placed for dysphagia assessment. ST recommended Regular textures / Thin liquids w/ plan for MBSS to further assess swallow function and aspiration risk given pt reports of choking on foods, drinks, or even his own spit. He reported his had to give him the Heimlich in the past 1-2 months w/ food ejected. He was unable to recall CLIENT LIAISON what food he choked on. Current Diet Ordered: Regular textures / Thin liquids Dentition: Natural Teeth Mental Status: WNL (Able to follow commands for evaluation w/o difficulty, but unable to recall food from recent choking episode) Respiratory Status: Oxygenating on 4L/M nasal cannula Penetration-Aspiration Scale Penetration-Aspiration Scale: OBJECTIVE ASSESSMENT OF SWALLOW FUNCTION (QUANTITATIVE ? PER TRIAL): PENETRATION / ASPIRATION SCALE (ROBISON): 1 = does not enter airway 2 = enters airway/above vocal folds/ejected 3 = enters airway/above vocal folds/not ejected 4 = enters airway/contacts vocal folds/ejected 5 = enters airway/contacts vocal folds/not ejected 6 = enters airway/below vocal folds/ejected 7 = enters airway/below vocal folds/not ejected despite effort 8 = enters airway/below vocal folds/no effort VIDEOFLOROSCOPIC SCALE SCORE (ROBISON): Grade I = aspiration of material that has penetrated into the laryngeal vestibule, intact cough reflex Grade II = aspiration < 10 % of the bolus, intact cough reflex Grade III = aspiration of < 10 % of the bolus, reduced cough reflex or aspiration of > 10 % of the bolus, intact cough reflex Grade IV = aspiration of > 10 % of the bolus, reduced cough reflexPenetration-Aspiration Scale Score Thin Liquid via teaspoon: Result: 1= does not enter airway Thin Liquid via teaspoon Trial 2: Result: 3= enters airways/above vocal folds/not ejected Thin Liquid via sequential sips: cup: Result: 3= enters airways/above vocal folds/not ejected Thin via small single sip: cup, cued swallow hard and fast: Result: 2= enter airway/above vocal folds/ejected [place] Thick Liquid via small single sip: cup: Result: 2= enter airway/above vocal folds/ejected Pudding via teaspoon: Result: 1= does not enter airway Comment: Esophageal screen - Esophageal retention in the middle and lower esophagus. Thin Liquid via single sip: straw: Result: 3= enters airways/above vocal folds/not ejected Comment: Esophageal screen - Esophageal retention of barium pudding and liquid wash throughout the esophagus w/ retrograde flow of thin liquid barium through the UES to the pyriform sinuses. CLIENT LIAISON discontinued study due to concerns for reflux aspiration and/or regurgitation. Oral Phase Labial Seal: No Labial Escape Tongue Control During Bolus Hold: Posterior escape of less than half of bolus Bolus Transport/Lingual Motion: Delayed initiation of tongue motion Oral Residue: Trace residue lining oral structures Pharyngeal Phase Initiation of Pharyngeal Swallow: Bolus head in pyriforms Soft Palate Elevation: Trace column of contrast/air between soft palate and pharyngeal wall Laryngeal Elevation: Partial superior movement thyroid cart/partial apprx aryt-epig petiole (trace retention in the UES) Anterior Hyoid Excursion: Complete anterior movement Epiglottic Movement: Complete inversion Laryngeal Vestibule Closure at Height of Swallow: Incomplete; narrow column of air/contrast in laryngeal vestibule Pharyngeal Stripping Wave: Present - complete Pharyngoesophageal Segment Opening: Parital distension and partial duration; parital obstruction of flow Tongue Base Retraction: Trace column of contrast between tongue base & post. pharyngeal wall Pharyngeal Residue: Trace residue within or on pharyngeal structures Esophageal Phase Esophageal Clearance: Esophageal retention w/ retrograde flow through pharyngoesophageal seg Diagnosis/Impression Diagnosis: Mild oropharyngeal dysphagia R13.12; Esophageal dysphagia R13.14 Impression: The oral phase is primarily marked by... -Premature posterior loss of <1/2 of thin liquids to the pyriforms prior to swallow onset. -Delayed tongue motion for A-P transport. -Did not assess mastication due to poor esophageal clearance of pudding and thin liquid trials. The pharyngeal phase is primarily marked by... -Mild delay initiating the swallow. -Decreased airway closure during the swallow due to decreased laryngeal elevation. Consistent laryngeal penetration of thin liquids that did not fully eject from the laryngeal vestibule; however, swallowing hard and fast improved timeliness of swallow and ejected penetrated barium from the laryngeal vestibule. No aspiration observed. The esophageal phase is primarily marked by... -Esophageal retention of pudding and thin liquids throughout the esophagus w/ retrograde flow of thin liquid barium through the UES to the pyriform sinuses. CLIENT LIAISON discontinued study due to concerns for reflux aspiration and/or regurgitation. Recommendations Diet: Thin Liquids (Clear liquids prior to GI consult) Comment: Advance diet as recommended by GI following intervention. CLIENT LIAISON to follow for ongoing assessment of diet tolerance. Compensatory Strategies: Small Sips (Swallow hard and fast), Slow Rate, Alternate bites/solids and sips/liquids, Sitting upright and Remain sitting upright for 30 minutes after PO intake Supervision: Distant Supervision Recommend Repeat Modified Barium Swallow: TBD Need for Skilled Speech Therapy Services: Yes Comment: -Train the patient in use of strategies to decrease risk for aspiration and reflux aspiration. -Ongoing assessment of diet tolerance of recommended textures. Ok to advance diet as recommended by GI following GI interventions. -Train the patient in oropharyngeal exercise program (lingual resistance, Sherry, effortful). Recommended Referrals: GI Consult Education Completed: 1. Described result of evaluation., 2. Pt understands evaluation & agrees with goals and treatment plan. and 4. Family/caregivers understand evaluation & agree w/ goals & tx plan. Status Active ST Patient: Active Contact Information [facility] Speech Therapy:: Deborah Fowler M.A. CCC-CLIENT LIAISON? Speech-Language Pathologist?? [facility] [address] [place] [address]? [email or web address]?? [phone] 08/07/24 9761 <Electronically signed by Deborah Fowler M.A., CCC-CLIENT LIAISON>
--- NOTE | 2024-08-29 10:55 | ST ---
Modified Barium Swallow Study MR#: [id number] Acct: [id number] Name: BERNARDA JOSEPH Rep #: [id number] : 1945 79 From: Deborah Fowler M.A., [facility]-[employer] Modified Barium Swallow Patient Information Study Date: 08/07/24 Study Time: 13:45 Direct Billable Minutes: 107 Total Minutes procedure & reportin Diagnosis: Acute respiratory failure w/ hypoxia & hypercapnia J96.21,J96.22 Referring Physician: Familia Michel Reason for Referral: Assess swallow function, assess risk for aspiration, and determine recommendations for least restrictive diet textures and dysphagia interventions. 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 See EMR for full PMH. 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 He had a recent prolonged hospitalization due to cystitis and a syncopal episode, after which he was discharged to the TCU for continued recovery. On the morning of this admission, the patient was found to be minimally responsive, prompting a rapid response and transfer to the emergency department. He was found to have significant hypercarbia, with a PCO2 level of 131 and was subsequently intubated on 08/05/2024. He was admitted to ICU. Pt extubated on 08/06/2024. Chest x-ray did not show any significant infiltrates or consolidation to suggest pneumonia. Speech therapy evaluation was recommended prior to advancing the diet, with speech therapy orders placed for dysphagia assessment. ST recommended Regular textures / Thin liquids w/ plan for MBSS to further assess swallow function and aspiration risk given pt reports of choking on foods, drinks, or even his own spit. He reported his had to give him the Heimlich in the past 1-2 months w/ food ejected. He was unable to recall [employer] what food he choked on. Current Diet Ordered: Regular textures / Thin liquids Dentition: Natural Teeth Mental Status: WNL (Able to follow commands for evaluation w/o difficulty, but unable to recall food from recent choking episode) Respiratory Status: Oxygenating on 4L/M nasal cannula Penetration-Aspiration Scale Penetration-Aspiration Scale: OBJECTIVE ASSESSMENT OF SWALLOW FUNCTION (QUANTITATIVE ? PER TRIAL): PENETRATION / ASPIRATION SCALE (ROBISON): 1 = does not enter airway 2 = enters airway/above vocal folds/ejected 3 = enters airway/above vocal folds/not ejected 4 = enters airway/contacts vocal folds/ejected 5 = enters airway/contacts vocal folds/not ejected 6 = enters airway/below vocal folds/ejected 7 = enters airway/below vocal folds/not ejected despite effort 8 = enters airway/below vocal folds/no effort VIDEOFLOROSCOPIC SCALE SCORE (ROBISON): Grade I = aspiration of material that has penetrated into the laryngeal vestibule, intact cough reflex Grade II = aspiration < 10 % of the bolus, intact cough reflex Grade III = aspiration of < 10 % of the bolus, reduced cough reflex or aspiration of > 10 % of the bolus, intact cough reflex Grade IV = aspiration of > 10 % of the bolus, reduced cough reflexPenetration-Aspiration Scale Score Thin Liquid via teaspoon: Result: 1= does not enter airway Thin Liquid via teaspoon Trial 2: Result: 3= enters airways/above vocal folds/not ejected Thin Liquid via sequential sips: cup: Result: 3= enters airways/above vocal folds/not ejected Thin via small single sip: cup, cued swallow hard and fast: Result: 2= enter airway/above vocal folds/ejected [place] Thick Liquid via small single sip: cup: Result: 2= enter airway/above vocal folds/ejected Pudding via teaspoon: Result: 1= does not enter airway Comment: Esophageal screen - Esophageal retention in the middle and lower esophagus. Thin Liquid via single sip: straw: Result: 3= enters airways/above vocal folds/not ejected Comment: Esophageal screen - Esophageal retention of barium pudding and liquid wash throughout the esophagus w/ retrograde flow of thin liquid barium through the UES to the pyriform sinuses. [employer] discontinued study due to concerns for reflux aspiration and/or regurgitation. Oral Phase Labial Seal: No Labial Escape Tongue Control During Bolus Hold: Posterior escape of less than half of bolus Bolus Transport/Lingual Motion: Delayed initiation of tongue motion Oral Residue: Trace residue lining oral structures Pharyngeal Phase Initiation of Pharyngeal Swallow: Bolus head in pyriforms Soft Palate Elevation: Trace column of contrast/air between soft palate and pharyngeal wall Laryngeal Elevation: Partial superior movement thyroid cart/partial apprx aryt-epig petiole (trace retention in the UES) Anterior Hyoid Excursion: Complete anterior movement Epiglottic Movement: Complete inversion Laryngeal Vestibule Closure at Height of Swallow: Incomplete; narrow column of air/contrast in laryngeal vestibule Pharyngeal Stripping Wave: Present - complete Pharyngoesophageal Segment Opening: Parital distension and partial duration; parital obstruction of flow Tongue Base Retraction: Trace column of contrast between tongue base & post. pharyngeal wall Pharyngeal Residue: Trace residue within or on pharyngeal structures Esophageal Phase Esophageal Clearance: Esophageal retention w/ retrograde flow through pharyngoesophageal seg Diagnosis/Impression Diagnosis: Mild oropharyngeal dysphagia R13.12; Esophageal dysphagia R13.14 Impression: The oral phase is primarily marked by... -Premature posterior loss of <1/2 of thin liquids to the pyriforms prior to swallow onset. -Delayed tongue motion for A-P transport. -Did not assess mastication due to poor esophageal clearance of pudding and thin liquid trials. The pharyngeal phase is primarily marked by... -Mild delay initiating the swallow. -Decreased airway closure during the swallow due to decreased laryngeal elevation. Consistent laryngeal penetration of thin liquids that did not fully eject from the laryngeal vestibule; however, swallowing hard and fast improved timeliness of swallow and ejected penetrated barium from the laryngeal vestibule. No aspiration observed. The esophageal phase is primarily marked by... -Esophageal retention of pudding and thin liquids throughout the esophagus w/ retrograde flow of thin liquid barium through the UES to the pyriform sinuses. [employer] discontinued study due to concerns for reflux aspiration and/or regurgitation. Recommendations Diet: Thin Liquids (Clear liquids prior to GI consult) Comment: Advance diet as recommended by GI following intervention. [employer] to follow for ongoing assessment of diet tolerance. Compensatory Strategies: Small Sips (Swallow hard and fast), Slow Rate, Alternate bites/solids and sips/liquids, Sitting upright and Remain sitting upright for 30 minutes after PO intake Supervision: Distant Supervision Recommend Repeat Modified Barium Swallow: TBD Need for Skilled Speech Therapy Services: Yes Comment: -Train the patient in use of strategies to decrease risk for aspiration and reflux aspiration. -Ongoing assessment of diet tolerance of recommended textures. Ok to advance diet as recommended by GI following GI interventions. -Train the patient in oropharyngeal exercise program (lingual resistance, Sherry, effortful). Recommended Referrals: GI Consult Education Completed: 1. Described result of evaluation., 2. Pt understands evaluation & agrees with goals and treatment plan. and 4. Family/caregivers understand evaluation & agree w/ goals & tx plan. Status Active ST Patient: Active Contact Information [facility] Speech Therapy:: Deborah Fowler M.A. CCC-[employer]? Speech-Language Pathologist?? [facility] [address] [place] [address]? [email or web address]?? [phone] 08/07/24 1981 <Electronically signed by Deborah Fowler M.A., CCC-[employer]>
--- NOTE | 2024-09-02 16:19 | HP.SP.EVAL ---
Visit History Visit Info Date of Eval: 08/22/24 Today is Visit #: 1 Turn Out: CHRIST History Attending Doctor: Referring Doctor: Reason for Referral: POLIO/RESPIRATORY FAILURE/DEBILITY. RX HERE Medical Diagnosis: POLIO/RESPIRATORY FAILURE/DEBILITY. Previous speech therapy: Yes Results: Patient previously was evaluated by this therapist in 2023 with MBSS recommended but patient requested to wait at that time. He received speech therapy while in the hospital as well as at [facility]. Other Relevant Medical History/Diagnoses/Surgery: Patient has post polio syndrome with an recent history of swallowing deficits in the last few years. 79 year old male hospitalized for unresponsiveness 2/2 acute on chronic respiratory failure with hypoxia, hypercapnia requiring intubation, complicated by encephalopathy, hypokalemia, hypomagnesemia. He spent a lengthy time in acute care and then admitted to TCU with debility. He was discharged on 08/21/24 to home with this on a soft and bite sized diet with thin liquids. 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 He had a recent prolonged hospitalization due to cystitis and a syncopal episode, after which he was discharged to the TCU for continued recovery. On the morning of this admission, the patient was found to be minimally responsive, prompting a rapid response and transfer to the emergency department. He was found to have significant hypercarbia, with a PCO2 level of 131 and was subsequently intubated on 08/05/2024. He was admitted to ICU. Pt extubated on 08/06/2024. Chest x-ray did not show any significant infiltrates or consolidation to suggest pneumonia. Speech therapy evaluation was recommended prior to advancing the diet, with speech therapy orders placed for dysphagia assessment. ST recommended Regular textures / Thin liquids w/ plan for MBSS to further assess swallow function and aspiration risk given pt reports of choking on foods, drinks, or even his own spit. He reported his had to give him the Heimlich in the past 1-2 months w/ food ejected. He was unable to recall TRAVEL ACCOMMODATION INSPECTOR what food he choked on. Smoking Status: Never smoker Diagnosis Diagnosis: Mild oropharyngeal dysphagia R13.12; Esophageal dysphagia R13.14 Pain Is pain an issue with your current prescribed condition?: No Personal Preferred language: Georgian Patient Allergies Allergies Allergies: Allergies metronidazole (From Flagyl) Adverse Reaction (Verified 09/02/24 14:30) Nausea/Vom/Diarrhea VOMITING Objective Dysphagia Swallowing Impairment Contributing Factors to Swallowing Impairment: Impaired Oral-Pharyngeal Transport Impact Impact on Safety & Functioning: Risk for Aspiration Recommendations Swallowing Treatment: Yes Diet Texture Recommendations Solids: Regular (Level 7) Liquids: Thin (Level 0) Safety Saftey Precautions/Swallowing Recommendations (Check all that Apply): Small Sips & Bites when Eating Results Swallowing Within Normal Limits: No Swallowing Diagnosis: Oropharyngeal Phase Dysphagia (R13.12) Severity: Mild Objective Oral Motor Oral Status Dentition: WNL Labial Impairment: WNL Closure: WNL Pucker: WNL Retraction: WNL Alternating Pucker/Retraction: WNL Modified Barium Results Hx If Applicable Enter into a NOTE MBS Results (from prior exam): 08/29/24 10:55 Speech Therapy by Rodolfo Simon Modified Barium Swallow Study MR#: [id number] Acct: [id number] Name: BERNARDA JOSEPH Rep #: [id number] : 1945 79 From: Deborah Fowler M.A., [facility]-TRAVEL ACCOMMODATION INSPECTOR Modified Barium Swallow Patient Information Study Date: 08/07/24 Study Time: 13:45 Direct Billable Minutes: 107 Total Minutes procedure & reportin Diagnosis: Acute respiratory failure w/ hypoxia & hypercapnia J96.21,J96.22 Referring Physician: Familia Michel Reason for Referral: Assess swallow function, assess risk for aspiration, and determine recommendations for least restrictive diet textures and dysphagia interventions. 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 See EMR for full PMH. 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 He had a recent prolonged hospitalization due to cystitis and a syncopal episode, after which he was discharged to the TCU for continued recovery. On the morning of this admission, the patient was found to be minimally responsive, prompting a rapid response and transfer to the emergency department. He was found to have significant hypercarbia, with a PCO2 level of 131 and was subsequently intubated on 08/05/2024. He was admitted to ICU. Pt extubated on 08/06/2024. Chest x-ray did not show any significant infiltrates or consolidation to suggest pneumonia. Speech therapy evaluation was recommended prior to advancing the diet, with speech therapy orders placed for dysphagia assessment. ST recommended Regular textures / Thin liquids w/ plan for MBSS to further assess swallow function and aspiration risk given pt reports of choking on foods, drinks, or even his own spit. He reported his had to give him the Heimlich in the past 1-2 months w/ food ejected. He was unable to recall TRAVEL ACCOMMODATION INSPECTOR what food he choked on. Current Diet Ordered: Regular textures / Thin liquids Dentition: Natural Teeth Mental Status: WNL (Able to follow commands for evaluation w/o difficulty, but unable to recall food from recent choking episode) Respiratory Status: Oxygenating on 4L/M nasal cannula Penetration-Aspiration Scale Penetration-Aspiration Scale: OBJECTIVE ASSESSMENT OF SWALLOW FUNCTION (QUANTITATIVE ? PER TRIAL): PENETRATION / ASPIRATION SCALE (ROBISON): 1 = does not enter airway 2 = enters airway/above vocal folds/ejected 3 = enters airway/above vocal folds/not ejected 4 = enters airway/contacts vocal folds/ejected 5 = enters airway/contacts vocal folds/not ejected 6 = enters airway/below vocal folds/ejected 7 = enters airway/below vocal folds/not ejected despite effort 8 = enters airway/below vocal folds/no effort VIDEOFLOROSCOPIC SCALE SCORE (ROBISON): Grade I = aspiration of material that has penetrated into the laryngeal vestibule, intact cough reflex Grade II = aspiration < 10 % of the bolus, intact cough reflex Grade III = aspiration of < 10 % of the bolus, reduced cough reflex or aspiration of > 10 % of the bolus, intact cough reflex Grade IV = aspiration of > 10 % of the bolus, reduced cough reflexPenetration-Aspiration Scale Score Thin Liquid via teaspoon: Result: 1= does not enter airway Thin Liquid via teaspoon Trial 2: Result: 3= enters airways/above vocal folds/not ejected Thin Liquid via sequential sips: cup: Result: 3= enters airways/above vocal folds/not ejected Thin via small single sip: cup, cued swallow hard and fast: Result: 2= enter airway/above vocal folds/ejected [place] Thick Liquid via small single sip: cup: Result: 2= enter airway/above vocal folds/ejected Pudding via teaspoon: Result: 1= does not enter airway Comment: Esophageal screen - Esophageal retention in the middle and lower esophagus. Thin Liquid via single sip: straw: Result: 3= enters airways/above vocal folds/not ejected Comment: Esophageal screen - Esophageal retention of barium pudding and liquid wash throughout the esophagus w/ retrograde flow of thin liquid barium through the UES to the pyriform sinuses. TRAVEL ACCOMMODATION INSPECTOR discontinued study due to concerns for reflux aspiration and/or regurgitation. Oral Phase Labial Seal: No Labial Escape Tongue Control During Bolus Hold: Posterior escape of less than half of bolus Bolus Transport/Lingual Motion: Delayed initiation of tongue motion Oral Residue: Trace residue lining oral structures Pharyngeal Phase Initiation of Pharyngeal Swallow: Bolus head in pyriforms Soft Palate Elevation: Trace column of contrast/air between soft palate and pharyngeal wall Laryngeal Elevation: Partial superior movement thyroid cart/partial apprx aryt-epig petiole (trace retention in the UES) Anterior Hyoid Excursion: Complete anterior movement Epiglottic Movement: Complete inversion Laryngeal Vestibule Closure at Height of Swallow: Incomplete; narrow column of air/contrast in laryngeal vestibule Pharyngeal Stripping Wave: Present - complete Pharyngoesophageal Segment Opening: Parital distension and partial duration; parital obstruction of flow Tongue Base Retraction: Trace column of contrast between tongue base & post. pharyngeal wall Pharyngeal Residue: Trace residue within or on pharyngeal structures Esophageal Phase Esophageal Clearance: Esophageal retention w/ retrograde flow through pharyngoesophageal seg Diagnosis/Impression Diagnosis: Mild oropharyngeal dysphagia R13.12; Esophageal dysphagia R13.14 Impression: The oral phase is primarily marked by... -Premature posterior loss of <1/2 of thin liquids to the pyriforms prior to swallow onset. -Delayed tongue motion for A-P transport. -Did not assess mastication due to poor esophageal clearance of pudding and thin liquid trials. The pharyngeal phase is primarily marked by... -Mild delay initiating the swallow. -Decreased airway closure during the swallow due to decreased laryngeal elevation. Consistent laryngeal penetration of thin liquids that did not fully eject from the laryngeal vestibule; however, swallowing hard and fast improved timeliness of swallow and ejected penetrated barium from the laryngeal vestibule. No aspiration observed. The esophageal phase is primarily marked by... -Esophageal retention of pudding and thin liquids throughout the esophagus w/ retrograde flow of thin liquid barium through the UES to the pyriform sinuses. TRAVEL ACCOMMODATION INSPECTOR discontinued study due to concerns for reflux aspiration and/or regurgitation. Recommendations Diet: Thin Liquids (Clear liquids prior to GI consult) Comment: Advance diet as recommended by GI following intervention. TRAVEL ACCOMMODATION INSPECTOR to follow for ongoing assessment of diet tolerance. Compensatory Strategies: Small Sips (Swallow hard and fast), Slow Rate, Alternate bites/solids and sips/liquids, Sitting upright and Remain sitting upright for 30 minutes after PO intake Supervision: Distant Supervision Recommend Repeat Modified Barium Swallow: TBD Need for Skilled Speech Therapy Services: Yes Comment: -Train the patient in use of strategies to decrease risk for aspiration and reflux aspiration. -Ongoing assessment of diet tolerance of recommended textures. Ok to advance diet as recommended by GI following GI interventions. -Train the patient in oropharyngeal exercise program (lingual resistance, Sherry, effortful). Recommended Referrals: GI Consult Education Completed: 1. Described result of evaluation., 2. Pt understands evaluation & agrees with goals and treatment plan. and 4. Family/caregivers understand evaluation & agree w/ goals & tx plan. Status Active ST Patient: Active Contact Information [facility] Speech Therapy:: Deborah Fowler M.A. CCC-TRAVEL ACCOMMODATION INSPECTOR? Speech-Language Pathologist?? [facility] [address] [place] [address]? [email or web address]?? [phone] 08/07/24 1639 <Electronically signed by Deborah Fowler M.A., CCC-TRAVEL ACCOMMODATION INSPECTOR> Initialized on 08/29/24 10:55 - END OF NOTE Reference: Neuro-QoL instrument Radiation Oncology Patient Plan Plan Plan: Speech therapy is recommended to treat Mild oropharyngeal dysphagia R13.12. Patient has requested to hold therapy until after a physician visit and then he will contact [employer] to schedule at his discretion. Recommendations Treatment Warranted: Yes Treatment Warranted: Dysphagia Progress Prognosis: Good Frequency Additional (Frequency): 1-2 visits at once per week then reduce to one time per month Duration: 3 Months Visits in this POC: 4 Patient/Family Goal Patient/Family Goal: Patient wishes to be able to eat regularly. Goals that are Established Determination:: Goals will be added/modified as deemed necessary and appropriate. Therapy will be discontinued when results of re-evaluation indicate therapy is no longer needed or lack of progress has been documented. Goal #1-5 Goal #1: Patient will tolerate the least restrictive means of nutrition to facilitate adequate hydration/nutrition with optimum safety and efficiency of swallowing function during P.O. intake without overt signs and symptoms of aspiration. Goal #2: Patient will demonstrate and utilize recommended oropharyngeal strengthening exercises to facilitate improved oropharyngeal strength and coordination with minimal cueing and prompting provide by the clinician, across 3 to 3 sessions. Education Patient has Indicated that the Following Identified Educational Needs: None The Patient has indicated that they have no educational or learning abilities that may effect their care.: Yes Patient Instruction Patient Education: Diagnosis, Treatment Plan, Diet Level and Home Exercise Program Person Taught: Patient Response to teaching: Verbalize Understanding and Has Prior Knowledge
--- NOTE | 2024-09-02 16:19 | HP.SP.EVAL ---
Visit History Visit Info Date of Eval: 08/22/24 Today is Visit #: 1 Metrology Specialist: CHRIST History Attending Doctor: Referring Doctor: Reason for Referral: POLIO/RESPIRATORY FAILURE/DEBILITY. RX HERE Medical Diagnosis: POLIO/RESPIRATORY FAILURE/DEBILITY. Previous speech therapy: Yes Results: Patient previously was evaluated by this therapist in 2023 with MBSS recommended but patient requested to wait at that time. He received speech therapy while in the hospital as well as at [facility]. Other Relevant Medical History/Diagnoses/Surgery: Patient has post polio syndrome with an recent history of swallowing deficits in the last few years. 79 year old male hospitalized for unresponsiveness 2/2 acute on chronic respiratory failure with hypoxia, hypercapnia requiring intubation, complicated by encephalopathy, hypokalemia, hypomagnesemia. He spent a lengthy time in acute care and then admitted to TCU with debility. He was discharged on 08/21/24 to home with this on a soft and bite sized diet with thin liquids. 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 He had a recent prolonged hospitalization due to cystitis and a syncopal episode, after which he was discharged to the TCU for continued recovery. On the morning of this admission, the patient was found to be minimally responsive, prompting a rapid response and transfer to the emergency department. He was found to have significant hypercarbia, with a PCO2 level of 131 and was subsequently intubated on 08/05/2024. He was admitted to ICU. Pt extubated on 08/06/2024. Chest x-ray did not show any significant infiltrates or consolidation to suggest pneumonia. Speech therapy evaluation was recommended prior to advancing the diet, with speech therapy orders placed for dysphagia assessment. ST recommended Regular textures / Thin liquids w/ plan for MBSS to further assess swallow function and aspiration risk given pt reports of choking on foods, drinks, or even his own spit. He reported his had to give him the Heimlich in the past 1-2 months w/ food ejected. He was unable to recall DIESEL TRUCK TECHNICIAN what food he choked on. Smoking Status: Never smoker Diagnosis Diagnosis: Mild oropharyngeal dysphagia R13.12; Esophageal dysphagia R13.14 Pain Is pain an issue with your current prescribed condition?: No Personal Preferred language: Macedonian Patient Allergies Allergies Allergies: Allergies metronidazole (From Flagyl) Adverse Reaction (Verified 09/02/24 14:30) Nausea/Vom/Diarrhea VOMITING Objective Dysphagia Swallowing Impairment Contributing Factors to Swallowing Impairment: Impaired Oral-Pharyngeal Transport Impact Impact on Safety & Functioning: Risk for Aspiration Recommendations Swallowing Treatment: Yes Diet Texture Recommendations Solids: Regular (Level 7) Liquids: Thin (Level 0) Safety Saftey Precautions/Swallowing Recommendations (Check all that Apply): Small Sips & Bites when Eating Results Swallowing Within Normal Limits: No Swallowing Diagnosis: Oropharyngeal Phase Dysphagia (R13.12) Severity: Mild Objective Oral Motor Oral Status Dentition: WNL Labial Impairment: WNL Closure: WNL Pucker: WNL Retraction: WNL Alternating Pucker/Retraction: WNL Modified Barium Results Hx If Applicable Enter into a NOTE MBS Results (from prior exam): 08/29/24 10:55 Speech Therapy by Rodolfo Simon Modified Barium Swallow Study MR#: [id number] Acct: [id number] Name: BERNARDA JOSEPH Rep #: [id number] : 1945 79 From: Deborah Fowler M.A., [facility]-DIESEL TRUCK TECHNICIAN Modified Barium Swallow Patient Information Study Date: 08/07/24 Study Time: 13:45 Direct Billable Minutes: 107 Total Minutes procedure & reportin Diagnosis: Acute respiratory failure w/ hypoxia & hypercapnia J96.21,J96.22 Referring Physician: Familia Michel Reason for Referral: Assess swallow function, assess risk for aspiration, and determine recommendations for least restrictive diet textures and dysphagia interventions. 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 See EMR for full PMH. 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 He had a recent prolonged hospitalization due to cystitis and a syncopal episode, after which he was discharged to the TCU for continued recovery. On the morning of this admission, the patient was found to be minimally responsive, prompting a rapid response and transfer to the emergency department. He was found to have significant hypercarbia, with a PCO2 level of 131 and was subsequently intubated on 08/05/2024. He was admitted to ICU. Pt extubated on 08/06/2024. Chest x-ray did not show any significant infiltrates or consolidation to suggest pneumonia. Speech therapy evaluation was recommended prior to advancing the diet, with speech therapy orders placed for dysphagia assessment. ST recommended Regular textures / Thin liquids w/ plan for MBSS to further assess swallow function and aspiration risk given pt reports of choking on foods, drinks, or even his own spit. He reported his had to give him the Heimlich in the past 1-2 months w/ food ejected. He was unable to recall DIESEL TRUCK TECHNICIAN what food he choked on. Current Diet Ordered: Regular textures / Thin liquids Dentition: Natural Teeth Mental Status: WNL (Able to follow commands for evaluation w/o difficulty, but unable to recall food from recent choking episode) Respiratory Status: Oxygenating on 4L/M nasal cannula Penetration-Aspiration Scale Penetration-Aspiration Scale: OBJECTIVE ASSESSMENT OF SWALLOW FUNCTION (QUANTITATIVE ? PER TRIAL): PENETRATION / ASPIRATION SCALE (ROBISON): 1 = does not enter airway 2 = enters airway/above vocal folds/ejected 3 = enters airway/above vocal folds/not ejected 4 = enters airway/contacts vocal folds/ejected 5 = enters airway/contacts vocal folds/not ejected 6 = enters airway/below vocal folds/ejected 7 = enters airway/below vocal folds/not ejected despite effort 8 = enters airway/below vocal folds/no effort VIDEOFLOROSCOPIC SCALE SCORE (ROBISON): Grade I = aspiration of material that has penetrated into the laryngeal vestibule, intact cough reflex Grade II = aspiration < 10 % of the bolus, intact cough reflex Grade III = aspiration of < 10 % of the bolus, reduced cough reflex or aspiration of > 10 % of the bolus, intact cough reflex Grade IV = aspiration of > 10 % of the bolus, reduced cough reflexPenetration-Aspiration Scale Score Thin Liquid via teaspoon: Result: 1= does not enter airway Thin Liquid via teaspoon Trial 2: Result: 3= enters airways/above vocal folds/not ejected Thin Liquid via sequential sips: cup: Result: 3= enters airways/above vocal folds/not ejected Thin via small single sip: cup, cued swallow hard and fast: Result: 2= enter airway/above vocal folds/ejected [place] Thick Liquid via small single sip: cup: Result: 2= enter airway/above vocal folds/ejected Pudding via teaspoon: Result: 1= does not enter airway Comment: Esophageal screen - Esophageal retention in the middle and lower esophagus. Thin Liquid via single sip: straw: Result: 3= enters airways/above vocal folds/not ejected Comment: Esophageal screen - Esophageal retention of barium pudding and liquid wash throughout the esophagus w/ retrograde flow of thin liquid barium through the UES to the pyriform sinuses. DIESEL TRUCK TECHNICIAN discontinued study due to concerns for reflux aspiration and/or regurgitation. Oral Phase Labial Seal: No Labial Escape Tongue Control During Bolus Hold: Posterior escape of less than half of bolus Bolus Transport/Lingual Motion: Delayed initiation of tongue motion Oral Residue: Trace residue lining oral structures Pharyngeal Phase Initiation of Pharyngeal Swallow: Bolus head in pyriforms Soft Palate Elevation: Trace column of contrast/air between soft palate and pharyngeal wall Laryngeal Elevation: Partial superior movement thyroid cart/partial apprx aryt-epig petiole (trace retention in the UES) Anterior Hyoid Excursion: Complete anterior movement Epiglottic Movement: Complete inversion Laryngeal Vestibule Closure at Height of Swallow: Incomplete; narrow column of air/contrast in laryngeal vestibule Pharyngeal Stripping Wave: Present - complete Pharyngoesophageal Segment Opening: Parital distension and partial duration; parital obstruction of flow Tongue Base Retraction: Trace column of contrast between tongue base & post. pharyngeal wall Pharyngeal Residue: Trace residue within or on pharyngeal structures Esophageal Phase Esophageal Clearance: Esophageal retention w/ retrograde flow through pharyngoesophageal seg Diagnosis/Impression Diagnosis: Mild oropharyngeal dysphagia R13.12; Esophageal dysphagia R13.14 Impression: The oral phase is primarily marked by... -Premature posterior loss of <1/2 of thin liquids to the pyriforms prior to swallow onset. -Delayed tongue motion for A-P transport. -Did not assess mastication due to poor esophageal clearance of pudding and thin liquid trials. The pharyngeal phase is primarily marked by... -Mild delay initiating the swallow. -Decreased airway closure during the swallow due to decreased laryngeal elevation. Consistent laryngeal penetration of thin liquids that did not fully eject from the laryngeal vestibule; however, swallowing hard and fast improved timeliness of swallow and ejected penetrated barium from the laryngeal vestibule. No aspiration observed. The esophageal phase is primarily marked by... -Esophageal retention of pudding and thin liquids throughout the esophagus w/ retrograde flow of thin liquid barium through the UES to the pyriform sinuses. DIESEL TRUCK TECHNICIAN discontinued study due to concerns for reflux aspiration and/or regurgitation. Recommendations Diet: Thin Liquids (Clear liquids prior to GI consult) Comment: Advance diet as recommended by GI following intervention. DIESEL TRUCK TECHNICIAN to follow for ongoing assessment of diet tolerance. Compensatory Strategies: Small Sips (Swallow hard and fast), Slow Rate, Alternate bites/solids and sips/liquids, Sitting upright and Remain sitting upright for 30 minutes after PO intake Supervision: Distant Supervision Recommend Repeat Modified Barium Swallow: TBD Need for Skilled Speech Therapy Services: Yes Comment: -Train the patient in use of strategies to decrease risk for aspiration and reflux aspiration. -Ongoing assessment of diet tolerance of recommended textures. Ok to advance diet as recommended by GI following GI interventions. -Train the patient in oropharyngeal exercise program (lingual resistance, Sherry, effortful). Recommended Referrals: GI Consult Education Completed: 1. Described result of evaluation., 2. Pt understands evaluation & agrees with goals and treatment plan. and 4. Family/caregivers understand evaluation & agree w/ goals & tx plan. Status Active ST Patient: Active Contact Information [facility]:: Deborah Fowler M.A. CCC-DIESEL TRUCK TECHNICIAN? Speech-Language Pathologist?? [facility] [address] [place] [address]? [email or web address]?? [phone] 08/07/24 1639 <Electronically signed by Deborah Fowler M.A., CCC-DIESEL TRUCK TECHNICIAN> Initialized on 08/29/24 10:55 - END OF NOTE Reference: Neuro-QoL instrument Radiation Oncology Patient Plan Plan Plan: Speech therapy is recommended to treat Mild oropharyngeal dysphagia R13.12. Patient has requested to hold therapy until after a physician visit and then he will contact [employer] to schedule at his discretion. Recommendations Treatment Warranted: Yes Treatment Warranted: Dysphagia Progress Prognosis: Good Frequency Additional (Frequency): 1-2 visits at once per week then reduce to one time per month Duration: 3 Months Visits in this POC: 4 Patient/Family Goal Patient/Family Goal: Patient wishes to be able to eat regularly. Goals that are Established Determination:: Goals will be added/modified as deemed necessary and appropriate. Therapy will be discontinued when results of re-evaluation indicate therapy is no longer needed or lack of progress has been documented. Goal #1-5 Goal #1: Patient will tolerate the least restrictive means of nutrition to facilitate adequate hydration/nutrition with optimum safety and efficiency of swallowing function during P.O. intake without overt signs and symptoms of aspiration. Goal #2: Patient will demonstrate and utilize recommended oropharyngeal strengthening exercises to facilitate improved oropharyngeal strength and coordination with minimal cueing and prompting provide by the clinician, across 3 to 3 sessions. Education Patient has Indicated that the Following Identified Educational Needs: None The Patient has indicated that they have no educational or learning abilities that may effect their care.: Yes Patient Instruction Patient Education: Diagnosis, Treatment Plan, Diet Level and Home Exercise Program Person Taught: Patient Response to teaching: Verbalize Understanding and Has Prior Knowledge
--- NOTE | 2024-10-20 11:51 | HP.SP.DC_ITS ---
ST Discharge Summary Discharged: Discharge: Andrew Ervin discharged from [facility] as of 10/20/24. He was evaluated on 09/02/24 with a diagnosis of POLIO/RESPIRATORY FAILURE/DEBILITY. Therapy was recommended 1-2 weekly but no visits were completed at he was admitted to the hospital on 09/05/24. He has not returned to therapy due to lengthy hospital admit. Thank you for allowing me to participate in the care of this patient.
== END 2024-08-22 19:00 | disposition home or self-care (01) ==
LOC: SP 13:00
PROVIDERS: PCP Family Medicine; Referring Provider Family Medicine Geriatric Medicine; Visit Provider Family Medicine Geriatric Medicine
DX: J96.90 Respiratory failure, unspecified, unspecified whether with hypoxia or hypercapnia (principal); R53.81 Other malaise; A80.9 Acute poliomyelitis, unspecified
CPT/HCPCS: 92610; 97162; 97530

== ENCOUNTER → 2024-08-28 | Outpatient (CLI) | payer MEDICARE, SELFPAY ==
[2024-08-28 16:51] LABS: Hematocrit 39.8 % (40-54); Hemoglobin 13.1 g/dL (13.0-16.5); Mean Corp Hgb Conc 32.9 g/dL (32-36); Mean Corpuscular Hgb 30.8 pg (27.0-32.0); Mean Corpuscular Volume 93.4 fL (80-94); Mean Platelet Vol. 10.2 fl (6.2-12.0); Platelet Count 240 K/mm3 (150-450); RBC Distribution Width CV 13.8 % (11.6-14.6); RBC Distribution Width SD 47.4 fl (35.1-43.9); Red Blood Count 4.26 M/mm3 (4.6-6.2); White Blood Count 8.1 K/mm3 (4.4-11.0)
[2024-08-28 17:37] LABS: AST(SGOT) 18 U/L (<=37); Alanine Aminotransfer ALT/SGPT 12 U/L (<=46); Alkaline Phosphatase 70 U/L (40-129); Anion Gap 13 (5-15); BUN 18 mg/dL (4-19); BUN/Creat Ratio 31.8 RATIO (10-20); Calcium,Total 9.2 mg/dL (7.6-11.0); Carbon Dioxide 29.1 mmol/L (21.0-32.0); Chloride 98 mmol/L (98-108); Cholesterol 150 mg/dL (<=200); Creatinine, Serum 0.55 mg/dL (0.70-1.20); EST Glomerular Filtration Rate 102 (>60); Globulin 5.6 g/dL (2.2-4.2); Glucose 117 mg/dL (70-99); High Density Lipoprotein 57 mg/dL; Low Density Lipoprotein Calc. 65 mg/dL; Potassium 3.8 mmol/L (3.3-5.1); Protein, Total 6.2 g/dL (5.9-8.4); Sodium Level 140 mmol/L (133-145); Total Bilirubin 0.35 mg/dL (0.00-1.30); Triglycerides 143 mg/dL; Very Low Density Lipoprotein 29 mg/dL (5-40); cholesterol:hdl ratio screen 2.65
[2024-08-28 17:59] LABS: ALB/GLOB Ratio 1.9 RATIO (0.9-2.4)
== END | disposition home or self-care (01) ==
LOC: LAB 15:18
PROVIDERS: PCP Family Medicine; Referring Provider Family Medicine; Visit Provider Family Medicine
DX: I15.9 Secondary hypertension, unspecified (principal)
CPT/HCPCS: 36415; 80053; 80061; 85027

== ENCOUNTER 2024-08-29 09:19 | Day surgery (SDC) | payer MEDICARE, SELFPAY ==
[2024-08-29] MEDS: Lidocaine Jelly 2% 20 ML Syringe (URO-JET) 1 APPLIC (09:45)
[2024-08-29 09:50] VITALS: BP 147/113; PULSE 67; RESP 20; TEMP 36.7; O2SAT 95
== END 2024-08-29 10:12 | disposition home or self-care (01) ==
PROVIDERS: PCP Family Medicine; Referring Provider Family Medicine; Visit Provider Internal Medicine Gastroenterology
PROC: F00ZJWZ Instrumental Swallowing and Oral Function Assessment using Swallowing Equipment (ICD-10-PCS; CPT 43235; principal; 2024-08-29 09:25)
DX: R13.10 Dysphagia, unspecified (principal)
CPT/HCPCS: 91010

== ENCOUNTER 2024-09-04 23:32 | Inpatient (IN) | payer MEDICARE, SELFPAY ==
[2024-09-04 23:33] VITALS: PULSE 87; RESP 20; O2SAT 95
[2024-09-04 23:34] VITALS: BP 159/126; PULSE 92; RESP 35; TEMP 36.7; O2SAT 92; BMI 24.3
[2024-09-04 23:42] VITALS: PULSE 87; RESP 20; O2SAT 95
[2024-09-04 23:44] VITALS: BP 175/90; PULSE 89; RESP 24; O2SAT 93
[2024-09-04 23:45] VITALS: BP 175/90; PULSE 91; RESP 19; O2SAT 93
--- NOTE | 2024-09-04 23:58 | RAD_ITS ---
PROCEDURE: HIP, UNI W/ PELVIS 2-3 VIEWS 09/05/2024 REASON FOR EXAM: PAIN TECHNIQUE: AP pelvis and two-view left hip; 2 pelvic images as the 1st clips the left iliac crest, 4 total images COMPARISON: 03/11/2021 FINDINGS: Acute left femoral neck fracture with lateral impaction resulting in a valgus deformity. No dislocation. Symmetric appearing SI joints and pubic symphysis appear within limits. A couple of small metallic densities in the region of the prostate. Lower lumbar spondylosis. Partially imaged right femoral gamma nail. RAD/HIP, UNI W/ Pelvis 2-3 Views IMPRESSION: Acute left femoral neck fracture with lateral impaction resulting in a valgus d eformity. No dislocation. Reading Location: [id number]
[2024-09-05] VITALS (48 sets, daily range): BP systolic 78–171; BP diastolic 45–147; PULSE 61–130; RESP 14–26; TEMP 36–38.7; O2SAT 89–100
[2024-09-05] MEDS: Morphine 4 MG/ML Syringe IV (00:06)
[2024-09-05] MEDS: Ondansetron 4 MG/2 ML Vial IV (00:06)
[2024-09-05] MEDS: 0.9% Normal Saline (500mL Bag) 500 ML 999 ML IV (00:06)
[2024-09-05 00:16] LABS: Hematocrit 42.9 % (40-54); Hemoglobin 14.3 g/dL (13.0-16.5); Mean Corp Hgb Conc 33.3 g/dL (32-36); Mean Corpuscular Hgb 30.8 pg (27.0-32.0); Mean Corpuscular Volume 92.3 fL (80-94); Mean Platelet Vol. 9.8 fl (6.2-12.0); Neutrophil % 72.3 % (47-70); Platelet Count 268 K/mm3 (150-450); RBC Distribution Width CV 13.5 % (11.6-14.6); RBC Distribution Width SD 45.7 fl (35.1-43.9); Red Blood Count 4.65 M/mm3 (4.6-6.2); White Blood Count 6.3 K/mm3 (4.4-11.0)
[2024-09-05 00:17] LABS: Absolute Lymphocyte Count 0.86 X10^3/uL (0.83-4.51); Absolute Neutrophil Count 4.6 X10^3/uL (2.0-7.7); Basophil# 0.06 X10^3/uL; Basophil% 0.9 % (0-1); Eosinophil# 0.17 X10^3/uL; Eosinophils% 2.7 % (0-5); Lymphocyte # 0.86 X10^3/ul (0.83-4.51); Lymphocyte % 13.6 % (19-41); Monocyte# 0.63 X10^3/uL; NRBC Flagged by Analyzer 0 % (0-5); Neutrophil # 4.58 X10^3/uL (2.7-7.7)
--- NOTE | 2024-09-05 00:39 | EDS_ITS ---
HPI History of Present Illness Chief Complaint: Syncope Informant: patient and spouse/S.O. 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 He states this evening he was upstairs in his bedroom sorting papers on his bed. He states he did not experience any type of chest pain or palpitations but had a sudden onset syncopal event. He states that he awoke shortly after striking the floor but noticed that he had pain in the left hip keeping him from being able to stand or ambulate. He denies any headache or change in vision. He states he is concerned that he may have injured his hip secondary to the syncopal event and pain. He also reports that last time he had a bout of syncope he had a urinary tract infection. 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 Wears glasses Cancer Depression Claustrophobia Anxiety Alcohol use Redness of skin Uses crutches Arthritis Bladder disease Back pain History of edema History of diverticulitis Post-polio syndrome Non-smoker BiPAP (biphasic positive airway pressure) dependence History of CHF (congestive heart failure) On home oxygen therapy History of pain when walking History of stress test History of echocardiogram Chronic respiratory failure with hypoxia and hypercapnia On mechanically assisted ventilation Post-poliomyelitis syndrome Acute on chronic respiratory failure with hypoxia and hypercapnia Hypertension Lumbar radicular pain Degenerative scoliosis Scoliosis Segmental dysfunction of thoracic region Home Medications ?Medication ?Instructions ?Recorded ?Last Taken ?Type tamsulosin 0.4 mg capsule 0.4 mg PO BID prostate 02/0208/09/24 History venlafaxine 75 mg capsule,extended 75 mg PO DAILY MOOD 05/31/22 08/09/24 History release 24 hr cyanocobalamin (vitamin B-12) 500 500 mcg PO DAILY sup plement 07/10/24 07/28/24 History mcg tablet losartan 50 mg tablet 50 mg PO QHS BP #0 tabs 11/14 Unknown Rx acetaminophen 500 mg tablet 1,000 mg (2 x 500 mg) PO Q HS #0 08/18/24 Unknown Rx tabs fluticasone propionate 50 1 spray NASAL BID 30 days #1 6 grams 08/18/24 Unknown Rx mcg/actuation nasal spray,suspension omeprazole 40 mg capsule,delayed 40 mg PO QDAY 30 days #30 caps 08/21/24 Unknown Rx release polyethylene glycol 3350 17 8.5 g PO .COMPLEX PRN cons tipation 09/02/24 Unknown History gram/dose oral powder (Miralax) apixaban 5 mg tablet (Eliquis) 5 mg PO BID #180 tabs 0 09/04/24 Unknown Rx sotalol 80 mg tablet 80 mg PO BID #180 tabs 09/04 Unknown Rx Allergy/AdvReac Type Severity Reaction Status Date / Time metronidazole (From Flagyl) AdvReac Nausea/Vom/ Verified 09/04/24 23:42 Diarrhea Family History (Reviewed 09/02/24 @ 14:41 by Soni Lopez PROFILE MILL OPERATOR TAPE CONTROL, PROFILE MILL OPERATOR TAPE CONTROL-C) Father Myocardial infarction Heart disease Mother Shy-Drager syndrome Other CVA (cerebral vascular accident) Surgical History (Reviewed 09/02/24 @ 14:41 by Soni Lopez PROFILE MILL OPERATOR TAPE CONTROL, PROFILE MILL OPERATOR TAPE CONTROL-C) History of selective injection of anesthetic agent around lumbar nerve root Hx of lithotripsy History of cardiac catheterization Hx of cystoscopy H/O adenoidectomy History of uvulectomy Hip fracture, right History of open reduction and internal fixation (ORIF) procedure Right tibial fracture H/O spinal fusion Social History (Reviewed 09/02/24 @ 14:41 by Soni Lopez PROFILE MILL OPERATOR TAPE CONTROL, PROFILE MILL OPERATOR TAPE CONTROL-C) household members: spouse housing: house Smoking Status: Never smoker substance use type: does not use ROS ROS ED Constitutional Constitutional ED: Denies chills or fever(s) Eyes Eyes: Denies blurry vision or change in vision ENT ENT ED: Denies sore throat Cardiovascular Cardiovascular: Reports other Details: Positive syncope ; Denies chest pain, palpitations or racing heartbeat Respiratory/Chest Respiratory/Chest: Denies cough or dyspnea Gastrointestinal Gastrointestinal: Denies abdominal pain, diarrhea, nausea or vomiting Genitourinary Genitourinary ED: Denies dysuria or urinary frequency Musculoskeletal Musculoskeletal: Reports other Details: Positive left hip pain ; Denies back pain or neck pain Integumentary Denies Abrasions or rash Neurologic Neurologic: Denies headache(s) or paresthesias Hematologic/Lymphatic Hematologic/Lymphatic: Reports easy bleeding and easy bruising EXAM Physical Exam Const Vital Signs: 09/04/24 23:33 09/04/24 23:34 09/04/24 23:42 Temperature 98.1 F Temperature Source Oral Pulse Rate 87 92 87 Respiratory Rate 20 H 35 H 20 H Respiratory Pattern Blood Pressure 159/126 H Blood Pressure Mean 137 Pulse Ox 95 92 95 Oxygen Delivery Method Oxygen Flow Rate (L/min) Fraction of Inspired Oxygen (FIO2) 09/04/24 23:44 09/04/24 23:45 09/05/24 00:00 Temperature Temperature Source Pulse Rate 89 91 96 Respiratory Rate 24 H 19 H 20 H Respiratory Pattern Blood Pressure 175/90 H 175/90 H 149/53 H Blood Pressure Mean 118 106 72 Pulse Ox 93 93 93 Oxygen Delivery Method Room Air Oxygen Flow Rate (L/min) 2 Fraction of Inspired Oxygen (FIO2) 09/05/24 00:31 09/05/24 00:46 09/05/24 01:00 Temperature Temperature Source Pulse Rate 119 H 130 H Respiratory Rate 23 H Respiratory Pattern Blood Pressure 159/68 H 171/94 H Blood Pressure Mean 88 113 Pulse Ox Oxygen Delivery Method Oxygen Flow Rate (L/min) Fraction of Inspired Oxygen (FIO2) 09/05/24 02:00 09/05/24 02:21 09/05/24 03:00 Temperature Temperature Source Pulse Rate 107 H 100 88 Respiratory Rate 26 H 18 14 Respiratory Pattern Normal Blood Pressure 165/85 H 101/59 L Blood Pressure Mean 111 73 Pulse Ox 93 93 97 Oxygen Delivery Method Bi-pap Bi-pap Oxygen Flow Rate (L/min) Fraction of Inspired Oxygen (FIO2) 35 09/05/24 03:46 09/05/24 03:51 09/05/24 04:00 Temperature Temperature Source Pulse Rate 84 96 78 Respiratory Rate 20 H 15 23 H Respiratory Pattern Tachypnea Blood Pressure 171/90 H Blood Pressure Mean 117 Pulse Ox 98 100 96 Oxygen Delivery Method Ambu-Bag Mechanical Ventilator Oxygen Flow Rate (L/min) 60 Fraction of Inspired Oxygen (FIO2) 60 09/05/24 04:30 09/05/24 04:31 09/05/24 04:36 Temperature 96.8 F L 96.9 F L Temperature Source Core Core Pulse Rate 98 100 104 H Respiratory Rate 21 H 26 H 20 H Respiratory Pattern Blood Pressure 78/47 L 96/60 120/86 H Blood Pressure Mean 57 72 97 Pulse Ox 100 95 100 Oxygen Delivery Method Mechanical Ventilator Mechanical Ventilator Mechanical Ventilator Oxygen Flow Rate (L/min) 40 60 Fraction of Inspired Oxygen (FIO2) 09/05/24 04:42 Temperature Temperature Source Pulse Rate 104 H Respiratory Rate 21 H Respiratory Pattern Blood Pressure 104/45 L Blood Pressure Mean 64 Pulse Ox 100 Oxygen Delivery Method Mechanical Ventilator Oxygen Flow Rate (L/min) 40 Fraction of Inspired Oxygen (FIO2) Positive well nourished and well developed General Appearance ED: well developed; Negative for pallor HEENT HEENT Narrative: Normocephalic atraumatic No signs of depressed or basilar skull fracture Mucous membranes are slightly dry and tacky; no tongue or lip swelling no oral lesions no airway edema or compromise Eyes PERRL and EOMs intact bilaterally General Eye ED: Negative for pale conjunctiva or scleral icterus Neck supple Neck Narrative: No bony deformity or step-off of the cervical spine no midline tenderness to palpation Patient has full active range of motion without pain Chest Wall palpation of chest normal Chest Narrative: No bony deformity or subcutaneous emphysema noted Resp normal respiratory effort Resp Narrative: Breath sounds are diminished throughout right greater than left secondary to history of severe scoliosis causing restrictive/compressive lung disease No crackles or rhonchi or wheezes noted. Cardio regular rhythm Rate: tachycardic and other Other Details: Tachycardic rate with regular rhythm Radial and carotid pulses are equal and symmetric There is an occasional ectopic beat noted GI normal to inspection, nondistended, normoactive bowel sounds, non-tender, non- distended and no masses GI Narrative: No voluntary guarding or rigidity or pulsatile mass Auscultation: normoactive bowel sounds Palpation: soft Back/Spine Back/Spine Narrative: Patient has severe dextroscoliosis secondary to history of polio There is no midline pain on palpation however. Extremity Extremity Narrative: Pelvis is stable there is no overt shortening or rotation to either lower extremity Left lower extremity is neurovascularly intact. Patient has a PFO in place which is chronic in nature secondary to history of polio There is pain on palpation near the left greater trochanter region of the hip. No obvious joint effusion Neuro oriented x3, CN's II-XII intact bilaterally and no sensory deficits noted Neuro Narrative: GCS of 15 Cranial nerves II through XII are grossly intact without focal neurologic deficit Sensorium / Orientation: alert Psych mental status grossly normal Skin no rashes or lesions noted and no wounds General Skin Exam: Negative for jaundice or pallor MDM MDM MDM Narrative Medical decision making narrative: Patient arrived to the ER awake and alert with normal neurologic exam. He reported that he was standing when he had a syncopal event causing him to injure his left hip. He denied palpitations but does have a history of atrial fibrillation. There is concern that patient could have went from normal sinus to A-fib and the elevation in rate and the abnormal heart rhythm precipitated a syncopal event. As he was standing this also could be due to orthostasis. He is on Eliquis and there is concern for a traumatic or spontaneous subarachnoid or subdural hemorrhage as well. With the pain in the left hip patient could have a contusion versus fracture versus dislocation. He does state the last time he had a syncopal event he had a UTI and therefore this is in the differential diagnosis as well. Secondary to this basic labs were obtained as well as EKG. EKG documented sinus tachycardia with frequent PVCs. Head CT revealed no signs of acute bleed or mass. Laboratory studies revealed no clinically significant findings such as leukocytosis lactic acidosis acute kidney injury or electrolyte abnormality. His urine sample was positive for infectious changes however. Therefore the urine was sent for culture and he was started on Rocephin. The case was discussed with orthopedic surgeon Dr. Hargrove. He states that due to the Eliquis use surgery could not be today and therefore recommends transfer as he will not be in town over the weekend to perform the surgery. The case was initially discussed with [facility] and they did accept the patient. However while waiting for potential transfer the patient's mental status began to diminish. He does have a known history of respiratory failure. A VBG was checked and his CO2 was elevated at 98. reports he is to wear a facemask when he sleeps so therefore he was placed on BiPAP. He was on the machine for roughly 1 hour. Mental status remains diminished and repeat VBG shows that his CO2 is now climbed to 125. With the worsening CO2/respiratory failure not responding to noninvasive ventilation the decision was made to intubate. At this time as the patient has decompensated and is now requiring intubation secondary to his acute on chronic respiratory failure with hypercapnia I do not feel that he is safe for transfer nor would he be medically cleared for surgery. Therefore the case was discussed with the hospitalist who agrees to accept the patient to the ICU for continued treatment. The confirms that the patient is a full code at this time The patient was intubated using the glide scope. He was sedated with 20 mg of IV. Following this the glide scope was used to visualize the vocal cords. A 8.0 ET tube was then passed with 1 attempt to the trachea. Confirmation was by color change capnography as well as bilateral breath sounds and fogging within the tube. Patient tolerated procedure well without complication. History & Record Review Discussion w/independent historian: Patient and Significant other Lab Data Attestation: I reviewed the patient's lab results. Labs: Laboratory Results - last 24 hr 09/04/24 09/05/24 09/05/24 00:13 00:13 01:00 WBC 6.3 RBC 4.65 Hgb 14.3 Hct 42.9 MCV 92.3 MCH 30.8 MCHC 33.3 RDW Std Deviation 45.7 H RDW Coeff of Larry 13.5 Plt Count 268 MPV 9.8 Immature Gran % (Auto) 0.500 Neut % (Auto) 72.3 H Lymph % (Auto) 13.6 L Monona % (Auto) 10.0 Eos % (Auto) 2.7 Baso % (Auto) 0.9 Absolute Neuts (auto) 4.6 Absolute Lymphs (auto) 0.86 Nucleated RBC % 0 Sodium 139 Potassium 4.1 Chloride 96 L Carbon Dioxide 30.6 Anion Gap 12 BUN 16 Creatinine 0.45 L Estim Creat Clear Calc 64.75 Est GFR (MDRD) Non-Af 109 BUN/Creatinine Ratio 36.5 H Glucose 107 H Lactic Acid Calcium 9.4 Magnesium 2.0 Procalcitonin TSH 0.927 Urine Color Yellow Urine Clarity Clear Urine pH 6.0 Ur Specific Woodruff 1.015 Urine Protein 100 H Urine Glucose (UA) Normal Urine Ketones Negative Urine Occult Blood 150 H Urine Nitrite Negative Urine Bilirubin Negative Urine Urobilinogen Normal Ur Leukocyte Esterase 500 H Urine RBC 0-5 SEEN Urine WBC 25-50 SEEN Ur Squamous Epith Cells 0 SEEN Urine Bacteria 2+ Urine Mucus 0 SEEN 09/05/24 02:48 WBC RBC Hgb Hct MCV MCH MCHC RDW Std Deviation RDW Coeff of Larry Plt Count MPV Immature Gran % (Auto) Neut % (Auto) Lymph % (Auto) Monona % (Auto) Eos % (Auto) Baso % (Auto) Absolute Neuts (auto) Absolute Lymphs (auto) Nucleated RBC % Sodium Potassium Chloride Carbon Dioxide Anion Gap BUN Creatinine Estim Creat Clear Calc Est GFR (MDRD) Non-Af BUN/Creatinine Ratio Glucose Lactic Acid < 1.0 Calcium Magnesium Procalcitonin 0.03 TSH Urine Color Urine Clarity Urine pH Ur Specific Woodruff Urine Protein Urine Glucose (UA) Urine Ketones Urine Occult Blood Urine Nitrite Urine Bilirubin Urine Urobilinogen Ur Leukocyte Esterase Urine RBC Urine WBC Ur Squamous Epith Cells Urine Bacteria Urine Mucus ABG Data ABG results: ABG 09/05/24 09/05/24 02:22 03:30 Specimen Type ROMINA ROMINA Sample Site Not entered Not entered O2 % 3.0 100.0 VBG pH 7.16 L* 7.08 L* VBG pO2 75 H 143 H VBG HCO3 36 H 37 H VBG Total CO2 39 H 41 H VBG O2 Sat (Calc) 89 H 98 H VBG Base Excess 7 H 7 H POC Mix VBG pCO2 Pt Tmp 98.9 H* 123.8 H* Respiration Rate 14 O2 Delivery Device Not entered BiPAP Tidal Volume 400.0 POC PEEP 5 Crit Call To/Read Back Yes Yes Blood Gas Notified Whom andes Blood Gas Notified Time 02:24:21 Radiography Diagnostic Testing: Clinical Impression(s) from Imaging Studies Hip/Pelvis X-Ray 09/04/24 23:58 IMPRESSION: Acute left femoral neck fracture with lateral impaction resulting in a valgus deformity. No dislocation. Reading Location: [facility] Chest X-Ray 09/05/24 04:17 IMPRESSION: Endotracheal tube 4 cm above the gail. Nasogastric tube with tip and side port crosses the diaphragm and tip extending off the inferior edge of the film. Marked scoliosis with associated deformity of the right more than left hemithorax again noted. Possible area of atelectasis at the medial right base. The lungs otherwise appear clear. Cardiac silhouette again appears large for technique. Reading Location: [facility] Brain CT 09/05/24 23:57 IMPRESSION: No intracranial hemorrhage, mass effect or CT evidence of large vascular territory acute infarct. Small patchy areas of white matter low attenuation statistically would represent chronic small-vessel ischemic change and is not significantly changed in appearance. Reading Location: [facility] Left hip x-ray with 1 view pelvis as interpreted by the emergency medicine physician reveals an impacted femoral neck fracture 1 view chest x-ray as interpreted by the emergency medicine physician reveals the ET tube to be in proper position without pneumothorax or pneumonia. Patient does have dextroscoliosis with right lung compression which is chronic in nature Management Discussion w/another healthcare provider: Hospitalist and E Commerce Specialist Critical Care Time Critical Care Time: Yes Critical care time (excluding procedures): Discussing w/Patient &/or Family/Air Export Coordinator, Discussing w/Consultants, Performing Direct Patient Care at Bedside and - (Critical care time of 37 minutes) Discharge Plan Dx/Rx/DC Orders Clinical Impression: Acute on chronic respiratory failure with hypercapnia, Paroxysmal atrial fibrillation, UTI (urinary tract infection), Syncope, Closed fracture of neck of left femur, Current use of joint terminal attack controller anticoagulation Disposition Disposition: Acute Care Hospital [facility]
[2024-09-05 01:03] LABS: Mucous, Urine 0 SEEN /hpf (<or=2+); Squamous Epithelial Cells - UA 0 SEEN /hpf (0-5)
[2024-09-05 01:08] LABS: Glucose, Dipstick Normal (Normal); Ketone-Dipstick Negative (Negative); Leukocyte Esterase-Dipstick 500 /ul (Negative); Nitrite-Dipstick Negative (Negative); Occult Blood-Urine 150 /ul (Negative); Protein-Dipstick 100 mg/dl (Negative); Specific Gravity, Urine 1.015 (1.002-1.030); Urine Bilirubin Dipstick Negative (Negative); Urine Urobilinogen Normal (Normal)
[2024-09-05] MEDS: dilTIAZem 25 MG/5 ML Vial 20 MG IV BOLUS (01:19)
[2024-09-05 01:20] LABS: Anion Gap 12 (5-15); BUN 16 mg/dL (4-19); BUN/Creat Ratio 36.5 RATIO (10-20); Calcium,Total 9.4 mg/dL (7.6-11.0); Carbon Dioxide 30.6 mmol/L (21.0-32.0); Chloride 96 mmol/L (98-108); Creatinine, Serum 0.45 mg/dL (0.70-1.20); EST Glomerular Filtration Rate 109 (>60); Estimated Creatinine Clearance 64.75 ml/min (50-250); Glucose 107 mg/dL (70-99); Potassium 4.1 mmol/L (3.3-5.1); Sodium Level 139 mmol/L (133-145)
[2024-09-05 01:27] LABS: Color, Urine Yellow (Yellow); Urine Clarity Clear (Clear)
[2024-09-05 01:28] LABS: Bacteria 2+ /hpf (None Seen); Red Blood Cells-Urine 0-5 SEEN /hpf (0-5); White Blood Cells 25-50 SEEN /hpf (0-5)
[2024-09-05] MEDS: 0.9% Normal Saline (1000mL) 1,000 ML 125 ML IV (01:28)
[2024-09-05 01:46] LABS: Thyroid Stim Hormone (TSH) 0.927 uIU/mL (0.300-4.200)
[2024-09-05] MEDS: Ceftriaxone 1 GM/50 ML BAG IV (02:12)
[2024-09-05 02:27] LABS: Blood Gas Specimen Type VEN; O2 Delivery Device Not entered; SITE Not entered; VBG BASE EXCESS 7 mmol/L (-1.0-3.5); VBG Bicarbonate 36 mmol/L (22-26); VBG PO2 75 mmHg (25-40); VBG SO2 89 % (50-70); VBG TCO2 39 mmol/L (23-33); VBG pCO2 98.9 mmHg (41-51); VBG pH 7.16 (7.32-7.42)
[2024-09-05 03:18] LABS: Procalcitonin 0.03 ng/mL (<=0.10)
--- NOTE | 2024-09-05 03:30 | CPS ---
critical values on VBG. Dr cuevas notified of the critical values
[2024-09-05 03:34] LABS: Blood Gas Specimen Type VEN; O2 Delivery Device BiPAP; PEEP 5; RR 14; SITE Not entered; VBG BASE EXCESS 7 mmol/L (-1.0-3.5); VBG Bicarbonate 37 mmol/L (22-26); VBG PO2 143 mmHg (25-40); VBG SO2 98 % (50-70); VBG TCO2 41 mmol/L (23-33); VBG pCO2 123.8 mmHg (41-51); VBG pH 7.08 (7.32-7.42)
[2024-09-05 03:37] LABS: Lactic Acid < 1.0 mmol/L (0.0-2.0)
[2024-09-05] MEDS: Etomidate 20 MG/10 ML Vial IV (03:47)
[2024-09-05] MEDS: Propofol 200 MG/20 ML Vial 50 MG IV BOLUS (03:56)
[2024-09-05] MEDS: Propofol 10MG/Ml 1,000 MG/100 ML Bottle 3.9 MG CONT INF (04:02)
--- NOTE | 2024-09-05 04:15 | EKG12_ITS ---
Test Reason : ST ELEVATION Blood Pressure : */* mmHG Vent. Rate : 60 BPM Atrial Rate : 60 BPM P-R Int : 154 ms QRS Dur : 74 ms QT Int : 436 ms P-R-T Axes : 49 21 59 degrees QTcB Int : 436 ms Normal sinus rhythm with sinus arrhythmia Normal ECG Confirmed by ALEXIS FERNANDES MD ([id number]), news videotape editor ОЛЬГА MARQUEZ ([id number]) on 09/08/2024 8:44:17 AM Referred By: NOLA Confirmed By: ALEXIS FERNANDES MD
--- NOTE | 2024-09-05 04:17 | RAD_ITS ---
PROCEDURE: CHEST 1 VIEW (PORTABLE) 09/05/2024 REASON FOR EXAM: S/P INTUBATION TECHNIQUE: Frontal view of the chest. COMPARISON: 08/06/2024 FINDINGS: Endotracheal tube 4 cm above the gail. Nasogastric tube with tip and side port crosses the diaphragm and tip extending off the inferior edge of the film. Marked scoliosis with associated deformity of the right more than left hemithorax again noted. Possible area of atelectasis at the medial right base. The lungs otherwise appear clear. Cardiac silhouette again appears large for technique. Atherosclerotic changes of the aortic arch. RAD/Chest 1 View (Portable) IMPRESSION: Endotracheal tube 4 cm above the gail. Nasogastric tube with tip and side port crosses the diaphragm and tip extending off the inferior edge of the film. Marked scoliosis with associated deformity of the right more than left hemithor ax again noted. Possible area of atelectasis at the medial right base. The lungs otherwise appe ar clear. Cardiac silhouette again appears large for technique. Reading Location: [id number]
[2024-09-05] MEDS: Atropine Sulfate 1 MG/10 ML Syringe IV (04:26)
[2024-09-05] MEDS: fentaNYL drip 100 ML 2.5 MCG CONT INF (04:40)
--- NOTE | 2024-09-05 05:13 | EKG12_ITS ---
Test Reason : CARL Blood Pressure : */* mmHG Vent. Rate : 61 BPM Atrial Rate : 61 BPM P-R Int : 156 ms QRS Dur : 62 ms QT Int : 458 ms P-R-T Axes : 32 -4 13 degrees QTcB Int : 461 ms Sinus rhythm with Premature atrial complexes Possible Left atrial enlargement Borderline ECG No previous ECGs available Baseline artifact Confirmed by Matt Machado ([id number]), department editor DELMIS CORREA ([id number]) on 09/23/2024 8:01:26 AM Referred By: CHAI Confirmed By: Matt Machado
[2024-09-05] MEDS: 0.9% Normal Saline (1000mL) 1,000 ML 150 ML IV ×3 (05:18→15:20)
[2024-09-05 05:20] LABS: CPK Total, Creatine Kinase 75 U/L (24-195); Triglycerides 80 mg/dL
[2024-09-05 05:27] LABS: Allen Test Positive; Base Excess 9 mmol/L (-2 to +2); Blood Gas Specimen Type ART; Mode AC; O2 Delivery Device Adult Vent; PEEP 5; PO2 78 mmHG (75-100); RR 20; SITE L Radial; SO2 96 % (95-99); Total Carbon Dioxide 34 mmol/L; pCO2 45.8 mmHg (35-45); pH 7.47 (7.35-7.45)
--- NOTE | 2024-09-05 05:37 | HP.PCM.HOS_ITS ---
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 The history is provided by the as the patient needed urgent intubation mechanical ventilation in the ED. Yesterday evening 09/04/2024 he was sorting papers in his bedroom when the heard him fall down to the ground. He woke up shortly after hitting the floor but noted that he had pain in his left hip preventing him from getting up and he had difficulty in ambulating. He has had a similar episode of syncope in the past and also had urinary tract infection diagnosed at the time. The patient is being evaluated in the ED for prospective orthopedic intervention but given his ongoing Eliquis he cannot undergo surgery tomorrow. While waiting in the ED his mental status changed and his pCO2 on VBG was 98. He was initially placed on a BiPAP but appreciated did not improve and required urgent intubation and mechanical ventilation. Patient was recently discharged from TCU following a prolonged admission for similar concerns of syncope with fall and type II respiratory failure. During that admission he was diagnosed with A-fib and was started on Eliquis At the time presentation in the ED, he was afebrile, pulse 98, initial blood pressure 171/94 respiratory rate 26 and satting 93% on BiPAP. His post intubation and ventilation ABG showed a pH of 7.47 with a bicarb of 33 PCO2 of 45.8. This was improved from his prior VBG showing pH of 7.08 His lactic acid is less than 1 and total creatinine kinase is normal TSH 0.9 urine occult blood positive leuk esterase +2+ bacteria seen and 25-50 WBCs present [facility] Medical History 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 Wears glasses Cancer Depression Claustrophobia Anxiety Alcohol use Redness of skin Uses crutches Arthritis Bladder disease Back pain History of edema History of diverticulitis Post-polio syndrome Non-smoker BiPAP (biphasic positive airway pressure) dependence History of CHF (congestive heart failure) On home oxygen therapy History of pain when walking History of stress test History of echocardiogram Chronic respiratory failure with hypoxia and hypercapnia On mechanically assisted ventilation Post-poliomyelitis syndrome Acute on chronic respiratory failure with hypoxia and hypercapnia Hypertension Lumbar radicular pain Degenerative scoliosis Scoliosis Segmental dysfunction of thoracic region Home Medications ?Medication ?Instructions ?Recorded ?Last Taken ?Type tamsulosin 0.4 mg capsule 0.4 mg PO BID prostate 02/0208/09/24 History venlafaxine 75 mg capsule,extended 75 mg PO DAILY MOOD 05/31/22 08/09/24 History release 24 hr cyanocobalamin (vitamin B-12) 500 500 mcg PO DAILY sup plement 07/10/24 07/28/24 History mcg tablet losartan 50 mg tablet 50 mg PO QHS BP #0 tabs 11/14 Unknown Rx acetaminophen 500 mg tablet 1,000 mg (2 x 500 mg) PO Q HS #0 08/18/24 Unknown Rx tabs fluticasone propionate 50 1 spray NASAL BID 30 days #1 6 grams 08/18/24 Unknown Rx mcg/actuation nasal spray,suspension omeprazole 40 mg capsule,delayed 40 mg PO QDAY 30 days #30 caps 08/21/24 Unknown Rx release polyethylene glycol 3350 17 8.5 g PO .COMPLEX PRN cons tipation 09/02/24 Unknown History gram/dose oral powder (Miralax) apixaban 5 mg tablet (Eliquis) 5 mg PO BID #180 tabs 0 09/04/24 Unknown Rx sotalol 80 mg tablet 80 mg PO BID #180 tabs 09/04 Unknown Rx Allergy/AdvReac Type Severity Reaction Status Date / Time metronidazole (From Flagyl) AdvReac Nausea/Vom/ Verified 09/04/24 23:42 Diarrhea Family History Father Myocardial infarction Heart disease Mother Shy-Drager syndrome Other CVA (cerebral vascular accident) Surgical History History of selective injection of anesthetic agent around lumbar nerve root Hx of lithotripsy History of cardiac catheterization Hx of cystoscopy H/O adenoidectomy History of uvulectomy Hip fracture, right History of open reduction and internal fixation (ORIF) procedure Right tibial fracture H/O spinal fusion Social History household members: spouse housing: house Smoking Status: Never smoker substance use type: does not use ROS Review of Systems ROS Unobtainable: due to endotracheal tube Vital Signs Vital Signs Vital Signs: 09/04/24 23:33 09/04/24 23:34 09/04/24 23:42 Temperature 98.1 F Temperature Source Oral Pulse Rate 87 92 87 Respiratory Rate 20 H 35 H 20 H Respiratory Pattern Blood Pressure 159/126 H Blood Pressure Mean 137 Pulse Ox 95 92 95 Oxygen Delivery Method Oxygen Flow Rate (L/min) Fraction of Inspired Oxygen (FIO2) 09/04/24 23:44 09/04/24 23:45 09/05/24 00:00 Temperature Temperature Source Pulse Rate 89 91 96 Respiratory Rate 24 H 19 H 20 H Respiratory Pattern Blood Pressure 175/90 H 175/90 H 149/53 H Blood Pressure Mean 118 106 72 Pulse Ox 93 93 93 Oxygen Delivery Method Room Air Oxygen Flow Rate (L/min) 2 Fraction of Inspired Oxygen (FIO2) 09/05/24 00:31 09/05/24 00:46 09/05/24 01:00 Temperature Temperature Source Pulse Rate 119 H 130 H Respiratory Rate 23 H Respiratory Pattern Blood Pressure 159/68 H 171/94 H Blood Pressure Mean 88 113 Pulse Ox Oxygen Delivery Method Oxygen Flow Rate (L/min) Fraction of Inspired Oxygen (FIO2) 09/05/24 02:00 09/05/24 02:21 09/05/24 03:00 Temperature Temperature Source Pulse Rate 107 H 100 88 Respiratory Rate 26 H 18 14 Respiratory Pattern Normal Blood Pressure 165/85 H 101/59 L Blood Pressure Mean 111 73 Pulse Ox 93 93 97 Oxygen Delivery Method Bi-pap Bi-pap Oxygen Flow Rate (L/min) Fraction of Inspired Oxygen (FIO2) 35 09/05/24 03:46 09/05/24 03:51 09/05/24 04:00 Temperature Temperature Source Pulse Rate 84 96 78 Respiratory Rate 20 H 15 23 H Respiratory Pattern Tachypnea Blood Pressure 171/90 H Blood Pressure Mean 117 Pulse Ox 98 100 96 Oxygen Delivery Method Ambu-Bag Mechanical Ventilator Oxygen Flow Rate (L/min) 60 Fraction of Inspired Oxygen (FIO2) 60 09/05/24 04:30 09/05/24 04:31 09/05/24 04:36 Temperature 96.8 F L 96.9 F L Temperature Source Core Core Pulse Rate 98 100 104 H Respiratory Rate 21 H 26 H 20 H Respiratory Pattern Blood Pressure 78/47 L 96/60 120/86 H Blood Pressure Mean 57 72 97 Pulse Ox 100 95 100 Oxygen Delivery Method Mechanical Ventilator Mechanical Ventilator Mechanical Ventilator Oxygen Flow Rate (L/min) 40 60 Fraction of Inspired Oxygen (FIO2) 09/05/24 04:42 09/05/24 05:00 09/05/24 05:19 Temperature 97.3 F L 97.4 F L Temperature Source Core Core Pulse Rate 104 H 102 H 97 Respiratory Rate 21 H 20 H 25 H Respiratory Pattern Blood Pressure 104/45 L 171/147 H 90/75 Blood Pressure Mean 64 155 80 Pulse Ox 100 98 100 Oxygen Delivery Method Mechanical Ventilator Mechanical Ventilator Mechanical Ventilator Oxygen Flow Rate (L/min) 40 40 40 Fraction of Inspired Oxygen (FIO2) 09/05/24 05:31 Temperature 97.4 F L Temperature Source Pulse Rate 91 Respiratory Rate 20 H Respiratory Pattern Blood Pressure 90/75 Blood Pressure Mean 80 Pulse Ox 100 Oxygen Delivery Method Oxygen Flow Rate (L/min) Fraction of Inspired Oxygen (FIO2) Weight Weight: 141 lb 14.4 oz Body Mass Index (BMI) 24.3 Physical Exam Const Constitutional Narrative: Ongoing sedation HEENT normocephalic and head/scalp atraumatic Eyes PERRL and EOMs intact bilaterally Neck no lymphadenopathy and supple Resp normal respiratory effort Cardio regular rate and regular rhythm GI normal to inspection, nondistended, normoactive bowel sounds Extremity Extremity Narrative: Movements could not be examined, pain could not be elicited Neuro Neuro Narrative: Ongoing sedation with mechanical ventilation Results Medical Records Data Attestation: I reviewed the patient's medical records Lab / Micro Data Attestation: I reviewed the patient's lab results. 09/04/24 00:13 09/04/24 00:13 Labs: Laboratory Results - last 24 hr 09/04/24 00:13: WBC 6.3, RBC 4.65, Hgb 14.3, Hct 42.9, MCV 92.3, MCH 30.8, MCHC 33.3, RDW Std Deviation 45.7 H, RDW Coeff of Larry 13.5, Plt Count 268, MPV 9.8, Immature Gran % (Auto) 0.500, Neut % (Auto) 72.3 H, Lymph % (Auto) 13.6 L, [place] % (Auto) 10.0, Eos % (Auto) 2.7, Baso % (Auto) 0.9, Absolute Neuts (auto) 4.6, Absolute Lymphs (auto) 0.86, Nucleated RBC % 0, Sodium 139, Potassium 4.1, C hloride 96 L, Carbon Dioxide 30.6, Anion Gap 12, BUN 16, Creatinine 0.45 L, Estim Creat Clear Calc 64.75, Est GFR (MDRD) Non-Af 109, BUN/Creatinine Ratio 36.5 H, Glucose 107 H, Calcium 9.4, Magnesium 2.0 09/05/24 00:13: TSH 0.927 09/05/24 01:00: Urine Color Yellow, Urine Clarity Clear, Urine pH 6.0, Ur Specific [place] 1.015, Urine Protein 100 H, Urine Glucose (UA) Normal, Urine Ketones Negative, Urine Occult Blood 150 H, Urine Nitrite Negative, Urine Bilirubin Negative, Urine Urobilinogen Normal, Ur Leukocyte Esterase 500 H, Urine RBC 0-5 SEEN, Urine WBC 25-50 SEEN, Ur Squamous Epith Cells 0 SEEN, Urine Bacteria 2+, Urine Mucus 0 SEEN 09/05/24 02:48: Lactic Acid < 1.0, Total Creatine Kinase 75, Triglycerides 80, Procalcitonin 0.03 ABG Data ABG results: ABG 09/05/24 09/05/24 09/05/24 02:22 03:30 05:22 Specimen Type ROMINA ROMINA ART Sample Site Not entered Not entered L Radial pH 7.47 H Bicarbonate Actual 33.0 H Total CO2 34 Base Excess 9 H O2 Saturation 96 O2 % 3.0 100.0 40.0 ABG pCO2 45.8 H ABG pO2 78 Stephane Test Positive VBG pH 7.16 L* 7.08 L* VBG pO2 75 H 143 H VBG HCO3 36 H 37 H VBG Total CO2 39 H 41 H VBG O2 Sat (Calc) 89 H 98 H VBG Base Excess 7 H 7 H POC Mix VBG pCO2 Pt Tmp 98.9 H* 123.8 H* Respiration Rate 14 20 O2 Delivery Device Not entered BiPAP Adult Vent Vent Mode AC Tidal Volume 400.0 400.0 POC PEEP 5 5 Crit Call To/Read Back Yes Yes Blood Gas Notified Whom andes Blood Gas Notified Time 02:24:21 Interpretation: Acute respiratory acidosis with acute on chronic metabolic alkalosis Imaging Radiology Impression Hip/Pelvis X-Ray 09/04/24 23:58 IMPRESSION: Acute left femoral neck fracture with lateral impaction resulting in a valgus deformity. No dislocation. Reading Location: [facility] Chest X-Ray 09/05/24 04:17 IMPRESSION: Endotracheal tube 4 cm above the gail. Nasogastric tube with tip and side port crosses the diaphragm and tip extending off the inferior edge of the film. Marked scoliosis with associated deformity of the right more than left hemithorax again noted. Possible area of atelectasis at the medial right base. The lungs otherwise appear clear. Cardiac silhouette again appears large for technique. Reading Location: [facility] Brain CT 09/05/24 23:57 IMPRESSION: No intracranial hemorrhage, mass effect or CT evidence of large vascular territory acute infarct. Small patchy areas of white matter low attenuation statistically would represent chronic small-vessel ischemic change and is not significantly changed in appearance. Reading Location: [facility] Assessment & Plan Assessment/Plan (1) Closed fracture of neck of left femur: PLAN: Plan 79-year-old male with past medical history of restrictive lung disease secondary to polio, hypertension, paroxysmal A-fib on chronic anticoagulation presented to the ED following a fall resulting in a left femoral neck fracture developed type II respiratory failure now requiring intubation mechanical ventilation. #Acute on chronic respiratory failure - He has a history of restrictive lung disease - Continue mechanical ventilation - Critical care consult - Elevate elevate head of the bed by 30 degrees - Bronchopulmonary hygiene - Continue fentanyl sedation - He was recently discharged from TCU following similar admission for respiratory failure #Acute fall #Left femoral neck fracture - Could not undergo surgery initially because of ongoing Eliquis - Holding Eliquis for now - Orthopedic consult regarding further management #A-fib with RVR - Continue sotalol for now - Hold taking Eliquis given the recent fall - Will start on Lovenox 40 mg subcu daily given the risk of VTE due to immobilization and mechanical ventilation #Degenerative scoliosis - Secondary to polio - Monitor as above #Essential hypertension - initially hypertensive at presentation but is now hypotensive following rapid sequence intubation and sedation # Depression - Continue venlafaxine # Central sleep apnea - Mechanical ventilation, #DVT - Lovenox #BPH - Continue home medications
[2024-09-05 06:22] LABS: Magnesium 1.6 mg/dL (1.5-2.2); Phosphorus 4.5 mg/dL (2.7-4.5)
[2024-09-05] MEDS: 0.9% Saline Lock 10 ML Syringe IV (06:22)
[2024-09-05] MEDS: Albuterol 2.5 MG/3 ML VIAL.NEB. INHALATION (07:46)
--- NOTE | 2024-09-05 09:07 | CASEMGMT ---
Insurance review for hospitals In-network with?[employer] insurance if transfer is recommended is as follows: [facility], [facility], [place], [facility], [facility], [facility], , [facility], [facility], and [facility]. Catherine Bridges, Discharge Planning Asst.
[2024-09-05] MEDS: Sotalol Hydrochloride 80 MG Tablet GT ×2 (09:09→21:49)
[2024-09-05] MEDS: Cyanocobalamin 500 MCG Tablet GT (09:09)
[2024-09-05] MEDS: Pantoprazole Sodium 40 MG in 0.9% Normal Saline (100mL MB+) 100 ML 330 MG IV (09:12)
--- NOTE | 2024-09-05 09:45 | CON.PCM.CC_ITS ---
Assessment & Plan Assessment/Plan (1) Closed fracture of neck of left femur: (2) Current use of [facility] anticoagulation: (3) UTI (urinary tract infection): (4) Acute on chronic respiratory failure with hypercapnia: PLAN: Plan RECOMMENDATIONS: 1. Continue assist-control mode mechanical ventilation. Wean FiO2 and PEEP as tolerated. 2. Continue empiric antibiotics, pending culture results. 3. Continue to hold Eliquis. 4. Protonix for GI prophylaxis. 5. Hold on initiating tube feeding. 6. Awaiting transfer to tertiary care facility for orthopedic surgery evaluation. IMPRESSIONS: 1. Acute on chronic combined respiratory failure Unclear precipitating etiology in the emergency department. 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 The patient was ultimately intubated in the emergency department due to hypercarbic encephalopathy. His acid-base status has significantly improved with invasive mechanical ventilatory support. There is low index of suspicion for underlying pulmonary infectious process. However, we will plan to continue antibiotics to cover for possible urinary tract source of infection. Would hold off on proceeding with spontaneous breathing trials, as the patient is currently being transferred for orthopedic surgery evaluation. 2. Metabolic encephalopathy Likely secondary to acute CO2 retention noted in the emergency department, requiring invasive mechanical ventilatory support. CT head was unremarkable. 3. Acute left femoral neck fracture Given that the patient was on Eliquis and need for surgical intervention over the weekend, recommend transfer to tertiary care center, as we do not have orthopedic surgery coverage over the weekend. 4. History of syncope secondary to atrial fibrillation with RVR/hypertension/BPH/sleep apnea Complicates care, management, recovery and prognosis. Continue supportive measures as noted above. TIME: 37 minutes of critical care time, independent of procedures, was spent addressing the patient's acute on chronic combined respiratory failure, metabolic encephalopathy, acute left femoral neck fracture, review of all data and collaboration with the care team. HPI Consult Data Date of Consult: 09/05/24 HPI Narrative Reason for Consultation: Acute on chronic combined respiratory failure HPI Narrative: The patient is a 79-year-old male, with a history as outlined below, who presented to the emergency department via EMS on September 04 after sustaining a mechanical fall at home. History pertinent to his hospitalization was obtained primarily via chart review, as the patient is currently intubated mechanically ventilated. The patient has a known medical history significant for chronic respiratory failure with hypoxemia and hypercapnia in the setting of restrictive lung disease due to excessive kyphoscoliosis and history of poliomyelitis. The patient was last seen in the pulmonary medicine office 3 days ago. The patient had been hospitalized in July 2024 with syncope related to atrial fibrillation with RVR. It should be noted that the patient is maintained on Eliquis on an outpatient basis. On presentation to the emergency department, the patient was noted to be afebrile and hemodynamically stable. Laboratory evaluation revealed a normal white blood cell count. Hemoglobin and platelet count were stable. Initial venous blood gas demonstrated a pH of 7.16 with an elevated pCO2. Chemistry profile was unremarkable. Procalcitonin was normal. TSH was within normal limits. Urinalysis was positive for leukocyte esterase and 2+ urine bacteria. Hip/pelvis x-ray demonstrated an acute left femoral neck fracture. According to emergency department documentation, while in the ED, the patient's mental status began to diminish. His CO2 was elevated on venous blood gas. Therefore, noninvasive positive pressure ventilatory support was initiated. However, the patient apparently was refractory to PAP therapy and was therefore intubated. Due to the fact that the patient was on Eliquis, orthopedic surgery recommended that the patient be transferred, as there would be no orthopedic coverage here over the weekend. Unfortunately, due to a lack of bed availability, the patient was admitted to our intensive care unit while awaiting transfer. [facility] Medical History 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 Wears glasses Cancer Depression Claustrophobia Anxiety Alcohol use Redness of skin Uses crutches Arthritis Bladder disease Back pain History of edema History of diverticulitis Post-polio syndrome Non-smoker BiPAP (biphasic positive airway pressure) dependence History of CHF (congestive heart failure) On home oxygen therapy History of pain when walking History of stress test History of echocardiogram Chronic respiratory failure with hypoxia and hypercapnia On mechanically assisted ventilation Post-poliomyelitis syndrome Acute on chronic respiratory failure with hypoxia and hypercapnia Hypertension Lumbar radicular pain Degenerative scoliosis Scoliosis Segmental dysfunction of thoracic region Home Medications ?Medication ?Instructions ?Recorded ?Last Taken ?Type tamsulosin 0.4 mg capsule 0.4 mg PO BID prostate 02/0208/09/24 History venlafaxine 75 mg capsule,extended 75 mg PO DAILY MOOD 05/31/22 08/09/24 History release 24 hr cyanocobalamin (vitamin B-12) 500 500 mcg PO DAILY sup plement 07/10/24 07/28/24 History mcg tablet losartan 50 mg tablet 50 mg PO QHS BP #0 tabs 11/14 Unknown Rx acetaminophen 500 mg tablet 1,000 mg (2 x 500 mg) PO Q HS #0 08/18/24 Unknown Rx tabs fluticasone propionate 50 1 spray NASAL BID 30 days #1 6 grams 08/18/24 Unknown Rx mcg/actuation nasal spray,suspension omeprazole 40 mg capsule,delayed 40 mg PO QDAY 30 days #30 caps 08/21/24 Unknown Rx release polyethylene glycol 3350 17 8.5 g PO .COMPLEX PRN cons tipation 09/02/24 Unknown History gram/dose oral powder (Miralax) apixaban 5 mg tablet (Eliquis) 5 mg PO BID #180 tabs 0 09/04/24 Unknown Rx sotalol 80 mg tablet 80 mg PO BID #180 tabs 09/04 Unknown Rx Allergy/AdvReac Type Severity Reaction Status Date / Time metronidazole (From Flagyl) AdvReac Nausea/Vom/ Verified 09/04/24 23:42 Diarrhea Family History Father Myocardial infarction Heart disease Mother Shy-Drager syndrome Other CVA (cerebral vascular accident) Surgical History History of selective injection of anesthetic agent around lumbar nerve root Hx of lithotripsy History of cardiac catheterization Hx of cystoscopy H/O adenoidectomy History of uvulectomy Hip fracture, right History of open reduction and internal fixation (ORIF) procedure Right tibial fracture H/O spinal fusion Social History household members: spouse housing: house Smoking Status: Never smoker substance use type: does not use ROS Review of Systems ROS Unobtainable: due to endotracheal tube and due to mental status Physical Exam Const Constitutional Narrative: Intubated, sedated and mechanically ventilated. General Appearance: patient mechanically ventilated HEENT normocephalic and head/scalp atraumatic Mouth: endotracheal tube in place and OG tube in place Eyes PERRL, EOMs intact bilaterally and conjunctivae normal Neck supple General: trachea midline Chest inspection of chest normal Resp Auscultation: diminished lung sounds; Negative for rales, rhonchi or wheezes Cardio regular rate and regular rhythm GI normal to inspection, nondistended, normoactive bowel sounds Extremity no clubbing, cyanosis or edema Skin no rashes or lesions noted Neuro Sensorium / Orientation: sedated on vent Lab / Micro Data 09/04/24 00:13 09/04/24 00:13 Labs: Laboratory Results - last 24 hr 09/04/24 00:13: WBC 6.3, RBC 4.65, Hgb 14.3, Hct 42.9, MCV 92.3, MCH 30.8, MCHC 33.3, RDW Std Deviation 45.7 H, RDW Coeff of Larry 13.5, Plt Count 268, MPV 9.8, Immature Gran % (Auto) 0.500, Neut % (Auto) 72.3 H, Lymph % (Auto) 13.6 L, [place] % (Auto) 10.0, Eos % (Auto) 2.7, Baso % (Auto) 0.9, Absolute Neuts (auto) 4.6, Absolute Lymphs (auto) 0.86, Nucleated RBC % 0, Sodium 139, Potassium 4.1, C hloride 96 L, Carbon Dioxide 30.6, Anion Gap 12, BUN 16, Creatinine 0.45 L, Estim Creat Clear Calc 64.75, Est GFR (MDRD) Non-Af 109, BUN/Creatinine Ratio 36.5 H, Glucose 107 H, Calcium 9.4, Magnesium 2.0 09/05/24 00:13: TSH 0.927 09/05/24 01:00: Urine Color Yellow, Urine Clarity Clear, Urine pH 6.0, Ur Specific [place] 1.015, Urine Protein 100 H, Urine Glucose (UA) Normal, Urine Ketones Negative, Urine Occult Blood 150 H, Urine Nitrite Negative, Urine Bilirubin Negative, Urine Urobilinogen Normal, Ur Leukocyte Esterase 500 H, Urine RBC 0-5 SEEN, Urine WBC 25-50 SEEN, Ur Squamous Epith Cells 0 SEEN, Urine Bacteria 2+, Urine Mucus 0 SEEN 09/05/24 02:48: Lactic Acid < 1.0, Phosphorus 4.5, Magnesium 1.6, Total Creatine Kinase 75, Triglycerides 80, Procalcitonin 0.03 ABG Data ABG results: ABG 09/05/24 09/05/24 09/05/24 02:22 03:30 05:22 Specimen Type ROMINA ROMINA ART Sample Site Not entered Not entered L Radial pH 7.47 H Bicarbonate Actual 33.0 H Total CO2 34 Base Excess 9 H O2 Saturation 96 O2 % 3.0 100.0 40.0 ABG pCO2 45.8 H ABG pO2 78 Stephane Test Positive VBG pH 7.16 L* 7.08 L* VBG pO2 75 H 143 H VBG HCO3 36 H 37 H VBG Total CO2 39 H 41 H VBG O2 Sat (Calc) 89 H 98 H VBG Base Excess 7 H 7 H POC Mix VBG pCO2 Pt Tmp 98.9 H* 123.8 H* Respiration Rate 14 20 O2 Delivery Device Not entered BiPAP Adult Vent Vent Mode AC Tidal Volume 400.0 400.0 POC PEEP 5 5 Crit Call To/Read Back Yes Yes Blood Gas Notified Whom andes Blood Gas Notified Time 02:24:21 Imaging Radiology Impression Hip/Pelvis X-Ray 09/04/24 23:58 IMPRESSION: Acute left femoral neck fracture with lateral impaction resulting in a valgus deformity. No dislocation. Reading Location: [facility] Chest X-Ray 09/05/24 04:17 IMPRESSION: Endotracheal tube 4 cm above the gail. Nasogastric tube with tip and side port crosses the diaphragm and tip extending off the inferior edge of the film. Marked scoliosis with associated deformity of the right more than left hemithorax again noted. Possible area of atelectasis at the medial right base. The lungs otherwise appear clear. Cardiac silhouette again appears large for technique. Reading Location: [facility] Brain CT 09/05/24 23:57 IMPRESSION: No intracranial hemorrhage, mass effect or CT evidence of large vascular territory acute infarct. Small patchy areas of white matter low attenuation statistically would represent chronic small-vessel ischemic change and is not significantly changed in appearance. Reading Location: [facility] Charges/Coding Procedures Hospitalists Procedures: [id number] Critical Care 1st Hr
--- NOTE | 2024-09-05 10:25 | CASEMGMT ---
Readmission note: Index: 08/05-08/09/24. Dx: Acute RF Current: 09/05/24. Dx: Fall From the index admission, the pt was discharged to the [facility] TCU. Per chart review, the pt was in the TCU from 08/09-08/21/24. The pt was discharged home with his with Palliative care and OP PT and ST. The pt re-presented to [facility] ER on 09/05/24 from a fall at home. Per the H&P, the pt had left hip pain after the fall that prevented him from getting up and made it too difficult to ambulate. Upon arrival at the ER, the pt's mental status changed, and his pCO2 on VBG was 98. He was initially placed on a BiPAP but his condition did not improve and required urgent intubation and mechanical ventilation. Per ICU rounds, the patient requires transfer to a tertiary facility for orthopedic surgery evaluation. The pt was previously on Eliquis; therefore, orthopedic surgery recommended that the patient be transferred, as there would be no orthopedic coverage at [facility] over the weekend. The patient was admitted to the intensive care unit while awaiting transfer. See [facility]JANA Alexander note for a list of local in-network hospitals with [employer] M[employer]. Joi GOMEZ RN CM
[2024-09-05] MEDS: Piperacil/Tazobactam 3.375 GM in 0.9% Normal Saline (50mL MB+) 50 ML IV ×3 (11:14→21:48)
[2024-09-05] MEDS: 0.9% Normal Saline (250mL Bag) 250 ML 15 ML IV (11:14)
[2024-09-05] MEDS: Acetaminophen 650 MG/20 ML UDC GT (14:51)
[2024-09-05] MEDS: fentaNYL drip 100 ML 12.5 MCG CONT INF (15:21)
[2024-09-05] MEDS: Propofol 10MG/Ml 1,000 MG/100 ML Bottle 3.7 MG CONT INF (20:43)
[2024-09-05] MEDS: Losartan Potassium 50 MG Tablet GT (21:49)
[2024-09-05] MEDS: Tamsulosin HCl 0.4 MG Capsule PO (21:49)
[2024-09-05] MEDS: 0.9% Normal Saline (1000mL) 1,000 ML 100 ML IV (23:31)
--- NOTE | 2024-09-05 23:57 | CT_ITS ---
PROCEDURE: BRAIN/HEAD WITHOUT CONTRAST 09/05/2024 REASON FOR EXAM: SYNCOPE TECHNIQUE: Head CT without intravenous contrast. Coronal and Sagittal reconstruction series were provided. One or more dose reduction techniques were used (e.g., Automated exposure control, adjustment of the mA and/or kV according to patient size, use of iterative reconstruction technique. RADIATION DOSE SUMMARY: CTDlvol: 44.99 mGy DLP: 849.54 mGycm COMPARISON: 08/05/2024 FINDINGS: No intracranial hemorrhage, mass effect or CT evidence of large vascular territory acute infarct. Ventricles are unchanged in size and remain midline. Small patchy areas of white matter low attenuation statistically would represent chronic small-vessel ischemic change and is not significantly changed in appearance. Visualized paranasal sinuses and mastoids are clear. Left druse again noted. Bilateral parasellar carotid calcification again seen. CT/Brain/Head without Contrast IMPRESSION: No intracranial hemorrhage, mass effect or CT evidence of large vascular territ ory acute infarct. Small patchy areas of white matter low attenuation statistically would represen t chronic small-vessel ischemic change and is not significantly changed in appearance. Reading Location: [id number]
--- NOTE | 2024-09-05 23:57 | EKG12_ITS ---
Test Reason : SYNC Blood Pressure : */* mmHG Vent. Rate : 124 BPM Atrial Rate : 124 BPM P-R Int : 156 ms QRS Dur : 82 ms QT Int : 330 ms P-R-T Axes : 50 -2 69 degrees QTcB Int : 474 ms Sinus tachycardia with frequent and consecutive Premature ventricular complexes Possible Left atrial enlargement Abnormal ECG Confirmed by DENA HERNANDEZ, ALEXIS ([id number]), book editor ОЛЬГА MARQUEZ ([id number]) on 09/08/2024 8:44:01 AM Referred By: Confirmed By: ALEXIS FERNANDES MD
[2024-09-06] VITALS (31 sets, daily range): BP systolic 85–135; BP diastolic 33–86; PULSE 50–69; RESP 16–21; TEMP 36.8–37.7; O2SAT 94–100; BMI 23.8
[2024-09-06] MEDS: fentaNYL drip 100 ML 12.5 MCG CONT INF ×3 (00:43→18:19)
[2024-09-06 04:33] LABS: Allen Test Positive; Base Excess 4 mmol/L (-2 to +2); Bicarbonate 27.6 mmol/L (22-26); Blood Gas Specimen Type ART; Mode AC; O2 Delivery Device Adult Vent; PEEP 5; PO2 62 mmHG (75-100); RR 20; SITE R Radial; SO2 94 % (95-99); Total Carbon Dioxide 29 mmol/L; pCO2 35.5 mmHg (35-45)
--- NOTE | 2024-09-06 05:05 | RAD_ITS ---
PROCEDURE: CHEST 1 VIEW (PORTABLE) 09/06/2024 REASON FOR EXAM: RESPIRATORY FAILURE TECHNIQUE: Frontal view of the chest. COMPARISON: 09/05/2024 FINDINGS: Endotracheal tube and nasogastric tube again noted. Mild increased bilateral perihilar appearing markings may represent vascular congestion. Marked scoliosis again noted. RAD/Chest 1 View (Portable) IMPRESSION: Endotracheal tube and nasogastric tube again noted. Mild increased bilateral p erihilar appearing markings may represent vascular congestion. Reading Location: [id number]
[2024-09-06 05:15] LABS: Absolute Neutrophil Count 10.1 X10^3/uL (2.0-7.7); Basophil# 0.08 X10^3/uL; Basophil% 0.6 % (0-1); Eosinophil# 0.51 X10^3/uL; Eosinophils% 4.1 % (0-5); Hematocrit 31.9 % (40-54); Hemoglobin 10.6 g/dL (13.0-16.5); Lymphocyte % 4.9 % (19-41); Mean Corp Hgb Conc 33.2 g/dL (32-36); Mean Corpuscular Hgb 31.5 pg (27.0-32.0); Mean Corpuscular Volume 94.9 fL (80-94); Mean Platelet Vol. 9.8 fl (6.2-12.0); Monocyte% 8.1 % (0-10); NRBC Flagged by Analyzer 0 % (0-5); Neutrophil # 10.09 X10^3/uL (2.7-7.7); Neutrophil % 81.7 % (47-70); POSITIVE DIFFERENTIAL YES; Platelet Count 168 K/mm3 (150-450); RBC Distribution Width CV 14.6 % (11.6-14.6); RBC Distribution Width SD 50.9 fl (35.1-43.9); Red Blood Count 3.36 M/mm3 (4.6-6.2); White Blood Count 12.4 K/mm3 (4.4-11.0)
[2024-09-06] MEDS: Piperacil/Tazobactam 3.375 GM in 0.9% Normal Saline (50mL MB+) 50 ML IV ×3 (05:27→21:10)
[2024-09-06 06:12] LABS: Anion Gap 10 (5-15); BUN 21 mg/dL (4-19); Calcium,Total 7.3 mg/dL (7.6-11.0); Carbon Dioxide 20.9 mmol/L (21.0-32.0); Chloride 110 mmol/L (98-108); Creatinine, Serum 0.81 mg/dL (0.70-1.20); EST Glomerular Filtration Rate 91 (>60); Estimated Creatinine Clearance 63.95 ml/min (50-250); Glucose 77 mg/dL (70-99); Sodium Level 141 mmol/L (133-145)
[2024-09-06 06:47] LABS: Bedside Glucose 71 mg/dL (74-106)
[2024-09-06] MEDS: KCL 40mEq in 0.9% NS 40 MEQ/1,000 ML IV.SOLN 125 MEQ IV (07:01)
[2024-09-06] MEDS: TITRATION PARAMETER CHANGE 1 EACH IV (07:40)
[2024-09-06] MEDS: Sotalol Hydrochloride 80 MG Tablet GT (08:10)
[2024-09-06] MEDS: Propofol 10MG/Ml 1,000 MG/100 ML Bottle 9.2 MG CONT INF (08:10)
[2024-09-06] MEDS: CHLORHEXIDINE GLUC 2% CLOTH 1 EACH TOWELETTE TOPICAL (08:11)
[2024-09-06] MEDS: Cyanocobalamin 500 MCG Tablet GT (08:11)
[2024-09-06] MEDS: Pantoprazole Sodium 40 MG in 0.9% Normal Saline (100mL MB+) 100 ML 330 MG IV (08:11)
[2024-09-06] MEDS: Chlorhexidine 15 ML PO ×2 (08:12→21:10)
--- NOTE | 2024-09-06 08:46 | PCM.PN.TICU ---
Objective Data Objective Data Vital Signs: Vital Signs Last response Temperature 37.1 C 09/06/24 08:00 Temperature Source Core 09/06/24 08:00 Pulse Rate 60 09/06/24 08:00 Pulse Strength Normal (2+) 09/06/24 08:21 Respiratory Rate 20 H 09/06/24 08:00 Respiratory Effort Mechanically Ventilated 09/06/24 03:21 Respiratory Depth Normal 09/06/24 03:21 Respiratory Pattern Normal 09/06/24 03:21 Blood Pressure 103/33 L 09/06/24 08:00 Blood Pressure Mean 56 09/06/24 08:00 Blood Pressure Source Monitor 09/06/24 08:00 Blood Pressure Position Semi-Fowlers 09/06/24 08:00 Blood Pressure Location Right Arm 09/06/24 08:00 Pulse Ox 95 09/06/24 08:00 Oxygen Delivery Method Mechanical Ventilator 09/06/24 08:00 Oxygen Flow Rate (L/min) 40 09/05/24 05:19 Fraction of Inspired Oxygen (FIO2) 35 09/06/24 08:00 I&O: I&O Last 24 Hours 09/05/24 09/05/24 09/06/24 11:59 23:59 11:59 Intake Total 2340.37 / 4666.75 2318.31 / 4666.75 1435.93 / 1435.93 Output Total 435 / 695 110 / 695 255 / 255 Balance 1905.37 / 3971.75 2208.31 / 3971.75 1180.93 / 1180.93 I&O: Total Stay 09/04/24 23:32 thru 09/06/24 08:35 Intake Total 6094.61 Output Total 800 Balance 5294.61 Current Meds Ordered / Administered: Current meds ordered / Administered Generic Name Dose Route Start Last Admin Trade Name Freq PRN Reason Stop Dose Admin Acetaminophen 650 mg 09/05/24 13:55 09/05/24 14:51 Acetaminophen 650 Mg/20 Ml Udc GT 650 mg Q6H PRN PRN Administration Pain 1-10 or Fever Albuterol Sulfate 2.5 mg 09/05/24 05:29 09/05/24 07:46 Albuterol 2.5 Mg/3 Ml Vial.Neb. INHALATION 2.5 mg Q2H PRN PRN Administration SOB &/OR WHEEZING Chlorhexidine Gluconate 1 each 09/06/24 10:00 09/06/24 08:11 Chlorhexidine Gluc 2% Cloth 1 Each [place]lette TOPICAL 1 each DAILY NIURKA Administration Chlorhexidine Gluconate 15 ml 09/06/24 10:00 09/06/24 08:12 Chlorhexidine 15 Ml PO 15 ml BID NIURKA Administration Cyanocobalamin 500 mcg 09/05/24 10:00 09/06/24 08:11 Cyanocobalamin 500 Mcg Tablet GT 500 mcg DAILY NIURKA Administration Glucagon 1 mg 09/05/24 05:29 Glucagon 1 Mg/Ml Syringe IM X1 PRN HYPOGLYCEMIA Protocol Fentanyl 100 mls @ 2.5 mls/hr 09/05/24 04:30 09/06/24 08:00 CONT INF 125 mcg/hr UD NIURKA 12.5 mls/hr Titration Protocol 25 MCG/HR Dextrose 250 mls @ 0 mls/hr 09/05/24 05:29 Dextrose 10%-Water IV .Q0M PRN HYPOGLYCEMIA Protocol As Directed Sodium Chloride 250 mls @ 15 mls/hr 09/05/24 06:03 09/06/24 01:36 IV 0 mls/hr .[id number] PRN Infusion Saline Flush Sodium Chloride 250 mls @ 15 mls/hr 09/05/24 06:03 IV .[id number] PRN Additional IVPB Infusion Pantoprazole Sodium 40 mg/ 110 mls @ 330 mls/hr 09/05/24 10:00 09/06/24 08:35 Sodium Chloride IV Infused Q24 NIURKA Infusion Piperacillin Sod/Tazobactam 50 mls @ 12.5 mls/hr 09/05/24 09:55 09/06/24 05:27 Sod 3.375 gm/ Sodium Chloride IV 12.5 mls/hr Q8 NIURKA Administration Propofol 1,000 mg in 100 mls @ 3.81 mls/hr 09/05/24 20:20 09/06/24 08:10 Diprivan CONT INF 25 mcg/kg/min .Q12H NIURKA 9.2 mls/hr Administration Protocol 10 MCG/KG/MIN Potassium Chloride/Sodium Chloride 40 meq in 1,000 mls @ 75 mls/hr 09/06/24 06:45 09/06/24 07:42 IV 75 mls/hr .[id number] NIURKA Infusion Losartan Potassium 50 mg 09/05/24 22:00 09/05/24 21:49 Losartan Potassium 50 Mg Tablet GT 50 mg QHS NIURKA Administration Protocol Polyethylene Glycol 8.5 gm 09/05/24 07:43 Polyethylene Glycol 3350 17 Gm Packet GT Q48H PRN constipation Sodium Chloride 10 - 40 ml 09/05/24 06:03 09/05/24 06:22 0.9% Saline Lock 10 Ml Syringe IV 10 ml UD PRN Administration SALINE FLUSH Sotalol HCl 80 mg 09/05/24 10:00 09/06/24 08:10 Sotalol Hydrochloride 80 Mg Tablet GT 80 mg BID [facility] Administration Protocol Tamsulosin HCl 0.4 mg 09/05/24 10:00 09/06/24 07:55 Tamsulosin Hcl 0.4 Mg Capsule PO Not Given BID [facility] Venlafaxine HCl 75 mg 09/05/24 10:00 09/06/24 07:55 Venlafaxine Xr 75 Mg Capsule PO Not Given DAILY [facility] Lab / Micro Data 09/06/24 04:58 09/06/24 04:58 Labs: Laboratory Results - last 24 hr 09/06/24 04:58: WBC 12.4 H, RBC 3.36 L, Hgb 10.6 L, Hct 31.9 L, MCV 94.9 H, MCH 31.5, MCHC 33.2, RDW Std Deviation 50.9 H, RDW Coeff of Larry 14.6, Plt Count 168, MPV 9.8, Immature Gran % (Auto) 0.600, Neut % (Auto) 81.7 H, Lymph % (Auto) 4.9 L, [place] % (Auto) 8.1, Eos % (Auto) 4.1, Baso % (Auto) 0.6, Absolute Neuts (auto) 10.1 H, Absolute Lymphs (auto) 0.60 L, Nucleated RBC % 0, Sodium 141, Potassium 3.0 L, Chloride 110 H, Carbon Dioxide 20.9 L, Anion Gap 10, BUN 21 H, Creatinine 0.81, Estim Creat Clear Calc 63.95, Est GFR (MDRD) Non-Af 91, BUN/Creatinine Ratio 26.0 H, Glucose 77, Calcium 7.3 L 09/06/24 06:29: POC Glucose 71 L Micro: Microbiology 09/05/24 04:30 Sputum, Induced/Lukens Gram Stain - Final ABG Data ABG results: ABG 09/06/24 04:29 Specimen Type ART Sample Site R Radial pH 7.50 H Bicarbonate Actual 27.6 H Total CO2 29 Base Excess 4 H O2 Saturation 94 L O2 % 25.0 ABG pCO2 35.5 ABG pO2 62 L Stephane Test Positive Respiration Rate 20 O2 Delivery Device Adult Vent Vent Mode AC Tidal Volume 400.0 POC PEEP 5 Imaging Radiology Impression Chest X-Ray 09/06/24 05:05 IMPRESSION: Endotracheal tube and nasogastric tube again noted. Mild increased bilateral perihilar appearing markings may represent vascular congestion. Reading Location: [facility] Assessment and Plan . Assessment and plan: Subjective: No acute events o/n. Physical Exam: Gen - NAD, well-developed, intubated HEENT - MMM. ETT in place Resp - Diminished BS. Breathing nonlabored CV - RRR. No m/g/r Abd - Soft, NT, ND Ext - No c/c/e. Skin - No rashes? Neuro - Sedated, intubated I have reviewed the pertinent vital sign, laboratory, and imaging data. 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 CT head without acute pathology # Acute L femoral neck fracture # h/o Afib # h/o syncope # HTN # BPH # LAKISHA PLAN: -Adjusted vent VC 400/16/5/25%. Follow ABG/CXR -Attempting transfer to [facility] for urgent ortho eval, declined at 1 facility d/t not accepting ICU transfers by report. Clarify if can attempt transfer to alternate hospital, or if will need to wait for repeat ortho eval here on Sunday -Deferring extubation attempt pending need for urgent surgery/transfer -Empiric zosyn. f/u Cx -Cont IVF. Monitor for worsening hypotension -Eliquis on hold for possible surgery -Replete electrolytes PRN FEN/GI: OK to start TF Proph DVT/GI: SCDs, protonix Critical Care Time: 50 mins The entirety of this encounter was done via telemedicine using both audio and video. Consent was unable to be obtained for the telemedicine encounter due to the patient's mental status.
--- NOTE | 2024-09-06 09:14 | PCM.PN.HOSP ---
Subjective Subjective Remains intubated and sedated. Attempted to get him transferred again to [facility] however they refused to accept in ICU to ICU transfer Objective Data Objective Data Vital Signs: Vital Signs Temp Pulse Resp BP Pulse Ox O2 Del Method O2 Flow Rate 98.7 F 54 L 20 H 103/33 L 99 Mechanical Ventilator 40 09/06/24 08:00 09/06/24 09:04 09/06/24 09:04 09/06/24 08:00 09/06/24 09:04 09/06/24 08:00 09/05/24 05:19 FiO2 30 09/06/24 09:04 Oxygen Flow Rate (L/min) 40 Oxygen Delivery Method Mechanical Ventilator Weight: 139 lb 15.896 oz Body Mass Index (BMI) 23.8 Intake & Output: Intake and Output for Last 24 Hours 09/05/24 09/06/24 09/07/24 03:59 03:59 03:59 Intake Total 550 / 550 4431.06 / 4445.86 1113.55 / 1113.55 Output Total 695 / 695 105 / 105 Balance 550 / 550 3736.06 / 3750.86 1008.55 / 1008.55 Lab / Micro Data 09/06/24 04:58 09/06/24 04:58 Labs: Laboratory Results - last 24 hr 09/06/24 04:58: WBC 12.4 H, RBC 3.36 L, Hgb 10.6 L, Hct 31.9 L, MCV 94.9 H, MCH 31.5, MCHC 33.2, RDW Std Deviation 50.9 H, RDW Coeff of Larry 14.6, Plt Count 168, MPV 9.8, Immature Gran % (Auto) 0.600, Neut % (Auto) 81.7 H, Lymph % (Auto) 4.9 L, [place] % (Auto) 8.1, Eos % (Auto) 4.1, Baso % (Auto) 0.6, Absolute Neuts (auto) 10.1 H, Absolute Lymphs (auto) 0.60 L, Nucleated RBC % 0, Sodium 141, Potassium 3.0 L, Chloride 110 H, Carbon Dioxide 20.9 L, Anion Gap 10, BUN 21 H, Creatinine 0.81, Estim Creat Clear Calc 63.95, Est GFR (MDRD) Non-Af 91, BUN/Creatinine Ratio 26.0 H, Glucose 77, Calcium 7.3 L 09/06/24 06:29: POC Glucose 71 L Micro: Microbiology 09/05/24 04:30 Sputum, Induced/Lukens Gram Stain - Final ABG Data ABG results: ABG 09/06/24 04:29 Specimen Type ART Sample Site R Radial pH 7.50 H Bicarbonate Actual 27.6 H Total CO2 29 Base Excess 4 H O2 Saturation 94 L O2 % 25.0 ABG pCO2 35.5 ABG pO2 62 L Stephane Test Positive Respiration Rate 20 O2 Delivery Device Adult Vent Vent Mode AC Tidal Volume 400.0 POC PEEP 5 Radiography Diagnostic Testing: Radiology Impression Chest X-Ray 09/06/24 05:05 IMPRESSION: Endotracheal tube and nasogastric tube again noted. Mild increased bilateral perihilar appearing markings may represent vascular congestion. Reading Location: [facility] Physical Exam Const General Appearance: intubated and patient mechanically ventilated HEENT normocephalic Eyes PERRL and conjunctivae normal Neck supple and no JVD Resp normal respiratory effort, no retractions and no use of accessory muscles Auscultation: Negative for crackles, rales, rhonchi or wheezes Cardio regular rate, regular rhythm, S1 normal heart sound, S2 normal heart sound and no murmurs GI soft to palpation and non-distended; Negative for hepatosplenomegaly Extremity no clubbing, cyanosis or edema Skin no rashes or lesions noted Neuro Sensorium / Orientation: sedated on vent Psych Appearance: intubated Assessment & Plan Assessment/Plan (1) Closed fracture of neck of left femur: PLAN: Plan 1. Acute on chronic respiratory failure after a mechanical fall leading to left femoral neck fracture/possible pneumonia ? Had a mechanical fall at home and on arrival to the ER had to be intubated due to rising pCO2 and declining mental status ? Initially he was set to be transferred to [facility] for orthopedic surgery however this was canceled due to him needing to be intubated and sent to the ICU, we attempted to transfer last evening however they refused I do not except ICU ICU transfers ? Continue with critical care management ? 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 Appreciate cement tester assistant assistance ? Continue with empiric Zosyn pending cultures 2. A-fib/essential HTN/HLD ? Resume his home rate control medications ? Will hold his Eliquis as he will need surgery at some point ? Continue with his home blood pressure medications ? Will monitor make adjustments as necessary ? Echo on 07/23/2024 EF of 55% with a PASP of 35 mmHg 3. Anxiety/depression ? Stable/continue Effexor 4. GERD ? Stable ? Continue with PPI DVT: Tracynox Charges/Coding Visit Charges Inpatient E&M: 06460 Subs Hosp L2
--- NOTE | 2024-09-06 14:53 | NURSING ---
O2 sats dropping to 88-89% increased FiO2 to 35% with no chance in oxygen saturations, increased to FiO2 40% oxygen saturations 91%
--- NOTE | 2024-09-06 14:55 | NURSING ---
changed pulse ox to ear probe on left ear with pulse ox reading 98%, FiO2 weaned back to 30% at this time
[2024-09-06] MEDS: Propofol 10MG/Ml 1,000 MG/100 ML Bottle 7.6 MG CONT INF ×2 (17:34→23:55)
[2024-09-06] MEDS: KCL 40mEq in 0.9% NS 40 MEQ/1,000 ML IV.SOLN 75 MEQ IV (18:19)
[2024-09-07] VITALS (38 sets, daily range): BP systolic 77–172; BP diastolic 42–106; PULSE 16–78; RESP 14–18; TEMP 36.3–36.8; O2SAT 56–100; BMI 25.0
[2024-09-07] MEDS: fentaNYL drip 100 ML 15 MCG CONT INF (02:11)
[2024-09-07] MEDS: Piperacil/Tazobactam 3.375 GM in 0.9% Normal Saline (50mL MB+) 50 ML IV ×3 (05:08→22:52)
[2024-09-07] MEDS: 0.9% Saline Lock 10 ML Syringe IV (05:09)
[2024-09-07 05:19] LABS: Absolute Lymphocyte Count 0.59 X10^3/uL (0.83-4.51); Absolute Neutrophil Count 7.6 X10^3/uL (2.0-7.7); Basophil# 0.05 X10^3/uL; Basophil% 0.5 % (0-1); Hematocrit 28.3 % (40-54); Hemoglobin 9.4 g/dL (13.0-16.5); Lymphocyte # 0.59 X10^3/ul (0.83-4.51); Lymphocyte % 5.9 % (19-41); Mean Corp Hgb Conc 33.2 g/dL (32-36); Mean Corpuscular Hgb 31.3 pg (27.0-32.0); Mean Corpuscular Volume 94.3 fL (80-94); Mean Platelet Vol. 10.4 fl (6.2-12.0); Monocyte# 0.87 X10^3/uL; Monocyte% 8.7 % (0-10); NRBC Flagged by Analyzer 0 % (0-5); Neutrophil % 76.5 % (47-70); POSITIVE DIFFERENTIAL YES; Platelet Count 153 K/mm3 (150-450); RBC Distribution Width CV 15.4 % (11.6-14.6)
[2024-09-07 06:07] LABS: Anion Gap 10 (5-15); BUN 24 mg/dL (4-19); BUN/Creat Ratio 36.9 RATIO (10-20); Calcium,Total 7.6 mg/dL (7.6-11.0); Carbon Dioxide 17.3 mmol/L (21.0-32.0); Chloride 115 mmol/L (98-108); Creatinine, Serum 0.66 mg/dL (0.70-1.20); EST Glomerular Filtration Rate 97 (>60); Estimated Creatinine Clearance 64.75 ml/min (50-250); Glucose 55 mg/dL (70-99); Potassium 6.4 mmol/L (3.3-5.1); Sodium Level 143 mmol/L (133-145)
--- NOTE | 2024-09-07 06:16 | EKG12_ITS ---
Test Reason : O Blood Pressure : */* mmHG Vent. Rate : 54 BPM Atrial Rate : 54 BPM P-R Int : 162 ms QRS Dur : 78 ms QT Int : 518 ms P-R-T Axes : 72 28 68 degrees QTcB Int : 491 ms Sinus bradycardia with Premature atrial complexes Low voltage QRS Borderline ECG When compared with ECG of 05-Sep-2024 04:19, MANUAL COMPARISON REQUIRED DATA IS UNCONFIRMED Confirmed by DENA HERNANDEZ, ALEXIS ([id number]), multimedia editor ОЛЬГА MARQUEZ ([id number]) on 09/08/2024 11:51:47 AM Referred By: Confirmed By: ALEXIS FERNANDES MD
[2024-09-07] MEDS: Cyanocobalamin 500 MCG Tablet GT (07:45)
[2024-09-07] MEDS: Chlorhexidine 15 ML PO ×2 (07:45→22:52)
[2024-09-07] MEDS: CHLORHEXIDINE GLUC 2% CLOTH 1 EACH TOWELETTE TOPICAL (07:45)
[2024-09-07 08:00] LABS: Anion Gap 14 (5-15); BUN 25 mg/dL (4-19); BUN/Creat Ratio 33.9 RATIO (10-20); Calcium,Total 8.4 mg/dL (7.6-11.0); Carbon Dioxide 18.5 mmol/L (21.0-32.0); Chloride 109 mmol/L (98-108); Creatinine, Serum 0.74 mg/dL (0.70-1.20); EST Glomerular Filtration Rate 93 (>60); Estimated Creatinine Clearance 64.75 ml/min (50-250); Glucose 55 mg/dL (70-99); Potassium 3.7 mmol/L (3.3-5.1); Sodium Level 142 mmol/L (133-145)
[2024-09-07] MEDS: Pantoprazole Sodium 40 MG in 0.9% Normal Saline (100mL MB+) 100 ML 330 MG IV (08:02)
[2024-09-07 08:04] LABS: CPK Total, Creatine Kinase 84 U/L (24-195); Triglycerides 148 mg/dL
[2024-09-07] MEDS: Dextrose 10%-Water 250 ML 999 ML IV (08:07)
[2024-09-07] MEDS: fentaNYL drip 100 ML 17.5 MCG CONT INF ×3 (08:28→21:48)
[2024-09-07] MEDS: Propofol 10MG/Ml 1,000 MG/100 ML Bottle 7.6 MG CONT INF (08:29)
[2024-09-07] MEDS: 0.9% Normal Saline (1000mL) 1,000 ML 75 ML IV (08:29)
--- NOTE | 2024-09-07 09:13 | PCM.PN.HOSP ---
Subjective Subjective Remains intubated and sedated, urine has cleared up blood he is now having some blood tinged drainage from his NG tube Objective Data Objective Data Vital Signs: Vital Signs Temp Pulse Resp BP Pulse Ox O2 Del Method O2 Flow Rate 97.5 F L 58 L 14 80/46 L 94 Mechanical Ventilator 40 09/07/24 09:00 09/07/24 09:00 09/07/24 09:00 09/07/24 09:00 09/07/24 09:00 09/07/24 09:00 09/05/24 05:19 FiO2 30 09/07/24 09:00 Oxygen Flow Rate (L/min) 40 Oxygen Delivery Method Mechanical Ventilator Weight: 146 lb 2.664 oz Body Mass Index (BMI) 25.0 Intake & Output: Intake and Output for Last 24 Hours 09/06/24 09/07/24 09/08/24 03:59 03:59 03:59 Intake Total 4431.06 / 4445.86 2493.44 / 2505.04 1251.50 / 1251.50 Output Total 695 / 695 630 / 630 400 / 400 Balance 3736.06 / 3750.86 1863.44 / 1875.04 851.50 / 851.50 Lab / Micro Data 09/07/24 05:05 09/07/24 07:20 Labs: Laboratory Results - last 24 hr 09/07/24 05:05: WBC 10.0, RBC 3.00 L, Hgb 9.4 L, Hct 28.3 L, MCV 94.3 H, MCH 31.3, MCHC 33.2, RDW Std Deviation 53.0 H, RDW Coeff of Larry 15.4 H, Plt Count 153, MPV 10.4, Immature Gran % (Auto) 0.400, Neut % (Auto) 76.5 H, Lymph % (Auto) 5.9 L, [place] % (Auto) 8.7, Eos % (Auto) 8.0 H, Baso % (Auto) 0.5, Absolute Neuts (auto) 7.6, Absolute Lymphs (auto) 0.59 L, Nucleated RBC % 0, Sodium 143, Potassium 6.4 H*, Chloride 115 H, Carbon Dioxide 17.3 L, Anion Gap 10, BUN 24 H, Creatinine 0.66 L, Estim Creat Clear Calc 64.75, Est GFR (MDRD) Non-Af 97, BUN/Creatinine Ratio 36.9 H, Glucose 55 L, Calcium 7.6, Total Creatine Kinase 84, Triglycerides 148 09/07/24 07:20: Sodium 142, Potassium 3.7, Chloride 109 H, Carbon Dioxide 18.5 L, Anion Gap 14, BUN 25 H, Creatinine 0.74, Estim Creat Clear Calc 64.75, Est GFR (MDRD) Non-Af 93, BUN/Creatinine Ratio 33.9 H, Glucose 55 L, Calcium 8.4 Micro: Microbiology 09/05/24 01:00 Urine, Clean Catch Urine Culture - Final Staphylococcus epidermidis 09/05/24 03:00 Blood Culture (Wb) - Left Hand Blood Culture - Preliminary No growth in 48 hours. 09/05/24 02:46 Blood Culture (Wb) - Anticubital Left Blood Culture - Preliminary No growth in 48 hours. 09/05/24 04:30 Sputum, Induced/Lukens Gram Stain - Final Physical Exam Const General Appearance: intubated and patient mechanically ventilated HEENT normocephalic Eyes PERRL and conjunctivae normal Neck supple and no JVD Resp normal respiratory effort, no retractions and no use of accessory muscles Auscultation: Negative for crackles, rales, rhonchi or wheezes Cardio regular rate, regular rhythm, S1 normal heart sound, S2 normal heart sound and no murmurs GI soft to palpation and non-distended; Negative for hepatosplenomegaly Extremity no clubbing, cyanosis or edema Skin no rashes or lesions noted Neuro Sensorium / Orientation: sedated on vent Psych Appearance: intubated Assessment & Plan Assessment/Plan (1) Closed fracture of neck of left femur: PLAN: Plan 1. Acute on chronic respiratory failure after a mechanical fall leading to left femoral neck fracture/possible pneumonia ? Had a mechanical fall at home and on arrival to the ER had to be intubated due to rising pCO2 and declining mental status ? Initially he was set to be transferred to [place] for orthopedic surgery however this was canceled due to him needing to be intubated and sent to the ICU, we attempted to transfer last evening however they refused they do not except ICU to ICU transfers ? Continue with critical care management ? 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 Appreciate decision analyst assistance ? Continue with empiric Zosyn pending cultures 2. A-fib/essential HTN/HLD ? Resume his home rate control medications ? Will hold his Eliquis as he will need surgery at some point ? Continue with his home blood pressure medications ? Will monitor make adjustments as necessary ? Echo on 07/23/2024 EF of 55% with a PASP of 35 mmHg 3. Anxiety/depression ? Stable/continue Effexor 4. GERD ? Stable ? Continue with PPI ? Will check an H&H this afternoon as he has some blood-tinged NG tube drainage DVT: Lovenox Charges/Coding Visit Charges Inpatient E&M: 01434 Subs Hosp L2
--- NOTE | 2024-09-07 10:26 | PN.CC_ITS ---
Objective Data Objective Data Vital Signs: Vital Signs Last response 3 Temperature 36.4 C L 09/07/24 09:00 Temperature Source Core 09/07/24 09:00 Pulse Rate 52 L 09/07/24 10:00 Pulse Strength Normal (2+) 09/07/24 07:41 Respiratory Rate 14 09/07/24 10:00 Respiratory Effort Normal, Non-Labored 09/07/24 08:00 Respiratory Depth Normal 09/07/24 08:00 Respiratory Pattern Normal 09/07/24 08:00 Blood Pressure 77/42 L 09/07/24 10:00 Blood Pressure Mean 53 09/07/24 10:00 Blood Pressure Source Monitor 09/07/24 10:00 Blood Pressure Position Semi-Fowlers 09/07/24 10:00 Blood Pressure Location Right Arm 09/07/24 10:00 Pulse Ox 93 09/07/24 10:00 Oxygen Delivery Method Mechanical Ventilator 09/07/24 10:00 Oxygen Flow Rate (L/min) 40 09/05/24 05:19 Fraction of Inspired Oxygen (FIO2) 30 09/07/24 10:00 I&O: I&O Last 24 Hours 3 09/06/24 09/06/24 09/07/24 11:59 23:59 11:59 Intake Total 1567.39 / 2683.84 1103.32 / 2683.84 1446.61 / 1446.61 Output Total 255 / 780 525 / 780 400 / 400 Balance 1312.39 / 1903.84 578.32 / 1903.84 1046.61 / 1046.61 I&O: Total Stay 3 09/04/24 23:32 thru 09/07/24 09:46 Intake Total 8776.00 Output Total 1725 Balance 7051.00 Current Meds Ordered / Administered: Current meds ordered / Administered 3 Generic Name Dose Route Start Last Admin Trade Name Freq PRN Reason Stop Dose Admin Acetaminophen 650 mg 09/05/24 13:55 09/05/24 14:51 Acetaminophen 650 Mg/20 Ml Udc GT 650 mg Q6H PRN PRN Administration Pain 1-10 or Fever Albuterol Sulfate 2.5 mg 09/05/24 05:29 09/05/24 07:46 Albuterol 2.5 Mg/3 Ml Vial.Neb. INHALATION 2.5 mg Q2H PRN PRN Administration SOB &/OR WHEEZING Chlorhexidine Gluconate 1 each 09/06/24 10:00 09/07/24 07:45 Chlorhexidine Gluc 2% Cloth 1 Each [place] TOPICAL 1 each DAILY NIURKA Administration Chlorhexidine Gluconate 15 ml 09/06/24 10:00 09/07/24 07:45 Chlorhexidine 15 Ml PO 15 ml BID NIURKA Administration Cyanocobalamin 500 mcg 09/05/24 10:00 09/07/24 07:45 Cyanocobalamin 500 Mcg Tablet GT 500 mcg DAILY NIURKA Administration Glucagon 1 mg 09/05/24 05:29 Glucagon 1 Mg/Ml Syringe IM X1 PRN HYPOGLYCEMIA Protocol Fentanyl 100 mls @ 2.5 mls/hr 09/05/24 04:30 09/07/24 08:28 CONT INF 175 mcg/hr UD NIURKA 17.5 mls/hr Administration Protocol 25 MCG/HR Dextrose 250 mls @ 0 mls/hr 09/05/24 05:29 09/07/24 08:14 Dextrose 10%-Water IV 0 mls/hr .Q0M PRN Infusion HYPOGLYCEMIA Protocol As Directed Sodium Chloride 250 mls @ 15 mls/hr 09/05/24 06:03 09/07/24 08:29 IV Infused .[id number] PRN Infusion Saline Flush Sodium Chloride 250 mls @ 15 mls/hr 09/05/24 06:03 IV .[id number] PRN Additional IVPB Infusion Pantoprazole Sodium 40 mg/ 110 mls @ 330 mls/hr 09/05/24 10:00 09/07/24 08:29 Sodium Chloride IV Infused Q24 NIURKA Infusion Piperacillin Sod/Tazobactam 50 mls @ 12.5 mls/hr 09/05/24 09:55 09/07/24 09:46 Sod 3.375 gm/ Sodium Chloride IV Infused Q8 NIURKA Infusion Propofol 1,000 mg in 100 mls @ 3.81 mls/hr 09/05/24 20:20 09/07/24 08:29 Diprivan CONT INF 20 mcg/kg/min .Q12H NIURKA 7.6 mls/hr Administration Protocol 10 MCG/KG/MIN Sodium Chloride 1,000 mls @ 75 mls/hr 09/07/24 08:05 09/07/24 08:29 IV 75 mls/hr .[id number] NIURKA Administration Midazolam HCl 50 mg/ Sodium 100 mls @ 2 mls/hr 09/07/24 10:10 Chloride CONT INF .Q50H [facility] Protocol 1 MG/HR Losartan Potassium 50 mg 09/05/24 22:00 09/06/24 21:04 Losartan Potassium 50 Mg Tablet GT Not Given QHS [facility] Protocol Polyethylene Glycol 8.5 gm 09/05/24 07:43 Polyethylene Glycol 3350 17 Gm Packet GT Q48H PRN constipation Sodium Chloride 10 - 40 ml 09/05/24 06:03 09/07/24 05:09 0.9% Saline Lock 10 Ml Syringe IV 10 ml UD PRN Administration SALINE FLUSH Sotalol HCl 80 mg 09/05/24 10:00 09/06/24 21:04 Sotalol Hydrochloride 80 Mg Tablet GT Not Given BID [facility] Protocol Tamsulosin HCl 0.4 mg 09/05/24 10:00 09/07/24 07:45 Tamsulosin Hcl 0.4 Mg Capsule PO Not Given BID [facility] Venlafaxine HCl 75 mg 09/05/24 10:00 09/07/24 07:45 Venlafaxine Xr 75 Mg Capsule PO Not Given DAILY [facility] Lab / Micro Data 09/07/24 05:05 09/07/24 07:20 Labs: Laboratory Results - last 24 hr 09/07/24 05:05: WBC 10.0, RBC 3.00 L, Hgb 9.4 L, Hct 28.3 L, MCV 94.3 H, MCH 31.3, MCHC 33.2, RDW Std Deviation 53.0 H, RDW Coeff of Larry 15.4 H, Plt Count 153, MPV 10.4, Immature Gran % (Auto) 0.400, Neut % (Auto) 76.5 H, Lymph % (Auto) 5.9 L, [place] % (Auto) 8.7, Eos % (Auto) 8.0 H, Baso % (Auto) 0.5, Absolute Neuts (auto) 7.6, Absolute Lymphs (auto) 0.59 L, Nucleated RBC % 0, Sodium 143, Potassium 6.4 H*, Chloride 115 H, Carbon Dioxide 17.3 L, Anion Gap 10, BUN 24 H, Creatinine 0.66 L, Estim Creat Clear Calc 64.75, Est GFR (MDRD) Non-Af 97, B UN/Creatinine Ratio 36.9 H, Glucose 55 L, Calcium 7.6, Total Creatine Kinase 84, Triglycerides 148 09/07/24 07:20: Sodium 142, Potassium 3.7, Chloride 109 H, Carbon Dioxide 18.5 L , Anion Gap 14, BUN 25 H, Creatinine 0.74, Estim Creat Clear Calc 64.75, Est GFR (MDRD) Non-Af 93, BUN/Creatinine Ratio 33.9 H, Glucose 55 L, Calcium 8.4 Micro: Microbiology 09/05/24 01:00 Urine, Clean Catch Urine Culture - Final Staphylococcus epidermidis 09/05/24 03:00 Blood Culture (Wb) - Left Hand Blood Culture - Preliminary No growth in 48 hours. 09/05/24 02:46 Blood Culture (Wb) - Anticubital Left Blood Culture - Preliminary No growth in 48 hours. Assessment and Plan . Assessment and plan: Subjective: Intubted, sedated. On-going bloody output from NGT, overnight ~300cc. Hematuria has cleared/resolved from yesterday Remains bradycardic and BP lower this AM. Prop @ 20 Fent @ 175 NS @ 75 16 400 5 30 Physical Exam: Gen - NAD, well-developed, +MV HEENT - MMM. ETT in place Resp - Diminished BS. Breathing nonlabored CV - Bradycardia; +S1/S2. No m/g/r Abd - Soft, NT, ND Ext - No c/c/e. Skin - No rashes? Neuro - Sedated, intubated I have reviewed the pertinent vital sign, laboratory, and imaging data. 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 CT head without acute pathology # Acute L femoral neck fracture # h/o Afib # h/o syncope # HTN # BPH # LAKISHA PLAN: -Cont MV; settings reviewed/adjusted; sedation/analgesia strategy adjusted due to softer BP today; F/U AM CXR + ABG; deferring extubation attempt pending need for urgent surgery/transfer -Attempted transfer to [facility] for urgent ortho eval but declined at 1 facility d/t not accepting ICU transfers by report; now awaiting ortho eval here tomorrow -Worsening hypotension & on-going bradycardia so hold losartan + sotalol this AM; PRN NEpi to keep MAP > 65; cont empiric Zosyn; adding vanc empirically given GPC growth in UCx; cont to monitor temp curve/WBC/band % & F/U final Cx -Cont IVF but add D5 given mild hypoglycemia; strict I/Os; replete electrolytes PRN -Eliquis on hold for possible surgery; also with GIB -Start PPI gtt; cont NGT to LIWS; would ask GI to evaluate for further management NPO PPI gtt Guarded prognosis Critical Care Time: 50 min The entirety of this encounter was done via telemedicine using both audio and video. Consent was unable to be obtained for the telemedicine encounter due to the patient's mental status.
--- NOTE | 2024-09-07 10:45 | RAD_ITS ---
EXAM: XR Chest, 1 View CLINICAL INDICATION: RESP FAILURE VENT TECHNIQUE: Frontal view of the chest. COMPARISON: XR Chest dated 09/06/2024 FINDINGS: LUNGS AND PLEURAL SPACES: Partial consolidation of the right lung m[place], likely atelectasis and/or pneumonia. No pneumothorax. HEART: Unremarkable. No cardiomegaly. MEDIASTINUM: Unremarkable. Normal mediastinal contour. BONES/JOINTS: Unremarkable. No acute fracture. TUBES, LINES AND DEVICES: The endotracheal tube (ETT) is in satisfactory position. Enteric tube tip cannot be seen but is below the diaphragm. RAD/Chest 1 View (Portable) IMPRESSION: Partial consolidation of the right lung m[place]o, likely atelectasis and/or pneum onia. Reading Location: [id number]
[2024-09-07] MEDS: Midazolam 50 MG in 0.9% Normal Saline (100mL Bag) 90 ML CONT INF (10:49)
[2024-09-07] MEDS: Norepinephrine 8 MG in 0.9% Normal Saline (250mL Bag) 242 ML 9.4 MG CONT INF (11:00)
[2024-09-07 11:08] LABS: Allen Test Positive; Base Excess -2 mmol/L (-2 to +2); Bicarbonate 23.3 mmol/L (22-26); Blood Gas Specimen Type ART; Mode AC; O2 Delivery Device Adult Vent; PEEP 5; PO2 49 mmHG (75-100); RR 16; SITE L Radial; SO2 84 % (95-99); Total Carbon Dioxide 24 mmol/L; pCO2 38.5 mmHg (35-45); pH 7.39 (7.35-7.45)
[2024-09-07] MEDS: Dextrose 5%/0.9% NaCl 1,000 ML 75 ML IV ×2 (11:10→23:58)
[2024-09-07] MEDS: Vancomycin IV 1,000 MG/200 ML BAG 200 MG IV (11:12)
--- NOTE | 2024-09-07 12:38 | PHA.PHARE_ITS ---
Consult Antibiotic Management Pharmacy has been consulted to manage selected antibiotic: Vancomycin Type of Intervention Type of Consult: New start Labs Labs: Sodium 142 mmol/L (133-145) 09/07/24 07:20 Potassium 3.7 mmol/L (3.3-5.1) 09/07/24 07:20 Chloride 109 mmol/L (98-108) H 09/07/24 07:20 Carbon Dioxide 18.5 mmol/L (21.0-32.0) L 09/07/24 07:20 Anion Gap 14 (5-15) 09/07/24 07:20 BUN 25 mg/dL (4-19) H 09/07/24 07:20 Creatinine 0.74 mg/dL (0.70-1.20) 09/07/24 07:20 Est GFR (MDRD) Non-Af 93 (>60) 09/07/24 07:20 BUN/Creatinine Ratio 33.9 RATIO (10-20) H 09/07/24 07:20 Glucose 55 mg/dL (70-99) L 09/07/24 07:20 Microbiology Microbiology: Microbiology 09/05/24 01:00 Urine, Clean Catch Urine Culture - Final Staphylococcus epidermidis 09/05/24 03:00 Blood Culture (Wb) - Left Hand Blood Culture - Preliminary No growth in 48 hours. 09/05/24 02:46 Blood Culture (Wb) - Anticubital Left Blood Culture - Preliminary No growth in 48 hours. 09/05/24 04:30 Sputum, Induced/Lukens Gram Stain - Final Dosing Weight Weight used for dosin.3 kg Estimated Creatinine Clearance Estimated Creatinine Clearance: 73 ML/MIN Goal Trough Goal Trough: 10-15 mcg/mL Pharmacy Plan for Drug Dosing Pharmacy Plan for Drug Dosing: Give standard initial dose of 1000mg IV x1, then continue with 750mg q12h per [facility] dosing protocol. Check a trough before the 4th overall dose. Pharmacy Service will continue to monitor and adjust dosing as required. Follow-Up Labs Follow-Up Labs: Trough: Vancomycin Date/Time Labs Ordered Labs to be done on [date and time ordered]: 09/08/24 22:30
[2024-09-07] MEDS: 0.9% Normal Saline (250mL Bag) 250 ML 15 ML IV (12:43)
[2024-09-07 12:46] LABS: Bedside Glucose 71 mg/dL (74-106)
[2024-09-07] MEDS: Pantoprazole Sodium 80 MG in 0.9% Normal Saline (100mL Bag) 80 ML 10 MG CONT INF ×2 (14:35→23:25)
[2024-09-07 14:44] LABS: Hematocrit 31.7 % (40-54); Hemoglobin 10.4 g/dL (13.0-16.5)
[2024-09-07] MEDS: Vancomycin HCl 750 MG in 0.9% Normal Saline (250mL Bag) 250 ML 250 MG IV (21:46)
[2024-09-08] VITALS (35 sets, daily range): BP systolic 106–136; BP diastolic 53–79; PULSE 66–115; RESP 16–24; TEMP 36.9–37.1; O2SAT 90–98; BMI 26.2
[2024-09-08 01:44] LABS: Bedside Glucose 77 mg/dL (74-106)
[2024-09-08 03:53] LABS: Anion Gap 10 (5-15); BUN 18 mg/dL (4-19); BUN/Creat Ratio 31.7 RATIO (10-20); Calcium,Total 8.1 mg/dL (7.6-11.0); Carbon Dioxide 20.7 mmol/L (21.0-32.0); Chloride 112 mmol/L (98-108); Creatinine, Serum 0.56 mg/dL (0.70-1.20); EST Glomerular Filtration Rate 102 (>60); Estimated Creatinine Clearance 64.75 ml/min (50-250); Glucose 101 mg/dL (70-99); Potassium 3.1 mmol/L (3.3-5.1); Sodium Level 143 mmol/L (133-145)
[2024-09-08] MEDS: fentaNYL drip 100 ML 17.5 MCG CONT INF ×3 (03:59→18:03)
[2024-09-08 04:14] LABS: Absolute Lymphocyte Count 0.61 X10^3/uL (0.83-4.51); Absolute Neutrophil Count 5.6 X10^3/uL (2.0-7.7); Basophil# 0.05 X10^3/uL; Basophil% 0.6 % (0-1); Eosinophil# 0.72 X10^3/uL; Eosinophils% 9.3 % (0-5); Hematocrit 30.7 % (40-54); Hemoglobin 10.2 g/dL (13.0-16.5); Lymphocyte # 0.61 X10^3/ul (0.83-4.51); Lymphocyte % 7.9 % (19-41); Mean Corp Hgb Conc 33.2 g/dL (32-36); Mean Corpuscular Hgb 30.8 pg (27.0-32.0); Mean Corpuscular Volume 92.7 fL (80-94); Mean Platelet Vol. 10.4 fl (6.2-12.0); Monocyte# 0.79 X10^3/uL; Monocyte% 10.2 % (0-10); NRBC Flagged by Analyzer 0 % (0-5); Neutrophil # 5.56 X10^3/uL (2.7-7.7); Neutrophil % 71.5 % (47-70); Platelet Count 189 K/mm3 (150-450); RBC Distribution Width SD 51.4 fl (35.1-43.9); Red Blood Count 3.31 M/mm3 (4.6-6.2); White Blood Count 7.8 K/mm3 (4.4-11.0)
[2024-09-08] MEDS: 0.9% Saline Lock 10 ML Syringe IV (04:25)
[2024-09-08 05:36] LABS: Allen Test Positive; Base Excess -1 mmol/L (-2 to +2); Bicarbonate 22.6 mmol/L (22-26); Blood Gas Specimen Type ART; Mode AC; O2 Delivery Device Adult Vent; PEEP 5; PO2 136 mmHG (75-100); RR 16; SITE R Radial; SO2 99 % (95-99); Total Carbon Dioxide 24 mmol/L; pCO2 29.4 mmHg (35-45); pH 7.49 (7.35-7.45)
--- NOTE | 2024-09-08 05:45 | RAD_ITS ---
PROCEDURE: CHEST 1 VIEW (PORTABLE) 09/08/2024 REASON FOR EXAM: RESP FAILURE VENT TECHNIQUE: Frontal view of the chest. 2 frontal views COMPARISON: 09/07/2024 FINDINGS: A right PICC is now seen with tip at the area of the expected location of the superior cavoatrial junction. Endotracheal tube again noted appears satisfactory position. Nasogastric tube crosses the diaphragm and extends off the inferior edge of the film. Marked S shaped thoracolumbar partially imaged scoliosis with deformity of the thorax again noted. No significant interval change in appearance of the lungs with appearance of increased perihilar markings possible vascular congestion not excluded. Cardiac silhouette not significantly changed in appearance. RAD/Chest 1 View (Portable) IMPRESSION: A right PICC is now seen with tip at the area of the expected location of the s uperior cavoatrial junction. Endotracheal tube again noted appears satisfactory position. Nasogastric tube crosses the diaphra gm and extends off the inferior edge of the film. Marked S shaped thoracolumbar partially imaged scoliosis with deformity of the thorax again noted. No significant interval change in appearance of the lungs with appearance of in creased perihilar markings possible vascular congestion not excluded. Reading Location: [id number]
[2024-09-08] MEDS: Piperacil/Tazobactam 3.375 GM in 0.9% Normal Saline (50mL MB+) 50 ML IV ×3 (05:50→20:55)
[2024-09-08 06:13] LABS: Bedside Glucose 99 mg/dL (74-106)
[2024-09-08 07:45] LABS: Magnesium 1.5 mg/dL (1.5-2.2); Phosphorus 2.9 mg/dL (2.7-4.5)
--- NOTE | 2024-09-08 08:58 | PCM.PN.HOSP ---
Subjective Subjective Intubated and sedated. In the present attempting to contact orthopedic surgery to see if they can do the surgical intervention while he remains intubated as he he will likely need to be reintubated after surgery due to his poor respiratory reserve Objective Data Objective Data Vital Signs: Vital Signs Temp Pulse Resp BP Pulse Ox O2 Del Method O2 Flow Rate 98.6 F 77 24 H 129/66 H 96 Mechanical Ventilator 40 09/08/24 04:00 09/08/24 08:00 09/08/24 08:00 09/08/24 08:00 09/08/24 08:00 09/08/24 08:08 09/05/24 05:19 FiO2 30 09/08/24 08:00 Oxygen Flow Rate (L/min) 40 Oxygen Delivery Method Mechanical Ventilator Weight: 153 lb 7.068 oz Body Mass Index (BMI) 26.2 Intake & Output: Intake and Output for Last 24 Hours 09/07/24 09/08/24 09/09/24 03:59 03:59 03:59 Intake Total 2493.44 / 2505.04 3591.42 / 3592.71 65.79 / 65.79 Output Total 630 / 630 650 / 650 300 / 300 Balance 1863.44 / 1875.04 2941.42 / 2942.71 -234.21 / -234.21 Lab / Micro Data 09/08/24 03:25 09/08/24 03:25 Labs: Laboratory Results - last 24 hr 09/07/24 08:18: POC Glucose 71 L 09/07/24 14:33: Hgb 10.4 L, Hct 31.7 L 09/07/24 23:58: POC Glucose 77 09/08/24 03:25: WBC 7.8, RBC 3.31 L, Hgb 10.2 L, Hct 30.7 L, MCV 92.7, MCH 30.8, MCHC 33.2, RDW Std Deviation 51.4 H, RDW Coeff of Larry 15.0 H, Plt Count 189, MPV 10.4, Immature Gran % (Auto) 0.500, Neut % (Auto) 71.5 H, Lymph % (Auto) 7.9 L, [place] % (Auto) 10.2 H, Eos % (Auto) 9.3 H, Baso % (Auto) 0.6, Absolute Neuts (auto) 5.6, Absolute Lymphs (auto) 0.61 L, Nucleated RBC % 0, Sodium 143, Potassium 3.1 L, Chloride 112 H, Carbon Dioxide 20.7 L, Anion Gap 10, BUN 18, Creatinine 0.56 L, Estim Creat Clear Calc 64.75, Est GFR (MDRD) Non-Af 102, BUN/Creatinine Ratio 31.7 H, Glucose 101 H, Calcium 8.1, Phosphorus 2.9, Magnesium 1.5 09/08/24 05:52: POC Glucose 99 Micro: Microbiology 09/05/24 04:30 Sputum, Induced/Lukens Gram Stain - Final 09/05/24 04:30 Sputum, Induced/Lukens Respiratory Culture - Final Mixed normal respiratory rogelio. No Streptococcus pneumoniae, beta-hemolytic Streptococcus or Staphylococcus aureus isolated. 09/05/24 01:00 Urine, Clean Catch Urine Culture - Final Staphylococcus epidermidis 09/05/24 03:00 Blood Culture (Wb) - Left Hand Blood Culture - Preliminary No growth in 48 hours. 09/05/24 02:46 Blood Culture (Wb) - Anticubital Left Blood Culture - Preliminary No growth in 48 hours. ABG Data ABG results: ABG 09/07/24 09/08/24 11:04 05:30 Specimen Type ART ART Sample Site L Radial R Radial pH 7.39 7.49 H Bicarbonate Actual 23.3 22.6 Total CO2 24 24 Base Excess -2 -1 O2 Saturation 84 L 99 O2 % 30.0 40.0 ABG pCO2 38.5 29.4 L ABG pO2 49 L 136 H Stephane Test Positive Positive Respiration Rate 16 16 O2 Delivery Device Adult Vent Adult Vent Vent Mode AC AC Tidal Volume 400.0 400.0 POC PEEP 5 5 Radiography Diagnostic Testing: Radiology Impression Chest X-Ray 09/07/24 10:45 IMPRESSION: Partial consolidation of the right lung m[place], likely atelectasis and/or pneumonia. Reading Location: [id number] Chest X-Ray 09/08/24 05:45 IMPRESSION: A right PICC is now seen with tip at the area of the expected location of the superior cavoatrial junction. Endotracheal tube again noted appears satisfactory position. Nasogastric tube crosses the diaphragm and extends off the inferior edge of the film. Marked S shaped thoracolumbar partially imaged scoliosis with deformity of the thorax again noted. No significant interval change in appearance of the lungs with appearance of increased perihilar markings possible vascular congestion not excluded. Reading Location: [facility] Physical Exam Const General Appearance: intubated and patient mechanically ventilated HEENT normocephalic Eyes PERRL and conjunctivae normal Neck supple and no JVD Resp normal respiratory effort, no retractions and no use of accessory muscles Auscultation: Negative for crackles, rales, rhonchi or wheezes Cardio regular rate, regular rhythm, S1 normal heart sound, S2 normal heart sound and no murmurs GI soft to palpation and non-distended; Negative for hepatosplenomegaly Extremity no clubbing, cyanosis or edema Skin no rashes or lesions noted Neuro Sensorium / Orientation: sedated on vent Psych Appearance: intubated Assessment & Plan Assessment/Plan (1) Closed fracture of neck of left femur: PLAN: Plan 1. Acute on chronic respiratory failure after a mechanical fall leading to left femoral neck fracture/possible pneumonia ? Had a mechanical fall at home and on arrival to the ER had to be intubated due to rising pCO2 and declining mental status ? Initially he was set to be transferred to [place] for orthopedic surgery however this was canceled due to him needing to be intubated and sent to the ICU, we attempted to transfer last evening however they refused they do not except ICU to ICU transfers ? Continue with critical care management ? 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 Appreciate assembler metal furniture assistance ? Continue with empiric Zosyn, ICU added vancomycin ? Will attempt to contact orthopedic surgery to see if they would be willing to operate on him while he remains intubated as he will likely need to remain intubated after any surgical intervention given his pulmonary reserve 2. A-fib/essential HTN/HLD ? Resume his home rate control medications ? Will hold his Eliquis as he will need surgery at some point ? Continue with his home blood pressure medications ? Will monitor make adjustments as necessary ? Echo on 07/23/2024 EF of 55% with a PASP of 35 mmHg 3. Anxiety/depression ? Stable ? Continue Effexor 4. GERD ? Stable ? Continue with PPI ? H&H is stabilized, he does not have a significant GI bleed DVT: Lupe Charges/Coding Visit Charges Inpatient E&M: 93859 Subs Hosp L2
[2024-09-08] MEDS: Albuterol 2.5 MG/3 ML VIAL.NEB. INHALATION (09:14)
[2024-09-08] MEDS: Chlorhexidine 15 ML PO ×2 (10:05→20:55)
[2024-09-08] MEDS: Pantoprazole Sodium 80 MG in 0.9% Normal Saline (100mL Bag) 80 ML 10 MG CONT INF ×2 (10:05→20:50)
[2024-09-08] MEDS: Cyanocobalamin 500 MCG Tablet GT (10:09)
[2024-09-08] MEDS: CHLORHEXIDINE GLUC 2% CLOTH 1 EACH TOWELETTE TOPICAL (10:09)
[2024-09-08] MEDS: Vital AF 1.2 Cal Liquid 1,000 ML 20 ML GT (10:12)
--- NOTE | 2024-09-08 11:10 | PN.CC_ITS ---
Objective Data Objective Data Vital Signs: Vital Signs Last response 3 Temperature 37.0 C 09/08/24 04:00 Temperature Source Core 09/08/24 04:00 Pulse Rate 77 09/08/24 10:57 Pulse Strength Normal (2+) 09/07/24 07:41 Respiratory Rate 16 09/08/24 10:57 Respiratory Effort Mechanically Ventilated 09/08/24 08:08 Respiratory Depth Normal 09/08/24 08:08 Respiratory Pattern Normal 09/08/24 10:57 Blood Pressure 129/66 H 09/08/24 08:00 Blood Pressure Mean 87 09/08/24 08:00 Blood Pressure Source Monitor 09/08/24 08:00 Blood Pressure Position Semi-Fowlers 09/08/24 08:00 Blood Pressure Location Left Arm 09/08/24 08:00 Pulse Ox 93 09/08/24 10:57 Oxygen Delivery Method Mechanical Ventilator 09/08/24 08:08 Oxygen Flow Rate (L/min) 40 09/05/24 05:19 Fraction of Inspired Oxygen (FIO2) 40 09/08/24 10:57 I&O: I&O Last 24 Hours 3 09/07/24 09/07/24 09/08/24 11:59 23:59 11:59 Intake Total 1713.53 / 3617.03 1884.00 / 3617.03 414.00 / 414.00 Output Total 550 / 650 100 / 650 300 / 300 Balance 1163.53 / 2967.03 1784.00 / 2967.03 114.00 / 114.00 I&O: Total Stay 3 09/04/24 23:32 thru 09/08/24 10:11 Intake Total 71848.92 Output Total 2275 Balance 9065.92 Current Meds Ordered / Administered: Current meds ordered / Administered 3 Generic Name Dose Route Start Last Admin Trade Name Freq PRN Reason Stop Dose Admin Acetaminophen 650 mg 09/05/24 13:55 09/05/24 14:51 Acetaminophen 650 Mg/20 Ml Udc GT 650 mg Q6H PRN PRN Administration Pain 1-10 or Fever Acetylcysteine 800 mg 09/08/24 11:15 Acetylcysteine 800 Mg/4 Ml Vial.Neb. INHALATION Q12 NIURKA Albuterol Sulfate 2.5 mg 09/05/24 05:29 09/08/24 09:14 Albuterol 2.5 Mg/3 Ml Vial.Neb. INHALATION 2.5 mg Q2H PRN PRN Administration SOB &/OR WHEEZING Albuterol/Ipratropium 3 ml 09/08/24 11:15 Ipratropium/Albuterol Sulfate 3 Ml Ampul.Neb INHALATION Q12 NIURKA Chlorhexidine Gluconate 1 each 09/06/24 10:00 09/08/24 10:09 Chlorhexidine Gluc 2% Cloth 1 Each [place] TOPICAL 1 each DAILY NIURKA Administration Chlorhexidine Gluconate 15 ml 09/06/24 10:00 09/08/24 10:05 Chlorhexidine 15 Ml PO 15 ml BID NIURKA Administration Cyanocobalamin 500 mcg 09/05/24 10:00 09/08/24 10:09 Cyanocobalamin 500 Mcg Tablet GT 500 mcg DAILY NIURKA Administration Furosemide 40 mg 09/08/24 14:00 Furosemide 40 Mg/4 Ml Vial IV 09/08/24 14:01 X1 ONE Protocol Glucagon 1 mg 09/05/24 05:29 Glucagon 1 Mg/Ml Syringe IM X1 PRN HYPOGLYCEMIA Protocol Fentanyl 100 mls @ 2.5 mls/hr 09/05/24 04:30 09/08/24 10:07 CONT INF 175 mcg/hr UD NIURKA 17.5 mls/hr Administration Protocol 25 MCG/HR Dextrose 250 mls @ 0 mls/hr 09/05/24 05:29 09/07/24 16:24 Dextrose 10%-Water IV Infused .Q0M PRN Infusion HYPOGLYCEMIA Protocol As Directed Sodium Chloride 250 mls @ 15 mls/hr 09/05/24 06:03 09/07/24 19:30 IV 0 mls/hr .[id number] PRN Infusion Saline Flush Sodium Chloride 250 mls @ 15 mls/hr 09/05/24 06:03 IV .[id number] PRN Additional IVPB Infusion Piperacillin Sod/Tazobactam 50 mls @ 12.5 mls/hr 09/05/24 09:55 09/08/24 10:00 Sod 3.375 gm/ Sodium Chloride IV Infused Q8 NIURKA Infusion Midazolam HCl 50 mg/ Sodium 100 mls @ 2 mls/hr 09/07/24 10:10 09/08/24 10:00 Chloride CONT INF 2 mg/hr .Q50H NIURKA 4 mls/hr Titration Protocol 1 MG/HR Norepinephrine Bitartrate 8 mg 250 mls @ 9.375 mls/hr 09/07/24 10:35 09/07/24 17:00 / Sodium Chloride CONT INF 0 mcg/min .[id number] NIURKA 0 mls/hr Titration Protocol 5 MCG/MIN Pantoprazole Sodium 80 mg/ 100 mls @ 10 mls/hr 09/07/24 11:30 09/08/24 10:05 Sodium Chloride CONT INF 10 mls/hr Q10H NIURKA Administration Vancomycin IV-PHARMACY TO DOSE 500 mls @ 250 mls/hr 09/07/24 10:33 1 each/ Sodium Chloride IV X1 PRN Rx to Dose Protocol Dextrose/Sodium Chloride 1,000 mls @ 75 mls/hr 09/07/24 11:00 09/07/24 23:58 Dextrose 5%/0.9% Nacl IV 75 mls/hr .[id number] NIURKA Administration Vancomycin HCl 750 mg/ Sodium 265 mls @ 250 mls/hr 09/07/24 23:00 09/07/24 22:50 Chloride IV Infused Q12H NIURKA Infusion Enteral Nutritional Formula 1,000 mls @ 20 mls/hr 09/08/24 09:55 09/08/24 10:12 Vital Af 1.2 Ryan Liquid GT 20 mls/hr .Q48H NIURKA Administration Potassium Chloride 10 meq in 100 mls @ 100 mls/hr 09/08/24 11:15 IV BOLUS 09/08/24 15:14 Q1H NIURKA Losartan Potassium 50 mg 09/05/24 22:00 09/06/24 21:04 Losartan Potassium 50 Mg Tablet GT Not Given QHS NIURKA Protocol Polyethylene Glycol 8.5 gm 09/05/24 07:43 Polyethylene Glycol 3350 17 Gm Packet GT Q48H PRN constipation Sodium Chloride 10 - 40 ml 09/05/24 06:03 09/08/24 04:25 0.9% Saline Lock 10 Ml Syringe IV 20 ml UD PRN Administration SALINE FLUSH Sotalol HCl 80 mg 09/05/24 10:00 09/07/24 10:44 Sotalol Hydrochloride 80 Mg Tablet GT Not Given BID NIURKA Protocol Tamsulosin HCl 0.4 mg 09/05/24 10:00 09/08/24 10:00 Tamsulosin Hcl 0.4 Mg Capsule PO Not Given BID NIURKA Vancomycin Protocol 1 lab 09/08/24 21:30 Vancomycin Trough/Random Due 09/08/24 23:30 DAILY [facility] Venlafaxine HCl 75 mg 09/05/24 10:00 09/08/24 10:09 Venlafaxine Xr 75 Mg Capsule PO Not Given DAILY [facility] Lab / Micro Data 09/08/24 03:25 09/08/24 03:25 Labs: Laboratory Results - last 24 hr 09/07/24 08:18: POC Glucose 71 L 09/07/24 14:33: Hgb 10.4 L, Hct 31.7 L 09/07/24 23:58: POC Glucose 77 09/08/24 03:25: WBC 7.8, RBC 3.31 L, Hgb 10.2 L, Hct 30.7 L, MCV 92.7, MCH 30.8, MCHC 33.2, RDW Std Deviation 51.4 H, RDW Coeff of Larry 15.0 H, Plt Count 189, MPV 10.4, Immature Gran % (Auto) 0.500, Neut % (Auto) 71.5 H, Lymph % (Auto) 7.9 L, [place] % (Auto) 10.2 H, Eos % (Auto) 9.3 H, Baso % (Auto) 0.6, Absolute Neuts (auto) 5.6, Absolute Lymphs (auto) 0.61 L, Nucleated RBC % 0, Sodium 143, P otassium 3.1 L, Chloride 112 H, Carbon Dioxide 20.7 L, Anion Gap 10, BUN 18, C reatinine 0.56 L, Estim Creat Clear Calc 64.75, Est GFR (MDRD) Non-Af 102, B UN/Creatinine Ratio 31.7 H, Glucose 101 H, Calcium 8.1, Phosphorus 2.9, Magnesium 1.5 09/08/24 05:52: POC Glucose 99 Micro: Microbiology 09/05/24 04:30 Sputum, Induced/Lukens Gram Stain - Final 09/05/24 04:30 Sputum, Induced/Lukens Respiratory Culture - Final Mixed normal respiratory rogelio. No Streptococcus pneumoniae, beta-hemolytic Streptococcus or Staphylococcus aureus isolated. 09/05/24 01:00 Urine, Clean Catch Urine Culture - Final Staphylococcus epidermidis ABG Data ABG results: ABG 09/08/24 05:30 Specimen Type ART Sample Site R Radial pH 7.49 H Bicarbonate Actual 22.6 Total CO2 24 Base Excess -1 O2 Saturation 99 O2 % 40.0 ABG pCO2 29.4 L ABG pO2 136 H Stephane Test Positive Respiration Rate 16 O2 Delivery Device Adult Vent Vent Mode AC Tidal Volume 400.0 POC PEEP 5 Imaging Radiology Impression Chest X-Ray 09/08/24 05:45 IMPRESSION: A right PICC is now seen with tip at the area of the expected location of the superior cavoatrial junction. Endotracheal tube again noted appears satisfactory position. Nasogastric tube crosses the diaphragm and extends off the inferior edge of the film. Marked S shaped thoracolumbar partially imaged scoliosis with deformity of the thorax again noted. No significant interval change in appearance of the lungs with appearance of increased perihilar markings possible vascular congestion not excluded. Reading Location: [id number] Assessment and Plan . Assessment and plan: Physical Exam: Gen: intubated, sedated/does awaken HEENT: Pupils:= ETT in place Resp: Good a/e. ++ rhonchi CV:Bradycardia, Regular, No m/g/r Abd: Soft, NT, ND Ext: No c/c/e. Skin: No rashes? Neuro: Sedated, intubated ASSESSMENT: 1. Resp Failure: acute on chronic. Hypoxemic/Hypercapnic. Hx of post-polio + kyphoscoliosis. CXR worse during admit. ? HCAP + volume overload. At current on minimal settings. 16/400/40/5. VE decreased given resp alkalosis. will re-assess for wean after sx in am. 2. Sedation: off propofol 2/2 hypotension. On fent and versed gtt. 3. Shock: 2/2 sedation. Weaned off levophed after stopping propofol. 4. HCAP: ?. infiltrates present though suspect volume. Does have secretions. On Vanc and zosyn. f/u on cultures. Add mucolytics. 5. GI bleed: H/H stable overnight. HCR much lower than last month. Continue PPI. 6. ? Volume Overload: CXR worse during admit. + 9L. Will stop IVFs. Since BP better today, will give one dose of lasix. 7. Hip fracture: repair in am 8. FEN: TFs. Stop IVFs 9. Afib: Holding eliquis. Continue sotalol. Rate controlled at current. 9. PX: SCDs/PPI. Steven Richardson MD Critical Care Time: 50 minutes The entirety of this encounter was done via Telemedicine Subjective Subjective no events overnight
[2024-09-08] MEDS: Vancomycin HCl 750 MG in 0.9% Normal Saline (250mL Bag) 250 ML 250 MG IV (11:56)
[2024-09-08] MEDS: Potassium Chloride 10mEq/100mL 10 MEQ/100 ML IV.SOLN. 100 MEQ IV BOLUS ×4 (12:39→15:57)
--- NOTE | 2024-09-08 12:51 | PCM.CONS.GEN ---
Assessment & Plan Assessment/Plan (1) Closed fracture of neck of left femur: QUALIFIERS: Encounter type: initial encounter Qualified Code(s): S72.002A - Fracture of unspecified part of neck of left femur, initial encounter for closed fracture PLAN: Plan I was contacted by the hospitalist that they would like to proceed with surgery of the patient's left hip while intubated he feels he is intubated because of narcotics that were given the emergency room and is poor respiratory reserve at baseline medial team feels he is optimized to proceed surgically and then attempt to wean off of intubation after surgery. I did speak with the patient's over the phone Karen Joseph and I did review with her options in regards to his left hip fracture. We discussed risk benefits and alternatives of surgical nonsurgical fixation including options of percutaneous screw fixation versus left hip hemiarthroplasty. Patient's wish to proceed with a left hip hemiarthroplasty as a surgical option is that he would not have any weightbearing restrictions postoperatively. risk /benefits and alternatives of surgery were reviewed including risk of bleeding infection nerve artery tissue damage need for further surgery continued pain postoperative restrictions dislocation. Patient is not on any current anticoagulants he will remain intubated per the hospitalist team anesthesia team was notified of the case. We will proceed with a left hip hemiarthroplasty 09/09/2024. From orthopedic standpoint he would likely resume his anticoagulation the day after surgery. HPI Consult Data Date of Consult: 09/08/24 HPI Narrative HPI Narrative: BERNARDA JOSEPH, is a 79 M who presents who I previously had met for a nonoperative condition in the past. Patient was admitted to the hospital 09/05/2024 after a ground-level fall sustaining a left femoral neck fracture orthopedic surgeon who is on-call was notified and did not want to take the case as I had previously seen him for a nonoperative injury in the past. Patient was on Eliquis prior to admission he does have multiple medical comorbidities including postpolio syndrome and multiple right lower extremity orthopedic surgeries. Shortly after arriving at the hospital patient required intubation and has been intubated since. I was consulted now in regards to the left femoral neck fracture surgical intervention. 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 Wears glasses Cancer Depression Claustrophobia Anxiety Alcohol use Redness of skin Uses crutches Arthritis Bladder disease Back pain History of edema History of diverticulitis Post-polio syndrome Non-smoker BiPAP (biphasic positive airway pressure) dependence History of CHF (congestive heart failure) On home oxygen therapy History of pain when walking History of stress test History of echocardiogram Chronic respiratory failure with hypoxia and hypercapnia On mechanically assisted ventilation Post-poliomyelitis syndrome Acute on chronic respiratory failure with hypoxia and hypercapnia Hypertension Lumbar radicular pain Degenerative scoliosis Scoliosis Segmental dysfunction of thoracic region Home Medications ?Medication ?Instructions ?Recorded ?Last Taken ?Type tamsulosin 0.4 mg capsule 0.4 mg PO BID prostate 02/03/20 08/09/24 History venlafaxine 75 mg capsule,extended 75 mg PO DAILY MOOD 05/31/22 08/09/24 History release 24 hr cyanocobalamin (vitamin B-12) 500 500 mcg PO DAILY supplement 07/10/24 07/28/24 History mcg tablet losartan 50 mg tablet 50 mg PO QHS BP #0 tabs 07/28/24 Unknown Rx acetaminophen 500 mg tablet 1,000 mg (2 x 500 mg) PO QHS #0 08/18/24 Unknown Rx tabs fluticasone propionate 50 1 spray NASAL BID 30 days #16 grams 08/18/24 Unknown Rx mcg/actuation nasal spray,suspension omeprazole 40 mg capsule,delayed 40 mg PO QDAY 30 days #30 caps 08/21/24 Unknown Rx release polyethylene glycol 3350 17 8.5 g PO .COMPLEX PRN constipation 09/02/24 Unknown History gram/dose oral powder (Miralax) apixaban 5 mg tablet (Eliquis) 5 mg PO BID #180 tabs 09/04/24 Unknown Rx sotalol 80 mg tablet 80 mg PO BID #180 tabs 09/04/24 Unknown Rx Allergy/AdvReac Type Severity Reaction Status Date / Time metronidazole (From Flagyl) AdvReac Nausea/Vom/ Verified 09/04/24 23:42 Diarrhea Family History (Reviewed 09/02/24 @ 14:41 by Soni Lopez TRANSPORT OPERATIONS INSPECTOR, TRANSPORT OPERATIONS INSPECTOR-C) Father Myocardial infarction Heart disease Mother Shy-Drager syndrome Other CVA (cerebral vascular accident) Surgical History (Reviewed 09/02/24 @ 14:41 by Soni Lopez TRANSPORT OPERATIONS INSPECTOR, TRANSPORT OPERATIONS INSPECTOR-C) History of selective injection of anesthetic agent around lumbar nerve root Hx of lithotripsy History of cardiac catheterization Hx of cystoscopy H/O adenoidectomy History of uvulectomy Hip fracture, right History of open reduction and internal fixation (ORIF) procedure Right tibial fracture H/O spinal fusion Social History (Reviewed 09/02/24 @ 14:41 by Soni Lopez TRANSPORT OPERATIONS INSPECTOR, TRANSPORT OPERATIONS INSPECTOR-C) household members: spouse housing: house Smoking Status: Never smoker substance use type: does not use Physical Exam Const Constitutional Narrative: Patient is intubated and not responsive Extremity Extremity Narrative: His left lower extremity is warm with palpable pedal pulse no open wounds compartments are soft. Significant leg length discrepancy has his right lower extremity has sequela postpolio syndrome. Lab / Micro Data 09/08/24 03:25 09/08/24 03:25 Labs: Laboratory Results - last 24 hr 09/07/24 14:33: Hgb 10.4 L, Hct 31.7 L 09/07/24 23:58: POC Glucose 77 09/08/24 03:25: WBC 7.8, RBC 3.31 L, Hgb 10.2 L, Hct 30.7 L, MCV 92.7, MCH 30.8, MCHC 33.2, RDW Std Deviation 51.4 H, RDW Coeff of Larry 15.0 H, Plt Count 189, MPV 10.4, Immature Gran % (Auto) 0.500, Neut % (Auto) 71.5 H, Lymph % (Auto) 7.9 L, [place] % (Auto) 10.2 H, Eos % (Auto) 9.3 H, Baso % (Auto) 0.6, Absolute Neuts (auto) 5.6, Absolute Lymphs (auto) 0.61 L, Nucleated RBC % 0, Sodium 143, Potassium 3.1 L, Chloride 112 H, Carbon Dioxide 20.7 L, Anion Gap 10, BUN 18, Creatinine 0.56 L, Estim Creat Clear Calc 64.75, Est GFR (MDRD) Non-Af 102, BUN/Creatinine Ratio 31.7 H, Glucose 101 H, Calcium 8.1, Phosphorus 2.9, Magnesium 1.5 09/08/24 05:52: POC Glucose 99 Micro: Microbiology 09/05/24 04:30 Sputum, Induced/Lukens Gram Stain - Final 09/05/24 04:30 Sputum, Induced/Lukens Respiratory Culture - Final Mixed normal respiratory rogelio. No Streptococcus pneumoniae, beta-hemolytic Streptococcus or Staphylococcus aureus isolated. ABG Data ABG results: ABG 09/08/24 05:30 Specimen Type ART Sample Site R Radial pH 7.49 H Bicarbonate Actual 22.6 Total CO2 24 Base Excess -1 O2 Saturation 99 O2 % 40.0 ABG pCO2 29.4 L ABG pO2 136 H Stephane Test Positive Respiration Rate 16 O2 Delivery Device Adult Vent Vent Mode AC Tidal Volume 400.0 POC PEEP 5 Imaging Radiology Impression Chest X-Ray 09/08/24 05:45 IMPRESSION: A right PICC is now seen with tip at the area of the expected location of the superior cavoatrial junction. Endotracheal tube again noted appears satisfactory position. Nasogastric tube crosses the diaphragm and extends off the inferior edge of the film. Marked S shaped thoracolumbar partially imaged scoliosis with deformity of the thorax again noted. No significant interval change in appearance of the lungs with appearance of increased perihilar markings possible vascular congestion not excluded. Reading Location: [id number]
[2024-09-08 13:00] LABS: Bedside Glucose 73 mg/dL (74-106)
[2024-09-08] MEDS: Ipratropium/Albuterol Sulfate 3 ML AMPUL.NEB INHALATION ×2 (13:00→19:42)
[2024-09-08] MEDS: Acetylcysteine 800 MG/4 ML VIAL.NEB. INHALATION ×2 (13:00→19:41)
[2024-09-08] MEDS: Midazolam 50 MG in 0.9% Normal Saline (100mL Bag) 90 ML CONT INF (15:55)
[2024-09-08] MEDS: Furosemide 40 MG/4 ML Vial IV (17:35)
[2024-09-08 20:09] LABS: Anion Gap 11 (5-15); BUN 14 mg/dL (4-19); BUN/Creat Ratio 23.3 RATIO (10-20); Calcium,Total 8.6 mg/dL (7.6-11.0); Carbon Dioxide 22.6 mmol/L (21.0-32.0); Chloride 109 mmol/L (98-108); Creatinine, Serum 0.61 mg/dL (0.70-1.20); EST Glomerular Filtration Rate 99 (>60); Estimated Creatinine Clearance 64.75 ml/min (50-250); Glucose 116 mg/dL (70-99); Magnesium 1.5 mg/dL (1.5-2.2); Potassium 3.4 mmol/L (3.3-5.1); Sodium Level 143 mmol/L (133-145)
[2024-09-08 23:01] LABS: Vancomycin, Trough Level 9.9 ug/mL (5.0-15.0)
--- NOTE | 2024-09-08 23:11 | PCM.RX.CS ---
Consult Antibiotic Management Pharmacy has been consulted to manage selected antibiotic: Vancomycin Type of Intervention Type of Consult: Follow-up Labs Labs: Sodium 143 mmol/L (133-145) 09/08/24 19:36 Potassium 3.4 mmol/L (3.3-5.1) 09/08/24 19:36 Chloride 109 mmol/L (98-108) H 09/08/24 19:36 Carbon Dioxide 22.6 mmol/L (21.0-32.0) 09/08/24 19:36 Anion Gap 11 (5-15) 09/08/24 19:36 BUN 14 mg/dL (4-19) 09/08/24 19:36 Creatinine 0.61 mg/dL (0.70-1.20) L 09/08/24 19:36 Est GFR (MDRD) Non-Af 99 (>60) 09/08/24 19:36 BUN/Creatinine Ratio 23.3 RATIO (10-20) H 09/08/24 19:36 Glucose 116 mg/dL (70-99) H 09/08/24 19:36 Vancomycin Trough 9.9 ug/mL (5.0-15.0) 09/08/24 22:34 Microbiology Microbiology: Microbiology 09/05/24 04:30 Sputum, Induced/Lukens Gram Stain - Final 09/05/24 04:30 Sputum, Induced/Lukens Respiratory Culture - Final Mixed normal respiratory rogelio. No Streptococcus pneumoniae, beta-hemolytic Streptococcus or Staphylococcus aureus isolated. 09/05/24 01:00 Urine, Clean Catch Urine Culture - Final Staphylococcus epidermidis 09/05/24 03:00 Blood Culture (Wb) - Left Hand Blood Culture - Preliminary No growth in 48 hours. 09/05/24 02:46 Blood Culture (Wb) - Anticubital Left Blood Culture - Preliminary No growth in 48 hours. Goal Trough Goal Trough: 10-15 mcg/mL Pharmacy Plan for Drug Dosing Pharmacy Plan for Drug Dosing: Pharmacy Service will continue to monitor and adjust dosing as required. TROUGH 9.9 @ 10.5 HOURS. INCREASE TO 1GM Q12H AND FOLLOW UP TROUGH PRIOR TO 4TH DOSE Follow-Up Labs Follow-Up Labs: Trough: Vancomycin Date/Time Labs Ordered Labs to be done on [date and time ordered]: 09/10 @ 1030
[2024-09-08] MEDS: Vancomycin IV 1,000 MG/200 ML BAG 200 MG IV (23:43)
[2024-09-09] VITALS (32 sets, daily range): BP systolic 98–145; BP diastolic 56–95; PULSE 16–103; RESP 12–19; TEMP 36.3–38.3; O2SAT 82–100; BMI 25.1
[2024-09-09] MEDS: 0.9% Saline Lock 10 ML Syringe IV ×2 (01:14→05:06)
[2024-09-09 01:30] LABS: Bedside Glucose 157 mg/dL (74-106)
[2024-09-09] MEDS: Piperacil/Tazobactam 3.375 GM in 0.9% Normal Saline (50mL MB+) 50 ML IV ×2 (05:07→20:59)
[2024-09-09 05:20] LABS: Absolute Lymphocyte Count 0.87 X10^3/uL (0.83-4.51); Absolute Neutrophil Count 6.3 X10^3/uL (2.0-7.7); Basophil# 0.04 X10^3/uL; Basophil% 0.4 % (0-1); Eosinophil# 0.62 X10^3/uL; Hematocrit 34.4 % (40-54); Hemoglobin 11.8 g/dL (13.0-16.5); Lymphocyte # 0.87 X10^3/ul (0.83-4.51); Lymphocyte % 9.8 % (19-41); Mean Corp Hgb Conc 34.3 g/dL (32-36); Mean Corpuscular Hgb 31.3 pg (27.0-32.0); Mean Corpuscular Volume 91.2 fL (80-94); Mean Platelet Vol. 9.7 fl (6.2-12.0); Monocyte# 1.06 X10^3/uL; Monocyte% 11.9 % (0-10); NRBC Flagged by Analyzer 0 % (0-5); Neutrophil # 6.25 X10^3/uL (2.7-7.7); Neutrophil % 70.1 % (47-70); Platelet Count 211 K/mm3 (150-450); RBC Distribution Width CV 14.6 % (11.6-14.6); RBC Distribution Width SD 49.2 fl (35.1-43.9); Red Blood Count 3.77 M/mm3 (4.6-6.2); White Blood Count 8.9 K/mm3 (4.4-11.0)
--- NOTE | 2024-09-09 05:20 | RAD_ITS ---
PROCEDURE: CHEST 1 VIEW (PORTABLE) 09/09/2024 REASON FOR EXAM: ETT VALIDATION TECHNIQUE: Frontal view of the chest. COMPARISON: 09/08/2024 FINDINGS: Endotracheal tube not significantly changed in position. A right PICC and nasogastric tube again noted. Scoliosis and chest deformity again noted. No significant interval change in appearance of the lungs or cardiac silhouette. RAD/Chest 1 View (Portable) IMPRESSION: Endotracheal tube not significantly changed in position. Reading Location: [id number]
[2024-09-09 05:29] LABS: Allen Test Positive; Base Excess 6 mmol/L (-2 to +2); Bicarbonate 29.2 mmol/L (22-26); Blood Gas Specimen Type ART; Mode AC VC; O2 Delivery Device Adult Vent; PEEP 5; PO2 129 mmHG (75-100); RR 16; SITE L Radial; SO2 99 % (95-99); Total Carbon Dioxide 31 mmol/L; pCO2 39.9 mmHg (35-45); pH 7.47 (7.35-7.45)
[2024-09-09 05:32] LABS: Bedside Glucose 110 mg/dL (74-106)
[2024-09-09] MEDS: fentaNYL drip 100 ML 17.5 MCG CONT INF ×4 (05:35→18:52)
[2024-09-09 05:48] LABS: Anion Gap 12 (5-15); BUN 11 mg/dL (4-19); BUN/Creat Ratio 16.6 RATIO (10-20); Calcium,Total 8.6 mg/dL (7.6-11.0); Carbon Dioxide 25.8 mmol/L (21.0-32.0); Chloride 106 mmol/L (98-108); Creatinine, Serum 0.64 mg/dL (0.70-1.20); EST Glomerular Filtration Rate 97 (>60); Estimated Creatinine Clearance 64.75 ml/min (50-250); Glucose 112 mg/dL (70-99); Potassium 3.4 mmol/L (3.3-5.1); Sodium Level 144 mmol/L (133-145)
[2024-09-09] MEDS: Pantoprazole Sodium 80 MG in 0.9% Normal Saline (100mL Bag) 80 ML 10 MG CONT INF (06:58)
[2024-09-09] MEDS: Ipratropium/Albuterol Sulfate 3 ML AMPUL.NEB INHALATION (07:04)
[2024-09-09] MEDS: Acetylcysteine 800 MG/4 ML VIAL.NEB. INHALATION (07:04)
[2024-09-09] MEDS: CHLORHEXIDINE GLUC 2% CLOTH 1 EACH TOWELETTE TOPICAL (08:21)
[2024-09-09] MEDS: Chlorhexidine 15 ML PO ×2 (08:22→20:59)
--- NOTE | 2024-09-09 09:26 | PN.HOSP_ITS ---
Subjective Subjective Intubated and sedated planning for surgery today Objective Data Objective Data Vital Signs: Vital Signs Temp Pulse Resp BP Pulse Ox O2 Del Method O2 Flow Rate 99.1 F 88 16 120/74 95 Mechanical Ventilator 40 09/09/24 00:00 09/09/24 07:05 09/09/24 07:05 09/09/24 07:00 09/09/24 07:05 09/09/24 07:00 09/05/24 05:19 FiO2 40 09/09/24 07:05 Oxygen Flow Rate (L/min) 40 Oxygen Delivery Method Mechanical Ventilator Weight: 146 lb 6.191 oz Body Mass Index (BMI) 25.1 Intake & Output: Intake and Output for Last 24 Hours 09/08/24 09/09/24 09/10/24 03:59 03:59 03:59 Intake Total 3591.42 / 3592.71 2923.75 / 2945.25 229.91 / 229.91 Output Total 650 / 650 5025 / 5025 550 / 550 Balance 2941.42 / 2942.71 -2101.25 / -2079.75 -320.09 / -320.09 Lab / Micro Data 09/09/24 05:12 09/09/24 05:12 Labs: Laboratory Results - last 24 hr 09/08/24 12:39: POC Glucose 73 L 09/08/24 19:36: Sodium 143, Potassium 3.4, Chloride 109 H, Carbon Dioxide 22.6, Anion Gap 11, BUN 14, Creatinine 0.61 L, Estim Creat Clear Calc 64.75, Est GFR (MDRD) Non-Af 99, BUN/Creatinine Ratio 23.3 H, Glucose 116 H, Calcium 8.6, Magnesium 1.5 09/08/24 22:34: Vancomycin Trough 9.9 09/09/24 01:11: POC Glucose 157 H 09/09/24 05:12: WBC 8.9, RBC 3.77 L, Hgb 11.8 L, Hct 34.4 L, MCV 91.2, MCH 31.3, MCHC 34.3, RDW Std Deviation 49.2 H, RDW Coeff of Larry 14.6, Plt Count 211, MPV 9.7, Immature Gran % (Auto) 0.800, Neut % (Auto) 70.1 H, Lymph % (Auto) 9.8 L, M phi % (Auto) 11.9 H, Eos % (Auto) 7.0 H, Baso % (Auto) 0.4, Absolute Neuts (auto) 6.3, Absolute Lymphs (auto) 0.87, Nucleated RBC % 0, Sodium 144, Potassium 3.4, Chloride 106, Carbon Dioxide 25.8, Anion Gap 12, BUN 11, C reatinine 0.64 L, Estim Creat Clear Calc 64.75, Est GFR (MDRD) Non-Af 97, BUN/Creatinine Ratio 16.6, Glucose 112 H, Calcium 8.6, POC Glucose 110 H Micro: Microbiology 09/05/24 04:30 Sputum, Induced/Lukens Gram Stain - Final 09/05/24 04:30 Sputum, Induced/Lukens Respiratory Culture - Final Mixed normal respiratory rogelio. No Streptococcus pneumoniae, beta-hemolytic Streptococcus or Staphylococcus aureus isolated. 09/05/24 01:00 Urine, Clean Catch Urine Culture - Final Staphylococcus epidermidis 09/05/24 03:00 Blood Culture (Wb) - Left Hand Blood Culture - Preliminary No growth in 48 hours. 09/05/24 02:46 Blood Culture (Wb) - Anticubital Left Blood Culture - Preliminary No growth in 48 hours. ABG Data ABG results: ABG 09/09/24 05:25 Specimen Type ART Sample Site L Radial pH 7.47 H Bicarbonate Actual 29.2 H Total CO2 31 Base Excess 6 H O2 Saturation 99 O2 % 40.0 ABG pCO2 39.9 ABG pO2 129 H Stephane Test Positive Respiration Rate 16 O2 Delivery Device Adult Vent Vent Mode AC VC Tidal Volume 400.0 POC PEEP 5 Radiography Diagnostic Testing: Radiology Impression Chest X-Ray 09/09/24 05:20 IMPRESSION: Endotracheal tube not significantly changed in position. Reading Location: [facility] Physical Exam Const General Appearance: intubated and patient mechanically ventilated HEENT normocephalic Eyes PERRL and conjunctivae normal Neck supple and no JVD Resp normal respiratory effort, no retractions and no use of accessory muscles Auscultation: Negative for crackles, rales, rhonchi or wheezes Cardio regular rate, regular rhythm, S1 normal heart sound, S2 normal heart sound and no murmurs GI soft to palpation and non-distended; Negative for hepatosplenomegaly Extremity no clubbing, cyanosis or edema Skin no rashes or lesions noted Neuro Sensorium / Orientation: sedated on vent Psych Appearance: intubated Assessment & Plan Assessment/Plan (1) Closed fracture of neck of left femur: QUALIFIERS: Encounter type: initial encounter Qualified Code(s): S72.002A - Fracture of unspecified part of neck of left femur, initial encounter for closed fracture PLAN: Plan 1. Acute on chronic respiratory failure after a mechanical fall leading to left femoral neck fracture/possible pneumonia ? Had a mechanical fall at home and on arrival to the ER had to be intubated due to rising pCO2 and declining mental status ? Initially he was set to be transferred to [place] for orthopedic surgery however this was canceled due to him needing to be intubated and sent to the ICU, we attempted to transfer last evening however they refused they do not except ICU to ICU transfers ? Continue with critical care management ? 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 Appreciate behavioral psychologist assistance ? Continue with empiric Zosyn, ICU added vancomycin ? plan for operative repair today 2. A-fib/essential HTN/HLD ? Resume his home rate control medications ? Will hold his Eliquis as he will need surgery at some point ? Continue with his home blood pressure medications ? Will monitor make adjustments as necessary ? Echo on 07/23/2024 EF of 55% with a PASP of 35 mmHg 3. Anxiety/depression ? Stable ? Continue Effexor 4. GERD ? Stable ? Continue with PPI ? H&H is stabilized, he does not have a significant GI bleed DVT: Lovenox Charges/Coding Visit Charges Inpatient E&M: 41206 Subs Hosp L2
--- NOTE | 2024-09-09 10:12 | PCM.PN.TICU ---
Objective Data Objective Data Vital Signs: Vital Signs Last response Temperature 37.3 C 09/09/24 00:00 Temperature Source Core 09/09/24 00:00 Pulse Rate 88 09/09/24 07:05 Pulse Strength Normal (2+) 09/07/24 07:41 Respiratory Rate 16 09/09/24 07:05 Respiratory Effort Mechanically Ventilated 09/09/24 03:57 Respiratory Depth Normal 09/09/24 03:57 Respiratory Pattern Normal 09/09/24 07:05 Blood Pressure 120/74 09/09/24 07:00 Blood Pressure Mean 89 09/09/24 07:00 Blood Pressure Source Monitor 09/09/24 07:00 Blood Pressure Position Semi-Fowlers 09/09/24 07:00 Blood Pressure Location Left Arm 09/09/24 07:00 Pulse Ox 95 09/09/24 07:05 Oxygen Delivery Method Mechanical Ventilator 09/09/24 07:00 Oxygen Flow Rate (L/min) 40 09/05/24 05:19 Fraction of Inspired Oxygen (FIO2) 40 09/09/24 07:05 I&O: I&O Last 24 Hours 09/08/24 09/08/24 09/09/24 11:59 23:59 11:59 Intake Total 433.46 / 2457.92 2007.09 / 2457.92 852.11 / 852.11 Output Total 300 / 4300 4000 / 4300 1275 / 1275 Balance 133.46 / -1842.08 -1992.91 / -1842.08 -422.89 / -422.89 I&O: Total Stay 09/04/24 23:32 thru 09/09/24 09:56 Intake Total 96844.58 Output Total 7550 Balance 6669.58 Current Meds Ordered / Administered: Current meds ordered / Administered Generic Name Dose Route Start Last Admin Trade Name Freq PRN Reason Stop Dose Admin Acetaminophen 650 mg 09/05/24 13:55 09/05/24 14:51 Acetaminophen 650 Mg/20 Ml Udc GT 650 mg Q6H PRN PRN Administration Pain 1-10 or Fever Acetylcysteine 800 mg 09/08/24 11:30 09/09/24 07:04 Acetylcysteine 800 Mg/4 Ml Vial.Neb. INHALATION 800 mg Q12 NIURKA Administration Albuterol Sulfate 2.5 mg 09/05/24 05:29 09/08/24 09:14 Albuterol 2.5 Mg/3 Ml Vial.Neb. INHALATION 2.5 mg Q2H PRN PRN Administration SOB &/OR WHEEZING Albuterol/Ipratropium 3 ml 09/08/24 11:30 09/09/24 07:04 Ipratropium/Albuterol Sulfate 3 Ml Ampul.Neb INHALATION 3 ml Q12 NIURKA Administration Chlorhexidine Gluconate 1 each 09/06/24 10:00 09/09/24 08:21 Chlorhexidine Gluc 2% Cloth 1 Each Towelette TOPICAL 1 each DAILY NIURKA Administration Chlorhexidine Gluconate 15 ml 09/06/24 10:00 09/09/24 08:22 Chlorhexidine 15 Ml PO 15 ml BID NIURKA Administration Cyanocobalamin 500 mcg 09/05/24 10:00 09/09/24 08:22 Cyanocobalamin 500 Mcg Tablet GT Not Given DAILY NIURKA Glucagon 1 mg 09/05/24 05:29 Glucagon 1 Mg/Ml Syringe IM X1 PRN HYPOGLYCEMIA Protocol Fentanyl 100 mls @ 2.5 mls/hr 09/05/24 04:30 09/09/24 08:23 CONT INF 175 mcg/hr UD NIURKA 17.5 mls/hr Titration Protocol 25 MCG/HR Dextrose 250 mls @ 0 mls/hr 09/05/24 05:29 09/07/24 16:24 Dextrose 10%-Water IV Infused .Q0M PRN Infusion HYPOGLYCEMIA Protocol As Directed Sodium Chloride 250 mls @ 15 mls/hr 09/05/24 06:03 09/07/24 19:30 IV 0 mls/hr .[id number] PRN Infusion Saline Flush Sodium Chloride 250 mls @ 15 mls/hr 09/05/24 06:03 IV .[id number] PRN Additional IVPB Infusion Piperacillin Sod/Tazobactam 50 mls @ 12.5 mls/hr 09/05/24 09:55 09/09/24 05:07 Sod 3.375 gm/ Sodium Chloride IV 12.5 mls/hr Q8 NIURKA Administration Midazolam HCl 50 mg/ Sodium 100 mls @ 2 mls/hr 09/07/24 10:10 09/09/24 08:23 Chloride CONT INF 2 mg/hr .Q50H NIURKA 4 mls/hr Titration Protocol 1 MG/HR Pantoprazole Sodium 80 mg/ 100 mls @ 10 mls/hr 09/07/24 11:30 09/09/24 08:23 Sodium Chloride CONT INF 10 mls/hr Q10H NIURKA Infusion Vancomycin IV-PHARMACY TO DOSE 500 mls @ 250 mls/hr 09/07/24 10:33 1 each/ Sodium Chloride IV X1 PRN Rx to Dose Protocol Enteral Nutritional Formula 1,000 mls @ 20 mls/hr 09/08/24 09:55 09/09/24 00:43 Vital Af 1.2 Ryan Liquid GT 0 mls/hr .Q48H NIURKA Infusion Vancomycin HCl 1,000 mg in 200 mls @ 200 mls/hr 09/08/24 23:00 09/09/24 00:43 Vancomycin IV Infused Q12H NIURKA Infusion Losartan Potassium 50 mg 09/05/24 22:00 09/06/24 21:04 Losartan Potassium 50 Mg Tablet GT Not Given QHS [facility] Protocol Polyethylene Glycol 8.5 gm 09/05/24 07:43 Polyethylene Glycol 3350 17 Gm Packet GT Q48H PRN constipation Sodium Chloride 10 - 40 ml 09/05/24 06:03 09/09/24 05:06 0.9% Saline Lock 10 Ml Syringe IV 10 ml UD PRN Administration SALINE FLUSH Sotalol HCl 80 mg 09/05/24 10:00 09/07/24 10:44 Sotalol Hydrochloride 80 Mg Tablet GT Not Given BID [facility] Protocol Tamsulosin HCl 0.4 mg 09/05/24 10:00 09/09/24 08:22 Tamsulosin Hcl 0.4 Mg Capsule PO Not Given BID [facility] Vancomycin Protocol 1 lab 09/10/24 09:30 Vancomycin Trough/Random Due 09/10/24 11:30 DAILY [facility] Venlafaxine HCl 75 mg 09/05/24 10:00 09/09/24 08:22 Venlafaxine Xr 75 Mg Capsule PO Not Given DAILY [facility] Lab / Micro Data 09/09/24 05:12 09/09/24 05:12 Labs: Laboratory Results - last 24 hr 09/08/24 12:39: POC Glucose 73 L 09/08/24 19:36: Sodium 143, Potassium 3.4, Chloride 109 H, Carbon Dioxide 22.6, Anion Gap 11, BUN 14, Creatinine 0.61 L, Estim Creat Clear Calc 64.75, Est GFR (MDRD) Non-Af 99, BUN/Creatinine Ratio 23.3 H, Glucose 116 H, Calcium 8.6, Magnesium 1.5 09/08/24 22:34: Vancomycin Trough 9.9 09/09/24 01:11: POC Glucose 157 H 09/09/24 05:12: WBC 8.9, RBC 3.77 L, Hgb 11.8 L, Hct 34.4 L, MCV 91.2, MCH 31.3, MCHC 34.3, RDW Std Deviation 49.2 H, RDW Coeff of Larry 14.6, Plt Count 211, MPV 9.7, Immature Gran % (Auto) 0.800, Neut % (Auto) 70.1 H, Lymph % (Auto) 9.8 L, Hyde % (Auto) 11.9 H, Eos % (Auto) 7.0 H, Baso % (Auto) 0.4, Absolute Neuts (auto) 6.3, Absolute Lymphs (auto) 0.87, Nucleated RBC % 0, Sodium 144, Potassium 3.4, Chloride 106, Carbon Dioxide 25.8, Anion Gap 12, BUN 11, Creatinine 0.64 L, Estim Creat Clear Calc 64.75, Est GFR (MDRD) Non-Af 97, BUN/Creatinine Ratio 16.6, Glucose 112 H, Calcium 8.6, POC Glucose 110 H ABG Data ABG results: ABG 09/09/24 05:25 Specimen Type ART Sample Site L Radial pH 7.47 H Bicarbonate Actual 29.2 H Total CO2 31 Base Excess 6 H O2 Saturation 99 O2 % 40.0 ABG pCO2 39.9 ABG pO2 129 H Stephane Test Positive Respiration Rate 16 O2 Delivery Device Adult Vent Vent Mode AC VC Tidal Volume 400.0 POC PEEP 5 Imaging Radiology Impression Chest X-Ray 09/09/24 05:20 IMPRESSION: Endotracheal tube not significantly changed in position. Reading Location: [id number] Assessment and Plan . Assessment and plan: 1. Resp Failure: acute on chronic. Hypoxemic/Hypercapnic. Hx of post-polio + kyphoscoliosis. CXR worse during admit. ? HCAP + volume overload. At current on minimal settings. 14/400/40/5--> VE decreased given resp alkalosis. will re-assess for wean after sx today. 2. Sedation: off propofol 2/2 hypotension. On fent and versed gtt. SAT after surgery. 3. Shock: 2/2 sedation. Weaned off levophed after stopping propofol 48 hours ago. 4. HCAP: ?. infiltrates present though suspect volume. Does have secretions. On Vanc and zosyn. Sputum with mixed rogelio. Added mucolytics-->better today. Will stop.. 5. GI bleed: H/H stable overnight. HCT much lower than last month. Continue PPI. 6. ? Volume Overload: CXR worse during admit. + 9L. Stopped IVFs/Added lasix 09/08. Excellent diuresis overnight. Lasix prn. 7. Hip fracture: repair today 8. FEN: TFs. 9. Afib: Holding eliquis. Continue sotalol. Rate controlled at current. 9. PX: SCDs/PPI. Steven Richardson MD Critical Care Time: 50 minutes The entirety of this encounter was done via Telemedicine Physical Exam Narrative intubated, sedated pupils:= ETT in place CV: RRR, No m Chest: Coarse BS, Good a/e Abd: soft, nt, +bs Ext: no c/e/c Skin: no rashes Subjective Subjective diuresed well overnight. Awaiting surgery for hip
[2024-09-09] MEDS: Sotalol Hydrochloride 80 MG Tablet GT ×2 (10:37→21:00)
[2024-09-09] MEDS: Vancomycin IV 1,000 MG/200 ML BAG 200 MG IV ×2 (10:38→23:26)
--- NOTE | 2024-09-09 12:32 | PCM.PRE.AN2 ---
ASA Classification* ASA Classification ASA Classification: 4 Assessment & Plan Anesthesia* Anesthesia Assessment Anesthesia Assessment: Discussed sedation and/or anesthesia options, risks, benefits, and alternatives with patient/parents/legal guardian/POA. Questions invited. The patient/parents/legal guardian/POA seems to understand and agrees to proceed with anesthesia plan. Reviewed the physical assessment, medical history, allergy history and patient home medications list prior to surgery/procedure/anesthetic and documented any changes. Performed airway and anesthesia risk assessments. Anesthesia Type Anesthesia Type: General Anesthesia Focused Assessment* Temperature: 99.1 F Pulse Rate: 78 Blood Pressure: 120/74 Respiratory Rate: 14 Pulse Ox: 91 Oxygen Flow Rate (L/min): 40 Fraction of Inspired Oxygen (FIO2): 40 Airway Assessment Mouth opens: >3 cm Mallampati Score: II Comment: Patient currently in ICU intubated. Patient had a respiratory failure due to narcotics and polio history. Not tolerating propofol well. Due to hypotension. Television Specialist, hospitalist, surgeon feel patient is optimized at this time and wished to proceed with Blaine arthroplasty. Will keep patient intubated and use small amounts of sedation with some muscle relaxation. And with subsequent return to ICU with patient remaining intubated postop. Focused Labs Anesthesia Preop lab: CBC WBC 8.9 K/mm3 (4.4-11.0) 09/09/24 05:12 09/09/24 RBC 3.77 M/mm3 (4.6-6.2) L 09/09/24 05:12 09/09/24 Hgb 11.8 g/dL (13.0-16.5) L 09/09/24 05:12 09/09/24 Hct 34.4 % (40-54) L 09/09/24 05:12 09/09/24 Plt Count 211 K/mm3 (150-450) 09/09/24 05:12 09/09/24 CHEMISTRY Potassium 3.4 mmol/L (3.3-5.1) 09/09/24 05:12 09/09/24 Sodium 144 mmol/L (133-145) 09/09/24 05:12 09/09/24 Magnesium 1.5 mg/dL (1.5-2.2) 09/08/24 19:36 09/08/24 Phosphorus 2.9 mg/dL (2.7-4.5) 09/08/24 03:25 09/08/24 BUN 11 mg/dL (4-19) 09/09/24 05:12 09/09/24 Creatinine 0.64 mg/dL (0.70-1.20) L 09/09/24 05:12 09/09/24 Glucose 112 mg/dL (70-99) H 09/09/24 05:12 09/09/24 POC Glucose 110 mg/dL (74-106) H 09/09/24 05:12 09/09/24 TSH 0.927 uIU/mL (0.300-4.200) 09/05/24 00:13 09/05/24 COAG PT 12.5 SECONDS (11.7-14.9) 01/21/22 14:52 01/21/22 Pre-Assessment Diagnosis/Proposed Procedure Planned Operative Procedure(s): Left hemiarthroplasty, hip. Anesthesia History Anesthesia History - director of category management: Anesthesia History - director of category management Hx Hospitalization Yes: 05/2022 CO2 RETENTION 07/09/24 11:21 Any Problems With Anesthesia Yes: WOKE UP SLOWLY/ NOT 07/09/24 11:21 DURING RECENT BLADDER SURGERY 09/2022 Cholinesterase deficiency No 07/09/24 11:21 You/Your Family Experience No 07/09/24 11:21 fever (hyperthermia) with Relationship Recent Exposure to Contagious No 07/09/24 11:21 Disease Does patient have nerve No 07/09/24 11:21 stimulator Patient instructed to have device shut off --Does patient have Pacemaker or ICD? When Was Last Pacemaker Check QUESTION #4 FULL TEXT: You/Your Family Experience fever (hyperthermia) with Anesthesia Last Oral Intake Last Oral intake: Last Oral Intake NPO since Meds taken in AM with sips of water? Meds patient instructed to take am of surgery PONV PONV - director of category management: PONV - director of category management Female HX of Motion Sickness HX of N/V After Surgery Non-Smoker Duration of Surgery greater than 60 minutes Number of Risk Factors PONV Score Height & Weight Height & Weight: Anesthesia: Height & Weight Height 5 ft 4 in 09/09/24 09:56 Weight: 66.4 kg 09/09/24 09:56 Body Mass Index (BMI) 25.1 09/09/24 05:12 Respiratory Assessment Respiratory Assessment - director of category management: Respiratory Tract Infection Hx - director of category management Hx Respiratory Tract Infection No 07/09/24 11:21 STOP Sleep Apnea STOP Sleep Apnea - director of category management: STOP Sleep Apnea - director of category management Hx Hypertension Yes 09/09/24 10:44 Hx Sleep Apnea No 09/05/24 06:01 CPAP No 08/09/24 17:04 BIPAP Yes 08/09/24 17:04 Do you snore loudly (louder No 09/05/24 06:01 than talking or can be heard Do you often feel tired/ No 09/05/24 06:01 fatigued/ sleepy during daytime? Has anyone observed you stop No 09/05/24 06:01 breathing during sleep? STOP Results Negative 09/05/24 06:01 QUESTION #5 FULL TEXT : Do you snore loudly (louder than talking or can be heard through closed doors)? Tobacco Use History Tobacco Use History - director of category management: Tobacco Use History - director of category management Tobacco Use Smoking Status Never smoker 09/05/24 06:01 Hx Tobacco Use No 09/05/24 06:01 Years Smoking Packs Smoked per Day Smoking Cessation Date was within the last 15 years Hx Smoking Cessation Date Hx Smoking Cessation Counseling Hematologic Medial History Hematologic Hx - director of category management: Hematologic Medical Hx - signals officer Hx of Blood Transfusion Hx of Transfusion in last 3 Months Date of Last Transfusion (if within last 3 months) Ever experience any problems with transfusion(s)? Specify any problems Hx of Preganancy in last 3 Months Nurse Filling Out Transfusion & Questions: Date: Time: Patient unable to answer at Yes 09/05/24 06:01 this time (ie. confused, unrespo /Reproduction History /Reproductive History - director of category management: /Reproductive Hx- director of category management Hx Now Gestational Age (in weeks): EDC: Hx Hx Para Hx Section SAB No 07/09/24 11:21 Active Medications Active Medications: Current Medications Generic Name Dose Route Start Last Admin Trade Name Freq PRN Reason Stop Dose Admin Acetaminophen 650 mg 09/05/24 13:55 09/05/24 14:51 Acetaminophen 650 Mg/20 Ml Udc GT 650 mg Q6H PRN PRN Administration Pain 1-10 or Fever Albuterol Sulfate 2.5 mg 09/05/24 05:29 09/08/24 09:14 Albuterol 2.5 Mg/3 Ml Vial.Neb. INHALATION 2.5 mg Q2H PRN PRN Administration SOB &/OR WHEEZING Chlorhexidine Gluconate 1 each 09/06/24 10:00 09/09/24 08:21 Chlorhexidine Gluc 2% Cloth 1 Each Towelette TOPICAL 1 each DAILY NIURKA Administration Chlorhexidine Gluconate 15 ml 09/06/24 10:00 09/09/24 08:22 Chlorhexidine 15 Ml PO 15 ml BID NIURAK Administration Cyanocobalamin 500 mcg 09/05/24 10:00 09/09/24 08:22 Cyanocobalamin 500 Mcg Tablet GT Not Given DAILY NIURKA Glucagon 1 mg 09/05/24 05: Glucagon 1 Mg/Ml Syringe IM X1 PRN HYPOGLYCEMIA Protocol Fentanyl 100 mls @ 2.5 mls/hr 09/05/24 04:30 09/09/24 11:45 CONT INF 175 mcg/hr UD NIURKA 17.5 mls/hr Administration Protocol 25 MCG/HR Dextrose 250 mls @ 0 mls/hr 09/05/24 05:29 09/07/24 16:24 Dextrose 10%-Water IV Infused .Q0M PRN Infusion HYPOGLYCEMIA Protocol As Directed Sodium Chloride 250 mls @ 15 mls/hr 09/05/24 06:03 09/07/24 19:30 IV 0 mls/hr .[id number] PRN Infusion Saline Flush Sodium Chloride 250 mls @ 15 mls/hr 09/05/24 06:03 IV .[id number] PRN Additional IVPB Infusion Piperacillin Sod/Tazobactam 50 mls @ 12.5 mls/hr 09/05/24 09:55 09/09/24 10:47 Sod 3.375 gm/ Sodium Chloride IV Infused Q8 NIURKA Infusion Midazolam HCl 50 mg/ Sodium 100 mls @ 2 mls/hr 09/07/24 10:10 09/09/24 10:00 Chloride CONT INF 2 mg/hr .Q50H NIURKA 4 mls/hr Titration Protocol 1 MG/HR Pantoprazole Sodium 80 mg/ 100 mls @ 10 mls/hr 09/07/24 11:30 09/09/24 08:23 Sodium Chloride CONT INF 10 mls/hr Q10H NIURKA Infusion Vancomycin IV-PHARMACY TO DOSE 500 mls @ 250 mls/hr 09/07/24 10:33 1 each/ Sodium Chloride IV X1 PRN Rx to Dose Protocol Enteral Nutritional Formula 1,000 mls @ 20 mls/hr 09/08/24 09:55 09/09/24 10:48 Vital Af 1.2 Ryan Liquid GT Infused .Q48H NIURKA Infusion Vancomycin HCl 1,000 mg in 200 mls @ 200 mls/hr 09/08/24 23:00 09/09/24 11:56 Vancomycin IV Infused Q12H NIURKA Infusion Losartan Potassium 50 mg 09/05/24 22:00 09/06/24 21:04 Losartan Potassium 50 Mg Tablet GT Not Given QHS NIURKA Protocol Polyethylene Glycol 8.5 gm 09/05/24 07:43 Polyethylene Glycol 3350 17 Gm Packet GT Q48H PRN constipation Sodium Chloride 10 - 40 ml 09/05/24 06:03 09/09/24 05:06 0.9% Saline Lock 10 Ml Syringe IV 10 ml UD PRN Administration SALINE FLUSH Sotalol HCl 80 mg 09/05/24 10:00 09/09/24 10:37 Sotalol Hydrochloride 80 Mg Tablet GT 80 mg BID NIURKA Administration Protocol Tamsulosin HCl 0.4 mg 09/05/24 10:00 09/09/24 08:22 Tamsulosin Hcl 0.4 Mg Capsule PO Not Given BID [facility] Vancomycin Protocol 1 lab 09/10/24 09:30 Vancomycin Trough/Random Due 09/10/24 11:30 DAILY [facility] Venlafaxine HCl 75 mg 09/05/24 10:00 09/09/24 08:22 Venlafaxine Xr 75 Mg Capsule PO Not Given DAILY [facility] PFSH Medical History 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 Wears glasses Cancer Depression Claustrophobia Anxiety Alcohol use Redness of skin Uses crutches Arthritis Bladder disease Back pain History of edema History of diverticulitis Post-polio syndrome Non-smoker BiPAP (biphasic positive airway pressure) dependence History of CHF (congestive heart failure) On home oxygen therapy History of pain when walking History of stress test History of echocardiogram Chronic respiratory failure with hypoxia and hypercapnia On mechanically assisted ventilation Post-poliomyelitis syndrome Acute on chronic respiratory failure with hypoxia and hypercapnia Hypertension Lumbar radicular pain Degenerative scoliosis Scoliosis Segmental dysfunction of thoracic region Home Medications ?Medication ?Instructions ?Recorded ?Last Taken ?Type tamsulosin 0.4 mg capsule 0.4 mg PO BID prostate 02/03/20 08/09/24 History venlafaxine 75 mg capsule,extended 75 mg PO DAILY MOOD 05/31/22 08/09/24 History release 24 hr cyanocobalamin (vitamin B-12) 500 500 mcg PO DAILY supplement 07/10/24 07/28/24 History mcg tablet losartan 50 mg tablet 50 mg PO QHS BP #0 tabs 07/28/24 Unknown Rx acetaminophen 500 mg tablet 1,000 mg (2 x 500 mg) PO QHS #0 08/18/24 Unknown Rx tabs fluticasone propionate 50 1 spray NASAL BID 30 days #16 grams 08/18/24 Unknown Rx mcg/actuation nasal spray,suspension omeprazole 40 mg capsule,delayed 40 mg PO QDAY 30 days #30 caps 08/21/24 Unknown Rx release polyethylene glycol 3350 17 8.5 g PO .COMPLEX PRN constipation 09/02/24 Unknown History gram/dose oral powder (Miralax) apixaban 5 mg tablet (Eliquis) 5 mg PO BID #180 tabs 09/04/24 Unknown Rx sotalol 80 mg tablet 80 mg PO BID #180 tabs 09/04/24 Unknown Rx Allergy/AdvReac Type Severity Reaction Status Date / Time metronidazole (From Flagyl) AdvReac Nausea/Vom/ Verified 09/04/24 23:42 Diarrhea Family History Father Myocardial infarction Heart disease Mother Shy-Drager syndrome Other CVA (cerebral vascular accident) Surgical History History of selective injection of anesthetic agent around lumbar nerve root Hx of lithotripsy History of cardiac catheterization Hx of cystoscopy H/O adenoidectomy History of uvulectomy Hip fracture, right History of open reduction and internal fixation (ORIF) procedure Right tibial fracture H/O spinal fusion Social History household members: spouse housing: house Smoking Status: Never smoker substance use type: does not use Review of Systems (Anesthesia) ROS Narrative System reviewed and no additional complaints, except as documented.
--- NOTE | 2024-09-09 13:50 | FEM_PTH ---
PATIENT: BERNARDA JOSEPH LOC: [facility] U#:[id number] AGE/SX: 79/M ROOM: [facility] RE09/05/[address]: Dr. Familia Michel MD : 1945 BED: 1 DIS: 09/22/2024 SPEC #: [id number] RECD: 09/09/24 18:17 STATUS: FABI REQ #: [id number] TADEO: 09/09/24 13:[address]: Burt Quinones DEPT: SURGICAL PATHOLOGY RECD BY: Troy Calero ENTERED: 09/10/24 08:48 SP TYPE: FEM HEAD OTHR DR: MD Dr. Gera Dent MD Dr. Achintya Singh, MD Dr. Bruce Arthur, MD Dr. Derek Brown, DO Dr. David P Myers, MD Dr. Douglas Raber, MD Dr. Edward Matheis, MD Dr. Gautam Baskaran, MD Dr. Yordanos Habtegebriel, MD Dr. Hemant Dand, MD Dr. Jose Ochoa, MD Dr. Justin Wong, MD Dr. Kimber Foust, MD Dr. Lamia Aljundi, MD Dr. Marisa Magana, MD Dr. Nicholas F Kotsonis, MD Dr. Pritam Ghosh, MD Dr. Pavan Irukulla, MD Dr. Raymond W Acus III, MD Dr. Saad Farooqi, MD Dr. Sukhdeep Dhesi, DO Dr. Sujoy Gill, MD Dr. Soleyah Groves, MD Dr. Timothy Fernstrom, DO Dr. Vikram Anand, MD Dr. William Haden, MD Tissues: A - Femoral region, NOS Procedures: Decalcification bone/plaque Surgery Specimen Level V Comments: @ Ordering doctor for DEC edited from to @ by FREDDY at 09/10/24 0848 @ Ordering doctor for SUV edited from to @ by FREDDY at 09/10/24 0848 @ Submitting doctor edited from to DR.JBORRU Zheng by FREDDY at 09/10/24 0848 HEADER OPERATION: Left hemiarthroplasty, hip PRE-OP DIAGNOSIS: Closed fracture of neck of left femur TISSUE SUBMITTED: A- Femoral head left hip MICROSCOPIC DIAGNOSIS A. Left hip, femoral head, fracture, hemiarthroplasty: * Articular bone with thinned trabeculae and fatty marrow spaces with hemorrhage. MICROSCOPIC DESCRIPTION Slides are reviewed. GROSS DESCRIPTION A. Received in formalin in a container labeled with the patient's name, date of , and left femoral head is a 5.3 x 5.3 x 4.8 cm femoral head with minimal attached shaggy and hemorrhagic femoral neck measuring approximately 1.0 cm in length by 3.3 cm in diameter. The cortical surface is predominantly smooth and unremarkable. It is quadrisected to reveal firm and focally hemorrhagic surfaces. Received in the same container are multiple firm, irregular, and hemorrhagic fragments of possible femoral neck measuring 5.2 x 4.5 x 2.8 cm in aggregate. [employer] sections are submitted in A1 following decalcification. [facility] 09-10-2024 CPT:52259,[id number]
--- NOTE | 2024-09-09 16:10 | OP.PCM_ITS ---
Operative Report (Standard) Operative Information Date of Procedure: 09/09/24 Pre-Operative Diagnosis: Left femoral neck fracture Post-Operative Diagnosis: Same Surgery/Procedure Performed: Left hip hemiarthroplasty care aide: Yes Production Lead: Parag Mead Tasks completed by emergency medicine physician assistant: Opening & closing and Implanting device Type of Anesthesia: General RN Documented Start/Stop Times: Operation Date: 09/09/24 13:50 Case Time Anesthesia Start 09/09/24 14:29 Into Room 09/09/24 14:29 Procedure Start 09/09/24 14:55 Procedure End 09/09/24 15:57 Procedure Start Time: 14:55 Procedure Stop Time: 15:57 Select all DRAINS/GRAFTS/IMPLANTS that apply: Prosthetic device Prosthetic device details: [place] Accolade 2 bipolar hemiarthroplasty Estimated Blood Loss: 150 Specimen collected: Yes Description of specimen(s) removed: Femoral head Description of surgery: Preoperative diagnosis: Left hip femoral neck fracture displaced Postoperative diagnosis: Same Procedure: Left hip hemiarthroplasty Implants: [place] Accolade II stem size 7 132 degree neck angle 0 neck length 54 mm outer diameter bipolar head Anesthesia: General l EBL: 150 cc Complications: None Condition: Stable to PACU Indication for procedure: This is a 79-year-old male patient who 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 plans for definitive hemiarthroplasty were discussed with his and a consent was signed and placed in the chart including risks benefits and alternatives of the procedure were reviewed with the patient including risk of bleeding infection nerve artery tissue damage need for further surgery continue pain postoperative hip precaution restrictions leg length discrepancy and dislocation. Procedure: Patient was met in the preoperative holding area once again the operative extremity was identified by both patient and physician and was marked. Patient was met by anesthesia and brought to the operating room where anesthesia was started . The patient was then positioned in the lateral decubitus position on a well-padded pegboard with an axillary roll. All bony prominences were checked and padded. The patient was prepped and draped in the usual sterile fashion. A timeout was called to ensure the proper patient procedure and extremity were being contemplated. Anatomic landmarks were palpated and marked for a standard posterior lateral approach. A timeout was called to ensure the proper patient procedure and extremity were being contemplated. A 10 blade scalpel was used to make a posterior incision through the skin and subcutaneous tissue. In retractors were used and electrocautery was used to maintain meticulous hemostasis and dissect full-thickness flaps until the gluteal fascia was reached. The gluteal fascia was incised in line with the gluteal fibers. The bursal tissue was then freed from the underside and a Charnley retractor was placed. The fatpad was elevated off of the external rotators with electrocautery and the external rotators were dissected off of the greater trochanter including the piriformis and were tagged with #1 Ethibond for later repair. The joint capsule opened with posterior trapdoor technique. A femoral neck cutting guide was used to bobby the neck with a Bovie and an oscillating saw was used to complete the femoral neck cut. the fracture was visualized and with the use of a corkscrew and a skid the femoral head was removed and sized. We then trialed with the matching sizes . Hohmann was placed around the lesser trochanter. A femoral elevator was used. As well as a pointed wide Hohmann around the lesser trochanter and a Hohmann to help retract the gl uteus medius. A box chisel was used to remove excess lateral neck followed by a canal finder and a lateralizing reamer. This was followed by sequential broaches. Attention was made of the version within the canal. Once the final broach was seated we then trialed and reduced the hip it was determined that a 132 degree neck angle with a 0 neck length was the appropriate size. We then checked stability with shuck testing as well as flexion and interminal rotation then proceeded with hip extension and checked leg lengths at the knees and heels. At this point trials were removed. The femoral stem was inserted. We re-trialed and then proceeded to impact the femoral head onto the Yeyo taper. We then surgically reduce the hip check stability again and leg lengths and were satisfied. irricept rinse was allowed to sit for 1 minutes while everyone changed their gloves. Thorough irrigation was performed. Followed by closure of the external rotators with #2 FiberWire followed by closure of gluteal fascia with #1 Ethibond. 0 Vicryl fat stitches and 2-0 Vicryl subcutaneous stitches and pia in the skin. Dressing was applied in the form of silverlon dressing and an abduction pillow was placed. Patient tolerated the procedure well there was no intraoperative complications all counts were correct and the patient was brought back to the PACU in stable condition Surgical Findings: Displaced femoral neck fracture left Complications Complications: No
--- NOTE | 2024-09-09 16:26 | PCM.POST.ANE ---
Anesthesia: Postop Eval I Current Vital Signs Temperature: 97.4 F Pulse Rate: 75 Blood Pressure: 128/95 Respiratory Rate: 12 Pulse Ox: 98 Oxygen Delivery Method: Mechanical Ventilator Fraction of Inspired Oxygen (FIO2): 60 EtCo2 - Document during CPR and with ROSC: 35 Assessment Airway patent: Yes Spontaneous unlabored respirations: No Mental status: Unresponsive nausea: No Vomiting: No Anesthesia Complication: No Fluid Hydration Crystalloid volume administer (ml): 500 Total IV fluid infused: 500 Progress Note Anesthesia document: Postop Eval 1 completed: Yes
[2024-09-09] MEDS: Midazolam 50 MG in 0.9% Normal Saline (100mL Bag) 90 ML CONT INF (16:45)
--- NOTE | 2024-09-09 16:55 | RAD_ITS ---
PROCEDURE: HIP MIN 2 VIEWS (PORTABLE) 09/09/2024 REASON FOR EXAM: POST OP ICU TECHNIQUE: Two views of the left hip COMPARISON: Pelvic radiographs 09/05/2024 FINDINGS: See below. RAD/Hip Min 2 Views (Portable) IMPRESSION: Interval postoperative changes from left total hip arthroplasty. No immediate hardware complication. Correlate for desired positioning of the acetabular cup. Stable postoperative changes of the right proximal femur. Degenerative changes of the sacroiliac joints. Phleboliths and radiotherapy beads project over the pelvis. Reading Location: [id number]
[2024-09-09] MEDS: Calcium Carbonate 500 MG Tablet PO (18:52)
[2024-09-09 19:21] LABS: Bedside Glucose 96 mg/dL (74-106)
[2024-09-10] VITALS (64 sets, daily range): BP systolic 65–167; BP diastolic 33–99; PULSE 57–105; RESP 14–36; TEMP 36.9–38.7; O2SAT 69–100; BMI 26.0
[2024-09-10] MEDS: 0.9% Saline Lock 10 ML Syringe IV ×3 (00:06→05:41)
[2024-09-10] MEDS: Acetaminophen 650 MG/20 ML UDC GT ×3 (00:39→23:00)
[2024-09-10] MEDS: fentaNYL drip 100 ML 12.5 MCG CONT INF ×2 (01:35→18:14)
[2024-09-10 01:59] LABS: Bedside Glucose 117 mg/dL (74-106)
--- NOTE | 2024-09-10 03:00 | RAD_ITS ---
PROCEDURE: CHEST 1 VIEW (PORTABLE) 09/10/2024 REASON FOR EXAM: ETT VALIDATION TECHNIQUE: Frontal view of the chest. COMPARISON: 09/09/2024 at 05:23 FINDINGS: A right PICC, endotracheal tube and nasogastric tube again identified not significantly changed in appearance again with the tip of the nasogastric tube below the diaphragms extending off the inferior edge of the film. Marked scoliosis with deformity of the chest. No significant interval change in appearance of the lungs or cardiac silhouette. RAD/Chest 1 View (Portable) IMPRESSION: No significant interval change as above. Reading Location: [id number]
[2024-09-10] MEDS: LACTATED RINGERS 500 ML 999 ML IV (03:15)
[2024-09-10 03:31] LABS: Allen Test Positive; Base Excess 2 mmol/L (-2 to +2); Bicarbonate 27.6 mmol/L (22-26); Blood Gas Specimen Type ART; Mode AC; O2 Delivery Device Adult Vent; PEEP 5; PO2 81 mmHG (75-100); RR 14; SITE R Radial; SO2 95 % (95-99); Total Carbon Dioxide 29 mmol/L; pCO2 52.3 mmHg (35-45); pH 7.33 (7.35-7.45)
[2024-09-10] MEDS: Piperacil/Tazobactam 3.375 GM in 0.9% Normal Saline (50mL MB+) 50 ML IV ×3 (05:41→21:10)
[2024-09-10 06:03] LABS: Absolute Lymphocyte Count 0.66 X10^3/uL (0.83-4.51); Absolute Neutrophil Count 9.7 X10^3/uL (2.0-7.7); Basophil# 0.08 X10^3/uL; Basophil% 0.6 % (0-1); Eosinophil# 0.23 X10^3/uL; Eosinophils% 1.8 % (0-5); Hematocrit 34.6 % (40-54); Hemoglobin 11.5 g/dL (13.0-16.5); Lymphocyte # 0.66 X10^3/ul (0.83-4.51); Lymphocyte % 5.3 % (19-41); Mean Corp Hgb Conc 33.2 g/dL (32-36); Mean Corpuscular Hgb 30.8 pg (27.0-32.0); Mean Corpuscular Volume 92.8 fL (80-94); Mean Platelet Vol. 9.9 fl (6.2-12.0); Monocyte% 13.7 % (0-10); NRBC Flagged by Analyzer 0 % (0-5); Neutrophil # 9.67 X10^3/uL (2.7-7.7); Neutrophil % 77.8 % (47-70); POSITIVE DIFFERENTIAL YES; Platelet Count 231 K/mm3 (150-450); RBC Distribution Width CV 14.5 % (11.6-14.6); RBC Distribution Width SD 49.2 fl (35.1-43.9); Red Blood Count 3.73 M/mm3 (4.6-6.2); White Blood Count 12.4 K/mm3 (4.4-11.0)
[2024-09-10 06:04] LABS: Differential Indicated SCAN CRITERIA MET
[2024-09-10 06:44] LABS: Anion Gap 11 (5-15); BUN 14 mg/dL (4-19); BUN/Creat Ratio 13.7 RATIO (10-20); Calcium,Total 8.2 mg/dL (7.6-11.0); Carbon Dioxide 25.5 mmol/L (21.0-32.0); Chloride 107 mmol/L (98-108); Creatinine, Serum 1.04 mg/dL (0.70-1.20); EST Glomerular Filtration Rate 74 (>60); Estimated Creatinine Clearance 49.81 ml/min (50-250); Glucose 94 mg/dL (70-99); Potassium 4.1 mmol/L (3.3-5.1); Sodium Level 143 mmol/L (133-145)
[2024-09-10 06:46] LABS: Differential Comment SCANNED
[2024-09-10] MEDS: CHLORHEXIDINE GLUC 2% CLOTH 1 EACH TOWELETTE TOPICAL (07:47)
[2024-09-10] MEDS: Cyanocobalamin 500 MCG Tablet GT (07:47)
[2024-09-10] MEDS: APIXABAN 2.5 MG TABLET (WCH) PO ×2 (07:47→21:08)
[2024-09-10] MEDS: Calcium Carbonate 500 MG Tablet PO ×3 (07:47→17:22)
[2024-09-10] MEDS: Chlorhexidine 15 ML PO ×2 (08:13→21:21)
--- NOTE | 2024-09-10 09:35 | PN.HOSP_ITS ---
Subjective Subjective Intubated and sedated had surgery yesterday. Overnight had some hypotension and spiked a temp to be recultured he was on broad-spectrum antibiotics. He did have a leukocytosis this morning likely reactive to surgery we will continue with his antibiotics Objective Data Objective Data Vital Signs: Vital Signs Temp Pulse Resp BP Pulse Ox O2 Del Method O2 Flow Rate 100.0 F H 77 14 86/48 L 98 Mechanical Ventilator 40 09/10/24 09:00 09/10/24 09:22 09/10/24 09:22 09/10/24 09:00 09/10/24 09:22 09/10/24 09:00 09/09/24 12:35 FiO2 35 09/10/24 09:22 Oxygen Flow Rate (L/min) 40 Oxygen Delivery Method Mechanical Ventilator Weight: 151 lb 10.848 oz Body Mass Index (BMI) 26.0 Intake & Output: Intake and Output for Last 24 Hours 09/09/24 09/10/24 09/11/24 03:59 03:59 03:59 Intake Total 2923.75 / 2945.25 1756.92 / 1756.92 62.31 / 62.31 Output Total 5025 / 5025 2049 / 2049 80 / 80 Balance -2101.25 / -2079.75 -293.08 / -293.08 -17.69 / -17.69 Lab / Micro Data 09/10/24 05:40 09/10/24 05:40 Labs: Laboratory Results - last 24 hr 09/09/24 19:04: POC Glucose 96 09/10/24 01:39: POC Glucose 117 H 09/10/24 05:40: WBC 12.4 H, RBC 3.73 L, Hgb 11.5 L, Hct 34.6 L, MCV 92.8, MCH 30.8, MCHC 33.2, RDW Std Deviation 49.2 H, RDW Coeff of Larry 14.5, Plt Count 231, MPV 9.9, Immature Gran % (Auto) 0.800, Neut % (Auto) 77.8 H, Lymph % (Auto) 5.3 L, [place] % (Auto) 13.7 H, Eos % (Auto) 1.8, Baso % (Auto) 0.6, Absolute Neuts (auto) 9.7 H, Absolute Lymphs (auto) 0.66 L, Nucleated RBC % 0, Differential Comment SCANNED, Sodium 143, Potassium 4.1, Chloride 107, Carbon Dioxide 25.5, Anion Gap 11, BUN 14, Creatinine 1.04, Estim Creat Clear Calc 49.81 L, Est GFR (MDRD) Non-Af 74, BUN/Creatinine Ratio 13.7, Glucose 94, Calcium 8.2 Micro: Microbiology 09/05/24 02:46 Blood Culture (Wb) - Anticubital Left Blood Culture - Final No growth in 5 days. 09/05/24 03:00 Blood Culture (Wb) - Left Hand Blood Culture - Final No growth in 5 days. 09/05/24 04:30 Sputum, Induced/[place]ukens Gram Stain - Final 09/05/24 04:30 Sputum, Induced/[place]ukens Respiratory Culture - Final Mixed normal respiratory rogelio. No Streptococcus pneumoniae, beta-hemolytic Streptococcus or Staphylococcus aureus isolated. 09/05/24 01:00 Urine, Clean Catch Urine Culture - Final Staphylococcus epidermidis ABG Data ABG results: ABG 09/10/24 03:26 Specimen Type ART Sample Site R Radial pH 7.33 L Bicarbonate Actual 27.6 H Total CO2 29 Base Excess 2 O2 Saturation 95 O2 % 40.0 ABG pCO2 52.3 H ABG pO2 81 Stephane Test Positive Respiration Rate 14 O2 Delivery Device Adult Vent Vent Mode AC Tidal Volume 400.0 POC PEEP 5 Radiography Diagnostic Testing: Radiology Impression Hip X-Ray 09/09/24 16:55 IMPRESSION: Interval postoperative changes from left total hip arthroplasty. No immediate hardware complication. Correlate for desired positioning of the acetabular cup. Stable postoperative changes of the right proximal femur. Degenerative changes of the sacroiliac joints. Phleboliths and radiotherapy beads project over the pelvis. Reading Location: [id number] Chest X-Ray 09/10/24 03:00 IMPRESSION: No significant interval change as above. Reading Location: [id number] Physical Exam Const General Appearance: intubated and patient mechanically ventilated HEENT normocephalic Eyes PERRL and conjunctivae normal Neck supple and no JVD Resp normal respiratory effort, no retractions and no use of accessory muscles Auscultation: Negative for crackles, rales, rhonchi or wheezes Cardio regular rate, regular rhythm, S1 normal heart sound, S2 normal heart sound and no murmurs GI soft to palpation and non-distended; Negative for hepatosplenomegaly Extremity no clubbing, cyanosis or edema Skin no rashes or lesions noted Neuro Sensorium / Orientation: sedated on vent Psych Appearance: intubated Assessment & Plan Assessment/Plan (1) Closed fracture of neck of left femur: QUALIFIERS: Encounter type: initial encounter Qualified Code(s): S72.002A - Fracture of unspecified part of neck of left femur, initial encounter for closed fracture PLAN: Plan 1. Acute on chronic respiratory failure after a mechanical fall leading to left femoral neck fracture status postrepair 09/09/2024/possible pneumonia ? Had a mechanical fall at home and on arrival to the ER had to be intubated due to rising pCO2 and declining mental status ? Initially he was set to be transferred to [facility] for orthopedic surgery however this was canceled due to him needing to be intubated and sent to the ICU, we attempted to transfer last evening however they refused they do not except ICU to ICU transfers ? Continue with critical care management ? 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 Appreciate hospice music therapy assistance ? Continue with empiric Zosyn, ICU added vancomycin ? Recultured due to spiking temp overnight 2. A-fib/essential HTN/HLD ? Resume his home rate control medications ? Will hold his Eliquis as he will need surgery at some point ? Continue with his home blood pressure medications ? Will monitor make adjustments as necessary ? Echo on 07/23/2024 EF of 55% with a PASP of 35 mmHg 3. Anxiety/depression ? Stable ? Continue Effexor 4. GERD ? Stable ? Continue with PPI ? H&H is stabilized, he does not have a significant GI bleed DVT: Lovenox Charges/Coding Visit Charges Inpatient E&M: 76130 Subs Hosp L2
--- NOTE | 2024-09-10 11:19 | PN.CC_ITS ---
Objective Data Objective Data Vital Signs: Vital Signs Last response 3 Temperature 37.6 C H 09/10/24 10:00 Temperature Source Core 09/10/24 10:00 Pulse Rate 83 09/10/24 10:55 Pulse Strength Normal (2+) 09/10/24 08:07 Respiratory Rate 18 09/10/24 10:55 Respiratory Effort Mechanically Ventilated 09/10/24 08:00 Respiratory Depth Normal 09/10/24 08:00 Respiratory Pattern Normal 09/10/24 10:55 Blood Pressure 97/50 L 09/10/24 10:00 Blood Pressure Mean 65 09/10/24 10:00 Blood Pressure Source Monitor 09/10/24 10:00 Blood Pressure Position Semi-Fowlers 09/10/24 10:00 Blood Pressure Location Left Arm 09/10/24 10:00 Pulse Ox 95 09/10/24 10:55 Oxygen Delivery Method Mechanical Ventilator 09/10/24 10:00 Oxygen Flow Rate (L/min) 40 09/09/24 12:35 Fraction of Inspired Oxygen (FIO2) 35 09/10/24 10:55 EtCo2 - Document during CPR and with ROSC 35 09/09/24 16:27 I&O: I&O Last 24 Hours 3 09/09/24 09/09/24 09/10/24 11:59 23:59 11:59 Intake Total 1159.58 / 1603.74 425.16 / 1603.74 928.92 / 928.92 Output Total 1275 / 2775 1200 / 2775 380 / 380 Balance -115.42 / -1171.26 -774.84 / -1171.26 548.92 / 548.92 I&O: Total Stay 3 09/04/24 23:32 thru 09/10/24 10:03 Intake Total 54840.13 Output Total 9130 Balance 6751.13 Current Meds Ordered / Administered: Current meds ordered / Administered 3 Generic Name Dose Route Start Last Admin Trade Name Freq PRN Reason Stop Dose Admin Acetaminophen 650 mg 09/05/24 13:55 09/10/24 06:43 Acetaminophen 650 Mg/20 Ml Udc GT 650 mg Q6H PRN PRN Administration Pain 1-10 or Fever Albuterol Sulfate 2.5 mg 09/05/24 05:29 09/08/24 09:14 Albuterol 2.5 Mg/3 Ml Vial.Neb. INHALATION 2.5 mg Q2H PRN PRN Administration SOB &/OR WHEEZING Apixaban 2.5 mg 09/10/24 07:00 09/10/24 07:47 Apixaban 2.5 Mg Tablet ([facility]) PO 09/10/24 22:01 2.5 mg BID NIURKA Administration Apixaban 5 mg 09/11/24 22:00 Apixaban 5 Mg Tablet PO BID NIURKA Calcium Carbonate 500 mg 09/09/24 17:00 09/10/24 07:47 Calcium Carbonate 500 Mg Tablet PO 500 mg TIDCM NIURKA Administration Chlorhexidine Gluconate 1 each 09/06/24 10:00 09/10/24 07:47 Chlorhexidine Gluc 2% Cloth 1 Each [place] TOPICAL 1 each DAILY NIURKA Administration Chlorhexidine Gluconate 15 ml 09/06/24 10:00 09/10/24 08:13 Chlorhexidine 15 Ml PO 15 ml BID NIURKA Administration Cyanocobalamin 500 mcg 09/05/24 10:00 09/10/24 07:47 Cyanocobalamin 500 Mcg Tablet GT 500 mcg DAILY NIURKA Administration Glucagon 1 mg 09/05/24 05:29 Glucagon 1 Mg/Ml Syringe IM X1 PRN HYPOGLYCEMIA Protocol Fentanyl 100 mls @ 2.5 mls/hr 09/05/24 04:30 09/10/24 09:56 CONT INF 75 mcg/hr UD NIURKA 7.5 mls/hr Titration Protocol 25 MCG/HR Dextrose 250 mls @ 0 mls/hr 09/05/24 05:29 09/07/24 16:24 Dextrose 10%-Water IV Infused .Q0M PRN Infusion HYPOGLYCEMIA Protocol As Directed Sodium Chloride 250 mls @ 15 mls/hr 09/05/24 06:03 09/07/24 19:30 IV 0 mls/hr .[id number] PRN Infusion Saline Flush Sodium Chloride 250 mls @ 15 mls/hr 09/05/24 06:03 IV .[id number] PRN Additional IVPB Infusion Piperacillin Sod/Tazobactam 50 mls @ 12.5 mls/hr 09/05/24 09:55 09/10/24 09:55 Sod 3.375 gm/ Sodium Chloride IV Infused Q8 NIURKA Infusion Vancomycin IV-PHARMACY TO DOSE 500 mls @ 250 mls/hr 09/07/24 10:33 1 each/ Sodium Chloride IV X1 PRN Rx to Dose Protocol Enteral Nutritional Formula 1,000 mls @ 20 mls/hr 09/08/24 09:55 09/09/24 10:48 Vital Af 1.2 Ryan Liquid GT Infused .Q48H NIURKA Infusion Vancomycin HCl 1,000 mg in 200 mls @ 200 mls/hr 09/08/24 23:00 09/10/24 00:26 Vancomycin IV Infused Q12H NIURKA Infusion Pantoprazole Sodium 40 mg/ 110 mls @ 330 mls/hr 09/10/24 10:00 Sodium Chloride IV Q24 NIURKA Losartan Potassium 50 mg 09/05/24 22:00 09/06/24 21:04 Losartan Potassium 50 Mg Tablet GT Not Given QHS [facility] Protocol Midazolam HCl 0.5 mg 09/10/24 11:16 Midazolam 2 Mg/2 Ml Syringe IV Q2H PRN PRN AGITATION Morphine Sulfate 2 mg 09/10/24 11:15 Morphine 2 Mg/Ml Syringe IV Q3H PRN PRN Pain Score 4-5 Polyethylene Glycol 8.5 gm 09/05/24 07:43 Polyethylene Glycol 3350 17 Gm Packet GT Q48H PRN constipation Sodium Chloride 10 - 40 ml 09/05/24 06:03 09/10/24 05:41 0.9% Saline Lock 10 Ml Syringe IV 30 ml UD PRN Administration SALINE FLUSH Sotalol HCl 80 mg 09/05/24 10:00 09/10/24 09:05 Sotalol Hydrochloride 80 Mg Tablet GT Not Given BID [facility] Protocol Tamsulosin HCl 0.4 mg 09/05/24 10:00 09/10/24 07:43 Tamsulosin Hcl 0.4 Mg Capsule PO Not Given BID [facility] Vancomycin Protocol 1 lab 09/10/24 09:30 09/10/24 10:12 Vancomycin Trough/Random Due MC 09/10/24 11:30 Not Given DAILY [facility] Venlafaxine HCl 75 mg 09/05/24 10:00 09/10/24 07:43 Venlafaxine Xr 75 Mg Capsule PO Not Given DAILY [facility] Lab / Micro Data 09/10/24 05:40 09/10/24 05:40 Labs: Laboratory Results - last 24 hr 09/09/24 19:04: POC Glucose 96 09/10/24 01:39: POC Glucose 117 H 09/10/24 05:40: WBC 12.4 H, RBC 3.73 L, Hgb 11.5 L, Hct 34.6 L, MCV 92.8, MCH 30.8, MCHC 33.2, RDW Std Deviation 49.2 H, RDW Coeff of Larry 14.5, Plt Count 231, MPV 9.9, Immature Gran % (Auto) 0.800, Neut % (Auto) 77.8 H, Lymph % (Auto) 5.3 L, [place] % (Auto) 13.7 H, Eos % (Auto) 1.8, Baso % (Auto) 0.6, Absolute Neuts (auto) 9.7 H, Absolute Lymphs (auto) 0.66 L, Nucleated RBC % 0, Differential Comment SCANNED, Sodium 143, Potassium 4.1, Chloride 107, Carbon Dioxide 25.5, Anion Gap 11, BUN 14, Creatinine 1.04, Estim Creat Clear Calc 49.81 L, Est GFR (MDRD) Non-Af 74, BUN/Creatinine Ratio 13.7, Glucose 94, Calcium 8.2 Micro: Microbiology 09/10/24 02:49 Sputum, Expectorated/Coughed Gram Stain - Final 09/05/24 02:46 Blood Culture (Wb) - Anticubital Left Blood Culture - Final No growth in 5 days. 09/05/24 03:00 Blood Culture (Wb) - Left Hand Blood Culture - Final No growth in 5 days. ABG Data ABG results: ABG 09/10/24 03:26 Specimen Type ART Sample Site R Radial pH 7.33 L Bicarbonate Actual 27.6 H Total CO2 29 Base Excess 2 O2 Saturation 95 O2 % 40.0 ABG pCO2 52.3 H ABG pO2 81 Stephane Test Positive Respiration Rate 14 O2 Delivery Device Adult Vent Vent Mode AC Tidal Volume 400.0 POC PEEP 5 Imaging Radiology Impression Hip X-Ray 09/09/24 16:55 IMPRESSION: Interval postoperative changes from left total hip arthroplasty. No immediate hardware complication. Correlate for desired positioning of the acetabular cup. Stable postoperative changes of the right proximal femur. Degenerative changes of the sacroiliac joints. Phleboliths and radiotherapy beads project over the pelvis. Reading Location: [id number] Chest X-Ray 09/10/24 03:00 IMPRESSION: No significant interval change as above. Reading Location: [facility] Assessment and Plan . Assessment and plan: Assessment and plan: 1. Resp Failure: acute on chronic. Hypoxemic/Hypercapnic. Hx of post-polio + kyphoscoliosis. CXR worse during admit. ? HCAP + volume overload. At current on minimal settings. 18/400/40/5--> Though VE increased overnight. Will proceed with SAT this am--> if awakens later will proceed with SBT. 2. Sedation: off propofol 2/2 hypotension. On fent and versed gtt. Holding at current. If does not awaken today-->continue to hold versed gtt overnight. prn pushes of morphine and versed ordered. 3. Shock: 2/2 sedation. Weaned off levophed after stopping propofol 72 hours ago. Hypotensive last night-->responded to IVFs. 4. HCAP: ?. infiltrates present though suspect volume. Does have secretions. On Vanc and zosyn. Sputum with mixed rogelio. 5. GI bleed: H/H stable. Continue PPI. 6. ? Volume Overload: CXR worse during admit. + 9L. Stopped IVFs/Added lasix 09/08. Excellent diuresis /. Lasix prn. 7. Hip fracture: POD #1. 8. FEN: TFs. 9. Afib: Back on eliuis. Continue sotalol. Rate controlled at current. 10. PX: On AC/PPI. 11. Fever: overnight. Cultures sent. No clear source. PICC line new. CXR stable. Urine clear. Will continue current antimicrobial regimen Steven Richardson MD Critical Care Time: 50 minutes The entirety of this encounter was done via Telemedicine Critical Care Time: The entirety of this encounter was done via Telemedicine Physical Exam Narrative intubated, sedated pupils:= ETT in place CV: RRR, No m Chest: Coarse BS, Good a/e Abd: soft, nt, +bs Ext: no c/e/c Skin: no rashes Subjective Subjective spiked temp. Was hypotensive--? BP improved with IVF bolus
[2024-09-10] MEDS: Pantoprazole Sodium 40 MG in 0.9% Normal Saline (100mL MB+) 100 ML 330 MG IV (11:38)
[2024-09-10] MEDS: Vancomycin Trough/Random Due 1 LAB MC ×2 (11:38→23:00)
[2024-09-10 12:03] LABS: Bedside Glucose 85 mg/dL (74-106)
[2024-09-10 12:16] LABS: AST(SGOT) 26 U/L (<=37); Alanine Aminotransfer ALT/SGPT 10 U/L (<=46); Albumin, Serum 2.7 g/dL (3.4-4.8); Alkaline Phosphatase 57 U/L (40-129); Bilirubin, Direct 0.45 mg/dL (0.00-0.30); Globulin 2.6 g/dL (2.2-4.2); Lipase 8 U/L (13-75); Protein, Total 5.3 g/dL (5.9-8.4); Total Bilirubin 0.87 mg/dL (0.00-1.30)
[2024-09-10 12:43] LABS: Vancomycin, Trough Level 22.2 ug/mL (5.0-15.0)
--- NOTE | 2024-09-10 12:50 | PCM.PN.ORT ---
Subjective Subjective Seen and examined. Patient intubated but awake. Objective Data Objective Data Vital Signs: Vital Signs Temp Pulse Resp BP Pulse Ox O2 Del Method O2 Flow Rate 100.7 F H 100 36 H 132/79 H 97 Mechanical Ventilator 40 09/10/24 12:00 09/10/24 12:39 09/10/24 12:41 09/10/24 12:00 09/10/24 12:39 09/10/24 12:00 09/09/24 12:35 FiO2 35 09/10/24 12:39 Oxygen Flow Rate (L/min) 40 Oxygen Delivery Method Mechanical Ventilator Weight: 151 lb 10.848 oz Body Mass Index (BMI) 26.0 Intake & Output: Intake and Output for Last 24 Hours 09/08/24 09/09/24 09/10/24 23:59 23:59 23:59 Intake Total 2440.55 / 2457.92 1584.74 / 1603.74 1086.94 / 1086.94 Output Total 4300 / 4300 2475 / 2775 430 / 430 Balance -1859.45 / -1842.08 -890.26 / -1171.26 656.94 / 656.94 Lab / Micro Data 09/10/24 05:40 09/10/24 05:40 Labs: Laboratory Results - last 24 hr 09/09/24 19:04: POC Glucose 96 09/10/24 01:39: POC Glucose 117 H 09/10/24 05:40: WBC 12.4 H, RBC 3.73 L, Hgb 11.5 L, Hct 34.6 L, MCV 92.8, MCH 30.8, MCHC 33.2, RDW Std Deviation 49.2 H, RDW Coeff of Larry 14.5, Plt Count 231, MPV 9.9, Immature Gran % (Auto) 0.800, Neut % (Auto) 77.8 H, Lymph % (Auto) 5.3 L, [place] % (Auto) 13.7 H, Eos % (Auto) 1.8, Baso % (Auto) 0.6, Absolute Neuts (auto) 9.7 H, Absolute Lymphs (auto) 0.66 L, Nucleated RBC % 0, Differential Comment SCANNED, Sodium 143, Potassium 4.1, Chloride 107, Carbon Dioxide 25.5, Anion Gap 11, BUN 14, Creatinine 1.04, Estim Creat Clear Calc 49.81 L, Est GFR (MDRD) Non-Af 74, BUN/Creatinine Ratio 13.7, Glucose 94, Calcium 8.2 09/10/24 11:35: Total Bilirubin 0.87, Direct Bilirubin 0.45 H, AST 26, ALT 10, Alkaline Phosphatase 57, Total Protein 5.3 L, Albumin 2.7 L, Globulin 2.6, Lipase 8 L, Vancomycin Trough 22.2 H 09/10/24 11:46: POC Glucose 85 Micro: Microbiology 09/10/24 02:49 Sputum, Expectorated/Coughed Gram Stain - Final 09/05/24 02:46 Blood Culture (Wb) - Anticubital Left Blood Culture - Final No growth in 5 days. 09/05/24 03:00 Blood Culture (Wb) - Left Hand Blood Culture - Final No growth in 5 days. 09/05/24 04:30 Sputum, Induced/Lukens Gram Stain - Final 09/05/24 04:30 Sputum, Induced/Lukens Respiratory Culture - Final Mixed normal respiratory rogelio. No Streptococcus pneumoniae, beta-hemolytic Streptococcus or Staphylococcus aureus isolated. 09/05/24 01:00 Urine, Clean Catch Urine Culture - Final Staphylococcus epidermidis ABG Data ABG results: ABG 09/10/24 03:26 Specimen Type ART Sample Site R Radial pH 7.33 L Bicarbonate Actual 27.6 H Total CO2 29 Base Excess 2 O2 Saturation 95 O2 % 40.0 ABG pCO2 52.3 H ABG pO2 81 Stephane Test Positive Respiration Rate 14 O2 Delivery Device Adult Vent Vent Mode AC Tidal Volume 400.0 POC PEEP 5 Radiography Diagnostic Testing: Radiology Impression Hip X-Ray 09/09/24 16:55 IMPRESSION: Interval postoperative changes from left total hip arthroplasty. No immediate hardware complication. Correlate for desired positioning of the acetabular cup. Stable postoperative changes of the right proximal femur. Degenerative changes of the sacroiliac joints. Phleboliths and radiotherapy beads project over the pelvis. Reading Location: [id number] Chest X-Ray 09/10/24 03:00 IMPRESSION: No significant interval change as above. Reading Location: [id number] Physical Exam Const Constitutional Narrative: Intubated the eyes open General Appearance: cooperative Extremity Extremity Narrative: Left hip dressing clean dry intact compartments soft he is able to extend his toe palpable pedal pulses Assessment & Plan Assessment/Plan (1) Closed fracture of neck of left femur: QUALIFIERS: Encounter type: initial encounter Qualified Code(s): S72.002A - Fracture of unspecified part of neck of left femur, initial encounter for closed fracture PLAN: Plan Postop day #1 left hip hemiarthroplasty PT OT weightbearing as tolerated with hip precautions Dressing to be left undisturbed for 7 days postop then should be removed and incision should be cleaned daily with antibacterial soap and warm water and change daily at that point [place] need to be removed 2 weeks postop Patient was resumed on his Eliquis today and will increase to 5 mg twice daily tomorrow
--- NOTE | 2024-09-10 12:55 | PCM.RX.CS ---
Consult Antibiotic Management Pharmacy has been consulted to manage selected antibiotic: Vancomycin Type of Intervention Type of Consult: Follow-up Labs Labs: Sodium 143 mmol/L (133-145) 09/10/24 05:40 Potassium 4.1 mmol/L (3.3-5.1) 09/10/24 05:40 Chloride 107 mmol/L (98-108) 09/10/24 05:40 Carbon Dioxide 25.5 mmol/L (21.0-32.0) 09/10/24 05:40 Anion Gap 11 (5-15) 09/10/24 05:40 BUN 14 mg/dL (4-19) 09/10/24 05:40 Creatinine 1.04 mg/dL (0.70-1.20) 09/10/24 05:40 Est GFR (MDRD) Non-Af 74 (>60) 09/10/24 05:40 BUN/Creatinine Ratio 13.7 RATIO (10-20) 09/10/24 05:40 Glucose 94 mg/dL (70-99) 09/10/24 05:40 Vancomycin Trough 22.2 ug/mL (5.0-15.0) H 09/10/24 11:35 Microbiology Microbiology: Microbiology 09/10/24 02:49 Sputum, Expectorated/Coughed Gram Stain - Final 09/05/24 02:46 Blood Culture (Wb) - Anticubital Left Blood Culture - Final No growth in 5 days. 09/05/24 03:00 Blood Culture (Wb) - Left Hand Blood Culture - Final No growth in 5 days. 09/05/24 04:30 Sputum, Induced/Lukens Gram Stain - Final 09/05/24 04:30 Sputum, Induced/Lukens Respiratory Culture - Final Mixed normal respiratory rogelio. No Streptococcus pneumoniae, beta-hemolytic Streptococcus or Staphylococcus aureus isolated. 09/05/24 01:00 Urine, Clean Catch Urine Culture - Final Staphylococcus epidermidis Goal Trough Goal Trough: 15-20 mcg/mL Pharmacy Plan for Drug Dosing Pharmacy Plan for Drug Dosing: VANCOMYCIN LEVEL RECEIVED Current Vancomycin Dose: 1000mg IV Q12hr Number of Doses Received: 3 (of current regimen) Vancomycin Level: 22.2 Hours Since Last Dose: 12hr Renal Function: SCr 1.04 Renal Function Trend: stable, but increased since start of vancomycin (SCr 0.74 09/07) Lab/Micro: Repeat cultures pending Vancomycin Plan/Comments: Patient had a trough drawn which resulted in a value of 22.2 (goal 15-20). patient's trough is above goal trough. Will hold subsequent doses of vancomycin and resume once trough is <20 per protocol. Pending Level: *RANDOM* level 09/10/24 @2300 Pharmacy Service will continue to monitor and adjust dosing as required.
[2024-09-10] MEDS: dexMEDEtomidine 400 MCG in 0.9% Normal Saline (100mL Bag) 96 ML 8.6 MCG CONT INF (13:00)
[2024-09-10] MEDS: Vital AF 1.2 Cal Liquid 1,000 ML 20 ML GT (13:30)
[2024-09-10] MEDS: Lactated Ringers 500 ML 999 ML IV (14:26)
[2024-09-10] MEDS: Midazolam 50 MG in 0.9% Normal Saline (100mL Bag) 90 ML CONT INF (15:15)
[2024-09-10] MEDS: Midazolam 2 MG/2 ML Syringe 0.5 MG IV (15:16)
[2024-09-10] MEDS: Norepinephrine 8 MG in 0.9% Normal Saline (250mL Bag) 242 ML 9.4 MG CONT INF (16:51)
[2024-09-10 17:43] LABS: Bedside Glucose 119 mg/dL (74-106)
[2024-09-10 23:24] LABS: Bedside Glucose 128 mg/dL (74-106)
[2024-09-11] VITALS (53 sets, daily range): BP systolic 82–171; BP diastolic 45–146; PULSE 51–96; RESP 18–32; TEMP 36.8–38.1; O2SAT 90–100; BMI 26.4
[2024-09-11 00:07] LABS: Vancomycin, Random Level 19.5 ug/mL (0.0-15.0)
--- NOTE | 2024-09-11 00:17 | PCM.RX.CS ---
Consult Antibiotic Management Pharmacy has been consulted to manage selected antibiotic: Vancomycin Type of Intervention Type of Consult: Follow-up Labs Labs: Sodium 143 mmol/L (133-145) 09/10/24 05:40 Potassium 4.1 mmol/L (3.3-5.1) 09/10/24 05:40 Chloride 107 mmol/L (98-108) 09/10/24 05:40 Carbon Dioxide 25.5 mmol/L (21.0-32.0) 09/10/24 05:40 Anion Gap 11 (5-15) 09/10/24 05:40 BUN 14 mg/dL (4-19) 09/10/24 05:40 Creatinine 1.04 mg/dL (0.70-1.20) 09/10/24 05:40 Est GFR (MDRD) Non-Af 74 (>60) 09/10/24 05:40 BUN/Creatinine Ratio 13.7 RATIO (10-20) 09/10/24 05:40 Glucose 94 mg/dL (70-99) 09/10/24 05:40 Vancomycin Trough 22.2 ug/mL (5.0-15.0) H 09/10/24 11:35 Random Vancomycin 19.5 ug/mL (0.0-15.0) H 09/10/24 23:00 Microbiology Microbiology: Microbiology 09/10/24 02:49 Sputum, Expectorated/Coughed Gram Stain - Final 09/05/24 02:46 Blood Culture (Wb) - Anticubital Left Blood Culture - Final No growth in 5 days. 09/05/24 03:00 Blood Culture (Wb) - Left Hand Blood Culture - Final No growth in 5 days. 09/05/24 04:30 Sputum, Induced/Lukens Gram Stain - Final 09/05/24 04:30 Sputum, Induced/Lukens Respiratory Culture - Final Mixed normal respiratory rogelio. No Streptococcus pneumoniae, beta-hemolytic Streptococcus or Staphylococcus aureus isolated. 09/05/24 01:00 Urine, Clean Catch Urine Culture - Final Staphylococcus epidermidis Dosing Weight Weight used for dosin.8 kg Estimated Creatinine Clearance Estimated Creatinine Clearance: 50 Goal Trough Goal Trough: 10-15 mcg/mL Pharmacy Plan for Drug Dosing Pharmacy Plan for Drug Dosing: Vancomycin random level of 19.5 was still above the target range of 10-15. Will continue to hold further doses, and another random vanco level will be drawn in twelve hours. Pharmacy Service will continue to monitor and adjust dosing as required. Follow-Up Labs Follow-Up Labs: Trough: Vancomycin (random) Date/Time Labs Ordered Labs to be done on [date and time ordered]: 09/11/24 @1100 (random)
[2024-09-11] MEDS: fentaNYL drip 100 ML 17.5 MCG CONT INF ×3 (00:58→23:52)
--- NOTE | 2024-09-11 03:55 | RAD_ITS ---
PROCEDURE: CHEST 1 VIEW (PORTABLE) 09/11/2024 REASON FOR EXAM: ETT VALIDATION TECHNIQUE: Frontal view of the chest. At 0 3: 51 COMPARISON: 09/10/2024 at 03:11 FINDINGS: Endotracheal tube appears satisfactory positioning, not significantly changed. Right PICC and nasogastric tube again noted. Scoliosis with deformity of the thorax. Deformity of the lung anatomy due to the scoliosis again seen. Difficult to exclude patchy perihilar opacities right lung, not significantly changed. Possible left base retrocardiac atelectasis, partial collapse, unchanged. RAD/Chest 1 View (Portable) IMPRESSION: Endotracheal tube appears satisfactory positioning, not significantly changed. Right PICC and nasogastric tube again noted. Scoliosis with deformity of the thorax. Deformity of the lung anatomy due to th e scoliosis again seen. Difficult to exclude patchy perihilar opacities right lung, not significantly changed. Possible left base retrocardiac atelectasis, partial collapse, unchanged. Reading Location: [id number]
[2024-09-11 04:33] LABS: Absolute Lymphocyte Count 0.76 X10^3/uL (0.83-4.51); Absolute Neutrophil Count 11.6 X10^3/uL (2.0-7.7); Basophil% 0.7 % (0-1); Eosinophil# 0.12 X10^3/uL; Eosinophils% 0.8 % (0-5); Hematocrit 29.2 % (40-54); Lymphocyte # 0.76 X10^3/ul (0.83-4.51); Lymphocyte % 5.2 % (19-41); Mean Corp Hgb Conc 34.2 g/dL (32-36); Mean Corpuscular Volume 90.4 fL (80-94); Mean Platelet Vol. 9.8 fl (6.2-12.0); Monocyte# 1.82 X10^3/uL; Monocyte% 12.5 % (0-10); NRBC Flagged by Analyzer 0 % (0-5); Neutrophil # 11.57 X10^3/uL (2.7-7.7); Neutrophil % 79.8 % (47-70); POSITIVE DIFFERENTIAL YES; Platelet Count 266 K/mm3 (150-450); RBC Distribution Width SD 46.6 fl (35.1-43.9); Red Blood Count 3.23 M/mm3 (4.6-6.2); White Blood Count 14.5 K/mm3 (4.4-11.0)
[2024-09-11 05:11] LABS: Differential Indicated SCAN CRITERIA MET
[2024-09-11 05:12] LABS: Differential Comment SCANNED
[2024-09-11 05:13] LABS: Allen Test Positive; Base Excess 1 mmol/L (-2 to +2); Blood Gas Specimen Type ART; Mode AC; O2 Delivery Device Adult Vent; PEEP 5; PO2 97 mmHG (75-100); RR 18; SITE L Radial; SO2 98 % (95-99); Total Carbon Dioxide 26 mmol/L; pCO2 34.4 mmHg (35-45); pH 7.47 (7.35-7.45)
[2024-09-11 05:15] LABS: Anion Gap 17 (5-15); BUN 24 mg/dL (4-19); BUN/Creat Ratio 14.3 RATIO (10-20); Calcium,Total 7.8 mg/dL (7.6-11.0); Chloride 105 mmol/L (98-108); Creatinine, Serum 1.67 mg/dL (0.70-1.20); EST Glomerular Filtration Rate 42 (>60); Estimated Creatinine Clearance 31.02 ml/min (50-250); Glucose 140 mg/dL (70-99); Potassium 3.2 mmol/L (3.3-5.1); Sodium Level 140 mmol/L (133-145)
[2024-09-11] MEDS: Piperacil/Tazobactam 3.375 GM in 0.9% Normal Saline (50mL MB+) 50 ML IV ×3 (06:25→21:20)
[2024-09-11 06:49] LABS: Bedside Glucose 139 mg/dL (74-106)
[2024-09-11] MEDS: Chlorhexidine 15 ML PO ×2 (08:31→21:13)
[2024-09-11] MEDS: Calcium Carbonate 500 MG Tablet PO ×3 (08:31→17:13)
[2024-09-11] MEDS: CHLORHEXIDINE GLUC 2% CLOTH 1 EACH TOWELETTE TOPICAL (08:31)
[2024-09-11] MEDS: Cyanocobalamin 500 MCG Tablet GT (08:32)
[2024-09-11] MEDS: Pantoprazole Sodium 40 MG in 0.9% Normal Saline (100mL MB+) 100 ML 330 MG IV (09:25)
--- NOTE | 2024-09-11 09:47 | PN.CC_ITS ---
Objective Data Objective Data Vital Signs: Vital Signs Last response 3 Temperature 37.4 C H 09/11/24 09:00 Temperature Source Core 09/11/24 09:00 Pulse Rate 79 09/11/24 09:00 Pulse Strength Normal (2+) 09/11/24 08:28 Respiratory Rate 18 09/11/24 09:00 Respiratory Effort Mechanically Ventilated 09/11/24 04:00 Respiratory Depth Normal 09/11/24 04:00 Respiratory Pattern Normal 09/11/24 07:15 Blood Pressure 107/62 09/11/24 09:00 Blood Pressure Mean 77 09/11/24 09:00 Blood Pressure Source Monitor 09/11/24 00:00 Blood Pressure Position Semi-Fowlers 09/11/24 07:00 Blood Pressure Location Left Arm 09/11/24 07:00 Pulse Ox 96 09/11/24 09:00 Oxygen Delivery Method Mechanical Ventilator 09/11/24 09:00 Oxygen Flow Rate (L/min) 40 09/09/24 12:35 Fraction of Inspired Oxygen (FIO2) 35 09/11/24 09:00 EtCo2 - Document during CPR and with ROSC 35 09/09/24 16:27 I&O: I&O Last 24 Hours 3 09/10/24 09/10/24 09/11/24 11:59 23:59 11:59 Intake Total 976.94 / 2314.54 1197.30 / 2314.54 628.87 / 628.87 Output Total 430 / 595 165 / 595 175 / 175 Balance 546.94 / 1719.54 1032.30 / 1719.54 453.87 / 453.87 I&O: Total Stay 3 09/04/24 23:32 thru 09/11/24 09:10 Intake Total 91914.32 Output Total 9520 Balance 8235.32 Current Meds Ordered / Administered: Current meds ordered / Administered 3 Generic Name Dose Route Start Last Admin Trade Name Freq PRN Reason Stop Dose Admin Acetaminophen 650 mg 09/05/24 13:55 09/10/24 23:00 Acetaminophen 650 Mg/20 Ml Udc GT 650 mg Q6H PRN PRN Administration Pain 1-10 or Fever Albuterol Sulfate 2.5 mg 09/05/24 05:29 09/08/24 09:14 Albuterol 2.5 Mg/3 Ml Vial.Neb. INHALATION 2.5 mg Q2H PRN PRN Administration SOB &/OR WHEEZING Apixaban 5 mg 09/11/24 22:00 Apixaban 5 Mg Tablet PO BID NIURKA Calcium Carbonate 500 mg 09/09/24 17:00 09/11/24 08:31 Calcium Carbonate 500 Mg Tablet PO 500 mg TIDCM NIURKA Administration Chlorhexidine Gluconate 1 each 09/06/24 10:00 09/11/24 08:31 Chlorhexidine Gluc 2% Cloth 1 Each [place] TOPICAL 1 each DAILY NIURKA Administration Chlorhexidine Gluconate 15 ml 09/06/24 10:00 09/11/24 08:31 Chlorhexidine 15 Ml PO 15 ml BID NIURKA Administration Cyanocobalamin 500 mcg 09/05/24 10:00 09/11/24 08:32 Cyanocobalamin 500 Mcg Tablet GT 500 mcg DAILY NIURKA Administration Glucagon 1 mg 09/05/24 05:29 Glucagon 1 Mg/Ml Syringe IM X1 PRN HYPOGLYCEMIA Protocol Fentanyl 100 mls @ 2.5 mls/hr 09/05/24 04:30 09/11/24 09:10 CONT INF Infused UD NIURKA Titration Protocol 25 MCG/HR Dextrose 250 mls @ 0 mls/hr 09/05/24 05:29 09/07/24 16:24 Dextrose 10%-Water IV Infused .Q0M PRN Infusion HYPOGLYCEMIA Protocol As Directed Sodium Chloride 250 mls @ 15 mls/hr 09/05/24 06:03 09/07/24 19:30 IV 0 mls/hr .[id number] PRN Infusion Saline Flush Sodium Chloride 250 mls @ 15 mls/hr 09/05/24 06:03 IV .[id number] PRN Additional IVPB Infusion Piperacillin Sod/Tazobactam 50 mls @ 12.5 mls/hr 09/05/24 09:55 09/11/24 06:25 Sod 3.375 gm/ Sodium Chloride IV 12.5 mls/hr Q8 NIURKA Administration Vancomycin IV-PHARMACY TO DOSE 500 mls @ 250 mls/hr 09/07/24 10:33 1 each/ Sodium Chloride IV X1 PRN Rx to Dose Protocol Enteral Nutritional Formula 1,000 mls @ 20 mls/hr 09/08/24 09:55 09/10/24 13:30 Vital Af 1.2 Ryan Liquid GT 20 mls/hr .Q48H NIURKA Administration Pantoprazole Sodium 40 mg/ 110 mls @ 330 mls/hr 09/10/24 10:00 09/11/24 09:25 Sodium Chloride IV 330 mls/hr Q24 NIURKA Administration Midazolam HCl 50 mg/ Sodium 100 mls @ 2 mls/hr 09/10/24 15:00 09/11/24 07:00 Chloride CONT INF 1 mg/hr .Q50H NIURKA 2 mls/hr Titration Protocol 1 MG/HR Norepinephrine Bitartrate 8 mg 250 mls @ 9.375 mls/hr 09/10/24 16:15 09/11/24 09:00 / Sodium Chloride CONT INF 5 mcg/min .[id number] NIURKA 9.4 mls/hr Titration Protocol 5 MCG/MIN Albumin Human 25 gm in 100 mls @ 60 mls/hr 09/11/24 09:45 IV 09/11/24 11:24 X1 ONE Micafungin Sodium 100 mg/ 105 mls @ 100 mls/hr 09/11/24 10:00 Dextrose IV Q24 [facility] Losartan Potassium 50 mg 09/05/24 22:00 09/06/24 21:04 Losartan Potassium 50 Mg Tablet GT Not Given QHS [facility] Protocol Midazolam HCl 0.5 mg 09/10/24 11:16 09/10/24 15:16 Midazolam 2 Mg/2 Ml Syringe IV 0.5 mg Q2H PRN PRN Administration AGITATION Morphine Sulfate 2 mg 09/10/24 11:15 Morphine 2 Mg/Ml Syringe IV Q3H PRN PRN Pain Score 4-5 Polyethylene Glycol 8.5 gm 09/05/24 07:43 Polyethylene Glycol 3350 17 Gm Packet GT Q48H PRN constipation Sodium Chloride 10 - 40 ml 09/05/24 06:03 09/10/24 05:41 0.9% Saline Lock 10 Ml Syringe IV 30 ml UD PRN Administration SALINE FLUSH Sotalol HCl 80 mg 09/05/24 10:00 09/11/24 09:21 Sotalol Hydrochloride 80 Mg Tablet GT Not Given BID [facility] Protocol Tamsulosin HCl 0.4 mg 09/05/24 10:00 09/11/24 08:32 Tamsulosin Hcl 0.4 Mg Capsule PO Not Given BID [facility] Vancomycin Protocol 1 lab 09/11/24 10:00 Vancomycin Trough/Random Due MC 09/11/24 12:00 DAILY [facility] Venlafaxine HCl 75 mg 09/05/24 10:00 09/11/24 08:32 Venlafaxine Xr 75 Mg Capsule PO Not Given DAILY [facility] Lab / Micro Data 09/11/24 04:12 09/11/24 04:12 Labs: Laboratory Results - last 24 hr 09/10/24 11:35: Total Bilirubin 0.87, Direct Bilirubin 0.45 H, AST 26, ALT 10, Alkaline Phosphatase 57, Total Protein 5.3 L, Albumin 2.7 L, Globulin 2.6, L ipase 8 L, Vancomycin Trough 22.2 H 09/10/24 11:46: POC Glucose 85 09/10/24 17:21: POC Glucose 119 H 09/10/24 23:00: Random Vancomycin 19.5 H 09/10/24 23:06: POC Glucose 128 H 09/11/24 04:12: WBC 14.5 H, RBC 3.23 L, Hgb 10.0 L, Hct 29.2 L, MCV 90.4, MCH 31.0, MCHC 34.2, RDW Std Deviation 46.6 H, RDW Coeff of Larry 14.0, Plt Count 266, MPV 9.8, Immature Gran % (Auto) 1.000 H, Neut % (Auto) 79.8 H, Lymph % (Auto) 5.2 L, [place] % (Auto) 12.5 H, Eos % (Auto) 0.8, Baso % (Auto) 0.7, Absolute Neuts (auto) 11.6 H, Absolute Lymphs (auto) 0.76 L, Nucleated RBC % 0, Differential Comment SCANNED, Sodium 140, Potassium 3.2 L, Chloride 105, Carbon Dioxide 19.0 L, Anion Gap 17 H, BUN 24 H, Creatinine 1.67 H, Estim Creat Clear Calc 31.02 L, Est GFR (MDRD) Non-Af 42 L, BUN/Creatinine Ratio 14.3, Glucose 140 H, Calcium 7.8 09/11/24 06:30: POC Glucose 139 H Micro: Microbiology 09/10/24 02:20 Urine Catheter - Hendrix Urine Culture - Preliminary Culture exhibits no growth. 09/10/24 02:49 Sputum, Expectorated/Coughed Gram Stain - Final 09/10/24 02:49 Sputum, Expectorated/Coughed Respiratory Culture - Preliminary Presumptive C albicans 09/05/24 02:46 Blood Culture (Wb) - Anticubital Left Blood Culture - Final No growth in 5 days. 09/05/24 03:00 Blood Culture (Wb) - Left Hand Blood Culture - Final No growth in 5 days. ABG Data ABG results: ABG 09/11/24 05:10 Specimen Type ART Sample Site L Radial pH 7.47 H Bicarbonate Actual 25.0 Total CO2 26 Base Excess 1 O2 Saturation 98 O2 % 35.0 ABG pCO2 34.4 L ABG pO2 97 Stephane Test Positive Respiration Rate 18 O2 Delivery Device Adult Vent Vent Mode AC Tidal Volume 400.0 POC PEEP 5 Imaging Radiology Impression Chest X-Ray 09/11/24 03:55 IMPRESSION: Endotracheal tube appears satisfactory positioning, not significantly changed. Right PICC and nasogastric tube again noted. Scoliosis with deformity of the thorax. Deformity of the lung anatomy due to the scoliosis again seen. Difficult to exclude patchy perihilar opacities right lung, not significantly changed. Possible left base retrocardiac atelectasis, partial collapse, unchanged. Reading Location: [id number] Assessment and Plan . Assessment and plan: 1. Resp Failure: acute on chronic. Hypoxemic/Hypercapnic. Hx of post-polio + kyphoscoliosis. CXR worse during admit. ? HCAP + volume overload. At current on minimal settings. 18/400/35/5. SAT at current. Will assess for SBT later today. 2. Sedation: off propofol 2/2 hypotension early in admit. On fent and versed gtt. Attempted transition to precedex 09/10--became hypotensive. Now back on fent and versed gtt. Will try SAT at current, May need low dose precedex as he has hx of anxiety. 3. Shock: Initially 2/2 sedation. Weaned off levophed after stopping propofol 96 hours ago. Hypotensive 09/10->responded to IVFs initially but now on low dose levophed. Suspect septic. Cultures re-sent. Fluid challenge again this am with albumin. 4. HCAP: ?. infiltrates present though suspect volume. Does have secretions. On Vanc(day 5) and zosyn(day 7). Sputum with mixed rogelio. 5. GI bleed: H/H stable last 48 hours. Continue PPI. 6. ? Volume Overload: CXR worse during admit. + 9L. Stopped IVFs/Added lasix 09/08. Excellent diuresis 09/08. Lasix prn. 7. Hip fracture: POD #2. 8. FEN: TFs. 9. Afib: Back on eliquis. Continue sotalol. Rate controlled at current. 10. PX: On AC/PPI. 11. Fever: last 24 hours. Cultures unrevealing aside from [place] in sputum(no other location). No clear source. PICC line new. CXR stable. Urine clear. Given length of current anti-bacterial coverage and shock--> will add micafungin until blood cultures unrevealing at 48 hours. 12. TERRENCE: Cr worse overnight. Suspect ATN from sepsis/hypotension. Send UA to eval for casts. Vanc levels have been okay. Steven Richardson MD Critical Care Time: 50 minutes The entirety of this encounter was done via Telemedicine Physical Exam Narrative intubated, sedated pupils:= ETT in place CV: RRR, No m Chest: Coarse BS, Good a/e Abd: soft, nt, +bs Ext: no c/e/c Skin: no rashes Subjective Subjective issues with anxiety and agitation. Became hypotensive 09/10 and now on levophed
--- NOTE | 2024-09-11 09:57 | CASEMGMT ---
Social Work- SW participated in interdisciplinary rounds with care team. Plans for a SBT today following rounds. No family present during rounds. SW remains available to follow. MARISELA Lara
--- NOTE | 2024-09-11 10:07 | PN.HOSP_ITS ---
Subjective Subjective Intubated and sedated. Sputum cultures with rare Raven however started on micafungin Objective Data Objective Data Vital Signs: Vital Signs Temp Pulse Resp BP Pulse Ox O2 Del Method O2 Flow Rate 99.4 F H 79 18 107/62 96 Mechanical Ventilator 40 09/11/24 09:00 09/11/24 09:00 09/11/24 09:00 09/11/24 09:00 09/11/24 09:00 09/11/24 09:00 09/09/24 12:35 FiO2 35 09/11/24 09:00 Oxygen Flow Rate (L/min) 40 Oxygen Delivery Method Mechanical Ventilator Weight: 154 lb 1.65 oz Body Mass Index (BMI) 26.4 Intake & Output: Intake and Output for Last 24 Hours 09/10/24 09/11/24 09/12/24 03:59 03:59 03:59 Intake Total 1756.92 / 1756.92 1682.76 / 1808.81 435.97 / 435.97 Output Total 2049 / 2049 295 / 295 205 / Balance -293.08 / -293.08 1387.76 / 1513.81 230.97 / 230.97 Lab / Micro Data 09/11/24 04:12 09/11/24 04:12 Labs: Laboratory Results - last 24 hr 09/10/24 11:35: Total Bilirubin 0.87, Direct Bilirubin 0.45 H, AST 26, ALT 10, Alkaline Phosphatase 57, Total Protein 5.3 L, Albumin 2.7 L, Globulin 2.6, L ipase 8 L, Vancomycin Trough 22.2 H 09/10/24 11:46: POC Glucose 85 09/10/24 17:21: POC Glucose 119 H 09/10/24 23:00: Random Vancomycin 19.5 H 09/10/24 23:06: POC Glucose 128 H 09/11/24 04:12: WBC 14.5 H, RBC 3.23 L, Hgb 10.0 L, Hct 29.2 L, MCV 90.4, MCH 31.0, MCHC 34.2, RDW Std Deviation 46.6 H, RDW Coeff of Larry 14.0, Plt Count 266, MPV 9.8, Immature Gran % (Auto) 1.000 H, Neut % (Auto) 79.8 H, Lymph % (Auto) 5.2 L, Tompkins % (Auto) 12.5 H, Eos % (Auto) 0.8, Baso % (Auto) 0.7, Absolute Neuts (auto) 11.6 H, Absolute Lymphs (auto) 0.76 L, Nucleated RBC % 0, Differential Comment SCANNED, Sodium 140, Potassium 3.2 L, Chloride 105, Carbon Dioxide 19.0 L, Anion Gap 17 H, BUN 24 H, Creatinine 1.67 H, Estim Creat Clear Calc 31.02 L, Est GFR (MDRD) Non-Af 42 L, BUN/Creatinine Ratio 14.3, Glucose 140 H, Calcium 7.8 09/11/24 06:30: POC Glucose 139 H Micro: Microbiology 09/10/24 02:20 Urine Catheter - Hendrix Urine Culture - Preliminary Culture exhibits no growth. 09/10/24 02:49 Sputum, Expectorated/Coughed Gram Stain - Final 09/10/24 02:49 Sputum, Expectorated/Coughed Respiratory Culture - Preliminary Presumptive C albicans 09/05/24 02:46 Blood Culture (Wb) - Anticubital Left Blood Culture - Final No growth in 5 days. 09/05/24 03:00 Blood Culture (Wb) - Left Hand Blood Culture - Final No growth in 5 days. 09/05/24 04:30 Sputum, Induced/Lukens Gram Stain - Final 09/05/24 04:30 Sputum, Induced/Lukens Respiratory Culture - Final Mixed normal respiratory rogelio. No Streptococcus pneumoniae, beta-hemolytic Streptococcus or Staphylococcus aureus isolated. 09/05/24 01:00 Urine, Clean Catch Urine Culture - Final Staphylococcus epidermidis ABG Data ABG results: ABG 09/11/24 05:10 Specimen Type ART Sample Site L Radial pH 7.47 H Bicarbonate Actual 25.0 Total CO2 26 Base Excess 1 O2 Saturation 98 O2 % 35.0 ABG pCO2 34.4 L ABG pO2 97 Stephane Test Positive Respiration Rate 18 O2 Delivery Device Adult Vent Vent Mode AC Tidal Volume 400.0 POC PEEP 5 Radiography Diagnostic Testing: Radiology Impression Chest X-Ray 09/11/24 03:55 IMPRESSION: Endotracheal tube appears satisfactory positioning, not significantly changed. Right PICC and nasogastric tube again noted. Scoliosis with deformity of the thorax. Deformity of the lung anatomy due to the scoliosis again seen. Difficult to exclude patchy perihilar opacities right lung, not significantly changed. Possible left base retrocardiac atelectasis, partial collapse, unchanged. Reading Location: [facility] Physical Exam Const General Appearance: intubated and patient mechanically ventilated HEENT normocephalic Eyes PERRL and conjunctivae normal Neck supple and no JVD Resp normal respiratory effort, no retractions and no use of accessory muscles Auscultation: Negative for crackles, rales, rhonchi or wheezes Cardio regular rate, regular rhythm, S1 normal heart sound, S2 normal heart sound and no murmurs GI soft to palpation and non-distended; Negative for hepatosplenomegaly Extremity General Extremity: edema Skin no rashes or lesions noted Neuro Sensorium / Orientation: sedated on vent Psych Appearance: intubated Assessment & Plan Assessment/Plan (1) Closed fracture of neck of left femur: QUALIFIERS: Encounter type: initial encounter Qualified Code(s): S72.002A - Fracture of unspecified part of neck of left femur, initial encounter for closed fracture PLAN: Plan 1. Acute on chronic respiratory failure after a mechanical fall leading to left femoral neck fracture status postrepair 09/09/2024/possible pneumonia ? Had a mechanical fall at home and on arrival to the ER had to be intubated due to rising pCO2 and declining mental status ? Initially he was set to be transferred to [place] for orthopedic surgery however this was canceled due to him needing to be intubated and sent to the ICU, we attempted to transfer last evening however they refused they do not except ICU to ICU transfers ? Continue with critical care management ? 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 Appreciate department traffic freight router assistance ? Continue with empiric Zosyn, ICU added vancomycin ? Recultured due to spiking temp overnight, original blood cultures and urine cultures are negative, repeat blood cultures are pending. Sputum culture with rare Raven being treated with micafungin 2. A-fib/essential HTN/HLD ? Resume his home rate control medications ?Can resume his Eliquis per orthopedic surgery ? Continue with his home blood pressure medications, will hold his losartan secondary to a rising creatinine ? Will monitor make adjustments as necessary ? Echo on 07/23/2024 EF of 55% with a PASP of 35 mmHg 3. Anxiety/depression ? Stable ? Continue Effexor 4. GERD ? Stable ? Continue with PPI ? H&H is stabilized, he does not have a significant GI bleed DVT: Eliquis Charges/Coding Visit Charges Inpatient E&M: 74308 Subs Hosp L2
[2024-09-11] MEDS: Potassium Chloride 10mEq/100mL 10 MEQ/100 ML IV.SOLN. 100 MEQ IV BOLUS ×2 (10:18→11:30)
[2024-09-11] MEDS: Micafungin Sodium 100 MG in Dextrose 5%-Water (100mL Bag) 100 ML IV (10:18)
[2024-09-11] MEDS: Albumin Human 25% (100 mL) 25 GM/100 ML BAG IV (11:35)
[2024-09-11] MEDS: fentaNYL drip 100 ML 15 MCG CONT INF (11:35)
[2024-09-11] MEDS: Midazolam 2 MG/2 ML Syringe 0.5 MG IV ×2 (11:36→13:40)
[2024-09-11] MEDS: Vancomycin Trough/Random Due 1 LAB MC (11:36)
[2024-09-11 11:40] LABS: Bedside Glucose 127 mg/dL (74-106)
[2024-09-11 12:04] LABS: Magnesium 1.4 mg/dL (1.5-2.2); Phosphorus 4.6 mg/dL (2.7-4.5)
[2024-09-11 12:34] LABS: Vancomycin, Random Level 16.1 ug/mL (0.0-15.0)
--- NOTE | 2024-09-11 12:48 | PCM.RX.CS ---
Consult Antibiotic Management Pharmacy has been consulted to manage selected antibiotic: Vancomycin Type of Intervention Type of Consult: Follow-up Prior Doses of Antibiotics Prior Doses of Antibiotics Received/Current Regimen: URINE Labs Labs: Sodium 140 mmol/L (133-145) 09/11/24 04:12 Potassium 3.2 mmol/L (3.3-5.1) L 09/11/24 04:12 Chloride 105 mmol/L (98-108) 09/11/24 04:12 Carbon Dioxide 19.0 mmol/L (21.0-32.0) L 09/11/24 04:12 Anion Gap 17 (5-15) H 09/11/24 04:12 BUN 24 mg/dL (4-19) H 09/11/24 04:12 Creatinine 1.67 mg/dL (0.70-1.20) H 09/11/24 04:12 Est GFR (MDRD) Non-Af 42 (>60) L 09/11/24 04:12 BUN/Creatinine Ratio 14.3 RATIO (10-20) 09/11/24 04:12 Glucose 140 mg/dL (70-99) H 09/11/24 04:12 Vancomycin Trough 22.2 ug/mL (5.0-15.0) H 09/10/24 11:35 Random Vancomycin 16.1 ug/mL (0.0-15.0) H 09/11/24 11:45 Microbiology Microbiology: Microbiology 09/10/24 02:20 Urine Catheter - Hendrix Urine Culture - Preliminary Culture exhibits no growth. 09/10/24 02:49 Sputum, Expectorated/Coughed Gram Stain - Final 09/10/24 02:49 Sputum, Expectorated/Coughed Respiratory Culture - Preliminary Presumptive C albicans 09/05/24 02:46 Blood Culture (Wb) - Anticubital Left Blood Culture - Final No growth in 5 days. 09/05/24 03:00 Blood Culture (Wb) - Left Hand Blood Culture - Final No growth in 5 days. 09/05/24 04:30 Sputum, Induced/Lukens Gram Stain - Final 09/05/24 04:30 Sputum, Induced/Lukens Respiratory Culture - Final Mixed normal respiratory rogelio. No Streptococcus pneumoniae, beta-hemolytic Streptococcus or Staphylococcus aureus isolated. 09/05/24 01:00 Urine, Clean Catch Urine Culture - Final Staphylococcus epidermidis Dosing Weight Weight used for dosin.9 kg Estimated Creatinine Clearance Estimated Creatinine Clearance: ~ 31 Goal Trough Goal Trough: 10-15 mcg/mL Pharmacy Plan for Drug Dosing Pharmacy Plan for Drug Dosing: Vancomycin random level = 16.1. Will resume vancomycin dosing in 4 hours when estimated trough will be in goal range, at dose of 500 mg Q12H. Pharmacy Service will continue to monitor and adjust dosing as required. Follow-Up Labs Follow-Up Labs: Trough: Vancomycin Date/Time Labs Ordered Labs to be done on [date and time ordered]: 09/13/24 @ 7354
[2024-09-11] MEDS: Vital AF 1.2 Cal Liquid 1,000 ML 20 ML GT (15:15)
--- NOTE | 2024-09-11 15:20 | RAD_ITS ---
EXAM: XR Chest, 1 View CLINICAL INDICATION: HYPOXEMIA TECHNIQUE: Frontal view of the chest. COMPARISON: No relevant prior studies available. FINDINGS: LUNGS AND PLEURAL SPACES: See below. HEART: Cardiomegaly with pulmonary congestion and edema. Superimposed pneumonia cannot be excluded. MEDIASTINUM: Unremarkable. Normal mediastinal contour. BONES/JOINTS: Unremarkable. No acute fracture. TUBES, LINES AND DEVICES: Enteric tube tip cannot be seen but is below the diaphragm. RAD/Chest 1 View (Portable) IMPRESSION: Cardiomegaly with pulmonary congestion and edema. Superimposed pneumonia cannot be excluded. Reading Location: [id number]
[2024-09-11 15:27] LABS: Allen Test Positive; Base Excess 5 mmol/L (-2 to +2); Bicarbonate 27.9 mmol/L (22-26); Blood Gas Specimen Type ART; Mode AC; O2 Delivery Device Adult Vent; PEEP 5; PO2 411 mmHG (75-100); RR 18; SITE L Radial; SO2 100 % (95-99); Time Given 15:25:02; Total Carbon Dioxide 29 mmol/L; pCO2 36.8 mmHg (35-45); pH 7.49 (7.35-7.45)
[2024-09-11 17:02] LABS: Bedside Glucose 124 mg/dL (74-106)
[2024-09-11] MEDS: Vancomycin IV 500 MG/100 ML BAG 100 MG IV (17:05)
[2024-09-11] MEDS: APIXABAN 5 MG TABLET PO (21:15)
[2024-09-11] MEDS: Polyethylene Glycol 3350 17 GM PACKET 8.5 GM GT (21:16)
[2024-09-12] VITALS (38 sets, daily range): BP systolic 96–144; BP diastolic 51–103; PULSE 43–105; RESP 18–23; TEMP 36.9–38.2; O2SAT 90–100; BMI 27.2
[2024-09-12] MEDS: Norepinephrine 8 MG in 0.9% Normal Saline (250mL Bag) 242 ML 9.4 MG CONT INF (00:09)
[2024-09-12 00:43] LABS: Bedside Glucose 130 mg/dL (74-106)
[2024-09-12] MEDS: Midazolam 50 MG in 0.9% Normal Saline (100mL Bag) 90 ML 6 MG CONT INF (03:38)
[2024-09-12] MEDS: Vancomycin IV 500 MG/100 ML BAG 100 MG IV (03:57)
--- NOTE | 2024-09-12 04:10 | RAD_ITS ---
PROCEDURE: CHEST 1 VIEW (PORTABLE) 09/12/2024 REASON FOR EXAM: PNEUMONIA TECHNIQUE: Frontal view of the chest. COMPARISON: 09/11/2024 FINDINGS: Endotracheal tube again noted not significantly changed appears satisfactory position. Right PICC and nasogastric tube again noted. No significant interval change in appearance of the chest. Cardiac silhouette again noted to be enlarged, unchanged. RAD/Chest 1 View (Portable) IMPRESSION: No significant interval change in appearance of the chest. Reading Location: [id number]
[2024-09-12 04:27] LABS: Absolute Lymphocyte Count 0.99 X10^3/uL (0.83-4.51); Absolute Neutrophil Count 8.3 X10^3/uL (2.0-7.7); Basophil# 0.06 X10^3/uL; Basophil% 0.5 % (0-1); Eosinophils% 4.5 % (0-5); Lymphocyte # 0.99 X10^3/ul (0.83-4.51); Mean Corp Hgb Conc 34.8 g/dL (32-36); Mean Corpuscular Hgb 31.4 pg (27.0-32.0); Mean Corpuscular Volume 90.2 fL (80-94); Monocyte# 0.95 X10^3/uL; Monocyte% 8.6 % (0-10); NRBC Flagged by Analyzer 0 % (0-5); Neutrophil # 8.33 X10^3/uL (2.7-7.7); Neutrophil % 75.3 % (47-70); Platelet Count 286 K/mm3 (150-450); RBC Distribution Width CV 14.1 % (11.6-14.6); RBC Distribution Width SD 46.8 fl (35.1-43.9); Red Blood Count 2.55 M/mm3 (4.6-6.2); White Blood Count 11.1 K/mm3 (4.4-11.0)
[2024-09-12 05:07] LABS: Allen Test Positive; Base Excess -1 mmol/L (-2 to +2); Bicarbonate 21.7 mmol/L (22-26); Blood Gas Specimen Type ART; Mode AC; O2 Delivery Device Adult Vent; PEEP 5; PO2 94 mmHG (75-100); RR 18; SITE R Radial; SO2 98 % (95-99); Total Carbon Dioxide 23 mmol/L; pCO2 26.4 mmHg (35-45); pH 7.52 (7.35-7.45)
[2024-09-12 05:21] LABS: Anion Gap 14 (5-15); BUN 30 mg/dL (4-19); BUN/Creat Ratio 14.4 RATIO (10-20); Calcium,Total 8.1 mg/dL (7.6-11.0); Carbon Dioxide 20.9 mmol/L (21.0-32.0); Chloride 103 mmol/L (98-108); Creatinine, Serum 2.08 mg/dL (0.70-1.20); EST Glomerular Filtration Rate 32 (>60); Glucose 129 mg/dL (70-99); Potassium 3.2 mmol/L (3.3-5.1); Sodium Level 138 mmol/L (133-145)
[2024-09-12] MEDS: fentaNYL drip 100 ML 20 MCG CONT INF ×2 (05:56→11:10)
[2024-09-12] MEDS: CHLORHEXIDINE GLUC 2% CLOTH 1 EACH TOWELETTE TOPICAL (05:59)
[2024-09-12] MEDS: Piperacil/Tazobactam 3.375 GM in 0.9% Normal Saline (50mL MB+) 50 ML IV (05:59)
[2024-09-12 07:11] LABS: Bedside Glucose 149 mg/dL (74-106)
[2024-09-12] MEDS: Chlorhexidine 15 ML PO ×2 (09:19→21:41)
[2024-09-12] MEDS: APIXABAN 5 MG TABLET PO ×2 (09:20→21:41)
[2024-09-12] MEDS: Pantoprazole Sodium 40 MG in 0.9% Normal Saline (100mL MB+) 100 ML 330 MG IV (10:06)
[2024-09-12] MEDS: Micafungin Sodium 100 MG in Dextrose 5%-Water (100mL Bag) 100 ML IV (10:38)
--- NOTE | 2024-09-12 11:04 | PN.CC_ITS ---
Objective Data Objective Data Vital Signs: Vital Signs Last response 3 Temperature 37.1 C 09/12/24 10:00 Temperature Source Core 09/12/24 10:00 Pulse Rate 62 09/12/24 10:33 Pulse Strength Normal (2+) 09/12/24 08:35 Respiratory Rate 18 09/12/24 10:33 Respiratory Effort Mechanically Ventilated 09/12/24 08:00 Respiratory Depth Normal 09/12/24 08:00 Respiratory Pattern Normal 09/12/24 08:00 Blood Pressure 118/71 09/12/24 10:00 Blood Pressure Mean 86 09/12/24 10:00 Blood Pressure Source Monitor 09/12/24 10:00 Blood Pressure Position Semi-Fowlers 09/12/24 06:00 Blood Pressure Location Left Arm 09/12/24 06:00 Pulse Ox 93 09/12/24 10:33 Oxygen Delivery Method Mechanical Ventilator 09/12/24 10:00 Oxygen Flow Rate (L/min) 40 09/09/24 12:35 Fraction of Inspired Oxygen (FIO2) 28 09/12/24 10:33 EtCo2 - Document during CPR and with ROSC 35 09/09/24 16:27 I&O: I&O Last 24 Hours 3 09/11/24 09/11/24 09/12/24 11:59 23:59 11:59 Intake Total 1119.85 / 2580.98 1425.40 / 2580.98 736.23 / 736.23 Output Total 225 / 500 75 / 500 300 / 300 Balance 894.85 / 2080.98 1350.40 / 2080.98 436.23 / 436.23 I&O: Total Stay 3 09/04/24 23:32 thru 09/12/24 10:35 Intake Total 10073.93 Output Total 9945 Balance 20858.93 Current Meds Ordered / Administered: Current meds ordered / Administered 3 Generic Name Dose Route Start Last Admin Trade Name Freq PRN Reason Stop Dose Admin Acetaminophen 650 mg 09/05/24 13:55 09/10/24 23:00 Acetaminophen 650 Mg/20 Ml Udc GT 650 mg Q6H PRN PRN Administration Pain 1-10 or Fever Albuterol Sulfate 2.5 mg 09/05/24 05:29 09/08/24 09:14 Albuterol 2.5 Mg/3 Ml Vial.Neb. INHALATION 2.5 mg Q2H PRN PRN Administration SOB &/OR WHEEZING Apixaban 5 mg 09/11/24 22:00 09/12/24 09:20 Apixaban 5 Mg Tablet PO 5 mg BID NIURKA Administration Chlorhexidine Gluconate 1 each 09/06/24 10:00 09/12/24 05:59 Chlorhexidine Gluc 2% Cloth 1 Each Towelette TOPICAL 1 each DAILY NIURKA Administration Chlorhexidine Gluconate 15 ml 09/06/24 10:00 09/12/24 09:19 Chlorhexidine 15 Ml PO 15 ml BID NIURKA Administration Glucagon 1 mg 09/05/24 05:29 Glucagon 1 Mg/Ml Syringe IM X1 PRN HYPOGLYCEMIA Protocol Fentanyl 100 mls @ 2.5 mls/hr 09/05/24 04:30 09/12/24 10:00 CONT INF 200 mcg/hr UD NIURKA 20 mls/hr Titration Protocol 25 MCG/HR Dextrose 250 mls @ 0 mls/hr 09/05/24 05:29 09/07/24 16:24 Dextrose 10%-Water IV Infused .Q0M PRN Infusion HYPOGLYCEMIA Protocol As Directed Sodium Chloride 250 mls @ 15 mls/hr 09/05/24 06:03 09/07/24 19:30 IV 0 mls/hr .[id number] PRN Infusion Saline Flush Sodium Chloride 250 mls @ 15 mls/hr 09/05/24 06:03 IV .[id number] PRN Additional IVPB Infusion Enteral Nutritional Formula 1,000 mls @ 20 mls/hr 09/08/24 09:55 09/11/24 15:15 Vital Af 1.2 Ryan Liquid GT 20 mls/hr .Q48H NIURKA Administration Pantoprazole Sodium 40 mg/ 110 mls @ 330 mls/hr 09/10/24 10:00 09/12/24 10:35 Sodium Chloride IV Infused Q24 NIURKA Infusion Midazolam HCl 50 mg/ Sodium 100 mls @ 2 mls/hr 09/10/24 15:00 09/12/24 10:30 Chloride CONT INF 1 mg/hr .Q50H NIURKA 2 mls/hr Titration Protocol 1 MG/HR Norepinephrine Bitartrate 8 mg 250 mls @ 9.375 mls/hr 09/10/24 16:15 09/12/24 10:00 / Sodium Chloride CONT INF 5 mcg/min .[id number] NIURKA 9.4 mls/hr Titration Protocol 5 MCG/MIN Micafungin Sodium 100 mg/ 105 mls @ 100 mls/hr 09/11/24 10:30 09/12/24 10:38 Dextrose IV 100 mls/hr Q24 NIURKA Administration Dexmedetomidine HCl 400 mcg/ 100 mls @ 9 mls/hr 09/12/24 11:00 Sodium Chloride CONT INF .[id number] NIURKA Protocol 0.5 MCG/KG/HR Albumin Human 25 gm in 100 mls @ 60 mls/hr 09/12/24 10:55 IV 09/12/24 12:34 X1 ONE Losartan Potassium 50 mg 09/05/24 22:00 09/06/24 21:04 Losartan Potassium 50 Mg Tablet GT Not Given [facility]HS [facility] Protocol Midazolam HCl 0.5 mg 09/10/24 11:16 09/11/24 13:40 Midazolam 2 Mg/2 Ml Syringe IV 0.5 mg Q2H PRN PRN Administration AGITATION Morphine Sulfate 2 mg 09/10/24 11:15 Morphine 2 Mg/Ml Syringe IV Q3H PRN PRN Pain Score 4-5 Polyethylene Glycol 8.5 gm 09/05/24 07:43 09/11/24 21:16 Polyethylene Glycol 3350 17 Gm Packet GT 8.5 gm Q48H PRN Administration constipation Sodium Chloride 10 - 40 ml 09/05/24 06:03 09/10/24 05:41 0.9% Saline Lock 10 Ml Syringe IV 30 ml UD PRN Administration SALINE FLUSH Sotalol HCl 80 mg 09/05/24 10:00 09/12/24 07:34 Sotalol Hydrochloride 80 Mg Tablet GT Not Given BID [facility] Protocol Tamsulosin HCl 0.4 mg 09/05/24 10:00 09/12/24 07:34 Tamsulosin Hcl 0.4 Mg Capsule PO Not Given BID [facility] Venlafaxine HCl 75 mg 09/05/24 10:00 09/12/24 07:34 Venlafaxine Xr 75 Mg Capsule PO Not Given DAILY [facility] Lab / Micro Data Attestation: I reviewed the patient's lab results. 09/12/24 04:05 09/12/24 04:05 Labs: Laboratory Results - last 24 hr 09/11/24 04:12: Phosphorus 4.6 H, Magnesium 1.4 L 09/11/24 11:22: POC Glucose 127 H 09/11/24 11:45: Random Vancomycin 16.1 H 09/11/24 16:43: POC Glucose 124 H 09/12/24 00:24: POC Glucose 130 H 09/12/24 04:05: WBC 11.1 H, RBC 2.55 L, Hgb 8.0 L, Hct 23.0 L, MCV 90.2, MCH 31.4, MCHC 34.8, RDW Std Deviation 46.8 H, RDW Coeff of Larry 14.1, Plt Count 286, MPV 10.0, Immature Gran % (Auto) 2.100 H, Neut % (Auto) 75.3 H, Lymph % (Auto) 9.0 L, Whitman % (Auto) 8.6, Eos % (Auto) 4.5, Baso % (Auto) 0.5, Absolute Neuts (auto) 8.3 H, Absolute Lymphs (auto) 0.99, Nucleated RBC % 0, Sodium 138, P otassium 3.2 L, Chloride 103, Carbon Dioxide 20.9 L, Anion Gap 14, BUN 30 H, C reatinine 2.08 H, Estim Creat Clear Calc 24.90 L, Est GFR (MDRD) Non-Af 32 L, BUN/Creatinine Ratio 14.4, Glucose 129 H, Calcium 8.1 09/12/24 06:53: POC Glucose 149 H Micro: Microbiology 09/10/24 02:18 Blood Culture (Wb) - Left Forearm Blood Culture - Preliminary No growth in 48 hours. 09/10/24 02:20 Urine Catheter - Hadley Urine Culture - Final Culture exhibits no growth. 09/10/24 02:49 Sputum, Expectorated/Coughed Gram Stain - Final 09/10/24 02:49 Sputum, Expectorated/Coughed Respiratory Culture - Final Presumptive C albicans ABG Data ABG results: ABG 09/11/24 09/12/24 15:22 05:04 Specimen Type ART ART Sample Site L Radial R Radial pH 7.49 H 7.52 H Bicarbonate Actual 27.9 H 21.7 L Total CO2 29 23 Base Excess 5 H -1 O2 Saturation 100 H 98 O2 % 100.0 30.0 ABG pCO2 36.8 26.4 L ABG pO2 411 H* 94 Stephane Test Positive Positive Respiration Rate 18 18 O2 Delivery Device Adult Vent Adult Vent Vent Mode AC AC Tidal Volume 400.0 400.0 POC PEEP 5 5 Crit Call To/Read Back Yes Blood Gas Notified Whom angela Blood Gas Notified Time 15:25:02 Imaging Radiology Impression Chest X-Ray 09/11/24 15:20 IMPRESSION: Cardiomegaly with pulmonary congestion and edema. Superimposed pneumonia cannot be excluded. Reading Location: [facility] Chest X-Ray 09/12/24 04:10 IMPRESSION: No significant interval change in appearance of the chest. Reading Location: [id number] 09/12 CXR showing improved R sided opacity but over still with atelectasis and thoracic cage abnormalities associated with scoliosis Assessment and Plan . 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 POD2, risk for UTI and VAP, has micafungin from sputum already Plan: micafungin (TERRENCE) instead of fluconazole for c albicans PNA add precedex drip and wean off fentanyl drip f/U EEG and if no SZ, DC versed drip albumin 25gm IV x1 and 40mg IV furosemide x1 likely will need to extubated to home AVAPS given nosocomial organisms already in sputum, need extubation YAO Nikos Laura MD PCCM [facility] Critical Care Time: 55 min The entirety of this encounter was done via Telemedicine Physical Exam Narrative chronically ill appearing edematous appearing nontoxic/nondiaphoretic pale RASS -2 Lung coarse in bases Hadlye in place Subjective Subjective CC[facility] HPI: 79yoM with Polio related scoliosis, multiple hospitalizations in the last 6 months and recent fall and fx of hip requiring repair. Has failed to be extubated since OR due to encephalopathy and agitation, and per nursing has required prolonged sedation weans in the past as well. Due to hip and hardware, it was preferred that he not be ZAMORANO aggressively during the extubation process. Notably, he uses AVAPS home ventilator at night for sleep. 09/12 - POD 2; has hadley and ETT; 200 fentanyl and 1 versed drip; norepinephrine at 5mcg/min 2/2 hypotension. 18/400/5/28%. Sister at bedside is very concerned about edemea in B/L UE and LE. He has been undergoing diuresis, but UOP has fallen off. ROS could not be obtained as above
--- NOTE | 2024-09-12 11:04 | PCM.PN.HOSP ---
Subjective Subjective Had a possible seizure last evening, EEG is being performed this morning. H&H has dropped and his renal function continues to worsen Objective Data Objective Data Vital Signs: Vital Signs Temp Pulse Resp BP Pulse Ox O2 Del Method O2 Flow Rate 98.8 F 62 18 118/71 93 Mechanical Ventilator 40 09/12/24 10:00 09/12/24 10:33 09/12/24 10:33 09/12/24 10:00 09/12/24 10:33 09/12/24 10:00 09/09/24 12:35 FiO2 28 09/12/24 10:33 Oxygen Flow Rate (L/min) 40 Oxygen Delivery Method Mechanical Ventilator Weight: 158 lb 11.725 oz Body Mass Index (BMI) 27.2 Intake & Output: Intake and Output for Last 24 Hours 09/11/24 09/12/24 09/13/24 03:59 03:59 03:59 Intake Total 1682.76 / 1808.81 2435.28 / 2476.18 543.30 / 543.30 Output Total 295 / 295 500 / 500 100 / 100 Balance 1387.76 / 1513.81 1935.28 / 1976.18 443.30 / 443.30 Lab / Micro Data 09/12/24 04:05 09/12/24 04:05 Labs: Laboratory Results - last 24 hr 09/11/24 04:12: Phosphorus 4.6 H, Magnesium 1.4 L 09/11/24 11:22: POC Glucose 127 H 09/11/24 11:45: Random Vancomycin 16.1 H 09/11/24 16:43: POC Glucose 124 H 09/12/24 00:24: POC Glucose 130 H 09/12/24 04:05: WBC 11.1 H, RBC 2.55 L, Hgb 8.0 L, Hct 23.0 L, MCV 90.2, MCH 31.4, MCHC 34.8, RDW Std Deviation 46.8 H, RDW Coeff of Larry 14.1, Plt Count 286, MPV 10.0, Immature Gran % (Auto) 2.100 H, Neut % (Auto) 75.3 H, Lymph % (Auto) 9.0 L, Morgan % (Auto) 8.6, Eos % (Auto) 4.5, Baso % (Auto) 0.5, Absolute Neuts (auto) 8.3 H, Absolute Lymphs (auto) 0.99, Nucleated RBC % 0, Sodium 138, Potassium 3.2 L, Chloride 103, Carbon Dioxide 20.9 L, Anion Gap 14, BUN 30 H, Creatinine 2.08 H, Estim Creat Clear Calc 24.90 L, Est GFR (MDRD) Non-Af 32 L, BUN/Creatinine Ratio 14.4, Glucose 129 H, Calcium 8.1 09/12/24 06:53: POC Glucose 149 H Micro: Microbiology 09/10/24 02:18 Blood Culture (Wb) - Left Forearm Blood Culture - Preliminary No growth in 48 hours. 09/10/24 02:20 Urine Catheter - Hendrix Urine Culture - Final Culture exhibits no growth. 09/10/24 02:49 Sputum, Expectorated/Coughed Gram Stain - Final 09/10/24 02:49 Sputum, Expectorated/Coughed Respiratory Culture - Final Presumptive C albicans 09/05/24 02:46 Blood Culture (Wb) - Anticubital Left Blood Culture - Final No growth in 5 days. 09/05/24 03:00 Blood Culture (Wb) - Left Hand Blood Culture - Final No growth in 5 days. 09/05/24 04:30 Sputum, Induced/Lukens Gram Stain - Final 09/05/24 04:30 Sputum, Induced/Lukens Respiratory Culture - Final Mixed normal respiratory rogelio. No Streptococcus pneumoniae, beta-hemolytic Streptococcus or Staphylococcus aureus isolated. 09/05/24 01:00 Urine, Clean Catch Urine Culture - Final Staphylococcus epidermidis ABG Data ABG results: ABG 09/11/24 09/12/24 15:22 05:04 Specimen Type ART ART Sample Site L Radial R Radial pH 7.49 H 7.52 H Bicarbonate Actual 27.9 H 21.7 L Total CO2 29 23 Base Excess 5 H -1 O2 Saturation 100 H 98 O2 % 100.0 30.0 ABG pCO2 36.8 26.4 L ABG pO2 411 H* 94 Stephane Test Positive Positive Respiration Rate 18 18 O2 Delivery Device Adult Vent Adult Vent Vent Mode AC AC Tidal Volume 400.0 400.0 POC PEEP 5 5 Crit Call To/Read Back Yes Blood Gas Notified Whom dand Blood Gas Notified Time 15:25:02 Radiography Diagnostic Testing: Radiology Impression Chest X-Ray 09/11/24 15:20 IMPRESSION: Cardiomegaly with pulmonary congestion and edema. Superimposed pneumonia cannot be excluded. Reading Location: [facility] Chest X-Ray 09/12/24 04:10 IMPRESSION: No significant interval change in appearance of the chest. Reading Location: [facility] Physical Exam Const General Appearance: intubated and patient mechanically ventilated HEENT normocephalic Eyes PERRL and conjunctivae normal Neck supple and no JVD Resp normal respiratory effort, no retractions and no use of accessory muscles Auscultation: Negative for crackles, rales, rhonchi or wheezes Cardio regular rate, regular rhythm, S1 normal heart sound, S2 normal heart sound and no murmurs GI soft to palpation and non-distended; Negative for hepatosplenomegaly Extremity General Extremity: edema Skin no rashes or lesions noted Neuro Sensorium / Orientation: sedated on vent Psych Appearance: intubated Assessment & Plan Assessment/Plan (1) Closed fracture of neck of left femur: QUALIFIERS: Encounter type: initial encounter Qualified Code(s): S72.002A - Fracture of unspecified part of neck of left femur, initial encounter for closed fracture PLAN: Plan 1. Acute on chronic respiratory failure after a mechanical fall leading to left femoral neck fracture status postrepair 09/09/2024/possible pneumonia/TERRENCE ? Had a mechanical fall at home and on arrival to the ER had to be intubated due to rising pCO2 and declining mental status ? Continue with critical care management ? 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 Appreciate experimental machinist assistance ? Repeat urine cultures and blood cultures are also negative, sputum culture from 516 is normal rogelio but repeat sputum cultures show Raven albicans so she was started micafungin ? Given worsening renal function will discontinue his Vanco and Zosyn as there are no obvious bacterial infections ? Given the [place] renal function, he does have a Hendrix placed however will obtain urine electrolytes and urine creatinine, ICU is planning on IV Lasix and albumin. May need to get nephrology involved in the next 12 to 24 hours ? Chest x-ray today remains unchanged 2. A-fib/essential HTN/HLD ? Resume his home rate control medications ?Can resume his Eliquis per orthopedic surgery ? Continue with his home blood pressure medications, will hold his losartan secondary to a rising creatinine ? Will monitor make adjustments as necessary ? Echo on 07/23/2024 EF of 55% with a PASP of 35 mmHg 3. Anxiety/depression ? Stable ? Continue Effexor 4. GERD ? Stable ? Continue with PPI ? H&H dropped significantly today with no obvious signs of bleed, will recheck at noon DVT: Kesha Charges/Coding Visit Charges Inpatient E&M: 22506 Subs Hosp L3
[2024-09-12] MEDS: Albumin Human 25% (100 mL) 25 GM/100 ML BAG IV (11:45)
[2024-09-12 12:03] LABS: Urine Chloride < 20 mmol/L (Not Establ.); Urine Potassium 27.2 mmol/L (Not Establ.); Urine Sodium 27 mmol/L (Not Establ.)
[2024-09-12 12:54] LABS: Bedside Glucose 144 mg/dL (74-106)
--- NOTE | 2024-09-12 13:35 | CT_ITS ---
EXAM: CT Head Without Intravenous Contrast CLINICAL INDICATION: NEUROLOGICAL CHANGES TECHNIQUE: Axial computed tomography images of the head/brain without intravenous contrast. This CT exam was performed using one or more of the following dose reduction techniques: automated exposure control, adjustment of the mA and/or kV according to patient size, and/or use of iterative reconstruction technique. COMPARISON: CT Head dated 09/05/2024 FINDINGS: BRAIN AND EXTRA-AXIAL SPACES: The cerebral and cerebellar sulci are prominent consistent with brain atrophy. Areas of decreased attenuation in the deep cerebral white matter are consistent with small vessel ischemic/degenerative changes. No acute intracranial hemorrhage, midline shift or mass effect. If symptoms persist, further evaluation with MRI is recommended. BONES/JOINTS: Unremarkable. No acute fracture. SOFT TISSUES: Unremarkable. SINUSES: Unremarkable as visualized. No acute sinusitis. MASTOID AIR CELLS: Unremarkable as visualized. No mastoid effusion. CT/Brain/Head without Contrast IMPRESSION: 1. Generalized brain atrophy. 2. Small vessel ischemic/degenerative changes. 3. No acute intracranial hemorrhage, midline shift or mass effect. If symptoms persist, further evaluation with MRI is recommended. Reading [facility]
[2024-09-12] MEDS: Furosemide 40 MG/4 ML Vial IV (14:06)
[2024-09-12 14:16] LABS: Hematocrit 25.8 % (40-54); Hemoglobin 8.9 g/dL (13.0-16.5)
--- NOTE | 2024-09-12 15:40 | CHAPLAIN ---
Type of Pastoral Visit _x__ Initial Visit ___ Follow-up Visit ___ On-call Visit ___ General Patient Visit ___ Spiritual Assessment ___ Family Conference ___ Bereavement ___ Rapid Response ___ Code Blue ___ Other (describe below) Pastoral Care Referral From ___ Patient ___ Family _x__ Nurse ___ Physician ___ Automotive Service Advisor ___ Home Care Physical Therapist ___ Other (describe below) Sacrament/Intervention _x__ Active listening ___ Anointing ___ Baptist ___ Bereavement ___ Communion ___ Rossi exploration ___ ___ Life review _x__ Prayer ___ Reconciliation ___ Sacrament of Sick _x__ Supportive presence ___ Wedding ___ Other (describe below) Pastoral Comments patient has been in PCU, ICU, and TCU in the last few weeks and has been seen in each location by this cooker helper; pt had a fall, surgery, but is now intubated in ICU; RN asks that this cooker helper would make a visit although pt is on the vent; sister is in the room and is offered support and someone to talk with; sister acknowledges that pt has had a hard life with many health issues since age [age] with polio; sister talks about her brother and she welcomes prayers and presence for support
[2024-09-12] MEDS: Vital AF 1.2 Cal Liquid 1,000 ML 50 ML GT (16:30)
[2024-09-12 18:22] LABS: Bedside Glucose 98 mg/dL (74-106)
[2024-09-12] MEDS: fentaNYL drip 100 ML 10 MCG CONT INF (20:00)
[2024-09-13] VITALS (40 sets, daily range): BP systolic 52–177; BP diastolic 40–108; PULSE 57–108; RESP 12–30; TEMP 37.7–38.3; O2SAT 90–100; BMI 27.0
[2024-09-13 00:09] LABS: Bedside Glucose 108 mg/dL (74-106)
[2024-09-13 04:20] LABS: Absolute Lymphocyte Count 0.83 X10^3/uL (0.83-4.51); Absolute Neutrophil Count 7.7 X10^3/uL (2.0-7.7); Basophil# 0.07 X10^3/uL; Basophil% 0.7 % (0-1); Eosinophil# 0.47 X10^3/uL; Eosinophils% 4.6 % (0-5); Hematocrit 22.1 % (40-54); Hemoglobin 7.4 g/dL (13.0-16.5); Lymphocyte # 0.83 X10^3/ul (0.83-4.51); Lymphocyte % 8.1 % (19-41); Mean Corp Hgb Conc 33.5 g/dL (32-36); Mean Corpuscular Hgb 30.6 pg (27.0-32.0); Mean Corpuscular Volume 91.3 fL (80-94); Mean Platelet Vol. 9.7 fl (6.2-12.0); Monocyte# 1.05 X10^3/uL; Monocyte% 10.2 % (0-10); NRBC Flagged by Analyzer 0 % (0-5); Neutrophil # 7.66 X10^3/uL (2.7-7.7); Neutrophil % 74.5 % (47-70); Platelet Count 384 K/mm3 (150-450); RBC Distribution Width CV 14.1 % (11.6-14.6); RBC Distribution Width SD 47.5 fl (35.1-43.9); Red Blood Count 2.42 M/mm3 (4.6-6.2); White Blood Count 10.3 K/mm3 (4.4-11.0)
[2024-09-13 04:43] LABS: Anion Gap 13 (5-15); BUN 32 mg/dL (4-19); BUN/Creat Ratio 14.6 RATIO (10-20); Calcium,Total 8.7 mg/dL (7.6-11.0); Carbon Dioxide 24.2 mmol/L (21.0-32.0); Chloride 103 mmol/L (98-108); Creatinine, Serum 2.18 mg/dL (0.70-1.20); EST Glomerular Filtration Rate 30 (>60); Estimated Creatinine Clearance 25.82 ml/min (50-250); Glucose 134 mg/dL (70-99); Potassium 3.4 mmol/L (3.3-5.1); Sodium Level 141 mmol/L (133-145)
[2024-09-13] MEDS: fentaNYL drip 100 ML 10 MCG CONT INF ×2 (06:00→20:00)
[2024-09-13] MEDS: CHLORHEXIDINE GLUC 2% CLOTH 1 EACH TOWELETTE TOPICAL (06:31)
[2024-09-13] MEDS: 0.9% Saline Lock 10 ML Syringe IV (06:31)
[2024-09-13 07:12] LABS: Bedside Glucose 124 mg/dL (74-106)
--- NOTE | 2024-09-13 07:32 | PCM.PN.HOSP ---
Reason for Visit Reason for Visit: Diagnoses Acute and chronic respiratory failure with hypercapnia (09/05/24) Urinary tract infection, site not specified (09/05/24) Fracture of unspecified part of neck of left femur, initial encounter for closed fracture (09/05/24) terminal make up operator (current) use of anticoagulants (09/05/24) Subjective Subjective Patient is a 79-year-old gentleman with 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 Intubated in the ED due to metabolic encephalopathy secondary to hypercapnia. Patient subsequently underwent left femoral neck fracture repair on 09/09/2024 Objective Data Objective Data Vital Signs: Vital Signs Temp Pulse Resp BP Pulse Ox O2 Del Method O2 Flow Rate 100.0 F H 105 H 22 H 115/77 90 Mechanical Ventilator 40 09/13/24 07:00 09/13/24 07:19 09/13/24 07:19 09/13/24 07:00 09/13/24 07:19 09/13/24 07:00 09/09/24 12:35 FiO2 30 09/13/24 07:19 Oxygen Flow Rate (L/min) 40 Oxygen Delivery Method Mechanical Ventilator Weight: 71.9 kg Body Mass Index (BMI) 27.0 Intake & Output: Intake and Output for Last 24 Hours 09/11/24 09/12/24 09/13/24 23:59 23:59 23:59 Intake Total 2545.25 / 2580.98 2038.63 / 2398.63 530 / 530 Output Total 300 / 500 1850 / 2550 1400 / 1400 Balance 2245.25 / 2080.98 188.63 / -151.37 -870 / -870 Lab / Micro Data 09/13/24 04:00 09/13/24 04:00 Labs: Laboratory Results - last 24 hr 09/12/24 11:25: Ur Random Sodium 27, Urine Creatinine 82.80, Urine Potassium 27.2, Urine Chloride < 20 09/12/24 12:28: POC Glucose 144 H 09/12/24 14:02: Hgb 8.9 L, Hct 25.8 L 09/12/24 18:01: POC Glucose 98 09/12/24 23:51: POC Glucose 108 H 09/13/24 04:00: WBC 10.3, RBC 2.42 L, Hgb 7.4 L, Hct 22.1 L, MCV 91.3, MCH 30.6, MCHC 33.5, RDW Std Deviation 47.5 H, RDW Coeff of Larry 14.1, Plt Count 384, MPV 9.7, Immature Gran % (Auto) 1.900 H, Neut % (Auto) 74.5 H, Lymph % (Auto) 8.1 L, [place]age % (Auto) 10.2 H, Eos % (Auto) 4.6, Baso % (Auto) 0.7, Absolute Neuts (auto) 7.7, Absolute Lymphs (auto) 0.83, Nucleated RBC % 0, Sodium 141, Potassium 3.4, Chloride 103, Carbon Dioxide 24.2, Anion Gap 13, BUN 32 H, Creatinine 2.18 H, Estim Creat Clear Calc 25.82 L, Est GFR (MDRD) Non-Af 30 L, BUN/Creatinine Ratio 14.6, Glucose 134 H, Calcium 8.7 09/13/24 06:54: POC Glucose 124 H Micro: Microbiology 09/10/24 02:18 Blood Culture (Wb) - Left Forearm Blood Culture - Preliminary No growth in 48 hours. 09/10/24 02:20 Urine Catheter - Hendrix Urine Culture - Final Culture exhibits no growth. 09/10/24 02:49 Sputum, Expectorated/Coughed Gram Stain - Final 09/10/24 02:49 Sputum, Expectorated/Coughed Respiratory Culture - Final Presumptive C albicans 09/05/24 02:46 Blood Culture (Wb) - Anticubital Left Blood Culture - Final No growth in 5 days. 09/05/24 03:00 Blood Culture (Wb) - Left Hand Blood Culture - Final No growth in 5 days. 09/05/24 04:30 Sputum, Induced/Lukens Gram Stain - Final 09/05/24 04:30 Sputum, Induced/Lukens Respiratory Culture - Final Mixed normal respiratory rogelio. No Streptococcus pneumoniae, beta-hemolytic Streptococcus or Staphylococcus aureus isolated. 09/05/24 01:00 Urine, Clean Catch Urine Culture - Final Staphylococcus epidermidis Radiography Diagnostic Testing: Radiology Impression Chest X-Ray 09/10/24 03:00 IMPRESSION: No significant interval change as above. Reading Location: [id number] Chest X-Ray 09/11/24 03:55 IMPRESSION: Endotracheal tube appears satisfactory positioning, not significantly changed. Right PICC and nasogastric tube again noted. Scoliosis with deformity of the thorax. Deformity of the lung anatomy due to the scoliosis again seen. Difficult to exclude patchy perihilar opacities right lung, not significantly changed. Possible left base retrocardiac atelectasis, partial collapse, unchanged. Reading Location: [facility] Chest X-Ray 09/11/24 15:20 IMPRESSION: Cardiomegaly with pulmonary congestion and edema. Superimposed pneumonia cannot be excluded. Reading Location: [facility] Chest X-Ray 09/12/24 04:10 IMPRESSION: No significant interval change in appearance of the chest. Reading Location: [facility] Brain CT 09/12/24 13:35 IMPRESSION: 1. Generalized brain atrophy. 2. Small vessel ischemic/degenerative changes. 3. No acute intracranial hemorrhage, midline shift or mass effect. If symptoms persist, further evaluation with MRI is recommended. Reading Location: [facility] Physical Exam Narrative GENERAL: Sedated on the vent HEENT: ET tube in place EYES; Anicteric, Normal Conjunctiva NECK; supple, normal thyroid, RESPIRATORY: Diminished to auscultation CARDIOVASCULAR: Regular S1 S2, GI: soft, normoactive bowel sounds, : No Renal angle tenderness; EXTREMITIES: Edema involving both upper and lower extremity, MUSCULOSKELETAL: no muscle wasting NEURO: Sedated on the SKIN: No Rash PSYCH; unable to assess Assessment & Plan Assessment/Plan (1) Closed fracture of neck of left femur: QUALIFIERS: Encounter type: initial encounter Qualified Code(s): S72.002A - Fracture of unspecified part of neck of left femur, initial encounter for closed fracture PLAN: Plan Patient is a 79-year-old gentleman with 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 Intubated in the ED due to metabolic encephalopathy secondary to hypercapnia. Patient subsequently underwent left femoral neck fracture repair on 09/09/2024 . Acute on chronic hypoxic and hypercapnic respiratory failure ? Secondary to restrictive lung disease. Patient presented with altered mental status and elevated pCO2 patient was intubated and subsequently admitted to the intensive care unit. Vent management deferred to barge loader/critical care 2. Acute metabolic encephalopathy ? Secondary to above 3. Acute mechanical fall with left femoral neck fracture ? Patient underwent surgical repair on 09/09/2024 4. Acute kidney injury ? Patient had been empirically started on vancomycin and Zosyn do suspect drug-induced nephritis. Offending medications discontinued. Monitoring response to therapy with daily BMP.With patient kidney function continues to worsen consult was placed to nephrology 5. Anemia ? Secondary to chronic disorder monitoring H&H and transfuse if patient becomes symptomatic or hemoglobin falls below 7 6. Paroxysmal A-fib ? Patient is on on sotalol as well as systemic anticoagulation with apixaban.. Home medications continued 7. 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 Patient has significant complications including restrictive lung disease 8. Essential hypertension ? Patient blood pressure control remains labile we will continue with monitoring and adjust medications if warranted 9. Depression ? Patient is on venlafaxine, plan is to resume once off the event 10. Central sleep apnea ? Patient uses BiPAP at night will resume when patient is extubated 11 Chronic hypoxic and hypercapnic respiratory failure ? Patient is on continuous home oxygen during the day 12. BPH with lower urinary obstructive symptoms - Patient treated with tamsulosin, continued 13. Hypokalemia - Potassium this a.m. is 3.4 corrected per protocol, repeat labs ordered for monitoring unit. Also added magnesium level for a.m. 14. DVT prophylaxis ? On apixaban Charges/Coding Visit Charges Inpatient E&M: 28699 Subs Hosp L3
--- NOTE | 2024-09-13 07:55 | RAD_ITS ---
PROCEDURE: CHEST 1 VIEW (PORTABLE) 09/13/2024 REASON FOR EXAM: INTUBATED TECHNIQUE: Frontal view of the chest. COMPARISON: 09/12/2024 FINDINGS: Endotracheal tube again noted not significantly changed appears satisfactory position. Right PICC and nasogastric tube in stable position. Increased right lung opacity where pneumonia not entirely excluded. Otherwise lung findings are grossly unchanged. Cardiac silhouette again noted to be enlarged, unchanged. RAD/Chest 1 View (Portable) IMPRESSION: Support lines are in stable position. Increased right lung opacity where pneum onia not entirely excluded. Otherwise lung findings are grossly unchanged. Reading Location: [id number]
[2024-09-13] MEDS: APIXABAN 5 MG TABLET PO ×2 (08:23→20:12)
[2024-09-13] MEDS: Sotalol Hydrochloride 80 MG Tablet GT ×2 (08:23→20:12)
[2024-09-13] MEDS: dexMEDEtomidine 400 MCG in 0.9% Normal Saline (100mL Bag) 96 ML CONT INF (08:41)
--- NOTE | 2024-09-13 09:01 | PN.CC_ITS ---
Objective Data Objective Data Vital Signs: Vital Signs Last response 3 Temperature 38.0 C H 09/13/24 08:00 Temperature Source Core 09/13/24 08:00 Pulse Rate 105 H 09/13/24 08:00 Pulse Strength Normal (2+) 09/12/24 20:37 Respiratory Rate 22 H 09/13/24 08:00 Respiratory Effort Mechanically Ventilated 09/13/24 04:00 Respiratory Depth Normal 09/13/24 04:00 Respiratory Pattern Normal 09/13/24 04:00 Blood Pressure 162/105 H 09/13/24 08:00 Blood Pressure Mean 124 09/13/24 08:00 Blood Pressure Source Monitor 09/13/24 08:00 Blood Pressure Position Semi-Fowlers 09/13/24 08:00 Blood Pressure Location Left Arm 09/13/24 08:00 Pulse Ox 96 09/13/24 08:00 Oxygen Delivery Method Mechanical Ventilator 09/13/24 08:00 Oxygen Flow Rate (L/min) 40 09/09/24 12:35 Fraction of Inspired Oxygen (FIO2) 30 09/13/24 08:00 EtCo2 - Document during CPR and with ROSC 35 09/09/24 16:27 I&O: I&O Last 24 Hours 3 09/12/24 09/12/24 09/13/24 11:59 23:59 11:59 Intake Total 877.47 / 2398.63 1161.16 / 2398.63 1254.50 / 1254.50 Output Total 300 / 2550 1550 / 2550 1400 / 1400 Balance 577.47 / -151.37 -388.84 / -151.37 -145.50 / -145.50 I&O: Total Stay 3 09/04/24 23:32 thru 09/13/24 08:15 Intake Total 00998.83 Output Total 16493 Balance 53576.83 Current Meds Ordered / Administered: Current meds ordered / Administered 3 Generic Name Dose Route Start Last Admin Trade Name Freq PRN Reason Stop Dose Admin Acetaminophen 650 mg 09/05/24 13:55 09/10/24 23:00 Acetaminophen 650 Mg/20 Ml Udc GT 650 mg Q6H PRN PRN Administration Pain 1-10 or Fever Albuterol Sulfate 2.5 mg 09/05/24 05:29 09/08/24 09:14 Albuterol 2.5 Mg/3 Ml Vial.Neb. INHALATION 2.5 mg Q2H PRN PRN Administration SOB &/OR WHEEZING Apixaban 5 mg 09/11/24 22:00 09/13/24 08:23 Apixaban 5 Mg Tablet PO 5 mg BID NIURKA Administration Chlorhexidine Gluconate 1 each 09/06/24 10:00 09/13/24 06:31 Chlorhexidine Gluc 2% Cloth 1 Each [place] TOPICAL 1 each DAILY NIURKA Administration Chlorhexidine Gluconate 15 ml 09/06/24 10:00 09/12/24 21:41 Chlorhexidine 15 Ml PO 15 ml BID NIURKA Administration Glucagon 1 mg 09/05/24 05:29 Glucagon 1 Mg/Ml Syringe IM X1 PRN HYPOGLYCEMIA Protocol Fentanyl 100 mls @ 2.5 mls/hr 09/05/24 04:30 09/13/24 08:15 CONT INF 0 mcg/hr UD NIURKA 0 mls/hr Titration Protocol 25 MCG/HR Dextrose 250 mls @ 0 mls/hr 09/05/24 05:29 09/07/24 16:24 Dextrose 10%-Water IV Infused .Q0M PRN Infusion HYPOGLYCEMIA Protocol As Directed Sodium Chloride 250 mls @ 15 mls/hr 09/05/24 06:03 09/07/24 19:30 IV 0 mls/hr .[id number] PRN Infusion Saline Flush Sodium Chloride 250 mls @ 15 mls/hr 09/05/24 06:03 IV .[id number] PRN Additional IVPB Infusion Enteral Nutritional Formula 1,000 mls @ 20 mls/hr 09/08/24 09:55 09/13/24 08:02 Vital Af 1.2 Ryan Liquid GT 0 mls/hr .Q48H NIURKA Infusion Pantoprazole Sodium 40 mg/ 110 mls @ 330 mls/hr 09/10/24 10:00 09/12/24 10:35 Sodium Chloride IV Infused Q24 NIURKA Infusion Midazolam HCl 50 mg/ Sodium 100 mls @ 2 mls/hr 09/10/24 15:00 09/12/24 19:36 Chloride CONT INF Infused .Q50H NIURKA Titration Protocol 1 MG/HR Norepinephrine Bitartrate 8 mg 250 mls @ 9.375 mls/hr 09/10/24 16:15 09/12/24 22:43 / Sodium Chloride CONT INF Not Given .[id number] NIURKA Protocol 5 MCG/MIN Micafungin Sodium 100 mg/ 105 mls @ 100 mls/hr 09/11/24 10:30 09/12/24 11:53 Dextrose IV Infused Q24 ON LICENSE OF [facility] Infusion Dexmedetomidine HCl 400 mcg/ 100 mls @ 9 mls/hr 09/12/24 11:00 09/13/24 08:41 Sodium Chloride CONT INF 0.2 mcg/kg/hr .[id number] NIURKA 3.6 mls/hr Administration Protocol 0.5 MCG/KG/HR Losartan Potassium 50 mg 09/05/24 22:00 09/06/24 21:04 Losartan Potassium 50 Mg Tablet GT Not Given QHS ON LICENSE OF [facility] Protocol Midazolam HCl 0.5 mg 09/10/24 11:16 09/11/24 13:40 Midazolam 2 Mg/2 Ml Syringe IV 0.5 mg Q2H PRN PRN Administration AGITATION Morphine Sulfate 2 mg 09/10/24 11:15 Morphine 2 Mg/Ml Syringe IV Q3H PRN PRN Pain Score 4-5 Polyethylene Glycol 8.5 gm 09/05/24 07:43 09/11/24 21:16 Polyethylene Glycol 3350 17 Gm Packet GT 8.5 gm Q48H PRN Administration constipation Sodium Chloride 10 - 40 ml 09/05/24 06:03 09/13/24 06:31 0.9% Saline Lock 10 Ml Syringe IV 10 ml UD PRN Administration SALINE FLUSH Sotalol HCl 80 mg 09/05/24 10:00 09/13/24 08:23 Sotalol Hydrochloride 80 Mg Tablet GT 80 mg BID ON LICENSE OF [facility] Administration Protocol Tamsulosin HCl 0.4 mg 09/05/24 10:00 09/12/24 21:40 Tamsulosin Hcl 0.4 Mg Capsule PO Not Given BID ON LICENSE OF [facility] Venlafaxine HCl 75 mg 09/05/24 10:00 09/12/24 07:34 Venlafaxine Xr 75 Mg Capsule PO Not Given DAILY ON LICENSE OF [facility] Lab / Micro Data Attestation: I reviewed the patient's lab results. 09/13/24 04:00 09/13/24 04:00 Labs: Laboratory Results - last 24 hr 09/12/24 11:25: Ur Random Sodium 27, Urine Creatinine 82.80, Urine Potassium 27.2, Urine Chloride < 20 09/12/24 12:28: POC Glucose 144 H 09/12/24 14:02: Hgb 8.9 L, Hct 25.8 L 09/12/24 18:01: POC Glucose 98 09/12/24 23:51: POC Glucose 108 H 09/13/24 04:00: WBC 10.3, RBC 2.42 L, Hgb 7.4 L, Hct 22.1 L, MCV 91.3, MCH 30.6, MCHC 33.5, RDW Std Deviation 47.5 H, RDW Coeff of Larry 14.1, Plt Count 384, MPV 9.7, Immature Gran % (Auto) 1.900 H, Neut % (Auto) 74.5 H, Lymph % (Auto) 8.1 L, Kenton % (Auto) 10.2 H, Eos % (Auto) 4.6, Baso % (Auto) 0.7, Absolute Neuts (auto) 7.7, Absolute Lymphs (auto) 0.83, Nucleated RBC % 0, Sodium 141, Potassium 3.4, Chloride 103, Carbon Dioxide 24.2, Anion Gap 13, BUN 32 H, Creatinine 2.18 H, E stim Creat Clear Calc 25.82 L, Est GFR (MDRD) Non-Af 30 L, BUN/Creatinine Ratio 14.6, Glucose 134 H, Calcium 8.7 09/13/24 06:54: POC Glucose 124 H Micro: Microbiology 09/10/24 02:18 Blood Culture (Wb) - Left Forearm Blood Culture - Preliminary No growth in 48 hours. 09/10/24 02:20 Urine Catheter - Hadley Urine Culture - Final Culture exhibits no growth. 09/10/24 02:49 Sputum, Expectorated/Coughed Gram Stain - Final 09/10/24 02:49 Sputum, Expectorated/Coughed Respiratory Culture - Final Presumptive C albicans ABG Data ABG results: ABG 09/11/24 09/12/24 15:22 05:04 Specimen Type ART ART Sample Site L Radial R Radial pH 7.49 H 7.52 H Bicarbonate Actual 27.9 H 21.7 L Total CO2 29 23 Base Excess 5 H -1 O2 Saturation 100 H 98 O2 % 100.0 30.0 ABG pCO2 36.8 26.4 L ABG pO2 411 H* 94 Stephane Test Positive Positive Respiration Rate 18 18 O2 Delivery Device Adult Vent Adult Vent Vent Mode AC AC Tidal Volume 400.0 400.0 POC PEEP 5 5 Crit Call To/Read Back Yes Blood Gas Notified Whom dand Blood Gas Notified Time 15:25:02 Imaging Radiology Impression Chest X-Ray 09/10/24 03:00 IMPRESSION: No significant interval change as above. Reading Location: [facility] Chest X-Ray 09/11/24 03:55 IMPRESSION: Endotracheal tube appears satisfactory positioning, not significantly changed. Right PICC and nasogastric tube again noted. Scoliosis with deformity of the thorax. Deformity of the lung anatomy due to the scoliosis again seen. Difficult to exclude patchy perihilar opacities right lung, not significantly changed. Possible left base retrocardiac atelectasis, partial collapse, unchanged. Reading Location: [facility] Chest X-Ray 09/11/24 15:20 IMPRESSION: Cardiomegaly with pulmonary congestion and edema. Superimposed pneumonia cannot be excluded. Reading Location: [facility] Chest X-Ray 09/12/24 04:10 IMPRESSION: No significant interval change in appearance of the chest. Reading Location: [facility] Brain CT 09/12/24 13:35 IMPRESSION: 1. Generalized brain atrophy. 2. Small vessel ischemic/degenerative changes. 3. No acute intracranial hemorrhage, midline shift or mass effect. If symptoms persist, further evaluation with MRI is recommended. Reading Location: [facility] Chest X-Ray 09/13/24 07:55 IMPRESSION: Support lines are in stable position. Increased right lung opacity where pneumonia not entirely excluded. Otherwise lung findings are grossly unchanged. Reading Location: [facility] CXR reviewed personally, when correcting for penetration, R side seems more dense, but same morphology of infiltrate Assessment and Plan . 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 POD2, risk for UTI and VAP, has micafungin from sputum already Plan: micafungin (TERRENCE) instead of fluconazole for c albicans PNA add precedex drip with modified maximum 2/2 potential hypotension, but EF intact will DC versed and fent likely will need to extubated to home AVAPS or CPAP given nosocomial organisms already in sputum, need extubation YAO and Hadley out YAO Nikos Laura MD [facility] Access TeleCare Critical Care Time: 56 min The entirety of this encounter was done via Telemedicine Physical Exam Narrative chronically ill appearing edematous appearing nontoxic/nondiaphoretic pale RASS -2 Lung coarse in bases Hadley in place Subjective Subjective CC: Unable to obtain due to mech vent and sedation HPI: 79yoM with Polio related scoliosis, multiple hospitalizations in the last 6 months and recent fall and fx of hip requiring repair. Has failed to be extubated since OR due to encephalopathy and agitation, and per nursing has required prolonged sedation weans in the past as well. Due to hip and hardware, it was preferred that he not be ZAMORANO aggressively during the extubation process. Notably, he uses AVAPS home ventilator at night for sleep. 09/12 - POD 2; has hadley and ETT; 200 fentanyl and 1 versed drip; norepinephrine at 5mcg/min 2/2 hypotension. 18/400/5/28%. Sister at bedside is very concerned about edemea in B/L UE and LE. He has been undergoing diuresis, but UOP has fallen off. 09/13 - patient restless off sedation, but opens eyes and redirectable; Hgb drop 1.5gm, but no visible hematoma or bleeding related to hip or wound or RP or thigh; CXR showing worsening opacity in the R, probably atelectasis. No blood in ETT; patient tachycardic; plts up; WBC down; off pressors ROS could not be obtained as above
[2024-09-13] MEDS: Chlorhexidine 15 ML PO ×2 (09:41→20:13)
[2024-09-13] MEDS: Pantoprazole Sodium 40 MG in 0.9% Normal Saline (100mL MB+) 100 ML 330 MG IV (09:41)
[2024-09-13] MEDS: Micafungin Sodium 100 MG in Dextrose 5%-Water (100mL Bag) 100 ML IV (10:29)
[2024-09-13] MEDS: Vital AF 1.2 Cal Liquid 1,000 ML 60 ML GT (14:14)
[2024-09-13] MEDS: Lactated Ringers 1,000 ML 999 ML IV (17:42)
[2024-09-13 17:52] LABS: Bedside Glucose 126 mg/dL (74-106)
[2024-09-13] MEDS: Acetaminophen 650 MG/20 ML UDC GT (20:19)
[2024-09-13] MEDS: Polyethylene Glycol 3350 17 GM PACKET 8.5 GM GT (20:19)
[2024-09-13 23:50] LABS: Bedside Glucose 137 mg/dL (74-106)
[2024-09-14] VITALS (38 sets, daily range): BP systolic 79–201; BP diastolic 61–108; PULSE 65–94; RESP 12–38; TEMP 37.2–37.7; O2SAT 91–100; BMI 26.7
[2024-09-14 03:53] LABS: Absolute Lymphocyte Count 0.72 X10^3/uL (0.83-4.51); Basophil# 0.08 X10^3/uL; Basophil% 0.7 % (0-1); Eosinophil# 0.34 X10^3/uL; Hematocrit 29.9 % (40-54); Lymphocyte # 0.72 X10^3/ul (0.83-4.51); Lymphocyte % 6.3 % (19-41); Mean Corp Hgb Conc 33.4 g/dL (32-36); Mean Corpuscular Hgb 30.7 pg (27.0-32.0); Mean Corpuscular Volume 91.7 fL (80-94); Mean Platelet Vol. 9.2 fl (6.2-12.0); Monocyte% 9.7 % (0-10); NRBC Flagged by Analyzer 0 % (0-5); Neutrophil # 8.96 X10^3/uL (2.7-7.7); Neutrophil % 78.8 % (47-70); Platelet Count 430 K/mm3 (150-450); RBC Distribution Width SD 47.3 fl (35.1-43.9); Red Blood Count 3.26 M/mm3 (4.6-6.2); White Blood Count 11.4 K/mm3 (4.4-11.0)
[2024-09-14] MEDS: fentaNYL drip 100 ML 15 MCG CONT INF (04:00)
[2024-09-14] MEDS: 0.9% Saline Lock 10 ML Syringe IV ×4 (04:24→22:43)
[2024-09-14] MEDS: CHLORHEXIDINE GLUC 2% CLOTH 1 EACH TOWELETTE TOPICAL (04:24)
[2024-09-14] MEDS: dexMEDEtomidine 400 MCG in 0.9% Normal Saline (100mL Bag) 96 ML CONT INF (04:24)
[2024-09-14 04:48] LABS: Anion Gap 14 (5-15); BUN 38 mg/dL (4-19); BUN/Creat Ratio 18.9 RATIO (10-20); Calcium,Total 8.9 mg/dL (7.6-11.0); Carbon Dioxide 23.9 mmol/L (21.0-32.0); Chloride 103 mmol/L (98-108); Creatinine, Serum 1.99 mg/dL (0.70-1.20); EST Glomerular Filtration Rate 34 (>60); Estimated Creatinine Clearance 26.03 ml/min (50-250); Glucose 161 mg/dL (70-99); Magnesium 1.8 mg/dL (1.5-2.2); Phosphorus 4.3 mg/dL (2.7-4.5); Potassium 3.2 mmol/L (3.3-5.1); Sodium Level 141 mmol/L (133-145)
[2024-09-14] MEDS: TITRATION PARAMETER CHANGE 1 EACH IV (05:19)
[2024-09-14 05:37] LABS: Bedside Glucose 133 mg/dL (74-106)
[2024-09-14] MEDS: Vital AF 1.2 Cal Liquid 1,000 ML 60 ML GT (06:41)
--- NOTE | 2024-09-14 07:29 | PCM.PN.HOSP ---
Reason for Visit Reason for Visit: Diagnoses Acute and chronic respiratory failure with hypercapnia (09/05/24) Urinary tract infection, site not specified (09/05/24) Fracture of unspecified part of neck of left femur, initial encounter for closed fracture (09/05/24) [facility] (current) use of anticoagulants (09/05/24) Subjective Subjective Patient seen remains on the vent patient is spiking fever did undertake an infectious workup Objective Data Objective Data Vital Signs: Vital Signs Temp Pulse Resp BP Pulse Ox O2 Del Method O2 Flow Rate 99.3 F H 83 20 H 139/104 H 97 Mechanical Ventilator 40 09/14/24 06:00 09/14/24 07:00 09/14/24 07:00 09/14/24 07:00 09/14/24 07:00 09/14/24 07:00 09/09/24 12:35 FiO2 40 09/14/24 07:00 Oxygen Flow Rate (L/min) 40 Oxygen Delivery Method Mechanical Ventilator Weight: 71 kg Body Mass Index (BMI) 26.7 Intake & Output: Intake and Output for Last 24 Hours 09/12/24 09/13/24 09/14/24 23:59 23:59 23:59 Intake Total 2038.63 / 2398.63 2984.84 / 3000.04 1224.90 / 1224.90 Output Total 1850 / 2550 2425 / 2425 250 / 250 Balance 188.63 / -151.37 559.84 / 575.04 974.90 / 974.90 Lab / Micro Data 09/14/24 03:45 09/14/24 03:45 Labs: Laboratory Results - last 24 hr 09/13/24 17:34: POC Glucose 126 H 09/13/24 23:33: POC Glucose 137 H 09/14/24 03:45: WBC 11.4 H, RBC 3.26 L, Hgb 10.0 L, Hct 29.9 L, MCV 91.7, MCH 30.7, MCHC 33.4, RDW Std Deviation 47.3 H, RDW Coeff of Larry 14.0, Plt Count 430, MPV 9.2, Immature Gran % (Auto) 1.500 H, Neut % (Auto) 78.8 H, Lymph % (Auto) 6.3 L, Dare % (Auto) 9.7, Eos % (Auto) 3.0, Baso % (Auto) 0.7, Absolute Neuts (auto) 9.0 H, Absolute Lymphs (auto) 0.72 L, Nucleated RBC % 0, Sodium 141, Potassium 3.2 L, Chloride 103, Carbon Dioxide 23.9, Anion Gap 14, BUN 38 H, Creatinine 1.99 H, Estim Creat Clear Calc 26.03 L, Est GFR (MDRD) Non-Af 34 L, BUN/Creatinine Ratio 18.9, Glucose 161 H, Calcium 8.9, Phosphorus 4.3, Magnesium 1.8 09/14/24 05:13: POC Glucose 133 H Micro: Microbiology 09/10/24 02:18 Blood Culture (Wb) - Left Forearm Blood Culture - Preliminary No growth in 48 hours. 09/10/24 02:20 Urine Catheter - Hendrix Urine Culture - Final Culture exhibits no growth. 09/10/24 02:49 Sputum, Expectorated/Coughed Gram Stain - Final 09/10/24 02:49 Sputum, Expectorated/Coughed Respiratory Culture - Final Presumptive C albicans 09/05/24 02:46 Blood Culture (Wb) - Anticubital Left Blood Culture - Final No growth in 5 days. 09/05/24 03:00 Blood Culture (Wb) - Left Hand Blood Culture - Final No growth in 5 days. 09/05/24 04:30 Sputum, Induced/Lukens Gram Stain - Final 09/05/24 04:30 Sputum, Induced/Lukens Respiratory Culture - Final Mixed normal respiratory rogelio. No Streptococcus pneumoniae, beta-hemolytic Streptococcus or Staphylococcus aureus isolated. 09/05/24 01:00 Urine, Clean Catch Urine Culture - Final Staphylococcus epidermidis Radiography Diagnostic Testing: Radiology Impression Chest X-Ray 09/13/24 07:55 IMPRESSION: Support lines are in stable position. Increased right lung opacity where pneumonia not entirely excluded. Otherwise lung findings are grossly unchanged. Reading Location: [facility] Physical Exam Narrative GENERAL: Awake on the vent on the vent HEENT: ET tube in place EYES; Anicteric, Normal Conjunctiva NECK; supple, normal thyroid, RESPIRATORY: Diminished to auscultation CARDIOVASCULAR: Regular S1 S2, GI: soft, normoactive bowel sounds, : No Renal angle tenderness; EXTREMITIES: Edema involving both upper and lower extremity, MUSCULOSKELETAL: no muscle wasting NEURO: Awake on the vent SKIN: No Rash PSYCH; unable to assess Assessment & Plan Assessment/Plan (1) Closed fracture of neck of left femur: QUALIFIERS: Encounter type: initial encounter Qualified Code(s): S72.002A - Fracture of unspecified part of neck of left femur, initial encounter for closed fracture PLAN: Plan Patient is a 79-year-old gentleman with 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 Intubated in the ED due to metabolic encephalopathy secondary to hypercapnia. Patient subsequently underwent left femoral neck fracture repair on 09/09/2024 1. Acute on chronic hypoxic and hypercapnic respiratory failure ? Secondary to restrictive lung disease. Patient presented with altered mental status and elevated pCO2 patient was intubated and subsequently admitted to the intensive care unit. Vent management deferred to picking belt operator/critical care ? 09/14/2024; patient seen remains on the vent patient continues to spike fevers subsequently ordered urine culture and urinalysis with reflex culture, blood culture, checks x-ray, COVID assay as well as viral respiratory panel 2. Acute metabolic encephalopathy ? Secondary to above 09/14/2024; a complete assessment will be performed once patient is off the vent 3. Acute mechanical fall with left femoral neck fracture ? Patient underwent surgical repair on 09/09/2024 4. Acute kidney injury ? Patient had been empirically started on vancomycin and Zosyn do suspect drug-induced nephritis. Offending medications discontinued. Monitoring response to therapy with daily BMP.With patient kidney function continues to worsen consult was placed to nephrology ? 09/14/2024; ordered kidney ultrasound to rule out obstructive uropathy. Patient creatinine 1.9 this a.m. repeat labs ordered in a.m. 5. Anemia ? Secondary to chronic disorder monitoring H&H and transfuse if patient becomes symptomatic or hemoglobin falls below 7 6. Paroxysmal A-fib ? Patient is on on sotalol as well as systemic anticoagulation with apixaban.. Home medications continued 7. 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 Patient has significant complications including restrictive lung disease 8. Essential hypertension ? Patient blood pressure control remains labile we will continue with monitoring and adjust medications if warranted 9. Depression ? Patient is on venlafaxine, plan is to resume once off the event 10. Central sleep apnea ? Patient uses BiPAP at night will resume when patient is extubated 11 Chronic hypoxic and hypercapnic respiratory failure ? Patient is on continuous home oxygen during the day 12. BPH with lower urinary obstructive symptoms - Patient treated with tamsulosin, continued 13. Hypokalemia - Potassium this a.m. is 3.4 corrected per protocol, repeat labs ordered for monitoring unit. Also added magnesium level for a.m. ? 09/14/2024; patient potassium remains low additional replacement given repeat labs ordered for a.m. 14. DVT prophylaxis ? On apixaban Charges/Coding Visit Charges Inpatient E&M: 24023 Subs Hosp L3
--- NOTE | 2024-09-14 07:45 | RAD_ITS ---
PROCEDURE: CHEST 1 VIEW (PORTABLE) 09/14/2024 REASON FOR EXAM: FEVER TECHNIQUE: Frontal view of the chest. COMPARISON: 09/13/2024 FINDINGS: Endotracheal tube tip 4.6 cm above the gail. Right PICC and nasogastric tube in stable position. Increased right lung opacity where pneumonia not entirely excluded. Otherwise lung findings are grossly unchanged. Cardiac silhouette again noted to be enlarged, unchanged. RAD/Chest 1 View (Portable) IMPRESSION: Endotracheal tube tip 4.6 cm above the gail. Otherwise stable exam. Reading Location: [id number]
[2024-09-14 08:48] LABS: Mucous, Urine 0 SEEN /hpf (<or=2+); Squamous Epithelial Cells - UA 0 SEEN /hpf (0-5)
[2024-09-14 09:23] LABS: Color, Urine Yellow (Yellow); Glucose, Dipstick Normal (Normal); Ketone-Dipstick Negative (Negative); Leukocyte Esterase-Dipstick 100 /ul (Negative); Nitrite-Dipstick Negative (Negative); Occult Blood-Urine 250 /ul (Negative); Protein-Dipstick 100 mg/dl (Negative); Urine Bilirubin Dipstick Negative (Negative); Urine Clarity Sl. Cloudy (Clear); Urine Urobilinogen Normal (Normal)
[2024-09-14] MEDS: Potassium Chloride 10mEq/100mL 10 MEQ/100 ML IV.SOLN. 100 MEQ IV BOLUS ×4 (09:24→14:59)
[2024-09-14 09:29] LABS: Bacteria 1+ /hpf (None Seen); Red Blood Cells-Urine 10-25 SEEN /hpf (0-5); White Blood Cells 5-10 SEEN /hpf (0-5)
--- NOTE | 2024-09-14 09:53 | PN.CC_ITS ---
Objective Data Objective Data Vital Signs: Vital Signs Last response 3 Temperature 37.4 C H 09/14/24 06:00 Temperature Source Core 09/14/24 06:00 Pulse Rate 84 09/14/24 07:10 Pulse Strength Weak (1+) 09/13/24 19:45 Respiratory Rate 25 H 09/14/24 07:10 Respiratory Effort Mechanically Ventilated 09/14/24 04:00 Respiratory Depth Normal 09/14/24 04:00 Respiratory Pattern Normal 09/14/24 07:10 Blood Pressure 139/104 H 09/14/24 07:00 Blood Pressure Mean 115 09/14/24 07:00 Blood Pressure Source Monitor 09/14/24 07:00 Blood Pressure Position Semi-Fowlers 09/14/24 07:00 Blood Pressure Location Left Arm 09/14/24 07:00 Pulse Ox 98 09/14/24 07:10 Oxygen Delivery Method Mechanical Ventilator 09/14/24 07:00 Oxygen Flow Rate (L/min) 40 09/09/24 12:35 Fraction of Inspired Oxygen (FIO2) 30 09/14/24 07:10 EtCo2 - Document during CPR and with ROSC 35 09/09/24 16:27 I&O: I&O Last 24 Hours 3 09/13/24 09/13/24 09/14/24 11:59 23:59 11:59 Intake Total 1391.26 / 3000.04 1593.58 / 3000.04 1224.90 / 1224.90 Output Total 1400 / 2425 1025 / 2425 250 / 250 Balance -8.74 / 575.04 568.58 / 575.04 974.90 / 974.90 I&O: Total Stay 3 09/04/24 23:32 thru 09/14/24 07:00 Intake Total 12303.07 Output Total 24135 Balance 03072.07 Current Meds Ordered / Administered: Current meds ordered / Administered 3 Generic Name Dose Route Start Last Admin Trade Name Freq PRN Reason Stop Dose Admin Acetaminophen 650 mg 09/05/24 13:55 09/13/24 20:19 Acetaminophen 650 Mg/20 Ml Udc GT 650 mg Q6H PRN PRN Administration Pain 1-10 or Fever Acetylcysteine 800 mg 09/14/24 09:00 Acetylcysteine 800 Mg/4 Ml Vial.Neb. INHALATION 09/19/24 23:59 Q6H.RT NIURKA Albuterol Sulfate 2.5 mg 09/05/24 05:29 09/08/24 09:14 Albuterol 2.5 Mg/3 Ml Vial.Neb. INHALATION 2.5 mg Q2H PRN PRN Administration SOB &/OR WHEEZING Albuterol/Ipratropium 3 ml 09/14/24 09:00 Ipratropium/Albuterol Sulfate 3 Ml Ampul.Neb INHALATION 09/19/24 23:59 Q6H.RT NIURKA Apixaban 5 mg 09/11/24 22:00 09/13/24 20:12 Apixaban 5 Mg Tablet PO 5 mg BID NIURKA Administration Chlorhexidine Gluconate 1 each 09/06/24 10:00 09/14/24 04:24 Chlorhexidine Gluc 2% Cloth 1 Each [place] TOPICAL 1 each DAILY NIURKA Administration Chlorhexidine Gluconate 15 ml 09/06/24 10:00 09/13/24 20:13 Chlorhexidine 15 Ml PO 15 ml BID NIURKA Administration Glucagon 1 mg 09/05/24 05:29 Glucagon 1 Mg/Ml Syringe IM X1 PRN HYPOGLYCEMIA Protocol Fentanyl 100 mls @ 2.5 mls/hr 09/05/24 04:30 09/14/24 07:00 CONT INF 150 mcg/hr UD NIURKA 15 mls/hr Titration Protocol 25 MCG/HR Dextrose 250 mls @ 0 mls/hr 09/05/24 05:29 09/07/24 16:24 Dextrose 10%-Water IV Infused .Q0M PRN Infusion HYPOGLYCEMIA Protocol As Directed Sodium Chloride 250 mls @ 15 mls/hr 09/05/24 06:03 09/07/24 19:30 IV 0 mls/hr .[id number] PRN Infusion Saline Flush Sodium Chloride 250 mls @ 15 mls/hr 09/05/24 06:03 IV .[id number] PRN Additional IVPB Infusion Enteral Nutritional Formula 1,000 mls @ 20 mls/hr 09/08/24 09:55 09/14/24 06:41 Vital Af 1.2 Ryan Liquid GT 60 mls/hr .Q48H NIURKA Administration Midazolam HCl 50 mg/ Sodium 100 mls @ 2 mls/hr 09/10/24 15:00 09/12/24 19:36 Chloride CONT INF Infused .Q50H NIURKA Titration Protocol 1 MG/HR Norepinephrine Bitartrate 8 mg 250 mls @ 9.375 mls/hr 09/10/24 16:15 09/14/24 00:17 / Sodium Chloride CONT INF Not Given .[id number] NIURKA Protocol 5 MCG/MIN Micafungin Sodium 100 mg/ 105 mls @ 100 mls/hr 09/11/24 10:30 09/13/24 12:55 Dextrose IV Infused Q24 NIURKA Infusion Dexmedetomidine HCl 400 mcg/ 100 mls @ 8.875 mls/hr 09/12/24 11:00 09/14/24 07:00 Sodium Chloride CONT INF 0.2 mcg/kg/hr .[id number] NIURKA 3.6 mls/hr Titration Protocol 0.5 MCG/KG/HR Pantoprazole Sodium 40 mg/ 100 mls @ 330 mls/hr 09/14/24 10:00 Sodium Chloride IV Q24 NIURKA Potassium Chloride 10 meq in 100 mls @ 100 mls/hr 09/14/24 08:00 09/14/24 09:24 IV BOLUS 09/14/24 11:59 100 mls/hr Q1H NIURKA Administration Losartan Potassium 50 mg 09/05/24 22:00 09/06/24 21:04 Losartan Potassium 50 Mg Tablet GT Not Given QHS [facility] Protocol Midazolam HCl 0.5 mg 09/10/24 11:16 09/11/24 13:40 Midazolam 2 Mg/2 Ml Syringe IV 0.5 mg Q2H PRN PRN Administration AGITATION Morphine Sulfate 2 mg 09/10/24 11:15 Morphine 2 Mg/Ml Syringe IV Q3H PRN PRN Pain Score 4-5 Polyethylene Glycol 8.5 gm 09/05/24 07:43 09/13/24 20:19 Polyethylene Glycol 3350 17 Gm Packet GT 8.5 gm Q48H PRN Administration constipation Sodium Chloride 10 - 40 ml 09/05/24 06:03 09/14/24 04:24 0.9% Saline Lock 10 Ml Syringe IV 20 ml UD PRN Administration SALINE FLUSH Sotalol HCl 80 mg 09/05/24 10:00 09/13/24 20:12 Sotalol Hydrochloride 80 Mg Tablet GT 80 mg BID NIURKA Administration Protocol Tamsulosin HCl 0.4 mg 09/05/24 10:00 09/13/24 20:09 Tamsulosin Hcl 0.4 Mg Capsule PO Not Given BID [facility] Venlafaxine HCl 75 mg 09/05/24 10:00 09/13/24 09:42 Venlafaxine Xr 75 Mg Capsule PO Not Given DAILY [facility] Lab / Micro Data Attestation: I reviewed the patient's lab results. 09/14/24 03:45 09/14/24 03:45 Labs: Laboratory Results - last 24 hr 09/13/24 17:34: POC Glucose 126 H 09/13/24 23:33: POC Glucose 137 H 09/14/24 03:45: WBC 11.4 H, RBC 3.26 L, Hgb 10.0 L, Hct 29.9 L, MCV 91.7, MCH 30.7, MCHC 33.4, RDW Std Deviation 47.3 H, RDW Coeff of Larry 14.0, Plt Count 430, MPV 9.2, Immature Gran % (Auto) 1.500 H, Neut % (Auto) 78.8 H, Lymph % (Auto) 6.3 L, [place] % (Auto) 9.7, Eos % (Auto) 3.0, Baso % (Auto) 0.7, Absolute Neuts (auto) 9.0 H, Absolute Lymphs (auto) 0.72 L, Nucleated RBC % 0, Sodium 141, P otassium 3.2 L, Chloride 103, Carbon Dioxide 23.9, Anion Gap 14, BUN 38 H, C reatinine 1.99 H, Estim Creat Clear Calc 26.03 L, Est GFR (MDRD) Non-Af 34 L, BUN/Creatinine Ratio 18.9, Glucose 161 H, Calcium 8.9, Phosphorus 4.3, Magnesium 1.8 09/14/24 05:13: POC Glucose 133 H 09/14/24 08:15: Urine Color Yellow, Urine Clarity Sl. Cloudy, Urine pH 6.0, Ur Specific [place] 1.020, Urine Protein 100 H, Urine Glucose (UA) Normal, Urine Ketones Negative, Urine Occult Blood 250 H, Urine Nitrite Negative, Urine Bilirubin Negative, Urine Urobilinogen Normal, Ur Leukocyte Esterase 100 H, Urine RBC 10-25 SEEN, Urine WBC 5-10 SEEN, Ur Squamous Epith Cells 0 SEEN, Urine Bacteria 1+, Urine Mucus 0 SEEN Micro: Microbiology 09/14/24 08:40 Urine Catheter - [place] Legionella Antigen - Final 09/14/24 08:40 Urine Catheter - [place] Streptococcus pneumoniae Antigen (M - Final 09/14/24 08:28 Mucosa - Nose Coronavirus COVID-19 PCR - Final 09/14/24 08:28 Mucosa - Nose Influenza & RSV (PCR) - Final Imaging Radiology Impression Chest X-Ray 09/14/24 07:45 IMPRESSION: Endotracheal tube tip 4.6 cm above the agil. Otherwise stable exam. Reading Location: [id number] Assessment and Plan . 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 POD2, risk for UTI and VAP, has micafungin from sputum already Plan: micafungin (TERRENCE) instead of fluconazole for c albicans PNA extubate to AVAPS 18/300/5-10/ today chest PT q6h per R Tprotocol mucomyst may neet NT suction too, will see Nikos Laura MD [facility] Access TeleCare Critical Care Time: 56 min The entirety of this encounter was done via Telemedicine Physical Exam Narrative GENERAL: Awake on the vent on the vent HEENT: ET tube in place EYES; Anicteric, Normal Conjunctiva NECK; supple, normal thyroid, RESPIRATORY: Diminished to auscultation CARDIOVASCULAR: Regular S1 S2, GI: soft, normoactive bowel sounds, : No Renal angle tenderness; EXTREMITIES: Edema involving both upper and lower extremity, MUSCULOSKELETAL: no muscle wasting NEURO: Awake on the vent SKIN: No Rash PSYCH; unable to assess Const alert and no apparent distress General Appearance: cooperative Eyes PERRL, EOMs intact bilaterally, conjunctivae normal and no scleral icterus Neck no JVD Resp normal respiratory effort Subjective Subjective CC: Unable to obtain due to mech vent and sedation HPI: 79yoM with Polio related scoliosis, multiple hospitalizations in the last 6 months and recent fall and fx of hip requiring repair. Has failed to be extubated since OR due to encephalopathy and agitation, and per nursing has required prolonged sedation weans in the past as well. Due to hip and hardware, it was preferred that he not be ZAMORANO aggressively during the extubation process. Notably, he uses AVAPS home ventilator at night for sleep. 5/23 - POD 2; has hadley and ETT; 200 fentanyl and 1 versed drip; norepinephrine at 5mcg/min 2/2 hypotension. 18/400/5/28%. Sister at bedside is very concerned about edemea in B/L UE and LE. He has been undergoing diuresis, but UOP has fallen off. 09/13 - patient restless off sedation, but opens eyes and redirectable; Hgb drop 1.5gm, but no visible hematoma or bleeding related to hip or wound or RP or thigh; CXR showing worsening opacity in the R, probably atelectasis. No blood in ETT; patient tachycardic; plts up; WBC down; off pressors 09/14 - awake and following, less restless; Hgb stable no transfusion; toelrating PSV 08/25 30% on SBT ROS could not be obtained as above
--- NOTE | 2024-09-14 10:21 | CPS ---
Addendum entered by Maribel Palacios 09/14/24 10:23: also ordered Q6 scheduled treatments and chest vest Original Note: post extubation pt was placed on our BiPap with the settings of RR 18 Vt 300 IPAP max10 min [address] Laura
[2024-09-14] MEDS: Pantoprazole Sodium 40 MG in 0.9% Normal Saline (100mL MB+) 100 ML 330 MG IV (10:30)
[2024-09-14] MEDS: Micafungin Sodium 100 MG in Dextrose 5%-Water (100mL Bag) 100 ML IV (10:57)
[2024-09-14] MEDS: Albuterol 2.5 MG/3 ML VIAL.NEB. INHALATION (10:59)
[2024-09-14 11:01] LABS: Allen Test Positive; Base Excess 2 mmol/L (-2 to +2); Bicarbonate 28.9 mmol/L (22-26); Blood Gas Specimen Type ART; Mode Not entered; O2 Delivery Device BiPAP; PO2 79 mmHG (75-100); SITE R Radial; SO2 94 % (95-99); Total Carbon Dioxide 31 mmol/L; pCO2 60.5 mmHg (35-45); pH 7.29 (7.35-7.45)
[2024-09-14 11:16] LABS: M R Staph aureus DNA By PCR Negative (Negative); Probe Check PASS; Specimen Processing Control PASS
[2024-09-14] MEDS: Acetylcysteine 800 MG/4 ML VIAL.NEB. INHALATION ×2 (13:12→18:55)
[2024-09-14] MEDS: Ipratropium/Albuterol Sulfate 3 ML AMPUL.NEB INHALATION ×2 (13:12→18:55)
[2024-09-14] MEDS: Morphine 2 MG/ML Syringe IV ×2 (13:53→21:23)
--- NOTE | 2024-09-14 15:19 | PCM.PN.BLA ---
Progress Note Consult is acknowledged. 79 years old is in ICU setting setting with sepsis and hypotension have developed acute kidney injury with creatinine going as high as 2.11 As of yesterday. With antibiotic treatment, pressors, volume expansion creatinine improved today down to 1.99. He makes urine, no acidosis, no hyperkalemia. Will get to him as soon as possible
[2024-09-14] MEDS: Alteplase 2 MG/2 ML Vial IV (15:30)
[2024-09-14 20:07] LABS: Bedside Glucose 92 mg/dL (74-106)
[2024-09-14 21:51] LABS: Allen Test Positive; Base Excess 4 mmol/L (-2 to +2); Bicarbonate 28.3 mmol/L (22-26); Blood Gas Specimen Type ART; Mode Not entered; O2 Delivery Device AVAPS; PEEP 8; PO2 88 mmHG (75-100); RR 16; SITE R Radial; SO2 97 % (95-99); Total Carbon Dioxide 30 mmol/L; pCO2 45.5 mmHg (35-45)
[2024-09-14] MEDS: dexMEDEtomidine 400 MCG in 0.9% Normal Saline (100mL Bag) 96 ML 8.9 MCG CONT INF (22:15)
[2024-09-14] MEDS: Metoprolol Tartrate 5 MG/5 ML Vial 2.5 MG IV (22:42)
[2024-09-15] VITALS (36 sets, daily range): BP systolic 102–158; BP diastolic 58–126; PULSE 52–82; RESP 16–33; TEMP 36.6–37.3; O2SAT 90–100; BMI 26.2
[2024-09-15 00:42] LABS: Bedside Glucose 122 mg/dL (74-106)
[2024-09-15] MEDS: Ipratropium/Albuterol Sulfate 3 ML AMPUL.NEB INHALATION ×4 (01:10→18:55)
[2024-09-15] MEDS: Acetylcysteine 800 MG/4 ML VIAL.NEB. INHALATION ×4 (01:10→18:55)
[2024-09-15 05:00] LABS: Absolute Lymphocyte Count 0.61 X10^3/uL (0.83-4.51); Absolute Neutrophil Count 9.7 X10^3/uL (2.0-7.7); Basophil# 0.09 X10^3/uL; Basophil% 0.8 % (0-1); Eosinophil# 0.01 X10^3/uL; Eosinophils% 0.1 % (0-5); Hematocrit 29.2 % (40-54); Hemoglobin 9.8 g/dL (13.0-16.5); Lymphocyte # 0.61 X10^3/ul (0.83-4.51); Lymphocyte % 5.4 % (19-41); Mean Corp Hgb Conc 33.6 g/dL (32-36); Mean Corpuscular Hgb 30.6 pg (27.0-32.0); Mean Corpuscular Volume 91.3 fL (80-94); Mean Platelet Vol. 9.2 fl (6.2-12.0); Monocyte# 0.81 X10^3/uL; Monocyte% 7.1 % (0-10); NRBC Flagged by Analyzer 0 % (0-5); Neutrophil # 9.72 X10^3/uL (2.7-7.7); Neutrophil % 85.2 % (47-70); Platelet Count 487 K/mm3 (150-450); RBC Distribution Width CV 13.8 % (11.6-14.6); RBC Distribution Width SD 46.3 fl (35.1-43.9); White Blood Count 11.4 K/mm3 (4.4-11.0)
[2024-09-15 05:14] LABS: Allen Test Positive; Base Excess 3 mmol/L (-2 to +2); Bicarbonate 26.8 mmol/L (22-26); Blood Gas Specimen Type ART; Comment Max PS 20/Minn PS 10; Mode Not entered; O2 Delivery Device AVAPS; PEEP 8; PO2 92 mmHG (75-100); RR 16; SITE R Radial; SO2 98 % (95-99); Total Carbon Dioxide 28 mmol/L; pCO2 38.5 mmHg (35-45); pH 7.45 (7.35-7.45)
[2024-09-15 05:26] LABS: Anion Gap 15 (5-15); BUN 43 mg/dL (4-19); BUN/Creat Ratio 23.9 RATIO (10-20); Calcium,Total 8.9 mg/dL (7.6-11.0); Carbon Dioxide 23.1 mmol/L (21.0-32.0); Chloride 106 mmol/L (98-108); Creatinine, Serum 1.81 mg/dL (0.70-1.20); EST Glomerular Filtration Rate 38 (>60); Estimated Creatinine Clearance 28.62 ml/min (50-250); Glucose 105 mg/dL (70-99); Potassium 3.4 mmol/L (3.3-5.1); Sodium Level 144 mmol/L (133-145)
--- NOTE | 2024-09-15 05:55 | PCM.PN.INT ---
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 Continue AVAPS therapy with breaks as tolerated. Wean FiO2 to maintain saturations at or above 90%. 2. In light of his volume status, will attempt gentle diuresis today. 3. Precedex for patient comfort. 4. Continue bronchodilators. 5. Continue Eliquis. 6. Mobilize patient as tolerated. IMPRESSIONS: 1. Acute on chronic combined respiratory failure Unclear precipitating etiology in the emergency department. 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 The patient was ultimately intubated in the emergency department due to hypercarbic encephalopathy. With supportive care, the patient was able to be extubated, but has been largely maintained on AVAPS therapy since his extubation. The patient is overall net volume positive for the hospitalization. His ABG did not demonstrate any concerning findings. His chest x-ray is largely unchanged from previous. Will attempt gentle diuresis today, as tolerated by hemodynamics and renal function. 2. Metabolic encephalopathy Resolved. Likely secondary to acute CO2 retention noted in the emergency department, requiring invasive mechanical ventilatory support. CT head was unremarkable. 3. Acute left femoral neck fracture The patient is status post surgical repair on September 09, 2024. Continue current supportive measures and pain control. 4. History of syncope secondary to atrial fibrillation with RVR/hypertension/BPH/sleep apnea Complicates care, management, recovery and prognosis. Continue supportive measures as noted above. This note was generated with [employer] dictation software. It may contain incorrect words, spelling, and punctuation that were not noted in checking the note before signing. Subjective Subjective The patient was seen and examined at the bedside this morning. Events from the last 24 hours have been reviewed. The patient is currently afebrile, hemodynamically stable and maintaining appropriate oxygen saturations on AVAPS with an FiO2 of 30%. White blood cell count this morning was noted to be 11,000 with a hemoglobin of 9.8 g/dL. Arterial blood gas was notable for a pH of 7.45 with a pCO2 of 38 and pO2 of 92. Chemistry profile was notable for a creatinine of 1.8, improved from yesterday. The patient is currently documented to be overall net +12.6 L for the hospitalization. Nursing staff reported concerns that the patient becomes tachypneic with increased work of breathing when removed from PAP therapy. Repeat chest x-ray from this morning demonstrated no significant interval change from previous. Objective Data Objective Data The patient's most recent lab work, culture data and imaging studies have all been personally reviewed. Surface echocardiogram from July 2024 demonstrated normal LV size and function with an ejection fraction of 55%. Sputum culture dated September 10 was positive for presumptive [place] albicans. Vital Signs: Vital Signs Temp Pulse Resp BP Pulse Ox O2 Del Method O2 Flow Rate 98.9 F 72 22 H 120/76 98 Bi-pap 4 09/15/24 05:00 09/15/24 05:00 09/15/24 05:00 09/15/24 05:00 09/15/24 05:00 09/15/24 05:00 09/14/24 18:15 FiO2 30 09/15/24 05:00 Oxygen Flow Rate (L/min) 4 Oxygen Delivery Method Bi-pap Weight: 153 lb 7.068 oz Body Mass Index (BMI) 26.2 Intake & Output: Intake and Output for Last 24 Hours 09/13/24 09/14/24 09/15/24 23:59 23:59 23:59 Intake Total 2984.84 / 3000.04 2963.62 / 2963.62 57.48 / 57.48 Output Total 2425 / 2425 735 / 885 400 / 400 Balance 559.84 / 575.04 2228.62 / 2078.62 -342.52 / -342.52 Lab / Micro Data Attestation: I reviewed the patient's lab results. 09/15/24 04:45 09/15/24 04:45 Labs: Laboratory Results - last 24 hr 09/14/24 08:15: Urine Color Yellow, Urine Clarity Sl. Cloudy, Urine pH 6.0, Ur Specific [place] 1.020, Urine Protein 100 H, Urine Glucose (UA) Normal, Urine Ketones Negative, Urine Occult Blood 250 H, Urine Nitrite Negative, Urine Bilirubin Negative, Urine Urobilinogen Normal, Ur Leukocyte Esterase 100 H, Urine RBC 10-25 SEEN, Urine WBC 5-10 SEEN, Ur Squamous Epith Cells 0 SEEN, Urine Bacteria 1+, Urine Mucus 0 SEEN 09/14/24 08:50: MRSA (PCR) Negative 09/14/24 12:34: POC Glucose 122 H 09/14/24 18:46: POC Glucose 92 09/15/24 04:45: WBC 11.4 H, RBC 3.20 L, Hgb 9.8 L, Hct 29.2 L, MCV 91.3, MCH 30.6, MCHC 33.6, RDW Std Deviation 46.3 H, RDW Coeff of Larry 13.8, Plt Count 487 H, MPV 9.2, Immature Gran % (Auto) 1.400 H, Neut % (Auto) 85.2 H, Lymph % (Auto) 5.4 L, [place] % (Auto) 7.1, Eos % (Auto) 0.1, Baso % (Auto) 0.8, Absolute Neuts (auto) 9.7 H, Absolute Lymphs (auto) 0.61 L, Nucleated RBC % 0, Sodium 144, Potassium 3.4, Chloride 106, Carbon Dioxide 23.1, Anion Gap 15, BUN 43 H, Creatinine 1.81 H, Estim Creat Clear Calc 28.62 L, Est GFR (MDRD) Non-Af 38 L, BUN/Creatinine Ratio 23.9 H, Glucose 105 H, Calcium 8.9 Micro: Microbiology 09/14/24 08:40 Urine Catheter - [place] Legionella Antigen - Final 09/14/24 08:40 Urine Catheter - [place] Streptococcus pneumoniae Antigen (M - Final 09/14/24 08:28 Mucosa - Nose Coronavirus COVID-19 PCR - Final 09/14/24 08:28 Mucosa - Nose Influenza & RSV (PCR) - Final 09/10/24 02:18 Blood Culture (Wb) - Left Forearm Blood Culture - Preliminary No growth in 48 hours. 09/10/24 02:20 Urine Catheter - [place]rix Urine Culture - Final Culture exhibits no growth. 09/10/24 02:49 Sputum, Expectorated/Coughed Gram Stain - Final 09/10/24 02:49 Sputum, Expectorated/Coughed Respiratory Culture - Final Presumptive C albicans 09/05/24 02:46 Blood Culture (Wb) - Anticubital Left Blood Culture - Final No growth in 5 days. 09/05/24 03:00 Blood Culture (Wb) - Left Hand Blood Culture - Final No growth in 5 days. 09/05/24 04:30 Sputum, Induced/Luk[place] Gram Stain - Final 09/05/24 04:30 Sputum, Induced/Lukens Respiratory Culture - Final Mixed normal respiratory rogelio. No Streptococcus pneumoniae, beta-hemolytic Streptococcus or Staphylococcus aureus isolated. 09/05/24 01:00 Urine, Clean Catch Urine Culture - Final Staphylococcus epidermidis ABG Data ABG results: ABG 09/14/24 09/14/24 09/15/24 10:57 21:47 05:10 Specimen Type ART ART ART Sample Site R Radial R Radial R Radial pH 7.29 L 7.40 7.45 Bicarbonate Actual 28.9 H 28.3 H 26.8 H Total CO2 31 30 28 Base Excess 2 4 H 3 H O2 Saturation 94 L 97 98 O2 % 30.0 30.0 ABG pCO2 60.5 H 45.5 H 38.5 ABG pO2 79 88 92 Stephane Test Positive Positive Positive Respiration Rate 16 16 O2 Delivery Device BiPAP AVAPS AVAPS Vent Mode Not entered Not entered Not entered Tidal Volume 450.0 450.0 POC PEEP 8 8 Clinical Comments Min PS 20, Max PS 10 Max PS 20/[place] PS 10 Radiography Diagnostic Testing: Radiology Impression Chest X-Ray 09/14/24 07:45 IMPRESSION: Endotracheal tube tip 4.6 cm above the gail. Otherwise stable exam. Reading Location: [facility] Physical Exam Const alert Constitutional Narrative: The patient, at the present time, appears quite comfortable on AVAPS therapy. General Appearance: cooperative HEENT normocephalic and head/scalp atraumatic Eyes PERRL, EOMs intact bilaterally and conjunctivae normal Neck supple General: trachea midline Chest inspection of chest normal Resp no use of accessory muscles Effort and Inspection: tachypneic Auscultation: diminished lung sounds Cardio regular rate and regular rhythm GI normal to inspection, nondistended, normoactive bowel sounds Extremity no clubbing, cyanosis or edema Skin no rashes or lesions noted Neuro CN's II-XII intact bilaterally, moves all extremities and no focal motor deficits Psych Mood & Affect: flat affect Charges/Coding Visit Charges Inpatient E&M: 58170 Subs Hosp L3
[2024-09-15] MEDS: TITRATION PARAMETER CHANGE 1 EACH IV (06:11)
--- NOTE | 2024-09-15 06:25 | RAD_ITS ---
PROCEDURE: CHEST 1 VIEW (PORTABLE) 09/15/2024 REASON FOR EXAM: RESPIRATORY EVALUATION TECHNIQUE: Frontal view of the chest. COMPARISON: 09/14/2024 FINDINGS: The endotracheal and nasogastric tubes are no longer identified. Right PICC again seen with tip in the area of the superior cavoatrial junction. Scoliosis with deformity of the chest. No significant interval change in appearance of the lungs. Cardiac silhouette again noted to be enlarged. Atherosclerotic change at the aortic arch. RAD/Chest 1 View (Portable) IMPRESSION: The endotracheal and nasogastric tubes are no longer identified. Right PICC again seen with tip in the area of the superior cavoatrial junction. Scoliosis with deformity of the chest. No significant interval change in appear ance of the lungs. Cardiac silhouette again noted to be enlarged. Reading Location: [id number]
[2024-09-15] MEDS: 0.9% Saline Lock 10 ML Syringe IV (07:03)
[2024-09-15] MEDS: Furosemide 40 MG/4 ML Vial IV ×2 (07:04→17:30)
[2024-09-15] MEDS: dexMEDEtomidine 400 MCG in 0.9% Normal Saline (100mL Bag) 96 ML 8.7 MCG CONT INF (07:44)
--- NOTE | 2024-09-15 07:45 | PCM.PN.HOSP ---
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 (09/05/24) Subjective Subjective Patient was weaned off the vent the day prior subsequently placed on AVAPS and still remains on that attempt to wean patient off AVAPS so far unsuccessful Objective Data Objective Data Vital Signs: Vital Signs Temp Pulse Resp BP Pulse Ox O2 Del Method O2 Flow Rate 98.8 F 62 24 H 102/58 L 97 Bi-pap 4 09/15/24 07:00 09/15/24 07:00 09/15/24 07:00 09/15/24 07:00 09/15/24 07:00 09/15/24 07:00 09/14/24 18:15 FiO2 30 09/15/24 07:00 Oxygen Flow Rate (L/min) 4 Oxygen Delivery Method Bi-pap Weight: 69.6 kg Body Mass Index (BMI) 26.2 Intake & Output: Intake and Output for Last 24 Hours 09/13/24 09/14/24 09/15/24 23:59 23:59 23:59 Intake Total 2984.84 / 3000.04 2963.62 / 2963.62 77.32 / 77.32 Output Total 2425 / 2425 735 / 885 400 / 400 Balance 559.84 / 575.04 2228.62 / 2078.62 -322.68 / -322.68 Lab / Micro Data 09/15/24 04:45 09/15/24 04:45 Labs: Laboratory Results - last 24 hr 09/14/24 08:15: Urine Color Yellow, Urine Clarity Sl. Cloudy, Urine pH 6.0, Ur Specific [place] 1.020, Urine Protein 100 H, Urine Glucose (UA) Normal, Urine Ketones Negative, Urine Occult Blood 250 H, Urine Nitrite Negative, Urine Bilirubin Negative, Urine Urobilinogen Normal, Ur Leukocyte Esterase 100 H, Urine RBC 10-25 SEEN, Urine WBC 5-10 SEEN, Ur Squamous Epith Cells 0 SEEN, Urine Bacteria 1+, Urine Mucus 0 SEEN 09/14/24 08:50: MRSA (PCR) Negative 09/14/24 12:34: POC Glucose 122 H 09/14/24 18:46: POC Glucose 92 09/15/24 04:45: WBC 11.4 H, RBC 3.20 L, Hgb 9.8 L, Hct 29.2 L, MCV 91.3, MCH 30.6, MCHC 33.6, RDW Std Deviation 46.3 H, RDW Coeff of Larry 13.8, Plt Count 487 H, MPV 9.2, Immature Gran % (Auto) 1.400 H, Neut % (Auto) 85.2 H, Lymph % (Auto) 5.4 L, [place] % (Auto) 7.1, Eos % (Auto) 0.1, Baso % (Auto) 0.8, Absolute Neuts (auto) 9.7 H, Absolute Lymphs (auto) 0.61 L, Nucleated RBC % 0, Sodium 144, Potassium 3.4, Chloride 106, Carbon Dioxide 23.1, Anion Gap 15, BUN 43 H, Creatinine 1.81 H, Estim Creat Clear Calc 28.62 L, Est GFR (MDRD) Non-Af 38 L, BUN/Creatinine Ratio 23.9 H, Glucose 105 H, Calcium 8.9 Micro: Microbiology 09/14/24 08:40 Urine Catheter - Hendrix Legionella Antigen - Final 09/14/24 08:40 Urine Catheter - Hendrix Streptococcus pneumoniae Antigen (M - Final 09/14/24 08:28 Mucosa - Nose Coronavirus COVID-19 PCR - Final 09/14/24 08:28 Mucosa - Nose Influenza & RSV (PCR) - Final 09/10/24 02:18 Blood Culture (Wb) - Left Forearm Blood Culture - Preliminary No growth in 48 hours. 09/10/24 02:20 Urine Catheter - Hendrix Urine Culture - Final Culture exhibits no growth. 09/10/24 02:49 Sputum, Expectorated/Coughed Gram Stain - Final 09/10/24 02:49 Sputum, Expectorated/Coughed Respiratory Culture - Final Presumptive C albicans 09/05/24 02:46 Blood Culture (Wb) - Anticubital Left Blood Culture - Final No growth in 5 days. 09/05/24 03:00 Blood Culture (Wb) - Left Hand Blood Culture - Final No growth in 5 days. 09/05/24 04:30 Sputum, Induced/Lukens Gram Stain - Final 09/05/24 04:30 Sputum, Induced/Lukens Respiratory Culture - Final Mixed normal respiratory rogelio. No Streptococcus pneumoniae, beta-hemolytic Streptococcus or Staphylococcus aureus isolated. 09/05/24 01:00 Urine, Clean Catch Urine Culture - Final Staphylococcus epidermidis ABG Data ABG results: ABG 09/14/24 09/14/24 09/15/24 10:57 21:47 05:10 Specimen Type ART ART ART Sample Site R Radial R Radial R Radial pH 7.29 L 7.40 7.45 Bicarbonate Actual 28.9 H 28.3 H 26.8 H Total CO2 31 30 28 Base Excess 2 4 H 3 H O2 Saturation 94 L 97 98 O2 % 30.0 30.0 ABG pCO2 60.5 H 45.5 H 38.5 ABG pO2 79 88 92 Stephane Test Positive Positive Positive Respiration Rate 16 16 O2 Delivery Device BiPAP AVAPS AVAPS Vent Mode Not entered Not entered Not entered Tidal Volume 450.0 450.0 POC PEEP 8 8 Clinical Comments Min PS 20, Max PS 10 Max PS 20/[place] PS 10 Radiography Diagnostic Testing: Radiology Impression Chest X-Ray 09/14/24 07:45 IMPRESSION: Endotracheal tube tip 4.6 cm above the gail. Otherwise stable exam. Reading Location: [facility] Chest X-Ray 09/15/24 06:25 IMPRESSION: The endotracheal and nasogastric tubes are no longer identified. Right PICC again seen with tip in the area of the superior cavoatrial junction. Scoliosis with deformity of the chest. No significant interval change in appearance of the lungs. Cardiac silhouette again noted to be enlarged. Reading Location: [facility] Physical Exam Narrative GENERAL: Patient on AVAPS HEENT: ET tube in place EYES; Anicteric, Normal Conjunctiva NECK; supple, normal thyroid, RESPIRATORY: Diminished to auscultation CARDIOVASCULAR: Regular S1 S2, GI: soft, normoactive bowel sounds, : No Renal angle tenderness; EXTREMITIES: Edema involving both upper and lower extremity, MUSCULOSKELETAL: no muscle wasting NEURO: No lateralizing signs SKIN: No Rash PSYCH; flat affect Assessment & Plan Assessment/Plan (1) Closed fracture of neck of left femur: QUALIFIERS: Encounter type: initial encounter Qualified Code(s): S72.002A - Fracture of unspecified part of neck of left femur, initial encounter for closed fracture PLAN: Plan Patient is a 79-year-old gentleman with 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 Intubated in the ED due to metabolic encephalopathy secondary to hypercapnia. Patient subsequently underwent left femoral neck fracture repair on 09/09/2024 1. Acute on chronic hypoxic and hypercapnic respiratory failure ? Secondary to restrictive lung disease. Patient presented with altered mental status and elevated pCO2 patient was intubated and subsequently admitted to the intensive care unit. 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 09/14/2024; patient seen remains on the vent patient continues to spike fevers subsequently ordered urine culture and urinalysis with reflex culture, blood culture, checks x-ray, COVID assay as well as viral respiratory panel ? 09/15/2024;Patient was weaned off the vent the day prior subsequently placed on AVAPS and still remains on that attempt to wean patient off AVAPS so far unsuccessful 2. Acute metabolic encephalopathy ? Secondary to above 09/14/2024; a complete assessment will be performed once patient is off the vent ? 09/15/2024; patient was essentially weaned off the vent the day prior his level of sensorium appears to be back to baseline 3. Acute mechanical fall with left femoral neck fracture ? Patient underwent surgical repair on 09/09/2024 4. Acute kidney injury ? Patient had been empirically started on vancomycin and Zosyn do suspect drug-induced nephritis. Offending medications discontinued. Monitoring response to therapy with daily BMP.With patient kidney function continues to worsen consult was placed to nephrology ? 09/14/2024; ordered kidney ultrasound to rule out obstructive uropathy. Patient creatinine 1.9 this a.m. repeat labs ordered in a.m. ? 09/15/2024; creatinine down to 1.8 5. Anemia ? Secondary to chronic disorder monitoring H&H and transfuse if patient becomes symptomatic or hemoglobin falls below 7 6. Acute on chronic congestive heart failure with preserved ejection fraction ? Echo obtained on 07/22/2024 demonstrated EF of 55% with PASP of 5035 mmHg. Patient did receive Lasix 7. Paroxysmal A-fib ? Patient is on on sotalol as well as systemic anticoagulation with apixaban.. Home medications continued 8. 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 Patient has significant complications including restrictive lung disease 9. Depression ? Patient is on venlafaxine, plan is to resume once off the event 10. Central sleep apnea ? Patient uses BiPAP at night will resume when patient is extubated 11 Chronic hypoxic and hypercapnic respiratory failure ? Patient is on continuous home oxygen during the day 12. BPH with lower urinary obstructive symptoms - Patient treated with tamsulosin, continued 13. Hypokalemia - Potassium this a.m. is 3.4 corrected per protocol, repeat labs ordered for monitoring unit. Also added magnesium level for a.m. ? 09/14/2024; patient potassium remains low additional replacement given repeat labs ordered for a.m. 14. Essential hypertension ? Patient blood pressure control remains labile we will continue with monitoring and adjust medications if warranted 15. DVT prophylaxis ? On apixaban Charges/Coding Visit Charges Inpatient E&M: 93654 Subs Hosp L3
[2024-09-15] MEDS: Pantoprazole Sodium 40 MG in 0.9% Normal Saline (100mL MB+) 100 ML 330 MG IV (10:57)
[2024-09-15] MEDS: CHLORHEXIDINE GLUC 2% CLOTH 1 EACH TOWELETTE TOPICAL (11:08)
[2024-09-15 12:43] LABS: Bedside Glucose 99 mg/dL (74-106)
[2024-09-15] MEDS: dexMEDEtomidine 400 MCG in 0.9% Normal Saline (100mL Bag) 96 ML 17.4 MCG CONT INF (15:57)
[2024-09-15] MEDS: Menthol/Lanolin/Calamine/Znox 113 GM Tube 1 APPLIC TOPICAL ×2 (15:58→21:56)
[2024-09-15 16:47] LABS: Allen Test Positive; Base Excess 4 mmol/L (-2 to +2); Bicarbonate 28.4 mmol/L (22-26); Blood Gas Specimen Type ART; Comment avaps 16; Mode Not entered; O2 Delivery Device BiPAP; PEEP 8; PO2 93 mmHG (75-100); SITE L Brach; SO2 98 % (95-99); Total Carbon Dioxide 30 mmol/L; pCO2 41.6 mmHg (35-45); pH 7.44 (7.35-7.45)
[2024-09-15 17:53] LABS: Bedside Glucose 104 mg/dL (74-106)
[2024-09-15] MEDS: dexMEDEtomidine 400 MCG in 0.9% Normal Saline (100mL Bag) 96 ML 19.1 MCG CONT INF (20:29)
[2024-09-15] MEDS: 0.9% Normal Saline (250mL Bag) 250 ML 15 ML IV (20:51)
[2024-09-16] VITALS (28 sets, daily range): BP systolic 92–179; BP diastolic 56–99; PULSE 50–92; RESP 15–38; TEMP 36.3–37.1; O2SAT 94–100; BMI 25.6
[2024-09-16] MEDS: dexMEDEtomidine 400 MCG in 0.9% Normal Saline (100mL Bag) 96 ML 26.1 MCG CONT INF (00:29)
[2024-09-16 01:06] LABS: Bedside Glucose 123 mg/dL (74-106)
[2024-09-16] MEDS: Ipratropium/Albuterol Sulfate 3 ML AMPUL.NEB INHALATION ×4 (01:26→20:01)
[2024-09-16] MEDS: Acetylcysteine 800 MG/4 ML VIAL.NEB. INHALATION ×2 (01:27→07:00)
[2024-09-16 03:54] LABS: Absolute Lymphocyte Count 0.69 X10^3/uL (0.83-4.51); Absolute Neutrophil Count 10.4 X10^3/uL (2.0-7.7); Basophil# 0.08 X10^3/uL; Basophil% 0.7 % (0-1); Eosinophil# 0.02 X10^3/uL; Eosinophils% 0.2 % (0-5); Hematocrit 28.1 % (40-54); Hemoglobin 9.2 g/dL (13.0-16.5); Lymphocyte # 0.69 X10^3/ul (0.83-4.51); Lymphocyte % 5.7 % (19-41); Mean Corp Hgb Conc 32.7 g/dL (32-36); Mean Corpuscular Hgb 30.5 pg (27.0-32.0); Mean Platelet Vol. 8.9 fl (6.2-12.0); Monocyte# 0.82 X10^3/uL; Monocyte% 6.7 % (0-10); NRBC Flagged by Analyzer 0 % (0-5); Neutrophil # 10.39 X10^3/uL (2.7-7.7); Neutrophil % 85.3 % (47-70); Platelet Count 538 K/mm3 (150-450); RBC Distribution Width CV 14.1 % (11.6-14.6); RBC Distribution Width SD 47.2 fl (35.1-43.9); Red Blood Count 3.02 M/mm3 (4.6-6.2); White Blood Count 12.2 K/mm3 (4.4-11.0)
[2024-09-16 04:44] LABS: Anion Gap 18 (5-15); BUN 52 mg/dL (4-19); BUN/Creat Ratio 28.8 RATIO (10-20); Calcium,Total 9.4 mg/dL (7.6-11.0); Carbon Dioxide 25.7 mmol/L (21.0-32.0); Chloride 102 mmol/L (98-108); Creatinine, Serum 1.81 mg/dL (0.70-1.20); EST Glomerular Filtration Rate 38 (>60); Estimated Creatinine Clearance 28.62 ml/min (50-250); Glucose 130 mg/dL (70-99); Potassium 3.6 mmol/L (3.3-5.1); Sodium Level 145 mmol/L (133-145)
[2024-09-16] MEDS: Menthol/Lanolin/Calamine/Znox 113 GM Tube 1 APPLIC TOPICAL ×3 (05:31→21:02)
[2024-09-16] MEDS: 0.9% Saline Lock 10 ML Syringe IV ×4 (05:31→18:39)
[2024-09-16 05:51] LABS: Bedside Glucose 116 mg/dL (74-106)
[2024-09-16] MEDS: hydrALAZINE 20 MG/ML Vial 10 MG IV (06:40)
--- NOTE | 2024-09-16 07:19 | PCM.PN.HOSP ---
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 Currently remains on 2 L flow per minute patient however remains delirious Objective Data Objective Data Vital Signs: Vital Signs Temp Pulse Resp BP Pulse Ox O2 Del Method O2 Flow Rate 97.4 F L 91 19 H 160/66 H 100 Nasal Cannula 2 09/16/24 04:00 09/16/24 07:00 09/16/24 07:00 09/16/24 07:00 09/16/24 07:00 09/16/24 07:00 09/16/24 07:00 FiO2 30 09/16/24 03:00 Oxygen Flow Rate (L/min) 2 Oxygen Delivery Method Nasal Cannula Weight: 67.7 kg Body Mass Index (BMI) 25.6 Intake & Output: Intake and Output for Last 24 Hours 09/14/24 09/15/24 09/16/24 23:59 23:59 23:59 Intake Total 2963.62 / 2963.62 445.83 / 452.36 104.98 / 104.98 Output Total 735 / 885 3600 / 3600 900 / 900 Balance 2228.62 / 2078.62 -3154.17 / -3147.64 -795.02 / -795.02 Lab / Micro Data 09/16/24 03:40 09/16/24 03:40 Labs: Laboratory Results - last 24 hr 09/15/24 12:24: POC Glucose 99 09/15/24 17:36: POC Glucose 104 09/16/24 00:47: POC Glucose 123 H 09/16/24 03:40: WBC 12.2 H, RBC 3.02 L, Hgb 9.2 L, Hct 28.1 L, MCV 93.0, MCH 30.5, MCHC 32.7, RDW Std Deviation 47.2 H, RDW Coeff of Larry 14.1, Plt Count 538 H, MPV 8.9, Immature Gran % (Auto) 1.400 H, Neut % (Auto) 85.3 H, Lymph % (Auto) 5.7 L, [place] % (Auto) 6.7, Eos % (Auto) 0.2, Baso % (Auto) 0.7, Absolute Neuts (auto) 10.4 H, Absolute Lymphs (auto) 0.69 L, Nucleated RBC % 0, Sodium 145, Potassium 3.6, Chloride 102, Carbon Dioxide 25.7, Anion Gap 18 H, BUN 52 H, Creatinine 1.81 H, Estim Creat Clear Calc 28.62 L, Est GFR (MDRD) Non-Af 38 L, BUN/Creatinine Ratio 28.8 H, Glucose 130 H, Calcium 9.4 09/16/24 05:27: POC Glucose 116 H Micro: Microbiology 09/14/24 08:28 Sputum, Tracheal Aspirate Gram Stain - Final 09/14/24 08:28 Sputum, Tracheal Aspirate Respiratory Culture - Preliminary Presumptive C albicans 09/10/24 02:18 Blood Culture (Wb) - Left Forearm Blood Culture - Final No growth in 5 days. 09/14/24 08:40 Urine Catheter - Hendrix Legionella Antigen - Final 09/14/24 08:40 Urine Catheter - Hendrix Streptococcus pneumoniae Antigen (M - Final 09/14/24 08:28 Mucosa - Nose Coronavirus COVID-19 PCR - Final 09/14/24 08:28 Mucosa - Nose Influenza & RSV (PCR) - Final 09/10/24 02:20 Urine Catheter - Hendrix Urine Culture - Final Culture exhibits no growth. 09/10/24 02:49 Sputum, Expectorated/Coughed Gram Stain - Final 09/10/24 02:49 Sputum, Expectorated/Coughed Respiratory Culture - Final Presumptive C albicans 09/05/24 02:46 Blood Culture (Wb) - Anticubital Left Blood Culture - Final No growth in 5 days. 09/05/24 03:00 Blood Culture (Wb) - Left Hand Blood Culture - Final No growth in 5 days. 09/05/24 04:30 Sputum, Induced/Lukens Gram Stain - Final 09/05/24 04:30 Sputum, Induced/Lukens Respiratory Culture - Final Mixed normal respiratory rogelio. No Streptococcus pneumoniae, beta-hemolytic Streptococcus or Staphylococcus aureus isolated. 09/05/24 01:00 Urine, Clean Catch Urine Culture - Final Staphylococcus epidermidis ABG Data ABG results: ABG 09/15/24 16:43 Specimen Type ART Sample Site L Brach pH 7.44 Bicarbonate Actual 28.4 H Total CO2 30 Base Excess 4 H O2 Saturation 98 O2 % 30.0 ABG pCO2 41.6 ABG pO2 93 Stephane Test Positive O2 Delivery Device BiPAP Vent Mode Not entered Tidal Volume 450.0 POC PEEP 8 Clinical Comments avaps 16 Physical Exam Narrative GENERAL: On nasal cannula HEENT: ET tube in place EYES; Anicteric, Normal Conjunctiva NECK; supple, normal thyroid, RESPIRATORY: Diminished to auscultation CARDIOVASCULAR: Regular S1 S2, GI: soft, normoactive bowel sounds, : No Renal angle tenderness; EXTREMITIES: Edema involving both upper and lower extremity, MUSCULOSKELETAL: no muscle wasting NEURO: No lateralizing signs SKIN: No Rash PSYCH; flat affect Assessment & Plan Assessment/Plan (1) Closed fracture of neck of left femur: QUALIFIERS: Encounter type: initial encounter Qualified Code(s): S72.002A - Fracture of unspecified part of neck of left femur, initial encounter for closed fracture PLAN: Plan Patient is a 79-year-old gentleman with 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 Intubated in the ED due to metabolic encephalopathy secondary to hypercapnia. Patient subsequently underwent left femoral neck fracture repair on 09/09/2024 1. Acute on chronic hypoxic and hypercapnic respiratory failure ? Secondary to restrictive lung disease. Patient presented with altered mental status and elevated pCO2 patient was intubated and subsequently admitted to the intensive care unit. 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 09/14/2024; patient seen remains on the vent patient continues to spike fevers subsequently ordered urine culture and urinalysis with reflex culture, blood culture, checks x-ray, COVID assay as well as viral respiratory panel ? 09/15/2024;Patient was weaned off the vent the day prior subsequently placed on AVAPS and still remains on that attempt to wean patient off AVAPS so far unsuccessful ? 09/16/2024; patient has been weaned down to nasal cannula 2. Acute metabolic encephalopathy ? Secondary to above 09/14/2024; a complete assessment will be performed once patient is off the vent ? 09/15/2024; patient was essentially weaned off the vent the day prior his level of sensorium appears to be back to baseline ? 09/16/2024; nursing staff reports intermittent delirium 3. Acute mechanical fall with left femoral neck fracture ? Patient underwent surgical repair on 09/09/2024 4. Acute kidney injury ? Patient had been empirically started on vancomycin and Zosyn do suspect drug-induced nephritis. Offending medications discontinued. Monitoring response to therapy with daily BMP.With patient kidney function continues to worsen consult was placed to nephrology ? 09/14/2024; ordered kidney ultrasound to rule out obstructive uropathy. Patient creatinine 1.9 this a.m. repeat labs ordered in a.m. ? 09/15/2024; creatinine down to 1.8 ? 09/16/2024; no change in patient kidney function 5. Anemia ? Secondary to chronic disorder monitoring H&H and transfuse if patient becomes symptomatic or hemoglobin falls below 7 6. Acute on chronic congestive heart failure with preserved ejection fraction ? Echo obtained on 07/22/2024 demonstrated EF of 55% with PASP of 5035 mmHg. Patient did receive Lasix 7. Paroxysmal A-fib ? Patient is on on sotalol as well as systemic anticoagulation with apixaban.. Home medications continued 8. 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 Patient has significant complications including restrictive lung disease 9. Depression ? Patient is on venlafaxine, plan is to resume once off the event 10. Central sleep apnea ? Patient uses BiPAP at night will resume when patient is extubated 11 Chronic hypoxic and hypercapnic respiratory failure ? Patient is on continuous home oxygen during the day 12. BPH with lower urinary obstructive symptoms - Patient treated with tamsulosin, continued 13. Hypokalemia - Potassium this a.m. is 3.4 corrected per protocol, repeat labs ordered for monitoring unit. Also added magnesium level for a.m. ? 09/14/2024; patient potassium remains low additional replacement given repeat labs ordered for a.m. 14. Essential hypertension ? Patient blood pressure control remains labile we will continue with monitoring and adjust medications if warranted 15. DVT prophylaxis ? On apixaban Charges/Coding Visit Charges Inpatient E&M: 47766 Subs Hosp L2
--- NOTE | 2024-09-16 07:49 | CPS ---
Pt does not like the Mucomyst treatment and will not keep the treatment on
--- NOTE | 2024-09-16 08:47 | PCM.PN.INT ---
Assessment & Plan Assessment/Plan (1) Closed fracture of neck of left femur: QUALIFIERS: Encounter type: initial encounter Qualified Code(s): S72.002A - Fracture of unspecified part of neck of left femur, initial encounter for closed fracture (2) Current use of chcf anticoagulation: (3) UTI (urinary tract infection): (4) Acute on chronic respiratory failure with hypercapnia: PLAN: Plan RECOMMENDATIONS: 1. Continue AVAPS therapy with naps and nightly. 2. Continue to wean supplemental oxygen to maintain saturations at or above 90%. 3. Continue attempts at diuresis, as tolerated by hemodynamics and renal function. 4. Start scheduled BuSpar for anxiety. 5. Continue bronchodilators. 6. Continue Eliquis. 7. Mobilize patient as tolerated. IMPRESSIONS: 1. Acute on chronic combined respiratory failure Unclear precipitating etiology in the emergency department. 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 The patient was ultimately intubated in the emergency department due to hypercarbic encephalopathy. With supportive care, the patient was able to be extubated. Recommend continuing AVAPS therapy, per home regimen, with naps and nightly. Continue to wean supplemental oxygen to maintain saturations at or above 90%. Given that the patient remains overall net positive from a volume perspective, we will continue gentle diuresis, as tolerated by hemodynamics and renal function. 2. Metabolic encephalopathy Resolved. Likely secondary to acute CO2 retention noted in the emergency department, requiring invasive mechanical ventilatory support. CT head was unremarkable. 3. Acute left femoral neck fracture The patient is status post surgical repair on September 09, 2024. Continue current supportive measures and pain control. 4. History of syncope secondary to atrial fibrillation with RVR/hypertension/BPH/sleep apnea Complicates care, management, recovery and prognosis. Continue supportive measures as noted above. This note was generated with Mobile [employer] dictation software. It may contain incorrect words, spelling, and punctuation that were not noted in checking the note before signing. Subjective Subjective The patient was seen and examined at the bedside this morning. Events from the last 24 hours have been reviewed. The patient is currently afebrile, hemodynamically stable and maintaining appropriate oxygen saturations on 2 L/min via nasal cannula. The patient has been weaned off of Precedex completely. The patient reported to me this morning that he felt that he was experiencing delirium yesterday. He does report baseline anxiety. He is currently documented to be overall net +9 L for the hospitalization. White blood cell count is stable at 12,000 with a hemoglobin of 9.2 g/dL. Creatinine is stable at 1.81. Objective Data Objective Data The patient's most recent lab work, culture data and imaging studies have all been personally reviewed. Surface echocardiogram from July 2024 demonstrated normal LV size and function with an ejection fraction of 55%. Sputum culture dated September 10 was positive for presumptive [place] albicans. Vital Signs: Vital Signs Temp Pulse Resp BP Pulse Ox O2 Del Method O2 Flow Rate 97.4 F L 89 21 H 158/88 H 98 Nasal Cannula 2 09/16/24 04:00 09/16/24 08:00 09/16/24 08:00 09/16/24 08:00 09/16/24 08:37 09/16/24 08:37 09/16/24 08:37 FiO2 30 09/16/24 03:00 Oxygen Flow Rate (L/min) 2 Oxygen Delivery Method Nasal Cannula Weight: 149 lb 4.047 oz Body Mass Index (BMI) 25.6 Intake & Output: Intake and Output for Last 24 Hours 09/14/24 09/15/24 09/16/24 23:59 23:59 23:59 Intake Total 2963.62 / 2963.62 445.83 / 452.36 104.98 / 104.98 Output Total 735 / 885 3600 / 3600 900 / 900 Balance 2228.62 / 2078.62 -3154.17 / -3147.64 -795.02 / -795.02 Lab / Micro Data Attestation: I reviewed the patient's lab results. 09/16/24 03:40 09/16/24 03:40 Labs: Laboratory Results - last 24 hr 09/15/24 12:24: POC Glucose 99 09/15/24 17:36: POC Glucose 104 09/16/24 00:47: POC Glucose 123 H 09/16/24 03:40: WBC 12.2 H, RBC 3.02 L, Hgb 9.2 L, Hct 28.1 L, MCV 93.0, MCH 30.5, MCHC 32.7, RDW Std Deviation 47.2 H, RDW Coeff of Larry 14.1, Plt Count 538 H, MPV 8.9, Immature Gran % (Auto) 1.400 H, Neut % (Auto) 85.3 H, Lymph % (Auto) 5.7 L, [place] % (Auto) 6.7, Eos % (Auto) 0.2, Baso % (Auto) 0.7, Absolute Neuts (auto) 10.4 H, Absolute Lymphs (auto) 0.69 L, Nucleated RBC % 0, Sodium 145, Potassium 3.6, Chloride 102, Carbon Dioxide 25.7, Anion Gap 18 H, BUN 52 H, Creatinine 1.81 H, Estim Creat Clear Calc 28.62 L, Est GFR (MDRD) Non-Af 38 L, BUN/Creatinine Ratio 28.8 H, Glucose 130 H, Calcium 9.4 09/16/24 05:27: POC Glucose 116 H Micro: Microbiology 09/14/24 08:28 Sputum, Tracheal Aspirate Gram Stain - Final 09/14/24 08:28 Sputum, Tracheal Aspirate Respiratory Culture - Preliminary Presumptive C albicans 09/10/24 02:18 Blood Culture (Wb) - Left Forearm Blood Culture - Final No growth in 5 days. 09/14/24 08:40 Urine Catheter - Hendrix Legionella Antigen - Final 09/14/24 08:40 Urine Catheter - Hendrix Streptococcus pneumoniae Antigen (M - Final 09/14/24 08:28 Mucosa - Nose Coronavirus COVID-19 PCR - Final 09/14/24 08:28 Mucosa - Nose Influenza & RSV (PCR) - Final 09/10/24 02:20 Urine Catheter - Hendrix Urine Culture - Final Culture exhibits no growth. 09/10/24 02:49 Sputum, Expectorated/Coughed Gram Stain - Final 09/10/24 02:49 Sputum, Expectorated/Coughed Respiratory Culture - Final Presumptive C albicans 09/05/24 02:46 Blood Culture (Wb) - Anticubital Left Blood Culture - Final No growth in 5 days. 09/05/24 03:00 Blood Culture (Wb) - Left Hand Blood Culture - Final No growth in 5 days. 09/05/24 04:30 Sputum, Induced/Lukens Gram Stain - Final 09/05/24 04:30 Sputum, Induced/Lukens Respiratory Culture - Final Mixed normal respiratory rogelio. No Streptococcus pneumoniae, beta-hemolytic Streptococcus or Staphylococcus aureus isolated. 09/05/24 01:00 Urine, Clean Catch Urine Culture - Final Staphylococcus epidermidis ABG Data ABG results: ABG 09/15/24 16:43 Specimen Type ART Sample Site L Brach pH 7.44 Bicarbonate Actual 28.4 H Total CO2 30 Base Excess 4 H O2 Saturation 98 O2 % 30.0 ABG pCO2 41.6 ABG pO2 93 Stephane Test Positive O2 Delivery Device BiPAP Vent Mode Not entered Tidal Volume 450.0 POC PEEP 8 Clinical Comments avaps 16 Radiography Diagnostic Testing: Radiology Impression Chest X-Ray 09/14/24 07:45 IMPRESSION: Endotracheal tube tip 4.6 cm above the gail. Otherwise stable exam. Reading Location: [facility] Physical Exam Const alert Constitutional Narrative: Anxious in appearance. General Appearance: cooperative HEENT normocephalic and head/scalp atraumatic Eyes PERRL, EOMs intact bilaterally and conjunctivae normal Neck supple General: trachea midline Chest inspection of chest normal Resp normal respiratory effort and no use of accessory muscles Auscultation: diminished lung sounds Cardio regular rate and regular rhythm GI normal to inspection, nondistended, normoactive bowel sounds Extremity no clubbing, cyanosis or edema Skin no rashes or lesions noted Neuro CN's II-XII intact bilaterally, moves all extremities and no focal motor deficits Psych Mood & Affect: flat affect Charges/Coding Visit Charges Inpatient E&M: 30975 Subs Hosp L2
[2024-09-16] MEDS: Tamsulosin HCl 0.4 MG Capsule PO ×2 (10:14→21:02)
[2024-09-16] MEDS: Sotalol Hydrochloride 80 MG Tablet GT ×2 (10:14→21:02)
[2024-09-16] MEDS: APIXABAN 5 MG TABLET PO ×2 (10:14→21:02)
[2024-09-16] MEDS: Venlafaxine XR 75 MG Capsule PO (10:14)
[2024-09-16] MEDS: busPIRone 5 MG Tablet 10 MG PO ×2 (10:16→21:00)
[2024-09-16] MEDS: Furosemide 40 MG/4 ML Vial IV ×2 (10:17→18:12)
[2024-09-16] MEDS: CHLORHEXIDINE GLUC 2% CLOTH 1 EACH TOWELETTE TOPICAL (10:34)
--- NOTE | 2024-09-16 13:46 | PCM.CONS.R ---
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 Found to have left hip fracture. Patient underwent surgical repair on September 09. Nephrology consulted in view of elevated creatinine. Patient has normal baseline creatinine trends, creatinine was less than 1 on admission. Creatinine began to rise on September 11 at 1.67. Creatinine peaked 2.18 on September 13. Today creatinine 1.81. TERRENCE likely secondary to ATN. With volume expansion blood pressures improving, renal function has slightly improved, he is not requiring IV pressors at this time. Patient is nonoliguric, urine output today so far 1.7 L, patient has hadley therefore obstructive component contributing to TERRENCE unlikely. Potassium and acid-base acceptable. 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 Patient is edematous, per cumulative I&O he is net +8 L. To receive Lasix 40 mg IV twice today. Will monitor response, labs ordered for the morning. Further orders forthcoming as hospitalization evolves, thank you for allowing us to participate in the care of Mr. Joseph. 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 Found to have left femoral neck fracture. Patient underwent left hip hemiarthroplasty on September 09; hospitalization complicated by respiratory failure requiring ventilator support on admission, shock secondary to sedation and was on IV pressors. Nephrology consulted in view of elevated creatinine. Fortunately patient was able to be extubated, he is alert and oriented. His sister is at bedside. Patient does not follow with nephrology. Patient offers no complaints today. On admission creatinine was 0.45. Patient has normal baseline creatinine levels. [facility] Medical History 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 Wears glasses Cancer Depression Claustrophobia Anxiety Alcohol use Redness of skin Uses crutches Arthritis Bladder disease Back pain History of edema History of diverticulitis Post-polio syndrome Non-smoker BiPAP (biphasic positive airway pressure) dependence History of CHF (congestive heart failure) On home oxygen therapy History of pain when walking History of stress test History of echocardiogram Chronic respiratory failure with hypoxia and hypercapnia On mechanically assisted ventilation Post-poliomyelitis syndrome Acute on chronic respiratory failure with hypoxia and hypercapnia Hypertension Lumbar radicular pain Degenerative scoliosis Scoliosis Segmental dysfunction of thoracic region Home Medications ?Medication ?Instructions ?Recorded ?Last Taken ?Type tamsulosin 0.4 mg capsule 0.4 mg PO BID prostate 02/03/20 08/09/24 History venlafaxine 75 mg capsule,extended 75 mg PO DAILY MOOD 05/31/22 08/09/24 History release 24 hr cyanocobalamin (vitamin B-12) 500 500 mcg PO DAILY supplement 07/10/24 07/28/24 History mcg tablet losartan 50 mg tablet 50 mg PO QHS BP #0 tabs 07/28/24 Unknown Rx acetaminophen 500 mg tablet 1,000 mg (2 x 500 mg) PO QHS #0 08/18/24 Unknown Rx tabs fluticasone propionate 50 1 spray NASAL BID 30 days #16 grams 08/18/24 Unknown Rx mcg/actuation nasal spray,suspension omeprazole 40 mg capsule,delayed 40 mg PO QDAY 30 days #30 caps 08/21/24 Unknown Rx release polyethylene glycol 3350 17 8.5 g PO .COMPLEX PRN constipation 09/02/24 Unknown History gram/dose oral powder (Miralax) apixaban 5 mg tablet (Eliquis) 5 mg PO BID #180 tabs 09/04/24 Unknown Rx sotalol 80 mg tablet 80 mg PO BID #180 tabs 09/04/24 Unknown Rx Allergy/AdvReac Type Severity Reaction Status Date / Time metronidazole (From Flagyl) AdvReac Nausea/Vom/ Verified 09/04/24 23:42 Diarrhea Family History Father Myocardial infarction Heart disease Mother Shy-Drager syndrome Other CVA (cerebral vascular accident) Surgical History History of selective injection of anesthetic agent around lumbar nerve root Hx of lithotripsy History of cardiac catheterization Hx of cystoscopy H/O adenoidectomy History of uvulectomy Hip fracture, right History of open reduction and internal fixation (ORIF) procedure Right tibial fracture H/O spinal fusion Social History household members: spouse housing: house Smoking Status: Never smoker substance use type: does not use ROS ROS Narrative As in HPI Physical Exam Narrative Alert and oriented, no apparent distress. S1, S2, RRR Diminished breath sounds, on O2 per nasal cannula Abdomen soft, rounded Edema to bilateral lower legs and feet Indwelling Hadley with clear yellow urine in bag Lab / Micro Data 09/16/24 03:40 09/16/24 03:40 Labs: Laboratory Results - last 24 hr 09/15/24 17:36: POC Glucose 104 09/16/24 00:47: POC Glucose 123 H 09/16/24 03:40: WBC 12.2 H, RBC 3.02 L, Hgb 9.2 L, Hct 28.1 L, MCV 93.0, MCH 30.5, MCHC 32.7, RDW Std Deviation 47.2 H, RDW Coeff of Larry 14.1, Plt Count 538 H, MPV 8.9, Immature Gran % (Auto) 1.400 H, Neut % (Auto) 85.3 H, Lymph % (Auto) 5.7 L, [place] % (Auto) 6.7, Eos % (Auto) 0.2, Baso % (Auto) 0.7, Absolute Neuts (auto) 10.4 H, Absolute Lymphs (auto) 0.69 L, Nucleated RBC % 0, Sodium 145, Potassium 3.6, Chloride 102, Carbon Dioxide 25.7, Anion Gap 18 H, BUN 52 H, Creatinine 1.81 H, Estim Creat Clear Calc 28.62 L, Est GFR (MDRD) Non-Af 38 L, BUN/Creatinine Ratio 28.8 H, Glucose 130 H, Calcium 9.4 09/16/24 05:27: POC Glucose 116 H Micro: Microbiology 09/14/24 08:15 Blood Culture (Wb) - No Site/Description Given Blood Culture - Preliminary No growth in 48 hours. 09/14/24 08:15 Blood Culture (Wb) - Pic Blood Culture - Preliminary No growth in 48 hours. 09/14/24 08:15 Urine Catheter - Hadley Urine Culture - Final Culture exhibits no growth. 09/14/24 08:28 Sputum, Tracheal Aspirate Gram Stain - Final 09/14/24 08:28 Sputum, Tracheal Aspirate Respiratory Culture - Final Presumptive C albicans ABG Data ABG results: ABG 09/15/24 16:43 Specimen Type ART Sample Site L Brach pH 7.44 Bicarbonate Actual 28.4 H Total CO2 30 Base Excess 4 H O2 Saturation 98 O2 % 30.0 ABG pCO2 41.6 ABG pO2 93 Stephane Test Positive O2 Delivery Device BiPAP Vent Mode Not entered Tidal Volume 450.0 POC PEEP 8 Clinical Comments avaps 16
--- NOTE | 2024-09-16 16:17 | CPS ---
Pt was on Bipap when RT walked into room.
[2024-09-16 17:25] LABS: Bedside Glucose 129 mg/dL (74-106)
[2024-09-16] MEDS: proCHLORPERazine 10 MG/2 ML Vial IV (18:39)
[2024-09-17] VITALS (40 sets, daily range): BP systolic 84–146; BP diastolic 42–70; PULSE 41–82; RESP 12–37; TEMP 36.2–37; O2SAT 94–100; BMI 24.0
[2024-09-17] MEDS: Ipratropium/Albuterol Sulfate 3 ML AMPUL.NEB INHALATION ×4 (00:28→19:24)
[2024-09-17 01:07] LABS: Bedside Glucose 128 mg/dL (74-106)
[2024-09-17 03:27] LABS: Absolute Lymphocyte Count 0.62 X10^3/uL (0.83-4.51); Absolute Neutrophil Count 12.4 X10^3/uL (2.0-7.7); Basophil% 0.7 % (0-1); Hematocrit 30.4 % (40-54); Hemoglobin 9.8 g/dL (13.0-16.5); Lymphocyte # 0.62 X10^3/ul (0.83-4.51); Lymphocyte % 4.3 % (19-41); Mean Corp Hgb Conc 32.2 g/dL (32-36); Mean Corpuscular Hgb 30.6 pg (27.0-32.0); Mean Platelet Vol. 8.6 fl (6.2-12.0); Monocyte# 1.03 X10^3/uL; Monocyte% 7.2 % (0-10); NRBC Flagged by Analyzer 0 % (0-5); Neutrophil # 12.41 X10^3/uL (2.7-7.7); Neutrophil % 86.5 % (47-70); Platelet Count 621 K/mm3 (150-450); RBC Distribution Width SD 49.4 fl (35.1-43.9); White Blood Count 14.3 K/mm3 (4.4-11.0)
[2024-09-17 04:02] LABS: Anion Gap 15 (5-15); BUN 58 mg/dL (4-19); Calcium,Total 9.2 mg/dL (7.6-11.0); Chloride 101 mmol/L (98-108); Creatinine, Serum 1.81 mg/dL (0.70-1.20); EST Glomerular Filtration Rate 38 (>60); Estimated Creatinine Clearance 28.62 ml/min (50-250); Glucose 133 mg/dL (70-99); Potassium 3.1 mmol/L (3.3-5.1); Sodium Level 148 mmol/L (133-145)
[2024-09-17] MEDS: Menthol/Lanolin/Calamine/Znox 113 GM Tube 1 APPLIC TOPICAL ×2 (04:50→21:48)
--- NOTE | 2024-09-17 09:05 | PN.HOSP_ITS ---
Reason for Visit Reason for Visit: Diagnoses Acute and chronic respiratory failure with hypercapnia (09/05/24) Urinary tract infection, site not specified (09/05/24) Fracture of unspecified part of neck of left femur, initial encounter for closed fracture (09/05/24) long term care social worker (current) use of anticoagulants (09/05/24) Subjective Subjective Patient seen currently on BiPAP. Per nursing staff he has been intermittently on and off BiPAP. Potassium down to 3.1 sodium up to 148. Objective Data Objective Data Vital Signs: Vital Signs Temp Pulse Resp BP Pulse Ox O2 Del Method O2 Flow Rate 97.1 F L 60 36 H 141/57 H 100 Bi-pap 3 09/17/24 05:00 09/17/24 05:00 09/17/24 05:00 09/17/24 05:00 09/17/24 05:00 09/17/24 05:00 09/16/24 20:02 FiO2 30 09/17/24 04:45 Oxygen Flow Rate (L/min) 3 Oxygen Delivery Method Bi-pap Weight: 63.6 kg Body Mass Index (BMI) 24.0 Intake & Output: Intake and Output for Last 24 Hours 09/15/24 09/16/24 09/17/24 23:59 23:59 23:59 Intake Total 445.83 / 452.36 353.48 / 353.48 Output Total 3600 / 3600 2775 / 2775 400 / 400 Balance -3154.17 / -3147.64 -2421.52 / -2421.52 -400 / -400 Lab / Micro Data 09/17/24 03:16 09/17/24 03:16 Labs: Laboratory Results - last 24 hr 09/16/24 17:05: POC Glucose 129 H 09/17/24 00:48: POC Glucose 128 H 09/17/24 03:16: WBC 14.3 H, RBC 3.20 L, Hgb 9.8 L, Hct 30.4 L, MCV 95.0 H, MCH 30.6, MCHC 32.2, RDW Std Deviation 49.4 H, RDW Coeff of Larry 14.0, Plt Count 621 H, MPV 8.6, Immature Gran % (Auto) 1.300 H, Neut % (Auto) 86.5 H, Lymph % (Auto) 4.3 L, [place] % (Auto) 7.2, Eos % (Auto) 0.0, Baso % (Auto) 0.7, Absolute Neuts (auto) 12.4 H, Absolute Lymphs (auto) 0.62 L, Nucleated RBC % 0, Sodium 148 H, P otassium 3.1 L, Chloride 101, Carbon Dioxide 32.0, Anion Gap 15, BUN 58 H, C reatinine 1.81 H, Estim Creat Clear Calc 28.62 L, Est GFR (MDRD) Non-Af 38 L, B UN/Creatinine Ratio 32.0 H, Glucose 133 H, Calcium 9.2 Micro: Microbiology 09/14/24 08:15 Blood Culture (Wb) - No Site/Description Given Blood Culture - Preliminary No growth in 48 hours. 09/14/24 08:15 Blood Culture (Wb) - Pic Blood Culture - Preliminary No growth in 48 hours. 09/14/24 08:15 Urine Catheter - Hendrix Urine Culture - Final Culture exhibits no growth. 09/14/24 08:28 Sputum, Tracheal Aspirate Gram Stain - Final 09/14/24 08:28 Sputum, Tracheal Aspirate Respiratory Culture - Final Presumptive C albicans 09/10/24 02:18 Blood Culture (Wb) - Left Forearm Blood Culture - Final No growth in 5 days. 09/14/24 08:40 Urine Catheter - Hendrix Legionella Antigen - Final 09/14/24 08:40 Urine Catheter - Hendrix Streptococcus pneumoniae Antigen (M - Final 09/14/24 08:28 Mucosa - Nose Coronavirus COVID-19 PCR - Final 09/14/24 08:28 Mucosa - Nose Influenza & RSV (PCR) - Final 09/10/24 02:20 Urine Catheter - Hendrix Urine Culture - Final Culture exhibits no growth. 09/10/24 02:49 Sputum, Expectorated/Coughed Gram Stain - Final 09/10/24 02:49 Sputum, Expectorated/Coughed Respiratory Culture - Final Presumptive C albicans 09/05/24 02:46 Blood Culture (Wb) - Anticubital Left Blood Culture - Final No growth in 5 days. 09/05/24 03:00 Blood Culture (Wb) - Left Hand Blood Culture - Final No growth in 5 days. 09/05/24 04:30 Sputum, Induced/Lukens Gram Stain - Final 09/05/24 04:30 Sputum, Induced/Lukens Respiratory Culture - Final Mixed normal respiratory rogelio. No Streptococcus pneumoniae, beta-hemolytic Streptococcus or Staphylococcus aureus isolated. 09/05/24 01:00 Urine, Clean Catch Urine Culture - Final Staphylococcus epidermidis Physical Exam Narrative GENERAL: On BiPAP HEENT: ET tube in place EYES; Anicteric, Normal Conjunctiva NECK; supple, normal thyroid, RESPIRATORY: Diminished to auscultation CARDIOVASCULAR: Regular S1 S2, GI: soft, normoactive bowel sounds, : No Renal angle tenderness; EXTREMITIES: Edema involving both upper and lower extremity, MUSCULOSKELETAL: no muscle wasting NEURO: No lateralizing signs SKIN: No Rash PSYCH; flat affect Assessment & Plan Assessment/Plan (1) Closed fracture of neck of left femur: QUALIFIERS: Encounter type: initial encounter Qualified Code(s): S72.002A - Fracture of unspecified part of neck of left femur, initial encounter for closed fracture PLAN: Plan Patient is a 79-year-old gentleman with 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 Intubated in the ED due to metabolic encephalopathy secondary to hypercapnia. Patient subsequently underwent left femoral neck fracture repair on 09/09/2024 1. Acute on chronic hypoxic and hypercapnic respiratory failure ? Secondary to restrictive lung disease. Patient presented with altered mental status and elevated pCO2 patient was intubated and subsequently admitted to the intensive care unit. Vent management deferred to motor vehicles supervisor/critical care ? 09/14/2024; patient seen remains on the vent patient continues to spike fevers subsequently ordered urine culture and urinalysis with reflex culture, blood culture, checks x-ray, COVID assay as well as viral respiratory panel ? 09/15/2024;Patient was weaned off the vent the day prior subsequently placed on AVAPS and still remains on that attempt to wean patient off AVAPS so far unsuccessful ? 09/16/2024; patient has been weaned down to nasal cannula 2. Acute metabolic encephalopathy ? Secondary to above 09/14/2024; a complete assessment will be performed once patient is off the vent ? 09/15/2024; patient was essentially weaned off the vent the day prior his level of sensorium appears to be back to baseline ? 09/16/2024; nursing staff reports intermittent delirium 3. Acute mechanical fall with left femoral neck fracture ? Patient underwent surgical repair on 09/09/2024 4. Acute kidney injury ? Patient had been empirically started on vancomycin and Zosyn do suspect drug- induced nephritis. Offending medications discontinued. Monitoring response to therapy with daily BMP.With patient kidney function continues to worsen consult was placed to nephrology ? 09/14/2024; ordered kidney ultrasound to rule out obstructive uropathy. Patient creatinine 1.9 this a.m. repeat labs ordered in a.m. ? 09/15/2024; creatinine down to 1.8 ? 09/16/2024; no change in patient kidney function ? 09/17/2024; no change in kidney function 5. Anemia ? Secondary to chronic disorder monitoring H&H and transfuse if patient becomes symptomatic or hemoglobin falls below 7 6. Acute on chronic congestive heart failure with preserved ejection fraction ? Echo obtained on 07/22/2024 demonstrated EF of 55% with PASP of 5035 mmHg. Patient did receive Lasix 7. Paroxysmal A-fib ? Patient is on on sotalol as well as systemic anticoagulation with apixaban.. Home medications continued 8. 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 Patient has significant complications including restrictive lung disease 9. Depression ? Patient is on venlafaxine, plan is to resume once off the event 10. Central sleep apnea ? Patient uses BiPAP at night will resume when patient is extubated 11 Chronic hypoxic and hypercapnic respiratory failure ? Patient is on continuous home oxygen during the day 12. BPH with lower urinary obstructive symptoms - Patient treated with tamsulosin, continued 13. Hypokalemia - Potassium this a.m. is 3.4 corrected per protocol, repeat labs ordered for monitoring unit. Also added magnesium level for a.m. ? 09/14/2024; patient potassium remains low additional replacement given repeat labs ordered for a.m. 14. Essential hypertension ? Patient blood pressure control remains labile we will continue with monitoring and adjust medications if warranted 15. DVT prophylaxis ? On apixaban 16. Hypernatremia ? Adjusted patient IV fluid, repeated BMP in a.m. Charges/Coding Visit Charges Inpatient E&M: 95738 Subs Hosp L2
--- NOTE | 2024-09-17 09:38 | CASEMGMT ---
Discharge Planning A list of SNF providers including quality and resource use data and consistent with the patient's preferred geographic region, medical needs, and insurance network was created in [employer] Guide.? This list was provided to the PERRY. Catherine Bridges Discharge Planning Asst
[2024-09-17] MEDS: KCL 20MEQ in 0.45%NS 20 MEQ/1,000 ML IV.SOLN. 100 MEQ IV ×2 (10:12→20:40)
[2024-09-17] MEDS: 0.9% Saline Lock 10 ML Syringe IV (10:13)
--- NOTE | 2024-09-17 10:18 | PCM.PN.INT ---
Assessment & Plan Assessment/Plan (1) Closed fracture of neck of left femur: QUALIFIERS: Encounter type: initial encounter Qualified Code(s): S72.002A - Fracture of unspecified part of neck of left femur, initial encounter for closed fracture (2) Current use of prison anticoagulation: (3) UTI (urinary tract infection): (4) Acute on chronic respiratory failure with hypercapnia: PLAN: Plan RECOMMENDATIONS: 1. Continue AVAPS therapy with naps and nightly. 2. Continue to wean supplemental oxygen to maintain saturations at or above 90%. 3. Continue scheduled BuSpar. 4. Continue scheduled bronchodilators. 5. Continue Eliquis per home regimen. 6. Encourage incentive spirometer use and mobilize patient as tolerated. 7. The patient is medically stable for transfer out of the intensive care unit. Will sign off from a critical care perspective. IMPRESSIONS: 1. Acute on chronic combined respiratory failure Unclear precipitating etiolog. 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 The patient was ultimately intubated in the emergency department due to hypercarbic encephalopathy. With supportive care, the patient was able to be extubated. Recommend continuing AVAPS therapy, per home regimen, with naps and nightly. Continue to wean supplemental oxygen to maintain saturations at or above 90%. Volume status is improved with diuresis. Encourage incentive spirometer use and mobilize patient as tolerated. 2. Metabolic encephalopathy Resolved. Likely secondary to acute CO2 retention noted in the emergency department, requiring invasive mechanical ventilatory support. CT head was unremarkable. Continue AVAPS therapy with naps and nightly. 3. Acute left femoral neck fracture The patient is status post surgical repair on September 09, 2024. Continue current supportive measures and pain control. 4. History of syncope secondary to atrial fibrillation with RVR/hypertension/BPH/sleep apnea Complicates care, management, recovery and prognosis. Continue supportive measures as noted above. This note was generated with [employer] dictation software. It may contain incorrect words, spelling, and punctuation that were not noted in checking the note before signing. Subjective Subjective The patient was seen and examined at the bedside this morning. Events from the last 24 hours have been reviewed. The patient is currently afebrile, hemodynamically stable and maintaining appropriate oxygen saturations on 3 L/min via nasal cannula. The patient was once again tolerant of AVAPS therapy overnight. He is documented to be overall net +7 L for the hospitalization. Creatinine is stable at 1.8. Objective Data Objective Data The patient's most recent lab work, culture data and imaging studies have all been personally reviewed. Surface echocardiogram from July 2024 demonstrated normal LV size and function with an ejection fraction of 55%. Sputum culture dated September 10 was positive for presumptive Raven albicans. Vital Signs: Vital Signs Temp Pulse Resp BP Pulse Ox O2 Del Method O2 Flow Rate 97.1 F L 60 36 H 141/57 H 99 Nasal Cannula 3 09/17/24 05:00 09/17/24 05:00 09/17/24 05:00 09/17/24 05:00 09/17/24 09:24 09/17/24 09:24 09/17/24 09:24 FiO2 30 09/17/24 04:45 Oxygen Flow Rate (L/min) 3 Oxygen Delivery Method Nasal Cannula Weight: 140 lb 3.424 oz Body Mass Index (BMI) 24.0 Intake & Output: Intake and Output for Last 24 Hours 09/15/24 09/16/24 09/17/24 23:59 23:59 23:59 Intake Total 445.83 / 452.36 353.48 / 353.48 Output Total 3600 / 3600 2775 / 2775 400 / 400 Balance -3154.17 / -3147.64 -2421.52 / -2421.52 -400 / -400 Lab / Micro Data Attestation: I reviewed the patient's lab results. 09/17/24 03:16 09/17/24 03:16 Labs: Laboratory Results - last 24 hr 09/16/24 17:05: POC Glucose 129 H 09/17/24 00:48: POC Glucose 128 H 09/17/24 03:16: WBC 14.3 H, RBC 3.20 L, Hgb 9.8 L, Hct 30.4 L, MCV 95.0 H, MCH 30.6, MCHC 32.2, RDW Std Deviation 49.4 H, RDW Coeff of Larry 14.0, Plt Count 621 H, MPV 8.6, Immature Gran % (Auto) 1.300 H, Neut % (Auto) 86.5 H, Lymph % (Auto) 4.3 L, Door % (Auto) 7.2, Eos % (Auto) 0.0, Baso % (Auto) 0.7, Absolute Neuts (auto) 12.4 H, Absolute Lymphs (auto) 0.62 L, Nucleated RBC % 0, Sodium 148 H, Potassium 3.1 L, Chloride 101, Carbon Dioxide 32.0, Anion Gap 15, BUN 58 H, Creatinine 1.81 H, Estim Creat Clear Calc 28.62 L, Est GFR (MDRD) Non-Af 38 L, BUN/Creatinine Ratio 32.0 H, Glucose 133 H, Calcium 9.2 Micro: Microbiology 09/14/24 08:15 Blood Culture (Wb) - No Site/Description Given Blood Culture - Preliminary No growth in 48 hours. 09/14/24 08:15 Blood Culture (Wb) - Pic Blood Culture - Preliminary No growth in 48 hours. 09/14/24 08:15 Urine Catheter - Hendrix Urine Culture - Final Culture exhibits no growth. 09/14/24 08:28 Sputum, Tracheal Aspirate Gram Stain - Final 09/14/24 08:28 Sputum, Tracheal Aspirate Respiratory Culture - Final Presumptive C albicans 09/10/24 02:18 Blood Culture (Wb) - Left Forearm Blood Culture - Final No growth in 5 days. 09/14/24 08:40 Urine Catheter - Hendrix Legionella Antigen - Final 09/14/24 08:40 Urine Catheter - Hendrix Streptococcus pneumoniae Antigen (M - Final 09/14/24 08:28 Mucosa - Nose Coronavirus COVID-19 PCR - Final 09/14/24 08:28 Mucosa - Nose Influenza & RSV (PCR) - Final 09/10/24 02:20 Urine Catheter - Hendrix Urine Culture - Final Culture exhibits no growth. 09/10/24 02:49 Sputum, Expectorated/Coughed Gram Stain - Final 09/10/24 02:49 Sputum, Expectorated/Coughed Respiratory Culture - Final Presumptive C albicans 09/05/24 02:46 Blood Culture (Wb) - Anticubital Left Blood Culture - Final No growth in 5 days. 09/05/24 03:00 Blood Culture (Wb) - Left Hand Blood Culture - Final No growth in 5 days. 09/05/24 04:30 Sputum, Induced/Lukens Gram Stain - Final 09/05/24 04:30 Sputum, Induced/Lukens Respiratory Culture - Final Mixed normal respiratory rogelio. No Streptococcus pneumoniae, beta-hemolytic Streptococcus or Staphylococcus aureus isolated. 09/05/24 01:00 Urine, Clean Catch Urine Culture - Final Staphylococcus epidermidis ABG Data ABG results: ABG 09/15/24 16:43 Specimen Type ART Sample Site L Brach pH 7.44 Bicarbonate Actual 28.4 H Total CO2 30 Base Excess 4 H O2 Saturation 98 O2 % 30.0 ABG pCO2 41.6 ABG pO2 93 Stephane Test Positive O2 Delivery Device BiPAP Vent Mode Not entered Tidal Volume 450.0 POC PEEP 8 Clinical Comments avaps 16 Radiography Diagnostic Testing: Radiology Impression Chest X-Ray 09/14/24 07:45 IMPRESSION: Endotracheal tube tip 4.6 cm above the gail. Otherwise stable exam. Reading Location: [facility] Physical Exam Const alert and no apparent distress General Appearance: cooperative HEENT normocephalic and head/scalp atraumatic Eyes PERRL, EOMs intact bilaterally and conjunctivae normal Neck supple General: trachea midline Chest inspection of chest normal Resp normal respiratory effort and no use of accessory muscles Auscultation: diminished lung sounds Cardio regular rate and regular rhythm GI normal to inspection, nondistended, normoactive bowel sounds Extremity no clubbing, cyanosis or edema Skin no rashes or lesions noted Neuro CN's II-XII intact bilaterally, moves all extremities and no focal motor deficits Psych Mood & Affect: flat affect Charges/Coding Visit Charges Inpatient E&M: 53238 Subs Hosp L2
[2024-09-17] MEDS: APIXABAN 5 MG TABLET PO (10:58)
[2024-09-17] MEDS: busPIRone 5 MG Tablet 10 MG PO (10:58)
[2024-09-17] MEDS: Tamsulosin HCl 0.4 MG Capsule PO ×2 (10:58→21:48)
[2024-09-17] MEDS: Sotalol Hydrochloride 80 MG Tablet GT ×2 (10:58→21:47)
[2024-09-17] MEDS: Venlafaxine XR 75 MG Capsule PO (10:58)
[2024-09-17] MEDS: CHLORHEXIDINE GLUC 2% CLOTH 1 EACH TOWELETTE TOPICAL (11:11)
[2024-09-17 12:50] LABS: Allen Test Positive; Base Excess 9 mmol/L (-2 to +2); Bicarbonate 39.2 mmol/L (22-26); Blood Gas Specimen Type ART; Comment avaps; Mode Not entered; O2 Delivery Device BiPAP; PEEP 8; PO2 94 mmHG (75-100); RR 16; SITE R Radial; SO2 92 % (95-99); Time Given 12:47:35; Total Carbon Dioxide 43 mmol/L; pCO2 130.9 mmHg (35-45); pH 7.08 (7.35-7.45)
--- NOTE | 2024-09-17 12:55 | PCM.PN.REN ---
Subjective Subjective not very responsive to name dw family bedside Objective Data Objective Data Vital Signs: Vital Signs Temp Pulse Resp BP Pulse Ox O2 Del Method O2 Flow Rate 97.1 F L 60 36 H 141/57 H 99 Nasal Cannula 3 09/17/24 05:00 09/17/24 05:00 09/17/24 05:00 09/17/24 05:00 09/17/24 09:24 09/17/24 09:24 09/17/24 09:24 FiO2 30 09/17/24 04:45 Oxygen Flow Rate (L/min) 3 Oxygen Delivery Method Nasal Cannula Weight: 63.6 kg Body Mass Index (BMI) 24.0 Intake & Output: Intake and Output for Last 24 Hours 09/15/24 09/16/24 09/17/24 23:59 23:59 23:59 Intake Total 445.83 / 452.36 353.48 / 353.48 Output Total 3600 / 3600 2775 / 2775 400 / 400 Balance -3154.17 / -3147.64 -2421.52 / -2421.52 -400 / -400 Lab / Micro Data 09/17/24 03:16 09/17/24 03:16 Labs: Laboratory Results - last 24 hr 09/16/24 17:05: POC Glucose 129 H 09/17/24 00:48: POC Glucose 128 H 09/17/24 03:16: WBC 14.3 H, RBC 3.20 L, Hgb 9.8 L, Hct 30.4 L, MCV 95.0 H, MCH 30.6, MCHC 32.2, RDW Std Deviation 49.4 H, RDW Coeff of Larry 14.0, Plt Count 621 H, MPV 8.6, Immature Gran % (Auto) 1.300 H, Neut % (Auto) 86.5 H, Lymph % (Auto) 4.3 L, [place] % (Auto) 7.2, Eos % (Auto) 0.0, Baso % (Auto) 0.7, Absolute Neuts (auto) 12.4 H, Absolute Lymphs (auto) 0.62 L, Nucleated RBC % 0, Sodium 148 H, Potassium 3.1 L, Chloride 101, Carbon Dioxide 32.0, Anion Gap 15, BUN 58 H, Creatinine 1.81 H, Estim Creat Clear Calc 28.62 L, Est GFR (MDRD) Non-Af 38 L, BUN/Creatinine Ratio 32.0 H, Glucose 133 H, Calcium 9.2 Micro: Microbiology 09/14/24 08:15 Blood Culture (Wb) - No Site/Description Given Blood Culture - Preliminary No growth in 48 hours. 09/14/24 08:15 Blood Culture (Wb) - Pic Blood Culture - Preliminary No growth in 48 hours. 09/14/24 08:15 Urine Catheter - Hendrix Urine Culture - Final Culture exhibits no growth. 09/14/24 08:28 Sputum, Tracheal Aspirate Gram Stain - Final 09/14/24 08:28 Sputum, Tracheal Aspirate Respiratory Culture - Final Presumptive C albicans 09/10/24 02:18 Blood Culture (Wb) - Left Forearm Blood Culture - Final No growth in 5 days. 09/14/24 08:40 Urine Catheter - Hendrix Legionella Antigen - Final 09/14/24 08:40 Urine Catheter - Hendrix Streptococcus pneumoniae Antigen (M - Final 09/14/24 08:28 Mucosa - Nose Coronavirus COVID-19 PCR - Final 09/14/24 08:28 Mucosa - Nose Influenza & RSV (PCR) - Final 09/10/24 02:20 Urine Catheter - Hendrix Urine Culture - Final Culture exhibits no growth. 09/10/24 02:49 Sputum, Expectorated/Coughed Gram Stain - Final 09/10/24 02:49 Sputum, Expectorated/Coughed Respiratory Culture - Final Presumptive C albicans 09/05/24 02:46 Blood Culture (Wb) - Anticubital Left Blood Culture - Final No growth in 5 days. 09/05/24 03:00 Blood Culture (Wb) - Left Hand Blood Culture - Final No growth in 5 days. 09/05/24 04:30 Sputum, Induced/Lukens Gram Stain - Final 09/05/24 04:30 Sputum, Induced/Lukens Respiratory Culture - Final Mixed normal respiratory rogelio. No Streptococcus pneumoniae, beta-hemolytic Streptococcus or Staphylococcus aureus isolated. 09/05/24 01:00 Urine, Clean Catch Urine Culture - Final Staphylococcus epidermidis ABG Data ABG results: ABG 09/17/24 12:46 Specimen Type ART Sample Site R Radial pH 7.08 L* Bicarbonate Actual 39.2 H Total CO2 43 Base Excess 9 H O2 Saturation 92 L O2 % 30.0 ABG pCO2 130.9 H* ABG pO2 94 Stephane Test Positive Respiration Rate 16 O2 Delivery Device BiPAP Vent Mode Not entered Tidal Volume 450.0 POC PEEP 8 Crit Call To/Read Back Yes Blood Gas Notified Whom jason Blood Gas Notified Time 12:47:35 Clinical Comments avaps Physical Exam Narrative Alert and oriented, no apparent distress. 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 Found to have left hip fracture. Patient underwent surgical repair on September 09. Nephrology consulted in view of elevated creatinine. Patient has normal baseline creatinine trends, creatinine was less than 1 on admission. Creatinine began to rise on September 11 at 1.67. Creatinine peaked 2.18 on September 13. Today creatinine 1.81. TERRENCE likely secondary to ATN. With volume expansion blood pressures improving, renal function has slightly improved, he is not requiring IV pressors at this time. Patient is nonoliguric
[2024-09-17] MEDS: Midazolam 2 MG/2 ML Syringe IV (13:05)
[2024-09-17] MEDS: Etomidate 20 MG/10 ML Vial IV (13:06)
--- NOTE | 2024-09-17 13:14 | PN_ITS ---
Progress Note I was notified by staff that the patient had become increasingly lethargic this afternoon. The patient was noted to be obtunded and minimally responsive. Therefore, ABG was obtained, which demonstrated a pH of 7.08 with a PCO2 of 131 and PO2 of 94. In light of the aforementioned, I did speak personally with the patient's brother at the bedside and contacted his via telephone, who was in agreement with reintubation. I did ask that she present to the hospital tomorrow morning for rounds for a goals of care discussion. The patient was s ubsequently intubated once again, without complication.
--- NOTE | 2024-09-17 13:16 | PCM.OP.PRO2 ---
Procedures Hospitalists Procedures: 17009 Insert Emergency Airway Non-invasive Procedural Procedure Information Date of Procedure: 09/17/24 Description of procedure: Intubation Indication: Respiratory failure Consent was obtained from: Patient's The patient was placed in the appropriate sniffing position. Preoxygenated sedation via [id number] was provided for a minimum of 3 minutes. The patient had continuous cardiac as well as pulse oximetry monitoring during the procedure. Procedure sedation was provided by the administration of 2 mg of Versed and 20 mg of etomidate. Direct laryngoscopy was then performed using a number 4 MAC blade, which revealed a grade 1 view. A 7.5 mm endotracheal tube was visualized advancing between the cords to the level of 23 cm at the lip. The stylette was then removed and discarded. Tube placement was confirmed by fogging in the tube along with equal and bilateral breath sounds. Colorimetric change was visualized on the CO2 meter. The cuff was then inflated and the tube secured using a commercially available device. A good pulse oximetry waveform was seen on the monitor throughout the procedure. A portable chest x-ray has been ordered to confirm appropriate placement. The patient tolerated the procedure well.
--- NOTE | 2024-09-17 13:25 | RAD_ITS ---
PROCEDURE: CHEST 1 VIEW (PORTABLE) 09/17/2024 REASON FOR EXAM: INTUBATION TECHNIQUE: Frontal view of the chest. COMPARISON: September 15, 2024 FINDINGS: There is an ET tube in position, 4.3 cm above the level of the gail. An enteric tube is seen with its tip below the level of the diaphragm. There is a central line on the right with its tip above the level of the right atrium. There is cardiomegaly, similar to the prior. There is continued volume loss in the right lung, similar to the prior with a component of effusion not excluded. The left lung appears clear. There is no definite pneumothorax. There is no visible acute bony abnormality. Aortic calcifications are noted. RAD/Chest 1 View (Portable) IMPRESSION: Tubes and lines in position. There is cardiomegaly, similar to the prior. There is continued volume loss in the right lung, similar to the prior with a c omponent of effusion not excluded. Reading Location: [facility]
[2024-09-17] MEDS: Norepinephrine 8 MG in 0.9% Normal Saline (250mL Bag) 242 ML 9.4 MG CONT INF (13:55)
[2024-09-17] MEDS: fentaNYL drip 100 ML 5 MCG CONT INF (14:00)
[2024-09-17] MEDS: dexMEDEtomidine 400 MCG in 0.9% Normal Saline (100mL Bag) 96 ML 8 MCG CONT INF (14:11)
[2024-09-17 15:20] LABS: Allen Test Positive; Base Excess 12 mmol/L (-2 to +2); Bicarbonate 34.2 mmol/L (22-26); Blood Gas Specimen Type ART; Mode AC; O2 Delivery Device Adult Vent; PEEP 5; PO2 101 mmHG (75-100); RR 14; SITE R Radial; SO2 99 % (95-99); Total Carbon Dioxide 36 mmol/L; pCO2 40.5 mmHg (35-45); pH 7.54 (7.35-7.45)
--- NOTE | 2024-09-17 16:35 | CASEMGMT ---
Social Work- SW participated in interdisciplinary rounds with pt care team. Pt to continue to have medical work-up today. Pt plans to come in to the hospital tomorrow. SW to meet with pt at that time regarding discharge planning. MARISELA Lara
[2024-09-17 19:29] LABS: Bedside Glucose 89 mg/dL (74-106)
[2024-09-17] MEDS: busPIRone 5 MG Tablet 10 MG GT (21:46)
[2024-09-17] MEDS: APIXABAN 5 MG TABLET GT (21:46)
[2024-09-17] MEDS: fentaNYL drip 100 ML 10 MCG CONT INF (23:31)
[2024-09-18] VITALS (35 sets, daily range): BP systolic 105–152; BP diastolic 51–93; PULSE 43–69; RESP 12–36; TEMP 36.3–37.1; O2SAT 88–100; BMI 24.2
[2024-09-18 01:46] LABS: Bedside Glucose 80 mg/dL (74-106)
[2024-09-18] MEDS: Ipratropium/Albuterol Sulfate 3 ML AMPUL.NEB INHALATION ×3 (01:51→19:26)
[2024-09-18 04:40] LABS: Absolute Lymphocyte Count 0.73 X10^3/uL (0.83-4.51); Absolute Neutrophil Count 12.2 X10^3/uL (2.0-7.7); Basophil# 0.04 X10^3/uL; Basophil% 0.3 % (0-1); Eosinophil# 0.01 X10^3/uL; Eosinophils% 0.1 % (0-5); Hematocrit 25.6 % (40-54); Hemoglobin 8.3 g/dL (13.0-16.5); Lymphocyte # 0.73 X10^3/ul (0.83-4.51); Lymphocyte % 5.1 % (19-41); Mean Corp Hgb Conc 32.4 g/dL (32-36); Mean Corpuscular Hgb 30.3 pg (27.0-32.0); Mean Corpuscular Volume 93.4 fL (80-94); Mean Platelet Vol. 9.1 fl (6.2-12.0); Monocyte# 1.17 X10^3/uL; Monocyte% 8.2 % (0-10); NRBC Flagged by Analyzer 0 % (0-5); Neutrophil # 12.19 X10^3/uL (2.7-7.7); Neutrophil % 85.3 % (47-70); Platelet Count 542 K/mm3 (150-450); RBC Distribution Width SD 46.8 fl (35.1-43.9); Red Blood Count 2.74 M/mm3 (4.6-6.2); White Blood Count 14.3 K/mm3 (4.4-11.0)
[2024-09-18 05:10] LABS: Anion Gap 12 (5-15); BUN 60 mg/dL (4-19); Calcium,Total 8.1 mg/dL (7.6-11.0); Carbon Dioxide 27.8 mmol/L (21.0-32.0); Chloride 104 mmol/L (98-108); Creatinine, Serum 1.51 mg/dL (0.70-1.20); EST Glomerular Filtration Rate 47 (>60); Glucose 412 mg/dL (70-99); Potassium 4.1 mmol/L (3.3-5.1); Sodium Level 144 mmol/L (133-145)
[2024-09-18] MEDS: Menthol/Lanolin/Calamine/Znox 113 GM Tube 1 APPLIC TOPICAL ×3 (05:59→21:43)
[2024-09-18 06:17] LABS: Bedside Glucose 125 mg/dL (74-106)
[2024-09-18] MEDS: KCL 20MEQ in 0.45%NS 20 MEQ/1,000 ML IV.SOLN. 100 MEQ IV ×2 (06:20→16:22)
--- NOTE | 2024-09-18 06:56 | PN.CC_ITS ---
Assessment & Plan Assessment/Plan (1) Closed fracture of neck of left femur: QUALIFIERS: Encounter type: initial encounter Qualified Code(s): S72.002A - Fracture of unspecified part of neck of left femur, initial encounter for closed fracture (2) Current use of fci anticoagulation: (3) UTI (urinary tract infection): (4) Acute on chronic respiratory failure with hypercapnia: PLAN: Plan RECOMMENDATIONS: 1. Continue assist-control mode mechanical ventilation. Wean FiO2 and PEEP as tolerated. 2. Continue Precedex and fentanyl for sedation. 3. Continue scheduled bronchodilators. 4. Continue Eliquis per home regimen. 5. Resume Protonix for GI prophylaxis. 6. Goals of care discussion with the patient and family today. IMPRESSIONS: 1. Acute on chronic combined respiratory failure Unclear precipitating etiology. 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 The patient was ultimately intubated in the emergency department due to hypercarbic encephalopathy. With supportive care, the patient was able to be extubated for the first time on September 14. The patient was initially doing well from a respiratory perspective until the afternoon of September 17 when he became obtunded in the setting of hypercarbic encephalopathy. The patient subsequently required reintubation with improvement in his acid-base status with invasive mechanical ventilatory support. 2. Metabolic encephalopathy Resolved. Likely secondary to acute CO2 retention noted in the emergency department, requiring invasive mechanical ventilatory support. CT head was unremarkable. 3. Acute left femoral neck fracture The patient is status post surgical repair on September 09, 2024. Continue current supportive measures and pain control. 4. History of syncope secondary to atrial fibrillation with RVR/hypertension/BPH/sleep apnea Complicates care, management, recovery and prognosis. Continue supportive measures as noted above. TIME: 34 minutes of critical care time, independent of procedures, was spent addressing the patient's acute on chronic combined respiratory failure, metabolic encephalopathy, review of all data and collaboration with care team. Subjective Subjective The patient was seen and examined at the bedside this morning. Events from the last 24 hours have been reviewed. The patient is currently afebrile, hemodynamically stable and maintaining appropriate oxygen saturations on assist- control mode mechanical ventilation with an FiO2 requirement of 30% and PEEP of 5. The patient did require reintubation yesterday afternoon after he became obtunded in the setting of hypercarbic encephalopathy. He is documented to be overall net positive a liter for the hospitalization. Hemoglobin is stable this morning at 8.3 g/dL. Creatinine has improved to 1.5. Objective Data Objective Data The patient's most recent lab work, culture data and imaging studies have all been personally reviewed. Surface echocardiogram from July 2024 demonstrated normal LV size and function with an ejection fraction of 55%. Sputum culture dated September 10 was positive for presumptive [place] albicans. Vital Signs: Vital Signs Temp Pulse Resp BP Pulse Ox O2 Del Method O2 Flow Rate 97.6 F L 53 L 20 H 116/66 94 Mechanical Ventilator 3 09/18/24 06:00 09/18/24 06:41 09/18/24 06:41 09/18/24 06:00 09/18/24 06:41 09/18/24 06:00 09/17/24 09:24 FiO2 30 09/18/24 06:41 Oxygen Flow Rate (L/min) 3 Oxygen Delivery Method Mechanical Ventilator Weight: 141 lb 1.533 oz Body Mass Index (BMI) 24.2 Intake & Output: Intake and Output for Last 24 Hours 09/16/24 09/17/24 09/18/24 23:59 23:59 23:59 Intake Total 353.48 / 353.48 1274.27 / 1279.10 1021.50 / 1021.50 Output Total 2775 / 2775 750 / 750 Balance -2421.52 / -2421.52 524.27 / 529.10 1021.50 / 1021.50 Lab / Micro Data Attestation: I reviewed the patient's lab results. 09/18/24 04:22 09/18/24 04:22 Labs: Laboratory Results - last 24 hr 09/17/24 19:10: POC Glucose 89 09/18/24 01:18: POC Glucose 80 09/18/24 04:22: WBC 14.3 H, RBC 2.74 L, Hgb 8.3 L, Hct 25.6 L, MCV 93.4, MCH 30.3, MCHC 32.4, RDW Std Deviation 46.8 H, RDW Coeff of Larry 14.0, Plt Count 542 H, MPV 9.1, Immature Gran % (Auto) 1.000 H, Neut % (Auto) 85.3 H, Lymph % (Auto) 5.1 L, [place] % (Auto) 8.2, Eos % (Auto) 0.1, Baso % (Auto) 0.3, Absolute Neuts (auto) 12.2 H, Absolute Lymphs (auto) 0.73 L, Nucleated RBC % 0, Sodium 144, Potassium 4.1, Chloride 104, Carbon Dioxide 27.8, Anion Gap 12, BUN 60 H, C reatinine 1.51 H, Estim Creat Clear Calc 34.30 L, Est GFR (MDRD) Non-Af 47 L, B UN/Creatinine Ratio 40.0 H, Glucose 412 H, Calcium 8.1 09/18/24 05:57: POC Glucose 125 H Micro: Microbiology 09/14/24 08:15 Blood Culture (Wb) - No Site/Description Given Blood Culture - Preliminary No growth in 48 hours. 09/14/24 08:15 Blood Culture (Wb) - Pic Blood Culture - Preliminary No growth in 48 hours. 09/14/24 08:15 Urine Catheter - Hendrix Urine Culture - Final Culture exhibits no growth. 09/14/24 08:28 Sputum, Tracheal Aspirate Gram Stain - Final 09/14/24 08:28 Sputum, Tracheal Aspirate Respiratory Culture - Final Presumptive C albicans 09/10/24 02:18 Blood Culture (Wb) - Left Forearm Blood Culture - Final No growth in 5 days. 09/14/24 08:40 Urine Catheter - Hendrix Legionella Antigen - Final 09/14/24 08:40 Urine Catheter - Hendrix Streptococcus pneumoniae Antigen (M - Final 09/14/24 08:28 Mucosa - Nose Coronavirus COVID-19 PCR - Final 09/14/24 08:28 Mucosa - Nose Influenza & RSV (PCR) - Final 09/10/24 02:20 Urine Catheter - Hendrix Urine Culture - Final Culture exhibits no growth. 09/10/24 02:49 Sputum, Expectorated/Coughed Gram Stain - Final 09/10/24 02:49 Sputum, Expectorated/Coughed Respiratory Culture - Final Presumptive C albicans 09/05/24 02:46 Blood Culture (Wb) - Anticubital Left Blood Culture - Final No growth in 5 days. 09/05/24 03:00 Blood Culture (Wb) - Left Hand Blood Culture - Final No growth in 5 days. 09/05/24 04:30 Sputum, Induced/Lukens Gram Stain - Final 09/05/24 04:30 Sputum, Induced/Lukens Respiratory Culture - Final Mixed normal respiratory rogelio. No Streptococcus pneumoniae, beta-hemolytic Streptococcus or Staphylococcus aureus isolated. 09/05/24 01:00 Urine, Clean Catch Urine Culture - Final Staphylococcus epidermidis ABG Data ABG results: ABG 09/17/24 09/17/24 12:46 15:16 Specimen Type ART ART Sample Site R Radial R Radial pH 7.08 L* 7.54 H Bicarbonate Actual 39.2 H 34.2 H Total CO2 43 36 Base Excess 9 H 12 H O2 Saturation 92 L 99 O2 % 30.0 50.0 ABG pCO2 130.9 H* 40.5 ABG pO2 94 101 H Stephane Test Positive Positive Respiration Rate 16 14 O2 Delivery Device BiPAP Adult Vent Vent Mode Not entered AC Tidal Volume 450.0 400.0 POC PEEP 8 5 Crit Call To/Read Back Yes Blood Gas Notified Whom brown Blood Gas Notified Time 12:47:35 Clinical Comments avaps Radiography Diagnostic Testing: Radiology Impression Chest X-Ray 09/17/24 13:25 IMPRESSION: Tubes and lines in position. There is cardiomegaly, similar to the prior. There is continued volume loss in the right lung, similar to the prior with a component of effusion not excluded. Reading Location: [facility] Physical Exam Const alert and no apparent distress Constitutional Narrative: The patient is alert despite being intubated and mechanically ventilated. General Appearance: cooperative and patient mechanically ventilated HEENT normocephalic and head/scalp atraumatic Mouth: endotracheal tube in place and OG tube in place Eyes PERRL, EOMs intact bilaterally and conjunctivae normal Neck supple General: trachea midline Chest inspection of chest normal Resp Auscultation: diminished lung sounds; Negative for rales, rhonchi or wheezes Cardio regular rate and regular rhythm GI normal to inspection, nondistended, normoactive bowel sounds Extremity no clubbing, cyanosis or edema Skin no rashes or lesions noted Neuro CN's II-XII intact bilaterally, moves all extremities and no focal motor deficits Psych Mood & Affect: anxious Charges/Coding Procedures Hospitalists Procedures: 33092 Critical Care 1st Hr
--- NOTE | 2024-09-18 07:17 | PN.HOSP_ITS ---
Reason for Visit Reason for Visit: Diagnoses Acute and chronic respiratory failure with hypercapnia (09/05/24) Acute kidney failure, unspecified (09/05/24) Urinary tract infection, site not specified (09/05/24) Fracture of unspecified part of neck of left femur, initial encounter for closed fracture (09/05/24) halfway (current) use of anticoagulants (09/05/24) Subjective Subjective Patient was reintubated after he was found to be significantly hypercapnic once of the BiPAP. Objective Data Objective Data Vital Signs: Vital Signs Temp Pulse Resp BP Pulse Ox O2 Del Method O2 Flow Rate 97.6 F L 52 L 13 123/58 H 93 Mechanical Ventilator 3 09/18/24 07:00 09/18/24 07:00 09/18/24 07:00 09/18/24 07:00 09/18/24 07:00 09/18/24 07:00 09/17/24 09:24 FiO2 30 09/18/24 07:00 Oxygen Flow Rate (L/min) 3 Oxygen Delivery Method Mechanical Ventilator Weight: 64 kg Body Mass Index (BMI) 24.2 Intake & Output: Intake and Output for Last 24 Hours 09/16/24 09/17/24 09/18/24 23:59 23:59 23:59 Intake Total 353.48 / 353.48 1274.27 / 1279.10 1026.50 / 1026.50 Output Total 2775 / 2775 750 / 750 250 / 250 Balance -2421.52 / -2421.52 524.27 / 529.10 776.50 / 776.50 Lab / Micro Data 09/18/24 04:22 09/18/24 04:22 Labs: Laboratory Results - last 24 hr 09/17/24 19:10: POC Glucose 89 09/18/24 01:18: POC Glucose 80 09/18/24 04:22: WBC 14.3 H, RBC 2.74 L, Hgb 8.3 L, Hct 25.6 L, MCV 93.4, MCH 30.3, MCHC 32.4, RDW Std Deviation 46.8 H, RDW Coeff of Larry 14.0, Plt Count 542 H, MPV 9.1, Immature Gran % (Auto) 1.000 H, Neut % (Auto) 85.3 H, Lymph % (Auto) 5.1 L, [place] % (Auto) 8.2, Eos % (Auto) 0.1, Baso % (Auto) 0.3, Absolute Neuts (auto) 12.2 H, Absolute Lymphs (auto) 0.73 L, Nucleated RBC % 0, Sodium 144, Potassium 4.1, Chloride 104, Carbon Dioxide 27.8, Anion Gap 12, BUN 60 H, C reatinine 1.51 H, Estim Creat Clear Calc 34.30 L, Est GFR (MDRD) Non-Af 47 L, B UN/Creatinine Ratio 40.0 H, Glucose 412 H, Calcium 8.1 09/18/24 05:57: POC Glucose 125 H Micro: Microbiology 09/14/24 08:15 Blood Culture (Wb) - No Site/Description Given Blood Culture - Preliminary No growth in 48 hours. 09/14/24 08:15 Blood Culture (Wb) - Pic Blood Culture - Preliminary No growth in 48 hours. 09/14/24 08:15 Urine Catheter - Hendrix Urine Culture - Final Culture exhibits no growth. 09/14/24 08:28 Sputum, Tracheal Aspirate Gram Stain - Final 09/14/24 08:28 Sputum, Tracheal Aspirate Respiratory Culture - Final Presumptive C albicans 09/10/24 02:18 Blood Culture (Wb) - Left Forearm Blood Culture - Final No growth in 5 days. 09/14/24 08:40 Urine Catheter - Hendrix Legionella Antigen - Final 09/14/24 08:40 Urine Catheter - Hendrix Streptococcus pneumoniae Antigen (M - Final 09/14/24 08:28 Mucosa - Nose Coronavirus COVID-19 PCR - Final 09/14/24 08:28 Mucosa - Nose Influenza & RSV (PCR) - Final 09/10/24 02:20 Urine Catheter - Hendrix Urine Culture - Final Culture exhibits no growth. 09/10/24 02:49 Sputum, Expectorated/Coughed Gram Stain - Final 09/10/24 02:49 Sputum, Expectorated/Coughed Respiratory Culture - Final Presumptive C albicans 09/05/24 02:46 Blood Culture (Wb) - Anticubital Left Blood Culture - Final No growth in 5 days. 09/05/24 03:00 Blood Culture (Wb) - Left Hand Blood Culture - Final No growth in 5 days. 09/05/24 04:30 Sputum, Induced/Lukens Gram Stain - Final 09/05/24 04:30 Sputum, Induced/Lukens Respiratory Culture - Final Mixed normal respiratory rogelio. No Streptococcus pneumoniae, beta-hemolytic Streptococcus or Staphylococcus aureus isolated. 09/05/24 01:00 Urine, Clean Catch Urine Culture - Final Staphylococcus epidermidis ABG Data ABG results: ABG 09/17/24 09/17/24 12:46 15:16 Specimen Type ART ART Sample Site R Radial R Radial pH 7.08 L* 7.54 H Bicarbonate Actual 39.2 H 34.2 H Total CO2 43 36 Base Excess 9 H 12 H O2 Saturation 92 L 99 O2 % 30.0 50.0 ABG pCO2 130.9 H* 40.5 ABG pO2 94 101 H Stephane Test Positive Positive Respiration Rate 16 14 O2 Delivery Device BiPAP Adult Vent Vent Mode Not entered AC Tidal Volume 450.0 400.0 POC PEEP 8 5 Crit Call To/Read Back Yes Blood Gas Notified Whom brown Blood Gas Notified Time 12:47:35 Clinical Comments avaps Radiography Diagnostic Testing: Radiology Impression Chest X-Ray 09/17/24 13:25 IMPRESSION: Tubes and lines in position. There is cardiomegaly, similar to the prior. There is continued volume loss in the right lung, similar to the prior with a component of effusion not excluded. Reading Location: [facility] Physical Exam Narrative GENERAL: Awake on the vent HEENT: ET tube in place EYES; Anicteric, Normal Conjunctiva NECK; supple, normal thyroid, RESPIRATORY: Diminished to auscultation CARDIOVASCULAR: Regular S1 S2, GI: soft, normoactive bowel sounds, : No Renal angle tenderness; EXTREMITIES: Edema involving both upper and lower extremity, MUSCULOSKELETAL: no muscle wasting NEURO: On the vent SKIN: No Rash PSYCH; flat affect Assessment & Plan Assessment/Plan (1) Closed fracture of neck of left femur: QUALIFIERS: Encounter type: initial encounter Qualified Code(s): S72.002A - Fracture of unspecified part of neck of left femur, initial encounter for closed fracture PLAN: Plan Patient is a 79-year-old gentleman with 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 Intubated in the ED due to metabolic encephalopathy secondary to hypercapnia. Patient subsequently underwent left femoral neck fracture repair on 09/09/2024 1. Acute on chronic hypoxic and hypercapnic respiratory failure ? Secondary to restrictive lung disease. Patient presented with altered mental status and elevated pCO2 patient was intubated and subsequently admitted to the intensive care unit. Vent management deferred to varnish melter helper/critical care ? 09/14/2024; patient seen remains on the vent patient continues to spike fevers subsequently ordered urine culture and urinalysis with reflex culture, blood culture, checks x-ray, COVID assay as well as viral respiratory panel ? 09/15/2024;Patient was weaned off the vent the day prior subsequently placed on AVAPS and still remains on that attempt to wean patient off AVAPS so far unsuccessful ? 09/16/2024; patient has been weaned down to nasal cannula ? 09/18/2024;Patient was reintubated after he was found to be significantly hypercapnic once off the BiPAP. Case was discussed with Dr Garcia with pulmonology plan is have a family discussion regarding options including possible trach 2. Acute metabolic encephalopathy ? Secondary to above 09/14/2024; a complete assessment will be performed once patient is off the vent ? 09/15/2024; patient was essentially weaned off the vent the day prior his level of sensorium appears to be back to baseline ? 09/16/2024; nursing staff reports intermittent delirium ? 09/18/2024; patient back on the vent 3. Acute mechanical fall with left femoral neck fracture ? Patient underwent surgical repair on 09/09/2024 4. Acute kidney injury ? Patient had been empirically started on vancomycin and Zosyn do suspect drug- induced nephritis. Offending medications discontinued. Monitoring response to therapy with daily BMP.With patient kidney function continues to worsen consult was placed to nephrology ? 09/14/2024; ordered kidney ultrasound to rule out obstructive uropathy. Patient creatinine 1.9 this a.m. repeat labs ordered in a.m. ? 09/15/2024; creatinine down to 1.8 ? 09/16/2024; no change in patient kidney function ? 09/17/2024; no change in kidney function ? 09/18/2024; creatinine down to 1.5 BUN however remains elevated at 60 5. Anemia ? Secondary to chronic disorder monitoring H&H and transfuse if patient becomes symptomatic or hemoglobin falls below 7 6. Acute on chronic congestive heart failure with preserved ejection fraction ? Echo obtained on 07/22/2024 demonstrated EF of 55% with PASP of 5035 mmHg. Patient did receive Lasix 7. Paroxysmal A-fib ? Patient is on on sotalol as well as systemic anticoagulation with apixaban.. Home medications continued 8. 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 Patient has significant complications including restrictive lung disease 9. Depression ? Patient is on venlafaxine, plan is to resume once off the event 10. Central sleep apnea ? Patient uses BiPAP at night will resume when patient is extubated 11 Chronic hypoxic and hypercapnic respiratory failure ? Patient is on continuous home oxygen during the day 12. BPH with lower urinary obstructive symptoms - Patient treated with tamsulosin, continued 13. Hypokalemia - Potassium this a.m. is 3.4 corrected per protocol, repeat labs ordered for monitoring unit. Also added magnesium level for a.m. ? 09/14/2024; patient potassium remains low additional replacement given repeat labs ordered for a.m. 14. Essential hypertension ? Patient blood pressure control remains labile we will continue with monitoring and adjust medications if warranted 15. DVT prophylaxis ? On apixaban 16. Hypernatremia ? Adjusted patient IV fluid, repeated BMP in a.m. Charges/Coding Visit Charges Inpatient E&M: 25637 Subs Hosp L2
[2024-09-18] MEDS: CHLORHEXIDINE GLUC 2% CLOTH 1 EACH TOWELETTE TOPICAL (08:03)
--- NOTE | 2024-09-18 10:00 | NURSING ---
This RN spoke with and patient about code statuses and the 3 different options to move forward with her husbands care. First option: Continue to stay intubated and place a trach and PEG. Second option: Remove the ETT and change code status to DNRCCA DNI. With BIPAP being OK. Third option: Remove the ETT and change code status to DNRCC. Consult hospice. Dr. Monsivais went over these options with patients and as well. Patient made it clear to this RN and Karen, that he does not want a trach or PEG. Patient shook his head yes to wanting hospice- However patient was unable to clearly communicate his choice between options 2 and 3. After speaking with patients siblings the Karen then made decision for option 2, extubate and change code status to DNRCCA DNI. This RN notified Dr. Monsivais
[2024-09-18] MEDS: busPIRone 5 MG Tablet 10 MG GT (10:16)
[2024-09-18] MEDS: APIXABAN 5 MG TABLET GT (10:16)
[2024-09-18] MEDS: Pantoprazole Sodium 40 MG in 0.9% Normal Saline (100mL MB+) 100 ML 330 MG IV (10:17)
--- NOTE | 2024-09-18 11:45 | PN.RENAL_ITS ---
Subjective Subjective events noted Objective Data Objective Data Vital Signs: Vital Signs Temp Pulse Resp BP Pulse Ox O2 Del Method O2 Flow Rate 98.7 F 62 22 H 150/75 H 96 Mechanical Ventilator 3 09/18/24 08:00 09/18/24 11:00 09/18/24 11:00 09/18/24 11:00 09/18/24 11:00 09/18/24 11:00 09/17/24 09:24 FiO2 30 09/18/24 11:00 Oxygen Flow Rate (L/min) 3 Oxygen Delivery Method Mechanical Ventilator Weight: 64 kg Body Mass Index (BMI) 24.2 Intake & Output: Intake and Output for Last 24 Hours 09/16/24 09/17/24 09/18/24 23:59 23:59 23:59 Intake Total 353.48 / 353.48 1274.27 / 1279.10 1168.67 / 1168.67 Output Total 2775 / 2775 750 / 750 350 / 350 Balance -2421.52 / -2421.52 524.27 / 529.10 818.67 / 818.67 Lab / Micro Data 09/18/24 04:22 09/18/24 04:22 Labs: Laboratory Results - last 24 hr 09/17/24 19:10: POC Glucose 89 09/18/24 01:18: POC Glucose 80 09/18/24 04:22: WBC 14.3 H, RBC 2.74 L, Hgb 8.3 L, Hct 25.6 L, MCV 93.4, MCH 30.3, MCHC 32.4, RDW Std Deviation 46.8 H, RDW Coeff of Larry 14.0, Plt Count 542 H, MPV 9.1, Immature Gran % (Auto) 1.000 H, Neut % (Auto) 85.3 H, Lymph % (Auto) 5.1 L, [place] % (Auto) 8.2, Eos % (Auto) 0.1, Baso % (Auto) 0.3, Absolute Neuts (auto) 12.2 H, Absolute Lymphs (auto) 0.73 L, Nucleated RBC % 0, Sodium 144, Potassium 4.1, Chloride 104, Carbon Dioxide 27.8, Anion Gap 12, BUN 60 H, C reatinine 1.51 H, Estim Creat Clear Calc 34.30 L, Est GFR (MDRD) Non-Af 47 L, B UN/Creatinine Ratio 40.0 H, Glucose 412 H, Calcium 8.1 09/18/24 05:57: POC Glucose 125 H Micro: Microbiology 09/17/24 13:35 Sputum, Induced/Lukens Gram Stain - Final 09/14/24 08:15 Blood Culture (Wb) - No Site/Description Given Blood Culture - Preliminary No growth in 48 hours. 09/14/24 08:15 Blood Culture (Wb) - Pic Blood Culture - Preliminary No growth in 48 hours. 09/14/24 08:15 Urine Catheter - Hendrix Urine Culture - Final Culture exhibits no growth. 09/14/24 08:28 Sputum, Tracheal Aspirate Gram Stain - Final 09/14/24 08:28 Sputum, Tracheal Aspirate Respiratory Culture - Final Presumptive C albicans 09/10/24 02:18 Blood Culture (Wb) - Left Forearm Blood Culture - Final No growth in 5 days. 09/14/24 08:40 Urine Catheter - Hendrix Legionella Antigen - Final 09/14/24 08:40 Urine Catheter - Hendrix Streptococcus pneumoniae Antigen (M - Final 09/14/24 08:28 Mucosa - Nose Coronavirus COVID-19 PCR - Final 09/14/24 08:28 Mucosa - Nose Influenza & RSV (PCR) - Final 09/10/24 02:20 Urine Catheter - Hendrix Urine Culture - Final Culture exhibits no growth. 09/10/24 02:49 Sputum, Expectorated/Coughed Gram Stain - Final 09/10/24 02:49 Sputum, Expectorated/Coughed Respiratory Culture - Final Presumptive C albicans 09/05/24 02:46 Blood Culture (Wb) - Anticubital Left Blood Culture - Final No growth in 5 days. 09/05/24 03:00 Blood Culture (Wb) - Left Hand Blood Culture - Final No growth in 5 days. 09/05/24 04:30 Sputum, Induced/Lukens Gram Stain - Final 09/05/24 04:30 Sputum, Induced/Lukens Respiratory Culture - Final Mixed normal respiratory rogelio. No Streptococcus pneumoniae, beta-hemolytic Streptococcus or Staphylococcus aureus isolated. 09/05/24 01:00 Urine, Clean Catch Urine Culture - Final Staphylococcus epidermidis ABG Data ABG results: ABG 09/17/24 09/17/24 12:46 15:16 Specimen Type ART ART Sample Site R Radial R Radial pH 7.08 L* 7.54 H Bicarbonate Actual 39.2 H 34.2 H Total CO2 43 36 Base Excess 9 H 12 H O2 Saturation 92 L 99 O2 % 30.0 50.0 ABG pCO2 130.9 H* 40.5 ABG pO2 94 101 H Stephane Test Positive Positive Respiration Rate 16 14 O2 Delivery Device BiPAP Adult Vent Vent Mode Not entered AC Tidal Volume 450.0 400.0 POC PEEP 8 5 Crit Call To/Read Back Yes Blood Gas Notified Whom brown Blood Gas Notified Time 12:47:35 Clinical Comments avaps Radiography Diagnostic Testing: Radiology Impression Chest X-Ray 09/17/24 13:25 IMPRESSION: Tubes and lines in position. There is cardiomegaly, similar to the prior. There is continued volume loss in the right lung, similar to the prior with a component of effusion not excluded. Reading Location: [facility] Physical Exam Narrative Alert and oriented, no apparent distress. 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 Found to have left hip fracture. Patient underwent surgical repair on September 09. Nephrology consulted in view of elevated creatinine. Patient has normal baseline creatinine trends, creatinine was less than 1 on admission. Creatinine began to rise on September 11 at 1.67. Creatinine peaked 2.18 on September 13. Creatinine has trended down, 1.6 today. Urine output is decent.
--- NOTE | 2024-09-18 11:49 | PCM.PN.BLA ---
Progress Note I met with the patient's at the bedside this morning and discussed overall goals of care. The patient was alert and interactive during this conversation, despite being on the ventilator. They eventually came to the agreement that he would want to proceed with extubation, but would not want to be reintubated. His CODE STATUS has been requested to be updated to DNR CCA without intubation. Accordingly, we will plan to extubate the patient to AVAPS therapy. If the patient does not do well from a respiratory perspective, the plan is to place a referral to hospice care services.
[2024-09-18 13:00] LABS: Bedside Glucose 97 mg/dL (74-106)
[2024-09-18] MEDS: Piperacil/Tazobactam 3.375 GM in 0.9% Normal Saline (50mL MB+) 50 ML IV ×2 (14:14→21:28)
--- NOTE | 2024-09-18 14:27 | CASEMGMT ---
Social Work- SW met with pt to offer support. Pt verbally processed decisions regarding care plan and emotions regarding pt health decline. Pt had questions regarding hospice. SW provided information. Pt has other questions and would like to meet with SW later to continue discussions. SW attempted to follow back up with pt ; pt not present in the room. SW remains available to follow. MARISELA Lara
--- NOTE | 2024-09-18 16:28 | CASEMGMT ---
Social Work- SW met with pt to offer support and answer questions regarding end of life arrangements. SW spent time empathetically and actively listening with pt . Pt appreciative of staff's support throughout all of pt visits to hospital. Pt emotionally stable; reports multiple family members present for support and states no other needs at this time. SW remains available to follow. MARISELA Lara
[2024-09-18 18:02] LABS: Bedside Glucose 113 mg/dL (74-106)
--- NOTE | 2024-09-18 21:16 | NURSING ---
pt alert, awake, able to ff simple commands. attempted to do dysphagia test, pt failed. Speech follows with pt care, kept NPO. Pt understandable. MD notified.
[2024-09-19] VITALS (25 sets, daily range): BP systolic 121–179; BP diastolic 69–95; PULSE 47–71; RESP 14–34; TEMP 36.2–36.8; O2SAT 90–100; BMI 25.0
[2024-09-19] MEDS: Dextrose 10%-Water 250 ML 999 ML IV (01:37)
[2024-09-19 01:38] LABS: Bedside Glucose 67 mg/dL (74-106)
[2024-09-19] MEDS: KCL 20MEQ in 0.45%NS 20 MEQ/1,000 ML IV.SOLN. 100 MEQ IV (02:25)
[2024-09-19 02:36] LABS: Bedside Glucose 77 mg/dL (74-106)
[2024-09-19 05:17] LABS: Absolute Neutrophil Count 7.4 X10^3/uL (2.0-7.7); Basophil# 0.06 X10^3/uL; Basophil% 0.7 % (0-1); Eosinophil# 0.04 X10^3/uL; Eosinophils% 0.4 % (0-5); Hematocrit 25.9 % (40-54); Hemoglobin 8.3 g/dL (13.0-16.5); Lymphocyte % 6.6 % (19-41); Mean Corpuscular Hgb 30.6 pg (27.0-32.0); Mean Corpuscular Volume 95.6 fL (80-94); Mean Platelet Vol. 9.1 fl (6.2-12.0); Monocyte# 0.89 X10^3/uL; Monocyte% 9.8 % (0-10); NRBC Flagged by Analyzer 0 % (0-5); Neutrophil # 7.41 X10^3/uL (2.7-7.7); Neutrophil % 81.4 % (47-70); POSITIVE DIFFERENTIAL YES; Platelet Count 472 K/mm3 (150-450); RBC Distribution Width CV 14.5 % (11.6-14.6); RBC Distribution Width SD 49.8 fl (35.1-43.9); Red Blood Count 2.71 M/mm3 (4.6-6.2); White Blood Count 9.1 K/mm3 (4.4-11.0)
[2024-09-19] MEDS: Piperacil/Tazobactam 3.375 GM in 0.9% Normal Saline (50mL MB+) 50 ML IV ×3 (05:17→22:54)
[2024-09-19] MEDS: Menthol/Lanolin/Calamine/Znox 113 GM Tube 1 APPLIC TOPICAL ×3 (05:24→22:51)
--- NOTE | 2024-09-19 05:40 | RAD_ITS ---
PROCEDURE: CHEST 1 VIEW (PORTABLE) 09/19/2024 REASON FOR EXAM: RESPIRATORY FAILURE TECHNIQUE: Frontal view of the chest. COMPARISON: 09/17/2024 FINDINGS: Endotracheal and nasogastric tubes no longer seen. Right PICC appears unchanged. Marked scoliosis with deformity of the chest again noted. Suggestion of some improved aeration at the right base although some patchy opacity is still suggested. The left lung appears clear. Difficult to exclude a small right pleural effusion. RAD/Chest 1 View (Portable) IMPRESSION: Endotracheal and nasogastric tubes no longer seen. Right PICC appears unchanged . Marked scoliosis with deformity of the chest again noted. Suggestion of some improved aeration at the right base although some patchy opa city is still suggested. The left lung appears clear. Difficult to exclude a small right pleural effusion. Reading Location: [id number]
[2024-09-19 05:45] LABS: Allen Test Positive; Base Excess 9 mmol/L (-2 to +2); Bicarbonate 34.6 mmol/L (22-26); Blood Gas Specimen Type ART; Mode Not entered; O2 Delivery Device BiPAP; PEEP 10; PO2 106 mmHG (75-100); RR 14; SITE R Radial; SO2 98 % (95-99); Total Carbon Dioxide 37 mmol/L; pCO2 61.9 mmHg (35-45); pH 7.36 (7.35-7.45)
[2024-09-19 06:06] LABS: Anion Gap 8 (5-15); BUN 43 mg/dL (4-19); BUN/Creat Ratio 35.1 RATIO (10-20); Calcium,Total 7.8 mg/dL (7.6-11.0); Chloride 105 mmol/L (98-108); Creatinine, Serum 1.23 mg/dL (0.70-1.20); EST Glomerular Filtration Rate 60 (>60); Estimated Creatinine Clearance 42.11 ml/min (50-250); Glucose 89 mg/dL (70-99); Potassium 5.8 mmol/L (3.3-5.1); Sodium Level 138 mmol/L (133-145)
[2024-09-19 06:20] LABS: Bedside Glucose 80 mg/dL (74-106)
--- NOTE | 2024-09-19 07:26 | PN.HOSP_ITS ---
Reason for Visit Reason for Visit: Diagnoses Acute and chronic respiratory failure with hypercapnia (09/05/24) Acute kidney failure, unspecified (09/05/24) Urinary tract infection, site not specified (09/05/24) Fracture of unspecified part of neck of left femur, initial encounter for closed fracture (09/05/24) shelter (current) use of anticoagulants (09/05/24) Subjective Subjective Patient was successfully weaned off the vent. Family wishes. CODE STATUS was changed to DNR CCA DO NOT INTUBATE. Patient has since tolerated intermittent BiPAP on and off. Much more interactive and coherent this morning. Objective Data Objective Data Vital Signs: Vital Signs Temp Pulse Resp BP Pulse Ox O2 Del Method O2 Flow Rate 97.2 F L 49 L 19 H 143/95 H 100 Bi-pap 4 09/19/24 05:00 09/19/24 07:00 09/19/24 07:00 09/19/24 07:00 09/19/24 07:00 09/19/24 07:00 09/18/24 21:22 FiO2 25 09/19/24 07:00 Oxygen Flow Rate (L/min) 4 Oxygen Delivery Method Bi-pap Weight: 66.3 kg Body Mass Index (BMI) 25.0 Intake & Output: Intake and Output for Last 24 Hours 09/17/24 09/18/24 09/19/24 23:59 23:59 23:59 Intake Total 1274.27 / 1279.10 2303.37 / 2303.37 1300 / 1300 Output Total 750 / 750 700 / 700 250 / 250 Balance 524.27 / 529.10 1603.37 / 1603.37 1050 / 1050 Lab / Micro Data 09/19/24 04:40 09/19/24 04:40 Labs: Laboratory Results - last 24 hr 09/18/24 12:41: POC Glucose 97 09/18/24 17:44: POC Glucose 113 H 09/19/24 01:18: POC Glucose 67 L 09/19/24 02:16: POC Glucose 77 09/19/24 04:40: WBC 9.1, RBC 2.71 L, Hgb 8.3 L, Hct 25.9 L, MCV 95.6 H, MCH 30.6, MCHC 32.0, RDW Std Deviation 49.8 H, RDW Coeff of Larry 14.5, Plt Count 472 H, MPV 9.1, Immature Gran % (Auto) 1.100 H, Neut % (Auto) 81.4 H, Lymph % (Auto) 6.6 L, [place] % (Auto) 9.8, Eos % (Auto) 0.4, Baso % (Auto) 0.7, Absolute Neuts (auto) 7.4, Absolute Lymphs (auto) 0.60 L, Nucleated RBC % 0, Sodium 138, P otassium 5.8 H, Chloride 105, Carbon Dioxide 26.0, Anion Gap 8, BUN 43 H, C reatinine 1.23 H, Estim Creat Clear Calc 42.11 L, Est GFR (MDRD) Non-Af 60, B UN/Creatinine Ratio 35.1 H, Glucose 89, Calcium 7.8 09/19/24 06:03: POC Glucose 80 Micro: Microbiology 09/17/24 13:35 Sputum, Induced/Lukens Gram Stain - Final 09/17/24 13:35 Sputum, Induced/Lukens Respiratory Culture - Preliminary Gram negative rishi 09/14/24 08:15 Blood Culture (Wb) - No Site/Description Given Blood Culture - Preliminary No growth in 48 hours. 09/14/24 08:15 Blood Culture (Wb) - Pic Blood Culture - Preliminary No growth in 48 hours. 09/14/24 08:15 Urine Catheter - Hendrix Urine Culture - Final Culture exhibits no growth. 09/14/24 08:28 Sputum, Tracheal Aspirate Gram Stain - Final 09/14/24 08:28 Sputum, Tracheal Aspirate Respiratory Culture - Final Presumptive C albicans 09/10/24 02:18 Blood Culture (Wb) - Left Forearm Blood Culture - Final No growth in 5 days. 09/14/24 08:40 Urine Catheter - Hendrix Legionella Antigen - Final 09/14/24 08:40 Urine Catheter - Hendrix Streptococcus pneumoniae Antigen (M - Final 09/14/24 08:28 Mucosa - Nose Coronavirus COVID-19 PCR - Final 09/14/24 08:28 Mucosa - Nose Influenza & RSV (PCR) - Final 09/10/24 02:20 Urine Catheter - Hendrix Urine Culture - Final Culture exhibits no growth. 09/10/24 02:49 Sputum, Expectorated/Coughed Gram Stain - Final 09/10/24 02:49 Sputum, Expectorated/Coughed Respiratory Culture - Final Presumptive C albicans 09/05/24 02:46 Blood Culture (Wb) - Anticubital Left Blood Culture - Final No growth in 5 days. 09/05/24 03:00 Blood Culture (Wb) - Left Hand Blood Culture - Final No growth in 5 days. 09/05/24 04:30 Sputum, Induced/Lukens Gram Stain - Final 09/05/24 04:30 Sputum, Induced/Lukens Respiratory Culture - Final Mixed normal respiratory rogelio. No Streptococcus pneumoniae, beta-hemolytic Streptococcus or Staphylococcus aureus isolated. 09/05/24 01:00 Urine, Clean Catch Urine Culture - Final Staphylococcus epidermidis ABG Data ABG results: ABG 09/19/24 05:41 Specimen Type ART Sample Site R Radial pH 7.36 Bicarbonate Actual 34.6 H Total CO2 37 Base Excess 9 H O2 Saturation 98 O2 % 35.0 ABG pCO2 61.9 H ABG pO2 106 H Stephane Test Positive Respiration Rate 14 O2 Delivery Device BiPAP Vent Mode Not entered Tidal Volume 400.0 POC PEEP 10 Radiography Diagnostic Testing: Radiology Impression Chest X-Ray 09/19/24 05:40 IMPRESSION: Endotracheal and nasogastric tubes no longer seen. Right PICC appears unchanged. Marked scoliosis with deformity of the chest again noted. Suggestion of some improved aeration at the right base although some patchy opacity is still suggested. The left lung appears clear. Difficult to exclude a small right pleural effusion. Reading Location: [facility] Physical Exam Narrative GENERAL: Interactive on BiPAP HEENT: ET tube in place EYES; Anicteric, Normal Conjunctiva NECK; supple, normal thyroid, RESPIRATORY: Diminished to auscultation CARDIOVASCULAR: Regular S1 S2, GI: soft, normoactive bowel sounds, : No Renal angle tenderness; EXTREMITIES: Edema involving both upper and lower extremity, MUSCULOSKELETAL: no muscle wasting NEURO: No lateralizing signs SKIN: No Rash PSYCH; flat affect Assessment & Plan Assessment/Plan (1) Closed fracture of neck of left femur: QUALIFIERS: Encounter type: initial encounter Qualified Code(s): S72.002A - Fracture of unspecified part of neck of left femur, initial encounter for closed fracture PLAN: Plan Patient is a 79-year-old gentleman with 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 Intubated in the ED due to metabolic encephalopathy secondary to hypercapnia. Patient subsequently underwent left femoral neck fracture repair on 09/09/2024 1. Acute on chronic hypoxic and hypercapnic respiratory failure ? Secondary to restrictive lung disease. Patient presented with altered mental status and elevated pCO2 patient was intubated and subsequently admitted to the intensive care unit. Vent management deferred to quality systems manager/critical care ? 09/14/2024; patient seen remains on the vent patient continues to spike fevers subsequently ordered urine culture and urinalysis with reflex culture, blood culture, checks x-ray, COVID assay as well as viral respiratory panel ? 09/15/2024;Patient was weaned off the vent the day prior subsequently placed on AVAPS and still remains on that attempt to wean patient off AVAPS so far unsuccessful ? 09/16/2024; patient has been weaned down to nasal cannula ? 09/18/2024;Patient was reintubated after he was found to be significantly hypercapnic once off the BiPAP. Case was discussed with Dr Garcia with pulmonology plan is have a family discussion regarding options including possible trach ? 09/19/2024 Patient was successfully weaned off the vent. Family wishes. CODE STATUS was changed to DNR CCA DO NOT INTUBATE. Patient has since tolerated intermittent BiPAP on and off. Much more interactive and coherent this morning. 2. Acute metabolic encephalopathy ? Secondary to above 09/14/2024; a complete assessment will be performed once patient is off the vent ? 09/15/2024; patient was essentially weaned off the vent the day prior his level of sensorium appears to be back to baseline ? 09/16/2024; nursing staff reports intermittent delirium ? 09/18/2024; patient back on the vent 3. Acute mechanical fall with left femoral neck fracture ? Patient underwent surgical repair on 09/09/2024 4. Acute kidney injury ? Patient had been empirically started on vancomycin and Zosyn do suspect drug- induced nephritis. Offending medications discontinued. Monitoring response to therapy with daily BMP.With patient kidney function continues to worsen consult was placed to nephrology ? 09/14/2024; ordered kidney ultrasound to rule out obstructive uropathy. Patient creatinine 1.9 this a.m. repeat labs ordered in a.m. ? 09/15/2024; creatinine down to 1.8 ? 09/16/2024; no change in patient kidney function ? 09/17/2024; no change in kidney function ? 09/18/2024; creatinine down to 1.5 BUN however remains elevated at 60 5. Anemia ? Secondary to chronic disorder monitoring H&H and transfuse if patient becomes symptomatic or hemoglobin falls below 7 6. Acute on chronic congestive heart failure with preserved ejection fraction ? Echo obtained on 07/22/2024 demonstrated EF of 55% with PASP of 5035 mmHg. Patient did receive Lasix 7. Paroxysmal A-fib ? Patient is on on sotalol as well as systemic anticoagulation with apixaban.. Home medications continued 8. 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 Patient has significant complications including restrictive lung disease 9. Depression ? Patient is on venlafaxine, plan is to resume once off the event 10. Central sleep apnea ? Patient uses BiPAP at night will resume when patient is extubated 11 Chronic hypoxic and hypercapnic respiratory failure ? Patient is on continuous home oxygen during the day 12. BPH with lower urinary obstructive symptoms - Patient treated with tamsulosin, continued 13. Hypokalemia - Potassium this a.m. is 3.4 corrected per protocol, repeat labs ordered for monitoring unit. Also added magnesium level for a.m. ? 09/14/2024; patient potassium remains low additional replacement given repeat labs ordered for a.m. 14. Essential hypertension ? Patient blood pressure control remains labile we will continue with monitoring and adjust medications if warranted 15. DVT prophylaxis ? On apixaban 16. Hypernatremia ? Adjusted patient IV fluid, repeated BMP in a.m. ? 09/19/2024; patient sodium levels down to 138 17. Hyperkalemia ? Secondary to potassium supplementation adjusted patient IV fluids and discontinued potassium supplementation. Will continue to monitor continuously until. Repeat potassium levels ordered in a.m. Charges/Coding Visit Charges Inpatient E&M: 48537 Subs Hosp L3
--- NOTE | 2024-09-19 08:57 | PCM.PN.TICU ---
Objective Data Objective Data Vital Signs: Vital Signs Last response Temperature 36.2 C L 09/19/24 05:00 Temperature Source Temporal 09/19/24 05:00 Pulse Rate 49 L 09/19/24 07:00 Pulse Strength Normal (2+) 09/18/24 20:16 Respiratory Rate 19 H 09/19/24 07:00 Respiratory Effort Non-Labored 09/19/24 04:00 Respiratory Depth Normal 09/19/24 04:00 Respiratory Pattern Normal 09/19/24 04:00 Blood Pressure 143/95 H 09/19/24 07:00 Blood Pressure Mean 111 09/19/24 07:00 Blood Pressure Source Monitor 09/19/24 07:00 Blood Pressure Position Semi-Fowlers 09/19/24 07:00 Blood Pressure Location Left Arm 09/19/24 07:00 Pulse Ox 100 09/19/24 07:00 Oxygen Delivery Method Bi-pap 09/19/24 07:00 Oxygen Flow Rate (L/min) 4 09/18/24 21:22 Fraction of Inspired Oxygen (FIO2) 25 09/19/24 07:00 EtCo2 - Document during CPR and with ROSC 35 09/09/24 16:27 I&O: I&O Last 24 Hours 09/18/24 09/18/24 09/19/24 11:59 23:59 11:59 Intake Total 1172.67 / 2303.37 1130.7 / 2303.37 1300 / 1300 Output Total 350 / 700 350 / 700 250 / 250 Balance 822.67 / 1603.37 780.7 / 1603.37 1050 / 1050 I&O: Total Stay 09/04/24 23:32 thru 09/19/24 06:00 Intake Total 85487.74 Output Total 94999 Balance 06915.74 Current Meds Ordered / Administered: Current meds ordered / Administered Generic Name Dose Route Start Last Admin Trade Name Freq PRN Reason Stop Dose Admin Acetaminophen 650 mg 09/05/24 13:55 09/13/24 20:19 Acetaminophen 650 Mg/20 Ml Udc GT 650 mg Q6H PRN PRN Administration Pain 1-10 or Fever Albuterol Sulfate 2.5 mg 09/05/24 05:29 09/14/24 10:59 Albuterol 2.5 Mg/3 Ml Vial.Neb. INHALATION 2.5 mg Q2H PRN PRN Administration SOB &/OR WHEEZING Albuterol/Ipratropium 3 ml 09/14/24 09:00 09/18/24 19:26 Ipratropium/Albuterol Sulfate 3 Ml Ampul.Neb INHALATION 09/19/24 23:59 3 ml Q6H.RT NIURKA Administration Apixaban 5 mg 09/17/24 22:00 09/18/24 21:43 Apixaban 5 Mg Tablet GT Not Given BID NIURKA Buspirone HCl 10 mg 09/17/24 22:00 09/18/24 21:43 Buspirone 5 Mg Tablet GT Not Given BID NIURKA Calamine/Phenol 1 applic 09/15/24 14:00 09/19/24 05:24 Menthol/Lanolin/Calamine/Znox 113 Gm Tube TOPICAL 1 applic TID NIURKA Administration Protocol Chlorhexidine Gluconate 1 each 09/06/24 10:00 09/18/24 08:03 Chlorhexidine Gluc 2% Cloth 1 Each Towelette TOPICAL 1 each DAILY NIURKA Administration Glucagon 1 mg 09/05/24 05: Glucagon 1 Mg/Ml Syringe IM X1 PRN HYPOGLYCEMIA Protocol Dextrose 250 mls @ 0 mls/hr 09/05/24 05:29 09/19/24 01:53 Dextrose 10%-Water IV Infused .Q0M PRN Infusion HYPOGLYCEMIA Protocol As Directed Sodium Chloride 250 mls @ 15 mls/hr 09/05/24 06:03 09/18/24 12:34 IV Infused .[id number] PRN Infusion Saline Flush Sodium Chloride 250 mls @ 15 mls/hr 09/05/24 06:03 IV .[id number] PRN Additional IVPB Infusion Potassium Chloride/Sodium Chloride 20 meq in 1,000 mls @ 100 mls/hr 09/17/24 09:30 09/19/24 02:25 Kcl 20meq In 0.45% Ns 1000ml IV 100 mls/hr .Q10H NIURKA Administration Dexmedetomidine HCl 400 mcg/ 100 mls @ 7.95 mls/hr 09/17/24 13:15 09/18/24 22:24 Sodium Chloride CONT INF Not Given .[id number] NIURKA Protocol 0.5 MCG/KG/HR Pantoprazole Sodium 40 mg/ 100 mls @ 330 mls/hr 09/18/24 10:00 09/18/24 10:39 Sodium Chloride IV Infused Q24 NIURKA Infusion Piperacillin Sod/Tazobactam 50 mls @ 12.5 mls/hr 09/18/24 14:00 09/19/24 05:17 Sod 3.375 gm/ Sodium Chloride IV 12.5 mls/hr Q8 NIURKA Administration Losartan Potassium 50 mg 09/05/24 22:00 09/06/24 21:04 Losartan Potassium 50 Mg Tablet GT Not Given QHS [facility] Protocol Polyethylene Glycol 8.5 gm 09/05/24 07:43 09/13/24 20:19 Polyethylene Glycol 3350 17 Gm Packet GT 8.5 gm Q48H PRN Administration constipation Prochlorperazine Edisylate 10 mg 09/16/24 18:23 09/16/24 18:39 Prochlorperazine 10 Mg/2 Ml Vial IV 10 mg Q6H PRN PRN Administration NAUSEA/VOMITING Sodium Chloride 10 - 40 ml 09/05/24 06:03 09/17/24 10:13 0.9% Saline Lock 10 Ml Syringe IV 10 ml UD PRN Administration SALINE FLUSH Sotalol HCl 80 mg 09/05/24 10:00 09/18/24 21:43 Sotalol Hydrochloride 80 Mg Tablet GT Not Given BID [facility] Protocol Tamsulosin HCl 0.4 mg 09/05/24 10:00 09/18/24 21:43 Tamsulosin Hcl 0.4 Mg Capsule PO Not Given BID [facility] Venlafaxine HCl 75 mg 09/05/24 10:00 09/18/24 08:04 Venlafaxine Xr 75 Mg Capsule PO Not Given DAILY [facility] Lab / Micro Data 09/19/24 04:40 09/19/24 04:40 Labs: Laboratory Results - last 24 hr 09/18/24 12:41: POC Glucose 97 09/18/24 17:44: POC Glucose 113 H 09/19/24 01:18: POC Glucose 67 L 09/19/24 02:16: POC Glucose 77 09/19/24 04:40: WBC 9.1, RBC 2.71 L, Hgb 8.3 L, Hct 25.9 L, MCV 95.6 H, MCH 30.6, MCHC 32.0, RDW Std Deviation 49.8 H, RDW Coeff of Larry 14.5, Plt Count 472 H, MPV 9.1, Immature Gran % (Auto) 1.100 H, Neut % (Auto) 81.4 H, Lymph % (Auto) 6.6 L, [place] % (Auto) 9.8, Eos % (Auto) 0.4, Baso % (Auto) 0.7, Absolute Neuts (auto) 7.4, Absolute Lymphs (auto) 0.60 L, Nucleated RBC % 0, Sodium 138, Potassium 5.8 H, Chloride 105, Carbon Dioxide 26.0, Anion Gap 8, BUN 43 H, Creatinine 1.23 H, Estim Creat Clear Calc 42.11 L, Est GFR (MDRD) Non-Af 60, BUN/Creatinine Ratio 35.1 H, Glucose 89, Calcium 7.8 09/19/24 06:03: POC Glucose 80 Micro: Microbiology 09/17/24 13:35 Sputum, Induced/Lukens Gram Stain - Final 09/17/24 13:35 Sputum, Induced/Lukens Respiratory Culture - Final Morganella morganii sp morgani ABG Data ABG results: ABG 09/19/24 05:41 Specimen Type ART Sample Site R Radial pH 7.36 Bicarbonate Actual 34.6 H Total CO2 37 Base Excess 9 H O2 Saturation 98 O2 % 35.0 ABG pCO2 61.9 H ABG pO2 106 H Stephane Test Positive Respiration Rate 14 O2 Delivery Device BiPAP Vent Mode Not entered Tidal Volume 400.0 POC PEEP 10 Imaging Radiology Impression Chest X-Ray 09/19/24 05:40 IMPRESSION: Endotracheal and nasogastric tubes no longer seen. Right PICC appears unchanged. Marked scoliosis with deformity of the chest again noted. Suggestion of some improved aeration at the right base although some patchy opacity is still suggested. The left lung appears clear. Difficult to exclude a small right pleural effusion. Reading Location: [id number] Assessment and Plan . Assessment and plan: Subjective: No acute events o/n. Extubated yesterday per pt/family wishes. Off BiPAP this AM, feels breathing somewhat better Physical Exam: Gen - NAD, well-developed HEENT - MMM. Sclera anicteric Resp - Diminished BS. Breathing nonlabored CV - RRR. No m/g/r Abd - Soft, NT, ND Ext - No c/c/e. Skin - No rashes? Neuro - Awake, answers questions appropriately I have reviewed the pertinent vital sign, laboratory, and imaging data. ASSESSMENT: # Acute on chronic hypoxic and hypercapneic respiratory failure - extubated 09/14, required reintubation 09/17 for worsening respiratory acidosis. Extubated again 09/18 per pt/family wishes and no plans for reintubation now # Restrictive lung disease ? 2/2 poliomyelitis and severe kyphoscoliosis # Possible UTI # Possible PNA - sputum Cx with morganella # Acute encephalopathy ? CT head without acute pathology # Acute L femoral neck fracture - s/p surgical repair 09/09 # TERRENCE # h/o Afib # h/o syncope # HTN # BPH # LAKISHA PLAN: -On 4L NC now, wean to keep sats > 90%. Encouraged strict compliance with NIV with all daytime naps and sleep. Can also use PRN throughout the day for increased WOB -Barium swallow pending this AM -Monitor for worsening hyperkalemia, was receiving IVF with potassium which is now stopped. If safe for swallowing medications based on barium swallow now can give lokelma as well. Follow K -Cont zosyn x 7 days for possible PNA. f/u Cx -Monitor Cr, UOP. Nephrology following -Cont duonebs -Replete electrolytes PRN FEN/GI: Swallow eval pending Proph DVT/GI: Eliquis Code status: DNR/DNI The entirety of this encounter was done via telemedicine using both audio and video. Consent was unable to be obtained for the telemedicine encounter due to the patient's mental status.
--- NOTE | 2024-09-19 09:27 | ST.MBS ---
Modified Barium Swallow Patient Information Study Date: 09/19/24 Study Time: 09:15 Direct Billable Minutes: 109 Total Minutes procedure & reportin Diagnosis: Dysphagia R13.10; Respiratory failure Referring Physician: Familia Michel Reason for Referral: Assess swallow function, assess risk for aspiration, and determine recommendations for least restrictive diet textures and compensatory strategies to improve safety of swallow. 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 The patient presented to [facility] ED 09/04/2024 after his heard him fall in the bedroom. He woke up shortly after hitting the floor, but had L hip pain and was unable to get up or ambulate. While waiting in the ED for an orthopedic consultation, his mental status and respiratory status change. He eventually required intubation secondary to hypercarbic encephalopathy. He was admitted to ICU for management for closed fracture of neck of left femur, UTI, and acute on chronic respiratory failure with hypercapnia. Pt underwent left hip hemiarthroplasty 09/09/2024. He was extubated 09/15/[address] consult prior to diet advancement. Evaluation not completed 09/15/2024 due to BiPAP dependence. 09/16/2024 BSE recommended NPO w/ ice chips and sips of water by tsp after oral care. MBSS was planned 09/17/2024; however, the patient had to be re-intubated in the afternoon. Pt extubated 09/18/2024 in the afternoon. STYRENE DEHYDRATION REACTOR OPERATOR re-assessed pt at bedside this morning and recommended resuming NPO w/ ice chips and sips of water by tsp after oral care w/ plan for MBSS this morning. Hx of dysphagia w/ MBSS revealing mild oropharyngeal dysphagia, esophageal dysphagia. Esophageal retention of pudding and thin liquids throughout the esophagus w/ retrograde flow of thin liquid barium through the UES to the pyriform sinuses. STYRENE DEHYDRATION REACTOR OPERATOR discontinued study due to concerns for reflux aspiration and/or regurgitation. The patient was recommended for Clear liquids and GI consult; however, pt and family declined inpatient GI consult. He was transferred to TCU for rehab. He was tolerating soft and bite size textures / thin liquids w/ use of strategies to decrease risk for aspiration and reflux aspiration (e.g. swallow hard and fast). He did have a GI consult initiated as an OP. He was started on daily PPI and participated in esophageal manometry 08/29/2024, which revealed EGJ outflow obstruction. No additional GI follow up had occurred prior to this hospitalization. Of note, prior to MBSS and GI work up the patient had a choking episode during which his had to provide the Heimlich maneuver. Current Diet Ordered: NPO - sips/chips by tsp after oral care Mental Status: Impaired (Difficulty following commands for small sips) Respiratory Status: Oxygenating on 4L/M nasal cannula (6L) Penetration-Aspiration Scale Penetration-Aspiration Scale: OBJECTIVE ASSESSMENT OF SWALLOW FUNCTION (QUANTITATIVE ? PER TRIAL): PENETRATION / ASPIRATION SCALE (ROBISON): 1 = does not enter airway 2 = enters airway/above vocal folds/ejected 3 = enters airway/above vocal folds/not ejected 4 = enters airway/contacts vocal folds/ejected 5 = enters airway/contacts vocal folds/not ejected 6 = enters airway/below vocal folds/ejected 7 = enters airway/below vocal folds/not ejected despite effort 8 = enters airway/below vocal folds/no effort VIDEOFLOROSCOPIC SCALE SCORE (ROBISON): Grade I = aspiration of material that has penetrated into the laryngeal vestibule, intact cough reflex Grade II = aspiration < 10 % of the bolus, intact cough reflex Grade III = aspiration of < 10 % of the bolus, reduced cough reflex or aspiration of > 10 % of the bolus, intact cough reflex Grade IV = aspiration of > 10 % of the bolus, reduced cough reflex Penetration-Aspiration Scale Score Thin Liquid via teaspoon: Result: 2= enter airway/above vocal folds/ejected Thin Liquid via teaspoon Trial 2: Result: 2= enter airway/above vocal folds/ejected Thin Liquid via sequential sips: cup: Result: 3= enters airways/above vocal folds/not ejected Simpson Thick Liquid via large single sip: cup: Result: 2= enter airway/above vocal folds/ejected Pudding via teaspoon: Result: 1= does not enter airway Comment: Esophageal screen - Retention of barium pudding in the lower esophagus w/ retrograde flow to the upper esophagus. Thin Liquid via sequential sips:straw: Result: 5= enters airways/contacts vocal folds/not ejected Comment: Esophageal screen - After liquid wash, continued barium retention in the middle and lower esophagus w/ retrograde flow. Thin Liquid via sequential sips: cup Trial 2: Result: 2= enter airway/above vocal folds/ejected Comment: Trace post prandial aspiration of thin barium, likely from previous trial w/ reflexive throat clearing. Thin Liquid via small single sip: cup Effortful swallow: Result: 2= enter airway/above vocal folds/ejected Oral Phase Labial Seal: Escape beyond mid-chin Tongue Control During Bolus Hold: Posterior escape of greater than half of bolus (large or sequential sips) Bolus Transport/Lingual Motion: Delayed initiation of tongue motion Oral Residue: Residue collection on oral structures Pharyngeal Phase Initiation of Pharyngeal Swallow: Bolus head in pyriforms (Liquids by straw spilled to the vocal folds prior to swallow onset.) Soft Palate Elevation: Trace column of contrast/air between soft palate and pharyngeal wall Laryngeal Elevation: Partial superior movement thyroid cart/partial apprx aryt-epig petiole Anterior Hyoid Excursion: Partial anterior movement Epiglottic Movement: Complete inversion Laryngeal Vestibule Closure at Height of Swallow: Incomplete; narrow column of air/contrast in laryngeal vestibule Pharyngeal Stripping Wave: Present - diminished Pharyngoesophageal Segment Opening: Complete distension and complete duration; no obstruction of flow Tongue Base Retraction: Narrow column of contrast between tongue base & post. pharyngeal wall Pharyngeal Residue: Collection of residue within or on pharyngeal structures Esophageal Phase Esophageal Clearance: Esophageal retention w/ retrograde flow below pharyngoesophageal seg. Diagnosis/Impression Diagnosis: Mild-moderate oropharyngeal dysphagia R13.12; Esophageal dysphagia R13.14 Impression: The oral phase is primarily marked by... -Decreased labial seal evident w/ 1 sip of thin liquids that spilled past mid-chin to the patient's chest. -Decreased bolus control w/ posterior loss of >1/2 the bolus to the pharynx w/ sequential sips. Thin barium spilled to the vocal folds prior to the swallow for the sip consumed via straw. -Did not assess mastication due to poor esophageal clearance of pudding. The pharyngeal phase is primarily marked by... -Delayed swallow onset. -Decreased pharyngeal contraction w/ mildly reduced TB retraction and pharyngeal stripping wave w/ trace-mild pharyngeal residues, most noteworthy during large and sequential sips. -Decreased airway closure due to decreased anterior hyoid excursion and laryngeal elevation w/ deep laryngeal penetration of thin liquids via straw to the vocal folds prior to swallow onset, which did not fully eject. Trace post prandial aspiration of thin barium observed during the next swallow. Pt did have reflexive throat clear in response to deep laryngeal penetration. Laryngeal penetration of liquids via sequential cup sips that did not fully eject, increasing risk for post prandial aspiration. Decreased bolus size, avoidance of straws, and hard swallow are most effective in reducing risk for aspiration. The esophageal phase is primarily marked by... -Retention of pudding in the lower esophagus w/ retrograde flow to the upper esophagus. Liquid wash was not very effective in clearing barium contrast. After liquid wash, continued barium contrast in the middle and lower esophagus w/ retrograde flow. Recommendations Diet: Thin Liquids (Clear Liquids) Comment: Ok for meds crushed in applesauce Compensatory Strategies: Small Sips (sips 1 at a time, HARD swallows), No Straws, Slow Rate and Sitting upright (During and 60min after meal) Supervision: 1:1 Direct Supervision Recommend Repeat Modified Barium Swallow: Yes (Repeat MBSS after EGD prior to diet advancement to solid textures) Need for Skilled Speech Therapy Services: Yes Comment: -Train the patient and family in strategies to decrease risk for aspiration and reflux aspiration. -Ongoing assessment of diet tolerance. -Train the patient in oropharyngeal exercise program (lingual resistance, Peggy, Sherry, effortful). Recommended Referrals: GI Consult Education Completed: 1. Described result of evaluation., 2. Pt understands evaluation & agrees with goals and treatment plan. and 7. Pt requires further education on strategies & risks. Status Active ST Patient: Active Contact Information [facility] Speech Therapy:: Deborah Fowler M.A. [facility]-STYRENE DEHYDRATION REACTOR OPERATOR? Speech-Language Pathologist?? [facility] [address] [place] [address]? [email or web address]?? [phone]
[2024-09-19] MEDS: CHLORHEXIDINE GLUC 2% CLOTH 1 EACH TOWELETTE TOPICAL (10:58)
[2024-09-19] MEDS: APIXABAN 5 MG TABLET GT ×2 (10:59→22:50)
[2024-09-19] MEDS: busPIRone 5 MG Tablet 10 MG GT ×2 (11:00→22:50)
--- NOTE | 2024-09-19 11:45 | PCM.PN.REN ---
Subjective Subjective no new events Objective Data Objective Data Vital Signs: Vital Signs Temp Pulse Resp BP Pulse Ox O2 Del Method O2 Flow Rate 97.2 F L 49 L 19 H 143/95 H 100 Bi-pap 4 09/19/24 05:00 09/19/24 07:00 09/19/24 07:00 09/19/24 07:00 09/19/24 07:00 09/19/24 07:00 09/18/24 21:22 FiO2 25 09/19/24 07:00 Oxygen Flow Rate (L/min) 4 Oxygen Delivery Method Bi-pap Weight: 66.3 kg Body Mass Index (BMI) 25.0 Intake & Output: Intake and Output for Last 24 Hours 09/17/24 09/18/24 09/19/24 23:59 23:59 23:59 Intake Total 1274.27 / 1279.10 2303.37 / 2303.37 2266.67 / 226.67 Output Total 750 / 750 700 / 700 250 / 250 Balance 524.27 / 529.10 1603.37 / 1603.37 / Lab / Micro Data 09/19/24 04:40 09/19/24 04:40 Labs: Laboratory Results - last 24 hr 09/18/24 12:41: POC Glucose 97 09/18/24 17:44: POC Glucose 113 H 09/19/24 01:18: POC Glucose 67 L 09/19/24 02:16: POC Glucose 77 09/19/24 04:40: WBC 9.1, RBC 2.71 L, Hgb 8.3 L, Hct 25.9 L, MCV 95.6 H, MCH 30.6, MCHC 32.0, RDW Std Deviation 49.8 H, RDW Coeff of Larry 14.5, Plt Count 472 H, MPV 9.1, Immature Gran % (Auto) 1.100 H, Neut % (Auto) 81.4 H, Lymph % (Auto) 6.6 L, Mcpherson % (Auto) 9.8, Eos % (Auto) 0.4, Baso % (Auto) 0.7, Absolute Neuts (auto) 7.4, Absolute Lymphs (auto) 0.60 L, Nucleated RBC % 0, Sodium 138, Potassium 5.8 H, Chloride 105, Carbon Dioxide 26.0, Anion Gap 8, BUN 43 H, Creatinine 1.23 H, Estim Creat Clear Calc 42.11 L, Est GFR (MDRD) Non-Af 60, BUN/Creatinine Ratio 35.1 H, Glucose 89, Calcium 7.8 09/19/24 06:03: POC Glucose 80 Micro: Microbiology 09/14/24 08:15 Blood Culture (Wb) - No Site/Description Given Blood Culture - Final No growth in 5 days. 09/14/24 08:15 Blood Culture (Wb) - Pic Blood Culture - Final No growth in 5 days. 09/17/24 13:35 Sputum, Induced/Lukens Gram Stain - Final 09/17/24 13:35 Sputum, Induced/Lukens Respiratory Culture - Final Morganella morganii sp morgani 09/14/24 08:15 Urine Catheter - Hendrix Urine Culture - Final Culture exhibits no growth. 09/14/24 08:28 Sputum, Tracheal Aspirate Gram Stain - Final 09/14/24 08:28 Sputum, Tracheal Aspirate Respiratory Culture - Final Presumptive C albicans 09/10/24 02:18 Blood Culture (Wb) - Left Forearm Blood Culture - Final No growth in 5 days. 09/14/24 08:40 Urine Catheter - Hendrix Legionella Antigen - Final 09/14/24 08:40 Urine Catheter - Hendrix Streptococcus pneumoniae Antigen (M - Final 09/14/24 08:28 Mucosa - Nose Coronavirus COVID-19 PCR - Final 09/14/24 08:28 Mucosa - Nose Influenza & RSV (PCR) - Final 09/10/24 02:20 Urine Catheter - Hendrix Urine Culture - Final Culture exhibits no growth. 09/10/24 02:49 Sputum, Expectorated/Coughed Gram Stain - Final 09/10/24 02:49 Sputum, Expectorated/Coughed Respiratory Culture - Final Presumptive C albicans 09/05/24 02:46 Blood Culture (Wb) - Anticubital Left Blood Culture - Final No growth in 5 days. 09/05/24 03:00 Blood Culture (Wb) - Left Hand Blood Culture - Final No growth in 5 days. 09/05/24 04:30 Sputum, Induced/Lukens Gram Stain - Final 09/05/24 04:30 Sputum, Induced/Lukens Respiratory Culture - Final Mixed normal respiratory rogelio. No Streptococcus pneumoniae, beta-hemolytic Streptococcus or Staphylococcus aureus isolated. 09/05/24 01:00 Urine, Clean Catch Urine Culture - Final Staphylococcus epidermidis ABG Data ABG results: ABG 09/19/24 05:41 Specimen Type ART Sample Site R Radial pH 7.36 Bicarbonate Actual 34.6 H Total CO2 37 Base Excess 9 H O2 Saturation 98 O2 % 35.0 ABG pCO2 61.9 H ABG pO2 106 H Stephane Test Positive Respiration Rate 14 O2 Delivery Device BiPAP Vent Mode Not entered Tidal Volume 400.0 POC PEEP 10 Radiography Diagnostic Testing: Radiology Impression Chest X-Ray 09/19/24 05:40 IMPRESSION: Endotracheal and nasogastric tubes no longer seen. Right PICC appears unchanged. Marked scoliosis with deformity of the chest again noted. Suggestion of some improved aeration at the right base although some patchy opacity is still suggested. The left lung appears clear. Difficult to exclude a small right pleural effusion. Reading Location: [facility] Physical Exam Narrative Alert and oriented, no apparent distress. 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 Found to have left hip fracture. Patient underwent surgical repair on September 09. Nephrology consulted in view of elevated creatinine. Patient has normal baseline creatinine trends, creatinine was less than 1 on admission. Creatinine began to rise on September 11 at 1.67. Creatinine peaked 2.18 on September 13. Creatinine has trended down K is high. losartan held. hold K supplements
[2024-09-19] MEDS: Pantoprazole Sodium 40 MG in 0.9% Normal Saline (100mL MB+) 100 ML 330 MG IV (12:11)
[2024-09-19 12:25] LABS: Bedside Glucose 93 mg/dL (74-106)
[2024-09-19 12:58] LABS: Anion Gap 10 (5-15); BUN 45 mg/dL (4-19); BUN/Creat Ratio 32.8 RATIO (10-20); Calcium,Total 8.9 mg/dL (7.6-11.0); Carbon Dioxide 31.3 mmol/L (21.0-32.0); Chloride 107 mmol/L (98-108); Creatinine, Serum 1.36 mg/dL (0.70-1.20); EST Glomerular Filtration Rate 54 (>60); Estimated Creatinine Clearance 38.09 ml/min (50-250); Glucose 124 mg/dL (70-99); Potassium 3.3 mmol/L (3.3-5.1); Sodium Level 148 mmol/L (133-145)
--- NOTE | 2024-09-19 13:24 | CASEMGMT ---
Social Work SW called , she is on her way here. SW then met w/ in the waiting room in regard to discharge plan. spoke about what has been going on the last few days, as yesterday pt was extubated and they thought pt may actually need hospice. However, pt is now on 4L O2. SW offered support to as she spoke of the events of the last few days. We then spoke about the discharge plan, and pt going to a group home facility. is in agreement w/this. SW provided to a list of group home facilities in network w/pt's insurance, in pt's preferred geographic area and complete w/quality and resource use data. Pt's explained pt was recently in TCU, and this would be their first choice. After that their choices are 2. [facility] and 3. [facility]. SW reviewed w/ the process, we will make referral and then the facility that accepts pt will go to insurance for a precert. states understanding. SW did let know that the days may not be fully covered since pt did just spend a month in TCU, encouraged her to call insurance. Upon further discussion expressed appreciation if SW would call insurance to find out benefits. SW explained will check on benefits and let her know. SW made referral to TCU, [facility] to let SW know if they can take pt. SW called pt's [employer] insurance. As per the field sales representative at [employer], SNF for pt is covered at 100%, unlimited days. SW let know this information, did again remind her that pt will need a precert however. states understanding. SW explained will let her know if SW hears back from [facility] today, otherwise will follow up Sunday. states understanding. SW will continue to follow. BETTY Cerda
[2024-09-19] MEDS: Ipratropium/Albuterol Sulfate 3 ML AMPUL.NEB INHALATION ×2 (13:47→19:06)
[2024-09-19 16:49] LABS: Bedside Glucose 120 mg/dL (74-106)
--- NOTE | 2024-09-19 17:47 | EX.PCM.CON.G ---
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 He was emergently intubated in the ED due to metabolic encephalopathy secondary to hypercapnia. Patient subsequently underwent left femoral neck fracture repair on 09/09/2024. I have been asked to see him due to esophageal dysphagia. He is mostly having solid food dysphagia and some odynophagia with liquids. He takes Eliquis 5 mg twice daily due to atrial fibrillation. [facility] Medical History 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 Wears glasses Cancer Depression Claustrophobia Anxiety Alcohol use Redness of skin Uses crutches Arthritis Bladder disease Back pain History of edema History of diverticulitis Post-polio syndrome Non-smoker BiPAP (biphasic positive airway pressure) dependence History of CHF (congestive heart failure) On home oxygen therapy History of pain when walking History of stress test History of echocardiogram Chronic respiratory failure with hypoxia and hypercapnia On mechanically assisted ventilation Post-poliomyelitis syndrome Acute on chronic respiratory failure with hypoxia and hypercapnia Hypertension Lumbar radicular pain Degenerative scoliosis Scoliosis Segmental dysfunction of thoracic region Home Medications ?Medication ?Instructions ?Recorded ?Last Taken ?Type tamsulosin 0.4 mg capsule 0.4 mg PO BID prostate 02/03/20 08/09/24 History venlafaxine 75 mg capsule,extended 75 mg PO DAILY MOOD 05/31/22 08/09/24 History release 24 hr cyanocobalamin (vitamin B-12) 500 500 mcg PO DAILY supplement 07/10/24 07/28/24 History mcg tablet losartan 50 mg tablet 50 mg PO QHS BP #0 tabs 07/28/24 Unknown Rx acetaminophen 500 mg tablet 1,000 mg (2 x 500 mg) PO QHS #0 08/18/24 Unknown Rx tabs fluticasone propionate 50 1 spray NASAL BID 30 days #16 grams 08/18/24 Unknown Rx mcg/actuation nasal spray,suspension omeprazole 40 mg capsule,delayed 40 mg PO QDAY 30 days #30 caps 08/21/24 Unknown Rx release polyethylene glycol 3350 17 8.5 g PO .COMPLEX PRN constipation 09/02/24 Unknown History gram/dose oral powder (Miralax) apixaban 5 mg tablet (Eliquis) 5 mg PO BID #180 tabs 09/04/24 Unknown Rx sotalol 80 mg tablet 80 mg PO BID #180 tabs 09/04/24 Unknown Rx Allergy/AdvReac Type Severity Reaction Status Date / Time metronidazole (From Flagyl) AdvReac Nausea/Vom/ Verified 09/04/24 23:42 Diarrhea Family History Father Myocardial infarction Heart disease Mother Shy-Drager syndrome Other CVA (cerebral vascular accident) Surgical History History of selective injection of anesthetic agent around lumbar nerve root Hx of lithotripsy History of cardiac catheterization Hx of cystoscopy H/O adenoidectomy History of uvulectomy Hip fracture, right History of open reduction and internal fixation (ORIF) procedure Right tibial fracture H/O spinal fusion Social History household members: spouse housing: house Smoking Status: Never smoker substance use type: does not use ROS Constitutional Constitutional: Denies fatigue, fever(s), poor appetite, weight gain or weight loss Gastrointestinal Gastrointestinal: Denies belching, bloating, change in bowel habits, change in stool character, chewing difficulty, coffee ground emesis, constipation, cramping, diarrhea, dyspepsia, dysphagia, early satiety, excessive flatus, fecal incontinence, heartburn, hematemesis, hematochezia, hemorrhoids, loose stools, melena, nausea, odynophagia, rectal bleeding, tenesmus, vomiting or weight changes Physical Exam Const alert, oriented x3, no apparent distress and healthy appearing General Appearance: cooperative GI normal to inspection, nondistended, normoactive bowel sounds, soft to palpation, non-tender and non-distended Percussion: normal to percussion Rectal Exam: deferred Lab / Micro Data 09/19/24 04:40 09/19/24 12:10 Labs: Laboratory Results - last 24 hr 09/18/24 17:44: POC Glucose 113 H 09/19/24 01:18: POC Glucose 67 L 09/19/24 02:16: POC Glucose 77 09/19/24 04:40: WBC 9.1, RBC 2.71 L, Hgb 8.3 L, Hct 25.9 L, MCV 95.6 H, MCH 30.6, MCHC 32.0, RDW Std Deviation 49.8 H, RDW Coeff of Larry 14.5, Plt Count 472 H, MPV 9.1, Immature Gran % (Auto) 1.100 H, Neut % (Auto) 81.4 H, Lymph % (Auto) 6.6 L, Vernon % (Auto) 9.8, Eos % (Auto) 0.4, Baso % (Auto) 0.7, Absolute Neuts (auto) 7.4, Absolute Lymphs (auto) 0.60 L, Nucleated RBC % 0, Sodium 138, Potassium 5.8 H, Chloride 105, Carbon Dioxide 26.0, Anion Gap 8, BUN 43 H, Creatinine 1.23 H, Estim Creat Clear Calc 42.11 L, Est GFR (MDRD) Non-Af 60, BUN/Creatinine Ratio 35.1 H, Glucose 89, Calcium 7.8 09/19/24 06:03: POC Glucose 80 09/19/24 12:02: POC Glucose 93 09/19/24 12:10: Sodium 148 H, Potassium 3.3, Chloride 107, Carbon Dioxide 31.3, Anion Gap 10, BUN 45 H, Creatinine 1.36 H, Estim Creat Clear Calc 38.09 L, Est GFR (MDRD) Non-Af 54 L, BUN/Creatinine Ratio 32.8 H, Glucose 124 H, Calcium 8.9 09/19/24 16:31: POC Glucose 120 H Micro: Microbiology 09/14/24 08:15 Blood Culture (Wb) - No Site/Description Given Blood Culture - Final No growth in 5 days. 09/14/24 08:15 Blood Culture (Wb) - Pic Blood Culture - Final No growth in 5 days. 09/17/24 13:35 Sputum, Induced/Lukens Gram Stain - Final 09/17/24 13:35 Sputum, Induced/Lukens Respiratory Culture - Final Morganella morganii sp morgani ABG Data ABG results: ABG 09/19/24 05:41 Specimen Type ART Sample Site R Radial pH 7.36 Bicarbonate Actual 34.6 H Total CO2 37 Base Excess 9 H O2 Saturation 98 O2 % 35.0 ABG pCO2 61.9 H ABG pO2 106 H Stephane Test Positive Respiration Rate 14 O2 Delivery Device BiPAP Vent Mode Not entered Tidal Volume 400.0 POC PEEP 10 Imaging Radiology Impression Chest X-Ray 09/19/24 05:40 IMPRESSION: Endotracheal and nasogastric tubes no longer seen. Right PICC appears unchanged. Marked scoliosis with deformity of the chest again noted. Suggestion of some improved aeration at the right base although some patchy opacity is still suggested. The left lung appears clear. Difficult to exclude a small right pleural effusion. Reading Location: [id number] Assessment & Plan Assessment/Plan (1) TERRENCE (acute kidney injury): (2) Closed fracture of neck of left femur: QUALIFIERS: Encounter type: initial encounter Qualified Code(s): S72.002A - Fracture of unspecified part of neck of left femur, initial encounter for closed fracture PLAN: Plan This is a 79-year-old male with past medical history significant for A-fib, hypertension, BPH, depression, 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 Found to have left hip fracture. Patient underwent surgical repair on September 09. He is currently having esophageal dysphagia. Differential diagnosis for esophageal dysphagia does include Raven esophagitis, or esophagitis, esophageal stricture. He should undergo an upper endoscopy divide upper GI tract because he needs to be on antiarrhythmics and anticoagulants. Charges/Coding Visit Charges Inpatient E&M: 24079 Init Hosp L3
[2024-09-19] MEDS: oxyCODONE 5 MG Tablet PO (18:29)
[2024-09-19] MEDS: Sotalol Hydrochloride 80 MG Tablet GT (22:52)
[2024-09-20] VITALS (17 sets, daily range): BP systolic 140–169; BP diastolic 68–100; PULSE 42–76; RESP 14–34; TEMP 36.4–37.1; O2SAT 94–100; BMI 23.5
[2024-09-20 03:54] LABS: Absolute Lymphocyte Count 0.62 X10^3/uL (0.83-4.51); Absolute Neutrophil Count 8.4 X10^3/uL (2.0-7.7); Eosinophil# 0.11 X10^3/uL; Eosinophils% 1.1 % (0-5); Hematocrit 29.8 % (40-54); Hemoglobin 9.4 g/dL (13.0-16.5); Lymphocyte # 0.62 X10^3/ul (0.83-4.51); Mean Corp Hgb Conc 31.5 g/dL (32-36); Mean Corpuscular Hgb 30.4 pg (27.0-32.0); Mean Corpuscular Volume 96.4 fL (80-94); Mean Platelet Vol. 9.1 fl (6.2-12.0); Monocyte# 0.92 X10^3/uL; Monocyte% 8.9 % (0-10); NRBC Flagged by Analyzer 0 % (0-5); Neutrophil # 8.43 X10^3/uL (2.7-7.7); Platelet Count 403 K/mm3 (150-450); RBC Distribution Width CV 14.1 % (11.6-14.6); RBC Distribution Width SD 49.9 fl (35.1-43.9); Red Blood Count 3.09 M/mm3 (4.6-6.2); White Blood Count 10.3 K/mm3 (4.4-11.0)
[2024-09-20 04:42] LABS: Anion Gap 13 (5-15); BUN 36 mg/dL (4-19); BUN/Creat Ratio 27.8 RATIO (10-20); Calcium,Total 9.3 mg/dL (7.6-11.0); Carbon Dioxide 29.8 mmol/L (21.0-32.0); Chloride 114 mmol/L (98-108); Creatinine, Serum 1.28 mg/dL (0.70-1.20); EST Glomerular Filtration Rate 58 (>60); Estimated Creatinine Clearance 40.47 ml/min (50-250); Glucose 106 mg/dL (70-99); Potassium 3.4 mmol/L (3.3-5.1); Sodium Level 157 mmol/L (133-145)
[2024-09-20] MEDS: Piperacil/Tazobactam 3.375 GM in 0.9% Normal Saline (50mL MB+) 50 ML IV (05:15)
[2024-09-20] MEDS: Menthol/Lanolin/Calamine/Znox 113 GM Tube 1 APPLIC TOPICAL ×3 (05:16→21:43)
[2024-09-20 06:40] LABS: Bedside Glucose 100 mg/dL (74-106)
[2024-09-20 06:42] LABS: Bedside Glucose 96 mg/dL (74-106)
--- NOTE | 2024-09-20 07:07 | PCM.PN.HOSP ---
Reason for Visit Reason for Visit: Diagnoses Acute and chronic respiratory failure with hypercapnia (09/05/24) Acute kidney failure, unspecified (09/05/24) Urinary tract infection, site not specified (09/05/24) Fracture of unspecified part of neck of left femur, initial encounter for closed fracture (09/05/24) jail (current) use of anticoagulants (09/05/24) Subjective Subjective Patient seen remains on supplemental oxygen. His level of sensorium and interaction continues to improve Objective Data Objective Data Vital Signs: Vital Signs Temp Pulse Resp BP Pulse Ox O2 Del Method O2 Flow Rate 98.6 F 62 18 153/92 H 96 Nasal Cannula 2 09/20/24 04:39 09/20/24 04:39 09/20/24 04:39 09/20/24 04:39 09/20/24 04:39 09/20/24 04:39 09/20/24 04:39 FiO2 35 09/20/24 03:00 Oxygen Flow Rate (L/min) 2 Oxygen Delivery Method Nasal Cannula Weight: 62.1 kg Body Mass Index (BMI) 23.5 Intake & Output: Intake and Output for Last 24 Hours 09/18/24 09/19/24 09/20/24 23:59 23:59 23:59 Intake Total 2303.37 / 2303.37 2416.67 / 2416.67 50 / 50 Output Total 700 / 700 900 / 900 350 / 350 Balance 1603.37 / 1603.37 1516.67 / 1516.67 -300 / -300 Lab / Micro Data 09/20/24 03:45 09/20/24 03:45 Labs: Laboratory Results - last 24 hr 09/19/24 12:02: POC Glucose 93 09/19/24 12:10: Sodium 148 H, Potassium 3.3, Chloride 107, Carbon Dioxide 31.3, Anion Gap 10, BUN 45 H, Creatinine 1.36 H, Estim Creat Clear Calc 38.09 L, Est GFR (MDRD) Non-Af 54 L, BUN/Creatinine Ratio 32.8 H, Glucose 124 H, Calcium 8.9 09/19/24 16:31: POC Glucose 120 H 09/19/24 23:37: POC Glucose 96 09/20/24 03:45: WBC 10.3, RBC 3.09 L, Hgb 9.4 L, Hct 29.8 L, MCV 96.4 H, MCH 30.4, MCHC 31.5 L, RDW Std Deviation 49.9 H, RDW Coeff of Larry 14.1, Plt Count 403, MPV 9.1, Immature Gran % (Auto) 1.000 H, Neut % (Auto) 82.0 H, Lymph % (Auto) 6.0 L, [place] % (Auto) 8.9, Eos % (Auto) 1.1, Baso % (Auto) 1.0, Absolute Neuts (auto) 8.4 H, Absolute Lymphs (auto) 0.62 L, Nucleated RBC % 0, Sodium 157 H, Potassium 3.4, Chloride 114 H, Carbon Dioxide 29.8, Anion Gap 13, BUN 36 H, Creatinine 1.28 H, Estim Creat Clear Calc 40.47 L, Est GFR (MDRD) Non-Af 58 L, BUN/Creatinine Ratio 27.8 H, Glucose 106 H, Calcium 9.3 09/20/24 06:22: POC Glucose 100 Micro: Microbiology 09/14/24 08:15 Blood Culture (Wb) - No Site/Description Given Blood Culture - Final No growth in 5 days. 09/14/24 08:15 Blood Culture (Wb) - Pic Blood Culture - Final No growth in 5 days. 09/17/24 13:35 Sputum, Induced/Lukens Gram Stain - Final 09/17/24 13:35 Sputum, Induced/Lukens Respiratory Culture - Final Morganella morganii sp morgani 09/14/24 08:15 Urine Catheter - Hendrix Urine Culture - Final Culture exhibits no growth. 09/14/24 08:28 Sputum, Tracheal Aspirate Gram Stain - Final 09/14/24 08:28 Sputum, Tracheal Aspirate Respiratory Culture - Final Presumptive C albicans 09/10/24 02:18 Blood Culture (Wb) - Left Forearm Blood Culture - Final No growth in 5 days. 09/14/24 08:40 Urine Catheter - Hendrix Legionella Antigen - Final 09/14/24 08:40 Urine Catheter - Hendrix Streptococcus pneumoniae Antigen (M - Final 09/14/24 08:28 Mucosa - Nose Coronavirus COVID-19 PCR - Final 09/14/24 08:28 Mucosa - Nose Influenza & RSV (PCR) - Final 09/10/24 02:20 Urine Catheter - Hendrix Urine Culture - Final Culture exhibits no growth. 09/10/24 02:49 Sputum, Expectorated/Coughed Gram Stain - Final 09/10/24 02:49 Sputum, Expectorated/Coughed Respiratory Culture - Final Presumptive C albicans 09/05/24 02:46 Blood Culture (Wb) - Anticubital Left Blood Culture - Final No growth in 5 days. 09/05/24 03:00 Blood Culture (Wb) - Left Hand Blood Culture - Final No growth in 5 days. 09/05/24 04:30 Sputum, Induced/Lukens Gram Stain - Final 09/05/24 04:30 Sputum, Induced/Lukens Respiratory Culture - Final Mixed normal respiratory rogelio. No Streptococcus pneumoniae, beta-hemolytic Streptococcus or Staphylococcus aureus isolated. 09/05/24 01:00 Urine, Clean Catch Urine Culture - Final Staphylococcus epidermidis Physical Exam Narrative GENERAL: Patient on nasal cannula HEENT: ET tube in place EYES; Anicteric, Normal Conjunctiva NECK; supple, normal thyroid, RESPIRATORY: Diminished to auscultation CARDIOVASCULAR: Regular S1 S2, GI: soft, normoactive bowel sounds, : No Renal angle tenderness; EXTREMITIES: Edema involving both upper and lower extremity, MUSCULOSKELETAL: no muscle wasting NEURO: No lateralizing signs SKIN: No Rash PSYCH; flat affect Assessment & Plan Assessment/Plan (1) Closed fracture of neck of left femur: QUALIFIERS: Encounter type: initial encounter Qualified Code(s): S72.002A - Fracture of unspecified part of neck of left femur, initial encounter for closed fracture PLAN: Plan Patient is a 79-year-old gentleman with 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 Intubated in the ED due to metabolic encephalopathy secondary to hypercapnia. Patient subsequently underwent left femoral neck fracture repair on 09/09/2024 1. Acute on chronic hypoxic and hypercapnic respiratory failure ? Secondary to restrictive lung disease. Patient presented with altered mental status and elevated pCO2 patient was intubated and subsequently admitted to the intensive care unit. Vent management deferred to manager employee relations/critical care ? 09/14/2024; patient seen remains on the vent patient continues to spike fevers subsequently ordered urine culture and urinalysis with reflex culture, blood culture, checks x-ray, COVID assay as well as viral respiratory panel ? 09/15/2024;Patient was weaned off the vent the day prior subsequently placed on AVAPS and still remains on that attempt to wean patient off AVAPS so far unsuccessful ? 09/16/2024; patient has been weaned down to nasal cannula ? 09/18/2024;Patient was reintubated after he was found to be significantly hypercapnic once off the BiPAP. Case was discussed with Dr Garcia with pulmonology plan is have a family discussion regarding options including possible trach ? 09/19/2024 Patient was successfully weaned off the vent. Family wishes. CODE STATUS was changed to DNR CCA DO NOT INTUBATE. Patient has since tolerated intermittent BiPAP on and off. Much more interactive and coherent this morning. ? 09/20/2024; patient remains on supplemental oxygen plan is to transfer from the ICU to the progressive care unit 2. Acute metabolic encephalopathy ? Secondary to above 09/14/2024; a complete assessment will be performed once patient is off the vent ? 09/15/2024; patient was essentially weaned off the vent the day prior his level of sensorium appears to be back to baseline ? 09/16/2024; nursing staff reports intermittent delirium ? 09/18/2024; patient back on the vent ? 09/19/2024; patient currently on nasal cannula much more interactive 3. Acute mechanical fall with left femoral neck fracture ? Patient underwent surgical repair on 09/09/2024 4. Acute kidney injury ? Patient had been empirically started on vancomycin and Zosyn do suspect drug-induced nephritis. Offending medications discontinued. Monitoring response to therapy with daily BMP.With patient kidney function continues to worsen consult was placed to nephrology ? 09/14/2024; ordered kidney ultrasound to rule out obstructive uropathy. Patient creatinine 1.9 this a.m. repeat labs ordered in a.m. ? 09/15/2024; creatinine down to 1.8 ? 09/16/2024; no change in patient kidney function ? 09/17/2024; no change in kidney function ? 09/18/2024; creatinine down to 1.5 BUN however remains elevated at 60 5. Anemia ? Secondary to chronic disorder monitoring H&H and transfuse if patient becomes symptomatic or hemoglobin falls below 7 6. Acute on chronic congestive heart failure with preserved ejection fraction ? Echo obtained on 07/22/2024 demonstrated EF of 55% with PASP of 5035 mmHg. Patient did receive Lasix 7. Paroxysmal A-fib ? Patient is on on sotalol as well as systemic anticoagulation with apixaban.. Home medications continued 8. 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 Patient has significant complications including restrictive lung disease 9. Depression ? Patient is on venlafaxine, plan is to resume once off the event 10. Central sleep apnea ? Patient uses BiPAP at night will resume when patient is extubated 11 Chronic hypoxic and hypercapnic respiratory failure ? Patient is on continuous home oxygen during the day 12. BPH with lower urinary obstructive symptoms - Patient treated with tamsulosin, continued 13. Hypokalemia - Potassium this a.m. is 3.4 corrected per protocol, repeat labs ordered for monitoring unit. Also added magnesium level for a.m. ? 09/14/2024; patient potassium remains low additional replacement given repeat labs ordered for a.m. 14. Essential hypertension ? Patient blood pressure control remains labile we will continue with monitoring and adjust medications if warranted 15. DVT prophylaxis ? On apixaban 16. Hypernatremia ? Adjusted patient IV fluid, repeated BMP in a.m. ? 09/19/2024; patient sodium levels down to 138 ? 09/20/2024; patient sodium levels up to 157 on D5W and ordered BMP every 4 17. Hyperkalemia ? Secondary to potassium supplementation adjusted patient IV fluids and discontinued potassium supplementation. Will continue to monitor continuously until. Repeat potassium levels ordered in a.m. ? 09/20/2024; hyperkalemia resolved Charges/Coding Visit Charges Inpatient E&M: 83766 Subs Hosp L2
[2024-09-20] MEDS: Dextrose 5%-Water (1000mL Bag) 1,000 ML 100 ML IV ×2 (08:36→22:16)
[2024-09-20] MEDS: APIXABAN 5 MG TABLET PO ×2 (11:06→21:44)
[2024-09-20] MEDS: busPIRone 5 MG Tablet 10 MG PO ×2 (11:07→21:44)
[2024-09-20] MEDS: Pantoprazole Sodium 40 MG in 0.9% Normal Saline (100mL MB+) 100 ML 330 MG IV (11:29)
[2024-09-20] MEDS: Meropenem 1 GM in 0.9% Normal Saline (100mL MB+) 100 ML IV ×2 (12:31→21:42)
--- NOTE | 2024-09-20 13:01 | PCM.PN.TICU ---
Objective Data Objective Data Vital Signs: Vital Signs Last response Temperature 36.8 C 09/20/24 09:45 Temperature Source Oral 09/20/24 09:45 Pulse Rate 50 L 09/20/24 12:00 Pulse Strength Normal (2+) 09/20/24 09:21 Respiratory Rate 22 H 09/20/24 12:00 Respiratory Effort Normal, Non-Labored 09/20/24 02:45 Respiratory Depth Normal 09/20/24 02:45 Respiratory Pattern Normal 09/20/24 07:15 Blood Pressure 158/84 H 09/20/24 11:05 Blood Pressure Mean 108 09/20/24 11:05 Blood Pressure Source Monitor 09/20/24 11:05 Blood Pressure Position Semi-Fowlers 09/20/24 11:05 Blood Pressure Location Right Arm 09/20/24 11:05 Pulse Ox 98 09/20/24 12:00 Oxygen Delivery Method Bi-pap 09/20/24 11:05 Oxygen Flow Rate (L/min) 3 09/20/24 09:45 Fraction of Inspired Oxygen (FIO2) 28 09/20/24 12:00 EtCo2 - Document during CPR and with ROSC 35 09/09/24 16:27 I&O: I&O Last 24 Hours 09/19/24 09/20/24 09/20/24 23:59 11:59 23:59 Intake Total 150 / 2416.67 91.04 / 591.04 500 / 591.04 Output Total 650 / 900 350 / 350 Balance -500 / 1516.67 -258.96 / 241.04 500 / 241.04 I&O: Total Stay 09/04/24 23:32 thru 09/20/24 12:36 Intake Total 36373.45 Output Total 89571 Balance 69642.45 Current Meds Ordered / Administered: Current meds ordered / Administered Generic Name Dose Route Start Last Admin Trade Name Freq PRN Reason Stop Dose Admin Acetaminophen 650 mg 09/20/24 10:06 Acetaminophen 650 Mg/20 Ml Udc PO Q6H PRN PRN Pain 1-10 or Fever Albuterol Sulfate 2.5 mg 09/05/24 05:29 09/14/24 10:59 Albuterol 2.5 Mg/3 Ml Vial.Neb. INHALATION 2.5 mg Q2H PRN PRN Administration SOB &/OR WHEEZING Apixaban 5 mg 09/20/24 22:00 09/20/24 11:06 Apixaban 5 Mg Tablet PO 5 mg BID NIURKA Administration Buspirone HCl 10 mg 09/20/24 22:00 09/20/24 11:07 Buspirone 5 Mg Tablet PO 10 mg BID NIURKA Administration Calamine/Phenol 1 applic 09/15/24 14:00 09/20/24 05:16 Menthol/Lanolin/Calamine/Znox 113 Gm Tube TOPICAL 1 applic TID NIURKA Administration Protocol Chlorhexidine Gluconate 1 each 09/06/24 10:00 09/20/24 09:48 Chlorhexidine Gluc 2% Cloth 1 Each [place] TOPICAL Not Given DAILY NIURKA Glucagon 1 mg 09/05/24 05:29 Glucagon 1 Mg/Ml Syringe IM X1 PRN HYPOGLYCEMIA Protocol Dextrose 250 mls @ 0 mls/hr 09/05/24 05:29 09/19/24 01:53 Dextrose 10%-Water IV Infused .Q0M PRN Infusion HYPOGLYCEMIA Protocol As Directed Sodium Chloride 250 mls @ 15 mls/hr 09/05/24 06:03 09/18/24 12:34 IV Infused .[id number] PRN Infusion Saline Flush Sodium Chloride 250 mls @ 15 mls/hr 09/05/24 06:03 IV .[id number] PRN Additional IVPB Infusion Dexmedetomidine HCl 400 mcg/ 100 mls @ 7.95 mls/hr 09/17/24 13:15 09/20/24 09:03 Sodium Chloride CONT INF Not Given .[id number] NIURKA Protocol 0.5 MCG/KG/HR Pantoprazole Sodium 40 mg/ 100 mls @ 330 mls/hr 09/18/24 10:00 09/20/24 12:36 Sodium Chloride IV Infused Q24 NIURKA Infusion Dextrose 1,000 mls @ 100 mls/hr 09/20/24 08:10 09/20/24 12:36 IV 0 mls/hr .Q10H NIURKA Infusion Meropenem 1 gm/ Sodium 120 mls @ 33 mls/hr 09/20/24 10:00 09/20/24 12:31 Chloride IV 33 mls/hr Q12 NIURKA Administration Losartan Potassium 50 mg 09/20/24 22:00 Losartan Potassium 50 Mg Tablet PO QHS NIURKA Protocol Oxycodone HCl 5 mg 09/19/24 17:58 09/19/24 18:29 Oxycodone 5 Mg Tablet PO 5 mg Q6H PRN PRN Administration Pain Score 1-10 Polyethylene Glycol 8.5 gm 09/20/24 10:06 Polyethylene Glycol 3350 17 Gm Packet PO Q48H PRN constipation Prochlorperazine Edisylate 10 mg 09/16/24 18:23 09/16/24 18:39 Prochlorperazine 10 Mg/2 Ml Vial IV 10 mg Q6H PRN PRN Administration NAUSEA/VOMITING Sodium Chloride 10 - 40 ml 09/05/24 06:03 09/17/24 10:13 0.9% Saline Lock 10 Ml Syringe IV 10 ml UD PRN Administration SALINE FLUSH Sotalol HCl 80 mg 09/20/24 22:00 Sotalol Hydrochloride 80 Mg Tablet PO BID [facility] Protocol Tamsulosin HCl 0.4 mg 09/05/24 10:00 09/20/24 09:48 Tamsulosin Hcl 0.4 Mg Capsule PO Not Given BID [facility] Venlafaxine HCl 75 mg 09/05/24 10:00 09/20/24 09:49 Venlafaxine Xr 75 Mg Capsule PO Not Given DAILY [facility] Lab / Micro Data 09/20/24 03:45 09/20/24 12:10 Labs: Laboratory Results - last 24 hr 09/19/24 16:31: POC Glucose 120 H 09/19/24 23:37: POC Glucose 96 09/20/24 03:45: WBC 10.3, RBC 3.09 L, Hgb 9.4 L, Hct 29.8 L, MCV 96.4 H, MCH 30.4, MCHC 31.5 L, RDW Std Deviation 49.9 H, RDW Coeff of Larry 14.1, Plt Count 403, MPV 9.1, Immature Gran % (Auto) 1.000 H, Neut % (Auto) 82.0 H, Lymph % (Auto) 6.0 L, [place] % (Auto) 8.9, Eos % (Auto) 1.1, Baso % (Auto) 1.0, Absolute Neuts (auto) 8.4 H, Absolute Lymphs (auto) 0.62 L, Nucleated RBC % 0, Sodium 157 H, Potassium 3.4, Chloride 114 H, Carbon Dioxide 29.8, Anion Gap 13, BUN 36 H, Creatinine 1.28 H, Estim Creat Clear Calc 40.47 L, Est GFR (MDRD) Non-Af 58 L, BUN/Creatinine Ratio 27.8 H, Glucose 106 H, Calcium 9.3 09/20/24 06:22: POC Glucose 100 Micro: Microbiology 09/14/24 08:15 Blood Culture (Wb) - No Site/Description Given Blood Culture - Final No growth in 5 days. 09/14/24 08:15 Blood Culture (Wb) - Pic Blood Culture - Final No growth in 5 days. Assessment and Plan . Assessment and plan: Subjective: No acute events o/n. Feels breathing a bit more difficult today, though has still been able to tolerate breaks off NIV. Down to 3L NC currently Physical Exam: Gen - NAD, well-developed HEENT - MMM. Sclera anicteric Resp - Diminished BS. Mild tachypnea CV - RRR. No m/g/r Abd - Soft, NT, ND Ext - No c/c/e. Skin - No rashes? Neuro - Awake, answers questions appropriately I have reviewed the pertinent vital sign, laboratory, and imaging data. ASSESSMENT: # Acute on chronic hypoxic and hypercapneic respiratory failure - extubated 09/14, required reintubation 09/17 for worsening respiratory acidosis. Extubated again 09/18 per pt/family wishes and no plans for reintubation now # Restrictive lung disease ? 2/2 poliomyelitis and severe kyphoscoliosis # Possible UTI # Possible PNA - sputum Cx with morganella # Hypernatremia # Acute encephalopathy ? CT head without acute pathology # Acute L femoral neck fracture - s/p surgical repair 09/09 # TERRENCE # h/o Afib # h/o syncope # HTN # BPH # LAKISHA PLAN: -On 3L NC now, wean to keep sats > 90%. Encouraged strict compliance with NIV with all daytime naps and sleep. Can also use PRN throughout the day for increased WOB -Cleared for PO diet per ST eval/barium swallow -Follow Na, D5W added for worsening hyperNa -Switched to merrem per IM for possible PNA. f/u Cx -Monitor Cr, UOP. Nephrology following -Cont duonebs -Replete electrolytes PRN FEN/GI: PO diet as per ST Proph DVT/GI: Eliquis Code status: DNR/DNI Updated family at bedside. Of note they are very concerned about pt's home NIV not being the same settings as what he is receiving the hospital, and do not feel his home NIV will therefore be as effective. Need to carefully review home NIV settings and ensure they are appropriately adjusted prior to discharge The entirety of this encounter was done via telemedicine using both audio and video. Consent was unable to be obtained for the telemedicine encounter due to the patient's mental status.
[2024-09-20 13:07] LABS: Anion Gap 11 (5-15); BUN 31 mg/dL (4-19); BUN/Creat Ratio 24.7 RATIO (10-20); Carbon Dioxide 30.7 mmol/L (21.0-32.0); Chloride 105 mmol/L (98-108); Creatinine, Serum 1.27 mg/dL (0.70-1.20); EST Glomerular Filtration Rate 58 (>60); Estimated Creatinine Clearance 40.79 ml/min (50-250); Glucose 170 mg/dL (70-99); Potassium 3.1 mmol/L (3.3-5.1); Sodium Level 147 mmol/L (133-145)
[2024-09-20] MEDS: Alteplase 2 MG/2 ML Vial IV (14:22)
--- NOTE | 2024-09-20 14:27 | CPS ---
Family brought pt's Astral in. They would like to see if it can be changed close to the settings we have him on currently. He is on AVAPS, his Atral i IVAPs E-5, Min PS 6/Max PS 20, Ti 0.50/1.50. This RT explained that it is not legal for us to change settings on the Astral, that Dr Monsivais would have to change the prescription and Mari would change the settings. We could then trial him on the new settings before he is discharged. This RT will talk to Dr Monsivais on Sunday09/22/24 and explain family's concerns.
[2024-09-20 16:18] LABS: Bedside Glucose 186 mg/dL (74-106)
[2024-09-20 16:45] LABS: Anion Gap 10 (5-15); BUN 30 mg/dL (4-19); BUN/Creat Ratio 21.8 RATIO (10-20); Carbon Dioxide 33.1 mmol/L (21.0-32.0); Chloride 104 mmol/L (98-108); Creatinine, Serum 1.37 mg/dL (0.70-1.20); EST Glomerular Filtration Rate 53 (>60); Estimated Creatinine Clearance 37.81 ml/min (50-250); Glucose 203 mg/dL (70-99); Sodium Level 147 mmol/L (133-145)
[2024-09-20] MEDS: Potassium Chloride 20mEq/100mL 20 MEQ/100 ML IV.SOLN. 100 MEQ IV BOLUS ×2 (17:33→18:39)
[2024-09-20] MEDS: Tamsulosin HCl 0.4 MG Capsule PO (21:44)
[2024-09-20] MEDS: Sotalol Hydrochloride 80 MG Tablet PO (21:45)
[2024-09-20] MEDS: Losartan Potassium 50 MG Tablet PO (21:49)
[2024-09-20 21:55] LABS: Anion Gap 12 (5-15); BUN 27 mg/dL (4-19); BUN/Creat Ratio 23.2 RATIO (10-20); Calcium,Total 8.8 mg/dL (7.6-11.0); Carbon Dioxide 28.4 mmol/L (21.0-32.0); Chloride 103 mmol/L (98-108); Creatinine, Serum 1.17 mg/dL (0.70-1.20); EST Glomerular Filtration Rate 64 (>60); Estimated Creatinine Clearance 44.27 ml/min (50-250); Glucose 167 mg/dL (70-99); Potassium 3.5 mmol/L (3.3-5.1); Sodium Level 143 mmol/L (133-145)
[2024-09-21] VITALS (17 sets, daily range): BP systolic 106–137; BP diastolic 57–86; PULSE 43–64; RESP 14–35; TEMP 36.1–37.1; O2SAT 94–100; BMI 27.7
[2024-09-21] MEDS: Menthol/Lanolin/Calamine/Znox 113 GM Tube 1 APPLIC TOPICAL ×3 (05:22→22:41)
--- NOTE | 2024-09-21 07:37 | PN.HOSP_ITS ---
Reason for Visit Reason for Visit: Diagnoses Acute and chronic respiratory failure with hypercapnia (09/05/24) Acute kidney failure, unspecified (09/05/24) Urinary tract infection, site not specified (09/05/24) Fracture of unspecified part of neck of left femur, initial encounter for closed fracture (09/05/24) skilled nursing (current) use of anticoagulants (09/05/24) Subjective Subjective Patient was transferred from intensive care unit to the progressive care unit. Patient remains on continuous telemetry monitoring. Patient heart rate variable ranging from the high 40s to the 60s with activity. Patient is on sotalol did continue. Patient also complains of feeling congested did slow down his D5W. Ordered chest x-ray for subsequent eval Objective Data Objective Data Vital Signs: Vital Signs Temp Pulse Resp BP Pulse Ox O2 Del Method O2 Flow Rate 97.0 F L 43 L 19 H 106/58 L 100 Bi-pap 2 09/21/24 02:57 09/21/24 03:24 09/21/24 03:24 09/21/24 02:57 09/21/24 03:24 09/21/24 02:57 09/20/24 22:00 FiO2 28 09/21/24 03:24 Oxygen Flow Rate (L/min) 2 Oxygen Delivery Method Bi-pap Weight: 73.3 kg Body Mass Index (BMI) 27.7 Intake & Output: Intake and Output for Last 24 Hours 09/19/24 09/20/24 09/21/24 23:59 23:59 23:59 Intake Total 2416.67 / 2416.67 2111.04 / 2111.04 120 / 120 Output Total 900 / 900 950 / 950 100 / 100 Balance 1516.67 / 1516.67 1161.04 / 1161.04 Lab / Micro Data 09/21/24 05:39 09/20/24 20:57 Labs: Laboratory Results - last 24 hr 09/20/24 12:10: Sodium 147 H, Potassium 3.1 L, Chloride 105, Carbon Dioxide 30.7, Anion Gap 11, BUN 31 H, Creatinine 1.27 H, Estim Creat Clear Calc 40.79 L, Est GFR (MDRD) Non-Af 58 L, BUN/Creatinine Ratio 24.7 H, Glucose 170 H, Calcium 9.0 09/20/24 15:54: POC Glucose 186 H 05/31/25 16:10: Sodium 147 H, Potassium 3.0 L, Chloride 104, Carbon Dioxide 33.1 H, Anion Gap 10, BUN 30 H, Creatinine 1.37 H, Estim Creat Clear Calc 37.81 L, E st GFR (MDRD) Non-Af 53 L, BUN/Creatinine Ratio 21.8 H, Glucose 203 H, Calcium 9.0 09/20/24 20:57: Sodium 143, Potassium 3.5, Chloride 103, Carbon Dioxide 28.4, Anion Gap 12, BUN 27 H, Creatinine 1.17, Estim Creat Clear Calc 44.27 L, Est GFR (MDRD) Non-Af 64, BUN/Creatinine Ratio 23.2 H, Glucose 167 H, Calcium 8.8 Micro: Microbiology 09/14/24 08:15 Blood Culture (Wb) - No Site/Description Given Blood Culture - Final No growth in 5 days. 09/14/24 08:15 Blood Culture (Wb) - Pic Blood Culture - Final No growth in 5 days. 09/17/24 13:35 Sputum, Induced/Lukens Gram Stain - Final 09/17/24 13:35 Sputum, Induced/Lukens Respiratory Culture - Final Morganella morganii sp morgani 09/14/24 08:15 Urine Catheter - Hendrix Urine Culture - Final Culture exhibits no growth. 09/14/24 08:28 Sputum, Tracheal Aspirate Gram Stain - Final 09/14/24 08:28 Sputum, Tracheal Aspirate Respiratory Culture - Final Presumptive C albicans 09/10/24 02:18 Blood Culture (Wb) - Left Forearm Blood Culture - Final No growth in 5 days. 09/14/24 08:40 Urine Catheter - Hendrix Legionella Antigen - Final 09/14/24 08:40 Urine Catheter - Hendrix Streptococcus pneumoniae Antigen (M - Final 09/14/24 08:28 Mucosa - Nose Coronavirus COVID-19 PCR - Final 09/14/24 08:28 Mucosa - Nose Influenza & RSV (PCR) - Final 09/10/24 02:20 Urine Catheter - Hendrix Urine Culture - Final Culture exhibits no growth. 09/10/24 02:49 Sputum, Expectorated/Coughed Gram Stain - Final 09/10/24 02:49 Sputum, Expectorated/Coughed Respiratory Culture - Final Presumptive C albicans 09/05/24 02:46 Blood Culture (Wb) - Anticubital Left Blood Culture - Final No growth in 5 days. 09/05/24 03:00 Blood Culture (Wb) - Left Hand Blood Culture - Final No growth in 5 days. 09/05/24 04:30 Sputum, Induced/Lukens Gram Stain - Final 09/05/24 04:30 Sputum, Induced/Lukens Respiratory Culture - Final Mixed normal respiratory rogelio. No Streptococcus pneumoniae, beta-hemolytic Streptococcus or Staphylococcus aureus isolated. 09/05/24 01:00 Urine, Clean Catch Urine Culture - Final Staphylococcus epidermidis Physical Exam Narrative GENERAL: Patient on nasal cannula HEENT: ET tube in place EYES; Anicteric, Normal Conjunctiva NECK; supple, normal thyroid, RESPIRATORY: Diminished to auscultation CARDIOVASCULAR: Regular S1 S2, GI: soft, normoactive bowel sounds, : No Renal angle tenderness; EXTREMITIES: Edema involving both upper and lower extremity, MUSCULOSKELETAL: no muscle wasting NEURO: No lateralizing signs SKIN: No Rash PSYCH; flat affect Assessment & Plan Assessment/Plan (1) Closed fracture of neck of left femur: QUALIFIERS: Encounter type: initial encounter Qualified Code(s): S72.002A - Fracture of unspecified part of neck of left femur, initial encounter for closed fracture PLAN: Plan Patient is a 79-year-old gentleman with 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 Intubated in the ED due to metabolic encephalopathy secondary to hypercapnia. Patient subsequently underwent left femoral neck fracture repair on 09/09/2024 1. Acute on chronic hypoxic and hypercapnic respiratory failure ? Secondary to restrictive lung disease. Patient presented with altered mental status and elevated pCO2 patient was intubated and subsequently admitted to the intensive care unit. Vent management deferred to supplier quality manager/critical care ? 09/14/2024; patient seen remains on the vent patient continues to spike fevers subsequently ordered urine culture and urinalysis with reflex culture, blood culture, checks x-ray, COVID assay as well as viral respiratory panel ? 09/15/2024;Patient was weaned off the vent the day prior subsequently placed on AVAPS and still remains on that attempt to wean patient off AVAPS so far unsuccessful ? 09/16/2024; patient has been weaned down to nasal cannula ? 09/18/2024;Patient was reintubated after he was found to be significantly hypercapnic once off the BiPAP. Case was discussed with Dr Garcia with pulmonology plan is have a family discussion regarding options including possible trach ? 09/19/2024 Patient was successfully weaned off the vent. Family wishes. CODE STATUS was changed to DNR CCA DO NOT INTUBATE. Patient has since tolerated intermittent BiPAP on and off. Much more interactive and coherent this morning. ? 09/20/2024; patient remains on supplemental oxygen plan is to transfer from the ICU to the progressive care unit ? 09/21/2024; patient on 3 L flow per minute 2. Acute metabolic encephalopathy ? Secondary to above 09/14/2024; a complete assessment will be performed once patient is off the vent ? 09/15/2024; patient was essentially weaned off the vent the day prior his level of sensorium appears to be back to baseline ? 09/16/2024; nursing staff reports intermittent delirium ? 09/18/2024; patient back on the vent ? 09/19/2024; patient currently on nasal cannula much more interactive ? 09/21/2024; back to his baseline 3. Acute mechanical fall with left femoral neck fracture ? Patient underwent surgical repair on 09/09/2024 4. Acute kidney injury ? Patient had been empirically started on vancomycin and Zosyn do suspect drug- induced nephritis. Offending medications discontinued. Monitoring response to therapy with daily BMP.With patient kidney function continues to worsen consult was placed to nephrology ? 09/14/2024; ordered kidney ultrasound to rule out obstructive uropathy. Patient creatinine 1.9 this a.m. repeat labs ordered in a.m. ? 09/15/2024; creatinine down to 1.8 ? 09/16/2024; no change in patient kidney function ? 09/17/2024; no change in kidney function ? 09/18/2024; creatinine down to 1.5 BUN however remains elevated at 60 5. Anemia ? Secondary to chronic disorder monitoring H&H and transfuse if patient becomes symptomatic or hemoglobin falls below 7 6. Acute on chronic congestive heart failure with preserved ejection fraction ? Echo obtained on 07/22/2024 demonstrated EF of 55% with PASP of 5035 mmHg. Patient did receive Lasix 7. Paroxysmal A-fib ? Patient is on on sotalol as well as systemic anticoagulation with apixaban.. Home medications continued ? 09/21/2024; patient heart rate remains variable we will continue with current treatment regimen including sotalol while keeping close eye on his heart rate given the propensity to drop to the high 40s 8. 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 Patient has significant complications including restrictive lung disease 9. Depression ? Patient is on venlafaxine, plan is to resume once off the event 10. Central sleep apnea ? Patient uses BiPAP at night will resume when patient is extubated 11 Chronic hypoxic and hypercapnic respiratory failure ? Patient is on continuous home oxygen during the day 12. BPH with lower urinary obstructive symptoms - Patient treated with tamsulosin, continued 13. Hypokalemia - Potassium this a.m. is 3.4 corrected per protocol, repeat labs ordered for monitoring unit. Also added magnesium level for a.m. ? 09/14/2024; patient potassium remains low additional replacement given repeat labs ordered for a.m. 14. Essential hypertension ? Patient blood pressure control remains labile we will continue with monitoring and adjust medications if warranted 15. DVT prophylaxis ? On apixaban 16. Hypernatremia ? Adjusted patient IV fluid, repeated BMP in a.m. ? 09/19/2024; patient sodium levels down to 138 ? 09/20/2024; patient sodium levels up to 157 on D5W and ordered BMP every 4 ? 09/21/2024;Sodium level had dropped to 143 as of 09/20/20242056. Repeat labs ordered for subsequent eval 17. Hyperkalemia ? Secondary to potassium supplementation adjusted patient IV fluids and discontinued potassium supplementation. Will continue to monitor continuously until. Repeat potassium levels ordered in a.m. ? 09/20/2024; hyperkalemia resolved Charges/Coding Visit Charges Inpatient E&M: 27172 Subs Hosp L2
--- NOTE | 2024-09-21 07:37 | EKG12_ITS ---
Test Reason : Blood Pressure : */* mmHG Vent. Rate : 43 BPM Atrial Rate : 43 BPM P-R Int : 162 ms QRS Dur : 64 ms QT Int : 572 ms P-R-T Axes : 88 12 11 degrees QTcB Int : 483 ms Marked sinus bradycardia with Premature supraventricular complexes ST & T wave abnormality, consider anterior ischemia Prolonged QT Abnormal ECG When compared with ECG of 07-Sep-2024 06:16, Nonspecific T wave abnormality now evident in Inferior leads T wave inversion now evident in Anterior leads Confirmed by AFSANEH SILVA ([id number]), business editor DELMIS CORREA ([id number]) on 09/22/2024 8:13:40 AM Referred By: Confirmed By: AFSANEH SILVA
[2024-09-21 07:43] LABS: Pro- Brain NATRIURETIC PEPTIDE 2144 pg/mL (<=1800)
--- NOTE | 2024-09-21 08:38 | PN.CC_ITS ---
Objective Data Objective Data Vital Signs: Vital Signs Last response 3 Temperature 36.1 C L 09/21/24 02:57 Temperature Source Temporal 09/21/24 02:57 Pulse Rate 43 L 09/21/24 03:24 Pulse Strength Normal (2+) 09/20/24 09:21 Respiratory Rate 19 H 09/21/24 03:24 Respiratory Effort Normal 09/21/24 03:28 Respiratory Depth Deep 09/20/24 22:00 Respiratory Pattern Tachypnea 09/21/24 03:28 Blood Pressure 106/58 L 09/21/24 02:57 Blood Pressure Mean 74 09/21/24 02:57 Blood Pressure Source Monitor 09/21/24 02:57 Blood Pressure Position Semi-Fowlers 09/21/24 02:57 Blood Pressure Location Left Arm 09/21/24 02:57 Pulse Ox 100 09/21/24 03:24 Oxygen Delivery Method Bi-pap 09/21/24 02:57 Oxygen Flow Rate (L/min) 2 09/20/24 22:00 Fraction of Inspired Oxygen (FIO2) 28 09/21/24 03:24 EtCo2 - Document during CPR and with ROSC 35 09/09/24 16:27 I&O: I&O Last 24 Hours 3 09/20/24 09/20/24 09/21/24 11:59 23:59 11:59 Intake Total 91.04 / 2111.04 2020 / 2111.04 120 / 120 Output Total 350 / 950 600 / 950 100 / 100 Balance -258.96 / 1161.04 1420 / 1161.04 I&O: Total Stay 3 09/04/24 23:32 thru 09/21/24 06:00 Intake Total 35114.45 Output Total 87198 Balance 80129.45 Current Meds Ordered / Administered: Current meds ordered / Administered 3 Generic Name Dose Route Start Last Admin Trade Name Freq PRN Reason Stop Dose Admin Acetaminophen 650 mg 09/20/24 10:06 Acetaminophen 650 Mg/20 Ml Udc PO Q6H PRN PRN Pain 1-10 or Fever Albuterol Sulfate 2.5 mg 09/05/24 05:29 09/14/24 10:59 Albuterol 2.5 Mg/3 Ml Vial.Neb. INHALATION 2.5 mg Q2H PRN PRN Administration SOB &/OR WHEEZING Apixaban 5 mg 09/20/24 22:00 09/20/24 21:44 Apixaban 5 Mg Tablet PO 5 mg BID NIURKA Administration Buspirone HCl 10 mg 09/20/24 22:00 09/20/24 21:44 Buspirone 5 Mg Tablet PO 10 mg BID NIURKA Administration Calamine/Phenol 1 applic 09/15/24 14:00 09/21/24 05:22 Menthol/Lanolin/Calamine/Znox 113 Gm Tube TOPICAL 1 applic TID NIURKA Administration Protocol Chlorhexidine Gluconate 1 each 09/06/24 10:00 09/20/24 09:48 Chlorhexidine Gluc 2% Cloth 1 Each Towelette TOPICAL Not Given DAILY NIURKA Glucagon 1 mg 09/05/24 05:29 Glucagon 1 Mg/Ml Syringe IM X1 PRN HYPOGLYCEMIA Protocol Dextrose 250 mls @ 0 mls/hr 09/05/24 05:29 09/19/24 01:53 Dextrose 10%-Water IV Infused .Q0M PRN Infusion HYPOGLYCEMIA Protocol As Directed Sodium Chloride 250 mls @ 15 mls/hr 09/05/24 06:03 09/18/24 12:34 IV Infused .[id number] PRN Infusion Saline Flush Sodium Chloride 250 mls @ 15 mls/hr 09/05/24 06:03 IV .[id number] PRN Additional IVPB Infusion Dexmedetomidine HCl 400 mcg/ 100 mls @ 7.95 mls/hr 09/17/24 13:15 09/20/24 17:27 Sodium Chloride CONT INF Not Given .[id number] NIURKA Protocol 0.5 MCG/KG/HR Pantoprazole Sodium 40 mg/ 100 mls @ 330 mls/hr 09/18/24 10:00 09/20/24 12:36 Sodium Chloride IV Infused Q24 NIURAK Infusion Dextrose 1,000 mls @ 100 mls/hr 09/20/24 08:10 09/20/24 22:16 IV 100 mls/hr .Q10H NIURKA Administration Meropenem 1 gm/ Sodium 120 mls @ 33 mls/hr 09/20/24 10:00 09/21/24 01:21 Chloride IV Infused Q12 NIURKA Infusion Losartan Potassium 50 mg 09/20/24 22:00 09/20/24 21:49 Losartan Potassium 50 Mg Tablet PO 50 mg QHS NIURKA Administration Protocol Oxycodone HCl 5 mg 09/19/24 17:58 09/19/24 18:29 Oxycodone 5 Mg Tablet PO 5 mg Q6H PRN PRN Administration Pain Score 1-10 Polyethylene Glycol 8.5 gm 09/20/24 10:06 Polyethylene Glycol 3350 17 Gm Packet PO Q48H PRN constipation Prochlorperazine Edisylate 10 mg 09/16/24 18:23 09/16/24 18:39 Prochlorperazine 10 Mg/2 Ml Vial IV 10 mg Q6H PRN PRN Administration NAUSEA/VOMITING Sodium Chloride 10 - 40 ml 09/05/24 06:03 09/17/24 10:13 0.9% Saline Lock 10 Ml Syringe IV 10 ml UD PRN Administration SALINE FLUSH Sotalol HCl 80 mg 09/20/24 22:00 09/20/24 21:45 Sotalol Hydrochloride 80 Mg Tablet PO 80 mg BID [facility] Administration Protocol Tamsulosin HCl 0.4 mg 09/05/24 10:00 09/20/24 21:44 Tamsulosin Hcl 0.4 Mg Capsule PO 0.4 mg BID NIURKA Administration Venlafaxine HCl 75 mg 09/05/24 10:00 09/20/24 09:49 Venlafaxine Xr 75 Mg Capsule PO Not Given DAILY [facility] Lab / Micro Data 09/21/24 05:39 09/21/24 05:39 Labs: Laboratory Results - last 24 hr 09/20/24 12:10: Sodium 147 H, Potassium 3.1 L, Chloride 105, Carbon Dioxide 30.7, Anion Gap 11, BUN 31 H, Creatinine 1.27 H, Estim Creat Clear Calc 40.79 L, Est GFR (MDRD) Non-Af 58 L, BUN/Creatinine Ratio 24.7 H, Glucose 170 H, Calcium 9.0 09/20/24 15:54: POC Glucose 186 H 09/20/24 16:10: Sodium 147 H, Potassium 3.0 L, Chloride 104, Carbon Dioxide 33.1 H, Anion Gap 10, BUN 30 H, Creatinine 1.37 H, Estim Creat Clear Calc 37.81 L, E st GFR (MDRD) Non-Af 53 L, BUN/Creatinine Ratio 21.8 H, Glucose 203 H, Calcium 9.0 09/20/24 20:57: Sodium 143, Potassium 3.5, Chloride 103, Carbon Dioxide 28.4, Anion Gap 12, BUN 27 H, Creatinine 1.17, Estim Creat Clear Calc 44.27 L, Est GFR (MDRD) Non-Af 64, BUN/Creatinine Ratio 23.2 H, Glucose 167 H, Calcium 8.8 09/21/24 05:39: NT pro BNP II 2144 H Assessment and Plan . Assessment and plan: Subjective: No acute events o/n. Feels breathing a bit worse earlier this AM but now better. Tolerated being off NIV and eating breakfast this AM. Physical Exam: Gen - NAD, well-developed HEENT - MMM. Sclera anicteric Resp - Diminished BS. Mild tachypnea CV - RRR. No m/g/r Abd - Soft, NT, ND Ext - No c/c/e. Skin - No rashes? Neuro - Awake, answers questions appropriately I have reviewed the pertinent vital sign, laboratory, and imaging data. ASSESSMENT: # Acute on chronic hypoxic and hypercapneic respiratory failure - extubated 09/14, required reintubation 09/17 for worsening respiratory acidosis. Extubated again 09/18 per pt/family wishes and no plans for reintubation now # Restrictive lung disease ? 2/2 poliomyelitis and severe kyphoscoliosis # Possible UTI # Possible PNA - sputum Cx with morganella # Hypernatremia # Acute encephalopathy ? CT head without acute pathology # Acute L femoral neck fracture - s/p surgical repair 09/09 # TERRENCE # h/o Afib # h/o syncope # HTN # BPH # LAKISHA PLAN: -Cont 3L NC while awake, wean to keep sats > 90%. Encouraged strict compliance with NIV with all daytime naps and sleep. Can also use PRN throughout the day for increased WOB -Cleared for PO diet per ST eval/barium swallow -Follow Na, D5W added for worsening hyperNa. Give dose of diuril today as well, BNP substantially elevated (though in setting of TERRENCE as well). Can likely stop D5W soon. -Switched to merrem per IM for possible PNA. f/u Cx -Monitor Cr, UOP. Nephrology following -Cont duonebs -Replete electrolytes PRN FEN/GI: PO diet as per ST Proph DVT/GI: Eliquis Code status: DNR/DNI Updated family at bedside. They report that RT was able to verify and set home NIV machine settings, would confirm this The entirety of this encounter was done via telemedicine using both audio and video. Consent was obtained
[2024-09-21 09:12] LABS: Absolute Lymphocyte Count 0.64 X10^3/uL (0.83-4.51); Absolute Neutrophil Count 7.1 X10^3/uL (2.0-7.7); Basophil# 0.05 X10^3/uL; Basophil% 0.6 % (0-1); Eosinophil# 0.22 X10^3/uL; Eosinophils% 2.5 % (0-5); Hematocrit 28.7 % (40-54); Hemoglobin 9.1 g/dL (13.0-16.5); Lymphocyte # 0.64 X10^3/ul (0.83-4.51); Lymphocyte % 7.3 % (19-41); Mean Corp Hgb Conc 31.7 g/dL (32-36); Mean Corpuscular Hgb 31.1 pg (27.0-32.0); Monocyte# 0.63 X10^3/uL; Monocyte% 7.2 % (0-10); NRBC Flagged by Analyzer 0 % (0-5); Neutrophil # 7.09 X10^3/uL (2.7-7.7); Neutrophil % 80.5 % (47-70); Platelet Count 496 K/mm3 (150-450); RBC Distribution Width CV 13.9 % (11.6-14.6); Red Blood Count 2.93 M/mm3 (4.6-6.2); White Blood Count 8.8 K/mm3 (4.4-11.0)
[2024-09-21] MEDS: Sotalol Hydrochloride 80 MG Tablet PO (09:19)
--- NOTE | 2024-09-21 09:23 | RAD_ITS ---
PROCEDURE: CHEST 1 VIEW (PORTABLE) 09/21/2024 REASON FOR EXAM: DYSPNEA TECHNIQUE: Frontal view of the chest. COMPARISON: Chest radiograph 09/19/2024. FINDINGS: Hardware: Partially visualized right upper extremity PICC with tip overlying the right atrium. Heart: Cardiac and mediastinal contours are stable. Lungs: Probable persistent right lower lung zone patchy opacities. Probable small right pleural effusion. The left lung is grossly unremarkable. Bones: Stable severe scoliosis with deformity of the chest. RAD/Chest 1 View (Portable) IMPRESSION: Stable chest radiograph. Reading Location: [id number]
[2024-09-21] MEDS: busPIRone 5 MG Tablet 10 MG PO ×2 (09:24→22:41)
[2024-09-21] MEDS: Pantoprazole Sodium 40 MG in 0.9% Normal Saline (100mL MB+) 100 ML 330 MG IV (09:25)
[2024-09-21] MEDS: APIXABAN 5 MG TABLET PO ×2 (09:25→22:40)
[2024-09-21] MEDS: Dextrose 5%-Water (1000mL Bag) 1,000 ML 50 ML IV (09:29)
[2024-09-21 09:55] LABS: Anion Gap 12 (5-15); BUN 25 mg/dL (4-19); BUN/Creat Ratio 22.3 RATIO (10-20); Calcium,Total 8.6 mg/dL (7.6-11.0); Carbon Dioxide 28.1 mmol/L (21.0-32.0); Chloride 102 mmol/L (98-108); Creatinine, Serum 1.14 mg/dL (0.70-1.20); EST Glomerular Filtration Rate 66 (>60); Estimated Creatinine Clearance 49.77 ml/min (50-250); Glucose 142 mg/dL (70-99); Magnesium 1.9 mg/dL (1.5-2.2); Phosphorus 1.8 mg/dL (2.7-4.5); Potassium 3.4 mmol/L (3.3-5.1); Sodium Level 142 mmol/L (133-145)
[2024-09-21] MEDS: Meropenem 1 GM in 0.9% Normal Saline (100mL MB+) 100 ML IV ×2 (10:52→22:40)
[2024-09-21] MEDS: Na Biphos/Potassium Phosphate PACKET 1 PACKET PO ×2 (12:54→22:41)
[2024-09-21] MEDS: Potassium Chloride Oral Tablet 20 MEQ 40 MEQ PO (12:55)
--- NOTE | 2024-09-21 13:52 | CPS ---
Pt's DsW1=323% on 24% on AVAPS, decreased to 21%, SpO2=97%
[2024-09-21 17:14] LABS: Bedside Glucose 89 mg/dL (74-106)
[2024-09-21 22:30] LABS: Bedside Glucose 106 mg/dL (74-106)
[2024-09-22] VITALS (7 sets, daily range): BP systolic 134–165; BP diastolic 51–95; PULSE 63–72; RESP 14–33; TEMP 36.6–37.2; O2SAT 93–100; BMI 26.6
[2024-09-22 04:57] LABS: Bedside Glucose 91 mg/dL (74-106)
[2024-09-22] MEDS: Dextrose 5%-Water (1000mL Bag) 1,000 ML 50 ML IV (05:19)
[2024-09-22] MEDS: Menthol/Lanolin/Calamine/Znox 113 GM Tube 1 APPLIC TOPICAL ×2 (05:23→14:01)
[2024-09-22 05:55] LABS: Absolute Lymphocyte Count 0.64 X10^3/uL (0.83-4.51); Absolute Neutrophil Count 8.4 X10^3/uL (2.0-7.7); Basophil# 0.09 X10^3/uL; Basophil% 0.8 % (0-1); Eosinophil# 1.16 X10^3/uL; Eosinophils% 10.2 % (0-5); Hemoglobin 9.5 g/dL (13.0-16.5); Lymphocyte # 0.64 X10^3/ul (0.83-4.51); Lymphocyte % 5.6 % (19-41); Mean Corp Hgb Conc 32.8 g/dL (32-36); Mean Corpuscular Hgb 30.4 pg (27.0-32.0); Mean Corpuscular Volume 92.9 fL (80-94); Mean Platelet Vol. 9.5 fl (6.2-12.0); Monocyte# 0.83 X10^3/uL; Monocyte% 7.3 % (0-10); NRBC Flagged by Analyzer 0 % (0-5); Neutrophil # 8.44 X10^3/uL (2.7-7.7); Neutrophil % 74.4 % (47-70); Platelet Count 540 K/mm3 (150-450); RBC Distribution Width CV 13.8 % (11.6-14.6); RBC Distribution Width SD 46.5 fl (35.1-43.9); Red Blood Count 3.12 M/mm3 (4.6-6.2); White Blood Count 11.4 K/mm3 (4.4-11.0)
[2024-09-22 06:46] LABS: Anion Gap 10 (5-15); BUN 19 mg/dL (4-19); BUN/Creat Ratio 17.8 RATIO (10-20); Calcium,Total 8.8 mg/dL (7.6-11.0); Carbon Dioxide 30.4 mmol/L (21.0-32.0); Chloride 99 mmol/L (98-108); Creatinine, Serum 1.04 mg/dL (0.70-1.20); EST Glomerular Filtration Rate 74 (>60); Estimated Creatinine Clearance 49.81 ml/min (50-250); Glucose 97 mg/dL (70-99); Magnesium 1.6 mg/dL (1.5-2.2); Phosphorus 1.7 mg/dL (2.7-4.5); Potassium 3.1 mmol/L (3.3-5.1); Sodium Level 140 mmol/L (133-145)
--- NOTE | 2024-09-22 08:49 | PCM.PN.HOSP ---
Reason for Visit Reason for Visit: Diagnoses Acute and chronic respiratory failure with hypercapnia (09/05/24) Acute kidney failure, unspecified (09/05/24) Urinary tract infection, site not specified (09/05/24) Fracture of unspecified part of neck of left femur, initial encounter for closed fracture (09/05/24) [facility] (current) use of anticoagulants (09/05/24) Subjective Subjective Patient seen magnesium and phosphorus down this a.m. His acute kidney injury has resolved. Objective Data Objective Data Vital Signs: Vital Signs Temp Pulse Resp BP Pulse Ox O2 Del Method O2 Flow Rate 98 F 63 32 H 134/74 H 96 Bi-pap 3 09/22/24 04:39 09/22/24 05:22 09/22/24 05:22 09/22/24 04:39 09/22/24 05:22 09/22/24 04:39 09/21/24 23:00 FiO2 21 09/22/24 05:22 Oxygen Flow Rate (L/min) 3 Oxygen Delivery Method Bi-pap Weight: 70.4 kg Body Mass Index (BMI) 26.6 Intake & Output: Intake and Output for Last 24 Hours 09/20/24 09/21/24 09/22/24 23:59 23:59 23:59 Intake Total 2111.04 / 2111.04 1940 / 1940 1111.67 / 1111.67 Output Total 950 / 950 650 / 1000 750 / 750 Balance 1161.04 / 1161.04 1290 / 940 361.67 / 361.67 Lab / Micro Data 09/22/24 05:28 09/22/24 05:28 Labs: Laboratory Results - last 24 hr 09/21/24 05:39: WBC 8.8, RBC 2.93 L, Hgb 9.1 L, Hct 28.7 L, MCV 98.0 H, MCH 31.1, MCHC 31.7 L, RDW Std Deviation 49.0 H, RDW Coeff of Larry 13.9, Plt Count 496 H, MPV 10.0, Immature Gran % (Auto) 1.900 H, Neut % (Auto) 80.5 H, Lymph % (Auto) 7.3 L, [place] % (Auto) 7.2, Eos % (Auto) 2.5, Baso % (Auto) 0.6, Absolute Neuts (auto) 7.1, Absolute Lymphs (auto) 0.64 L, Nucleated RBC % 0, Sodium 142, Potassium 3.4, Chloride 102, Carbon Dioxide 28.1, Anion Gap 12, BUN 25 H, Creatinine 1.14, Estim Creat Clear Calc 49.77 L, Est GFR (MDRD) Non-Af 66, BUN/Creatinine Ratio 22.3 H, Glucose 142 H, Calcium 8.6, Phosphorus 1.8 L, Magnesium 1.9 09/21/24 13:06: POC Glucose 89 09/21/24 17:13: POC Glucose 106 09/22/24 04:34: POC Glucose 91 09/22/24 05:28: WBC 11.4 H, RBC 3.12 L, Hgb 9.5 L, Hct 29.0 L, MCV 92.9 D, MCH 30.4, MCHC 32.8, RDW Std Deviation 46.5 H, RDW Coeff of Larry 13.8, Plt Count 540 H, MPV 9.5, Immature Gran % (Auto) 1.700 H, Neut % (Auto) 74.4 H, Lymph % (Auto) 5.6 L, [place] % (Auto) 7.3, Eos % (Auto) 10.2 H, Baso % (Auto) 0.8, Absolute Neuts (auto) 8.4 H, Absolute Lymphs (auto) 0.64 L, Nucleated RBC % 0, Sodium 140, Potassium 3.1 L, Chloride 99, Carbon Dioxide 30.4, Anion Gap 10, BUN 19, Creatinine 1.04, Estim Creat Clear Calc 49.81 L, Est GFR (MDRD) Non-Af 74, BUN/Creatinine Ratio 17.8, Glucose 97, Calcium 8.8, Phosphorus 1.7 L, Magnesium 1.6 Micro: Microbiology 09/14/24 08:15 Blood Culture (Wb) - No Site/Description Given Blood Culture - Final No growth in 5 days. 09/14/24 08:15 Blood Culture (Wb) - Pic Blood Culture - Final No growth in 5 days. 09/17/24 13:35 Sputum, Induced/Lukens Gram Stain - Final 09/17/24 13:35 Sputum, Induced/Lukens Respiratory Culture - Final Morganella morganii sp morgani 09/14/24 08:15 Urine Catheter - Hendrix Urine Culture - Final Culture exhibits no growth. 09/14/24 08:28 Sputum, Tracheal Aspirate Gram Stain - Final 09/14/24 08:28 Sputum, Tracheal Aspirate Respiratory Culture - Final Presumptive C albicans 09/10/24 02:18 Blood Culture (Wb) - Left Forearm Blood Culture - Final No growth in 5 days. 09/14/24 08:40 Urine Catheter - Hendrix Legionella Antigen - Final 09/14/24 08:40 Urine Catheter - Hendrix Streptococcus pneumoniae Antigen (M - Final 09/14/24 08:28 Mucosa - Nose Coronavirus COVID-19 PCR - Final 09/14/24 08:28 Mucosa - Nose Influenza & RSV (PCR) - Final 09/10/24 02:20 Urine Catheter - Hendrix Urine Culture - Final Culture exhibits no growth. 09/10/24 02:49 Sputum, Expectorated/Coughed Gram Stain - Final 09/10/24 02:49 Sputum, Expectorated/Coughed Respiratory Culture - Final Presumptive C albicans 09/05/24 02:46 Blood Culture (Wb) - Anticubital Left Blood Culture - Final No growth in 5 days. 09/05/24 03:00 Blood Culture (Wb) - Left Hand Blood Culture - Final No growth in 5 days. 09/05/24 04:30 Sputum, Induced/Lukens Gram Stain - Final 09/05/24 04:30 Sputum, Induced/Lukens Respiratory Culture - Final Mixed normal respiratory rogelio. No Streptococcus pneumoniae, beta-hemolytic Streptococcus or Staphylococcus aureus isolated. 09/05/24 01:00 Urine, Clean Catch Urine Culture - Final Staphylococcus epidermidis Radiography Diagnostic Testing: Radiology Impression Chest X-Ray 09/21/24 09:23 IMPRESSION: Stable chest radiograph. Reading Location: [facility] Physical Exam Narrative GENERAL: Patient on nasal cannula HEENT: ET tube in place EYES; Anicteric, Normal Conjunctiva NECK; supple, normal thyroid, RESPIRATORY: Diminished to auscultation CARDIOVASCULAR: Regular S1 S2, GI: soft, normoactive bowel sounds, : No Renal angle tenderness; EXTREMITIES: Edema involving both upper and lower extremity, MUSCULOSKELETAL: no muscle wasting NEURO: No lateralizing signs SKIN: No Rash PSYCH; flat affect Assessment & Plan Assessment/Plan (1) Closed fracture of neck of left femur: QUALIFIERS: Encounter type: initial encounter Qualified Code(s): S72.002A - Fracture of unspecified part of neck of left femur, initial encounter for closed fracture PLAN: Plan Patient is a 79-year-old gentleman with 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 Intubated in the ED due to metabolic encephalopathy secondary to hypercapnia. Patient subsequently underwent left femoral neck fracture repair on 09/09/2024 1. Acute on chronic hypoxic and hypercapnic respiratory failure ? Secondary to restrictive lung disease. Patient presented with altered mental status and elevated pCO2 patient was intubated and subsequently admitted to the intensive care unit. Vent management deferred to retail administrative assistant/critical care ? 09/14/2024; patient seen remains on the vent patient continues to spike fevers subsequently ordered urine culture and urinalysis with reflex culture, blood culture, checks x-ray, COVID assay as well as viral respiratory panel ? 09/15/2024;Patient was weaned off the vent the day prior subsequently placed on AVAPS and still remains on that attempt to wean patient off AVAPS so far unsuccessful ? 09/16/2024; patient has been weaned down to nasal cannula ? 09/18/2024;Patient was reintubated after he was found to be significantly hypercapnic once off the BiPAP. Case was discussed with Dr Garcia with pulmonology plan is have a family discussion regarding options including possible trach ? 09/19/2024 Patient was successfully weaned off the vent. Family wishes. CODE STATUS was changed to DNR CCA DO NOT INTUBATE. Patient has since tolerated intermittent BiPAP on and off. Much more interactive and coherent this morning. ? 09/20/2024; patient remains on supplemental oxygen plan is to transfer from the ICU to the progressive care unit ? 09/21/2024; patient on 3 L flow per minute 2. Acute metabolic encephalopathy ? Secondary to above 09/14/2024; a complete assessment will be performed once patient is off the vent ? 09/15/2024; patient was essentially weaned off the vent the day prior his level of sensorium appears to be back to baseline ? 09/16/2024; nursing staff reports intermittent delirium ? 09/18/2024; patient back on the vent ? 09/19/2024; patient currently on nasal cannula much more interactive ? 09/21/2024; back to his baseline 3. Acute mechanical fall with left femoral neck fracture ? Patient underwent surgical repair on 09/09/2024 4. Acute kidney injury ? Patient had been empirically started on vancomycin and Zosyn do suspect drug-induced nephritis. Offending medications discontinued. Monitoring response to therapy with daily BMP.With patient kidney function continues to worsen consult was placed to nephrology ? 09/14/2024; ordered kidney ultrasound to rule out obstructive uropathy. Patient creatinine 1.9 this a.m. repeat labs ordered in a.m. ? 09/15/2024; creatinine down to 1.8 ? 09/16/2024; no change in patient kidney function ? 09/17/2024; no change in kidney function ? 09/18/2024; creatinine down to 1.5 BUN however remains elevated at 60 5. Anemia ? Secondary to chronic disorder monitoring H&H and transfuse if patient becomes symptomatic or hemoglobin falls below 7 6. Acute on chronic congestive heart failure with preserved ejection fraction ? Echo obtained on 07/22/2024 demonstrated EF of 55% with PASP of 5035 mmHg. Patient did receive Lasix 7. Paroxysmal A-fib ? Patient is on on sotalol as well as systemic anticoagulation with apixaban.. Home medications continued ? 09/21/2024; patient heart rate remains variable we will continue with current treatment regimen including sotalol while keeping close eye on his heart rate given the propensity to drop to the high 40s 8. 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 Patient has significant complications including restrictive lung disease 9. Depression ? Patient is on venlafaxine, plan is to resume once off the event 10. Central sleep apnea ? Patient uses BiPAP at night will resume when patient is extubated 11 Chronic hypoxic and hypercapnic respiratory failure ? Patient is on continuous home oxygen during the day 12. BPH with lower urinary obstructive symptoms - Patient treated with tamsulosin, continued 13. Hypokalemia - Potassium this a.m. is 3.4 corrected per protocol, repeat labs ordered for monitoring unit. Also added magnesium level for a.m. ? 09/14/2024; patient potassium remains low additional replacement given repeat labs ordered for a.m. ? 09/22/2024; potassium down to 3.1 additional replacement given 14. Essential hypertension ? Patient blood pressure control remains labile we will continue with monitoring and adjust medications if warranted 15. DVT prophylaxis ? On apixaban 16. Hypernatremia ? Adjusted patient IV fluid, repeated BMP in a.m. ? 09/19/2024; patient sodium levels down to 138 ? 09/20/2024; patient sodium levels up to 157 on D5W and ordered BMP every 4 ? 09/21/2024;Sodium level had dropped to 143 as of 09/20/20242056. Repeat labs ordered for subsequent eval 17. Hyperkalemia ? Secondary to potassium supplementation adjusted patient IV fluids and discontinued potassium supplementation. Will continue to monitor continuously until. Repeat potassium levels ordered in a.m. ? 09/20/2024; hyperkalemia resolved 18. Hypophosphatemia ? Corrected per protocol 19. Physical deconditioning ? Requested for PT OT eval and manager social media to assist with discharge planning Charges/Coding Visit Charges Inpatient E&M: 38111 Subs Hosp L2
[2024-09-22] MEDS: Sotalol Hydrochloride 80 MG Tablet PO (10:27)
[2024-09-22] MEDS: Venlafaxine XR 75 MG Capsule PO (10:27)
[2024-09-22] MEDS: APIXABAN 5 MG TABLET PO (10:27)
[2024-09-22] MEDS: Tamsulosin HCl 0.4 MG Capsule PO (10:27)
[2024-09-22] MEDS: busPIRone 5 MG Tablet 10 MG PO (10:27)
[2024-09-22] MEDS: Na Biphos/Potassium Phosphate PACKET 1 PACKET PO (10:28)
[2024-09-22] MEDS: Pantoprazole Sodium 40 MG in 0.9% Normal Saline (100mL MB+) 100 ML 330 MG IV (10:40)
--- NOTE | 2024-09-22 11:11 | CASEMGMT ---
Patient was accepted in TCU and insurance approved patient. SW notified patient, physician, RN, and patient's . Plan: d/c to [facility] TCU. Graciela ROBERTS
--- NOTE | 2024-09-22 11:20 | PCM.TXEXTCAR ---
Diet Diet Order/Speech Therapy: INPATIENT Hospital Diet / Speech Therapy Order(s) 09/19/24 10:12 Diet: Clear Liquid Diet Comments: Direct sup, NO STRAWS, SMALL SIPS, meds crushed in Routine Orders/Code Status Code Status: DNRCC-A DC O2, CPAP, BIPAP needs Home O2 Discharge instructions: Yes Type of respiratory needs?: Oxygen Oxygen frequency: Continuous Continuous oxygen liters per minute: 3 and BiPAP BiPAP instructions: At night 12 Wound(s) L hip: Wound Type: Surgical Incision left buttocks: Wound Type: Skin Tear Therapies Occupational Therapy: Eval and Treat Speech Therapy: Eval and Treat Problem/Diagnosis (1) Closed fracture of neck of left femur: Status: Acute Code(s): S72.002A - Fracture of unspecified part of neck of left femur, initial encounter for closed fracture Plan Patient is a 79-year-old gentleman with 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 Intubated in the ED due to metabolic encephalopathy secondary to hypercapnia. Patient subsequently underwent left femoral neck fracture repair on 09/09/2024 1. Acute on chronic hypoxic and hypercapnic respiratory failure ? Secondary to restrictive lung disease. Patient presented with altered mental status and elevated pCO2 patient was intubated and subsequently admitted to the intensive care unit. Vent management deferred to polisher and buffer/critical care ? 09/14/2024; patient seen remains on the vent patient continues to spike fevers subsequently ordered urine culture and urinalysis with reflex culture, blood culture, checks x-ray, COVID assay as well as viral respiratory panel ? 09/15/2024;Patient was weaned off the vent the day prior subsequently placed on AVAPS and still remains on that attempt to wean patient off AVAPS so far unsuccessful ? 09/16/2024; patient has been weaned down to nasal cannula ? 09/18/2024;Patient was reintubated after he was found to be significantly hypercapnic once off the BiPAP. Case was discussed with Dr Garcia with pulmonology plan is have a family discussion regarding options including possible trach ? 09/19/2024 Patient was successfully weaned off the vent. Family wishes. CODE STATUS was changed to DNR CCA DO NOT INTUBATE. Patient has since tolerated intermittent BiPAP on and off. Much more interactive and coherent this morning. ? 09/20/2024; patient remains on supplemental oxygen plan is to transfer from the ICU to the progressive care unit ? 09/21/2024; patient on 3 L flow per minute 2. Acute metabolic encephalopathy ? Secondary to above 09/14/2024; a complete assessment will be performed once patient is off the vent ? 09/15/2024; patient was essentially weaned off the vent the day prior his level of sensorium appears to be back to baseline ? 09/16/2024; nursing staff reports intermittent delirium ? 09/18/2024; patient back on the vent ? 09/19/2024; patient currently on nasal cannula much more interactive ? 09/21/2024; back to his baseline 3. Acute mechanical fall with left femoral neck fracture ? Patient underwent surgical repair on 09/09/2024 4. Bronchitis pneumonia with Morganella morganii sp morgani ? Patient was treated with meropenem prescription written for 7 more days of antibiotic on discharge 4. Acute kidney injury ? Patient had been empirically started on vancomycin and Zosyn do suspect drug-induced nephritis. Offending medications discontinued. Monitoring response to therapy with daily BMP.With patient kidney function continues to worsen consult was placed to nephrology ? 09/14/2024; ordered kidney ultrasound to rule out obstructive uropathy. Patient creatinine 1.9 this a.m. repeat labs ordered in a.m. ? 09/15/2024; creatinine down to 1.8 ? 09/16/2024; no change in patient kidney function ? 09/17/2024; no change in kidney function ? 09/18/2024; creatinine down to 1.5 BUN however remains elevated at 60 ? 09/22/2024; TERRENCE had resolved at the time of discharge 5. Anemia ? Secondary to chronic disorder monitoring H&H and transfuse if patient becomes symptomatic or hemoglobin falls below 7 6. Acute on chronic congestive heart failure with preserved ejection fraction ? Echo obtained on 07/22/2024 demonstrated EF of 55% with PASP of 5035 mmHg. Patient did receive Lasix 7. Paroxysmal A-fib ? Patient is on on sotalol as well as systemic anticoagulation with apixaban.. Home medications continued ? 09/21/2024; patient heart rate remains variable we will continue with current treatment regimen including sotalol while keeping close eye on his heart rate given the propensity to drop to the high 40s 8. 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 Patient has significant complications including restrictive lung disease 9. Depression ? Patient is on venlafaxine, plan is to resume once off the event 10. Central sleep apnea ? Patient uses BiPAP at night will resume when patient is extubated 11 Chronic hypoxic and hypercapnic respiratory failure ? Patient is on continuous home oxygen during the day 12. BPH with lower urinary obstructive symptoms - Patient treated with tamsulosin, continued 13. Hypokalemia - Potassium this a.m. is 3.4 corrected per protocol, repeat labs ordered for monitoring unit. Also added magnesium level for a.m. ? 09/14/2024; patient potassium remains low additional replacement given repeat labs ordered for a.m. ? 09/22/2024; potassium down to 3.1 additional replacement given 14. Essential hypertension ? Patient blood pressure control remains labile we will continue with monitoring and adjust medications if warranted 15. DVT prophylaxis ? On apixaban 16. Hypernatremia ? Adjusted patient IV fluid, repeated BMP in a.m. ? 09/19/2024; patient sodium levels down to 138 ? 09/20/2024; patient sodium levels up to 157 on D5W and ordered BMP every 4 ? 09/21/2024;Sodium level had dropped to 143 as of 09/20/20242056. Repeat labs ordered for subsequent eval 17. Hyperkalemia ? Secondary to potassium supplementation adjusted patient IV fluids and discontinued potassium supplementation. Will continue to monitor continuously until. Repeat potassium levels ordered in a.m. ? 09/20/2024; hyperkalemia resolved 18. Hypophosphatemia ? Corrected per protocol 19. Physical deconditioning ? Requested for PT OT eval and social services technician to assist with discharge planning CODE STATUS DNR CCA during Allergies/Procedures Done in Hospital Allergies metronidazole (From Flagyl) Adverse Reaction (Verified 09/04/24 23:42) Nausea/Vom/Diarrhea VOMITING Type of Care/Length of Stay Estimated LOS: Convalescent Care Less Than 30 days Type of Care Needed: Skilled Rehab Potential: Fair Prognosis: Fair Additional Orders/Day of Discharge Day of Discharge: 09/22/24 Dietary and Speech Recommendations Dietitian Recommendations/Changes: When medically able, rec Cardiac diet - consistency per PHOTO TUBE ASSEMBLER. Continue to follow and monitor for changes in pt nutritional status and make additional rec as indicated. Discharge Plan Admission Admit Date/Time: 09/05/24 05:29 Attending Provider: Familia Michel Primary Care Provider: Lius Medina Consulting Providers: Cecy Madera; Lorenzo Kitchen; Chiquita Stewart; James Rivera III Discharge Orders/Prescriptions Prescriptions: New buspirone 5 mg Tablet 10 mg PO BID Qty: 0 0RF albuterol sulfate 2.5 mg /3 mL (0.083 %) Solution For Nebulization 2.5 mg inhalation Q2H PRN PRN (Reason: SOB &/OR WHEEZING) Qty: 0 0RF meropenem 1 gram Recon Soln 1 g IV Q12 7 Days Qty: 14 0RF oxycodone 5 mg Tablet 5 mg PO Q6H PRN PRN (Reason: Pain Score 1-10) Qty: 0 0RF potassium, sodium phosphates 280-160-250 mg Powder In Packet 1 packet PO BID Qty: 0 0RF acetaminophen 650 mg/20.3 mL Solution 650 mg PO Q6H PRN PRN (Reason: Pain 1-10 Or Fever) Qty: 0 0RF Continued polyethylene glycol 3350 [Miralax] 17 gram/dose powder 8.5 g PO .COMPLEX PRN (Reason: constipation) Rx Instructions: 8.5 grams orally every other day with dinner; PRN; sotalol 80 mg tablet 80 mg PO BID Qty: 180 3RF Eliquis 5 mg tablet 5 mg PO BID Qty: 180 3RF cyanocobalamin (vitamin B-12) 500 mcg tablet 500 mcg PO DAILY tamsulosin 0.4 MG capsule 0.4 mg PO BID venlafaxine 75 mg capsule,extended release 24hr 75 mg PO DAILY fluticasone propionate 50 mcg/actuation [place],Suspension 1 spray NASAL BID 30 Days Qty: 16 0RF omeprazole 40 mg capsule,delayed release(DR/EC) 40 mg PO QDAY 30 Days Qty: 30 0RF Rx Instructions: take 30 minutes before breakfast every morning losartan 50 mg Tablet 50 mg PO QHS Qty: 0 0RF Discontinued acetaminophen 500 mg Tablet 1,000 mg PO QHS Qty: 0 0RF Referrals / Follow Up: Luis Medina MD [Primary Care Provider] - Disposition Disposition (needs filled in before D/C Order can be placed): [facility] Facility (1) Closed fracture of neck of left femur Qualifiers: Encounter type: initial encounter Qualified Code(s): S72.002A - Fracture of unspecified part of neck of left femur, initial encounter for closed fracture
[2024-09-22] MEDS: Meropenem 1 GM in 0.9% Normal Saline (100mL MB+) 100 ML IV (11:24)
--- NOTE | 2024-09-22 11:25 | PCM.DC.SUM ---
Providers Date of Admission: 09/05/24 Date of Discharge: 09/22/24 Primary Care Physician: Dr. Luis Medina MD Consultations 09/05/24 05:57 Consult: Pitching Coach / Pulmonary Medicine Routine Consulting Provider: Intensivists/Pulmonary Med Reason for Consult: Type 2 Respiratory failure EMERGENT Consult: No MD Notified: Yes Date Notified: 09/05/24 Time Notified: 06:18 Method of Notification: Text Consult: Orthopedics Routine Consulting Provider: James Rivera III Reason for Consult: Femoral neck fracture EMERGENT Consult: Yes MD Notified: Yes Date Notified: 09/05/24 Time Notified: 05:57 Method of Notification: ED Physician Initiated 09/13/24 10:26 Consult: Nephrology Routine Consulting Provider: Chiquita Stewart Reason for Consult: Terrence EMERGENT Consult: No Notified: Yes Date Notified: 09/13/24 Time Notified: 10:26 Method of Notification: Answering Service 09/19/24 14:41 Consult: Gastroenterology Routine Consulting Provider: [facility] Reason for Consult: Esophageal dysphagia EMERGENT Consult: No Notified: Yes Date Notified: 09/19/24 Time Notified: 14:41 Method of Notification: Text Reason For Visit: FALL Diagnosis Discharge Diagnosis (1) Closed fracture of neck of left femur: Status: Acute Code(s): S72.002A - Fracture of unspecified part of neck of left femur, initial encounter for closed fracture Qualifiers: Encounter type: initial encounter Qualified Code(s): S72.002A - Fracture of unspecified part of neck of left femur, initial encounter for closed fracture Plan Patient is a 79-year-old gentleman with 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 Intubated in the ED due to metabolic encephalopathy secondary to hypercapnia. Patient subsequently underwent left femoral neck fracture repair on 09/09/2024 1. Acute on chronic hypoxic and hypercapnic respiratory failure ? Secondary to restrictive lung disease. Patient presented with altered mental status and elevated pCO2 patient was intubated and subsequently admitted to the intensive care unit. Vent management deferred to education research analyst/critical care ? 09/14/2024; patient seen remains on the vent patient continues to spike fevers subsequently ordered urine culture and urinalysis with reflex culture, blood culture, checks x-ray, COVID assay as well as viral respiratory panel ? 09/15/2024;Patient was weaned off the vent the day prior subsequently placed on AVAPS and still remains on that attempt to wean patient off AVAPS so far unsuccessful ? 09/16/2024; patient has been weaned down to nasal cannula ? 09/18/2024;Patient was reintubated after he was found to be significantly hypercapnic once off the BiPAP. Case was discussed with Dr Garcia with pulmonology plan is have a family discussion regarding options including possible trach ? 09/19/2024 Patient was successfully weaned off the vent. Family wishes. CODE STATUS was changed to DNR CCA DO NOT INTUBATE. Patient has since tolerated intermittent BiPAP on and off. Much more interactive and coherent this morning. ? 09/20/2024; patient remains on supplemental oxygen plan is to transfer from the ICU to the progressive care unit ? 09/21/2024; patient on 3 L flow per minute. ? 09/23/2019 patient was discharged to the transitional care unit on 3 L flow of oxygen continuously and BiPAP 12/ 6 at night 2. Acute metabolic encephalopathy ? Secondary to above 09/14/2024; a complete assessment will be performed once patient is off the vent ? 09/15/2024; patient was essentially weaned off the vent the day prior his level of sensorium appears to be back to baseline ? 09/16/2024; nursing staff reports intermittent delirium ? 09/18/2024; patient back on the vent ? 09/19/2024; patient currently on nasal cannula much more interactive ? 09/21/2024; back to his baseline 3. Acute mechanical fall with left femoral neck fracture ? Patient underwent surgical repair on 09/09/2024 4. Bronchitis pneumonia with Morganella morganii sp morgani ? Patient was treated with meropenem prescription written for 7 more days of antibiotic on discharge 4. Acute kidney injury ? Patient had been empirically started on vancomycin and Zosyn do suspect drug-induced nephritis. Offending medications discontinued. Monitoring response to therapy with daily BMP.With patient kidney function continues to worsen consult was placed to nephrology ? 09/14/2024; ordered kidney ultrasound to rule out obstructive uropathy. Patient creatinine 1.9 this a.m. repeat labs ordered in a.m. ? 09/15/2024; creatinine down to 1.8 ? 09/16/2024; no change in patient kidney function ? 09/17/2024; no change in kidney function ? 09/18/2024; creatinine down to 1.5 BUN however remains elevated at 60 ? 09/22/2024; TERRENCE had resolved at the time of discharge 5. Anemia ? Secondary to chronic disorder monitoring H&H and transfuse if patient becomes symptomatic or hemoglobin falls below 7 6. Acute on chronic congestive heart failure with preserved ejection fraction ? Echo obtained on 07/22/2024 demonstrated EF of 55% with PASP of 5035 mmHg. Patient did receive Lasix 7. Paroxysmal A-fib ? Patient is on on sotalol as well as systemic anticoagulation with apixaban.. Home medications continued ? 09/21/2024; patient heart rate remains variable we will continue with current treatment regimen including sotalol while keeping close eye on his heart rate given the propensity to drop to the high 40s 8. 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 Patient has significant complications including restrictive lung disease 9. Depression ? Patient is on venlafaxine, plan is to resume once off the event 10. Central sleep apnea ? Patient uses BiPAP at night will resume when patient is extubated 11 Chronic hypoxic and hypercapnic respiratory failure ? Patient is on continuous home oxygen during the day 12. BPH with lower urinary obstructive symptoms - Patient treated with tamsulosin, continued 13. Hypokalemia - Potassium this a.m. is 3.4 corrected per protocol, repeat labs ordered for monitoring unit. Also added magnesium level for a.m. ? 09/14/2024; patient potassium remains low additional replacement given repeat labs ordered for a.m. ? 09/22/2024; potassium down to 3.1 additional replacement given 14. Essential hypertension ? Patient blood pressure control remains labile we will continue with monitoring and adjust medications if warranted 15. DVT prophylaxis ? On apixaban 16. Hypernatremia ? Adjusted patient IV fluid, repeated BMP in a.m. ? 09/19/2024; patient sodium levels down to 138 ? 09/20/2024; patient sodium levels up to 157 on D5W and ordered BMP every 4 ? 09/21/2024;Sodium level had dropped to 143 as of 09/20/20242056. Repeat labs ordered for subsequent eval 17. Hyperkalemia ? Secondary to potassium supplementation adjusted patient IV fluids and discontinued potassium supplementation. Will continue to monitor continuously until. Repeat potassium levels ordered in a.m. ? 09/20/2024; hyperkalemia resolved 18. Hypophosphatemia ? Corrected per protocol 19. Physical deconditioning ? Requested for PT OT eval and social security specialist to assist with discharge planning CODE STATUS DNR CCA during Medications at Discharge Home Medications tamsulosin 0.4 mg capsule 0.4 mg PO BID prostate 02/03/20 venlafaxine 75 mg capsule,extended release 24 hr 75 mg PO DAILY MOOD 05/31/22 cyanocobalamin (vitamin B-12) 500 mcg tablet 500 mcg PO DAILY supplement 07/10/24 losartan 50 mg tablet 50 mg PO QHS BP #0 tabs 07/28/24 fluticasone propionate 50 mcg/actuation nasal spray,suspension 1 spray NASAL BID 30 days #16 grams 08/18/24 omeprazole 40 mg capsule,delayed release 40 mg PO QDAY 30 days #30 caps 08/21/24 polyethylene glycol 3350 17 gram/dose oral powder (Miralax) 8.5 g PO .COMPLEX PRN constipation 09/02/24 apixaban 5 mg tablet (Eliquis) 5 mg PO BID #180 tabs 09/04/24 sotalol 80 mg tablet 80 mg PO BID #180 tabs 09/04/24 acetaminophen 650 mg/20.3 mL oral solution 650 mg (20.3 mL) PO Q6H PRN PRN Pain 1-10 Or Fever #0 mL 09/22/24 albuterol sulfate 2.5 mg/3 mL (0.083 %) solution for nebulization 2.5 mg (3 mL) inhalation Q2H PRN PRN SOB &/OR WHEEZING #0 mL 09/22/24 buspirone 5 mg tablet 10 mg (2 x 5 mg) PO BID #0 tabs 09/22/24 meropenem 1 gram intravenous solution 1 g IV Q12 7 days #14 ea 09/22/24 oxycodone 5 mg tablet 5 mg PO Q6H PRN PRN Pain Score 1-10 #0 tabs 09/22/24 potassium, sodium phosphates 280 mg-160 mg-250 mg oral powder packet 1 packet PO BID #0 ea 09/22/24 Hospital Course Summary of Care Provided Minutes Spent on Discharge: 40 Physical Exam Narrative GENERAL: Patient on nasal cannula HEENT: ET tube in place EYES; Anicteric, Normal Conjunctiva NECK; supple, normal thyroid, RESPIRATORY: Diminished to auscultation CARDIOVASCULAR: Regular S1 S2, GI: soft, normoactive bowel sounds, : No Renal angle tenderness; EXTREMITIES: No clubbing no cyanosis MUSCULOSKELETAL: no muscle wasting NEURO: No lateralizing signs SKIN: No Rash PSYCH; flat affect Weight / BMI Weight Weight: 70.4 kg Body Mass Index (BMI) 26.6 ABG / Lab / Microbiology Data 09/22/24 05:28 09/22/24 05:28 Laboratory: Laboratory Results - last 24 hr 09/21/24 13:06: POC Glucose 89 09/21/24 17:13: POC Glucose 106 09/22/24 04:34: POC Glucose 91 09/22/24 05:28: WBC 11.4 H, RBC 3.12 L, Hgb 9.5 L, Hct 29.0 L, MCV 92.9 D, MCH 30.4, MCHC 32.8, RDW Std Deviation 46.5 H, RDW Coeff of Larry 13.8, Plt Count 540 H, MPV 9.5, Immature Gran % (Auto) 1.700 H, Neut % (Auto) 74.4 H, Lymph % (Auto) 5.6 L, [place] % (Auto) 7.3, Eos % (Auto) 10.2 H, Baso % (Auto) 0.8, Absolute Neuts (auto) 8.4 H, Absolute Lymphs (auto) 0.64 L, Nucleated RBC % 0, Sodium 140, Potassium 3.1 L, Chloride 99, Carbon Dioxide 30.4, Anion Gap 10, BUN 19, Creatinine 1.04, Estim Creat Clear Calc 49.81 L, Est GFR (MDRD) Non-Af 74, BUN/Creatinine Ratio 17.8, Glucose 97, Calcium 8.8, Phosphorus 1.7 L, Magnesium 1.6 Microbiology: Microbiology 09/14/24 08:15 Blood Culture (Wb) - No Site/Description Given Blood Culture - Final No growth in 5 days. 09/14/24 08:15 Blood Culture (Wb) - Pic Blood Culture - Final No growth in 5 days. 09/17/24 13:35 Sputum, Induced/Lukens Gram Stain - Final 09/17/24 13:35 Sputum, Induced/Lukens Respiratory Culture - Final Morganella morganii sp morgani 09/14/24 08:15 Urine Catheter - Hendrix Urine Culture - Final Culture exhibits no growth. 09/14/24 08:28 Sputum, Tracheal Aspirate Gram Stain - Final 09/14/24 08:28 Sputum, Tracheal Aspirate Respiratory Culture - Final Presumptive C albicans 09/10/24 02:18 Blood Culture (Wb) - Left Forearm Blood Culture - Final No growth in 5 days. 09/14/24 08:40 Urine Catheter - Hendrix Legionella Antigen - Final 09/14/24 08:40 Urine Catheter - Hendrix Streptococcus pneumoniae Antigen (M - Final 09/14/24 08:28 Mucosa - Nose Coronavirus COVID-19 PCR - Final 09/14/24 08:28 Mucosa - Nose Influenza & RSV (PCR) - Final 09/10/24 02:20 Urine Catheter - Hendrix Urine Culture - Final Culture exhibits no growth. 09/10/24 02:49 Sputum, Expectorated/Coughed Gram Stain - Final 09/10/24 02:49 Sputum, Expectorated/Coughed Respiratory Culture - Final Presumptive C albicans 09/05/24 02:46 Blood Culture (Wb) - Anticubital Left Blood Culture - Final No growth in 5 days. 09/05/24 03:00 Blood Culture (Wb) - Left Hand Blood Culture - Final No growth in 5 days. 09/05/24 04:30 Sputum, Induced/Lukens Gram Stain - Final 09/05/24 04:30 Sputum, Induced/Lukens Respiratory Culture - Final Mixed normal respiratory rogelio. No Streptococcus pneumoniae, beta-hemolytic Streptococcus or Staphylococcus aureus isolated. 09/05/24 01:00 Urine, Clean Catch Urine Culture - Final Staphylococcus epidermidis D/C Instructions Discharge Diet: No restrictions Discharge Activity: Return to Normal Activity Call your doctor if you observe: Fever of 101 or Higher, Shortness of breath, Fainting spells and Chest pain DC O2, CPAP, BIPAP Needs Home O2 Discharge instructions: Yes Type of respiratory needs?: Oxygen Oxygen frequency: Continuous Continuous oxygen liters per minute: 3 and BiPAP BiPAP instructions: At night 12/6 DC home with Oxygen: Yes Home O2 MD Review: I have reviewed the oxygen testing, and the patient qualifies for home oxygen equipment and portability. The patient is mobile in the home and the community. Meaningful Use Info Meaningful Use Meaningful Use Diagnoses (Choose all that apply): CHF CHF ALFREDA/ARB ordered at discharge?: Yes Documented LVEF (%): 55 Ischemic Stroke Statin Dosing Therapy Reference: STATIN DOSE THERAPY REFERENCE: * Patients > 75 years receive moderate or high dose statin therapy. * Patients 75 years or YOUNGER should receive HIGH intensity statin dose unless contraindicated. You will be required to document reason for non-treatment if statin daily dose does not meet guidelines. HIGH DOSE STATIN THERAPY DAILY Atorvastatin > than or = to 40 mg Rosuvastatin > than or = to 20 mg Amlodipine + Atorvastatin > than or = to 2.5/40 mg Ezetimibe + Simvastatin 10/80 mg Simvastatin 80mg Discharge Plan Admission Admit Date/Time: 09/05/24 05:29 Attending Provider: Familia Michel Primary Care Provider: Luis Medina Consulting Providers: Cecy Madera; Lorenzo Kitchen; Chiquita Stewart; James Rivera III Discharge Orders/Prescriptions Prescriptions: New buspirone 5 mg Tablet 10 mg PO BID Qty: 0 0RF albuterol sulfate 2.5 mg /3 mL (0.083 %) Solution For Nebulization 2.5 mg inhalation Q2H PRN PRN (Reason: SOB &/OR WHEEZING) Qty: 0 0RF meropenem 1 gram Recon Soln 1 g IV Q12 7 Days Qty: 14 0RF oxycodone 5 mg Tablet 5 mg PO Q6H PRN PRN (Reason: Pain Score 1-10) Qty: 0 0RF potassium, sodium phosphates 280-160-250 mg Powder In Packet 1 packet PO BID Qty: 0 0RF acetaminophen 650 mg/20.3 mL Solution 650 mg PO Q6H PRN PRN (Reason: Pain 1-10 Or Fever) Qty: 0 0RF Continued polyethylene glycol 3350 [Miralax] 17 gram/dose powder 8.5 g PO .COMPLEX PRN (Reason: constipation) Rx Instructions: 8.5 grams orally every other day with dinner; PRN; sotalol 80 mg tablet 80 mg PO BID Qty: 180 3RF Eliquis 5 mg tablet 5 mg PO BID Qty: 180 3RF cyanocobalamin (vitamin B-12) 500 mcg tablet 500 mcg PO DAILY tamsulosin 0.4 MG capsule 0.4 mg PO BID venlafaxine 75 mg capsule,extended release 24hr 75 mg PO DAILY fluticasone propionate 50 mcg/actuation [place],Suspension 1 spray NASAL BID 30 Days Qty: 16 0RF omeprazole 40 mg capsule,delayed release(DR/EC) 40 mg PO QDAY 30 Days Qty: 30 0RF Rx Instructions: take 30 minutes before breakfast every morning losartan 50 mg Tablet 50 mg PO QHS Qty: 0 0RF Discontinued acetaminophen 500 mg Tablet 1,000 mg PO QHS Qty: 0 0RF Referrals / Follow Up: Luis Medina MD [Primary Care Provider] - Disposition Disposition (needs filled in before D/C Order can be placed): [facility]ustodial Facility Charges/Coding Visit Charges Inpatient E&M: 08015 Disch Hosp >30min
[2024-09-22 12:08] LABS: Bedside Glucose 93 mg/dL (74-106)
[2024-09-22] MEDS: hydrALAZINE 20 MG/ML Vial 10 MG IV (14:01)
[2024-09-22] MEDS: 0.9% Saline Lock 10 ML Syringe IV (14:06)
== END 2024-09-22 14:23 | disposition skilled nursing facility (03) | DRG 521 ==
LOC: ED 09-05 04:54 → ICU 09-05 05:35 → PCU 09-22 11:20
PROVIDERS: Family Medicine; Internal Medicine; Internal Medicine Critical Care Medicine; Internal Medicine Pulmonary Disease; Orthopaedic Surgery; Admitting Provider Internal Medicine; Emergency Provider Emergency Medicine; PCP Family Medicine; Visit Provider Internal Medicine
PROC: 0SRS0JA Replacement of Left Hip Joint, Femoral Surface with Synthetic Substitute, Uncemented, Open Approach (ICD-10-PCS; CPT 27125; principal; 2024-09-09 13:30)
DX: S72.002A Fracture of unspecified part of neck of left femur, initial encounter for closed fracture (principal); J96.22 Acute and chronic respiratory failure with hypercapnia; N17.0 Acute kidney failure with tubular necrosis; I50.33 Acute on chronic diastolic (congestive) heart failure; G93.41 Metabolic encephalopathy; J18.0 Bronchopneumonia, unspecified organism; J96.21 Acute and chronic respiratory failure with hypoxia; E87.29 Other acidosis; R57.9 Shock, unspecified; E87.0 Hyperosmolality and hypernatremia; J90 Pleural effusion, not elsewhere classified; N13.8 Other obstructive and reflux uropathy; N39.0 Urinary tract infection, site not specified; I11.0 Hypertensive heart disease with heart failure; F32.A Depression, unspecified; I48.0 Paroxysmal atrial fibrillation; G14 Postpolio syndrome; G47.31 Primary central sleep apnea; M41.9 Scoliosis, unspecified; E78.5 Hyperlipidemia, unspecified; G47.33 Obstructive sleep apnea (adult) (pediatric); K21.9 Gastro-esophageal reflux disease without esophagitis; M19.90 Unspecified osteoarthritis, unspecified site; F41.9 Anxiety disorder, unspecified; E87.6 Hypokalemia; E87.5 Hyperkalemia; J98.4 Other disorders of lung; M41.54 Other secondary scoliosis, thoracic region; G47.34 Idiopathic sleep related nonobstructive alveolar hypoventilation; W18.30XA Fall on same level, unspecified, initial encounter; E83.39 Other disorders of phosphorus metabolism; B37.9 Candidiasis, unspecified; I49.3 Ventricular premature depolarization; Z79.01 Long term (current) use of anticoagulants; Z82.49 Family history of ischemic heart disease and other diseases of the circulatory system; Z79.2 Long term (current) use of antibiotics; N40.0 Benign prostatic hyperplasia without lower urinary tract symptoms; M99.02 Segmental and somatic dysfunction of thoracic region; T50.905A Adverse effect of unspecified drugs, medicaments and biological substances, initial encounter; R50.9 Fever, unspecified; T41.295A Adverse effect of other general anesthetics, initial encounter; N40.1 Benign prostatic hyperplasia with lower urinary tract symptoms; Z66 Do not resuscitate; Z87.81 Personal history of (healed) traumatic fracture; Z98.890 Other specified postprocedural states; Z98.1 Arthrodesis status; Z68.26 Body mass index [BMI] 26.0-26.9, adult; B96.4 Proteus (mirabilis) (morganii) as the cause of diseases classified elsewhere; N14.19 Nephropathy induced by other drugs, medicaments and biological substances; Z86.12 Personal history of poliomyelitis; R53.81 Other malaise; B95.8 Unspecified staphylococcus as the cause of diseases classified elsewhere; Z99.81 Dependence on supplemental oxygen
CPT/HCPCS: 31500; 31720; 36415; 36569; 36600; 51702; 70450; 71045; 73502; 74230; 80048; 80076; 80202; 81001; 82436; 82550; 82570; 82803; 82962; 83605; 83690; 83735; 83880; 84100; 84133; 84145; 84300; 84443; 84478; 85014; 85018; 85025; 87040; 87070; 87077; 87086; 87088; 87186; 87205; 87449; 87631; 87635; 87641; 88307; 88311; 92526; 92610; 92611; 93005; 94002; 94003; 94640; 94660; 94668; 94762; 95819; 97162; 97166; 97530; 97535; 97802; 97803; 99252; 99285; C1776; J2185; J2997; P9047; A4216; G0463; J1938; J2405

== ENCOUNTER 2024-09-22 14:56 | Inpatient (IN) | payer MEDICARE, SELFPAY ==
[2024-09-22 16:00] VITALS: BP 108/67; PULSE 69; RESP 20; TEMP 37.2; O2SAT 96
--- NOTE | 2024-09-22 16:27 | CPS ---
Pt placed on home CPAP unit at this time
[2024-09-22 17:27] VITALS: BP 157/75; PULSE 70; RESP 26; TEMP 36.6; O2SAT 96
--- NOTE | 2024-09-22 17:40 | RAD_ITS ---
PROCEDURE: CHEST 1 VIEW (PORTABLE) 09/22/2024 REASON FOR EXAM: SOB TECHNIQUE: Frontal view of the chest. COMPARISON: 09/21/2024 FINDINGS: Hardware: right sided PICC with tip overlying the right atrium. Heart: Cardiac and mediastinal contours are stable. Atherosclerotic aortic arch Lungs: Persist right lower lobe patchy opacities. Probable small right pleural effusion. The left lung is grossly unremarkable. Bones: Stable severe scoliosis with deformity of the chest. RAD/Chest 1 View (Portable) IMPRESSION: Grossly unchanged exam. Reading Location: [id number]
--- NOTE | 2024-09-22 19:21 | CON.PCM.GI_ITS ---
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 He was emergently intubated in the ED due to metabolic encephalopathy secondary to hypercapnia. Patient subsequently underwent left femoral neck fracture repair on 09/09/2024. I have been asked to see him due to esophageal dysphagia. He is mostly having solid food dysphagia and some odynophagia with liquids. He takes Eliquis 5 mg twice daily due to atrial fibrillation. [facility] Medical History 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 Wears glasses Cancer Depression Claustrophobia Anxiety Alcohol use Redness of skin Uses crutches Arthritis Bladder disease Back pain History of edema History of diverticulitis Post-polio syndrome Non-smoker BiPAP (biphasic positive airway pressure) dependence History of CHF (congestive heart failure) On home oxygen therapy History of pain when walking History of stress test History of echocardiogram Chronic respiratory failure with hypoxia and hypercapnia On mechanically assisted ventilation Post-poliomyelitis syndrome Acute on chronic respiratory failure with hypoxia and hypercapnia Hypertension Lumbar radicular pain Degenerative scoliosis Scoliosis Segmental dysfunction of thoracic region Home Medications ?Medication ?Instructions ?Recorded ?Last Taken ?Type tamsulosin 0.4 mg capsule 0.4 mg PO BID prostate 02/0208/09/24 History venlafaxine 75 mg capsule,extended 75 mg PO DAILY MOOD 05/31/22 08/09/24 History release 24 hr cyanocobalamin (vitamin B-12) 500 500 mcg PO DAILY sup plement 07/10/24 07/28/24 History mcg tablet losartan 50 mg tablet 50 mg PO QHS BP #0 tabs 11/14 Unknown Rx fluticasone propionate 50 1 spray NASAL BID respirator y 30 08/18/24 Unknown Rx mcg/actuation nasal days #16 grams spray,suspension omeprazole 40 mg capsule,delayed 40 mg PO QDAY GI 30 d ays #30 caps 08/21/24 Unknown Rx release polyethylene glycol 3350 17 8.5 g PO .COMPLEX PRN cons tipation 09/02/24 Unknown History gram/dose oral powder (Miralax) apixaban 5 mg tablet (Eliquis) 5 mg PO BID anticoagula nt #180 tabs 09/04/24 Unknown Rx sotalol 80 mg tablet 80 mg PO BID heart health #1 80 tabs 09/04/24 Unknown Rx acetaminophen 650 mg/20.3 mL oral 650 mg (20.3 mL) PO Q6H PRN PRN 09/22/24 Unknown Rx solution Pain 1-10 Or Fever #0 mL albuterol sulfate 2.5 mg/3 mL 2.5 mg (3 mL) inhalation Q2H PRN 09/22/24 Unknown Rx (0.083 %) solution for nebulization PRN SOB &/OR WHEEZ ING #0 mL buspirone 5 mg tablet 10 mg (2 x 5 mg) PO BID mood #0 09/22/24 Unknown Rx tabs meropenem 1 gram intravenous 1 g IV Q12 infection 7 da ys #14 ea 09/22/24 Unknown Rx solution oxycodone 5 mg tablet 5 mg PO Q6H PRN PRN Pain Sco re 09/22/24 Unknown Rx 1-10 #0 tabs potassium, sodium phosphates 280 1 packet PO BID suppl ement #0 ea 09/22/24 Unknown Rx mg-160 mg-250 mg oral powder packet Allergy/AdvReac Type Severity Reaction Status Date / Time metronidazole (From Flagyl) AdvReac Nausea/Vom/ Verified 09/04/24 23:42 Diarrhea Family History Father Myocardial infarction Heart disease Mother Shy-Drager syndrome Other CVA (cerebral vascular accident) Surgical History History of selective injection of anesthetic agent around lumbar nerve root Hx of lithotripsy History of cardiac catheterization Hx of cystoscopy H/O adenoidectomy History of uvulectomy Hip fracture, right History of open reduction and internal fixation (ORIF) procedure Right tibial fracture H/O spinal fusion Social History household members: spouse housing: house Smoking Status: Never smoker substance use type: does not use ROS Constitutional Constitutional: Denies fatigue, fever(s), poor appetite, weight gain or weight loss Gastrointestinal Gastrointestinal: Denies belching, bloating, change in bowel habits, change in stool character, chewing difficulty, coffee ground emesis, constipation, cramping, diarrhea, dyspepsia, dysphagia, early satiety, excessive flatus, fecal incontinence, heartburn, hematemesis, hematochezia, hemorrhoids, loose stools, melena, nausea, odynophagia, rectal bleeding, tenesmus, vomiting or weight changes Physical Exam Narrative GENERAL: Patient on nasal cannula HEENT: ET tube in place EYES; Anicteric, Normal Conjunctiva NECK; supple, normal thyroid, RESPIRATORY: Diminished to auscultation CARDIOVASCULAR: Regular S1 S2, GI: soft, normoactive bowel sounds, : No Renal angle tenderness; EXTREMITIES: No clubbing no cyanosis MUSCULOSKELETAL: no muscle wasting NEURO: No lateralizing signs SKIN: No Rash PSYCH; flat affect Imaging Radiology Impression Chest X-Ray 09/22/24 17:40 IMPRESSION: Grossly unchanged exam. Reading Location: [facility] Assessment & Plan Assessment/Plan (1) TERRENCE (acute kidney injury): (2) Closed fracture of neck of left femur: QUALIFIERS: Encounter type: initial encounter Qualified Code(s): S72.002A - Fracture of unspecified part of neck of left femur, initial encounter for closed fracture (3) Dysphagia: PLAN: Plan This is a 79-year-old male with past medical history significant for A-fib, hypertension, BPH, depression, 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 Found to have left hip fracture. Patient underwent surgical repair on September 09. He is currently having esophageal dysphagia. Differential diagnosis for esophageal dysphagia does include Raven esophagitis, or esophagitis, esophageal stricture. He should undergo an upper endoscopy divide upper GI tract because he needs to be on antiarrhythmics and anticoagulants. Charges/Coding Visit Charges Inpatient E&M: 29464 [facility] Init L2
--- NOTE | 2024-09-22 20:39 | HP.PCM_ITS ---
HPI - General General Date of Admission: 09/22/24 Date of Service: 09/22/24 Chief Complaint: Here for rehabilitation. HPI Narrative BERNARDA JOSEPH, is a 79 Male who presents with followin09/05/2024 [facility] ED with syncope. Syncope, left hip pain. Intubated for acute respiratory failure with hypoxia. Rocephin iv for uti. X-ray showed left hip fracture. 09/05/2024 Admit [facility] ICU. Intubated for acute respiratory failure 2/2 restrictive lung disease 2/2 polio. Hold Eliquis, consult Ortho for left hip fracture. 09/09/2024 Dr. Quinones performed left hip hemiarthroplasty. 09/10/2024 Intubated, fever, pancultures, iv antibiotics. Zosyn, Vancomycin iv, cultures pending. 09/11/2024 Intubated, sputum rare martita, micafungin started. Resume Eliquis for atrial fibrillation. 09/14/2023 Intubated. Acute kidney injury 2/2 to Vancomycin, Zosyn. Vancomycin, Zosyn stopped. 09/14/2024 On vent, fever, fever workup. Creatinine 1.9. 09/15/2024 Off vent, on AVAPS, unable to wean off AVAPS. Encephalopathy resolved. Creatinine 1.8. 09/16/2024 Weaned off BiPAP, Oxygen 2 liters per nasal cannula, confused. Intermittent delirium. Replace potassium. 09/17/2024 BiPAP, K 3.1, sodium 148. Kidney function stable. Lasix for acute on chronic HFpEF. 09/18/2024 Reintubated for hypercapnea. Consider tracheostomy. Creatinine 1.5, BUN 60. 09/19/2024 Weaned off vent, intermittent BiPAP. More interactive. Sodium improved to 138. 09/20/2024 Oxygen, delirium improving. 09/21/2024 HR 40 to 60, decrease D5W, feels congested. Oxygen 3 liters, delirium resolved. 09/22/2024 Admit to TCU with debility, here for rehabilitation, strengthening, prior to discharge home with . Resident dependent on BiPAP. I asked resident regarding reintubation, he declined reintubation, knowing it may lead to his . I asked resident if he was ready to give up and be comfort care, he is NOT ready to give up. 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 Wears glasses Cancer Depression Claustrophobia Anxiety Alcohol use Redness of skin Uses crutches Arthritis Bladder disease Back pain History of edema History of diverticulitis Post-polio syndrome Non-smoker BiPAP (biphasic positive airway pressure) dependence History of CHF (congestive heart failure) On home oxygen therapy History of pain when walking History of stress test History of echocardiogram Chronic respiratory failure with hypoxia and hypercapnia On mechanically assisted ventilation Post-poliomyelitis syndrome Acute on chronic respiratory failure with hypoxia and hypercapnia Hypertension Lumbar radicular pain Degenerative scoliosis Scoliosis Segmental dysfunction of thoracic region Home Medications ?Medication ?Instructions ?Recorded ?Last Taken ?Type tamsulosin 0.4 mg capsule 0.4 mg PO BID prostate 02/0208/09/24 History venlafaxine 75 mg capsule,extended 75 mg PO DAILY MOOD 05/31/22 08/09/24 History release 24 hr cyanocobalamin (vitamin B-12) 500 500 mcg PO DAILY sup plement 07/10/24 07/28/24 History mcg tablet losartan 50 mg tablet 50 mg PO QHS BP #0 tabs 04/0 11/14 Unknown Rx fluticasone propionate 50 1 spray NASAL BID respirator y 30 08/18/24 Unknown Rx mcg/actuation nasal days #16 grams spray,suspension omeprazole 40 mg capsule,delayed 40 mg PO QDAY GI 30 d ays #30 caps 08/21/24 Unknown Rx release polyethylene glycol 3350 17 8.5 g PO .COMPLEX PRN cons tipation 09/02/24 Unknown History gram/dose oral powder (Miralax) apixaban 5 mg tablet (Eliquis) 5 mg PO BID anticoagula nt #180 tabs 09/04/24 Unknown Rx sotalol 80 mg tablet 80 mg PO BID heart health #1 80 tabs 09/04/24 Unknown Rx acetaminophen 650 mg/20.3 mL oral 650 mg (20.3 mL) PO Q6H PRN PRN 09/22/24 Unknown Rx solution Pain 1-10 Or Fever #0 mL albuterol sulfate 2.5 mg/3 mL 2.5 mg (3 mL) inhalation Q2H PRN 09/22/24 Unknown Rx (0.083 %) solution for nebulization PRN SOB &/OR WHEEZ ING #0 mL buspirone 5 mg tablet 10 mg (2 x 5 mg) PO BID mood #0 09/22/24 Unknown Rx tabs meropenem 1 gram intravenous 1 g IV Q12 infection 7 da ys #14 ea 09/22/24 Unknown Rx solution oxycodone 5 mg tablet 5 mg PO Q6H PRN PRN Pain Sco re 09/22/24 Unknown Rx 1-10 #0 tabs potassium, sodium phosphates 280 1 packet PO BID suppl ement #0 ea 09/22/24 Unknown Rx mg-160 mg-250 mg oral powder packet Allergy/AdvReac Type Severity Reaction Status Date / Time metronidazole (From Flagyl) AdvReac Nausea/Vom/ Verified 09/04/24 23:42 Diarrhea Family History Father Myocardial infarction Heart disease Mother Shy-Drager syndrome Other CVA (cerebral vascular accident) Surgical History History of selective injection of anesthetic agent around lumbar nerve root Hx of lithotripsy History of cardiac catheterization Hx of cystoscopy H/O adenoidectomy History of uvulectomy Hip fracture, right History of open reduction and internal fixation (ORIF) procedure Right tibial fracture H/O spinal fusion Social History household members: spouse housing: house Smoking Status: Never smoker substance use type: does not use ROS Constitutional Constitutional: Reports weakness; Denies chills, fever(s) or weight gain ENT HEENT: Denies headache(s), nasal congestion or nasal discharge Cardiovascular Cardiovascular: Denies chest pain or palpitations Respiratory/Chest Respiratory/Chest: Reports shortness of breath at rest and shortness of breath with exertion; Denies cough or excessive phlegm production Gastrointestinal Gastrointestinal: Denies abdominal pain, nausea or vomiting Genitourinary Genitourinary: Denies dysuria Musculoskeletal Musculoskeletal: Denies joint pain or joint swelling Integumentary Integumentary: Denies rash or wounds Neurologic Neurologic: Denies focal weakness, numbness or tingling Psychiatric Psychiatric: Denies anxiety, auditory hallucinations, depression, homicidal ideation or suicidal ideation Vital Signs Vital Signs Vital Signs: 09/22/24 14:58 09/22/24 17:27 09/22/24 18:51 Temperature 97.9 F Temperature Source Oral Pulse Rate 70 Pulse Rhythm Irregular Pulse Strength Normal (2+) Respiratory Rate 26 H Respiratory Effort Short of Breath Labored Accessory Muscle Use Respiratory Depth Shallow Respiratory Pattern Tachypnea Blood Pressure 157/75 H Blood Pressure Mean 102 Blood Pressure Source Monitor Blood Pressure Position Semi-Fowlers Blood Pressure Location Right Forearm Pulse Ox 96 Oxygen Delivery Method CPAP Bi-pap Bi-pap Oxygen Flow Rate (L/min) 4 Physical Exam Const alert General Appearance: cooperative HEENT normocephalic Eyes PERRL and EOMs intact bilaterally Neck supple, no JVD and no carotid bruits Resp normal respiratory effort, normal air movement and clear to auscultation bilaterally Auscultation: diminished lung sounds Cardio regular rate and regular rhythm GI normal to inspection, nondistended, normoactive bowel sounds, non-tender and non-distended Extremity normal capillary refill General Extremity: Negative for edema Skin no rashes or lesions noted General Skin Exam: no breakdown Psych affect normal Appearance: appropriate Results Imaging Radiology Impression Chest X-Ray 09/22/24 17:40 IMPRESSION: Grossly unchanged exam. Reading Location: [facility] Assessment & Plan Assessment/Plan (1) Debility: (2) Syncope: (3) Closed left hip fracture: (4) Acute respiratory failure with hypercapnia: (5) Encephalopathy: (6) TERRENCE (acute kidney injury): (7) Hypernatremia: (8) Acute on chronic heart failure with preserved ejection fraction (HFpEF): (9) Insomnia: (10) Atrial fibrillation: (11) Vitamin B12 deficiency: (12) Restrictive lung disease: (13) History of poliomyelitis: (14) Essential (primary) hypertension: (15) BPH (benign prostatic hypertrophy): (16) Depression: PLAN: Plan 79 year old male with below past medical history hospitalized for syncope, left hip fracture, underwent left hip hemiarthroplasty 09/09/[address] Quinones, complicated by acute respiratory failure with hypercapnea requiring intubation x 2, acute kidney injury, hypernatremia, encephalopathy, acute on chronic HFpEF, admitted to TCU with debility, here for rehabiliation, strengthening, prior to discharge home with . * Debility - PT/OT. * Dysphagia - , Friend consulted. * Pain - Tylenol 650mg q6 prn, Oxycodone 5mg q6 prn. * Bowel - Miralax 8.5gm po qod prn. * Adult immunization - Administer pneumonia vaccine, covid vaccine, flu vaccine as appropriate. * DVT prophylaxis - on Eliquis. * Chronic respiratory failure with hypercapnea - BiPAP when asleep, and prn, resident does NOT want to be reintubated. * Pneumonia - Meropenem 1gm iv bid x 7 days. * Restrictive lung disease - Albuterol 2.5mg neb q2h prn. * Atrial fibrillation - Sotalol 80mg bid, Eliquis 5mg bid. * Vitamin B12 deficiency - B12 500mcg daily. * Allergic rhinitis - Flonase 1 spray nasal bid. * Hypertension - Sotalol 80mg bid, Losartan 50mg qhs. * Hypophosphatemia - K-Phos 1 packet bid. * GERD - Pantoprazole 40mg daily. * BPH - Tamsulosin 0.4mg bid. The following psychotropic medication was present on admission: Buspar 10mg bid. Psychotropic medication therapy is indicated for a diagnosis of: Anxiety. Based on my clinical evaluation, continuation of the medication is necessary at this time. Gradual dose reduction plan (select one): ____ GDR will be attempted. Will monitor patient symptoms and behaviors in response to GDR. __x__ GRD contraindicated. 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 The following psychotropic medication was present on admission: Venlafaxine XR 75mg daily. Psychotropic medication therapy is indicated for a diagnosis of: Major depression. Based on my clinical evaluation, continuation of the medication is necessary at this time. Gradual dose reduction plan (select one): ____ GDR will be attempted. Will monitor patient symptoms and behaviors in response to GDR. __x__ GRD contraindicated. Reason contraindicated: stable chronic skilled nursing use.
[2024-09-22] MEDS: Sotalol Hydrochloride 80 MG Tablet PO (21:05)
[2024-09-22] MEDS: busPIRone 5 MG Tablet 10 MG PO (21:16)
[2024-09-22] MEDS: APIXABAN 5 MG TABLET PO (21:17)
[2024-09-22] MEDS: Fluticasone 0.05% 1 SPRAY NASAL.SRY NASAL (21:17)
[2024-09-22] MEDS: Tamsulosin HCl 0.4 MG Capsule PO (21:17)
[2024-09-22] MEDS: Losartan Potassium 50 MG Tablet PO (21:17)
[2024-09-22] MEDS: Na Biphos/Potassium Phosphate PACKET 1 PACKET PO (21:19)
[2024-09-22] MEDS: Meropenem 1 GM in 0.9% Normal Saline (100mL MB+) 100 ML IV (21:35)
[2024-09-22] MEDS: 0.9% Normal Saline (250mL Bag) 250 ML 15 ML IV (21:35)
[2024-09-22] MEDS: 0.9% Saline Lock 10 ML Syringe IV (21:43)
[2024-09-23] VITALS (8 sets, daily range): BP systolic 149–173; BP diastolic 71–92; PULSE 64–72; RESP 18–20; TEMP 36.4; O2SAT 93–98
--- NOTE | 2024-09-23 02:51 | NURSING ---
PATIENT IS RESTLESS AND ATTEMPTING TO GET OUT OF BED. THIS NURSE PROVIDING EDUCATION LINOLEUM LAYER HELPER LIGHT, KEEPING CALL LIGHT WITHIN REACH. THIS NURSE AND RN REPOSITIONED PATIENT TO MAKE MORE COMFORTABLE. PATIENT CONTINUES TO BE NON COMPLIANT OF WEARING BIPAP THIS NURSE CONTINUED TO EDUCATE ON WEARING BIPAP AND REAPPLIED DEVICE. THIS NURSE PROVIDED DISTRACTION TECHNIQUES BY TURNING TV ON TO KEEP PATIENT ENGAGED / DISTRACTED. NOTIFIED RN, WRITTEN COMMUNICATION LEFT FOR . WILL CONTINUE TO MONITOR.
[2024-09-23 07:09] LABS: Absolute Neutrophil Count 8.7 X10^3/uL (2.0-7.7); Basophil# 0.13 X10^3/uL; Basophil% 1.1 % (0-1); Eosinophil# 1.38 X10^3/uL; Eosinophils% 11.8 % (0-5); Hematocrit 30.3 % (40-54); Hemoglobin 9.8 g/dL (13.0-16.5); Lymphocyte % 4.3 % (19-41); Mean Corp Hgb Conc 32.3 g/dL (32-36); Mean Corpuscular Hgb 30.2 pg (27.0-32.0); Mean Corpuscular Volume 93.5 fL (80-94); Monocyte# 0.88 X10^3/uL; Monocyte% 7.5 % (0-10); NRBC Flagged by Analyzer 0 % (0-5); Neutrophil # 8.67 X10^3/uL (2.7-7.7); Neutrophil % 73.9 % (47-70); POSITIVE DIFFERENTIAL YES; Platelet Count 478 K/mm3 (150-450); RBC Distribution Width CV 13.9 % (11.6-14.6); RBC Distribution Width SD 46.9 fl (35.1-43.9); Red Blood Count 3.24 M/mm3 (4.6-6.2); White Blood Count 11.7 K/mm3 (4.4-11.0)
[2024-09-23 07:47] LABS: Anion Gap 10 (5-15); BUN 14 mg/dL (4-19); BUN/Creat Ratio 15.1 RATIO (10-20); Calcium,Total 8.9 mg/dL (7.6-11.0); Carbon Dioxide 34.6 mmol/L (21.0-32.0); Chloride 99 mmol/L (98-108); Creatinine, Serum 0.93 mg/dL (0.70-1.20); EST Glomerular Filtration Rate 84 (>60); Glucose 106 mg/dL (70-99); Sodium Level 144 mmol/L (133-145)
[2024-09-23] MEDS: Potassium Chloride Oral Tablet 20 MEQ 40 MEQ PO (10:42)
[2024-09-23] MEDS: Losartan Potassium 50 MG Tablet PO (10:43)
[2024-09-23] MEDS: Meropenem 1 GM in 0.9% Normal Saline (100mL MB+) 100 ML IV ×2 (10:43→22:54)
[2024-09-23] MEDS: 0.9% Saline Lock 10 ML Syringe IV ×3 (10:51→22:49)
--- NOTE | 2024-09-23 11:21 | CASEMGMT ---
Social Work SW met with patient to complete initial assessment. Pt known to this worker from previous stay. Pt's brother at bedside and pt granted permission for brother to remain at bedside. SW educated to [facility] insurance with NRD 09/29 and continued stay is not guaranteed with each review; required to provide a 3-day notice. SW discussed in depth pt's wishes for code status. Pt voiced wishes to be a DNR-CC. SW notified nursing to change code status. SW discussed pt's current LOF and medical conditions, broached pt needing an alternative DC plan. Pt and brother agreed. Both stated [facility] would be their preference. SW to assist with DC plans as pt progresses. Both appreciative. SW will continue to follow for DC planning and support. Bárbara Perez [employer]IL[employer]
--- NOTE | 2024-09-23 11:55 | NURSING ---
Dr. Fitch updated on pts on BP of 173/85 Pulse 64. N.O. received to give x1 dose of 50mg of losartan now and increase PM dose to 100mg at QHS. Order read back. Dr. Vázquez also updated on pts BP and potassium of 3.0 let him know pt received Kdur and Losartan this am.
--- NOTE | 2024-09-23 12:00 | PHA.CONS_ITS ---
Documented by User: Yuliet Lowe 09/23/24 12:23 TCU RX Drug Regimen Review Subjective/Objective Subjective/Objective Subjective: TCU Admission. 79 YOM presented to the ER with syncope. Hospitalized for syncope, left hip fracture, underwent left hip hemiarthroplasty 09/09/[address] Quinones, complicated by acute respiratory failure with hypercapnea requiring intubation x 2, acute kidney injury, hypernatremia, encephalopathy, acute on chronic HFpEF. Admitted to TCU with debility for strengthening and rehabilitation. Objective: Allergies metronidazole (From Flagyl) Adverse Reaction (Verified 09/04/24 23:42) Nausea/Vom/Diarrhea VOMITING Current Medications Generic Name Dose Route Start Last Admin Trade Name Freq PRN Reason Stop Dose Admin Acetaminophen 650 mg 09/22/24 15:10 Acetaminophen 650 Mg/20 Ml Udc PO Q6H PRN PRN Pain 1-10 Or Fever Albuterol Sulfate 2.5 mg 09/22/24 15:10 Albuterol 2.5 Mg/3 Ml Vial.Neb. INHALATION Q2H PRN PRN SOB &/OR WHEEZING Apixaban 5 mg 09/22/24 22:00 09/23/24 11:03 Apixaban 5 Mg Tablet PO Not Given BID NIURKA Buspirone HCl 10 mg 09/22/24 22:00 09/23/24 11:03 Buspirone 5 Mg Tablet PO Not Given BID NIURKA Cyanocobalamin 500 mcg 09/23/24 10:00 09/23/24 11:04 Cyanocobalamin 500 Mcg Tablet PO Not Given DAILY NIURKA Fluticasone Propionate 1 spray 09/22/24 22:00 09/22/24 21:17 Fluticasone 0.05% 1 [place] Nasal.Sry NASAL 1 spray BID NIURKA Administration Meropenem 1 gm/ Sodium 120 mls @ 33 mls/hr 09/22/24 22:00 09/23/24 10:43 Chloride IV 09/29/24 22:01 33 mls/hr BID NIURKA Administration Sodium Chloride 250 mls @ 15 mls/hr 09/22/24 21:15 09/22/24 21:35 IV 15 mls/hr .[id number] PRN Administration Saline Flush Sodium Chloride 250 mls @ 15 mls/hr 09/22/24 21:15 IV .[id number] PRN Additional IVPB Infusion Losartan Potassium 100 mg 09/23/24 22:00 Losartan Potassium 100 Mg Tablet PO QHS [facility] Protocol Melatonin 10 mg 09/23/24 22:00 Melatonin 10 Mg Tablet PO QHS [facility] Oxycodone HCl 5 mg 09/22/24 15:10 Oxycodone 5 Mg Tablet PO Q6H PRN PRN Pain Score 1-10 Pantoprazole Sodium 40 mg 09/23/24 08:00 09/23/24 11:02 Pantoprazole Sodium 40 Mg Tablet PO Not Given DAILYCM [facility] Polyethylene Glycol 8.5 gm 09/22/24 15:57 Polyethylene Glycol 3350 17 Gm Packet PO QODAY PRN Constipation Potassium Chloride 20 meq 09/24/24 08:00 Potassium Chloride Oral Tablet 20 Meq PO DAILYCM [facility] Potassium Phos/Sodium Phos 1 packet 09/22/24 22:00 09/23/24 11:04 Na Biphos/Potassium Phosphate Packet PO Not Given BID [facility] Sodium Chloride 10 - 40 ml 09/22/24 21:29 09/23/24 10:51 0.9% Saline Lock 10 Ml Syringe IV 10 ml UD PRN Administration SALINE FLUSH Sotalol HCl 80 mg 09/22/24 22:00 09/23/24 11:03 Sotalol Hydrochloride 80 Mg Tablet PO Not Given BID [facility] Protocol Tamsulosin HCl 0.4 mg 09/22/24 22:00 09/23/24 11:03 Tamsulosin Hcl 0.4 Mg Capsule PO Not Given BID [facility] Tuberculin PPD 0.1 ml 09/30/24 10:00 Tuberculin,Purif.Prot.Deriv. 50 Tu/Ml Vial ID 09/30/24 10:01 X1 ONE Venlafaxine HCl 75 mg 09/23/24 10:00 09/23/24 11:03 Venlafaxine Xr 75 Mg Capsule PO Not Given DAILY [facility] Problem List History of poliomyelitis (Acute) Atrial fibrillation (Acute) Insomnia (Acute) Acute on chronic heart failure with preserved ejection fraction (HFpEF) (Acute) Hypernatremia (Acute) Encephalopathy (Acute) Acute respiratory failure with hypercapnia (Acute) Closed left hip fracture (Acute) Dysphagia (Acute) TERRENCE (acute kidney injury) (Acute) Closed fracture of neck of left femur (Acute) Syncope (Acute) Vitamin B12 deficiency (Acute) Depression (Acute) Restrictive lung disease (Acute) Essential (primary) hypertension (Acute) Debility (Acute) BPH (benign prostatic hypertrophy) (Chronic) Vital Signs Temp Pulse Resp BP Pulse Ox O2 Del Method O2 Flow Rate 97.5 F L 64 20 H 173/85 H 93 Bi-pap 3 09/23/24 10:19 09/23/24 10:19 09/23/24 10:19 09/23/24 10:19 09/23/24 10:19 09/23/24 10:19 09/23/24 10:19 Oxygen Flow Rate (L/min) 3 Oxygen Delivery Method Bi-pap Sodium 144 mmol/L (133-145) 09/23/24 06:45 Potassium 3.0 mmol/L (3.3-5.1) L 09/23/24 06:45 Chloride 99 mmol/L (98-108) 09/23/24 06:45 Carbon Dioxide 34.6 mmol/L (21.0-32.0) H 09/23/24 06:45 Anion Gap 10 (5-15) 09/23/24 06:45 BUN 14 mg/dL (4-19) 09/23/24 06:45 Creatinine 0.93 mg/dL (0.70-1.20) 09/23/24 06:45 Est GFR (MDRD) Non-Af 84 (>60) 09/23/24 06:45 BUN/Creatinine Ratio 15.1 RATIO (10-20) 09/23/24 06:45 Glucose 106 mg/dL (70-99) H 09/23/24 06:45 Assessment/Plan: Pain: acetaminophen 650mg PO Q6H PRN fever/pain 1-10 and oxycodone 5mg PO Q6H PRN pain 1-10. Resident has not had any PRN doses. Continue to monitor for increased pain and PRN usage. 2. Bowel: Miralax 8.5gm PO QODAY PRN constipation. Resident has had no doses so far. Last documented bowel movement 09/23/24. Continue to monitor for constipation and PRN usage. 3. Atrial fibrillation/DVT prophylaxis/Hypertension: apixaban 5mg PO BID, sotalol 80mg PO BID and losartan 100mg PO QHS. Continue to monitor for s/sx of bleeding, hemoglobin (last 9.8g/dL 09/23/24), QTc 474 msec (09/05/24), renal function (last SCr 0.93mg/dL 09/23/24), potassium (last 3.0mmol/L 09/23/24). 4. Restrictive lung disease s/s Polio: albuterol 2.5mg inhaled Q2H PRN shortness of breath/wheezing. Resident has had no doses of albuterol. Continue to monitor for shortness of breath and PRN usage. 5. Pneumonia: meropenem 1gm IV Q12 thru 09/29/24. Please continue to monitor for S/S of infection, diarrhea and renal function. 6. BPH: Tamsulosin 0.4mg PO BID. Continue to monitor for S/S of BPH and BP (range 108-173/67-85mmHg). 7. Insomnia: melatonin 10mg PO QHS. Continue to monitor for insomnia improvement, daytime drowsiness. 8. Vitamin B12 deficiency: cyanocobalamin 500mcg PO daily. Please consider decreasing dose to 250mcg daily as the last level from 08/10/24 was elevated at 1286 pg/mL. Thanks. 9. Allergic rhinitis: fluticasone 0.05% nasal spray 1 spray nasal daily. Please continue to monitor for allergies and nasal irritation. 10. Hypokalemia: potassium chloride 20mEq PO DAILYCM (x1 40mEq dose given this AM for K=3 mmol/L). Please continue to monitor potassium. 11. Hypophosphatemia: Neutra-phos 1 packet PO BID. Please continue to monitor potassium and phosphorus (last 1.7mg/dL 09/22/24). 12. GERD: pantoprazole 40mg PO daily. Please continue to monitor for S/S of GERD and diarrhea (BEERs). Assessment/Plan for indications treated with psychotropic medications: 1. Depression: venlafaxine XR 75 mg PO daily. Please see physician note regarding GDR. Monitor for diarrhea, nausea, appetite/weight loss, anxiety or drowsiness, suicidal thoughts or behaviors (Boxed Warning), symptoms of bleeding, symptoms of serotonin syndrome (including agitation, confusion, hyperreflexia, rigidity/myoclonus, tremor, tachycardia, tachypnea), sodium levels (last Na = 144mmol/L). Monitor blood pressure. Monitor for orthostatic hypotension, including postural dizziness, syncope or falls. Check orthostatic vital signs if suspicion of orthostasis. Monitor for hepatotoxicity (abdominal pain, nausea, jaundice, dark urine, AST/ALT as clinically indicated). Monitor for efficacy including resident symptoms, behaviors and indications of distress. Monitor for tolerability including mental status, cognition, excessive sleepiness, withdrawal or decreased participation in activities and decline in physical functioning. Maximize use of nonpharmacologic/behavioral interventions to facilitate dose reduction or discontinuation as appropriate. Please evaluate the appropriateness of GDR unless contraindicated. If appropriate, GDR should be attempted in 2 separate quarters within the first year of use or admission to TCU. If GDR attempted, monitor resident symptoms/behaviors. 2. Anxiety: buspirone 10mg PO BID. Please see physician note regarding GDR. Please continue to monitor for dizziness, drowsiness and S/S of anxiety. Monitor for efficacy including resident symptoms, behaviors and indications of distress. Monitor for tolerability including mental status, cognition, excessive sleepiness, withdrawal or decreased participation in activities and decline in physical functioning. Maximize use of nonpharmacologic/behavioral interventions to facilitate dose reduction or discontinuation as appropriate. Please evaluate the appropriateness of GDR unless contraindicated. If appropriate, GDR should be attempted in 2 separate quarters within the first year of use or admission to TCU. If GDR attempted, monitor resident symptoms/behaviors. Medical chart and medication regimen reviewed. The following medication irregularities or issues were identified: 1. Cyanocobalamin 500mcg PO daily. Please consider decreasing dose to 250mcg daily as the last level from 08/10/24 was elevated at 1286 pg/mL. Thanks. Date Date of Note: 09/23/24 Documented by User: Dr. Ezekiel Fitch MD 09/23/24 13:02 TCU RX Drug Regimen Review Provider Comments Provider responsibility Provider Comments to Recommendations by Pharmacy Agree
[2024-09-23] MEDS: Fluticasone 0.05% 1 SPRAY NASAL.SRY NASAL ×2 (12:10→22:50)
[2024-09-23] MEDS: Tuberculin,Purif.prot.deriv. 50 TU/ML Vial 0.1 ML ID (12:11)
--- NOTE | 2024-09-23 15:40 | NURSING ---
Dr. Fitch updated on pts BP 172/92 Pulse 65. N.O. received for Clonidine 0.1mg x1 dose and recheck BP in 1 hr. Order read back.
[2024-09-23] MEDS: cloNIDine HCl 0.1 MG Tablet PO (15:56)
--- NOTE | 2024-09-23 16:08 | CHAPLAIN ---
Type of Pastoral Visit ___ Initial Visit _x__ Follow-up Visit ___ On-call Visit ___ General Patient Visit ___ Spiritual Assessment ___ Family Conference ___ Bereavement ___ Rapid Response ___ Code Blue ___ Other (describe below) Pastoral Care Referral From _x__ Patient ___ Family ___ Nurse ___ Physician ___ Project Development Leader ___ Mac Operator ___ Other (describe below) Sacrament/Intervention _x__ Active listening ___ Anointing ___ Sabianism ___ Bereavement ___ Communion ___ Rossi exploration ___ ___ Life review _x__ Prayer ___ Reconciliation ___ Sacrament of Sick _x__ Supportive presence ___ Wedding ___ Other (describe below) Pastoral Comments patient is on the bi-pap but is sitting up in chair, watching TV, while holding hands with his ; pt has been seen in various units in this hospital over several weeks but has not been seen lately; pt is looking better than he was before; pt is welcoming even though talking is a bit more difficult with the bi-pap machine on; pt denies needs; spouse is also offered support; spouse then reveals her concerns about decisions made and questions asked of them by the medical team; spouse is given knowledge that she can speak to a patient advocate but she declines any information on that offer; spouse is given calm assurance of best care attempts and that we will all try to do our best for patient moving forward; pt is offered prayer and he agrees; pt is polite and expresses thanks for coming; spouse does not engage further in conversation; these words of concern from the spouse are reported to SW and UD after the visit
--- NOTE | 2024-09-23 17:28 | PCM.PN.BLA ---
Progress Note Patient was not able to have upper endoscopy today to evaluate his esophageal dysphagia and anemia secondary to anesthesia staffing issues. Physical Exam Const alert General Appearance: cooperative HEENT normocephalic Eyes PERRL and EOMs intact bilaterally Neck supple, no JVD and no carotid bruits Resp normal respiratory effort, normal air movement and clear to auscultation bilaterally Auscultation: diminished lung sounds Cardio regular rate and regular rhythm GI normal to inspection, nondistended, normoactive bowel sounds, non-tender and non-distended Extremity normal capillary refill General Extremity: Negative for edema Skin no rashes or lesions noted General Skin Exam: no breakdown Psych affect normal Appearance: appropriate Assessment & Plan Assessment/Plan (1) TERRENCE (acute kidney injury): (2) Closed fracture of neck of left femur: QUALIFIERS: Encounter type: initial encounter Qualified Code(s): S72.002A - Fracture of unspecified part of neck of left femur, initial encounter for closed fracture (3) Dysphagia: PLAN: Plan This is a 79-year-old male with past medical history significant for A-fib, hypertension, BPH, depression, 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 Found to have left hip fracture. Patient underwent surgical repair on September 09. He is currently having esophageal dysphagia. Differential diagnosis for esophageal dysphagia does include Raven esophagitis, or esophagitis, esophageal stricture. He should undergo an upper endoscopy divide upper GI tract because he needs to be on antiarrhythmics and anticoagulants. 10/20/2024-n.p.o. past midnight for upper endoscopy tomorrow. Visit Charges Inpatient E&M: [address] [facility] Subs L3
--- NOTE | 2024-09-23 18:39 | NURSING ---
Pt scheduled to have EGD at 11 am spoke with pharmacy regarding Merrem per pharmacist David ch to give earlier.
[2024-09-23] MEDS: Na Biphos/Potassium Phosphate PACKET 1 PACKET PO (22:44)
[2024-09-23] MEDS: busPIRone 5 MG Tablet 10 MG PO (22:49)
[2024-09-23] MEDS: Sotalol Hydrochloride 80 MG Tablet PO (22:49)
[2024-09-23] MEDS: Losartan Potassium 100 MG Tablet PO (22:49)
[2024-09-23] MEDS: MELATONIN 10 MG TABLET PO (22:49)
[2024-09-23] MEDS: APIXABAN 5 MG TABLET PO (22:50)
[2024-09-23] MEDS: Tamsulosin HCl 0.4 MG Capsule PO (22:50)
[2024-09-24 06:26] LABS: Anion Gap 10 (5-15); BUN 13 mg/dL (4-19); BUN/Creat Ratio 14.8 RATIO (10-20); Calcium,Total 8.9 mg/dL (7.6-11.0); Carbon Dioxide 33.9 mmol/L (21.0-32.0); Chloride 100 mmol/L (98-108); EST Glomerular Filtration Rate 88 (>60); Glucose 116 mg/dL (70-99); Potassium 3.2 mmol/L (3.3-5.1); Sodium Level 144 mmol/L (133-145)
[2024-09-24 06:49] VITALS: BMI 26.4
[2024-09-24 08:24] VITALS: BP 160/99; PULSE 64; RESP 20; TEMP 36.6; O2SAT 95
[2024-09-24] MEDS: 0.9% Saline Lock 10 ML Syringe IV (08:30)
[2024-09-24] MEDS: busPIRone 5 MG Tablet 10 MG PO ×2 (08:32→21:34)
[2024-09-24] MEDS: Sotalol Hydrochloride 80 MG Tablet PO ×2 (08:32→21:34)
[2024-09-24] MEDS: Potassium Chloride Oral Tablet 20 MEQ PO ×2 (08:32→16:58)
[2024-09-24] MEDS: Pantoprazole Sodium 40 MG Tablet PO (08:32)
[2024-09-24] MEDS: Fluticasone 0.05% 1 SPRAY NASAL.SRY NASAL ×2 (08:34→21:35)
[2024-09-24] MEDS: 0.9% Normal Saline (250mL Bag) 250 ML 15 ML IV (08:35)
[2024-09-24] MEDS: Meropenem 1 GM in 0.9% Normal Saline (100mL MB+) 100 ML IV ×2 (08:35→21:35)
[2024-09-24 09:19] VITALS: O2SAT 96
--- NOTE | 2024-09-24 10:58 | NURSING ---
Received fax from Endoscopy Anesthesia ddi not approve reason not optimized for anesthesia. Pt needs cardiology referral and his respiratory status should be optimized prior to having EGD. Updated Pt and .
--- NOTE | 2024-09-24 12:22 | NURSING ---
Asphalt Distributor Tender Note; Activity Asset: Dejah Morales prefers to be called David. David has returned to TCU after a fall and needs more therapy. He remains independent in his choice of daily activities. Watches tv, reads visits w/family and friends when not resting or in therapy. He stated not doing as good this time around. Staff will visits weekly, remind him of weekly activities and respect his right to say no.
--- NOTE | 2024-09-24 12:29 | CASEMGMT ---
Addendum entered by Bárbara Perez 09/24/24 16:12: phoned this worker requesting to schedule a meeting with herself, pt and two sisters to discuss hospice services. SW agreed and scheduled for 09/25 at 1500. Original Note: Social Work presented to this worker's office. requested to be educated on hospice services as pt's sister inquired about pt admitting to hospice. SW educated in depth on hospice services, explaining hospice is comfort care, symptom and pain management, not electing ongoing life sustaining treatment, therapy does not continue and hospice can be provided in any setting. Educated to eligibility for IPU. Explained with pt's current LOF, pt's needs would be best met in a SNF and hospice can provide services there. confirmed preference would be [facility] if a SNF was needed. explained possibly having pt continue with therapy, then at DC, pt would DC with hospice. Though, when on ICU and Dr. Monsivais presented hospice as an option, pt was not interested. SW explained the conversation with pt on code status and pt voiced DNR-CC and not wanting to pursue any extensive treatment. SW also explained that pt voiced he was weak and tired; and therapy may not help pt, but rather make him more tired. Thus, another indicator hospice may be most appropriate. expressed understanding, appreciative of information, and plans to follow up with pt and HAJA. SW offered ongoing assistance. Bárbara Perez RADARMAN BEEF LUGGER
[2024-09-24 16:35] VITALS: BMI 26.4
[2024-09-24 16:54] VITALS: O2SAT 97
[2024-09-24 19:45] VITALS: PULSE 64; O2SAT 99
[2024-09-24] MEDS: APIXABAN 5 MG TABLET PO (21:34)
[2024-09-24] MEDS: Na Biphos/Potassium Phosphate PACKET 1 PACKET PO (21:34)
[2024-09-24] MEDS: Losartan Potassium 100 MG Tablet PO (21:34)
[2024-09-24] MEDS: MELATONIN 10 MG TABLET PO (21:34)
[2024-09-25 05:35] VITALS: PULSE 61; O2SAT 96
[2024-09-25] MEDS: 0.9% Saline Lock 10 ML Syringe IV ×2 (07:09→21:46)
[2024-09-25 08:06] LABS: Anion Gap 9 (5-15); BUN 11 mg/dL (4-19); BUN/Creat Ratio 13.9 RATIO (10-20); Calcium,Total 8.6 mg/dL (7.6-11.0); Carbon Dioxide 36.7 mmol/L (21.0-32.0); Chloride 99 mmol/L (98-108); EST Glomerular Filtration Rate 91 (>60); Estimated Creatinine Clearance 64.75 ml/min (50-250); Glucose 162 mg/dL (70-99); Potassium 3.6 mmol/L (3.3-5.1); Sodium Level 144 mmol/L (133-145)
[2024-09-25 09:18] VITALS: BP 152/73; PULSE 63; RESP 18; TEMP 36.6; O2SAT 98
[2024-09-25] MEDS: Fluticasone 0.05% 1 SPRAY NASAL.SRY NASAL ×2 (09:18→21:54)
[2024-09-25] MEDS: busPIRone 5 MG Tablet 10 MG PO ×2 (09:19→21:48)
[2024-09-25] MEDS: Na Biphos/Potassium Phosphate PACKET 1 PACKET PO ×2 (09:19→21:52)
[2024-09-25] MEDS: Sotalol Hydrochloride 80 MG Tablet PO ×2 (09:19→21:44)
[2024-09-25] MEDS: Pantoprazole Sodium 40 MG Tablet PO (09:19)
[2024-09-25] MEDS: APIXABAN 5 MG TABLET PO ×2 (09:19→21:51)
[2024-09-25] MEDS: Potassium Chloride Oral Tablet 20 MEQ PO ×2 (09:19→17:17)
[2024-09-25] MEDS: Cyanocobalamin 500 MCG Tablet 250 MCG PO (09:20)
[2024-09-25] MEDS: Meropenem 1 GM in 0.9% Normal Saline (100mL MB+) 100 ML IV ×2 (09:32→22:01)
[2024-09-25] MEDS: Venlafaxine HCl 75 MG Tablet PO (11:44)
[2024-09-25 13:30] VITALS: O2SAT 91
--- NOTE | 2024-09-25 16:15 | CASEMGMT ---
Addendum entered by Bárbara Perez 09/26/24 13:17: [facility] can accept clinically. - PERRY spoke with ED SW to notify, if that option is needed. ED SW stated hospice is evaluating for IPU. - SW updated [facility]. Addendum entered by Bárbara Perez 09/26/24 10:36: referral to [facility] sent via [facility]. Original Note: Social Work SW met with patient, , sister and HAJA for a family meeting. SW spent approximately 60 minutes meeting with family answering questions extensively pertaining to differences between skilled vs intermediate care in a SNF, hospice vs palliative, and hospice services in general. Assisted in clarifying family's questions and misconceptions. educated to insurance coverage for all programs and SNF stay. educated to therapy benefits and downfalls. Discussed family and pt's wishes. Pt appeared in no distress during meeting, reported no pain or discomfort. Pt acknowledged therapy was kicking his butt but remains motivated to continue with therapy sessions. Pt aware he can elect to stop therapy at any time and DC, with or without hospice. SW inquired about pt's plan if pt DC'd when insurance issued LCD. Pt stated at that time he would DC on hospice services. Family continued using [facility] SNF in their examples for care and comparisons. SW inquired if [facility] would be their SNF preference at DC. Pt and family in agreement and realistic that pt cannot return home for to care for him. SW offered to place referral for [facility] to review, though could not hold a bed until pt is ready to DC. All in agreement and understand. SW agreed to place referral. SW offered ongoing assistance and support. Family and pt appreciative of time and explanation. SW will continue to follow. Bárbara Perez BUSINESS DEVELOPMENT ASSOCIATE IRIDOLOGIST
[2024-09-25] MEDS: Doxazosin 4 MG Tablet PO (21:50)
[2024-09-25] MEDS: Losartan Potassium 100 MG Tablet PO (21:51)
[2024-09-25] MEDS: MELATONIN 10 MG TABLET PO (21:51)
[2024-09-25] MEDS: 0.9% Normal Saline (250mL Bag) 250 ML 33 ML IV (22:00)
[2024-09-26 06:03] LABS: Anion Gap 9 (5-15); BUN 11 mg/dL (4-19); BUN/Creat Ratio 14.2 RATIO (10-20); Calcium,Total 8.9 mg/dL (7.6-11.0); Carbon Dioxide 36.2 mmol/L (21.0-32.0); Chloride 100 mmol/L (98-108); Creatinine, Serum 0.75 mg/dL (0.70-1.20); EST Glomerular Filtration Rate 93 (>60); Estimated Creatinine Clearance 64.75 ml/min (50-250); Glucose 124 mg/dL (70-99); Potassium 3.9 mmol/L (3.3-5.1); Sodium Level 145 mmol/L (133-145)
--- NOTE | 2024-09-26 07:44 | NURSING ---
Pt last rounded on at 0700 bed alarm on and working at 0720 pt alarm went off Nurse ran to room when entering pt was laying on floor face down. Pt able to tell nurse where he was at Vitals Bp unable to obtain Sp02 76% on RA applied O2 and came up to 94% 4L NC Pulse 68 Large Hematoma on right side of head. Pt able to move all extremities c/o back pain. Rapid response called. Several staff used back board to get pt back into bed. Pt sent to Emergency room. and Dr. Villa updated.
--- NOTE | 2024-09-26 11:13 | NURSING ---
This Nurse went down to ER to transport pt back to TCU with SENIOR SUPPORT ENGINEER Vansh. Upon entering room pt was lying in bed resting. This nurse tried to arouse pt which took several attempts to get him to open his eyes and was unable keep eyes open. This nurse felt pt wasn't medically stable to return to TCU d/t pt was A&0x2-3 yesterday. Waited in room to speak with Dr. Dawn d/t my concerns. and Sister entered room shortly before Dr. Dawn entered room. Pt's Family voiced they didn't want him to come back to TCU in this state. Dr. Dawn Stated Pt is a DNRCC and there was nothing else that they were going to do for pt and he should just go inpatient hospice. Dr. Dawn Left room and stated Call Hospice for room 2. Stayed with family and answered some questions and comforted them. Pt's Family very thankful and thanked me several times for my help.
--- NOTE | 2024-09-26 15:52 | PCM.DC.SUM ---
Providers Date of Admission: 09/22/24 Date of Discharge: 09/26/24 Primary Care Physician: Dr. Luis Medina MD Reason For Visit: FALL AND DEBILITY Diagnosis Discharge Diagnosis (1) TERRENCE (acute kidney injury): Status: Resolved Code(s): N17.9 - Acute kidney failure, unspecified (2) Closed fracture of neck of left femur: Status: Acute Code(s): S72.002A - Fracture of unspecified part of neck of left femur, initial encounter for closed fracture Qualifiers: Encounter type: initial encounter Qualified Code(s): S72.002A - Fracture of unspecified part of neck of left femur, initial encounter for closed fracture (3) Dysphagia: Status: Acute Code(s): R13.10 - Dysphagia, unspecified (4) Fall: Status: Acute Code(s): W19.XXXA - Unspecified fall, initial encounter (5) Chronic respiratory failure with hypoxia and hypercapnia: Status: Chronic Code(s): J96.11 - Chronic respiratory failure with hypoxia; J96.12 - Chronic respiratory failure with hypercapnia Medications at Discharge Home Medications tamsulosin 0.4 mg capsule 0.4 mg PO BID prostate 02/03/20 venlafaxine 75 mg capsule,extended release 24 hr 75 mg PO DAILY MOOD 05/31/22 cyanocobalamin (vitamin B-12) 500 mcg tablet 500 mcg PO DAILY supplement 07/10/24 fluticasone propionate 50 mcg/actuation nasal spray,suspension 1 spray NASAL BID respiratory 30 days #16 grams 08/18/24 apixaban 5 mg tablet (Eliquis) 5 mg PO BID anticoagulant #180 tabs 09/04/24 sotalol 80 mg tablet 80 mg PO BID heart health #180 tabs 09/04/24 buspirone 5 mg tablet 10 mg (2 x 5 mg) PO BID mood #0 tabs 09/22/24 meropenem 1 gram intravenous solution 1 g IV Q12 infection 7 days #14 ea 09/22/24 losartan 50 mg tablet 100 mg PO QHS BP 09/23/24 melatonin 10 mg capsule 10 mg PO QHS 09/23/24 meropenem 1 gram intravenous solution 1 g IV Q12H 09/23/24 pantoprazole 40 mg tablet,delayed release (Protonix) 40 mg PO DAILY 06/03/25 potassium chloride 10 mEq capsule,extended release 20 meq PO DAILY 09/23/24 acetaminophen 650 mg/20.3 mL oral solution 650 mg PO Q6H PRN Pain 1-10 Or Fever 09/26/24 albuterol sulfate 2.5 mg/3 mL (0.083 %) solution for nebulization 2.5 mg inhalation Q2H PRN SOB &/OR WHEEZING 09/26/24 oxycodone 5 mg tablet 5 mg PO Q6H PRN Pain Score 1-10 09/26/24 Hospital Course Summary of Care Provided Minutes Spent on Discharge: 15 Hospital Course: Patient is a 79-year-old male who was admitted to the transitional care unit on 09/22/2024 for debility secondary to acute on chronic respiratory failure requiring intubation with hypoxemia and hypercapnia, urinary tract infection, left hip fracture with history of left hip hemiarthroplasty on 09/09/2024 and acute renal failure. He was initially intubated on 09/05/2024 after having a fall secondary to syncope resulting in a left hip fracture. He has known history of restrictive lung disease and has had polio in the past. He was weaned off the ventilator on 09/15/2024 but had to be reintubated for hypercapnia on 09/18/2024. He was transferred to the transitional care unit at [facility] on 09/22/2024 for strengthening/rehabilitation. On the morning of 09/26/2024 he had a fall while on transitional care and was sent to the emergency department. He had a large scalp hematoma but no intracranial bleeding. While in the emergency room he became progressively less responsive and had progressive hypoxemia with hypercapnia. His family changed his CODE STATUS to DNR CC and hospice was consulted. He was transferred from the ER to the hospice center. I have ever seen or examined this patient. Weight / BMI Weight Weight: 153 lb 9.6 oz Body Mass Index (BMI) 26.4 ABG / Lab / Microbiology Data 09/23/24 07:00 09/26/24 05:20 Laboratory: Laboratory Results - last 24 hr 09/26/24 05:20: Sodium 145, Potassium 3.9, Chloride 100, Carbon Dioxide 36.2 H, Anion Gap 9, BUN 11, Creatinine 0.75, Estim Creat Clear Calc 64.75, Est GFR (MDRD) Non-Af 93, BUN/Creatinine Ratio 14.2, Glucose 124 H, Calcium 8.9 D/C Instructions DC O2, CPAP, BIPAP Needs Home O2 Discharge instructions: No Please Follow Up With: Burt Quinones, Meaningful Use Info Meaningful Use Meaningful Use Diagnoses (Choose all that apply): None applicable Ischemic Stroke Statin Dosing Therapy Reference: STATIN DOSE THERAPY REFERENCE: * Patients > 75 years receive moderate or high dose statin therapy. * Patients 75 years or YOUNGER should receive HIGH intensity statin dose unless contraindicated. You will be required to document reason for non-treatment if statin daily dose does not meet guidelines. HIGH DOSE STATIN THERAPY DAILY Atorvastatin > than or = to 40 mg Rosuvastatin > than or = to 20 mg Amlodipine + Atorvastatin > than or = to 2.5/40 mg Ezetimibe + Simvastatin 10/80 mg Simvastatin 80mg Discharge Plan Admission Admit Date/Time: 09/22/24 14:56 Attending Provider: Ezekiel Fitch Chi Primary Care Provider: Luis Medina Discharge Orders/Prescriptions Prescriptions: No Action sotalol 80 mg tablet 80 mg PO BID Qty: 180 3RF Eliquis 5 mg tablet 5 mg PO BID Qty: 180 3RF cyanocobalamin (vitamin B-12) 500 mcg tablet 500 mcg PO DAILY tamsulosin 0.4 MG capsule 0.4 mg PO BID venlafaxine 75 mg capsule,extended release 24hr 75 mg PO DAILY fluticasone propionate 50 mcg/actuation [place],Suspension 1 spray NASAL BID 30 Days Qty: 16 0RF melatonin 10 mg capsule 10 mg PO QHS meropenem 1 gram recon soln 1 g IV Q12H potassium chloride 10 mEq capsule, extended release 20 meq PO DAILY pantoprazole [Protonix] 40 mg tablet,delayed release (DR/EC) 40 mg PO DAILY losartan 50 mg Tablet 100 mg PO QHS albuterol sulfate 2.5 mg /3 mL (0.083 %) Solution For Nebulization 2.5 mg inhalation Q2H PRN (Reason: SOB &/OR WHEEZING) oxycodone 5 mg Tablet 5 mg PO Q6H PRN (Reason: Pain Score 1-10) acetaminophen 650 mg/20.3 mL Solution 650 mg PO Q6H PRN (Reason: Pain 1-10 Or Fever) buspirone 5 mg Tablet 10 mg PO BID Qty: 0 0RF meropenem 1 gram Recon Soln 1 g IV Q12 7 Days Qty: 14 0RF Referrals / Follow Up: Luis Medina MD [Primary Care Provider] -
--- NOTE | 2024-10-02 14:27 | MDS.RN ---
Information for the MDS was obtained from review of the clinical record, interview of resident, staff, and direct observation of resident?s care.
== END 2024-09-26 07:35 | disposition short-term general hospital (02) | DRG 559 ==
PROVIDERS: Admitting Provider Family Medicine Geriatric Medicine; PCP Family Medicine; Referring Provider Family Medicine Geriatric Medicine; Visit Provider Family Medicine Geriatric Medicine
DX: S72.002D Fracture of unspecified part of neck of left femur, subsequent encounter for closed fracture with routine healing (principal); J18.9 Pneumonia, unspecified organism; J96.12 Chronic respiratory failure with hypercapnia; J96.11 Chronic respiratory failure with hypoxia; I50.32 Chronic diastolic (congestive) heart failure; E87.0 Hyperosmolality and hypernatremia; E83.39 Other disorders of phosphorus metabolism; I11.0 Hypertensive heart disease with heart failure; F32.9 Major depressive disorder, single episode, unspecified; I48.91 Unspecified atrial fibrillation; E53.8 Deficiency of other specified B group vitamins; J30.9 Allergic rhinitis, unspecified; K21.9 Gastro-esophageal reflux disease without esophagitis; F41.9 Anxiety disorder, unspecified; J98.4 Other disorders of lung; S00.03XA Contusion of scalp, initial encounter; W19.XXXA Unspecified fall, initial encounter; R13.19 Other dysphagia; B91 Sequelae of poliomyelitis; Z79.01 Long term (current) use of anticoagulants; N40.0 Benign prostatic hyperplasia without lower urinary tract symptoms; G47.00 Insomnia, unspecified; Z79.899 Other long term (current) drug therapy; Z79.51 Long term (current) use of inhaled steroids; X58.XXXD Exposure to other specified factors, subsequent encounter; Z96.642 Presence of left artificial hip joint; Z99.81 Dependence on supplemental oxygen; Y92.129 Unspecified place in nursing home as the place of occurrence of the external cause
CPT/HCPCS: 36415; 71045; 80048; 85025; 92526; 92610; 97110; 97162; 97166; 97530; 97535; J2185; A4216

== ENCOUNTER 2024-09-26 07:40 | Emergency (ER) | payer MEDICARE, SELFPAY ==
[2024-09-26] VITALS (10 sets, daily range): BP systolic 146–189; BP diastolic 71–97; PULSE 57–71; RESP 16–22; TEMP 36.4; O2SAT 89–99; BMI 26.1
--- NOTE | 2024-09-26 07:45 | CT_ITS ---
PROCEDURE: SPINE CERVICAL WITHOUT CONTRAS 09/26/2024 REASON FOR EXAM: INJURY/PAIN Fall. Patient on blood thinners. TECHNIQUE: Cervical spine CT without contrast. Coronal and Sagittal reconstruction series were provided. One or more dose reduction techniques were used (e.g., Automated exposure control, adjustment of the mA and/or kV according to patient size, use of iterative reconstruction technique RADIATION DOSE SUMMARY: CTDlvol: 59.98 mGy DLP: 1086.88 mGycm COMPARISON: None. FINDINGS: There is torticollis to the left. There is severe dextroscoliosis of the lower cervical and thoracic spine. There is no evidence of fracture or subluxation. There is degenerative disc disease, C3-4 C5-6 and C6-7. 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 There is multilevel facet arthropathy without spondylolisthesis. There is emphysema in both lung apices. The paravertebral soft tissues appear unremarkable. CT/Spine Cervical without Contras IMPRESSION: 1. No evidence of acute injury. 2. Other findings as noted. Reading Location: [id number]
--- NOTE | 2024-09-26 07:45 | CT_ITS ---
PROCEDURE: BRAIN/HEAD WITHOUT CONTRAST 09/26/2024 REASON FOR EXAM: INJURY/PAIN TECHNIQUE: Head CT without intravenous contrast. Coronal and Sagittal reconstruction series were provided. One or more dose reduction techniques were used (e.g., Automated exposure control, adjustment of the mA and/or kV according to patient size, use of iterative reconstruction technique. RADIATION DOSE SUMMARY: CTDlvol: 59.98 mGy DLP: 1086.88 mGycm COMPARISON: CT head without contrast, 09/12/2024. FINDINGS: There is no evidence of acute intracranial hemorrhage or infarction. There are no abnormal intracranial masses or mass effects. The ventricular system and basilar cisterns are unremarkable. There is calcific vascular disease of the intracranial portion of both internal carotid arteries. There is a large right frontal scalp hematoma. The skull base and calvarium are normal. The paranasal sinuses and mastoid air cells are unremarkable. There is left optic nerve head drusen. The intraorbital contents are otherwise unremarkable. There is noted significant cerumen in the left external ear canal. CT/Brain/Head without Contrast IMPRESSION: 1. No evidence of acute intracranial pathology. 2. Large right frontal scalp hematoma. 3. Other findings as noted. Reading Location: [id number]
--- NOTE | 2024-09-26 07:54 | EX.ED.GENINJ ---
HPI History of Present Illness Chief Complaint: Fall Detail of Chief Complaint: Patient presents from TCU after fall out of bed. Informant: SNF Onset/Context/Timing Onset: Today Mechanism/Context: Blunt Injury and Fall Location of pain/injuries: - (Forehead) Quality of Pain: - (Mild.) Location: Right forehead near the hairline Current Severity: Mild Maximum Severity: Mild Worsened by: Nothing Relieved by: Nothing Associated Symptoms Associated Symptoms: Negative for Parasthesias Narrative Narrative: Patient was admitted to the hospital 05 September. Patient was recently discharged from the hospital. Patient was admitted for acute on chronic hypoxemia and hypercapnia secondary to restrictive lung disease. Patient was eventually weaned off ventilator. Patient was also noted to have an acute metabolic encephalopathy. Patient suffered a left femoral neck fracture due to the fall. Patient had bronchitis/pneumonia due to Morganella Morgagni patient was also noted to have acute kidney injury, congestive heart failure, atrial fibrillation, BPH and hypokalemia. Patient presents from TCU after fall from bed. Patient has not alert/awake or oriented. Will need to determine his baseline. Review of records indicates patient is on apixaban. Patient reports mild head pain. He has to be constantly stimulated to open his eyes and answers questions. He does know he is in [place]. He does not know his name. He does not know the month. He did not know the year. History is very limited. Prior similar symptoms: Yes Recent Illness/Hospitalization: Yes [facility] Medical History Cardiology follow-up encounter 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 Wears glasses Cancer Depression Claustrophobia Anxiety Alcohol use Redness of skin Uses crutches Arthritis Bladder disease Back pain History of edema History of diverticulitis Post-polio syndrome Non-smoker BiPAP (biphasic positive airway pressure) dependence History of CHF (congestive heart failure) On home oxygen therapy History of pain when walking History of stress test History of echocardiogram Chronic respiratory failure with hypoxia and hypercapnia On mechanically assisted ventilation Post-poliomyelitis syndrome Acute on chronic respiratory failure with hypoxia and hypercapnia Hypertension Lumbar radicular pain Degenerative scoliosis Scoliosis Segmental dysfunction of thoracic region Home Medications ?Medication ?Instructions ?Recorded ?Last Taken ?Type tamsulosin 0.4 mg capsule 0.4 mg PO BID prostate 02/03/20 08/09/24 History venlafaxine 75 mg capsule,extended 75 mg PO DAILY MOOD 05/31/22 08/09/24 History release 24 hr cyanocobalamin (vitamin B-12) 500 500 mcg PO DAILY supplement 07/10/24 07/28/24 History mcg tablet fluticasone propionate 50 1 spray NASAL BID respiratory 30 08/18/24 Unknown Rx mcg/actuation nasal days #16 grams spray,suspension apixaban 5 mg tablet (Eliquis) 5 mg PO BID anticoagulant #180 tabs 09/04/24 09/22/24 Rx 5 mg sotalol 80 mg tablet 80 mg PO BID heart health #180 tabs 09/04/24 Unknown Rx buspirone 5 mg tablet 10 mg (2 x 5 mg) PO BID mood #0 09/22/24 Unknown Rx tabs meropenem 1 gram intravenous 1 g IV Q12 infection 7 days #14 ea 09/22/24 Unknown Rx solution losartan 50 mg tablet 100 mg PO QHS BP 09/23/24 Unknown History melatonin 10 mg capsule 10 mg PO QHS 09/23/24 Unknown History meropenem 1 gram intravenous 1 g IV Q12H 09/23/24 Unknown History solution pantoprazole 40 mg tablet,delayed 40 mg PO DAILY 09/23/24 Unknown History release (Protonix) potassium chloride 10 mEq 20 meq PO DAILY 09/23/24 Unknown History capsule,extended release acetaminophen 650 mg/20.3 mL oral 650 mg PO Q6H PRN Pain 1-10 Or 09/26/24 Unknown History solution Fever albuterol sulfate 2.5 mg/3 mL 2.5 mg inhalation Q2H PRN SOB &/OR 09/26/24 Unknown History (0.083 %) solution for nebulization WHEEZING oxycodone 5 mg tablet 5 mg PO Q6H PRN Pain Score 1-10 09/26/24 Unknown History Allergy/AdvReac Type Severity Reaction Status Date / Time metronidazole (From Flagyl) AdvReac Nausea/Vom/ Verified 09/04/24 23:42 Diarrhea Family History Father Myocardial infarction Heart disease Mother Shy-Drager syndrome Other CVA (cerebral vascular accident) Surgical History History of selective injection of anesthetic agent around lumbar nerve root Hx of lithotripsy History of cardiac catheterization Hx of cystoscopy H/O adenoidectomy History of uvulectomy Hip fracture, right History of open reduction and internal fixation (ORIF) procedure Right tibial fracture H/O spinal fusion Social History household members: spouse housing: house Smoking Status: Never smoker substance use type: does not use ROS ROS ED Review of Systems ROS Unobtainable: due to mental status Neurologic Neurologic: Reports headache(s) EXAM Physical Exam Const Vital Signs: 09/26/24 07:41 09/26/24 07:50 09/26/24 08:40 Temperature 97.6 F L Temperature Source Temporal Pulse Rate 69 71 Respiratory Rate 18 18 Respiratory Effort Normal Non-Labored Respiratory Depth Normal Respiratory Pattern Normal Blood Pressure 174/84 H 165/79 H Blood Pressure Mean 114 107 Pulse Ox 96 91 Oxygen Delivery Method Nasal Cannula Nasal Cannula Nasal Cannula Oxygen Flow Rate (L/min) 3 2 Positive well nourished, well developed and unkempt Constitutional Narrative: Patient is not awake or alert. He does arouse to verbal and at times tactile stimulus. General Appearance ED: unkempt and well developed HEENT Reports TM's clear HEENT Narrative: There is a significant hematoma noted right frontal area. There is no palpable pression. There is no clinical signs of basilar skull fracture. trauma and tenderness Nose: Negative for septum abnormal Tympanic Membrane ED: Yes TM's clear Eyes PERRL and EOMs intact bilaterally Neck Neck Narrative: Patient was placed in a c-collar since he cannot be cleared per Nexus criteria. Trachea is midline. Chest Wall inspection of chest normal and palpation of chest normal Resp No normal respiratory effort and No clear to auscultation bilaterally Resp Narrative: Bibasilar rales. Breath sounds are symmetric. Patient is tachypneic. Cardio regular rhythm and no murmurs Rate: regular rate GI normal to inspection, nondistended, normoactive bowel sounds, non-tender, non-distended and no masses GI Narrative: There is no pain ovation of the pelvis. Extremity Negative for normal to inspection Extremity Narrative: Healing incision left lateral proximal hip due to recent surgery for femoral neck fracture. Neuro No oriented x3, CN's II-XII intact bilaterally and moves all extremities Debi Coma Scale: document GCS findings To Voice Obeys Commands Confused 13 Sensorium / Orientation: Negative for alert Plantar Reflex: Downgoing: bilateral Psych Psych Narrative: Difficult to assess. Appearance: unkempt Skin Skin Narrative: Significant hematoma right forehead. MDM MDM MDM Narrative Medical decision making narrative: With recent fall significant hematoma and the fact the patient is on apixaban we will obtain CT of the head to assess for subdural hematoma, epidural hematoma, traumatic subarachnoid hemorrhage or intraparenchymal contusion. Since he cannot be cleared per Nexus criteria c-collar was placed and C-spine film was ordered as well. Because he has a history of respiratory failure with hypercapnia ABG was obtained to determine if this is because of his altered mental status. He was placed on the monitor. We have made NPO. C-collar was applied since he did not arrive with a c-collar in place. History & Record Review Additional record(s) reviewed:: Prior inpatient record, Prior ED visit and Prior labs ABG Data Attestation: I personally reviewed and interpreted this ABG as follows: Interpretation: Interpretation under the treatment and reevaluation portion of the EMR ABG results: ABG 09/26/24 08:08 Specimen Type ART Sample Site L Brach pH 7.33 L Bicarbonate Actual 43.3 H Total CO2 46 Base Excess 17 H O2 Saturation 94 L O2 % 3.0 ABG pCO2 82.4 H* ABG pO2 82 O2 Delivery Device Cannula Vent Mode Not entered Crit Call To/Read Back Yes Blood Gas Notified Whom Dr Dawn Blood Gas Notified Time 08:09:47 Radiography Chest X-Ray - ED: 2 View (2 view x-ray of the knee was independent reviewed interpreted by me at 1029 is negative for any acute process. There is no evidence of fracture, subluxation dislocation or effusion.) and Read by ED Physician (Three-view x-ray of the hip reveals pia to be in place. There is no radiolucency to suggest fracture. Patient is status post total hip arthroplasty. He also has had prior surgery on the right hip with hardware for open reduction internal fixation. There is no obvious hip fracture) Diagnostic Testing: Clinical Impression(s) from Imaging Studies Brain CT 09/26/24 07:45 IMPRESSION: 1. No evidence of acute intracranial pathology. 2. Large right frontal scalp hematoma. 3. Other findings as noted. Reading Location: [facility] Cervical Spine CT 09/26/24 07:45 IMPRESSION: 1. No evidence of acute injury. 2. Other findings as noted. Reading Location: [id number] C-minus of the head reveals a significant extracranial right-sided hematoma. There is no mention of fracture. There is no fluid in the sinuses. There is no evidence of subdural hematoma, epidural hematoma, traumatic subarachnoid hemorrhage or intraparenchymal contusion. This too was reviewed by me independently at 0845. CT of the cervical spine reveals significant degenerative changes. There is no evidence of subluxation, dislocation or fracture. There is no prevertebral soft tissue swelling noted. Awaiting formal read by radiologist Treatment and Re-Evaluation Narrative: I was informed by the respiratory therapist he is complaining of left hip pain now. She gave me the ABG results. Patient has a mild acidosis. pCO2 is 82.4, pO2 81.7, bicarb 43.3, base excess +17.3 and saturation 94.1% on oxygen by nasal cannula. This represents a mixed acid-base picture. Patient has chronic CO2 retention with worsening of his CO2 retention and hypoxemia. 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 I was informed by his nurse at 0955 that family states he is not complaining of knee pain. Since patient had altered mental status and initially was not able to give an adequate history and physical since he is now complaining of knee pain and has knee pain will obtain x-ray of the knee. Discharge Plan Triage Chief Complaint: Fall ED Provider: Derrick Dawn Dx/Rx/DC Orders Clinical Impression: Forehead contusion, Anticoagulant long-term use, Contusion of right hip, initial encounter, Contusion of right knee, initial encounter, Injury due to fall Prescriptions: No Action sotalol 80 mg tablet 80 mg PO BID Qty: 180 3RF Eliquis 5 mg tablet 5 mg PO BID Qty: 180 3RF cyanocobalamin (vitamin B-12) 500 mcg tablet 500 mcg PO DAILY tamsulosin 0.4 MG capsule 0.4 mg PO BID venlafaxine 75 mg capsule,extended release 24hr 75 mg PO DAILY fluticasone propionate 50 mcg/actuation [place],Suspension 1 spray NASAL BID 30 Days Qty: 16 0RF melatonin 10 mg capsule 10 mg PO QHS meropenem 1 gram recon soln 1 g IV Q12H potassium chloride 10 mEq capsule, extended release 20 meq PO DAILY pantoprazole [Protonix] 40 mg tablet,delayed release (DR/EC) 40 mg PO DAILY losartan 50 mg Tablet 100 mg PO QHS albuterol sulfate 2.5 mg /3 mL (0.083 %) Solution For Nebulization 2.5 mg inhalation Q2H PRN (Reason: SOB &/OR WHEEZING) oxycodone 5 mg Tablet 5 mg PO Q6H PRN (Reason: Pain Score 1-10) acetaminophen 650 mg/20.3 mL Solution 650 mg PO Q6H PRN (Reason: Pain 1-10 Or Fever) buspirone 5 mg Tablet 10 mg PO BID Qty: 0 0RF meropenem 1 gram Recon Soln 1 g IV Q12 7 Days Qty: 14 0RF Primary Care Provider: Luis Medina Referrals: Luis Medina MD [Primary Care Provider] - Activity Restrictions/Additional Instructions: 1. Hold his apixaban dose for the next 6 doses 2. You may give patient Tylenol for pain. Print Language: Serbian Disposition Disposition: [facility]
[2024-09-26 08:12] LABS: Base Excess 17 mmol/L (-2 to +2); Bicarbonate 43.3 mmol/L (22-26); Blood Gas Specimen Type ART; Mode Not entered; O2 Delivery Device Cannula; PO2 82 mmHG (75-100); SITE L Brach; SO2 94 % (95-99); Total Carbon Dioxide 46 mmol/L; pCO2 82.4 mmHg (35-45); pH 7.33 (7.35-7.45)
--- NOTE | 2024-09-26 08:14 | RAD_ITS ---
PROCEDURE: HIP, UNI W/ PELVIS 2-3 VIEWS 09/26/2024 REASON FOR EXAM: PAIN STATUS POST FALL TECHNIQUE: Three (3) views of the left hip COMPARISON: 09/05/2024 FINDINGS: Bones: A left hip arthroplasty is in place. The head of the prosthesis is in good alignment in the acetabulum. The intramedullary portion of the prosthesis is in good alignment. No periprosthetic fracture. A right hip nail and intramedullary rishi are redemonstrated. Joints: No subluxations or dislocations. Soft tissues: Metallic surgical pia are noted along the lateral aspect of the hip. Multiple phleboliths are seen in the pelvis. RAD/HIP, UNI W/ Pelvis 2-3 Views IMPRESSION: Satisfactory left hip arthroplasty. Reading Location: [place] [id number]
--- NOTE | 2024-09-26 10:15 | RAD_ITS ---
PROCEDURE: KNEE 1 OR 2 VIEWS 09/26/2024 REASON FOR EXAM: INJURY/PAIN TECHNIQUE: Three-view left knee COMPARISON: None provided. RAD/Knee 1 or 2 Views IMPRESSION: No left knee joint effusion is noted. Mild left knee degenerative changes are most apparent at patellofemoral and med ial compartments. No definite joint narrowing is seen. No acute fracture or dislocation is evident. If clinical concern persists, short-term follow-up imaging may be obtained to r ule out a currently occult fracture. Reading Location: [id number]
--- NOTE | 2024-09-26 15:50 | CM.ED ---
Social work 1250: PERRY received a call from [facility] PERRY ANTONIO requesting update on patient. PERRY passed along knowing that patient and family requested patient to enter hospice care. Bárbara ANTONIO stated if hospice was unable to admit patient to the inpatient unit, Bárbara ANTONIO had just received information that [facility] had clinically accepted patient. SW to keep Bárbara ANTONIO updated. 1300: PERRY met briefly with levers lace machine operator Reena and passed along the above information. Reena received an update on patient's status from check writing machine operator Jemima prior to entering patient's room. 1540: Reena called this SW (ph: [phone]) stating ability to accept patient at the inpatient unit. Reena clarified that [facility] ED staff and patient's family had already been notified and there were no further needs from this SW. PERRY called Bárbara ANTONIO to inform of this information. No further needs at this time. Aminata Leo, BELT MAKER HELPER, WINDOW REPAIRER
--- NOTE | 2024-09-26 15:50 | ED.RN ---
Report called to Hospice inpatient unit.
== END 2024-09-26 16:34 | disposition skilled nursing facility (03) ==
PROVIDERS: Emergency Provider Emergency Medicine; PCP Family Medicine; Visit Provider Emergency Medicine
DX: S00.03XA Contusion of scalp, initial encounter (principal); I50.9 Heart failure, unspecified; I11.0 Hypertensive heart disease with heart failure; I48.91 Unspecified atrial fibrillation; S70.01XA Contusion of right hip, initial encounter; S80.01XA Contusion of right knee, initial encounter; Z79.01 Long term (current) use of anticoagulants; Z79.899 Other long term (current) drug therapy; W06.XXXA Fall from bed, initial encounter
CPT/HCPCS: 36600; 70450; 72125; 73502; 73560; 82803; 99283